=== PATIENT | female | born 1955 | race Caucasian/White ===

== ENCOUNTER 2022-12-03 09:27 | Emergency (ER) | payer MEDICARE, BC, SELFPAY ==
--- NOTE | 2022-12-03 09:30 | DI.RAD_ITS ---
Exam(s) XR WRIST LT COMP NAVICULAR EXAM: XR WRIST LT COMP NAVICULAR CLINICAL HISTORY: fall on stairs. TECHNIQUE: 2D digital imaging was performed. COMPARISON: No exams were available for comparison FINDINGS: Four views. There is a very subtle cortical irregularity the dorsal lateral aspect of the distal radius, possible subtle nondisplaced cortical fracture at this level. No other osseous findings. Correlation with s ite of tenderness recommended No osseous lesions. No radiopaque foreign body. IMPRESSION: Possible very subtle fracture on the dorsal lateral aspect of the distal radius just proximal to the radial styloid. Nondisplaced. DATA REPOSITORY: RADIATION DOSE DELIVERED:
[2022-12-03 09:33] VITALS: BP 138/48; PULSE 70; RESP 18; TEMP 36.2; O2SAT 93
--- NOTE | 2022-12-03 09:43 | W.ED.GENAD ---
Discharge Plan Disposition Patient Disposition: Home Condition: Good Discharge Details Clinical Impression: Closed fracture of radial styloid, Acute wrist pain, Abrasion of knee, Finger sprain Primary Care Provider: Oleg Trinidad ED Provider: Navya Jorgensen Discharge Instructions Instructions: Wrist Fracture in Adults (ED) Additional Instructions: As we discussed, there is the possibility of a small nondisplaced fracture in the wrist. I am more concerned with the scaphoid bone and potential injury to this. Please continue with the brace provided for the next 2 weeks until reevaluated by primary care and repeat imaging can be completed. Please encourage rest, ice, elevation. Tylenol and ibuprofen as needed for discomfort. Please monitor your abrasion for signs of infection including redness, warmth, drainage, increased pain, fever/chills. If you develop these or other new/worsening symptom please seek care urgently once again. Otherwise, please follow-up with primary care in 2 weeks for repeat imaging. Referrals: Oleg Trinidad [Primary Care Provider] - Discharge Data Discharge Date/Time-TO BE ENTERED AT DEPARTURE: 12/03/22 11:34 Medical Decision Making Patient is a pleasant 67 year old female presenting with c/c of left wrist and left middle finger pain after falling up stairs. States she has no other new area of pain but has chronic pain back and chronic SOB. Unchanged. No head injury, denies LOC. Suffered abrsion on left knee but states this is more from rug burn, no pain with ambulation. Cleaned the wound. Unknown tetanus. On exam, patient appears nontoxic. She is hemodynamically stable, resting comfortably. She does have a significant blood pressure discrepancy between the right and the left arm with the right being lower. She reports that this is typical. She states when she sees her primary care the initial blood pressure reading in the right arm is always low in the left arm is higher. They are concerned with her hypotension and have been trying to manage her medications around this. I am more concerned with the blood pressure discrepancy. However, patient states that this been going on for years and does not feel that this is an emergent issue today. The pulse on the right arm is slightly thready. Then down on the left arm. However, patient has no symptoms in the right arm and denies any pain. She does have a long history of smoking, has had cardiac stents placed. I did advise that she follow-up with her primary care regarding this blood pressure discrepancy and have placed a call to the [facility] and awaiting callback. Regard to the trauma, patient has no C-spine tenderness, no midline pain. Full range of motion. She has no pain with AP or lateral chest compression. Sensation is intact throughout. She has a circular abrasion on the left knee but no deep involvement, no effusion, ligamentously intact good range of motion. Pain and swelling is more in the distal radius of the left wrist. Patient is also point tender over the anatomical snuffbox. Pain with axial loading of the thumb. She does have some pain and swelling as well over the PIP of the left middle finger. Will obtain x-rays. She declines any further analgesics. FINDINGS: 3 views No evidence of acute fracture or dislocation.? No radiopaque foreign body.? Bone density age-appropriate.? No osseous lesions nor erosions IMPRESSION: Thickened osseous findings in finger. FINDINGS: Four views There is a very subtle cortical irregularity the dorsal lateral aspect of the distal radius, possible subtle nondisplaced cortical fracture at this level.? No other osseous findings.? Correlation with site of tenderness recommended No osseous lesions.? No radiopaque foreign body. IMPRESSION: Possible very subtle fracture on the dorsal lateral aspect of the distal radius just proximal to the radial styloid.? Nondisplaced. Discussed with patient. Thumb spica applied. Encouraged RICE. Advised repeat imaging. Advised f/u with PCP regarding BP. Strict return precautions discussed. Discussed supportive care. All of her questionsa nd concerns were addressed, she is in agreement with thsi plan. HPI General Date/Time Provider Initiated Documentation: 12/03/22 09:43. Limitations to Documentation: no limitations. Information obtained by: patient and RN notes reviewed. History of Present Illness 67 year old F presents to the emergency department with the chief complaint of left wrist, middle finger pain and abrasion to left knee, described as moderate, Quality is described as aching, and is localized to the left, upper extremity and lower extremity. Patient reports no radiation. Patient started experiencing this hour(s) and it has been constant. No relieving factors improve symptom(s), Movement worsens symptoms . Patient notes no other symptoms.. Patient did receive the following treatments prior to arrival, none General Stated Complaint: Orthopedic RAMON: 4 Review of Systems Constitutional Constitutional: Reports as per HPI, Denies fever(s), Denies headache(s) and Denies weakness ENT Ears, Nose, Mouth, and Throat: Denies headache(s) Cardiovascular Cardiovascular: Reports as per HPI and Denies chest pain Respiratory Respiratory: Reports as per HPI and Denies cough Musculoskeletal Musculoskeletal: Reports as per HPI and Denies tingling Integumentary/Breasts Skin/Breast: Reports as per HPI, Denies rash and Denies wounds Neurologic Neurologic: Reports as per HPI, Denies headache(s), Denies tingling, Denies paresthesias and Denies weakness [facility] All Active Problems (Updated 12/03/22 @ 11:31 by SHEREE Duvall) Closed fracture of radial styloid (Acute) Acute wrist pain (Acute) Abrasion of knee (Acute) Finger sprain (Acute) Social History Smoking risk assessment performed?: No Exam Const General: cooperative, healthy appearing, comfortable, no acute distress, well developed and well groomed Nutritional Appearance: average body habitus and well nourished Orientation: alert and awake [facility] Head: normal to inspection, no palpable skull fracture and atraumatic Neck Neck: normal visual inspection and full ROM Chest Chest: normal inspection of the chest and no tenderness Resp Effort & Inspection: normal respiratory effort, able to speak in complete sentences and no respiratory distress Auscultation: clear to auscultation bilaterally Cardio Rate: regular rate Rhythm: regular rhythm Heart Sounds: S1 normal and S2 normal Skin Trauma: abrasion (left knee) Neuro General: patient alert and patient awake Cognition: normal cognition Speech: speech normal Gait: normal gait Motor: muscle tone normal throughout Sensory Exam: no sensory deficits noted Extrem Elbow/forearm/wrist images: 1. Area of tenderness. No deformity. 2+ distal pulses. Sensation intact. Pain with axial thumb loading Hand/finger images: 1. Area of pain and swelling. No discoloration, palpable defomrity. Good ROM, intact capillary refill. Psych Appearance: grossly normal and well kempt Mental Status: mental status grossly normal Speech and Movement: speech and movement normal Course Vital Signs Vital signs: Vital Signs Temperature 36.2 C L 12/03/22 09:33 Pulse 70 12/03/22 09:33 Respiratory Rate 18 12/03/22 09:33 Blood Pressure 138/48 L 12/03/22 09:33 Pulse Oximetry 93 12/03/22 09:33 Temperature 36.2 C L 12/03/22 09:33 Temperature Source Temporal Artery Scan 12/03/22 09:33 Pulse 70 12/03/22 09:33 Respiratory Rate 18 12/03/22 09:33 Blood Pressure 138/48 L 12/03/22 09:33 Blood Pressure Position Sitting 12/03/22 09:33 Pulse Oximetry 93 12/03/22 09:33 Oxygen Delivery Method Room Air 12/03/22 09:33 Oxygen Flow Rate 0 12/03/22 09:33
--- NOTE | 2022-12-03 10:44 | DI.RAD_ITS ---
Exam(s) XR FINGER LT MIDDLE EXAM: XR FINGER LT MIDDLE CLINICAL HISTORY: fall on stairs. TECHNIQUE: 2D digital imaging was performed. COMPARISON: No exams were available for comparison FINDINGS: 3 views No evidence of acute fracture or dislocation. No radiopaque foreign body. Bone density age-appropri ate. No osseous lesions nor erosions IMPRESSION: Thickened osseous findings in finger. DATA REPOSITORY: RADIATION DOSE DELIVERED:
[2022-12-03 11:31] VITALS: BP 141/100; PULSE 72; RESP 20; O2SAT 91
== END 2022-12-03 11:34 | disposition home or self-care (01) ==
PROVIDERS: Emergency Provider Physician Assistant; PCP Family Medicine
DX: S52.512A Displaced fracture of left radial styloid process, initial encounter for closed fracture (principal); S80.212A Abrasion, left knee, initial encounter; S63.613A Unspecified sprain of left middle finger, initial encounter; W19.XXXA Unspecified fall, initial encounter
CPT/HCPCS: 90471; 99284; 73110; 73140

== ENCOUNTER → 2022-12-21 08:29 | Outpatient (CLI) | payer MEDICARE, SELFPAY ==
--- NOTE | 2022-12-21 14:26 | DI.RAD_ITS ---
Exam(s) XR WRIST LT COMPLETE EXAM: XR WRIST LT COMPLETE CLINICAL HISTORY: PAIN LEFT WRIST M25.532. TECHNIQUE: 2D digital imaging was performed of the left wrist. Three images were obtained. PA, obl ique and lateral views were obtained. COMPARISON: CR XR FINGER LT MIDDLE from 12/03/2022 CR XR WRIST LT COMP NAVICULAR from 12/03/2022 FINDINGS: BONES: There is a nondisplaced transverse fracture through the distal metaphysis of the left radius. No bony destructive lesion is seen. JOINTS: The carpal bones are normally aligned. SOFT TISSUE: Normal. IMPRESSION: Nondisplaced transverse fracture through the distal metaphysis of the left radius. Unexpected findings DATA REPOSITORY: RADIATION DOSE DELIVERED:
== END ==
PROVIDERS: PCP Family Medicine; Visit Provider Family Medicine
DX: S52.325A Nondisplaced transverse fracture of shaft of left radius, initial encounter for closed fracture (principal); X58.XXXA Exposure to other specified factors, initial encounter
CPT/HCPCS: 73110

== ENCOUNTER → 2023-10-16 01:18 | Outpatient (CLI) | payer MEDICARE, SELFPAY ==
--- NOTE | 2023-10-16 | DI.MAMMO_ITS ---
Exam(s) MAMMO SCREENING EXAM: MAMMO SCREENING CLINICAL HISTORY: SCREENING, Z12.39 TECHNIQUE: Bilateral full field digital CC and MLO mammographic images were obtained with 3D tomosyn thesis and utilizing computer aided detection (CAD). COMPARISON: Available for comparison. FINDINGS: Masses/Architectural Distortion: None seen. Microcalcifications: No suspicious pleomorphic-type are seen. Stable scattered calcifications are see n in both breasts which appear benign. Skin Thickening/Nipple Retraction: None. IMPRESSION: 1. No significant interval change with no specific features of malignancy noted. 2. Unless there is more urgent need, screening mammography is recommended, as per [employer] [place] [employer] guidelines. BI-RADS Category 2 - Benign Findings Breast Density - Category B - Scattered areas of fibroglandular density Breast density category C or D implies that the patient has dense breast tissue. Dense breast tissue is very common and is not abnormal but dense breast tissue can make it harder to find cancer on a ma mmogram. Also, dense breast tissue may increase their breast cancer risk. This information about the result of the mammogram report was provided to the patient to raise their awareness. Use this report when you speak with the patient about their risks for breast cancer, which includes their family hist ory. At that time, you may recommend for more screening tests (Ultrasound or MRI) as they might be us eful based on their risk. A negative radiographic report should not delay biopsy if a dominant or clinically suspicious mass is present. Up to ten percent of cancers are not identified on mammography. A negative report may reinforce clinical impression. Adenosis and dense breasts may obscure an underlying neoplasm. False positive reports average 6 to 10%. Patient will receive a letter notifying them of these results.
--- OUTSIDE RECORDS SUMMARY | 2023-10-16 01:22 | XMS_ITS | Encounter Summary ---
Author Organization [facility] [place] [address] Care Team Providers Care Security Services Manager Name Role Phone Oleg Trinidad MD Primary Care Provider [phone] Encounter Details Date Type Department Care Team (Latest Contact Info) Description 06/18/2023 8:00 AM EDT Laboratory Appointment Lab [address] [place] [address] HFrEF (heart failure with reduced ejection fraction) Social History Tobacco Use Types Packs/Day Years Used Date Smoking Tobacco: Some Days Cigarettes 0.3 50 Smokeless Tobacco: Never Comments:0.25-0.5 PPD Alcohol Use Standard Drinks/Week Comments No 0 (1 standard drink = 0.6 oz pur e alcohol) none in last 3 months Sex and Gender Information Value Date Recorded Sex Assigned at Not on file Gender Identity Not on file Sexual Orientation Not on file documented as of this encounter Plan of Treatment Upcoming Encounters Date Type Department Care Team (Late st Contact Info) Description 10/17/2023 10:30 AM EDT Appointment Non-[place] [address] Lea Jay MD [facility] CARDIOLOGY [place], [place] [id number] 10/17/2023 11:40 AM EDT Office Visit Cardiology at [address] [phone] Lea Jay MD [facility] [place] [address] 11/15/2023 10:00 AM EDT Hospital Encounter Non-Invasive Cardiology Lab [facility] [place] [phone] Arrived 11/21/2023 1:40 PM EDT Office Visit Cardiology at [address] [place] [phone] Lea Hodges MD [facility] [address] [place] [address] documented as of this encounter Goals Goal Patient Goal Type Associated Problems Recent Progress Patient-Stated? Author [facility] Medication Compliance and Understanding Patient Facing Action Plan Yahir Ball, [facility] Note: To live and see improvement in her heart function and ability to have good quality of life documented as of this encounter Procedures Procedure Name Priority Date/Time Associated Diagnosis Comments HC PROBNP STAT 06/18/2023 8:05 AM EDT HFrEF (heart failure with reduced ejection fraction) HC MAGNESIUM, SERUM Routine 06/18/2023 8 :05 AM EDT HFrEF (heart failure with reduced ejection fraction) HEPATIC FUNCTION PANEL Routine 06/18/2023 8:05 AM EDT HFrEF (heart failure with reduced ejection fraction) BASIC METABOLIC PANEL (NON-FASTING) Routine 06/18/2023 8:05 AM EDT HFrEF (heart failure with reduced ejection fraction) documented in this encounter Results * pro-Brain Natriuretic Peptide (06/18/2023 8:05 AM EDT) ProBNP 109 <=124 pg/mL [facility] Blood 06/18/2023 8:05 AM EDT 06/18/2023 8:13 AM EDT Narrative Resulting Agency Comment Spec In Lab Lea Jay MD CHEMISTRY ORDERABL ES Performing Organization Address [facility] Co de Phone Number [facility] [place] [address] * (ABNORMAL) Magnesium (06/18/2023 8:05 AM EDT) Magnesium 0.68(L) 0.69 - 1.07 mmol/L [facility] Blood 06/18/2023 8:05 AM EDT 06/18/2023 8:13 AM EDT Narrative Resulting Agency Comment Spec In Lab Lea Jay MD CHEMISTRY ORDERABL ES Performing Organization Address [facility] de Phone Number [facility] [place] [address] * Hepatic Function Panel (06/18/2023 8:05 AM EDT) Total Protein 7.0 6.1 - 8.0 g/dL [facility] Albumin 4.6 3.2 - 5.2 g/dL [facility] AST 12 0 - 30 unit/L [facility] ALT 10 0 - 30 unit/L [facility] Alk Phos 74 35 - 105 unit/L [facility] Total Bilirubin 0.4 0.2 - 1.3 mg/dL [facility] Bili, Direct 0.1 0.0 - 0.3 mg/dL [facility] Blood 06/18/2023 8:05 AM EDT 06/18/2023 8:13 AM EDT Narrative Resulting Agency Comment Spec In Lab Lea Jay MD CHEMISTRY ORDERABL ES Performing Organization Address [facility] Co de Phone Number [facility] [place] [address] * (ABNORMAL) Basic Metabolic Panel (non-fasting) (06/18/2023 8:05 AM EDT) Glucose Lvl 106 65 - 199 mg/dL [facility] Comment:Diabetes: >=200 mg/d L plus symptoms BUN 21(H) 8 - 18 mg/dL [facility] Creatinine 1.04 0.70 - 1.20 mg/dL [facility] Sodium 139 135 - 145 mmol/L [facility] Potassium 4.1 3.5 - 5.0 mmol/L [facility] Comment: Please note: ??Patients with WBC >100,000 may have falsely elevated Potassium levels. ??For accurate Potassium quantification in these patients send serum separator tube (gold top) for subsequent determinations. ??Contact the Clinical Chemistry Laboratory if there are any questions. Chloride 99 98 - 107 mmol/L [facility] CO2 29 22 - 31 mmol/L [facility] Anion Gap 11 5 - 15 mmol/L [facility] Calcium 9.7 8.5 - 10.5 mg/dL [facility] Estimated GFR 59(L) >=60 mL/min/1. 73 m?? [facility] Comment: This patient's estimated GFR was calculated using the 2020 CKD-EPI equation. The estimated GFR can vary from the measured GFR by up to 30% in the absence of rapidly changing kidney function. Assessment of the estimated GFR is not appropriate when creatinine concentrations are rapidly changing. For clinical situations in which a more precise estimate of GFR is necessary, consider alternative methods of GFR estimation such as a 24-hour urine creatinine clearance. Assignment of CKD stage 1-5 for patients with an eGFR near the transition point between stages may be based on clinical assessment of muscle mass and symptoms in addition to eGFR. Blood 06/18/2023 8:05 AM EDT 06/18/2023 8:13 AM EDT Narrative Resulting Agency Comment Spec In Lab Lea Jay [place] [address] documented in this encounter Visit Diagnoses Diagnosis HFrEF (heart failure with reduced ejection fraction) documented in this encounter Care Teams Security Services Manager Relationship Specialty Start Date End Date Oleg Trinidad MD [address] [place] [address] PCP - General Family Medicine 07/31/21 documented as of this encounter
--- OUTSIDE RECORDS SUMMARY | 2023-10-16 01:22 | XMS_ITS | Encounter Summary ---
Author [facility] [place] [address] Care Team Providers Care English And Reading Instructor Name Role Phone Oleg Trinidad MD Primary Care Provider [phone] Encounter Details Date Type Department Care Team (Latest Contact Info) Description 08/20/2023 10:27 AM EDT Hospital Encounter Non-[place]vasive [place] [address] [place] [address] HFrEF (heart failure with reduced ejection fraction) Discharge Disposition: Home Social History Tobacco Use Types Packs/Day Years [...] on file documented as of this encounter Medications at Time of Discharge Medication Sig Dispensed Refills Start Date End Date nicotine polacrilex (Commit) [address] 1 lozenge inside cheek as needed for Smoking cessation (use for cravings up to every 2 hours as needed). 200 tablet 6 06/18/2023 furosemide (Lasix) 40 mg tablet Take 1 tablet by mouth daily. 60 tablet 11 08/28/2022 sacubitriL-valsartan (Entresto) 24-26 mg Tablet tabletIndications:Chron ic systolic (congestive) heart failure Take 1 tablet by mouth 2 times daily. 180 tablet 3 02/09/2022 metFORMIN (Glucophage) 1,000 mg Tablet Take 1 tablet by mouth 2 times daily (with meals). 60 tablet 12 12/15/2021 traMADoL (Ultram) 50 mg Tablet Take 50 mg by mouth every 12 hours as needed for Pain (taking only 1 tab every morning). empagliflozin (Jardiance) 10 mg Tablet Take 1 tablet by mouth daily. 30 tablet 11 03/27/2021 naproxen sodium (ALEVE) 220 mg Capsule Take by mouth. colchicine (Colcrys) 0.6 mg Tablet Take 0.6 mg by mouth daily as needed. acetaminophen (Tylenol) 325 mg Tablet 1 tablet orally as needed EPINEPHrine 0.3 mg/0.3 mL Auto-Injector Inject 0.3 mg into the muscle. atorvastatin (Lipitor) 80 mg Tablet Take 1 tablet by mouth every evening. 90 tablet 3 02/26/2021 famotidine (Pepcid) 20 mg Tablet Take 1 tablet by mouth 2 times daily. 30 tablet 12 02/26/2021 levothyroxine (Synthroid) 50 mcg Tablet Take 1 tablet by mouth daily. 90 tablet 3 02/27/2021 magnesium oxide (Mag-Ox) 400 mg (241.3 mg magnesium) Tablet Take 1 tablet by mouth 2 times daily. 30 tablet 12 02/26/2021 metoprolol succinate XL (Toprol-XL) 100 mg Tablet Sustained Release 24 hr Take 1 tablet by mouth daily. 30 tablet 12 02/27/2021 allopurinoL (Zyloprim) 100 mg Tablet Take 100 mg by mouth as needed (for Gout attacks). ergocalciferoL, vitamin D2, (vitamin D2) 50,000 unit Capsule Take 50,000 Units by mouth once a week. nitroGLYcerin (NITROSTAT) 0.[address] 1 tablet under the tongue daily as needed for Chest pain. 90 tablet 3 05/07/2012 aspirin 81 mg EC tablet Take 81 mg by mouth daily. multivitamin (THERAGRAN) tablet Take 1 tablet by mouth daily. documented as of this encounter Plan of Treatment Upcoming Encounters Date Type Department Care Team (Late st Contact Info) Description 10/17/2023 10:30 AM EDT Appointment Non-[place] [phone] [place] [address] 10/17/2023 11:40 AM EDT Office Visit Cardiology at [address] [phone] [place] [address] 11/15/2023 10:00 AM EDT Hospital Encounter Non-[place]vasive [place] [phone] Arrived 11/21/2023 1:40 PM EDT Office Visit Cardiology at [address] [phone] Lea Hodges MD [facility] [place] [address] documented as of this encounter Goals Goal Patient Goal Type Associated Problems Recent Progress Patient-Stated? Author [facility] Home Medication Compliance and Understanding Patient Facing Action Plan Yahir Ball, [facility] Note: To live and see improvement in her heart function and ability to have good quality of life documented as of this encounter Procedures Procedure Name Priority Date/Time Associated Diagnosis Comments NUCLEAR PHARMACOLOGIC STRESS CARDIOLOGY Routine 08/20/2023 12:07 PM EDT HFrEF (heart failure with reduced ejection fraction) documented in this encounter Results * Nuclear Pharmacologic Stress Cardiology (08/20/2023 12:07 PM EDT) Anatomical Region Laterality Modality Other Lea Jay MD [facility] documented in this encounter Visit Diagnoses Diagnosis HFrEF (heart failure with reduced ejection fraction) documented in this encounter Care Teams English And Reading Instructor Relationship Specialty Start Date End Date Oleg Trinidad MD [address] [place] [address] PCP - General Family Medicine 07/31/21 documented as of this encounter
--- OUTSIDE RECORDS SUMMARY | 2023-10-16 01:22 | XMS_ITS | Encounter Summary ---
Author Organization [facility]iano [facility] [place] [address] Care Team Providers Care Animal Trainer Name Role Phone Oleg Trinidad MD Primary Care Provider [phone] Encounter Details Date Type Department Care Team (Latest Contact Info) Description 08/17/2023 10:00 AM EDT - 08/17/2023 11:59 PM EDT Hospital Encounter [place] [address] Discharge Disposition: Home Social History Tobacco Use [...] Upcoming Encounters Date Type Department Care Team (Dang muir Contact Info) Description 10/17/2023 10:30 AM EDT Appointment Non-[place] [address] [place] [address] 10/17/2023 11:40 AM EDT Office Visit Cardiology at [address] [phone] [place] [address] 11/15/2023 10:00 AM EDT Hospital Encounter Non-[place] [phone] Arrived 11/21/2023 1:40 PM EDT Office Visit Cardiology at [address] [phone] Lea Hodges MD [facility] [place] [address] documented as of this encounter Goals Goal Patient Goal Type Associated Problems Recent Progress Patient-Stated? Author [facility] Home Medication Compliance and Understanding Patient Facing Action Plan Yahir Ball, [facility] Note: To live and see improvement in her heart function and ability to have good quality of life documented as of this encounter Visit Diagnoses Not on filedocumented in this encounter Care Teams Animal Trainer Relationship Specialty Start Date End Date Olge Trinidad MD [address] [place] [address] PCP - General Family Medicine 07/31/21 documented as of this encounter
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
--- OUTSIDE RECORDS SUMMARY | 2023-10-16 01:22 | XMS_ITS | Encounter Summary ---
Author Organization [facility] [place] [address] Care Team Providers Care Manager Mission Name Role Phone Oleg rTinidad MD Primary Care Provider [phone] Reason for Referral * Diagnostic Test (Routine) - Closed Specialty Diagnoses / Procedures Referred By Shyam agarwal Referred To Contact Cardiology Diagnoses Cardiomyopathy, unspecified type ICD (implantable cardioverter-defibrillator) in place Procedures Ziopatch 48 Hrs-15 Days Ziopatch 48 Hrs-15 Days Julissa Lomas APRN [facility] [place] [address] [facility] [place] [address] Referral ID Status Reason Start Date Expiration Date V isits Requested Visits Authorized [id number] Closed Specialty Service Requested 04/24/2023 04/23/2024 1 1 Reason for Visit * Diagnostic Test (Routine) - Closed Specialty Diagnoses / Procedures Referred By Shyam agarwal Referred To Contact Cardiology Diagnoses Cardiomyopathy, unspecified type ICD (implantable cardioverter-defibrillator) in place Procedures Ziopatch 48 Hrs-15 Days Ziopatch 48 Hrs-15 Days Julissa Lomas APRN [facility] [place] [address] [facility] [place] [address] Referral ID Status Reason Start Date Expiration Date V isits Requested Visits Authorized [id number] Closed Specialty Service Requested 04/24/2023 04/23/2024 1 1 Encounter Details Date Type Department Care Team (Latest Contact Info) Description 06/03/2023 6:52 AM EDT - 06/03/2023 11:59 PM EDT Hospital Encounter Non-Invasive [place] [phone] Julissa Lomas APRN [facility] [place] [address] Cardiomyopathy, unspecified type; ICD (implantable cardioverter-defibr illator) in place Discharge Disposition: Home Social History Tobacco Use [...] Sig Dispensed Refills Start Date End Date furosemide (Lasix) 40 mg tablet Take 1 tablet by mouth daily. 60 tablet 11 08/28/2022 sacubitriL-valsartan (Entresto) 24-26 mg Tablet tabletIndications:Chroni c systolic (congestive) heart failure Take 1 tablet [...] 10:30 AM EDT Appointment Non-Invasive [place] [address] Lea Jay MD [facility] [place] [address] 10/17/2023 11:40 AM EDT Office Visit Cardiology at [address] [phone] Lea Jay MD [facility] [place] [address] 11/15/2023 10:00 AM EDT Hospital Encounter Non-Invasive [place] [address] Arrived 11/21/2023 1:40 PM EDT Office Visit Cardiology at [address] [phone] Lea Hodges MD [facility] [place] [address] documented as of this encounter Goals Goal Patient Goal Type Associated Problems Recent Progress Patient-Stated? Author [facility] Medication Compliance and Understanding Patient Facing Action Plan Yahir Ball, [facility] Note: To live and see improvement in her heart function and ability to have good quality of life documented as of this encounter Procedures Procedure Name Priority Date/Time Associated Diagnosis Comments ZIOPATCH 48 HRS-15 DAYS Routine 06/03/2023 6:52 AM EDT Cardiomyopathy, unspecified type ICD (implantable cardioverter-defibri llator) in place documented in this encounter Results * Ziopatch 48 Hrs-15 Days (06/03/2023 6:52 AM EDT) Total Enrollment Period 14.0 IRHYTHM Anatomical Region Laterality Modality Other 06/03/2023 Narrative 07/03/2023 5:34 PM EDT [facility] ? Zio Patch? Ambulatory Cardiac Event Monitor Report Duration of recording : 8 days 21 hours Indication: Cardiomyopathy Summary Data Predominant rhythm: The predominant rhythm is sinus rhythm with bundle branch block. ??The average rate is 79 bpm (range 56 to 131 bpm). ?? Sinus rates >100bpm occurred 2% of the time. Sinus rates <50bpm occurred 0% of the time. Atrial fibrillation: None Pauses: None Atrial ectopic beats: Rare atrial premature beats (APC? s) Ventricular ectopic beats: Rare ventricular premature beats (VPC's) (less than 1%) No high grade ectopy Abnormal tachycardia: -There were 5 episodes of NSVT. ??The longest lasted 6 beats with an average rate of 115 bpm. ??The run with the fastest interval lasted 3 beats with a maximum rate of 184 bpm. -There were 5 episodes of SVT. ??The longest lasted 13.6 seconds with an average rate of 143 bpm. ??The fastest interval lasted 5 beats with a maximum rate of 197 bpm. Triggered and Patient Diary Events There were 0 triggered and 0 patient diary events Conclusion(s): ?? No sustained arrhythmias. The predominant rhythm is normal sinus rhythm with an average rate of 79 bpm. There were rare isolated PVCs. There were brief, self-limited, asymptomatic episodes of SVT and NSVT as described above. Julissa Lomas APRN [facility] documented in this encounter Visit Diagnoses Diagnosis Cardiomyopathy, unspecified type ICD (implantable cardioverter-defibrillator) in place documented in this encounter Care Teams Manager Mission Relationship Specialty Start Date End Date Oleg Trinidad MD [address] [place] [address] PCP - General Family Medicine 07/31/21 documented as of this encounter
--- OUTSIDE RECORDS SUMMARY | 2023-10-16 01:22 | XMS_ITS | Encounter Summary ---
Author Organization [facility] [place] [address] Care Team Providers Care Treatment Specialist Name Role Phone Oleg Trinidad MD Primary Care Provider [phone] Reason for Visit * Diagnostic Test (Routine) - Closed Specialty Diagnoses / Procedures Referred By Shyam t Referred To Contact Radiology Diagnoses HFrEF (heart failure with reduced ejection fraction) Procedures NM Pharmacologic Stress and Rest Myocardial [place]fusion [place] [address] [place] [address] Referral ID Status Reason Start Date Expiration Date V isits Requested Visits Authorized [id number] Closed Specialty Service Requested 07/01/2023 12/30/2024 1 1 Encounter Details Date Type Department Care Team (Latest Contact Info) Description 08/20/2023 10:27 AM EDT Hospital Encounter [place] [phone] [place] [address] Discharge Disposition: Home Social History Tobacco Use [...] 10:30 AM EDT Appointment Non-[place] [phone] [place] [address] 10/17/2023 11:40 AM EDT Office Visit Cardiology at [address] [phone] [place] [address] 11/15/2023 10:00 AM EDT Hospital Encounter Non-[place] [phone] Arrived 11/21/2023 1:40 PM EDT Office Visit Cardiology at [address] [phone] Lea Hodges MD [facility] [place] [address] documented as of this encounter Goals Goal Patient Goal Type Associated Problems Recent Progress Patient-Stated? Author [facility] Medication Compliance and Understanding Patient Facing Action Plan Yahir Ball, [facility] Note: To live and see improvement in her heart function and ability to have good quality of life documented as of this encounter Procedures Procedure Name Priority Date/Time Associated Diagnosis Comments NM PHARMACOLOGIC STRESS AND REST MYOCARDIAL PERFUSION Routine 08/20/2023 12:06 PM EDT HFrEF (heart failure with reduced ejection fraction) documented in this encounter Visit Diagnoses Not on filedocumented in this encounter Administered Medications Inactive Administered Medications - up to 3 most recent administrations Medication Order MAR Action Action Date Dose Rate Site regadenoson (Lexiscan) injection 0.4 mg 0.4 mg, Intravenous, ONCE, 1 dose, On Sat08/20/23 at 1230, Radiology Contrast, Routine Given 08/20/2023 12:00 PM EDT 0.4 mg technetium (Tc-99m) sestamibi injection 0-30 mCi 0-30 mCi, Intravenous, 2 TIMES DAILY PRN, 2 doses, Starting on Sat08/20/23 at 1046, Until Sat08/20/23 at 1200, Per Protocol, Radiology Contrast, Routine Given 08/20/2023 12:00 PM EDT 24.2 mCi Right Arm Given 08/20/2023 10:40 AM EDT 8.4 mCi documented in this encounter Care Teams Treatment Specialist Relationship Specialty Start Date End Date Oleg Trinidad MD [address] [place] [address] PCP - General Family Medicine 07/31/21 documented as of this encounter
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
--- OUTSIDE RECORDS SUMMARY | 2023-10-16 01:22 | XMS_ITS | Encounter Summary ---
Author Organization [facility] [place] [address] Care Team Providers Care Grievance And Appeals Coordinator Name Role Phone Oleg Trinidad MD Primary Care Provider [phone] Reason for Referral * Diagnostic Test (Routine) - Closed Specialty Diagnoses / Procedures Referred By Contac t Referred To Contact Radiology Diagnoses HFrEF (heart failure with reduced ejection fraction) Procedures NM Pharmacologic Stress and Rest Myocardial Perfusion [place] [address] [place] [address] Referral ID Status Reason Start Date Expiration Date V isits Requested Visits Authorized [id number] Closed Specialty Service Requested 07/01/2023 12/30/2024 1 1 Reason for Visit * Diagnostic Test (Routine) - Closed Specialty Diagnoses / Procedures Referred By Contac t Referred To Contact Radiology Diagnoses HFrEF (heart failure with reduced ejection fraction) Procedures NM Pharmacologic Stress and Rest Myocardial Perfusion [place] [address] [facility] [place] [address] Referral ID Status Reason Start Date Expiration Date V isits Requested Visits Authorized [id number] Closed Specialty Service Requested 07/01/2023 12/30/2024 1 1 Encounter Details Date Type Department Care Team (Latest Contact Info) Description 08/20/2023 10:27 AM EDT Hospital Encounter [place] [address] Lea Jay MD [facility] [place] [address] HFrEF (heart failure with reduced ejection fraction) [...] 10:30 AM EDT Appointment [place] [address] Lea Jay MD [facility] [address] 10/17/2023 11:40 AM EDT Office Visit Cardiology at [address] [phone] Lea Jay MD [facility] [place] [address] 11/15/2023 10:00 AM EDT Hospital Encounter [place] [address] Arrived 11/21/2023 1:40 PM EDT Office Visit Cardiology at [address] [phone] Lea Hodges MD [facility] [place] [address] documented as of this encounter Goals Goal Patient Goal Type Associated Problems Recent Progress Patient-Stated? Author [facility] Medication Compliance and Understanding Patient Facing Action Plan Yahir Ball, [facility] Note: To live and see improvement in her heart function and ability to have good quality of life documented as of this encounter Procedures Procedure Name Priority Date/Time Associated Diagnosis Comments NM PHARMACOLOGIC STRESS AND REST MYOCARDIAL PERFUSION Routine 08/20/2023 12:06 PM EDT HFrEF (heart failure with reduced ejection fraction) documented in this encounter Results * NM Pharmacologic Stress and Rest Myocardial Perfusion (08/20/2023 12:06 PM EDT) WORKSTATION ID [id number] [facility] Anatomical Region Laterality Modality Nuclear Medicine Impressions [...] who have questions please contact the health care transport nurse that requested your imaging first. ? Narrative [...] patients who have questions please contactthe health care transport nurse that requested your imaging first. Lea Jay MD IMG NM ORDERABLES documented in this encounter Visit Diagnoses Diagnosis HFrEF (heart failure with reduced ejection fraction) documented in this encounter Administered Medications Inactive Administered Medications - up to 3 most recent administrations Medication Order MAR Action Action Date Dose Rate Site technetium (Tc-99m) sestamibi injection 0-30 mCi 0-30 mCi, Intravenous, 2 TIMES DAILY PRN, 2 doses, Starting on Sat08/20/23 at 1046, Until Sat08/20/23 at 1200, Per Protocol, Radiology Contrast, Routine Given 08/20/2023 12:00 PM EDT 24.2 mCi Right Arm Given 08/20/2023 10:40 AM EDT 8.4 mCi documented in this encounter Care Teams Grievance And Appeals Coordinator Relationship Specialty Start Date End Date Oleg Trinidad MD [address] [place] [address] PCP - General Family Medicine 07/31/21 documented as of this encounter
--- OUTSIDE RECORDS SUMMARY | 2023-10-16 01:22 | XMS_ITS | Encounter Summary ---
Author Organization [facility] [place] [address] Care Team Providers Care Per Diem Name Role Phone Oleg Trinidad MD Primary Care Provider [phone] Encounter Details Date Type Department Care Team (Latest Contact Info) Description 06/18/2023 Travel Social History Tobacco Use Types Packs/Day Years [...] 10:30 AM EDT Appointment Non[place] [phone] Lea Jay MD [facility] [place] [address] 10/17/2023 11:40 AM EDT Office Visit Cardiology at [address] [phone] Lea Jay MD [facility] [place] [address] 11/15/2023 10:00 AM EDT Hospital Encounter Non-[place] [phone] Arrived 11/21/2023 1:40 PM EDT Office Visit Cardiology at [address] [phone] Lea Hodges MD [facility] [place] [address] documented as of this encounter Goals Goal Patient Goal Type Associated Problems Recent Progress Patient-Stated? Author [facility] Medication Compliance and Understanding Patient Facing Action Plan No Yahir Mcallister, [facility] Note: To live and see improvement in her heart function and ability to have good quality of life documented as of this encounter Visit Diagnoses Not on filedocumented in this encounter Care Teams Per Diem Relationship Specialty Start Date End Date Oleg Trinidad MD [address] [place] [address] PCP - General Family Medicine 07/31/21 documented as of this encounter
--- OUTSIDE RECORDS SUMMARY | 2023-10-16 01:22 | XMS_ITS | Encounter Summary ---
Author Organization [facility] [place] [address] Care Team Providers Care Clinical Faculty Name Role Phone Oleg Trinidad MD Primary Care Provider [phone] Reason for Visit * Diagnostic Test (Routine) - Closed Specialty Diagnoses / Procedures Referred By Shyam t Referred To Contact Radiology Diagnoses HFrEF (heart failure with reduced ejection fraction) Procedures NM Pharmacologic Stress and Rest Myocardial [place] [address] [place] [address] Referral ID Status Reason Start Date Expiration Date V isits Requested Visits Authorized [id number] Closed Specialty Service Requested 07/01/2023 12/30/2024 1 1 Encounter Details Date Type Department Care Team (Latest Contact Info) Description 08/20/2023 10:27 AM EDT Hospital Encounter [place] [address] [place] [address] Discharge Disposition: Home Social History [...] 10:30 AM EDT Appointment Non-[place] [phone] [place] [address] 10/17/2023 11:40 AM EDT Office Visit Cardiology at [address] [phone] [place] [address] 11/15/2023 10:00 AM EDT Hospital Encounter Non-[place] [phone] Arrived 11/21/2023 1:40 PM EDT Office Visit Cardiology at [address] [address] Lea Hodges MD [facility] [place] [address] documented as of this encounter Goals Goal Patient Goal Type Associated Problems Recent Progress Patient-Stated? Author [facility] Medication Compliance and Understanding Patient Facing Action Plan Yahir Ball, [facility] Note: To live and see [...] Perfusion (08/20/2023 12:06 PM EDT) WORKSTATION ID [id number] RAD Anatomical Region Laterality Modality Nuclear Medicine Impressions [...] who have questions please contact the health specialist wound care that requested your imaging first. ? Narrative [...] patients who have questions please contactthe health specialist wound care that requested your imaging first. Lea Jay MD IMG NM ORDERABLES documented in this encounter Visit Diagnoses Not on filedocumented in this encounter Care Teams Clinical Faculty Relationship Specialty Start Date End Date Oleg Trinidad MD [address] [place] [address] PCP - General Family Medicine 07/31/21 documented as of this encounter
--- OUTSIDE RECORDS SUMMARY | 2023-10-16 01:22 | XMS_ITS | Encounter Summary ---
Author Organization [facility] [place] [address] Care Team Providers Care Svp Digital Sales Name Role Phone Oleg Trinidad MD Primary Care Provider [phone] Reason for Referral * Diagnostic Test (Routine) - Authorized Specialty Diagnoses / Procedures Referred By Contac t Referred To Contact Cardiology Diagnoses HFrEF (heart failure with reduced ejection fraction) Procedures Echocardiogram [place]an[place]hor[place] [address] [facility] [place] [address] Referral ID Status Reason Start Date Expiration Date Visits Requested Visits Authorized [id number] Authorized Specialty Service Requested 06/18/2023 06/17/2024 1 1 * Diagnostic Test (Routine) - New Request Specialty Diagnoses / Procedures Referred By Contac t Referred To Contact Radiology Diagnoses HFrEF (heart failure with reduced ejection fraction) Procedures NM Exercise Stress and Rest Myocardial [place] [address] [facility] [place] [address] Referral ID Status Reason Start Date Expiration Date Visits Requested Visits Authorized [id number] New Request Specialty Service Requested 06/18/2023 12/17/2024 1 1 * Diagnostic Test (Routine) - New Request Specialty Diagnoses / Procedures Referred By Contac t Referred To Contact Cardiology Diagnoses HFrEF (heart failure with reduced ejection fraction) Procedures Nuclear Exercise Stress [place] [address] [facility] [place] [address] Referral ID Status Reason Start Date Expiration Date Visits Requested Visits Authorized [id number] New Request Specialty Service Requested 06/18/2023 06/17/2024 1 1 * Diagnostic Test (Routine) - New Request Specialty Diagnoses / Procedures Referred By Contac t Referred To Contact Radiology Diagnoses HFrEF (heart failure with reduced ejection fraction) Procedures NM Exercise Stress [place] [address] [facility] [place] [address] Referral ID Status Reason Start Date Expiration Date Visits Requested Visits Authorized [id number] New Request Specialty Service Requested 06/18/2023 12/18/2024 1 1 Encounter Details Date Type Department Care Team (Late st Contact Info) Description 06/18/2023 9:00 AM EDT Office Visit Cardiology at [address] [address] [place] [address] HFrEF (heart failure with reduced ejection fraction) [...] on file documented as of this encounter Last Filed Vital Signs Vital Sign Reading Time Taken Comments Blood Pressure 121/67 06/18/2023 8:51 AM EDT Pulse 86 06/18/2023 8:51 AM EDT Temperature - - Respiratory Rate - - Oxygen Saturation 96% 06/18/2023 8:51 AM EDT Inhaled Oxygen Concentration - - Weight 67.7 kg (149 lb 4.8 oz) 06/18/2023 8:51 A M EDT Height 162.6 cm (5' 4) 06/18/2023 8:51 AM EDT Body Mass Index 25.63 06/18/2023 8:51 AM EDT documented in this encounter Patient Instructions * Patient Instructions* Lea Jay MD - 06/18/2023 9:00 AM EDT Great to see you We will get a stress test and an echocardiogram. We will follow up after this to discuss next steps. If you need to reach me, you can call my nurse line at [phone] Lea Jay MD Advanced Cardiac Disease and Pulmonary Hypertension documented in this encounter Progress Notes * Cole Chairez MD - 06/18/2023 9:00 AM EDT [facility] Note Name: Stacy Esparza Date: 06/18/2023 History of Present Illness Stacy Esparza is a 67 y.o. 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 #HFrEF - Index LVEF 35% -> 52% -> 25-30% -> 15-20% #ASCVD - S/p RCA PCI HUGO 2012 with residual mLAD stenosis; ISR RCA by angiography 01/2021 #HTN #HLD #Pre-diabetes #Hypothyroid #Gout #Chronic respiratory failure on home O2; emphysema Internal Events Since last visit with me 08/28/22 (visit prior to this was 01/2022): - Reports she overall feels good - Currently with ziopatch, prompted by ICD report - Reports no palpitations associated with transient tachycardia - New chest pains in last week - Intermittent dull pain in left midclavicular chest, lasts for approximately - Last for about 15 minutes, occurs approximately once per day - No clear remitting or aggravating factors - Has occurred at rest every time, laying down on cough most times - No association with food - All episodes happened in the afternoon - No associated SOB, GONZALEZ, lightheadedness, palpitations - Last occurred 5 days ago, no recurrence since - No SOB or GONZALEZ - Able to ambulate from parking lot to [address] [place] [address] without difficulty, but slightly SOB at end - better than baseline - 1 pillow at night, no orthopnea - Currently taking lasix 40mg, discontinued since last visit but then restarted by PCP for recurrent GONZALEZ - Ongoing tobacco use, smoking, Stacy notes she has cut back substantially - has used gum, lozenge, patch in past with little relief - Stacy inquired about addition of fish oil and benefits Review of Systems All other 12 point review of systems negative except as noted above. Past Medical History Patient Active Problem List Diagnosis ICD (implantable cardioverter-defibrillator) in place Cardiomyopathy CAD (coronary artery disease) Other primary cardiomyopathies Alcohol abuse, unspecified Hyperpotassemia Cardiogenic shock Unspecified hypothyroidism Full Medication List No outpatient medications have been marked as taking for the 06/18/23 encounter (Appointment) with Lea Jay MD. Allergies Allergies Allergen Reactions Hornet Venom Anaphylaxis Lisinopril Other (See Comments) cough Other reaction(s): Cough Venom-Honey Bee Social & Family History TOB: Social History Tobacco Use Smoking Status Some Days Packs/day: 0.25 Years: 50.00 Additional pack years: 0.00 Total pack years: 12.50 Types: Cigarettes Smokeless Tobacco Never Tobacco Comments 0.25-0.5 PPD ETOH: Social History Substance and Sexual Activity Alcohol Use No Comment: none in last 3 months 06/18/2023 Illicits: Social History Substance and Sexual Activity Drug Use No FHx: No family history on file. Physical Exam Vitals: 06/18/23 0851 BP: 121/67 Pulse: 86 SpO2: 96% Weight: 67.7 kg (149 lb 4.8 oz) Height: 162.6 cm (5' 4) General: Alert, oriented, conversant, NAD HEENT: Normocephalic, atraumatic Cardiac: RRR, no murmurs, rubs, or gallops Pulm: lungs CTAB Ext: No LE edema Relevant Labs Last 3 Lytes Recent Labs 06/18/23 0805 NA 139 K 4.1 CL 99 CO2 29 BUN 21* CREATININE 1.04 Last Ca, Mg, Phos Recent Labs 06/18/23 0805 CALCIUM 9.7 MAGNESIUM 0.68* Last 3 ProBNP, Trop, CK Recent Labs 06/18/23 0805 PROBNP 109 Relevant CardiacStudies TTE 08/13: Left ventricle is severely dilated. Wall thickness is normal. Left ventricular systolic function is severely reduced. The left ventricular ejection fraction is 24% by Guzman's biplane. The left ventricular ejection fraction is 24% by 3D volumetric assessment. Global longitudinal strain is measured at -8.2 %. ([employer]). Severe global hypokinesis. TTE 03/14: 1. The left ventricle is severely dilated. Global left ventricular systolic function is severely and diffusely reduced with EF 15-20%. No mural thrombus is seen. 2. The right ventricle is normal in size but RV systolic function is moderately reduced. The free wall of the right ventricle appears akinetic. 3. There is moderate (2+/4+) mitral regurgitation related to restricted closure of both mitral valve leaflets. 4. The descending aorta is not well seen but may be dilated. There is a small to moderate pericardial effusion. 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 She is NYHA class II with current stable diuretic requirement. She is predominantly limited by low back pain. New chest pain last week concerning for possible ischemic etiology. Will plan on Cardiac Stress test. She notably experienced flash pulmonary edema during LHC in 2020 which was haunting experience for her, would proceed to recurrent LHC judiciously. #HFrEF: d/t ?viral c/b ischemia, RCA SALES AND MARKETING ANALYST on cath. EF 26%, NYHA 2-3. S/P ICD. Appears euvolemic and well compensated. Pro BNP has now normalized - Beta marita: Mertop succ 100mg QD - RASi: Entresto 24/26mg BID (hasn't been able to assess BP at home) - MRA: [place] 12.5mg PO QD NOT TAKING Discontinued 08/28/22 due to hyperkalemia - SGLT-2 Empa 10mg QD - Diuretic: taking lasix 40 for GONZALEZ/weight gain, started last visit, discontinued and restarted by PCP in interim --will update echocardiogram #CAD: SALES AND MARKETING ANALYST of RCA on cath from 02/12, 50% mLAD lesion, no angina - ASA 81mg QD - Atrova 80mg QD - OBTAIN NM Stress Test #HL: LDL 30 in 08/13 on 80 atorva - Statin: Atorvab 40mg PO QD #DM: HbA1c: 5.6 --on jardiance and metformin #Smoking Cessation - START nicotine lozenge 2mg q2h PRN this visit 06/18/23, gum deferred due to dental concerns #Hypomagnesemia - Mag 0.68 today, recommend starting magnesium glycinate OTC supplementation - she was taking magnesium oxide until recent discontinuation due to diarrhea Return in about 3 months (around 09/18/2023). Lea Jay MD Advanced Cardiac Disease and Pulmonary Hypertension documented in this encounter Plan of Treatment Upcoming Encounters Date Type Department Care Team (Late st Contact Info) Description 10/17/2023 10:30 AM EDT Appointment Non[place] [address] Lea Jay MD [facility] [place] [address] 10/17/2023 11:40 AM EDT Office Visit Cardiology at [address] [phone] Lea Jay MD [facility] [place] [address] 11/15/2023 10:00 AM EDT Hospital Encounter Non-[place] [phone] Arrived 11/21/2023 1:40 PM EDT Office Visit Cardiology at [address] [phone] Lea Hodges MD [facility] [place] [address] Scheduled Orders Name Type Priority Associated Diagnoses Order Schedule NM Exercise Stress CT Component Imaging Routine HFrEF (heart failure with reduced ejection fraction) Expected: 06/19/2023 (Approximate), Expires: 06/17/2024 Nuclear Exercise Stress Cardiology Cardiac Services Routine HFrEF (heart failure with reduced ejection fraction) Expected: 06/19/2023 (Approximate), Expires: 06/17/2024 NM Exercise Stress and Rest Myocardial Perfusion Imaging Routine HFrEF (heart failure with reduced ejection fraction) Expected: 06/19/2023 (Approximate), Expires: 06/17/2024 Echocardiogram Transthoracic Echocardiography Routine HFrEF (heart failure with reduced ejection fraction) Expected: 12/19/2023, Expires: 06/19/2024 documented as of this encounter Goals Goal Patient Goal Type Associated Problems Recent Progress Patient-Stated? Author DH Home Medication Compliance and Understanding Patient Facing Action Plan Yahir Ball, [facility] Note: To live and see improvement in her heart function and ability to have good quality of life documented as of this encounter Results * pro-Brain Natriuretic Peptide (06/18/2023 8:05 AM EDT) ProBNP 109 <=124 pg/mL [facility] Blood 06/18/2023 8:05 AM EDT 06/18/2023 8:13 AM EDT Narrative Resulting Agency Comment Spec In Lab Lea Jay MD CHEMISTRY ORDERABL ES Performing Organization Address [facility] Co de Phone Number [facility] [place] [address] * (ABNORMAL) Magnesium (06/18/2023 8:05 AM EDT) Magnesium 0.68(L) 0.69 - 1.07 mmol/L [facility] Blood 06/18/2023 8:05 AM EDT 06/18/2023 8:13 AM EDT Narrative Resulting Agency Comment Spec In Lab Lea Jay MD CHEMISTRY ORDERABL ES Performing Organization Address [facility] Phone Number [facility] [place] [address] * Hepatic Function Panel (06/18/2023 8:05 AM EDT) Total Protein 7.0 6.1 - 8.0 g/dL [facility] Albumin 4.6 3.2 - 5.2 g/dL [facility] AST 12 0 - 30 unit/L [facility] ALT 10 0 - 30 unit/L [facility] Alk Phos 74 35 - 105 unit/L [facility] Total Bilirubin 0.4 0.2 - 1.3 mg/dL [facility] Bili, Direct 0.1 0.0 - 0.3 mg/dL [facility] Blood 06/18/2023 8:05 AM EDT 06/18/2023 8:13 AM EDT Narrative Resulting Agency Comment Spec In Lab Lea Jay MD CHEMISTRY ORDERABL ES Performing Organization Address [facility] Co de Phone Number [facility] [place] [address] * (ABNORMAL) Basic Metabolic Panel (non-fasting) (06/18/2023 8:05 AM EDT) Glucose Lvl 106 65 - 199 mg/dL [facility] Comment:Diabetes: >=200 mg/d L plus symptoms BUN 21(H) 8 - 18 mg/dL [facility] Creatinine 1.04 0.70 - 1.20 mg/dL [facility] Sodium 139 135 - 145 mmol/L [facility] Potassium 4.1 3.5 - 5.0 mmol/L [facility] Comment: Please note: ??Patients with WBC >100,000 may have falsely elevated Potassium levels. ??For accurate Potassium quantification in these patients send serum separator tube (gold top) for subsequent determinations. ??Contact the Clinical Chemistry Laboratory if there are any questions. Chloride 99 98 - 107 mmol/L [facility] CO2 29 22 - 31 mmol/L [facility] Anion Gap 11 5 - 15 mmol/L [facility] Calcium 9.7 8.5 - 10.5 mg/dL [facility] Estimated GFR 59(L) >=60 mL/min/1. 73 m?? [facility] Comment: This patient's estimated GFR [...] Lab Lea Jay MD [place] [address] documented in this encounter Visit Diagnoses Diagnosis HFrEF (heart failure with reduced ejection fraction) documented in this encounter Care Teams Svp Digital Sales Relationship Specialty Start Date End Date Oleg Trinidad MD [address] [place] [address] PCP - General Family Medicine 07/31/21 documented as of this encounter
--- OUTSIDE RECORDS SUMMARY | 2023-10-16 01:22 | XMS_ITS | Encounter Summary ---
Author Organization [facility] [place] [address] Care Team Providers Care Commodities Requirements Analyst Name Role Phone Oleg Trinidad MD Primary Care Provider [phone] Encounter Details Date Type Department Care Team (Latest Contact Info) Description 05/19/2023 10:00 AM EST - 05/19/2023 11:59 PM [facility] Hospital Encounter Non-[place] [address] Discharge Disposition: Home Social History Tobacco Use [...] 10:30 AM EDT Appointment Non-[place] [address] Lea Jay MD [facility] [place] [address] 10/17/2023 11:40 AM EDT Office Visit Cardiology at [address] [phone] [place] [address] 11/15/2023 10:00 AM EDT Hospital Encounter Non-[place] [phone] Arrived 11/21/2023 1:40 PM EDT Office Visit Cardiology at [address] [phone] Lea Hodges MD [facility] [place] [address] documented as of this encounter Goals Goal Patient Goal Type Associated Problems Recent Progress Patient-Stated? Author Home Medication Compliance and Understanding Patient Facing Action Plan Yahir Ball, [facility] Note: To live and see improvement in her heart function and ability to have good quality of life documented as of this encounter Procedures Procedure Name Priority Date/Time Associated Diagnosis Comments PRO ICD INTERROGATION REMOTE UP TO 90 DAYS Routine 04/01/2023 11:19 PM EST documented in this encounter Results * Cardiac Device Check - Remote (04/01/2023 11:19 PM EST) Anatomical Region Laterality Modality Other 04/01/2023 11:1 9 PM EST Steven Krishna MD IMPLANTABLE CARDIAC DEVICE documented in this encounter Visit Diagnoses Not on filedocumented in this encounter Care Teams Commodities Requirements Analyst Relationship Specialty Start Date End Date Oleg Trinidad MD [address] [place] [address] PCP - General Family Medicine 07/31/21 documented as of this encounter
--- OUTSIDE RECORDS SUMMARY | 2023-10-16 01:22 | XMS_ITS | Encounter Summary ---
Author Organization [facility] [address] Care Team Providers Care Attenuator Name Role Phone Oleg Trinidad MD Primary Care Provider [phone] Reason for Referral * Diagnostic Test (Routine) - Closed Specialty Diagnoses / Procedures Referred By Contac t Referred To Contact Radiology Diagnoses HFrEF (heart failure with reduced ejection fraction) Procedures NM Pharmacologic Stress CT [place] [address] [place] [address] Referral ID Status Reason Start Date Expiration Date V isits Requested Visits Authorized [id number] Closed Specialty Service Requested 07/01/2023 12/30/2024 1 1 Reason for Visit * Diagnostic Test (Routine) - Closed Specialty Diagnoses / Procedures Referred By Contac t Referred To Contact Radiology Diagnoses HFrEF (heart failure with reduced ejection fraction) Procedures NM Pharmacologic Stress CT [place] [address] [place] [address] Referral ID Status Reason Start Date Expiration Date V isits Requested Visits Authorized [id number] Closed Specialty Service Requested 07/01/2023 12/30/2024 1 1 Encounter Details Date Type Department Care Team (Latest Contact Info) Description 08/20/2023 10:28 AM EDT - 08/20/2023 11:59 PM EDT Hospital Encounter [place] [address] Lea Jay MD [facility] [place] [address] HFrEF (heart failure with reduced ejection fraction) [...] 10:30 AM EDT Appointment Non-[place] [address] Lea Jay MD [facility] [place] [address] 10/17/2023 11:40 AM EDT Office Visit Cardiology at [address] [phone] Lea Jay MD [facility] [place] [address] 11/15/2023 10:00 AM EDT Hospital Encounter Non-[place] [address] Arrived 11/21/2023 1:40 PM EDT Office Visit Cardiology at [address] [phone] Lea Hodges MD [facility] [place] [place] [address] documented as of this encounter Goals Goal Patient Goal Type Associated Problems Recent Progress Patient-Stated? Author [facility] Medication Compliance and Understanding Patient Facing Action Plan Yahir Ball, [facility] Note: To live and see improvement in her heart function and ability to have good quality of life documented as of this encounter Procedures Procedure Name Priority Date/Time Associated Diagnosis Comments NM PHARMACOLOGIC STRESS CT COMPONENT Routine 08/20/2023 1:32 PM EDT HFrEF (heart failure with reduced ejection fraction) documented in this encounter Results * (ABNORMAL) NM Pharmacologic Stress CT Component (08/20/2023 1:32 PM EDT) WORKSTATION ID [id number] RAD Anatomical Region Laterality Modality Nuclear Medicine [...] have questions please contact the health care support representative that requested your imaging first. ? Resulting Agency Comment Unexpected Finding Lea Jay MD IMG NM ORDERABLES documented in this encounter Visit Diagnoses Diagnosis HFrEF (heart failure with reduced ejection fraction) documented in this encounter Care Teams Attenuator Relationship Specialty Start Date End Date Oleg Trinidad MD [address] [place] [address] PCP - General Family Medicine 07/31/21 documented as of this encounter
--- OUTSIDE RECORDS SUMMARY | 2023-10-16 01:22 | XMS_ITS | Encounter Summary ---
Author Organization [facility] [place] [address] Care Team Providers Care Traveling Electrician Name Role Phone Oleg Trinidad MD Primary Care Provider [phone] Encounter Details Date Type Department Care Team (Latest Contact Info) Description 08/20/2023 Travel Social History Tobacco Use Types Packs/Day [...] 10:30 AM EDT Appointment Non-[place]vasive [place] [phone] Lea Jay MD [facility] [place] [address] 10/17/2023 11:40 AM EDT Office Visit Cardiology at [address] [phone] Lea Jay MD [facility] [place] [address] 11/15/2023 10:00 AM EDT Hospital Encounter Non-Invasive [place] [phone] Arrived 11/21/2023 1:40 PM EDT Office Visit Cardiology at [address] [phone] Lea Hodges MD [facility] [place] [address] documented as of this encounter Goals Goal Patient Goal Type Associated Problems Recent Progress Patient-Stated? Author DH Home Medication Compliance and Understanding Patient Facing Action Plan No Yahir Mcallister, [facility] Note: To live and see improvement in her heart function and ability to have good quality of life documented as of this encounter Visit Diagnoses Not on filedocumented in this encounter Care Teams Traveling Electrician Relationship Specialty Start Date End Date Oleg Trinidad MD [address] [place] [address] PCP - General Family Medicine 07/31/21 documented as of this encounter
--- OUTSIDE RECORDS SUMMARY | 2023-10-16 01:22 | XMS_ITS | Encounter Summary ---
Author Organization [facility] [place] [address] Care Team Providers Care Rubber Roller Grinder Operator Name Role Phone Oleg Trinidad MD Primary Care Provider [phone] Encounter Details Date Type Department Care Team (Latest Contact Info) Description 04/24/2023 Travel Social History Tobacco Use Types Packs/Day [...] 10:30 AM EDT Appointment Non-[place]vasive [place] [phone] Lea Jay MD [facility] [place] [address] 10/17/2023 11:40 AM EDT Office Visit Cardiology at [address] [phone] Lea Jay MD [facility] [place] [address] 11/15/2023 10:00 AM EDT Hospital Encounter Non-[place]vasive [place] [phone] Arrived 11/21/2023 1:40 PM EDT Office Visit Cardiology at [address] [phone] Lea Hodges MD [facility] [place] [address] documented as of this encounter Goals Goal Patient Goal Type Associated Problems Recent Progress Patient-Stated? Author DH Home Medication Compliance and Understanding Patient Facing Action Plan No Yahir Mcallister, [facility] Note: To live and see improvement in her heart function and ability to have good quality of life documented as of this encounter Visit Diagnoses Not on filedocumented in this encounter Care Teams Rubber Roller Grinder Operator Relationship Specialty Start Date End Date Oleg Trinidad MD [address] [place] [address] PCP - General Family Medicine 07/31/21 documented as of this encounter
--- OUTSIDE RECORDS SUMMARY | 2023-10-16 01:22 | XMS_ITS | Encounter Summary ---
[place] [address] Care Team Providers Care Top Lift Scourer Name Role Phone Oleg Trinidad MD Primary Care Provider [phone] Encounter Details Date Type Department Care Team (Late st Contact Info) Description 08/28/2023 Telephone Cardiology at [address] [phone] rBien Frye, RN Social History Tobacco Use Types [...] Telephone Encounter - Brien Frye, RN - 08/28/2023 10:47 AM EDT I reached out to Ms. Esparza via telephone today at the request of Dr. Jay. The purpose of the call was to relay Dr. Jay's advice concerning a recently performed stress test. Stacy return verbalizes understanding that her recent stress test suggest that she may benefit fromPCI. However, the final decision to proceed should be made following a conversation about risks andbenefits between her and . Scheduling a visit with Dr. Hodges has already been initiatedby Dr. Jay. No further concerns identified. documented in this encounter Plan of Treatment Upcoming Encounters Date Type Department Care Team (Late st Contact Info) Description 10/17/2023 10:30 AM EDT Appointment Non-[place] [phone] [place] [address] 10/17/2023 11:40 AM EDT Office Visit Cardiology at [address] [phone] [place] [address] 11/15/2023 10:00 AM EDT Hospital Encounter Non-[place]vasive [place] [phone] Arrived 11/21/2023 1:40 PM EDT Office Visit Cardiology at [address] [phone] Lea Hodges MD [facility] [place] [address] documented as of this encounter Goals Goal Patient Goal Type Associated Problems Recent Progress Patient-Stated? Author DH Home Medication Compliance and Understanding Patient Facing Action Plan Yahir Ball, [facility] Note: To live and see improvement in her heart function and ability to have good quality of life documented as of this encounter Visit Diagnoses Not on filedocumented in this encounter Care Teams Top Lift Scourer Relationship Specialty Start Date End Date Oleg Trinidad MD [address] [place] [address] PCP - General Family Medicine 07/31/21 documented as of this encounter
--- OUTSIDE RECORDS SUMMARY | 2023-10-16 01:22 | XMS_ITS | Encounter Summary ---
Author Organization [facility] [place] [address] Care Team Providers Care Paper Twister Tender Name Role Phone Oleg Trinidad MD Primary Care Provider [phone] Reason for Referral * Diagnostic Test (Routine) - Closed Specialty Diagnoses / Procedures Referred By Contac t Referred To Contact Radiology Diagnoses HFrEF (heart failure with reduced ejection fraction) Procedures NM Pharmacologic Stress and Rest Myocardial [place] [address] [place] [address] Referral ID Status Reason Start Date Expiration Date V isits Requested Visits Authorized [id number] Closed Specialty Service Requested 07/01/2023 12/30/2024 1 1 * Diagnostic Test (Routine) - Closed Specialty Diagnoses / Procedures Referred By Contac t Referred To Contact Radiology Diagnoses HFrEF (heart failure with reduced ejection fraction) Procedures NM Pharmacologic Stress [place] [address] [facility] [place] [address] Referral ID Status Reason Start Date Expiration Date V isits Requested Visits Authorized [id number] Closed Specialty Service Requested 07/01/2023 12/30/2024 1 1 Encounter Details Date Type Department Care Team (Late st Contact Info) Description 07/01/2023 Orders Only Cardiology at [address] [phone] [place] [address] HFrEF (heart failure with reduced ejection fraction) [...] 10:30 AM EDT Appointment Non-Invasive [place] [address] [place] [address] 10/17/2023 11:40 AM EDT Office Visit Cardiology at [address] [phone] [place] [address] 11/15/2023 10:00 AM EDT Hospital Encounter Non-Invasive [place] [phone] Arrived 11/21/2023 1:40 PM EDT Office Visit Cardiology at [address] [phone] Lea Hodges MD [facility] [place] [address] documented as of this encounter Goals Goal Patient Goal Type Associated Problems Recent Progress Patient-Stated? Author Home Medication Compliance and Understanding Patient Facing Action Plan No Yahir Mcallister, [facility] Note: To live and see improvement in her heart function and ability to have good quality of life documented as of this encounter Results * (ABNORMAL) NM Pharmacologic Stress CT Component (08/20/2023 1:32 PM EDT) [employer] Signature WORKSTATION ID [id number] RAD Anatomical Region Laterality Modality Nuclear Medicine [...] who have questions please contact the health manager long term care that requested your imaging first. ? Electronically signed by: Alvarado Bethea MD, [facility] ([phone]), at 08/20/2023 5:11 PM Resulting Agency Comment Unexpected Finding Lea Jay MD IMG NM ORDERABLES * Nuclear Pharmacologic Stress Cardiology (08/20/2023 12:07 PM EDT) Anatomical Region Laterality Modality Other Lea Jay MD CARDIAC SERVICES O RDERABLES * NM Pharmacologic Stress and Rest Myocardial Perfusion (08/20/2023 12:06 PM EDT) WORKSTATION ID [id number] [facility] Anatomical Region Laterality Modality Nuclear Medicine Impressions [...] who have questions please contact the health manager long term care that requested your imaging first. ? [...] patients who have questions please contactthe health manager long term care that requested your imaging first. Lea Jay MD IM NM ORDERABLES documented in this encounter Visit Diagnoses Diagnosis HFrEF (heart failure with reduced ejection fraction) HFrEF (heart failure with reduced ejection fraction) HFrEF (heart failure with reduced ejection fraction) documented in this encounter Care Teams Paper Twister Tender Relationship Specialty Start Date End Date Oleg Trinidad MD [address] [place] [address] PCP - General Family Medicine 07/31/21 documented as of this encounter
--- OUTSIDE RECORDS SUMMARY | 2023-10-16 01:23 | XMS_ITS | Encounter Summary ---
Author [facility] [place] [address] Care Team Providers Care Wet Process Miller Name Role Phone Oleg Trinidad MD Primary Care Provider [phone] Encounter Details Date Type Department Care Team (Late st Contact Info) Description 02/21/2022 10:00 AM EST Office Visit Cardiology at [address] [phone] Lea Jay MD [facility] [place] [address] Chronic systolic (congestive) heart failure; Hyperglycemia Social History Tobacco Use Types Packs/Day Years [...] Sign Reading Time Taken Comments Blood Pressure 124/61 02/21/2022 9:51 AM EST Pulse 69 02/21/2022 9:51 AM EST Temperature - - Respiratory Rate - - Oxygen Saturation 97% 02/21/2022 9:51 AM EST Inhaled Oxygen Concentration - - Weight 69.2 kg (152 lb 8 oz) 02/21/2022 9:51 AM EST Height 162.6 cm (5' 4) 02/21/2022 9:51 AM EST Body Mass Index 26.18 02/21/2022 9:51 AM EST documented in this encounter Patient Instructions * Patient Instructions* Lae Jay MD - 02/21/2022 10:00 AM EST Great to meet you today. We will not change any medications at this time. We will get an echo in a few months. You can get this at [facility]. We will get the results. We will see you as a telehealth in a few months andthen see you back in person in 6 months. Please check your blood pressures and heart rates in the meantime. I am very comfortable with you using tramadol and imodium as needed for pain and diarrhea. documented in this encounter Progress Notes * Lea Jay MD - 02/21/2022 10:00 AM EST [facility] Note Name: Stacy Esparza Date: 02/21/2022 History of Present Illness Stacy Esparza is a 66 y.o. female with a past medical history [...] on home O2; emphysema Internal Events Since the last visit with Alisa Reddy 07/2021: ??? Had ICD placed; needs monitor ??? Doing very well from cardiac perspective ??? No longer on diuretic ??? Tolerating meds ??? No orhtopnea, PND, palpitations, lightheadedness/dizziness ??? Complains of intermittent diarrhea ? Related to water. Using immodium ??? Struggles with back pain; had imaging 30 years ago with bulging disk. No red flag symptoms. Using tramadol sparinglign Review of Systems All other 12 point review of systems negative except as noted above. Past Medical History Patient Active Problem List Diagnosis ??? ICD (implantable cardioverter-defibrillator) in place ??? Cardiomyopathy ??? CAD (coronary artery disease) ??? Other primary cardiomyopathies ??? Alcohol abuse, unspecified ??? Hyperpotassemia ??? Cardiogenic shock ??? Unspecified hypothyroidism Full Medication List Outpatient Medications Marked as Taking for the 02/21/22 encounter (Office Visit) with Lea Jay MD Medication Sig Dispense Refill ??? sacubitriL-valsartan (Entresto) 24-26 mg Tablet tablet Take 1 tablet by mouth 2 times daily. 180 tablet 3 ??? metFORMIN (Glucophage) 1,000 mg Tablet Take 1 tablet by mouth 2 times daily (with meals). 60 tablet 12 ??? traMADoL (Ultram) 50 mg Tablet Take 50 mg by mouth every 12 hours as needed for Pain (taking only 1 tab every morning). ??? empagliflozin (Jardiance) 10 mg Tablet Take 1 tablet by mouth daily. 30 tablet 11 ??? naproxen sodium (ALEVE) 220 mg Capsule Take by mouth. ??? colchicine (Colcrys) 0.6 mg Tablet Take 0.6 mg by mouth daily as needed. ??? acetaminophen (Tylenol) 325 mg Tablet 1 tablet orally as needed ??? EPINEPHrine 0.3 mg/0.3 mL Auto-Injector Inject 0.3 mg into the muscle. ??? atorvastatin (Lipitor) 80 mg Tablet Take 1 tablet by mouth every evening. 90 tablet 3 ??? famotidine (Pepcid) 20 mg Tablet Take 1 tablet by mouth 2 times daily. 30 tablet 12 ??? levothyroxine (Synthroid) 50 mcg Tablet Take 1 tablet by mouth daily. 90 tablet 3 ??? magnesium oxide (Mag-Ox) 400 mg (241.3 mg magnesium) Tablet Take 1 tablet by mouth 2 times daily. 30 tablet 12 ??? metoprolol succinate XL (Toprol-XL) 100 mg Tablet Sustained Release 24 hr Take 1 tablet by mouth daily. 30 tablet 12 ??? spironolactone (Aldactone) 25 mg Tablet Take 0.5 tablets by mouth daily. 90 tablet 3 ??? allopurinoL (Zyloprim) 100 mg Tablet Take 100 mg by mouth as needed (for Gout attacks). ??? ergocalciferoL, vitamin D2, (vitamin D2) 50,000 unit Capsule Take 50,000 Units by mouth once a week. ??? nitroGLYcerin (NITROSTAT) 0.[address] 1 tablet under the tongue daily as needed for Chest pain. 90 tablet 3 ??? aspirin 81 mg EC tablet Take 81 mg by mouth daily. ??? multivitamin (THERAGRAN) tablet Take 1 tablet by mouth daily. Allergies Allergies Allergen Reactions ??? Lisinopril Other (See Comments) cough Other reaction(s): Cough ??? Venom-Honey Bee Social & Family History TOB: Social History Tobacco Use Smoking Status Some Days ??? Packs/day: 0.25 ??? Years: 50.00 ??? Pack years: 12.50 ??? Types: Cigarettes Smokeless Tobacco Never Tobacco Comments 0.25-0.5 PPD ETOH: Social History Substance and Sexual Activity Alcohol Use No Comment: none in last 3 months 02/21/2022 Illicits: Social History Substance and Sexual Activity Drug Use No FHx: No family history on file. Physical Exam Vitals: 02/21/22 0951 BP: 124/61 Pulse: 69 SpO2: 97% Weight: 69.2 kg (152 lb 8 oz) Height: 162.6 cm (5' 4) General: NAD Neck: JVP not elevated Cardiac: Regular without significant murmurs rubs or gallops Lungs: CTAB Abdomen: Soft NT/ND Extremities: WWP w/ no significant lower extremity edema Relevant Labs Last wbc, hgb, hct plt No results for input(s): WBC, HGB, HCT in the last 72 hours. Invalid input(s): PLT Last 3 Lytes Recent Labs 02/21/22 1113 12/12/21 0720 07/31/21 0811 NA 135 137 137 K 5.4* 4.9 5.0 CL 101 101 99 CO2 24 25 26 BUN 20* 14 16 CREATININE 1.08 0.90 1.04 Last 3 ProBNP, Trop, CK Recent Labs 02/21/22 1113 PROBNP 431* Relevant CardiacStudies TTE 08/13: Left ventricle is severely dilated. Wall thickness is normal. Left ventricular systolic function is severely reduced. The left ventricular ejection fraction is 24% by Guzman's biplane. The left ventricular ejection fraction is 24% by 3D volumetric assessment. Global longitudinal strain is measured at -8.2 %. (GE). Severe global hypokinesis. TTE 03/14: 1. The [...] LAD 50% mid lesion, mild LCX disease, LENS AND FRAMES PRESCRIPTION CLERK of the RCA, LVEDP 45 Assessment/Plan: In summary, Stacy Esparza is doing well from a symptom standpoint. She is NYHA class II with no diuretic requirement. She is predominantly limited by low back pain. #HFrEF: d/t ?viral c/b ischemia, RCA LENS AND FRAMES PRESCRIPTION CLERK on cath. EF 26%, NYHA 2-3. S/P ICD - Beta marita: Mertop succ 100mg QD - RASi: Entresto 24/26mg BID (will not uptitrate today as BP at home has typically been lower than it is In clinic; but consider uptitrating at next visit. She will check Bps at home in the interim) - MRA: Samir 12.5mg PO QD based on K 5.4, will DC this med. - SGLT-2 Empa 10mg QD - Diuretic: does not require (previoulsy on furosemide; torsemide) - received remote monitor today - repeat echo ordered to be done prior to next visit #CAD: LENS AND FRAMES PRESCRIPTION CLERK of RCA on cath from 02/12, 50% mLAD lesion, no angina - ASA 81mg QD - Atrova 80mg QD #HL: LDL 30 in 08/13 on 80 atorva - Statin: Atorvab 40mg PO QD #DM: HbA1c: 5.6 --on jardiance and metformin documented in this encounter Plan of Treatment Upcoming Encounters Date Type Department Care Team (Late st Contact Info) Description 10/17/2023 10:30 AM EDT Appointment Non-[place] [phone] [place] [address] 10/17/2023 11:40 AM EDT Office Visit Cardiology at [address] [phone] [place] [address] 11/15/2023 10:00 AM EDT Hospital Encounter Non-[place] [phone] Arrived 11/21/2023 1:40 PM EDT Office Visit Cardiology at [address] [phone] Lea Hodges MD [facility] [place] [address] documented as of this encounter Goals Goal Patient Goal Type Associated Problems Recent Progress Patient-Stated? Author DH [place] Medication Compliance and Understanding Patient Facing Action Plan Yahir Ball, [facility] Note: To live and see improvement in her heart function and ability to have good quality of life documented as of this encounter Results * Hemoglobin A1c (02/21/2022 11:13 AM EST) Hemoglobin A1C 5.6 4.3 - 5.6 % [facility] Comment: Reference Range: 4.3 - 5.6% 5.7 - 6.4% - Increased Risk of Developing Diabetes Mellitus >= 6.5% - Consistent with diagnosis of Diabetes Mellitus In the absence of hyperglycemia (i.e. plasma glucose > 200 mg/dL) or classic symptoms of hyperglycemia a repeat measurement of HbA1c should be performed on a separate sample to confirm the diagnosis. Diagnosis and Classification of Diabetes Mellitus, Diabetes Care 2013; 36: Suppl. 1, S67-85 Est Avg Gluc 113 mg/dL [facility] Comment: eAG equivalents for HbA1c percentages: HbA1c(%) ?eAG(mg/dL) 6.0 ?126 6.5 ?140 7.0 ?154 7.5 ?169 8.0 ?183 8.5 ?197 9.0 ?212 9.5 ?226 10.0 ? 240 Limitations: The eAG calculation has not been validated on women, individuals below 18 years old and above 70 years old, and individuals with hemoglobinopathies. Additional resources are available on the ADA website. Isaiah RHODES, Skye J, Mauro R, et al. ??Translating the A1C assay into estimated average glucose values. ??Diabetes Care 2008:31(8):3366-4027. Blood 02/21/2022 11:1 3 AM EST 02/21/2022 11:20 AM EST Narrative Resulting Agency Comment Spec In Lab Lea Jay MD CHEMISTRY ORDERABL ES [facility] [place] [address] * (ABNORMAL) pro-Brain Natriuretic Peptide (02/21/2022 11:13 AM EST) ProBNP 431(H) <=124 pg/mL [facility] Blood 02/21/2022 11:1 3 AM EST 02/21/2022 11:20 AM EST Narrative Resulting Agency Comment Spec In Lab Lea Jay MD CHEMISTRY ORDERABL ES Performing Organization Address [facility] Co de Phone Number [facility] [place] [address] * Magnesium (02/21/2022 11:13 AM EST) Magnesium 0.92 0.69 - 1.07 mmol/L [facility] Blood 02/21/2022 11:1 3 AM EST 02/21/2022 11:20 AM EST Narrative Resulting Agency Comment Spec In Lab Lea Jay MD CHEMISTRY ORDERABL ES Performing Organization Address [facility] de Phone Number [facility] [place] [place] [address] * (ABNORMAL) Basic Metabolic Panel (non-fasting) (02/21/2022 11:13 AM EST) Glucose Lvl 90 65 - 199 mg/dL [facility] Comment:Diabetes: >=200 mg/d L plus symptoms BUN 20(H) 8 - 18 mg/dL [facility] Creatinine 1.08 0.70 - 1.20 mg/dL [facility] Sodium 135 135 - 145 mmol/L [facility] Potassium 5.4(H) 3.5 - 5.0 mmol/L [facility] Comment: Please note: ??Patients with WBC >100,000 may have falsely elevated Potassium levels. ??For accurate Potassium quantification in these patients send serum separator tube (gold top) for subsequent determinations. ??Contact the Clinical Chemistry Laboratory if there are any questions. Chloride 101 98 - 107 mmol/L [facility] CO2 24 22 - 31 mmol/L [facility] Anion Gap 10 5 - 15 mmol/L [facility] Calcium 9.3 8.5 - 10.5 mg/dL [facility] Estimated GFR 56(L) >=60 mL/min/1. 73 m?? [facility] Comment: This patient's estimated GFR [...] and symptoms in addition to eGFR. Blood 02/21/2022 11:1 3 AM EST 02/21/2022 11:20 AM EST Narrative Resulting Agency Comment Spec In Lab Lea Jay MD CHEMISTRY ORDERABL ES [facility] [place] [address] documented in this encounter Visit Diagnoses Diagnosis Chronic systolic (congestive) heart failure Hyperglycemia Other abnormal glucose documented in this encounter Care Teams Wet Process Miller Relationship Specialty Start Date End Date Oleg Trinidad MD [address] [place] [address] PCP - General Family Medicine 07/31/21 documented as of this encounter
--- OUTSIDE RECORDS SUMMARY | 2023-10-16 01:23 | XMS_ITS | Encounter Summary ---
[place] [address] Care Team Providers Care Crop Nutrition Scientist Name Role Phone Oleg Trinidad MD Primary Care Provider [phone] Encounter Details Date Type Department Care Team (Late st Contact Info) Description 03/30/2022 Notes [place] [phone] Jeromy Ellsworth Social History Tobacco Use Types Packs/Day Years [...] on file documented as of this encounter Progress Notes * Jeromy Ellsworth - 03/30/2022 11:47 AM EST I faxed the application for assistance with Entresto to [employer]. I will follow through once the flower pot press operator program makes a decision. This is for the 2022 enrollment year. documented in this encounter Plan of Treatment Upcoming Encounters Date Type Department Care Team (Late st Contact Info) Description 10/17/2023 10:30 AM EDT Appointment Non-[place] [phone] [place] [address] 10/17/2023 11:40 AM EDT Office Visit Cardiology at [address] [phone] [place] [address] 11/15/2023 10:00 AM EDT Hospital Encounter Non-[place]vasive [place] [phone] Arrived 11/21/2023 1:40 PM EDT Office Visit Cardiology at [address] [phone] Lea Hodges MD [facility] [place] [address] documented as of this encounter Goals Goal Patient Goal Type Associated Problems Recent Progress Patient-Stated? Author [facility] Medication Compliance and Understanding Patient Facing Action Plan No Yahir Mcallister, [facility] Note: To live and see improvement in her heart function and ability to have good quality of life documented as of this encounter Visit Diagnoses Not on filedocumented in this encounter Care Teams Crop Nutrition Scientist Relationship Specialty Start Date End Date Oleg Trinidad MD [address] [place] [address] PCP - General Family Medicine 07/31/21 documented as of this encounter
--- OUTSIDE RECORDS SUMMARY | 2023-10-16 01:23 | XMS_ITS | Encounter Summary ---
Author Organization [facility] [place] [address] Care Team Providers Care Fisher Diver Net Name Role Phone Oleg Trinidad MD Primary Care Provider [phone] Encounter Details Date Type Department Care Team (Latest Contact Info) Description 08/22/2022 10:00 AM EDT - 08/22/2022 11:59 PM EDT Hospital Encounter Non[place] [address] Discharge Disposition: Home Social History Tobacco Use [...] Sig Dispensed Refills Start Date End Date sacubitriL-valsartan (Entresto) 24-26 mg Tablet tabletIndications:Chroni c [...] 10:30 AM EDT Appointment Non-[place] [address] Lea Jay MD [facility] CARDIOLOGY [place], [place] [address] 10/17/2023 11:40 AM EDT Office Visit Cardiology at [address] [phone] Lea Jay MD [facility] [address] 11/15/2023 10:00 AM EDT Hospital Encounter Non-[place] [address] Arrived 11/21/2023 1:40 PM EDT Office Visit Cardiology at [address] [phone] Lea Hodges MD [facility] [place] [address] documented as of this encounter Goals Goal Patient Goal Type Associated Problems Recent Progress Patient-Stated? Author DH Home Medication Compliance and Understanding Patient Facing Action Plan No Yahir Mcallister, [facility] Note: To live and see improvement in her heart function and ability to have good quality of life documented as of this encounter Procedures Procedure Name Priority Date/Time Associated Diagnosis Comments PRO ICD INTERROGATION REMOTE UP TO 90 DAYS Routine 06/26/2022 2:44 AM EDT documented in this encounter Results * Cardiac Device Check - Remote (06/26/2022 2:44 AM EDT) Anatomical Region Laterality Modality Other 06/26/2022 2:44 AM EDT Ashlee Moon MD IMPLANTABLE CARDIAC DEVICE documented in this encounter Visit Diagnoses Not on filedocumented in this encounter Care Teams Fisher Diver Net Relationship Specialty Start Date End Date Oleg Trinidad MD [address] [place] [address] PCP - General Family Medicine 07/31/21 documented as of this encounter
--- OUTSIDE RECORDS SUMMARY | 2023-10-16 01:23 | XMS_ITS | Encounter Summary ---
[place] [address] Care Team Providers Care Quality Assurance Monitor Name Role Phone Oleg Trinidad MD Primary Care Provider [phone] Reason for Referral * Consultation (Routine) - Authorized Specialty Diagnoses / Procedures Referred By Shyam agarwal Referred To Contact Vascular Surgery Diagnoses Chronic total occlusion of artery of the extremities ROUTINE, MD/ЕКАТЕРИНА, NO NEW STUDIES RT SUBCLAVIAN ARTERY IS OCCLUDED BASED ON DOPPLER US Oleg Trinidad MD [address] [place] [address] [facility] Vascular Surg [address] [place] [address] Referral ID Status Reason Start Date Expiration Date Visits Requested Visits Authorized [id number] Authorized Consult, Test & Treat PCP Updated and/or Approved 3 02/21/2024 6 6 Encounter Details Date Type Department Care Team (Latest Contact Info) Description 02/26/2023 Transcribe Orders eD Incoming Referrals [phone] Oleg Trinidad MD [address], [place] [id number] Chronic total occlusion of artery of the extremities Social History Tobacco Use Types Packs/Day Years [...] 10:30 AM EDT Appointment Non[place] [phone] [place] [address] 10/17/2023 11:40 AM EDT Office Visit Cardiology at [address] [phone] [place] [address] 11/15/2023 10:00 AM EDT Hospital Encounter Non[place] [phone] Arrived 11/21/2023 1:40 PM EDT Office Visit Cardiology at [address] [phone] Lea Hodges MD [facility] [place] [address] Scheduled Referrals Name Type Priority Associated Diagnoses Orde r Schedule Referral to Vascular Surgery Outpatient Referral Routine Chronic total occlusion of artery of the extremities Ordered: 02/26/2023 documented as of this encounter Goals Goal Patient Goal Type Associated Problems Recent Progress Patient-Stated? Author DH Home Medication Compliance and Understanding Patient Facing Action Plan Yahir Ball, [facility] Note: To live and see improvement in her heart function and ability to have good quality of life documented as of this encounter Visit Diagnoses Diagnosis Chronic total occlusion of artery of the extremities documented in this encounter Care Teams Quality Assurance Monitor Relationship Specialty Start Date End Date Oleg Trinidad MD [address] [place] [address] PCP - General Family Medicine 07/31/21 documented as of this encounter
--- OUTSIDE RECORDS SUMMARY | 2023-10-16 01:23 | XMS_ITS | Encounter Summary ---
Author Organization [facility] [place] [address] Care Team Providers Care Antique Furniture Restorer Name Role Phone Oleg Trinidad MD Primary Care Provider [phone] Encounter Details Date Type Department Care Team (Latest Contact Info) Description 03/22/2023 Travel Social History Tobacco Use Types Packs/Day [...] 10:30 AM EDT Appointment Non-Invasive [place] [phone] [place] [address] 10/17/2023 11:40 AM EDT Office Visit Cardiology at [address] [phone] Lea Jay MD [facility] [place] [address] 11/15/2023 10:00 AM EDT Hospital Encounter Non-Invasive [place] [phone] Arrived 11/21/2023 1:40 PM EDT Office Visit Cardiology at [address] [phone] Lea Hodges MD [facility] [place] [place] [address] documented as of this encounter Goals Goal Patient Goal Type Associated Problems Recent Progress Patient-Stated? Author DH Home Medication Compliance and Understanding Patient Facing Action Plan No Yahir Mcallister, [facility] Note: To live and see improvement in her heart function and ability to have good quality of life documented as of this encounter Visit Diagnoses Not on filedocumented in this encounter Care Teams Antique Furniture Restorer Relationship Specialty Start Date End Date Oleg Trinidad MD [address] [place] [address] PCP - General Family Medicine 07/31/21 documented as of this encounter
--- OUTSIDE RECORDS SUMMARY | 2023-10-16 01:23 | XMS_ITS | Encounter Summary ---
Author Organization [facility] [place] [address] Care Team Providers Care Collet Gluer Name Role Phone Oleg Trinidad MD Primary Care Provider [phone] Encounter Details Date Type Department Care Team (Late st Contact Info) Description 07/03/2022 Orders Only Cardiology at [address] [phone] [place] [address] HFrEF (heart failure with reduced ejection fraction) [...] 10:30 AM EDT Appointment Non-[place]vasive [place] [phone] [place] [address] 10/17/2023 11:40 AM EDT Office Visit Cardiology at [address] [phone] [place] [address] 11/15/2023 10:00 AM EDT Hospital Encounter Non-[place]vasive [place] [phone] Arrived 11/21/2023 1:40 PM EDT Office Visit Cardiology at [address] [phone] Lea Hodges MD [facility] [place] [address] documented as of this encounter Goals Goal Patient Goal Type Associated Problems Recent Progress Patient-Stated? Author DH Home Medication Compliance and Understanding Patient Facing Action Plan Yahir Ball, [facility] Note: To live and see improvement in her heart function and ability to have good quality of life documented as of this encounter Visit Diagnoses Diagnosis HFrEF (heart failure with reduced ejection fraction) documented in this encounter Care Teams Collet Gluer Relationship Specialty Start Date End Date Oleg Trinidad MD [address] [place] [address] PCP - General Family Medicine 07/31/21 documented as of this encounter"
--- OUTSIDE RECORDS SUMMARY | 2023-10-16 01:23 | XMS_ITS | Encounter Summary ---
Author Organization [facility] [place] [address] Care Team Providers Care Gliding Pilot Instructor Name Role Phone Oleg Trinidad MD Primary Care Provider [phone] Encounter Details Date Type Department Care Team (Latest Contact Info) Description 04/30/2022 Travel Social History Tobacco Use Types Packs/Day [...] 10:30 AM EDT Appointment Non-[place] [phone] Lea Jay MD [facility] [place] [address] 10/17/2023 11:40 AM EDT Office Visit Cardiology at [address] [phone] Lea Jay MD [facility] [place] [address] 11/15/2023 10:00 AM EDT Hospital Encounter Non-[place]vasive [place] [phone] Arrived 11/21/2023 1:40 PM EDT Office Visit Cardiology at [address] [phone] Lea Hodges MD [facility] [place] [address] documented as of this encounter Goals Goal [...] on filedocumented in this encounter Care Teams Gliding Pilot Instructor Relationship Specialty Start Date End Date Oleg Trinidad MD [address] [place] [address] PCP - General Family Medicine 07/31/21 documented as of this encounter
--- OUTSIDE RECORDS SUMMARY | 2023-10-16 01:23 | XMS_ITS | Encounter Summary ---
Author Organization [facility] [place] [address] Care Team Providers Care Cottage Master Name Role Phone Oleg Trinidad MD Primary Care Provider [phone] Reason for Referral * Diagnostic Test (Routine) - Closed Specialty Diagnoses / Procedures Referred By Shyam t Referred To Contact Cardiology Diagnoses Cardiomyopathy, unspecified type ICD (implantable cardioverter-defibrillator) in place Procedures Ziopatch 48 Hrs-15 Days Ziopatch 48 Hrs-15 Days Julissa Lomas APRN [facility] [address] [facility] [place] [address] Referral ID Status Reason Start Date Expiration Date V isits Requested Visits Authorized [id number] Closed Specialty Service Requested 04/24/2023 04/23/2024 1 1 Encounter Details Date Type Department Care Team (Late st Contact Info) Description 04/24/2023 9:00 AM EST Office Visit Cardiology at [address] [phone] Julissa Lomas APRN [facility] [place] [address] Cardiomyopathy, unspecified type; ICD (implantable cardioverter-defibril lator) in place Social History Tobacco Use Types Packs/Day Years [...] Sign Reading Time Taken Comments Blood Pressure 127/70 04/24/2023 9:15 AM EST Pulse 54 04/24/2023 9:15 AM EST Temperature - - Respiratory Rate - - Oxygen Saturation 91% 04/24/2023 9:15 AM EST Inhaled Oxygen Concentration - - Weight 71.3 kg (157 lb 1.6 oz) 04/24/2023 9:15 A M EST Height 162.6 cm (5' 4) 04/24/2023 9:15 AM EST Body Mass Index 26.97 04/24/2023 9:15 AM EST documented in this encounter Patient Instructions * Patient Instructions* Julissa Lomas APRN - 04/24/2023 9:00 AM EST We met today to look at your ICD and discuss SVT (supraventricular tachycardia) episodes noted on your ICD. It is very difficult to evaluate the episodes using the ICD and I recommend a heart rhythm monitor, a Ziopatch. Hopefully, this can be applied today. We will follow up in ~ 4-6 weeks after to discuss these results. I will also send a message to HF team to remind them of follow up. Cut down on caffeine, decrease smoking. Follow up with your PCP regarding sleep medicine evaluation for sleep apnea/snoring. * Attachments The following attachments cannot be sent through Care Everywhere. * Supraventricular Tachycardia (Zambian) * Sleep Apnea: What Is It?: Video (Zambian) documented in this encounter Progress Notes * Julissa Lomas APRN - 04/24/2023 9:00 AM EST Images from the original note were not included. Cardiac Electrophysiology Clinic Visit Subjective: Patient ID: Stacy Esparza is a 67 y.o. female. CC: Follow up of SVT and device check HF/pulmonary HTN clinic: Lea Jay MD (last visit 08/28/22 with a plan to return in 3 months) PCP: Oleg Trinidad MD HPI: 67 y.o. female with past medical history of cardiomyopathy of mixed etiology s/p Medtronic single lead ICD 12/12/2021 for primary prevention who presents in EP clinic. She is here with daughter, Chelsea. The ICD has never fired. On remote download 04/01/23 (period 01/01/23-04/01/23) Supraventricular Arrhythmias: 12 EGMs suggest non-sustained and sustained SVT, longest available at least 2 minutes and 48 seconds in duration, with no clear onset /termination of event. Average rates 150s bpm LEAD INJECTION MOLD TECHNICIAN <0.1% Ventricular Events: 5~EGMs suggest nsSVT with PVCs, longest available 4 seconds in duration.~EGM suggests nsVT, 2.5 seconds in duration. She is feeling well. Denies lightheadedness, dizziness, shortness of breath at rest. Gets short of breath with walking in from car. No chest discomfort with walking. Denies palpitations or fluttering. Has had a sharp and brief episodes of chest pain in which she points to her chest at approximately the fourth intercostal space left sternal border in the past week this has occurred 4-5 times. Pain is localized, does not travel to neck, arms, jaw, or back. She was carrying heavy groceries last week. Patient Active Problem List Diagnosis ICD (implantable cardioverter-defibrillator) in place Cardiomyopathy CAD (coronary artery disease) Other primary cardiomyopathies Alcohol abuse, unspecified Hyperpotassemia Cardiogenic shock Unspecified hypothyroidism ROS: Constitutional: - fatigue, - fever, - chills, - insomnia Respiratory: - shortness of breath, - cough, - apnea, - wheezing Cardiovascular: + chest pain, - palpitations, - unusual rates Gastrointestinal: - nausea, - vomiting, - abdominal pain, - diarrhea Neurological: - lightheadedness, - dizziness, - syncope, - weakness Endocrine: - hot spells, -cold spells. Psychiatric: - anxious Social History: Tobacco: yes, currently 1/4 pack per day Cut down a lot over the years Alcohol: none Caffeine: yes- 3 cups coffee per day. Water intake: ~ 8-10 glasses per day Sleep: great last night, has been told she snores, but has never been evaluated for sleep apnea. Exercise: not much walks to and from car and hallways, gets out of breath quickly Medications: Current Outpatient Medications Medication Sig Note Dispense Refill furosemide (Lasix) 40 mg tablet Take 1 tablet by mouth daily. 04/24/2023: Doesn't take daily due to frequent urination 60 tablet 11 sacubitriL-valsartan (Entresto) 24-26 mg Tablet tablet Take 1 tablet by mouth 2 times daily. 180 tablet 3 metFORMIN (Glucophage) 1,000 mg Tablet Take 1 tablet by mouth 2 times daily (with meals). 60 traMADoL (Ultram) 50 mg Tablet Take 50 mg by mouth every 12 hours as needed for Pain (taking only 1tab every morning). empagliflozin (Jardiance) 10 mg Tablet Take 1 tablet by mouth daily. 30 tablet 11 naproxen sodium (ALEVE) 220 mg Capsule Take by mouth. 03/27/2021: As needed. colchicine (Colcrys) 0.6 mg Tablet Take 0.6 mg by mouth daily as needed. acetaminophen (Tylenol) 325 mg Tablet 1 tablet orally as needed EPINEPHrine 0.3 mg/0.3 mL Auto-Injector Inject 0.3 mg into the muscle. atorvastatin (Lipitor) 80 mg Tablet Take 1 tablet by mouth every evening. 90 tablet 3 famotidine (Pepcid) 20 mg Tablet Take 1 tablet by mouth 2 times daily. 30 tablet 12 levothyroxine (Synthroid) 50 mcg Tablet Take 1 tablet by mouth daily. 90 tablet 3 magnesium oxide (Mag-Ox) 400 mg (241.3 mg magnesium) Tablet Take 1 tablet by mouth 2 times daily. 30 tablet 12 metoprolol succinate XL (Toprol-XL) 100 mg Tablet Sustained Release 24 hr Take 1 tablet by mouth daily. 30 tablet 12 allopurinoL (Zyloprim) 100 mg Tablet Take 100 mg by mouth as needed (for Gout attacks). ergocalciferoL, vitamin D2, (vitamin D2) 50,000 unit Capsule Take 50,000 Units by mouth once a week. 02/21/2021: Takes every saturday nitroGLYcerin (NITROSTAT) 0.[address] 1 tablet under the tongue daily as needed for Chest pain. 90 tablet 3 aspirin 81 mg EC tablet Take 81 mg by mouth daily. multivitamin (THERAGRAN) tablet Take 1 tablet by mouth daily. Objective: Vitals: Vitals: 04/24/23 0915 BP: 127/70 Pulse: 54 SpO2: 91% Weight: 71.3 kg (157 lb 1.6 oz) Height: 162.6 cm (5' 4) Physical Exam: General- No acute distress, sitting comfortably in exam room chair HEENT- Head atraumatic, normocephalic Skin- Pocket incision is well healed. No evidence of erosion or need of revision. Noted lead overlying the device, under the skin. Neck- No JVD noted Cardiovascular- S1/S2 regular rate and rhythm. No murmur, rub or gallop Lungs- Clear to auscultation bilaterally Extremities- Pulses equal bilaterally. No edema noted Neuro- A&Ox3 ECG in office today shows sinus rhythm with 1 PAC, 72 bpm, [place] 156 ms, QRS 100 ms, QT 420 ms, QTc 459 ms. Echocardiogram: 07/31/2021 Interpretation Summary Compared to the prior study 02/22/21 the left ventricle remains severely diliated with severely reduced global function and elevated filling pressures. LVEF 24% The right ventricle function has improved to low-normal. There is less mitral regurgitation. LA mild dilation See report for detailed findings. Device Interrogation: Data Generator: Center'd Hayden XT VR [id number], serial [id number], implanted 12/12/21 - left-sided implant 12/12/2021 RV Lead: anywayanydaytronic [id number], implanted 12/12/2021 Alerts none Diagnostics Pacing Mode: VVI 40 bpm Presenting EGMs: VS Underlying Rhythm: sinus rhythm occ PAC Ventricular Sensin% Ventricular Pacing: <0.1% Thoracic Impedance: stable trends, Optivol fluid index below threshold HR Histogram: Battery and Leads Voltage: 3.02 V Status: ~13 years Magnet Rate: ---bpm Charge Time: 3.5 sec Impedances (ohms) Sensing (mV) Thresholds HV RA RV LV RA RV LV RA RV LV 78 --- 627 --- --- >20 --- --- 0.75 V @ 0.4 ms --- Comments: - Pocket incision is well healed without signs or symptoms of infection - Device is functioning appropriately - Programming changes Iterative changes made for testing purposes only - Follow up: remotely every 3 months, in clinic every 6 months. Assessment and Plan: 67 y.o. with medical history significant for cardiomyopathy of mixed etiology s/p Medtronic single lead ICD 12/12/2021 for primary prevention who presents in EP clinic. SVT and NSVT noted on ICD device. In a single lead ICD, it is difficult to evaluate arrhythmias from atrium, despite reported atrial arrhythmias on device. Recommend Zio patch to evaluate atrial arrhythmias. ICD function is normal, with normal lead parameters. Discussed ways atrial arrhythmias can be impacted, like cigarette smoking, caffeine, stress, undiagnosed sleep apnea. Discussed recommendation to be evaluated for sleep apnea with sleep medicine. She prefers to follow-up with her PCP to have this done closer to home. Plan: 1. Ziopatch 2. Follow up in 4-6 weeks 3. Recommend follow up for sleep apnea, patient prefers with PCP to be done closer to home. Julissa Lomas APRN 04/24/23 Patient Instructions We met today to look at your ICD and discuss SVT (supraventricular tachycardia) episodes noted on your ICD. It is very difficult to evaluate the episodes using the ICD and I recommend a heart rhythm monitor, a Ziopatch. Hopefully, this can be applied today. We will follow up in ~ 4-6 weeks after to discuss these results. I will also send a message to HF team to remind them of follow up. Cut down on caffeine, decrease smoking. Follow up with your PCP regarding sleep medicine evaluation for sleep apnea/snoring. documented in this encounter Plan of Treatment Upcoming Encounters Date Type Department Care Team (Late st Contact Info) Description 10/17/2023 10:30 AM EDT Appointment Non-Invasive [place] [address] Lea Jay MD [facility] [place] [address] 10/17/2023 11:40 AM EDT Office Visit Cardiology at [address] [phone] Lea Jay MD [facility] [place] [address] 11/15/2023 10:00 AM EDT Hospital Encounter Non-Invasive [place] [address] Arrived 11/21/2023 1:40 PM EDT Office Visit Cardiology at [address] [phone] Lea Hodges MD [facility] [address] documented as of this encounter Goals Goal Patient Goal Type Associated Problems Recent Progress Patient-Stated? Author DH Home Medication Compliance and Understanding Patient Facing Action Plan Yahir Ball, [facility] Note: To live and see improvement in her heart function and ability to have good quality of life documented as of this encounter Procedures Procedure Name Priority Date/Time Associated Diagnosis Comments EKG 12-LEAD Routine 04/24/2023 9:12 AM EST Cardiomyopathy, unspecified type ICD (implantable cardioverter-defibril lator) in place documented in this encounter Results * Ziopatch 48 Hrs-15 Days (06/03/2023 6:52 AM EDT) Pathologist [facility] Total Enrollment Period 14.0 IRHYTHM Anatomical Region Laterality Modality Other 06/03/2023 Narrative 07/03/2023 5:[address] [facility] ? Zio Patch? Ambulatory Cardiac Event [...] Julissa Lomas APRN CARDIAC SERVICES ORD ERABLES * EKG 12 Lead (04/24/2023 9:12 AM EST) Ventricular rate 72 BPM MUSE SYSTEM Atrial Rate 72 BPM MUSE SYSTEM P-R Interval 156 ms MUSE SYSTEM QRS Duration 100 ms MUSE SYSTEM Q-T Interval 420 ms MUSE SYSTEM QTC Calculated (Bezet) 459 ms MUSE SYSTEM Calculated P Mccoll 75 degrees MUSE SYSTEM Calculated R Mccoll 53 degrees MUSE SYSTEM Calculated T Mccoll 56 degrees MUSE SYSTEM INTERPRETATION Normal sinus rhythm Anterior infarct (cited on or before 13-DEC-2021) Abnormal ECG When compared with ECG of 13-DEC-2021 06:14, QRS axis Shifted right Criteria for Inferior infarct are no longer Present Questionable change in initial forces of Lateral leads T wave inversion no longer evident in Lateral leads Confirmed by MD MARTINEZ ARMIN ([id number]) on 04/24/2023 7:13:50 PM MUSE SYSTEM 04/24/2023 9:12 AM EST 04/24/2023 7:13 PM EST Julissa Lomas APRN ECG ORDERABLES MUSE SYSTEM documented in this encounter Visit Diagnoses Diagnosis Cardiomyopathy, unspecified type ICD (implantable cardioverter-defibrillator) in place Cardiomyopathy, unspecified type ICD (implantable cardioverter-defibrillator) in place documented in this encounter Care Teams Cottage Master Relationship Specialty Start Date End Date Oleg Trinidad MD [address] [place] [address] PCP - General Family Medicine 07/31/21 documented as of this encounter
--- OUTSIDE RECORDS SUMMARY | 2023-10-16 01:23 | XMS_ITS | Encounter Summary ---
Author Organization [facility] Address [facility] [place] [address] Care Team Providers Care Ring Maker Name Role Phone Oleg Trinidad MD Primary Care Provider [phone] Encounter Details Date Type Department Care Team (Late Contact Info) Description 04/19/2022 Notes Only Care Management [facility] [place] [phone] Isabel Santiago Social History Tobacco Use Types Packs/Day Years [...] as of this encounter Progress Notes * Isabel Santiago - 04/19/2022 9:58 AM EST Application Final Determination Application Sent to Program: 03/30/2022 Program Name: [employer] Medication: Jardiance Program Phone #: Program Fax #: Enrollment End Date: 03/24/2023 Quantity Shipped: 90 Day Supply Shipping Timeframe: 7-10 Business days Ships To: Patient documented in this encounter Plan of Treatment Upcoming Encounters Date Type Department Care Team (Late st Contact Info) Description 10/17/2023 10:30 AM EDT Appointment Non-[place] [phone] [place] [address] 10/17/2023 11:40 AM EDT Office Visit Cardiology at [address] [phone] [place] [address] 11/15/2023 10:00 AM EDT Hospital Encounter Non-[place] [phone] Arrived 11/21/2023 1:40 PM EDT Office Visit Cardiology at [address] [phone] Lea Hodges MD [facility] [place] [address] documented as of this encounter Goals Goal Patient Goal Type Associated Problems Recent Progress Patient-Stated? Author DH Home Medication Compliance and Understanding Patient Facing Action Plan No Yahir Mcallister, [facility] Note: To live and see improvement in her heart function and ability to have good quality of life documented as of this encounter Visit Diagnoses Not on filedocumented in this encounter Care Teams Ring Maker Relationship Specialty Start Date End Date Oleg Trinidad MD [address] [place] [address] PCP - General Family Medicine 07/31/21 documented as of this encounter
--- OUTSIDE RECORDS SUMMARY | 2023-10-16 01:23 | XMS_ITS | Encounter Summary ---
Author Organization [facility] [place] [address] Care Team Providers Care Clinical Rehab Liaison Name Role Phone Oleg Trinidad MD Primary Care Provider [phone] Encounter Details Date Type Department Care Team (Latest Contact Info) Description 08/28/2022 10:00 AM EDT TH Visit (TeleHealth) Cardiology at [address] [address] Lea Jay MD [facility] [place] [address] HFrEF (heart failure with reduced ejection fraction) [...] as of this encounter Progress Notes * Lea Jay MD - 08/28/2022 10:00 AM EDT [facility] Note Name: Stacy Esparza Date: 08/28/2022 History of Present Illness Stacy Esparza is [...] Internal Events Since the last visit with me 01/2022 She has been feeling a little more breathless She previously taken Furosemide 40 mg for these symptoms, but does not have any more She has gained 4-5 lbs No swelling in legs Some abdominal swelling No lightheadedness/dizziness/syncope No ICD firing No chest pain No palpitations Tolerating meds No orthopnea, PND Complains of intermittent diarrhea ? Related to water. Using immodium Struggles with back pain; had imaging 30 years ago with bulging disk. No red flag symptoms. Using tramadol sparingling Review of Systems All other 12 point review of systems negative except as noted above. Past Medical History Patient Active Problem List Diagnosis ICD (implantable cardioverter-defibrillator) in place Cardiomyopathy CAD (coronary artery disease) Other primary cardiomyopathies Alcohol abuse, unspecified Hyperpotassemia Cardiogenic shock Unspecified hypothyroidism Full Medication List No outpatient medications have been marked as taking for the 08/28/22 encounter (TH Visit (TeleHealth)) with Lea Jay MD. Allergies Allergies Allergen Reactions Lisinopril Other (See Comments) cough Other reaction(s): Cough Venom-Honey Bee Social & Family History TOB: Social History Tobacco Use Smoking Status Some Days Packs/day: 0.25 Years: 50.00 Pack years: 12.50 Types: Cigarettes Smokeless Tobacco Never Tobacco Comments 0.25-0.5 PPD ETOH: Social History Substance and Sexual Activity Alcohol Use No Comment: none in last 3 months 08/28/2022 Illicits: Social History Substance and Sexual Activity Drug Use No FHx: No family history on file. Physical Exam There were no vitals filed for this visit. Deferred due to telehealth Relevant Labs Last wbc, hgb, hct plt No results for input(s): WBC, HGB, HCT in the last 72 hours. Invalid input(s): PLT Last 3 Lytes Recent Labs 03/12/22 0839 02/21/22 1113 12/12/21 0720 NA 139 135 137 K 4.7 5.4* 4.9 CL 103 101 101 CO2 26 24 25 BUN 18 20* 14 CREATININE 0.86 1.08 0.90 Last 3 ProBNP, Trop, CK No results for input(s): CK, TROPONINT, PROBNP in the last 168 hours. Relevant CardiacStudies TTE 08/13: Left ventricle is severely dilated. Wall thickness is normal. Left ventricular systolic function is severely reduced. The left ventricular ejection fraction is 24% by Guzman's biplane. The left ventricular ejection fraction is 24% by 3D volumetric assessment. Global longitudinal strain is measured at -8.2 %. (eParachute). Severe global hypokinesis. TTE 03/14: 1. The [...] LAD 50% mid lesion, mild LCX disease, ENDLESS STEAMER TENDER of the RCA, LVEDP 45 Assessment/Plan: In summary, Stacy Esparza is doing well from a symptom standpoint. She is NYHA class II with no diuretic requirement. She is predominantly limited by low back pain. #HFrEF: d/t ?viral c/b ischemia, RCA ENDLESS STEAMER TENDER on cath. EF 26%, NYHA 2-3. S/P ICD - Beta marita: Mertop succ 100mg QD - RASi: Entresto 24/26mg BID (hasn't been able to assess BP at home) - MRA: Samir 12.5mg PO QD based on K 5.4, will DC this med and K remains 5. - SGLT-2 Empa 10mg QD - Diuretic: resume lasix 40 for GONZALEZ, weight gain #CAD: ENDLESS STEAMER TENDER of RCA on cath from 02/12, 50% mLAD lesion, no angina - ASA 81mg QD - Atrova 80mg QD #HL: LDL 30 in 08/13 on 80 atorva - Statin: Atorvab 40mg PO QD #DM: HbA1c: 5.6 --on jardiance and metformin Return in about 3 months (around 11/28/2022). Lea Jay MD Advanced Cardiac Disease and Pulmonary Hypertension documented in this encounter Plan of Treatment Upcoming Encounters Date Type Department Care Team (Late st Contact Info) Description 10/17/2023 10:30 AM EDT Appointment [place] [phone] [place] [address] 10/17/2023 11:40 AM EDT Office Visit Cardiology at [address] [phone] [place] [address] 11/15/2023 10:00 AM EDT Hospital Encounter Non-[place] [phone] Arrived 11/21/2023 1:40 PM EDT Office Visit Cardiology at [address] [phone] Lea Hodges MD [facility] [place] [address] documented as of this encounter Goals Goal Patient Goal Type Associated Problems Recent Progress Patient-Stated? Author DH Home Medication Compliance and Understanding Patient Facing Action Plan Yahir Ball, [facility] Note: To live and see improvement in her heart function and ability to have good quality of life documented as of this encounter Visit Diagnoses Diagnosis HFrEF (heart failure with reduced ejection fraction) documented in this encounter Care Teams Clinical Rehab Liaison Relationship Specialty Start Date End Date Oleg Trinidad MD [address] [place] [address] PCP - General Family Medicine 07/31/21 documented as of this encounter
--- OUTSIDE RECORDS SUMMARY | 2023-10-16 01:23 | XMS_ITS | Encounter Summary ---
Author Organization [facility] [place] [address] Care Team Providers Care Senior Sql Server Developer Name Role Phone Oleg Trinidad MD Primary Care Provider [phone] Encounter Details Date Type Department Care Team (Latest Contact Info) Description 06/03/2022 11:00 AM EDT - 06/03/2022 11:59 PM EDT Hospital Encounter Non-[place] [address] Discharge Disposition: Home Social History Tobacco Use [...] 10:30 AM EDT Appointment Non-[place] [address] Lea Jay MD [facility] CARDIOLOGY [place], [place] [phone] 10/17/2023 11:40 AM EDT Office Visit Cardiology at [address] [address] Lea Jay MD [facility] [place] [address] 11/15/2023 10:00 AM EDT Hospital Encounter Non-[place] [phone] Arrived 11/21/2023 1:40 PM EDT Office Visit Cardiology at [address] [phone] Lea Hodges MD [facility] [place] [address] documented as of this encounter Goals Goal Patient Goal Type Associated Problems Recent Progress Patient-Stated? Author Home Medication Compliance and Understanding Patient Facing Action Plan No Yahir Mcallister, [facility] Note: To live and see improvement in her heart function and ability to have good quality of life documented as of this encounter Visit Diagnoses Not on filedocumented in this encounter Care Teams Senior Sql Server Developer Relationship Specialty Start Date End Date Oleg Trinidad MD [address] [place] [address] PCP - General Family Medicine 07/31/21 documented as of this encounter
--- OUTSIDE RECORDS SUMMARY | 2023-10-16 01:23 | XMS_ITS | Encounter Summary ---
Author Organization [facility] [place] [address] Care Team Providers Care Black Pickler Name Role Phone Oleg Trinidad MD Primary Care Provider [phone] Encounter Details Date Type Department Care Team (Late st Contact Info) Description 04/30/2022 9:00 AM EST Office Visit Cardiology at [address] [phone] Fatou Bolanos, RN ICD (implantable cardioverter-defibril lator) in place Social [...] Sign Reading Time Taken Comments Blood Pressure 117/65 04/30/2022 9:19 AM EST Pulse 90 04/30/2022 9:19 AM EST Temperature - - Respiratory Rate - - Oxygen Saturation 94% 04/30/2022 9:19 AM EST Inhaled Oxygen Concentration - - Weight 70.8 kg (156 lb) 04/30/2022 9:19 AM EST Height 162.6 cm (5' 4) 04/30/2022 9:19 AM EST Body Mass Index 26.78 04/30/2022 9:19 AM EST documented in this encounter Progress Notes * Fatou Bolanos RN - 04/30/2022 9:00 AM EST Images from the original note were not included. Clinical Electrophysiology Device Service Note Stacy Esparza is a 66 y.o. female with a history of mixed ischemic/non-ischemic cardiomyopathy, whounderwent implant of a single-lead left-sided ICD on 12/12/21 for primary prevention. She presents today to address T wave oversensing on her remote transmission by Dr. Krishna. She reports feeling well and denies any problems. Exchange Operator: Lea Jay MD PCP: Oleg Trinidad MD Final Parameters at implant: LEAD AND GENERATOR DATA: ?? Nuclear Medicine Specialist Model # Serial # Generator Medtronic [id number] Ventricular Lead Medtronic [id number] ?? PACE/SENSE DATA: ?? Sensed wave (mV) Threshold (V) Impedance (Ohms) HVB Imp (Ohms) Ventricle 12.9 0.75V @ 0.4 ms 684 82 ?? FINAL PROGRAMMING: Pacing: Mode Lower rate (ppm) Upper rate (ppm) ?? VVI 40 - ?? Detection Rates Therapy AF Monitor VF On >200 bpm iATP(3), 40 Jx6 FVT Off All Rx Off VT Off All Rx Off Presenting rhythm: VS in the 90s Underlying rhythm: SR in the 90s Ventricular Lead: R wave: >20.0mV Impedance: 665 ohms Threshold: 0.75V @ 0.40 ms Defibrillation impedance: 83 ohms Heart rate histograms: well distributed Pacing percentages: EXECUTIVE ASSISTANT <0.1% Episodes: VT-NS: 7 total and 5 seem to be T wave oversensing which was addressed today. The other 2 are nonsustained VT episodes about 1 second in duration. SVT: 3 with average rates in the 150s. Denies symptoms. Battery voltage: 3.08V (HANDYPERSON = 2.80V) Estimated remaining longevity is 14 years Wound assessment: well healed left chest incision prominent with no signs of erosion. Reprogramming: Plan: Remote in 3 mos. RTC in 6 mos. Provider: Fatou Bolanos RN with [employer] Supply Chain Logistics Manager Alia Cifuentes Attending: Dr. Krishna documented in this encounter Plan of Treatment Upcoming Encounters Date Type Department Care Team (Late st Contact Info) Description 10/17/2023 10:30 AM EDT Appointment Non[place] [address] [place] [address] 10/17/2023 11:40 AM EDT Office Visit Cardiology at [address] [phone] [place] [address] 11/15/2023 10:00 AM EDT Hospital Encounter Non[place] [phone] Arrived 11/21/2023 1:40 PM EDT Office Visit Cardiology at [address] [phone] Lea Hodges MD [facility] [place] [address] documented as of this encounter Goals Goal Patient Goal Type Associated Problems Recent Progress Patient-Stated? Author DH [place] Medication Compliance and Understanding Patient Facing Action Plan Yahir Ball, [facility] Note: To live and see improvement in her heart function and ability to have good quality of life documented as of this encounter Visit Diagnoses Diagnosis ICD (implantable cardioverter-defibrillator) in place documented in this encounter Care Teams Black Pickler Relationship Specialty Start Date End Date Oleg Trinidad MD [address] [place] [address] PCP - General Family Medicine 07/31/21 documented as of this encounter
--- OUTSIDE RECORDS SUMMARY | 2023-10-16 01:23 | XMS_ITS | Encounter Summary ---
Author Organization [facility] [place] [address] Care Team Providers Care Network Consultant Name Role Phone Oleg Trinidad MD Primary Care Provider [phone] Encounter Details Date Type Department Care Team (Late st Contact Info) Description 12/26/2022 2:00 PM EDT Office Visit Cardiology at [address] [phone] Fatou Bolanos, RN ICD (implantable cardioverter-defibril lator) [...] Sign Reading Time Taken Comments Blood Pressure 123/93 12/26/2022 1:56 PM EDT Pulse 91 12/26/2022 1:56 PM EDT Temperature - - Respiratory Rate 16 12/26/2022 1:56 PM EDT Oxygen Saturation 93% 12/26/2022 1:56 PM EDT Inhaled Oxygen Concentration - - Weight 68.5 kg (151 lb) 12/26/2022 1:56 PM EDT Height 162.6 cm (5' 4) 12/26/2022 1:56 PM EDT Body Mass Index 25.92 12/26/2022 1:56 PM EDT documented in this encounter Progress Notes * Fatou Bolanos RN - 12/26/2022 2:00 PM EDT Images from the original note were not included. Clinical Electrophysiology Device Service Note Stacy Esparza is a 67 y.o. female with a history of mixed ischemic/non-ischemic cardiomyopathy, whounderwent implant of a single-lead left-sided ICD on 12/12/21 for primary prevention. She presents today for a device check. She denies any issues. Windows Architect: Lea Jay MD PCP: Oleg Trinidad MD Final Parameters at implant: LEAD AND GENERATOR DATA: Puller Through Model # Serial # Generator Medtronic [id number] Ventricular Lead Medtronic [id number] PACE/SENSE DATA: Sensed wave (mV) Threshold (V) Impedance (Ohms) HVB Imp (Ohms) Ventricle 12.9 0.75V @ 0.4 ms 684 82 FINAL PROGRAMMING: Pacing: Mode Lower rate (ppm) Upper rate (ppm) VVI 40 - Detection Rates Therapy AF Monitor VF On >200 bpm iATP(3), 40 Jx6 FVT Off All Rx Off VT Off All Rx Off Presenting rhythm: VS in the 80s Underlying rhythm: SR in the 80s Ventricular Lead: R wave: >20.0mV Impedance: 741 ohms Threshold: 0.75V @ 0.40 ms Defibrillation impedance: 94 ohms Since April 30, 2022 Heart rate histograms: Pacing percentages: CHARGE GANG WEIGHER <0.1% Episodes: VT-NS: 7 episodes with the longest lasting 5 seconds Denies symptoms. SVT: 2 with average rates in the 150 with the longest lasting 46 seconds Denies symptoms. Battery voltage: 3.03V (CUSTOMER SERVICE SUPERVISOR = 2.80V) Estimated remaining longevity is 13.4 years Charge time 3.5 seconds on September 13, 2022 Wound assessment: well healed left chest incision prominent with no signs of erosion. Reprogramming: Iterative changes made for testing purposes only; no programmed parameter modifications Plan: Remote in 3 mos. RTC in 6 mos. Provider: Fatou Bolanos RN Attending: Dr. Moon documented in this encounter Plan of Treatment Upcoming Encounters Date Type Department Care Team (Late st Contact Info) Description 10/17/2023 10:30 AM EDT Appointment Non-[place] [address] [place] [address] 10/17/2023 11:40 AM EDT Office Visit Cardiology at [address] [phone] [place] [address] 11/15/2023 10:00 AM EDT Hospital Encounter Non-[place]vasive [place] [phone] Arrived 11/21/2023 1:40 PM EDT Office Visit Cardiology at [address] [phone] Lea Hodges MD [facility] [place] [address] documented as of this encounter Goals Goal Patient Goal Type Associated Problems Recent Progress Patient-Stated? Author DH [place] Medication Compliance and Understanding Patient Facing Action Plan Yahir Ball, [facility] Note: To live and see improvement in her heart function and ability to have good quality of life documented as of this encounter Visit Diagnoses Diagnosis ICD (implantable cardioverter-defibrillator) in place documented in this encounter Care Teams Network Consultant Relationship Specialty Start Date End Date Oleg Trinidad MD [address] [place] [address] PCP - General Family Medicine 07/31/21 documented as of this encounter
--- OUTSIDE RECORDS SUMMARY | 2023-10-16 01:23 | XMS_ITS | Encounter Summary ---
Author [facility] [place] [address] Care Team Providers Care Education Paraprofessional Name Role Phone Oleg Trinidad MD Primary Care Provider [phone] Encounter Details Date Type Department Care Team (Late st Contact Info) Description 02/22/2022 Telephone Cardiology at [address] [phone] Kenia Rose, RN Social History Tobacco Use Types Packs/Day [...] encounter Miscellaneous Notes * Telephone Encounter - Kenia Rose RN - 02/22/2022 4:53 PM EST Images from the original note were not included. TC to patient to relay message from Dr. Jay. Patient verbalized understanding and repeated instructions back clearly and correctly. Patient has appt at [facility] on 03/12, but states she will not have time to stop at the lab and would like orders sent to her PCP's office. Lea Jay MD Paquin, Dawn M, RN Can you call patient and have her stop shai given hyperkalemia? We should get repeat labs in 2 weeks. Thanks! Kenia Rose hand collator [facility] [phone] documented in this encounter Plan of Treatment Upcoming Encounters Date Type Department Care Team (Late st Contact Info) Description 10/17/2023 10:30 AM EDT Appointment Non-Invasive [place] [address] Lea Jay MD [place], [place] [phone] 10/17/2023 11:40 AM EDT Office Visit Cardiology at [address] [phone] [place] [address] 11/15/2023 10:00 AM EDT Hospital Encounter Non-Invasive [place] [address] Arrived 11/21/2023 1:40 PM EDT Office Visit Cardiology at [address] [phone] Lea Hodges MD [facility] CARDIOLOGY [place], [place] [phone] documented as of this encounter Goals Goal Patient Goal Type Associated Problems Recent Progress Patient-Stated? Author DH Home Medication Compliance and Understanding Patient Facing Action Plan No Yahir Mcallister, [facility] Note: To live and see improvement in her heart function and ability to have good quality of life documented as of this encounter Visit Diagnoses Not on filedocumented in this encounter Care Teams Education Paraprofessional Relationship Specialty Start Date End Date Oleg Trinidad MD [address] [place] [address] PCP - General Family Medicine 07/31/21 documented as of this encounter
--- OUTSIDE RECORDS SUMMARY | 2023-10-16 01:23 | XMS_ITS | Encounter Summary ---
Author Organization [facility] Address [facility] [place] [address] Care Team Providers Care Animal Care Supervisor Name Role Phone Oleg Trinidad MD Primary Care Provider [phone] Encounter Details Date Type Department Care Team (Late st Contact Info) Description 02/19/2023 Notes Only Care Management [facility] [place] [phone] Jeromy Ellsworth Social History Tobacco Use Types [...] encounter Progress Notes * Jeromy Ellsworth - 02/19/2023 12:55 PM EST I sent the re-enrollment application for assistance with ENTRESTO to SHEREE ROSE for their signature and prescription. I will follow through with the remainder of the application once everything is returned to me. This is for the 2023 enrollment year. documented in this encounter Plan of Treatment Upcoming Encounters Date Type Department Care Team (Late st Contact Info) Description 10/17/2023 10:30 AM EDT Appointment Non[place] [address] [place] [address] 10/17/2023 11:40 AM EDT Office Visit Cardiology at [address] [phone] [place] [address] 11/15/2023 10:00 AM EDT Hospital Encounter Non-[place] [address] Arrived 11/21/2023 1:40 PM EDT Office Visit Cardiology at [address] [phone] Lea Hodges MD [facility] [place] [address] documented as of this encounter Goals Goal [...] filedocumented in this encounter Care Teams Animal Care Supervisor Relationship Specialty Start Date End Date Oleg Trinidad MD [address] [place] [address] PCP - General Family Medicine 07/31/21 documented as of this encounter
--- OUTSIDE RECORDS SUMMARY | 2023-10-16 01:23 | XMS_ITS | Encounter Summary ---
Author Organization [facility] [address] Care Team Providers Care Cash Processing Specialist Name Role Phone Olge Trinidad MD Primary Care Provider [phone] Encounter Details Date Type Department Care Team (Latest Contact Info) Description 02/18/2023 10:00 AM EST - 02/18/2023 11:59 PM [facility] Hospital Encounter Non-[place] [address] Discharge Disposition: Home Social History Tobacco Use [...] 10:30 AM EDT Appointment Non-[place] [address] Lea Jay MD [facility] [address] 10/17/2023 11:40 AM EDT Office Visit Cardiology at [address] [phone] [place] [address] 11/15/2023 10:00 AM EDT Hospital Encounter Non-[place]vasive [place] [phone] Arrived 11/21/2023 1:40 PM EDT Office Visit Cardiology at [address] [phone] Lea Hodges MD [facility] [place] [address] documented as of this encounter Goals Goal Patient Goal Type Associated Problems Recent Progress Patient-Stated? Author DH Home Medication Compliance and Understanding Patient Facing Action Plan Yahir Ball, [facility] Note: To live and see improvement in her heart function and ability to have good quality of life documented as of this encounter Procedures Procedure Name Priority Date/Time Associated Diagnosis Comments PRO ICD INTERROGATION REMOTE UP TO 90 DAYS Routine 01/01/2023 7:48 AM EDT documented in this encounter Results * Cardiac Device Check - Remote (01/01/2023 7:48 AM EDT) Anatomical Region Laterality Modality Other 01/01/2023 7:48 AM EDT Dano Omalley MD IMPLANTABLE CARDIAC DEVICE documented in this encounter Visit Diagnoses Not on filedocumented in this encounter Care Teams Cash Processing Specialist Relationship Specialty Start Date End Date Oleg Trinidad MD [address] [place] [address] PCP - General Family Medicine 07/31/21 documented as of this encounter
--- OUTSIDE RECORDS SUMMARY | 2023-10-16 01:23 | XMS_ITS | Encounter Summary ---
Author Organization [facility] [place] [address] Care Team Providers Care Proof Tester Name Role Phone Oleg Trinidad MD Primary Care Provider [phone] Encounter Details Date Type Department Care Team (Late st Contact Info) Description 02/22/2022 Orders Only Cardiology at [address] [phone] [place] [address] Chronic systolic (congestive) heart failure Social History Tobacco Use Types Packs/Day Years [...] 10:30 AM EDT Appointment Non-Invasive [place] [phone] [place] [address] 10/17/2023 11:40 AM EDT Office Visit Cardiology at [address] [phone] [place] [address] 11/15/2023 10:00 AM EDT Hospital Encounter Non-Invasive [place] [phone] Arrived 11/21/2023 1:40 PM EDT Office Visit Cardiology at [address] [phone] Lea Hodges MD [facility] [place] [address] documented as of this encounter Goals Goal Patient Goal Type Associated Problems Recent Progress Patient-Stated? Author Home Medication Compliance and Understanding Patient Facing Action Plan Yahir Ball, [facility] Note: To live and see improvement in her heart function and ability to have good quality of life documented as of this encounter Procedures Procedure Name Priority Date/Time Associated Diagnosis Comments CARDIAC DEVICE CHECK - REMOTE Routine 03/13/2022 4:07 PM EST CARDIAC DEVICE CHECK - REMOTE Routine 02/23/2022 6:51 PM EST documented in this encounter Results * Cardiac Device Check - Remote (03/13/2022 4:07 PM EST) Anatomical Region Laterality Modality Other 03/13/2022 4:07 PM EST Javy BENTLEY IMPLANTABLE CARDIAC DEVICE * Cardiac Device Check - Remote (02/23/2022 6:51 PM EST) Anatomical Region Laterality Modality Other 02/23/2022 6:51 PM EST Archana BENTLEY IMPLANTABLE CARDIAC DEVICE documented in this encounter Visit Diagnoses Diagnosis Chronic systolic (congestive) heart failure documented in this encounter Care Teams Proof Tester Relationship Specialty Start Date End Date Oleg Trinidad MD [address] [place] [address] PCP - General Family Medicine 07/31/21 documented as of this encounter
--- OUTSIDE RECORDS SUMMARY | 2023-10-16 01:23 | XMS_ITS | Encounter Summary ---
Author Organization [facility] [place] [address] Care Team Providers Care Stone Gluer Name Role Phone Oleg Trinidad MD Primary Care Provider [phone] Encounter Details Date Type Department Care Team (Latest Contact Info) Description 02/21/2022 9:00 AM EST Laboratory Appointment Lab [address] [place] [address] Hyperglycemia; Chronic systolic (congestive) heart failure Social History [...] 10:30 AM EDT Appointment Non-[place] [address] [facility] [place] [address] 10/17/2023 11:40 AM EDT Office Visit Cardiology at [address] [phone] [facility] [place] [address] 11/15/2023 10:00 AM EDT Hospital Encounter Non-Invasive Cardiology [place] [address] Arrived 11/21/2023 1:40 PM EDT Office Visit Cardiology at [address] [phone] Lea Hodges MD [facility] [place] [address] documented as of this encounter Goals Goal Patient Goal Type Associated Problems Recent Progress Patient-Stated? Author [facility] Medication Compliance and Understanding Patient Facing Action Plan Yahir Ball, [facility] Note: To live and see improvement in her heart function and ability to have good quality of life documented as of this encounter Procedures Procedure Name Priority Date/Time Associated Diagnosis Comments HC PROBNP Routine 02/21/2022 11:13 AM EST Chronic systolic (congestive) heart failure HC MAGNESIUM, SERUM Routine 02/21/2022 1 1:13 AM EST Chronic systolic (congestive) heart failure HC VENIPUNCTURE Routine 02/21/2022 11:13 AM EST Hyperglycemia BASIC METABOLIC PANEL (NON-FASTING) Routine 02/21/2022 11:13 AM EST Chronic systolic (congestive) heart failure documented in this encounter Results * (ABNORMAL) Basic Metabolic Panel (non-fasting) (02/21/2022 11:13 AM EST) Glucose Lvl 90 65 - 199 mg/dL [facility] Comment:Diabetes: >=200 mg/d L plus symptoms BUN 20(H) 8 - 18 mg/dL [facility] Creatinine 1.08 0.70 - 1.20 mg/dL [facility] Sodium 135 135 - 145 mmol/L [facility] Potassium 5.4(H) 3.5 - 5.0 mmol/L [facility] Comment: Please note: ??Patients with WBC >100,000 may have falsely elevated Potassium levels. ??For accurate Potassium quantification in these patients send serum separator tube (gold top) for subsequent determinations. ??Contact the Clinical Chemistry Laboratory if there are any questions. Chloride 101 98 - 107 mmol/L [facility] CO2 24 22 - 31 mmol/L [facility] Anion Gap 10 5 - 15 mmol/L [facility] Calcium 9.3 8.5 - 10.5 mg/dL [facility] Estimated GFR 56(L) >=60 mL/min/1. 73 m?? [facility] [...] Lab Lea Jay MD CHEMISTRY ORDERABL ES [facility] [place] [address] * Magnesium (02/21/2022 11:13 AM EST) Magnesium 0.92 0.69 - 1.07 mmol/L [facility] Blood 02/21/2022 11:1 3 AM EST 02/21/2022 11:20 AM EST Narrative Resulting Agency Comment Spec In Lab Lea Jay MD CHEMISTRY ORDERABL ES Performing Organization Address [facility] Co de Phone Number [facility] [place] [address] * (ABNORMAL) pro-Brain Natriuretic Peptide (02/21/2022 11:13 AM EST) Pathologist [facility] ProBNP 431(H) <=124 pg/mL [facility] Blood 02/21/2022 11:1 3 AM EST 02/21/2022 11:20 AM EST Narrative Resulting Agency Comment Spec In Lab Lea Jay MD CHEMISTRY ORDERABL ES Performing Organization Address [facility] Co de Phone Number [facility] [place] [address] * Hemoglobin A1c (02/21/2022 11:13 AM EST) [facility] Hemoglobin A1C 5.6 4.3 - 5.6 % [facility] Comment: Reference Range: 4.3 - [...] Mellitus, Diabetes Care 2013; 36: Suppl. 1, S67-74 Est Avg Gluc 113 mg/dL [facility] Comment: eAG equivalents for HbA1c percentages: [...] into estimated average glucose values. ??Diabetes Care 2008:31(8):7717-6376. Blood 02/21/2022 11:1 3 AM EST 02/21/2022 11:20 AM EST Narrative Resulting Agency Comment Spec In Lab Lea Jay MD CHEMISTRY ORDERABL ES Performing Organization Address City/State/[facility] Co de Phone Number [facility] [place] [address] documented in this encounter Visit Diagnoses Diagnosis Hyperglycemia Other abnormal glucose Chronic systolic (congestive) heart failure documented in this encounter Care Teams Stone Gluer Relationship Specialty Start Date End Date Oleg Trinidad MD [address] [place] [address] PCP - General Family Medicine 07/31/21 documented as of this encounter
--- OUTSIDE RECORDS SUMMARY | 2023-10-16 01:23 | XMS_ITS | Encounter Summary ---
Author Organization [facility] [place] [address] Care Team Providers Care Beater Machine Operator Name Role Phone Oelg Trinidad MD Primary Care Provider [phone] Encounter Details Date Type Department Care Team (Late st Contact Info) Description 02/26/2023 Transcribe Orders eDH Incoming Referrals [phone] Oleg Trinidad MD [address] [place] [address] Social History Tobacco Use Types Packs/Day Years [...] 10:30 AM EDT Appointment [place] [phone] Lea Jay MD [facility] [place] [address] 10/17/2023 11:40 AM EDT Office Visit Cardiology at [address] [phone] Lea Jay MD [facility] [place] [address] 11/15/2023 10:00 AM EDT Hospital Encounter Non[place] [address] Arrived 11/21/2023 1:40 PM EDT Office Visit Cardiology at [address] [phone] [facility] [place] [address] documented as of this encounter Goals Goal Patient Goal Type Associated Problems Recent Progress Patient-Stated? Author [facility] Medication Compliance and Understanding Patient Facing Action Plan No Yahir Mcallister, [facility] Note: To live and see improvement in her heart function and ability to have good quality of life documented as of this encounter Visit Diagnoses Not on filedocumented in this encounter Care Teams Beater Machine Operator Relationship Specialty Start Date End Date Oleg Trinidad MD [address] [place] [address] PCP - General Family Medicine 07/31/21 documented as of this encounter
--- OUTSIDE RECORDS SUMMARY | 2023-10-16 01:23 | XMS_ITS | Encounter Summary ---
Author Organization [facility] [place] [address] Care Team Providers Care Brim Edge Trimmer Name Role Phone Oleg Trinidad MD Primary Care Provider [phone] Encounter Details Date Type Department Care Team (Late st Contact Info) Description 01/16/2023 Notes [place] [phone] Jeromy Ellsworth Social History Tobacco Use Types [...] encounter Progress Notes * Jeromy Ellsworth - 01/16/2023 1:52 PM EDT I sent a letter and the re-enrollment application for assistance with [employer] to thepatient for them to complete, sign and return to the Medication Assistance Program. This is for [id number] enrollment year. documented in this encounter Plan of Treatment Upcoming Encounters Date Type Department Care Team (Late st Contact Info) Description 10/17/2023 10:30 AM EDT Appointment [facility]vasive [facility] [place] [address] [place] [address] 10/17/2023 11:40 AM EDT Office Visit Cardiology at [address] [phone] [place] [address] 11/15/2023 10:00 AM EDT Hospital Encounter Non-Invasive [place] [phone] Arrived 11/21/2023 1:40 PM EDT Office Visit Cardiology at [address] [phone] Lea Hodges MD [facility] [address] documented as of this encounter Goals Goal Patient Goal Type Associated Problems Recent Progress Patient-Stated? Author DH Home Medication Compliance and Understanding Patient Facing Action Plan Yahir Ball, [facility] Note: To live and see improvement in her heart function and ability to have good quality of life documented as of this encounter Visit Diagnoses Not on filedocumented in this encounter Care Teams Brim Edge Trimmer Relationship Specialty Start Date End Date Oleg Trinidad MD [address] [place] [address] PCP - General Family Medicine 07/31/21 documented as of this encounter
--- OUTSIDE RECORDS SUMMARY | 2023-10-16 01:23 | XMS_ITS | Encounter Summary ---
Author Organization [facility] [place] [address] Care Team Providers Care Executive Creative Director Name Role Phone Oleg Trinidad MD Primary Care Provider [phone] Encounter Details Date Type Department Care Team (Late st Contact Info) Description 04/23/2023 Orders [place] [phone] Irena Hough APRN [facility] [place] [address] Social History Tobacco Use Types Packs/Day Years [...] 10:30 AM EDT Appointment Non-Invasive [place] [phone] Lea Jay MD [facility] [place] [address] 10/17/2023 11:40 AM EDT Office Visit Cardiology at [address] [phone] Lea Jay MD [facility] [place] [address] 11/15/2023 10:00 AM EDT Hospital Encounter Non-Invasive [place] [address] Arrived 11/21/2023 1:40 PM EDT Office Visit Cardiology at [address] [address] Lea Hodges MD [facility] [place] [address] documented as of this encounter Goals Goal Patient Goal Type Associated Problems Recent Progress Patient-Stated? Author DH Home Medication Compliance and Understanding Patient Facing Action Plan No Yahir Mcallister, [facility] Note: To live and see improvement in her heart function and ability to have good quality of life documented as of this encounter Visit Diagnoses Not on filedocumented in this encounter Care Teams Executive Creative Director Relationship Specialty Start Date End Date Oleg Trinidad MD [address] [place] [address] PCP - General Family Medicine 07/31/21 documented as of this encounter
--- OUTSIDE RECORDS SUMMARY | 2023-10-16 01:23 | XMS_ITS | Encounter Summary ---
Author Organization [facility] [place] [address] Care Team Providers Care Micro Lab Analyst Name Role Phone Oleg Trinidad MD Primary Care Provider Encounter Details Date Type Department Care Team (Latest Contact Info) Description 11/20/2022 10:00 AM EDT - 11/20/2022 11:59 PM EDT Hospital Encounter Non-Invasive [place] [address] Discharge Disposition: Home Social History Tobacco Use [...] 10:30 AM EDT Appointment Non-Invasive [place] [address] Lea Jay MD [facility] [place] [address] 10/17/2023 11:40 AM EDT Office Visit Cardiology at [address] [phone] Lea Jay MD [facility] [place] [address] 11/15/2023 10:00 AM EDT Hospital Encounter Non-Invasive [place] [phone] Arrived 11/21/2023 1:40 PM EDT Office Visit Cardiology at [address] [phone] Lea Hodges MD [facility] [place] [address] documented as of this encounter Goals Goal Patient Goal Type Associated Problems Recent Progress Patient-Stated? Author DH Home Medication Compliance and Understanding Patient Facing Action Plan Yahir Ball, [facility] Note: To live and see improvement in her heart function and ability to have good quality of life documented as of this encounter Visit Diagnoses Not on filedocumented in this encounter Care Teams Micro Lab Analyst Relationship Specialty Start Date End Date Oleg Trinidad MD [address] [place] [address] PCP - General Family Medicine 07/31/21 documented as of this encounter
--- OUTSIDE RECORDS SUMMARY | 2023-10-16 01:23 | XMS_ITS | Encounter Summary ---
Author Organization [facility] [place] [address] Care Team Providers Care Aerospace Quality Engineer Name Role Phone Oleg Trinidad MD Primary Care Provider [phone] Encounter Details Date Type Department Care Team (Late st Contact Info) Description 03/19/2023 Telephone Lab [address] [place] [phone] Stormy Cordero Social History Tobacco Use Types Packs/Day Years [...] encounter Miscellaneous Notes * Telephone Encounter - Stormy Cordero - 03/19/2023 10:29 AM EST Left voicemail for patient that her appointment for 03/20/23 has been canceled. documented in this encounter Plan of Treatment Upcoming Encounters Date Type Department Care Team (Late st Contact Info) Description 10/17/2023 10:30 AM EDT Appointment Non[place] [address] [place] [address] 10/17/2023 11:40 AM EDT Office Visit Cardiology at [address] [phone] [place] [address] 11/15/2023 10:00 AM EDT Hospital Encounter Non-[place] [phone] Arrived 11/21/2023 1:40 PM EDT Office Visit Cardiology at [address] [phone] Lea Hodges MD [facility] [place] [address] documented as of this encounter Goals Goal Patient Goal Type Associated Problems Recent Progress Patient-Stated? Author DH Home Medication Compliance and Understanding Patient Facing Action Plan Yahir Ball, [facility] Note: To live and see improvement in her heart function and ability to have good quality of life documented as of this encounter Visit Diagnoses Not on filedocumented in this encounter Care Teams Aerospace Quality Engineer Relationship Specialty Start Date End Date Oleg Trinidad MD [address] [place] [address] PCP - General Family Medicine 07/31/21 documented as of this encounter
--- OUTSIDE RECORDS SUMMARY | 2023-10-16 01:23 | XMS_ITS | Encounter Summary ---
Author Organization [facility] [place] [address] Care Team Providers Care Case Managers Name Role Phone Oleg Trinidad MD Primary Care Provider [phone] Encounter Details Date Type Department Care Team (Latest Contact Info) Description 12/26/2022 Travel Social History Tobacco Use Types Packs/Day [...] 10:30 AM EDT Appointment Non-[place] [phone] Lea Jay MD [facility] [place] [address] 10/17/2023 11:40 AM EDT Office Visit Cardiology at [address] [phone] Lea Jay MD [facility] [place] [address] 11/15/2023 10:00 AM EDT Hospital Encounter Non-[place]vasive [place] [phone] Arrived 11/21/2023 1:40 PM EDT Office Visit Cardiology at [address] [phone] Lea Hodges MD [facility] [place] [address] documented as of this encounter Goals Goal Patient Goal Type Associated Problems Recent Progress Patient-Stated? Author DH Home Medication Compliance and Understanding Patient Facing Action Plan No Yahir Mcallister, [facility] Note: To live and see improvement in her heart function and ability to have good quality of life documented as of this encounter Visit Diagnoses Not on filedocumented in this encounter Care Teams Case Managers Relationship Specialty Start Date End Date Oleg Trinidad MD [address] [place] [address] PCP - General Family Medicine 07/31/21 documented as of this encounter
--- OUTSIDE RECORDS SUMMARY | 2023-10-16 01:23 | XMS_ITS | Encounter Summary ---
Author [facility] [place] [address] Care Team Providers Care Inclusion Manager Name Role Phone Oleg Trinidad MD Primary Care Provider [phone] Reason for Visit * Reason Onset Date Comments Follow-up 03/15/2022 Hyperkalemia Encounter Details Date Type Department Care Team (Late st Contact Info) Description 03/15/2022 Telephone Cardiology at [address] [phone] Chela Berry, RN Follow-up (Hyperkalemia) Social History Tobacco Use Types Packs/Day Years [...] encounter Miscellaneous Notes * Telephone Encounter - Chela Berry, RN - 03/15/2022 5:01 PM EST Pt calling to report that she has gotten the repeat labs done as requested by Dr Jay, after stopping the Spironolactone 12.5 mg daily. K+ is back to normal. Should she restart the Spironolactone? Message reviewed with SHEREE Carrero who reviewed the question with Dr Jay. Pt is to stay off the Spironolactone. They may want to restart at another time but not at this time. Med list updated, med removed. Call placed to the pharmacy [facility] to have them remove the medication from their records. documented in this encounter Plan of Treatment Upcoming Encounters Date Type Department Care Team (Late st Contact Info) Description 10/17/2023 10:30 AM EDT Appointment Non-[place]vasive [place] [phone] [place] [address] 10/17/2023 11:40 AM EDT Office Visit Cardiology at [address] [phone] [place] [address] 11/15/2023 10:00 AM EDT Hospital Encounter Non-Invasive [place] [phone] Arrived 11/21/2023 1:40 PM EDT Office Visit Cardiology at [address] [phone] Lea Hodges MD [facility] [place] [address] documented as of this encounter Goals Goal Patient Goal Type Associated Problems Recent Progress Patient-Stated? Author Home Medication Compliance and Understanding Patient Facing Action Plan Yahir Ball, [facility] Note: To live and see improvement in her heart function and ability to have good quality of life documented as of this encounter Procedures Procedure Name Priority Date/Time Associated Diagnosis Comments BASIC METABOLIC PANEL (NON-FASTING) Routine 03/12/2022 8:39 AM EST documented in this encounter Results * (ABNORMAL) Basic Metabolic Panel (non-fasting) (03/12/2022 8:39 AM EST) Glucose Lvl 113 EXTERNAL LAB BUN 18 EXTERNAL LAB Creatinine 0.86 EXTERNAL LAB Estimated GFR 74 EXTERNAL LAB Sodium 139 EXTERNAL LAB Potassium 4.7 EXTERNAL LAB Chloride 103 EXTERNAL LAB CO2 26 EXTERNAL LAB Calcium 9.1 EXTERNAL LAB Anion Gap 10 EXTERNAL LAB Blood 03/12/2022 8:39 AM EST Historical Provider CHEMISTRY ORDERAB LES EXTERNAL LAB documented in this encounter Visit Diagnoses Not on filedocumented in this encounter Care Teams Inclusion Manager Relationship Specialty Start Date End Date Oleg Trinidad MD [address] [place] [address] PCP - General Family Medicine 07/31/21 documented as of this encounter
--- OUTSIDE RECORDS SUMMARY | 2023-10-16 01:23 | XMS_ITS | Encounter Summary ---
Author Organization [facility] [place] [address] Care Team Providers Care Nut Dehydrator Operator Name Role Phone Oleg Trinidad MD Primary Care Provider [phone] Encounter Details Date Type Department Care Team (Late st Contact Info) Description 04/23/2023 Telephone [place] [address] Irena Hough, MATERIALS CLERK [facility] [place] [address] Social History Tobacco Use Types Packs/Day Years [...] encounter Miscellaneous Notes * Telephone Encounter - Irena Hough APRN - 04/23/2023 11:11 AM EST Ms. Esparza contacted the vascular secretaries today concerned about our last appointment and the possibility of throwing a blood clot. We discussed the results of her testing performed at [facility] in the setting of decreased R radial pulse and blood pressure differences between BUE. She denies R arm/hand numbness, tingling, pain, change in color and temperature. She denies symptoms of DVT: pain, redness, swelling. We clarified the symptoms of arterial insufficiency vs. DVT, of which she is both asymptomatic per her verbal report via the phone today. I encouraged her to contact the clinic if she has any questions or if her R arm becomes symptomatic. She should use the L arm for blood pressure readings going forward. Ms. Esparza did not have any unanswered questions at the conclusion of our call. documented in this encounter Plan of Treatment Upcoming Encounters Date Type Department Care Team (Late st Contact Info) Description 10/17/2023 10:30 AM EDT Appointment [place] [phone] [place] [address] 10/17/2023 11:40 AM EDT Office Visit Cardiology at [address] [phone] [place] [address] 11/15/2023 10:00 AM EDT Hospital Encounter [place] [address] Arrived 11/21/2023 1:40 PM EDT Office Visit Cardiology at [address] [phone] Lea Hodges MD [facility] [place] [address] documented as of this encounter Goals Goal Patient Goal Type Associated Problems Recent Progress Patient-Stated? Author [facility] Medication Compliance and Understanding Patient Facing Action Plan Yahir Ball, [facility] Note: To live and see improvement in her heart function and ability to have good quality of life documented as of this encounter Visit Diagnoses Not on filedocumented in this encounter Care Teams Nut Dehydrator Operator Relationship Specialty Start Date End Date Oleg Trinidad MD [address] [place] [address] PCP - General Family Medicine 07/31/21 documented as of this encounter
--- OUTSIDE RECORDS SUMMARY | 2023-10-16 01:23 | XMS_ITS | Encounter Summary ---
Author Organization [facility] [place] [address] Care Team Providers Care Cardiovascular Surgical Tech Name Role Phone Oleg Trinidad MD Primary Care Provider [phone] Encounter Details Date Type Department Care Team (Late st Contact Info) Description 02/28/2023 Orders Only [place] [phone] Latoya Johnson APRN [facility] [place] [address] Social History Tobacco Use Types Packs/Day Years [...] 10:30 AM EDT Appointment Non-[place] [phone] Lea Jay MD [facility] [place] [address] 10/17/2023 11:40 AM EDT Office Visit Cardiology at [address] [address] Lea Jay MD [facility] [place] [address] 11/15/2023 10:00 AM EDT Hospital Encounter Non-[place] [phone] Arrived 11/21/2023 1:40 PM EDT Office Visit Cardiology at [address] [phone] Lea Hodges MD [facility] [place] [address] documented as of this encounter Goals Goal Patient Goal Type Associated Problems Recent Progress Patient-Stated? Author [facility] Home Medication Compliance and Understanding Patient Facing Action Plan No Yahir Mcallister, [facility] Note: To live and see improvement in her heart function and ability to have good quality of life documented as of this encounter Visit Diagnoses Not on filedocumented in this encounter Care Teams Cardiovascular Surgical Tech Relationship Specialty Start Date End Date Oleg Trinidad MD [address] [place] [address] PCP - General Family Medicine 07/31/21 documented as of this encounter
--- OUTSIDE RECORDS SUMMARY | 2023-10-16 01:23 | XMS_ITS | Encounter Summary ---
[place] [address] Care Team Providers Care Book Shelver Name Role Phone Oleg Trinidad MD Primary Care Provider [phone] Encounter Details Date Type Department Care Team (Late st Contact Info) Description 03/30/2022 Notes [place] [phone] Jeromy Ellsworth Social History Tobacco Use Types [...] Progress Notes * Jeromy Ellsworth - 03/30/2022 12:35 PM EST I faxed the application for assistance with Jardiance to [employer]. I will follow through once the plant scientist program makes a decision. This is for the 2022 enrollment year. documented in this encounter Plan of Treatment Upcoming Encounters Date Type Department Care Team (Late st Contact Info) Description 10/17/2023 10:30 AM EDT Appointment Non-[place] [address] [place] [address] 10/17/2023 11:40 AM EDT Office Visit Cardiology at [address] [address] [place] [address] 11/15/2023 10:00 AM EDT Hospital Encounter Non-[place] [phone] Arrived 11/21/2023 1:40 PM EDT Office Visit Cardiology at [address] [phone] Lea Hodges MD [facility] [place] [address] documented as of this encounter Goals Goal Patient Goal Type Associated Problems Recent Progress Patient-Stated? Author [facility] Home Medication Compliance and Understanding Patient Facing Action Plan Yahir Ball, [facility] Note: To live and see improvement in her heart function and ability to have good quality of life documented as of this encounter Visit Diagnoses Not on filedocumented in this encounter Care Teams Book Shelver Relationship Specialty Start Date End Date Oleg Trinidad MD [address] [place] [address] PCP - General Family Medicine 07/31/21 documented as of this encounter
--- OUTSIDE RECORDS SUMMARY | 2023-10-16 01:23 | XMS_ITS | Encounter Summary ---
Author [facility] [place] [address] Care Team Providers Care Casino Cashier Name Role Phone Oleg Trinidad MD Primary Care Provider [phone] Encounter Details Date Type Department Care Team (Late st Contact Info) Description 06/29/2022 Telephone Cardiology at [address] [phone] Kenia Rose, RN Social History Tobacco Use [...] Telephone Encounter - Kenia Rose RN - 06/29/2022 2:54 PM EDT VM from patient stating she had labs with her PCP on 06/12 and her potassium level was 5.6. RTC to patient who reports she has remained off the spironolactone. Patient is due for echo and TH appt. Will alert schedulers. Kenia Rose RN Cardiology [facility] at [facility] [address] documented in this encounter Plan of Treatment Upcoming Encounters Date Type Department Care Team (Late st Contact Info) Description 10/17/2023 10:30 AM EDT Appointment Non-Invasive [place] [phone] [place] [address] 10/17/2023 11:40 AM EDT Office Visit Cardiology at [address] [address] [place] [address] 11/15/2023 10:00 AM EDT Hospital Encounter Non-Invasive [place] [phone] Arrived 11/21/2023 1:40 PM EDT Office Visit Cardiology at [address] [phone] Lea Hodges MD [facility] [place] [address] documented as of this encounter Goals Goal Patient Goal Type Associated Problems Recent Progress Patient-Stated? Author [facility] Home Medication Compliance and Understanding Patient Facing Action Plan Yahir Ball, [facility] Note: To live and see improvement in her heart function and ability to have good quality of life documented as of this encounter Visit Diagnoses Not on filedocumented in this encounter Care Teams Casino Cashier Relationship Specialty Start Date End Date Oleg Trinidad MD [address] [place] [address] PCP - General Family Medicine 07/31/21 documented as of this encounter
--- OUTSIDE RECORDS SUMMARY | 2023-10-16 01:23 | XMS_ITS | Encounter Summary ---
Author Organization [facility] [place] [address] Care Team Providers Care Auto Electrician Name Role Phone Oleg Trinidad MD Primary Care Provider [phone] Encounter Details Date Type Department Care Team (Latest Contact Info) Description 02/21/2022 Travel Social History Tobacco Use Types Packs/Day [...] 10:30 AM EDT Appointment Non-[place] [phone] Lea Jay MD [facility] [place] [address] 10/17/2023 11:40 AM EDT Office Visit Cardiology at [address] [phone] Lea Jay MD [facility] [place] [address] 11/15/2023 10:00 AM EDT Hospital Encounter Non-[place]vasive [place] [phone] Arrived 11/21/2023 1:40 PM EDT Office Visit Cardiology at [address] [phone] Lea Hodges MD [facility] [place] [address] documented as of this encounter Goals Goal [...] on filedocumented in this encounter Care Teams Auto Electrician Relationship Specialty Start Date End Date Oleg Trinidad MD [address] [place] [address] PCP - General Family Medicine 07/31/21 documented as of this encounter
--- OUTSIDE RECORDS SUMMARY | 2023-10-16 01:23 | XMS_ITS | Encounter Summary ---
Author Organization [facility] Address [place] [address] Care Team Providers Care Machinist Outside Name Role Phone Oleg Trinidad MD Primary Care Provider [phone] Encounter Details Date Type Department Care Team (Late st Contact Info) Description 02/20/2023 Notes Only Care Management [facility] [place] [phone] Jeromy Ellsworth Social History Tobacco Use Types [...] encounter Progress Notes * Jeromy Ellsworth - 02/20/2023 2:12 PM EST I faxed the application for assistance with ____ENTRESTO___to [employer] . I will follow through once the direct sales representative program makes a decision. This is for the 2023 enrollment year. documented in this encounter Plan of Treatment Upcoming Encounters Date Type Department Care Team (Late st Contact Info) Description 10/17/2023 10:30 AM EDT Appointment Non-[place]vasive [place] [address] [place] [address] 10/17/2023 11:40 AM EDT Office Visit Cardiology at [address] [address] [place] [address] 11/15/2023 10:00 AM EDT Hospital Encounter Non-Invasive [place] [address] Arrived 11/21/2023 1:40 PM EDT Office Visit Cardiology at [address] [address] Lea Hodges MD [facility] [address] documented as of this encounter Goals Goal Patient Goal Type Associated Problems Recent Progress Patient-Stated? Author [facility] Home Medication Compliance and Understanding Patient Facing Action Plan Yahir Ball, [facility] Note: To live and see improvement in her heart function and ability to have good quality of life documented as of this encounter Visit Diagnoses Not on filedocumented in this encounter Care Teams Machinist Outside Relationship Specialty Start Date End Date Oleg Trinidad MD [address] [place] [address] PCP - General Family Medicine 07/31/21 documented as of this encounter
--- OUTSIDE RECORDS SUMMARY | 2023-10-16 01:23 | XMS_ITS | Encounter Summary ---
Author Organization [facility] Address [facility] [place] [address] Care Team Providers Care Pony Worker Name Role Phone Oleg Trinidad MD Primary Care Provider [phone] Encounter Details Date Type Department Care Team (Late st Contact Info) Description 01/31/2023 Notes Only Care Management [facility] [place] [phone] Jeromy Ellsworth Social History Tobacco Use Types [...] encounter Progress Notes * Jeromy Ellsworth - 01/31/2023 11:15 AM EST I faxed the application for assistance with ____jardiance___to [employer] . I will follow through once the insurance examiner program makes a decision. This is for the 2023 enrollment year. documented in this encounter Plan of Treatment Upcoming Encounters Date Type Department Care Team (Late st Contact Info) Description 10/17/2023 10:30 AM EDT Appointment Non[place] [address] [place] [address] 10/17/2023 11:40 AM EDT Office Visit Cardiology at [address] [address] [place] [address] 11/15/2023 10:00 AM EDT Hospital Encounter Non[place] [address] Arrived 11/21/2023 1:40 PM EDT Office Visit Cardiology at [address] [address] Lea Hodges MD [facility] [place] [address] documented as of this encounter Goals Goal Patient Goal Type Associated Problems Recent Progress Patient-Stated? Author [facility] Home Medication Compliance and Understanding Patient Facing Action Plan Yahir Ball, [facility] Note: To live and see improvement in her heart function and ability to have good quality of life documented as of this encounter Visit Diagnoses Not on filedocumented in this encounter Care Teams Pony Worker Relationship Specialty Start Date End Date Oleg Trinidad MD [address] [place] [address] PCP - General Family Medicine 07/31/21 documented as of this encounter
--- OUTSIDE RECORDS SUMMARY | 2023-10-16 01:23 | XMS_ITS | Encounter Summary ---
Author Organization [facility] [place] [address] Care Team Providers Care Greenhouse Worker Name Role Phone Oleg Trinidad MD Primary Care Provider [phone] Encounter Details Date Type Department Care Team (Latest Contact Info) Description 05/24/2022 10:00 AM EST - 05/24/2022 11:59 PM [facility] Hospital Encounter [place] [address] Discharge Disposition: Home Social History Tobacco Use [...] 10:30 AM EDT Appointment Non-[place] [address] Lea Jay MD [facility] [place] [address] 10/17/2023 11:40 AM EDT Office Visit Cardiology at [address] [address] Lea Jay MD [facility] [place] [address] 11/15/2023 10:00 AM EDT Hospital Encounter Non-Invasive Cardiology Lab [facility] [place] [address] Arrived 11/21/2023 1:40 PM EDT Office Visit Cardiology at [address] [phone] Lea Hodges MD [facility] [place] [address] documented as of this encounter Goals Goal [...] INTERROGATION REMOTE UP TO 90 DAYS Routine 03/27/2022 6:48 AM EST documented in this encounter Results * Cardiac Device Check - Remote (03/27/2022 6:48 AM EST) Anatomical Region Laterality Modality Other 03/27/2022 6:48 AM EST Steven Krishna MD IMPLANTABLE CARDIAC DEVICE documented in this encounter Visit Diagnoses Not on filedocumented in this encounter Care Teams Greenhouse Worker Relationship Specialty Start Date End Date Oleg Trinidad MD [address] [place] [address] PCP - General Family Medicine 07/31/21 documented as of this encounter
--- OUTSIDE RECORDS SUMMARY | 2023-10-16 01:23 | XMS_ITS | Encounter Summary ---
Author Organization [facility] [place] [address] Care Team Providers Care Commercial Interior Designer Name Role Phone Oleg Trinidad MD Primary Care Provider [phone] Encounter Details Date Type Department Care Team (Late st Contact Info) Description 02/21/2022 Notes [place] [phone] Isabel Santiago Social History Tobacco Use Types [...] encounter Progress Notes * Isabel Santiago - 02/21/2022 10:02 AM EST I placed a follow up phone call to the patient to make sure they received the application for assistance that [employer] mailed to them. The patient did not answer, a message was left requesting a call backwith our office's return phone number. documented in this encounter Plan of Treatment Upcoming Encounters Date Type Department Care Team (Late st Contact Info) Description 10/17/2023 10:30 AM EDT Appointment Non-Invasive Cardiology [place] [address] [place] [address] 10/17/2023 11:40 AM EDT Office Visit Cardiology at [address] [place] [address] [address] [place] [address] 11/15/2023 10:00 AM EDT Hospital Encounter Non-Invasive [place] [phone] Arrived 11/21/2023 1:40 PM EDT Office Visit Cardiology at [address] [place] [address] [address] Lea Hodges MD [facility] [place] [address] documented as of this encounter Goals Goal Patient Goal Type Associated Problems Recent Progress Patient-Stated? Author DH Home Medication Compliance and Understanding Patient Facing Action Plan Yahir Ball, [facility] Note: To live and see improvement in her heart function and ability to have good quality of life documented as of this encounter Visit Diagnoses Not on filedocumented in this encounter Care Teams Commercial Interior Designer Relationship Specialty Start Date End Date Oleg Trinidad MD [address] [place] [address] PCP - General Family Medicine 07/31/21 documented as of this encounter
--- OUTSIDE RECORDS SUMMARY | 2023-10-16 01:23 | XMS_ITS | Encounter Summary ---
Author Organization [facility] Address [facility] [place] [address] Care Team Providers Care Sensory Scientist Name Role Phone Oleg Trinidad MD Primary Care Provider Encounter Details Date Type Department Care Team (Late st Contact Info) Description 04/19/2022 [place] [phone] Isabel Santiago Social History Tobacco Use Types [...] Progress Notes * Isabel Santiago - 04/19/2022 10:04 AM EST Application Final Determination Application Sent to Program: 03/30/2022 Program Name: [employer] Medication: [employer] Program Phone #: Program Fax #: Enrollment End Date: 03/24/2023 Quantity Shipped: 90 day Supply Shipping Timeframe: 7-10 Business days Ships To: Patient documented in this encounter Plan of Treatment Upcoming Encounters Date Type Department Care Team (Late st Contact Info) Description 10/17/2023 10:30 AM EDT Appointment Non-Invasive [place] [phone] [place] [address] 10/17/2023 11:40 AM EDT Office Visit Cardiology at [address] [phone] [place] [address] 11/15/2023 10:00 AM EDT Hospital Encounter Non-Invasive [place] [address] Arrived 11/21/2023 1:40 PM EDT Office Visit Cardiology at [address] [phone] Lea Hodges MD [facility] [place] [address] documented as of this encounter Goals Goal Patient Goal Type Associated Problems Recent Progress Patient-Stated? Author DH Home Medication Compliance and Understanding Patient Facing Action Plan Yahir Ball, [facility] Note: To live and see improvement in her heart function and ability to have good quality of life documented as of this encounter Visit Diagnoses Not on filedocumented in this encounter Care Teams Sensory Scientist Relationship Specialty Start Date End Date Oleg Trinidad MD [address] [place] [address] PCP - General Family Medicine 07/31/21 documented as of this encounter
--- OUTSIDE RECORDS SUMMARY | 2023-10-16 01:23 | XMS_ITS | Encounter Summary ---
Author Organization [facility] [place] [address] Care Team Providers Care Narcotics Detective Name Role Phone Oleg Trinidad MD Primary Care Provider [phone] Reason for Visit * Consultation (Routine) - Authorized Specialty Diagnoses / Procedures Referred By Shyam agarwal Referred To Contact Vascular Surgery Diagnoses Chronic total occlusion of artery of the extremities ROUTINE, MD/ЕКАТЕРИНА, NO NEW STUDIES RT SUBCLAVIAN ARTERY IS OCCLUDED BASED ON DOPPLER US Oleg Trinidad MD [address] [place] [address] [facility] Vascular Surg [address] [place] [address] Referral ID Status Reason Start Date Expiration Date Visits Requested Visits Authorized [id number] Authorized Consult, Test & Treat PCP Updated and/or Approved 3 02/21/2024 6 6 Encounter Details Date Type Department Care Team (Late st Contact Info) Description 03/22/2023 8:00 AM EST Office Visit [place] [address] Irena Hough APRN [facility] [place] [address] Right subclavian artery occlusion Social History Tobacco Use Types Packs/Day Years [...] Sign Reading Time Taken Comments Blood Pressure 113/89 03/22/2023 8:12 AM EST Pulse - - Temperature - - Respiratory Rate - - Oxygen Saturation - - Inhaled Oxygen Concentration - - Weight 67.1 kg (148 lb) 03/22/2023 8:10 AM EST Height 162.6 cm (5' 4) 03/22/2023 8:10 AM EST Body Mass Index 25.4 03/22/2023 8:10 AM EST documented in this encounter Progress Notes * Irena Hough, CERTIFIED COURT/MEDICAL INTERPRETER - 03/22/2023 8:00 AM EST Vascular New Patient This is a new patient to the practice who is being evaluated for R subclavian occlusion and was referred by Oleg Trinidad MD. HPI: 67 y.o. female with PMH: HFrEF, ASCVD s/p PCI, HTN, HLD, pre-diabetes, chronic resp failure onhome O2, gout. Ms. Esparza presents to the clinic today with her two daughters and her granddaughter for evaluation of subclavian artery stenosis noted on OSH ultrasound after nurses noticed BUE BP discrepancies. She has no symptoms: no RUE pain, numbness, tingling, dizziness, change in color or temperature. She has always had a low BP on the RUE and says no one ever investigated it; sometimes it has run in the70s systolic. PMHx: No past medical history on file. PSxHx: No past surgical history on file. Family Hx: No family history on file. Social Hx: Social History Tobacco Use Smoking status: Some Days Packs/day: 0.25 Years: 50.00 Additional pack years: 0.00 Total pack years: 12.50 Types: Cigarettes Smokeless tobacco: Never Tobacco comments: 0.25-0.5 PPD Substance Use Topics Alcohol use: No Comment: none in last 3 months Medications: Medications 12/26/22 1356 Medication Sig Taking? furosemide (Lasix) 40 mg tablet Take 1 tablet by mouth daily. sacubitriL-valsartan (Entresto) 24-26 mg Tablet tablet Take 1 tablet by mouth 2 times daily. metFORMIN (Glucophage) 1,000 mg Tablet Take 1 tablet by mouth 2 times daily (with meals). traMADoL (Ultram) 50 mg Tablet Take 50 mg by mouth every 12 hours as needed for Pain (taking only 1tab every morning). empagliflozin (Jardiance) 10 mg Tablet Take 1 tablet by mouth daily. naproxen sodium (ALEVE) 220 mg Capsule Take by mouth. colchicine (Colcrys) 0.6 mg Tablet Take 0.6 mg by mouth daily as needed. acetaminophen (Tylenol) 325 mg Tablet 1 tablet orally as needed EPINEPHrine 0.3 mg/0.3 mL Auto-Injector Inject 0.3 mg into the muscle. atorvastatin (Lipitor) 80 mg Tablet Take 1 tablet by mouth every evening. famotidine (Pepcid) 20 mg Tablet Take 1 tablet by mouth 2 times daily. levothyroxine (Synthroid) 50 mcg Tablet Take 1 tablet by mouth daily. magnesium oxide (Mag-Ox) 400 mg (241.3 mg magnesium) Tablet Take 1 tablet by mouth 2 times daily. metoprolol succinate XL (Toprol-XL) 100 mg Tablet Sustained Release 24 hr Take 1 tablet by mouth daily. allopurinoL (Zyloprim) 100 mg Tablet Take 100 mg by mouth as needed (for Gout attacks). ergocalciferoL, vitamin D2, (vitamin D2) 50,000 unit Capsule Take 50,000 Units by mouth once a week. nitroGLYcerin (NITROSTAT) 0.[address] 1 tablet under the tongue daily as needed for Chest pain. aspirin 81 mg EC tablet Take 81 mg by mouth daily. multivitamin (THERAGRAN) tablet Take 1 tablet by mouth daily. Allergies: Allergies Allergen Reactions Hornet Venom Anaphylaxis Lisinopril Other (See Comments) cough Other reaction(s): Cough Venom-Honey Bee Review of Systems: All other ROS negative except as noted in HPI. Physical Exam: Vitals: There were no vitals filed for this visit. General: NAD, appears well Neuro: Alert and oriented, motor sensory grossly intact Lungs: CTA Heart: RRR Abd: Soft, NT, ND, no palpable pulsatile masses Extremity - [place], warm, no ulceration, brisk capillary refill, no edema Vascular: Weak R radial pulse 1/2 Labs/Studies: From [facility] in chart: US Upper arterial duplex right with physiologic test Impressions: The right distal subclavian and right axillary arteries were occluded with reconstitution of alisa within the proximal brachial artery. Segmental pressures and waveforms demonstrate evidence of moderate arterial insufficiency within the right upper extremity and no evidence of arterial insufficiency within the left lower extremity. Assessment/Plan: 67 y.o. female with PMH: HFrEF, ASCVD s/p PCI, HTN, HLD, pre- diabetes, chronic resp failure on home O2, gout. # R Subclavian artery occlusion Ms. Esparza is a pleasant woman who brought her family members to our appointment today, all whom are very supportive. She was shown to have a R Subclavian artery occlusion noted at [facility]. Sheis asymptomatic with warm, pink RUE. At this time, there is no indication for intervention. Ms. Esparza and her family asked questions about next steps and I outlined warning signs to watch out for: pain, numbness, tingling, change in color or temperature, or dizziness. We discussed that her LUE isher accurate blood pressure and to instruct healthcare professional to use the LUE for all future appointments. Patient amenable to the following plan: Use left arm for all future blood pressure measurements. Contact healthcare professional or go to the nearest ED if you notice the following signs: pain, numbness, tingling, change in color or temperature, or dizziness. We appreciate the referral and are happy to see this patient again in the future as needs arise. Ms. Esparza does not currently need follow up with our clinic. She may contact us if she has any questions or concerns. Irena Hough APRN Department of Vascular Surgery documented in this encounter Plan of Treatment Upcoming Encounters Date Type Department Care Team (Late st Contact Info) Description 10/17/2023 10:30 AM EDT Appointment Non-Invasive [place] [address] Lea Jay MD [facility] [place] [address] 10/17/2023 11:40 AM EDT Office Visit Cardiology at [address] [phone] Lea Jay MD [facility] [place] [address] 11/15/2023 10:00 AM EDT Hospital Encounter Non-Invasive [place] [phone] Arrived 11/21/2023 1:40 PM EDT Office Visit Cardiology at [address] [phone] Lea Hodges MD [facility] [place] [address] Scheduled Referrals Name Type Priority Associated Diagnoses Orde r Schedule Referral to Vascular Surgery Outpatient Referral Routine Chronic total occlusion of artery of the extremities Ordered: 02/26/2023 documented as of this encounter Goals Goal Patient Goal Type Associated Problems Recent Progress Patient-Stated? Author DH Home Medication Compliance and Understanding Patient Facing Action Plan No Yahir Mcallister, [facility] Note: To live and see improvement in her heart function and ability to have good quality of life documented as of this encounter Visit Diagnoses Diagnosis Right subclavian artery occlusion Embolism and thrombosis of unspecified artery documented in this encounter Care Teams Narcotics Detective Relationship Specialty Start Date End Date Oleg Trinidad MD [address] [place] [address] PCP - General Family Medicine 07/31/21 documented as of this encounter
--- OUTSIDE RECORDS SUMMARY | 2023-10-16 01:23 | XMS_ITS | Encounter Summary ---
[place] [address] Care Team Providers Care Flying Squad Worker Name Role Phone Oleg Trinidad MD Primary Care Provider [phone] Reason for Visit * Reason Onset Date Comments Questions 08/15/2022 Handicap placard ? Encounter Details Date Type Department Care Team (Late Contact Info) Description 08/15/2022 Telephone Cardiology at [address] [address] Chela Berry RN Questions (Handicap placard?) Social History Tobacco Use Types Packs/Day Years [...] Miscellaneous Notes * Telephone Encounter - Chela Berry RN - 08/15/2022 4:53 PM EDT Pt calling to see how she can get a handicap placard for her car. Advised to contact her PCP. He should be able to assist with filling out the application. documented in this encounter Plan of Treatment Upcoming Encounters Date Type Department Care Team (Late Contact Info) Description 10/17/2023 10:30 AM EDT Appointment [place] [phone] [place] [address] 10/17/2023 11:40 AM EDT Office Visit Cardiology at [address] [phone] [place] [address] 11/15/2023 10:00 AM EDT Hospital Encounter Non[place] [phone] Arrived 11/21/2023 1:40 PM EDT Office Visit Cardiology at [address] [phone] Lea Hodges MD [facility] [place] [address] documented as of this encounter Goals Goal Patient Goal Type Associated Problems Recent Progress Patient-Stated? Author DH Home Medication Compliance and Understanding Patient Facing Action Plan No Yahir Mcallister, [facility] Note: To live and see improvement in her heart function and ability to have good quality of life documented as of this encounter Visit Diagnoses Not on filedocumented in this encounter Care Teams Flying Squad Worker Relationship Specialty Start Date End Date Oleg Trinidad MD [address] [place] [address] PCP - General Family Medicine 07/31/21 documented as of this encounter
--- OUTSIDE RECORDS SUMMARY | 2023-10-16 01:23 | XMS_ITS | Encounter Summary ---
[place] [address] Care Team Providers Care Talend Etl Developer Name Role Phone Oleg Trinidad MD Primary Care Provider [phone] Reason for Visit * Reason Onset Date Comments Questions 12/20/2022 How can help her to get the home oxygen order renewed? Encounter Details Date Type Department Care Team (Late st Contact Info) Description 12/20/2022 Telephone Cardiology at [address] [phone] Chela Berry, RN Questions (How can help her to get the home oxygen order renewed?) Social History Tobacco Use Types Packs/Day Years [...] Telephone Encounter - Chela Berry, RN - 12/20/2022 3:30 PM EDT Pt calling to report that she got a call from her home oxygen supplier ([employer] phone [phone]) requesting they get a certification renewal order for the home oxygen. According to our records the oxygen was originally ordered in 2020 upon discharge from an inpatientstay. There does not seem to be any records of renewals in pt's EMR. Per Dr Jay's [facility] note in August 2022, pt using for emphysema. Pt encouraged to contact her PC to assist with the renewal as she has had a F2F visit with in the last 30 days. Call placed to Na at [facility] with the above information. Given the name of the pt's PCP phone and fax numbers so they can send the CMN form to his office. Pt aware and will f/u w/her PCP. documented in this encounter Plan of Treatment Upcoming Encounters Date Type Department Care Team (Late st Contact Info) Description 10/17/2023 10:30 AM EDT Appointment Non-Invasive [place] [phone] [place] [address] 10/17/2023 11:40 AM EDT Office Visit Cardiology at [address] [phone] [place] [address] 11/15/2023 10:00 AM EDT Hospital Encounter Non-Invasive [place] [phone] Arrived 11/21/2023 1:40 PM EDT Office Visit Cardiology at [address] [phone] Lea Hodges MD [facility] [place] [address] documented as of this encounter Goals Goal Patient Goal Type Associated Problems Recent Progress Patient-Stated? Author DH [place] Medication Compliance and Understanding Patient Facing Action Plan Yahir Ball, [facility] Note: To live and see improvement in her heart function and ability to have good quality of life documented as of this encounter Visit Diagnoses Not on filedocumented in this encounter Care Teams Talend Etl Developer Relationship Specialty Start Date End Date Oleg Trinidad MD [address] [place] [address] PCP - General Family Medicine 07/31/21 documented as of this encounter
--- OUTSIDE RECORDS SUMMARY | 2023-10-16 01:23 | XMS_ITS | Encounter Summary ---
Author [place] [address] Care Team Providers Care Packaging Sales Representative Name Role Phone Oleg Trinidad MD Primary Care Provider [phone] Encounter Details Date Type Department Care Team (Late st Contact Info) Description 03/01/2023 [place] [address] Jeromy Ellsworth Social History Tobacco Use Types [...] encounter Progress Notes * Jeromy Ellsworth - 03/01/2023 1:33 PM ESTSummary: MAP - ENTRESTO APPROVED FOR 2023 Received fax from [employer] that patient is approved to receive ENTRESTO for free through their patient assistance program through 03/24/2024 documented in this encounter Plan of Treatment Upcoming Encounters Date Type Department Care Team (Late st Contact Info) Description 10/17/2023 10:30 AM EDT Appointment Non-Invasive [place] [address] Lea Jay MD [facility] [place] [address] 10/17/2023 11:40 AM EDT Office Visit Cardiology at [address] [phone] [place] [address] 11/15/2023 10:00 AM EDT Hospital Encounter Non-Invasive [place] [phone] Arrived 11/21/2023 1:40 PM EDT Office Visit Cardiology at [address] [phone] Lea Hodges MD [facility] [place] [address] documented as of this encounter Goals Goal [...] on filedocumented in this encounter Care Teams Packaging Sales Representative Relationship Specialty Start Date End Date Oleg Trinidad MD [address] [place] [address] PCP - General Family Medicine 07/31/21 documented as of this encounter
--- OUTSIDE RECORDS SUMMARY | 2023-10-16 01:24 | XMS_ITS | Encounter Summary ---
Author Organization [facility] [place] [address] Care Team Providers Care Dumpster Operator Name Role Phone Oleg Trinidad MD Primary Care Provider [phone] Encounter Details Date Type Department Care Team (Late st Contact Info) Description 11/21/2021 Orders Only Cardiology at [address] [phone] Julissa Lomas APRN [facility] [place] [address] Chronic systolic (congestive) heart failure; HFrEF (heart failure with reduced ejection fraction) Social History Tobacco Use Types Packs/Day Years Used Date Smoking Tobacco: Some Days Cigarettes 0.3 50 Started: 02/21/1971; Last attempted to quit: 02/21/2021 Smokeless Tobacco: Never Alcohol Use Standard Drinks/Week Comments No 0 [...] 10:30 AM EDT Appointment Non-[place]vasive [place] [phone] [place] [address] 10/17/2023 11:40 AM EDT Office Visit Cardiology at [address] [phone] [place] [address] 11/15/2023 10:00 AM EDT Hospital Encounter Non-[place]vasive [place] [phone] Arrived 11/21/2023 1:40 PM EDT Office Visit Cardiology at [address] [phone] Lea Hodges MD [facility] [place] [address] documented as of this encounter Goals Goal Patient Goal Type Associated Problems Recent Progress Patient-Stated? Author [facility] Medication Compliance and Understanding Patient Facing Action Plan No Yahir Mcallister, [facility] Note: To live and see improvement in her heart function and ability to have good quality of life documented as of this encounter Visit Diagnoses Diagnosis Chronic systolic (congestive) heart failure HFrEF (heart failure with reduced ejection fraction) documented in this encounter Care Teams Dumpster Operator Relationship Specialty Start Date End Date Oleg Trinidad MD [address] [place] [address] PCP - General Family Medicine 07/31/21 documented as of this encounter
--- OUTSIDE RECORDS SUMMARY | 2023-10-16 01:24 | XMS_ITS | Encounter Summary ---
[place] [address] Care Team Providers Care Inspector Fabric Name Role Phone Oleg Trinidad MD Primary Care Provider [phone] Encounter Details Date Type Department Care Team (Late st Contact Info) Description 08/01/2021 Notes [place] [address] Jeromy Ellsworth Social History Tobacco [...] encounter Progress Notes * Jeromy Ellsworth - 08/01/2021 10:43 AM EDT I faxed the application for assistance with Jardiance to [email or web address]. I will follow through once the appliance service supervisor program makes a decision. documented in this encounter Plan of Treatment Upcoming Encounters Date Type Department Care Team (Late st Contact Info) Description 10/17/2023 10:30 AM EDT Appointment Non-[place] [address] Lea Jay MD [facility] [place] [address] 10/17/2023 11:40 AM EDT Office Visit Cardiology at [address] [phone] [place] [address] 11/15/2023 10:00 AM EDT Hospital Encounter Non-[place]vasive [place] [phone] Arrived 11/21/2023 1:40 PM EDT Office Visit Cardiology at [address] [phone] Lea Hodges MD [facility] [place] [address] documented as of this encounter Goals Goal Patient Goal Type Associated Problems Recent Progress Patient-Stated? Author DH Home Medication Compliance and Understanding Patient Facing Action Plan Yahir Ball, [facility] Note: To live and see improvement in her heart function and ability to have good quality of life documented as of this encounter Visit Diagnoses Not on filedocumented in this encounter Care Teams Inspector Fabric Relationship Specialty Start Date End Date Oleg Trinidad MD [address] [place] [address] PCP - General Family Medicine 07/31/21 documented as of this encounter
--- OUTSIDE RECORDS SUMMARY | 2023-10-16 01:24 | XMS_ITS | Encounter Summary ---
Author Organization [facility] [place] [address] Care Team Providers Care Direct Support Worker Name Role Phone Oleg Trinidad MD Primary Care Provider [phone] Reason for Referral * Diagnostic Test (Routine) - Closed Specialty Diagnoses / Procedures Referred By Contac t Referred To Contact Cardiology Diagnoses Chronic systolic (congestive) heart failure Cardiomyopathy, unspecified type Procedures Echocardiogram Transthoracic Mylene Ch PA [facility] [place] [address] [facility] [place] [address] Referral ID Status Reason Start Date Expiration Date V isits Requested Visits Authorized [id number] Closed Specialty Service Requested 05/26/2021 05/26/2022 1 1 Reason for Visit * Diagnostic Test (Routine) - Closed Specialty Diagnoses / Procedures Referred By Contac t Referred To Contact Cardiology Diagnoses Chronic systolic (congestive) heart failure Cardiomyopathy, unspecified type Procedures Echocardiogram Transthoracic Mylene Ch PA [facility] [place] [address] [facility] [place] [address] Referral ID Status Reason Start Date Expiration Date V isits Requested Visits Authorized [id number] Closed Specialty Service Requested 05/26/2021 05/26/2022 1 1 Encounter Details Date Type Department Care Team (Latest Contact Info) Description 07/31/2021 6:56 AM EDT - 07/31/2021 11:59 PM EDT Hospital Encounter Non-Invasive Cardiology [facility] [address] Giana Wiggins MD [facility] [place] [address] Chronic systolic (congestive) heart failure; Cardiomyopathy, unspecified type Discharge Disposition: Home Social History Tobacco Use [...] Sig Dispensed Refills Start Date End Date empagliflozin (Jardiance) 10 mg Tablet Take 1 [...] mouth 2 times daily. 180 tablet 3 05/17/2021 02/09/2022 spironolactone (Aldactone) 25 mg Tablet Take 0.5 tablets by mouth daily. 90 tablet 3 02/27/2021 03/15/2022 metFORMIN (GLUCOPHAGE) 1,000 mg Tablet Take 1,000 mg by mouth 2 times daily (with meals). 12/13/2021 documented as of this encounter Plan of Treatment Upcoming Encounters Date Type Department Care Team (Late st Contact Info) Description 10/17/2023 10:30 AM EDT Appointment Non[place] [address] [place] [address] 10/17/2023 11:40 AM EDT Office Visit Cardiology at [address] [address] [place] [address] 11/15/2023 10:00 AM EDT Hospital Encounter Non[place] [address] Arrived 11/21/2023 1:40 PM EDT Office Visit Cardiology at [address] [place] [address] Lea Hodges MD [facility] [place] [address] documented as of this encounter Goals Goal Patient Goal Type Associated Problems Recent Progress Patient-Stated? Author [facility] Medication Compliance and Understanding Patient Facing Action Plan No Yahir Mcallister, [facility] Note: To live and see improvement in her heart function and ability to have good quality of life documented as of this encounter Procedures Procedure Name Priority Date/Time Associated Diagnosis Comments ECHO LMTD W/O CONTRAST W LMTD SPEC DOPP COLOR DOPP Routine 07/31/2021 8:05 AM EDT Chronic systolic (congestive) heart failure Cardiomyopathy, unspecified type documented in this encounter Results * ECHO LMTD W/O CONTRAST W LMTD SPEC DOPP COLOR DOPP (07/31/2021 8:05 AM EDT) Anatomical Region Laterality Modality Other 07/31/2021 7:11 AM EDT Narrative 07/31/2021 8:36 AM EDT ?[facility] ?[address] ? [place] [address] ?Voice: ?Fax: ? Echocardiogram Report Name: TAMMY STOKES ?Study Date: 07/31/2021 07:11 AMBP: 120/69 mmHg ? Patient Location: 4A : 1955 ? Height: 64 in ? Account: [id number] Age: 65 yrs ? Weight: 148 lb Gender: Female ?BSA: 1.7 m2 Ordering Physician: GIANA WIGGINS Referring Physician: MYLENE CH Performed By: GITA Shankar Reason For Study: Chronic systolic heart failure, Cardiomyopathy Exam Location: [facility]. Interpretation Summary Compared to the prior study 02/22/21 the left ventricle remains severely diliated with severely reduced global function and elevated filling pressures. The right ventricle function has improved to low-normal. There is less mitral regurgitation. See report for detailed findings. Procedure Limited - 74504. Doppler - 74921. Color Doppler - 43158. 3D - 42153. Left ventricular strain - 0399T. Satisfactory quality. There is normal sinus rhythm. Left Ventricle Left ventricle is severely dilated. Wall thickness is normal. Left ventricular systolic function is severely reduced. The left ventricular ejection fraction is 24% by Guzman's biplane. The left ventricular ejection fraction is 24% by 3D volumetric assessment. Global longitudinal strain is measured at -8.2 %. (GE). Severe global hypokinesis. Right Ventricle The right ventricle is of normal size. Right ventricular systolic function is normal. Left Atrium The left atrium is mildly dilated. Right Atrium The right atrium is normal. Aortic Valve The aortic valve is probably trileaflet. There is no aortic stenosis. There is trace aortic regurgitation. Mitral Valve Mild thickening of the mitral leaflets. There is no mitral stenosis. There is moderate mitral regurgitation. Blunted systolic flow in the pulmonary veins suggests significant mitral regurgitation. Tricuspid Valve The tricuspid valve is structurally normal. There is no tricuspid stenosis. There is trace tricuspid regurgitation. Great Arteries The aortic root is of normal size. No abnormalities are identified. The ascending aorta is mildly dilated. The maximum diameter of the proximal ascending aorta is 3.6 cm. Venous Inferior vena cava is normal in size. Inferior vena cava collapse greater than 50% with respiration. Pericardium/Pleural A pericardial fat pad is present. There is a small pericardial effusion. Hemodynamics Pulmonary artery hypertension could not be assessed due to inadequate tricuspid regurgitation jet. Left ventricular filling pressure is increased. There is Grade II LV diastolic dysfunction (abnormal relaxation with elevated left ventricular filling pressure). Ejection Fraction ?2D Measurements ? Volumes 4D EF: 24.1 % ? IVSd: 0.85 cm ?LA Volume Index: LV Biplane EF: 23.7 % ? LVIDd: 7.8 cm ?38.2 ml/m2 ?LVIDs: 7.7 cm ?LVPWd: 1.0 cm ?EDV Biplane: 216.1 ml ?LV mass(C)d: 359.2 grams ? EDV Biplane Index: 125.4 ? ESV Biplane: 164.9 ml ?LV mass(C)dI: 208.5 grams/m2 ?? ESV Biplane Index: 95.7 ?Ao root diam: 3.2 cm ? 3D ESV: 148.2 ml ?Ao root diam index: 1.8 ?3D EDV: 195.2 ml ?asc Aorta Diam: 3.6 cm ? 3D EDV Index: 113.3 ?LVOT diam: 2.1 cm ?3D ESV Index: 86.0 ?TAPSE_phl: 1.9 cm ?SV(LVOT): 66.9 ml ? LV Stroke Volume: 66.9 ml ? SI(LVOT): 38.9 ml/m2 Doppler ?3D/Strain/TomTec MV E max brock: ? LV GLS (S3P): -8.2 % 101.6 cm/sec MV A max brock: 121.8 cm/sec MV E/A: 0.83 MV dec time: 0.13 sec Lat Peak E' Brock: 4.0 cm/sec E/ e' (lat): 25.1 Med Peak E' Brock: 3.7 cm/sec E/e' (med): 27.5 E/e' Average: 26.3 MR Regurgitant Volume: 19.4 ml I ?WMSI = 2.00 ? % Normal = 0 ?There is diffuse ?hypokinesis. ?Segments ??Size X - Cannot ?? 1 - Normal ?? 2 - ? 3 - Akinetic 4 - ?1-2 ? small Interpret ? Hypokinetic ?Dyskinetic ?? 3-5 ? moderate 5 - ? 6-14 ?large Aneurysmal ?15-16 ?? diffuse Procedure Note Jevon Rossi MD - 07/31/2021 [facility] [place] [address] Voice: Fax: Echocardiogram Report Name: TAMMY STOKES Study Date: 207:11 AMBP: 120/69 mmHg Patient Location: : 1955 Height: 64 in Account: [id number] Age: 65 yrs Weight: 148 lb Gender: Female BSA: 1.7 m2 Ordering Physician: GIANA WIGGINS Referring Physician: MYLENE CH Performed By: GITA Shankar Reason For Study: Chronic systolic heart failure, Cardiomyopathy Exam Location: [facility]. Interpretation Summary Compared to the prior study 02/22/21 the left ventricle remains severelydiliated with severely reduced global function and elevated filling pressures. Theright ventricle function has improved to low-normal. There is less mitralregurgitation. See report for detailed findings. Procedure Limited - 75067. Doppler - 76323. Color Doppler - 32672. 3D - 24716.Left ventricular strain - 0399T. Satisfactory quality. There is normal sinusrhythm. Left Ventricle Left ventricle is severely dilated. Wall thickness is normal. Leftventricular systolic function is severely reduced. The left ventricular ejectionfraction is 24% by Guzman's biplane. The left ventricular ejection fraction is 24% by3D volumetric assessment. Global longitudinal strain is measured at -8.2 %.(GE). Severe global hypokinesis. Right Ventricle The right ventricle is of normal size. Right ventricular systolic functionis normal. Left Atrium The left atrium is mildly dilated. Right Atrium The right atrium is normal. Aortic Valve The aortic valve is probably trileaflet. There is no aortic stenosis.There is trace aortic regurgitation. Mitral Valve Mild thickening of the mitral leaflets. There is no mitral stenosis. Thereis moderate mitral regurgitation. Blunted systolic flow in the pulmonaryveins suggests significant mitral regurgitation. Tricuspid Valve The tricuspid valve is structurally normal. There is no tricuspidstenosis. There is trace tricuspid regurgitation. Great Arteries The aortic root is of normal size. No abnormalities are identified. Theascending aorta is mildly dilated. The maximum diameter of the proximal ascendingaorta is 3.6 cm. Venous Inferior vena cava is normal in size. Inferior vena cava collapse greaterthan 50% with respiration. Pericardium/Pleural A pericardial fat pad is present. There is a small pericardial effusion. Hemodynamics Pulmonary artery hypertension could not be assessed due to inadequatetricuspid regurgitation jet. Left ventricular filling pressure is increased. Thereis Grade II LV diastolic dysfunction (abnormal relaxation with elevated leftventricular filling pressure). Ejection Fraction 2D Measurements Volumes 4D EF: 24.1 % IVSd: 0.85 cm LA VolumeIndex: LV Biplane EF: 23.7 % LVIDd: 7.8 cm 38.2 ml/m2 LVIDs: 7.7 cm LVPWd: 1.0 cm EDV Biplane:216.1 ml LV mass(C)d: 359.2 grams EDV BiplaneIndex: 125.4 ESV Biplane:164.9 ml LV mass(C)dI: 208.5 grams/m2 ESV BiplaneIndex: 95.7 Ao root diam: 3.2 cm 3D ESV: 148.2ml Ao root diam index: 1.8 3D EDV: 195.2ml asc Aorta Diam: 3.6 cm 3D EDV Index:113.3 LVOT diam: 2.1 cm 3D ESV Index:86.0 TAPSE_phl: 1.9 cm SV(LVOT): 66.9ml LV Stroke Volume:66.9 ml SI(LVOT): 38.9ml/m2 Doppler 3D/Strain/TomTec MV E max brock: LV GLS (S3P): -8.2 % 101.6 cm/sec MV A max brock: 121.8 cm/sec MV E/A: 0.83 MV dec time: 0.13 sec Lat Peak E' Brock: 4.0 cm/sec E/ e' (lat): 25.1 Med Peak E' Brock: 3.7 cm/sec E/e' (med): 27.5 E/e' Average: 26.3 MR Regurgitant Volume: 19.4 ml I WMSI = 2.00 % Normal = 0 There isdiffuse hypokinesis. SegmentsSize X - Cannot 1 - Normal 2 - 3 - Akinetic 4 - 1-2small Interpret Hypokinetic Dyskinetic 3-5moderate 5 - 6-14large Aneurysmal 15-16diffuse Giana Borrero MD ECHO ORDERAB LES documented in this encounter Visit Diagnoses Diagnosis Chronic systolic (congestive) heart failure Cardiomyopathy, unspecified type documented in this encounter Care Teams Direct Support Worker Relationship Specialty Start Date End Date Oleg Trinidad MD [address] [place] [address] PCP - General Family Medicine 07/31/21 documented as of this encounter
--- OUTSIDE RECORDS SUMMARY | 2023-10-16 01:24 | XMS_ITS | Encounter Summary ---
Author Organization [facility] Address [facility] [place] [address] Care Team Providers Care Ball Winder Name Role Phone Oleg Trinidad MD Primary Care Provider [phone] Encounter Details Date Type Department Care Team (Late st Contact Info) Description 01/22/2022 Notes Only Care Management [facility] [place] [phone] Jeromy Ellsworth Social History Tobacco Use Types [...] encounter Progress Notes * Jeromy Ellsworth - 01/22/2022 3:35 PM EDT I sent a letter and the re-enrollment application for assistance with [employer] to the patient for them to complete, sign and return to the Medication Assistance Program. The [facility] office will follow upwith the patient in 5 business days to see if the patient has received the application and if they have any questions. This is for the 2022 enrollment year. documented in this encounter Plan of Treatment Upcoming Encounters Date Type Department Care Team (Late st Contact Info) Description 10/17/2023 10:30 AM EDT Appointment Non-Invasive [place] [phone] [place] [address] 10/17/2023 11:40 AM EDT Office Visit Cardiology at [address] [address] [place] [address] 11/15/2023 10:00 AM EDT Hospital Encounter Non-Invasive [place] [phone] Arrived 11/21/2023 1:40 PM EDT Office Visit Cardiology at [address] [address] Lea Hodges MD [facility] [place] [address] documented as of this encounter Goals Goal [...] on filedocumented in this encounter Care Teams Ball Winder Relationship Specialty Start Date End Date Oleg Trinidad MD [address] [place] [address] PCP - General Family Medicine 07/31/21 documented as of this encounter
--- OUTSIDE RECORDS SUMMARY | 2023-10-16 01:24 | XMS_ITS | Encounter Summary ---
Author Organization [facility] [place] [address] Care Team Providers Care Housing Director Name Role Phone Oleg Trinidad MD Primary Care Provider [phone] Reason for Referral * Consultation (Routine) - Closed Specialty Diagnoses / Procedures Referred By Contact Referred To Contact Electrophysiology / Cardiology Diagnoses HFrEF (heart failure with reduced ejection fraction) ICD Alisa De Leon MD [facility] [place] [address] [facility] Cardiology [address] [place] [phone] Referral ID Status Reason Start Date Expiration Date V isits Requested Visits Authorized [id number] Closed Consult, Test & Treat 07/31/2021 07/31/2022 1 1 Encounter Details Date Type Department Care Team (Late st Contact Info) Description 07/31/2021 9:00 AM EDT Office Visit Cardiology at [address] [phone] Alisa De Leon MD [facility] [place] [address] HFrEF (heart failure with reduced ejection fraction); Hyperglycemia Social History Tobacco Use Types Packs/Day [...] Sign Reading Time Taken Comments Blood Pressure 115/69 07/31/2021 8:49 AM EDT Pulse 86 07/31/2021 8:49 AM EDT Temperature - - Respiratory Rate - - Oxygen Saturation 97% 07/31/2021 8:49 AM EDT Inhaled Oxygen Concentration - - Weight 65.9 kg (145 lb 3.2 oz) 07/31/2021 8:49 A M EDT Height 162.6 cm (5' 4) 07/31/2021 8:49 AM EDT Body Mass Index 24.92 07/31/2021 8:49 AM EDT documented in this encounter Progress Notes * Alisa De Leon MD - 07/31/2021 9:00 AM EDT [facility] Note Name: Stacy Esparza Date: 07/31/2021 History of Present Illness Stacy Esparza is a 65 y.o. female with a past medical history [...] Internal Events Since the last visit with SHEREE Carrero on 05/16: ??? Stopped torsemide, started furosemide ??? Entresto increased to 1 tab BID ??? Moved this weekend, likes her new place ? ? Has cut down smoking 75% on smoking - <1 pack/day ??? No orthopnea, PND or LE edema ??? Weight stable ~ 140's ??? No dizziness, LH, palps, presyncope or syncope ??? Low back pain limits mobility ??? Going to ask PCP about tramadol vs. gabapentin Review of Systems All other 12 point review of systems negative except as noted above. Past Medical History Patient Active Problem List Diagnosis ??? CAD (coronary artery disease) ??? Other primary cardiomyopathies ??? Alcohol abuse, unspecified ??? Hyperpotassemia ??? Cardiogenic shock ??? Unspecified hypothyroidism Full Medication List Outpatient Medications Marked as Taking for the 07/31/21 encounter (Office Visit) with Alisa De Leon MD Medication Sig Dispense Refill ??? sacubitriL-valsartan (Entresto) 24-26 mg Tablet tablet Take 1 tablet by mouth 2 times daily. (Patient taking differently: Take 0.5 tablets by mouth 2 times daily.) 180 tablet 3 ??? empagliflozin (Jardiance) 10 mg Tablet Take 1 tablet by mouth daily. 30 tablet 11 ??? naproxen sodium (ALEVE) 220 mg Capsule Take by mouth. ??? colchicine (Colcrys) 0.6 mg Tablet Take 0.6 mg by mouth Daily. ??? acetaminophen (Tylenol) 325 mg Tablet 1 [...] Units by mouth once a week. ??? metFORMIN (GLUCOPHAGE) 1,000 mg Tablet Take 1,000 mg by mouth 2 times daily (with meals). ??? nitroGLYcerin (NITROSTAT) 0.4 mg SL tablet [...] TOB: Social History Tobacco Use Smoking Status Current Some Day Smoker ??? Packs/day: 0.25 ??? Years: 50.00 ??? Pack years: 12.50 ??? Types: Cigarettes ??? Last attempt to quit: 02/21/2021 ??? Years since quittin.4 Smokeless Tobacco Never Used ETOH: Social History Substance and Sexual Activity Alcohol Use No Comment: none in last 3 months 07/31/2021 Illicits: Social History Substance and Sexual Activity Drug Use No FHx: No family history on file. Physical Exam Vitals: 07/31/21 0849 BP: 115/69 Pulse: 86 SpO2: 97% Weight: 65.9 kg (145 lb 3.2 oz) Height: 162.6 cm (5' 4) General: NAD Neck: JVP not elevated Cardiac: Regular without significant murmurs rubs or gallops Lungs: CTAB Abdomen: Soft NT/ND Extremities: WWP w/ no significant lower extremity edema Relevant Labs Potassium 5.0, creatinine 1.04 proBNP 1550 from 1762 LDL 30, total cholesterol 88 Relevant CardiacStudies TTE 08/13: Left ventricle is [...] LAD 50% mid lesion, mild LCX disease, [employer] of the RCA, LVEDP 45 Assessment/Plan: In summary, Stacy Esparza is doing well from a symptom standpoint. She is NYHA class II-III. She ispredominantly limited by low back pain. She is interested in trying tramadol or gabapentin. I told her I there would be reasonable from a heart perspective but that she should talk to her primary care physician. I would prefer either instead of a nonsteroidal anti-inflammatory. She continues to not require diuretic. We will continue her on metoprolol, Entresto, spironolactoneand empagliflozin. I will try to we increase her Entresto from half a tablet to a full tablet daily. When we did this before, she had asymptomatic blood pressures in the 80s and it was reduced to half a tablet. Given that her ejection fraction has improved a bit from 15 to 20% to now 24%, it is reasonable to reattempt. Given the fact that her ejection fraction remains less than 35% despite maximal guideline directed medical therapy and her left ventricular end-diastolic dimension continues to enlarge despite optimal therapy, now 7.8 cm, we will refer her to electrophysiology for consideration of an ICD. I will see her back in clinic when she comes back to see EP. #HFrEF: d/t ?viral, RCA [employer] on cath- no cMR, EF 26%, NYHA 2-3, Volume euvolemic - Beta marita: Mertop succ 100mg QD - RASi: Entresto 0.5 tabs of 24/26mg BID - MRA: Samir 12.5mg PO QD - SGLT-2 Empa 10mg QD - Diuretic: does not require - ICD refer to EP #CAD: [employer] of RCA on cath from 02/12, 50% mLAD lesion, no angina - ASA 81mg QD - Atrova 80mg QD #HTN: BP 115/69 - As above #HL: LDL 30 in 08/13 - Statin: Atorva 80mg QD - can decrease to 40mg PO QD #DM: HbA1c - check at next visit RTC in 3 months with EP Alisa Reddy MD MPH [facility] Attending 07/31/2021, 9:40 AM documented in this encounter Plan of Treatment Upcoming Encounters Date Type Department Care Team (Late st Contact Info) Description 10/17/2023 10:30 AM EDT Appointment Non-[place] [address] [place] [address] 10/17/2023 11:40 AM EDT Office Visit Cardiology at [address] [phone] [place] [address] 11/15/2023 10:00 AM EDT Hospital Encounter Non-[place]vasive [place] [phone] Arrived 11/21/2023 1:40 PM EDT Office Visit Cardiology at [address] [phone] Lea Hodges MD [facility] [place] [address] Scheduled Referrals Name Type Priority Associated Diagnoses Order Schedule Referral to Cardiac Electrophysiology Outpatient Referral Routine HFrEF (heart failure with reduced ejection fraction) Ordered: 07/31/2021 documented as of this encounter Goals Goal Patient Goal Type Associated Problems Recent Progress Patient-Stated? Author [facility] Home Medication Compliance and Understanding Patient Facing Action Plan No Yahir Mcallister, [facility] Note: To live and see improvement in her heart function and ability to have good quality of life documented as of this encounter Results * Hemoglobin A1c (07/31/2021 8:11 AM EDT) Hemoglobin A1C 5.6 4.3 - 5.6 % [facility] Comment: Reference Range: 4.3 - 5.6% [...] Mellitus, Diabetes Care 2013; 36: Suppl. 1, S67-86 Est Avg Gluc 113 mg/dL [facility] Comment: eAG equivalents [...] into estimated average glucose values. ??Diabetes Care 2008:31(8):7880-6429. Blood 07/31/2021 8:11 AM EDT 07/31/2021 8:40 AM EDT Narrative Resulting Agency Comment Spec In Lab Alisa Borrero MD CHEMISTRY OR DERABLES [facility] [place] [address] * Lipid Panel (Reflex Direct LDL) (07/31/2021 8:11 AM EDT) Chol, Total 88 mg/dL [facility] Comment: Lower Risk: <200 mg/dL Average Risk: 200-239 mg/dL Higher Risk: >ud=049 mg/dL Triglycerides 105 mg/dL [facility] Comment: Average Risk/Lower Risk: <150 mg/dL Borderline High Risk: 150-199 mg/dL High Risk: 200-499 mg/dL Very High Risk: >bb=164 mg/dL HDL 37 mg/dL [facility] Comment: Males: ?? Higher Risk: <40 mg/dL Females: ?? Higher Risk: <50 mg/dL LDL Cholesterol 30 mg/dL [facility] Comment: Lowest Risk: <100 mg/dL Lower Risk: 100-129 mg/dL Borderline High Risk: 130-159 mg/dL High Risk: 160-189 mg/dL Very High Risk: >kh=331 mg/dL Chol/HDL Ratio 2.4 ratio [facility] Lipid Interpretation See Note [facility] Comment: Lipid management should be guided by a patient? s ASCVD risk, goals and preferences. ACC/AHA Guidelines recommend high intensity statin if clinical ASCVD or LDL greater than or equal to 190 mg/dL. http://Dercetourl.com/ZIW-BHI-Svhujpkha Adults aged 40-75 with LDL 70-189 mg/dL should have their 10 year ASCVD risk estimated with the ACC/AHA ASCVD risk pals specialist http://tools.acc.org/VBDUQ-Kwpx-Ruiedslgw/ Statin should be discussed if risk greater than or equal to 7.5% in non-diabetics. With diabetes, moderate intensity statin is recommended if risk less than 7.5%, high intensity if risk greater than or equal to 7.5%. Annual lipid monitoring on statins is not necessary. Evaluate secondary causes of Triglycerides greater than 500 mg/dL or LDL greater than 190 mg/dL: See table 6 of ACC/AHA Guideline. Lifestyle modification is a critical component of ASCVD risk reduction. Blood 07/31/2021 8:11 AM EDT 07/31/2021 8:40 AM EDT Narrative Resulting Agency Comment Spec In Lab Alisa Borrero MD CHEMISTRY OR DERABLES Performing Organization Address [facility]/ZIP Co de Phone Number [facility] [place] [address] * (ABNORMAL) pro-Brain Natriuretic Peptide (07/31/2021 8:11 AM EDT) ProBNP 1,550(H) <=124 pg/mL [facility] Blood 07/31/2021 8:11 AM EDT 07/31/2021 8:40 AM EDT Narrative Resulting Agency Comment Spec In Lab Alisa Borrero MD CHEMISTRY OR DERABLES Performing Organization Address [facility]/ZIP Co de Phone Number [facility] [place] [address] * (ABNORMAL) Basic Metabolic Panel (non-fasting) (07/31/2021 8:11 AM EDT) Glucose Lvl 100 65 - 199 mg/dL [facility] Comment:Diabetes: >=200 mg/d L plus symptoms BUN 16 8 - 18 mg/dL [facility] Creatinine 1.04 0.70 - 1.20 mg/dL [facility] Sodium 137 135 - 145 mmol/L [facility] Potassium 5.0 3.5 - 5.0 mmol/L [facility] Comment: Please note: ??Patients with WBC >100,000 may have falsely elevated Potassium levels. ??For accurate Potassium quantification in these patients send serum separator tube (gold top) for subsequent determinations. ??Contact the Clinical Chemistry Laboratory if there are any questions. Chloride 99 98 - 107 mmol/L [facility] CO2 26 22 - 31 mmol/L [facility] Anion Gap 12 5 - 15 mmol/L [facility] Calcium 9.5 8.5 - 10.5 mg/dL [facility] Estimated GFR 56(L) >=60 mL/min/1. 73 m?? [facility] Comment: This patient? s estimated glomerular filtration rate (eGFR) is between 56 mL/min/1.73 m2 (patients with less muscle mass) and 65 mL/min/1.73 m2 (patients with more muscle mass) as determined by the CKD-EPI equation. Assessment of eGFR is not appropriate when creatinine concentrations are rapidly changing. For clinical decisions where creatinine clearance will affect therapy, a 24-hour urine creatinine clearance may be advised. Assignment of CKD stage 1 - 5 for patients with an eGFR near the transition point between stages may be based on clinical assessment of muscle mass and symptoms in addition to eGFR. Blood 07/31/2021 8:11 AM EDT 07/31/2021 8:40 AM EDT Narrative Resulting Agency Comment Spec In Lab Alisa Borrero MD CHEMISTRY OR DERABLES [facility] [place] [address] documented in this encounter Visit Diagnoses Diagnosis HFrEF (heart failure with reduced ejection fraction) Hyperglycemia Other abnormal glucose documented in this encounter Care Teams Housing Director Relationship Specialty Start Date End Date Oleg Trinidad MD [address] [place] [address] PCP - General Family Medicine 07/31/21 documented as of this encounter
--- OUTSIDE RECORDS SUMMARY | 2023-10-16 01:24 | XMS_ITS | Encounter Summary ---
Author Organization [facility] [place] [address] Care Team Providers Care Biomedical Engineering Professor Name Role Phone Angela Cotto MD Primary Care Provider Encounter Details Date Type Department Care Team (Late st Contact Info) Description 06/14/2021 [place] [phone] Mimi Crawford Social History Tobacco Use Types Packs/Day Years [...] 10:30 AM EDT Appointment Non-Invasive [place] [phone] Lea Jay MD [facility] [place] [address] 10/17/2023 11:40 AM EDT Office Visit Cardiology at [address] [phone] Lea Jay MD [facility] [place] [address] 11/15/2023 10:00 AM EDT Hospital Encounter Non-Invasive [place] [address] Arrived 11/21/2023 1:40 PM EDT Office Visit Cardiology at [address] [phone] Lea Hodges MD [facility] [place] [address] documented as of this encounter Goals Goal Patient Goal Type Associated Problems Recent Progress Patient-Stated? Author [facility] Medication Compliance and Understanding Patient Facing Action Plan No Yahir Mcallister, [facility] Note: To live and see improvement in her heart function and ability to have good quality of life documented as of this encounter Visit Diagnoses Not on filedocumented in this encounter Care Teams Biomedical Engineering Professor Relationship Specialty Start Date End Date Angela Cotto MD [address] [place] [address] PCP - General Family Medicine 02/20/21 07/30/21 documented as of this encounter
--- OUTSIDE RECORDS SUMMARY | 2023-10-16 01:24 | XMS_ITS | Encounter Summary ---
Author Organization [facility] [place] [address] Care Team Providers Care Electric Drill Operator Name Role Phone Oleg Trinidad MD Primary Care Provider [phone] Encounter Details Date Type Department Care Team (Late st Contact Info) Description 08/07/2021 Telephone Cardiology at [address] [phone] Mylene Carrero PA [facility] [place] [address] Social History Tobacco Use Types Packs/Day Years [...] encounter Miscellaneous Notes * Telephone Encounter - Mylene Carrero PA - 08/07/2021 10:49 AM EDT Briefly, received call from PCP regarding diuretic dosing. Patient continues to take Lasix daily although notes had indicated we recommended her to stop in the setting of low blood pressure and Entresto use. As per PCP, she is euvolemic and vitals are stable. Dr Trinidad will contact the patient to recommend Lasix be used PRN. Daily weights, s/s of volume expansion discussed. Stopping Lasix may allow us to increase Entresto dosing. Mylene Carrero, Roe documented in this encounter Plan of Treatment Upcoming Encounters Date Type Department Care Team (Late st Contact Info) Description 10/17/2023 10:30 AM EDT Appointment Non-[place] [phone] [place] [address] 10/17/2023 11:40 AM EDT Office Visit Cardiology at [address] [phone] [place] [address] 11/15/2023 10:00 AM EDT Hospital Encounter Non-[place]vasive [place] [phone] Arrived 11/21/2023 1:40 PM EDT Office Visit Cardiology at [address] [phone] Lea Hodges MD [facility] [place] [address] documented as of this encounter Goals Goal Patient Goal Type Associated Problems Recent Progress Patient-Stated? Author [facility] Home Medication Compliance and Understanding Patient Facing Action Plan No Yahir Mcallister, [facility] Note: To live and see improvement in her heart function and ability to have good quality of life documented as of this encounter Visit Diagnoses Not on filedocumented in this encounter Care Teams Electric Drill Operator Relationship Specialty Start Date End Date Oleg Trinidad MD [address] [place] [id number] PCP - General Family Medicine 07/31/21 documented as of this encounter
--- OUTSIDE RECORDS SUMMARY | 2023-10-16 01:24 | XMS_ITS | Encounter Summary ---
[place] [address] Care Team Providers Care Special Tester Name Role Phone Oleg Trinidad MD Primary Care Provider [phone] Reason for Visit * Reason Onset Date Comments Pre Procedure Call 12/01/2021 Encounter Details Date Type Department Care Team (Late st Contact Info) Description 12/01/2021 Telephone Cardiology at [address] [phone] Denisse Scott RN Pre Procedure Call Social History Tobacco Use Types Packs/Day Years [...] encounter Miscellaneous Notes * Telephone Encounter - Denisse Scott RN - 12/01/2021 8:41 AM EDTSummary: Pre Procedure Call: ICD implant RAMÓN MACHINE ATTENDANT COORDINATION CHECKLIST Patient Name: Stacy Esparza Patient Performing Precision Farming Coordinator: Ashlee Moon Referring Provider: Alisa Borrero Date of Procedure: 12/12/21 Arrival Time/ Case Time: 8:00 am / 9:00 am Check In Location: Typists Supervisor Desk 4W Date Patient was Called: 12/01/21 Procedure: ICD implant Type: SC Laterality: LEFT Orders: Yes Lab Orders: Yes - orders pended for Dr. Moon's signature Anesthesia: GA Discharge Plan/Disposition: OVERNIGHT/SSU Med Instructions: DIURETIC - hold spironolactone the AM of procedure ARB - hold Entresto the AM of procedure Other - hold Jardiance the AM of procedure DM: Yes Instructions for DM medications: Hold metformin the AM of procedure Anticoag Type: N/A Imaging: N/A HIBICLENS?: Yes COVID TEST?: No - asymptomatic / no recent exposure Contrast Allergy: No Coming from an assisted living facility?: No Any recent S/S of infection (fevers, on oral ABX)?: No Other Instructions: Clear liquids (water, apple juice, morales isabell) OK up until 2 hrs prior to procedure, nothing to eatafter midnight on day of procedure.Same Day will call 12/11/21. If applicable will bring CPAP from home. Will be staying overnight , understands that they will need transit bus driver on day of discharge Notified pt that Cruz catheter may be placed on day of procedure depending on type & duration of case. Notes: Pt requests sling upon discharge because when she sleeps at night she has been known to lift her arm above her head when she sleeps documented in this encounter Plan of Treatment Upcoming Encounters Date Type Department Care Team (Late st Contact Info) Description 10/17/2023 10:30 AM EDT Appointment Non-[place] [phone] Lea Jay MD [facility] [place] [address] 10/17/2023 11:40 AM EDT Office Visit Cardiology at [address] [phone] Lea Jay MD [facility] [place] [address] 11/15/2023 10:00 AM EDT Hospital Encounter Non-[place] [phone] Arrived 11/21/2023 1:40 PM EDT Office Visit Cardiology at [address] [phone] Lea Hodges MD [facility] [place] [address] documented as of this encounter Goals Goal Patient Goal Type Associated Problems Recent Progress Patient-Stated? Author [facility] Medication Compliance and Understanding Patient Facing Action Plan Yahir Ball, [facility] Note: To live and see improvement in her heart function and ability to have good quality of life documented as of this encounter Results * Basic Metabolic Panel (non-fasting) (12/12/2021 7:20 AM EDT) [facility] Glucose Lvl 99 65 - 199 mg/dL [facility] Comment:Diabetes: >=200 mg/d L plus symptoms BUN 14 8 - 18 mg/dL [facility] Creatinine 0.90 0.70 - 1.20 mg/dL [facility] Sodium 137 135 - 145 mmol/L [facility] Potassium 4.9 3.5 - 5.0 mmol/L [facility] Comment: Please note: ??Patients with WBC >100,000 may have falsely elevated Potassium levels. ??For accurate Potassium quantification in these patients send serum separator tube (gold top) for subsequent determinations. ??Contact the Clinical Chemistry Laboratory if there are any questions. Chloride 101 98 - 107 mmol/L [facility] CO2 25 22 - 31 mmol/L [facility] Anion Gap 11 5 - 15 mmol/L [facility] Calcium 9.4 8.5 - 10.5 mg/dL [facility] Estimated GFR 70 >=60 mL/min/1. 73 m?? [facility] Comment: This patient's estimated GFR was [...] and symptoms in addition to eGFR. Blood 12/12/2021 7:20 AM EDT 12/12/2021 7:37 AM EDT Narrative Resulting Agency Comment Spec In Lab Ashlee Moon MD CHEMISTRY ORDERABLES [facility] [place] [address] documented in this encounter Visit Diagnoses Diagnosis Coronary artery disease, unspecified vessel or lesion type, unspecified whether angina present, unspecified whether coquille or transplanted heart documented in this encounter Care Teams Special Tester Relationship Specialty Start Date End Date Oleg Trinidad MD [address] [place] [address] PCP - General Family Medicine 07/31/21 documented as of this encounter
--- OUTSIDE RECORDS SUMMARY | 2023-10-16 01:24 | XMS_ITS | Encounter Summary ---
Author Organization [facility] [place] [address] Care Team Providers Care Nuclear Medicine Technician Name Role Phone Oleg Trinidad MD Primary Care Provider Reason for Visit * Reason Comments Medication Refill Encounter Details Date Type Department Care Team (Late st Contact Info) Description 02/02/2022 Refill Internal Medicine at [address] [address] Shalom Light MD [facility] GENERAL [place] [address] Social History Tobacco Use Types Packs/Day Years [...] AM EDT Appointment Non-Invasive [place] [phone] Lea Jay MD [facility] [place] [address] 10/17/2023 11:40 AM EDT Office Visit Cardiology at [address] [phone] [place] [address] 11/15/2023 10:00 AM EDT Hospital Encounter Non-Invasive [place] [phone] Arrived 11/21/2023 1:40 PM EDT Office Visit Cardiology at [address] [phone] Lea Hodges MD [facility] [place] [address] documented as of this encounter Goals Goal [...] on filedocumented in this encounter Care Teams Nuclear Medicine Technician Relationship Specialty Start Date End Date Oleg Trinidad MD [address] [place] [address] PCP - General Family Medicine 07/31/21 documented as of this encounter
--- OUTSIDE RECORDS SUMMARY | 2023-10-16 01:24 | XMS_ITS | Encounter Summary ---
Author Organization On License Of [facility] Address [facility] [place] [address] Care Team Providers Care Vascular Sonographer Name Role Phone Oleg Trinidad MD Primary Care Provider [phone] Encounter Details Date Type Department Care Team (Late st Contact Info) Description 08/10/2021 Notes Only Care [place] [phone] Isabel Santiago Social History Tobacco Use Types [...] encounter Progress Notes * Isabel Santiago - 08/10/2021 3:08 PM EDT Application Final Determination Application Sent to Program: 08/10/2021 Program Name: [facility] Medication: Jardiance Program Phone #: Program Fax #: Pharmacy Phone #: Pharmacy Fax#: Enrollment End Date: 03/24/2022 Quantity Shipped: 90 Day Supply Shipping Timeframe: 7-10 Business Days Ships To: Patient Comments/Other: documented in this encounter Plan of Treatment Upcoming Encounters Date Type Department Care Team (Late st Contact Info) Description 10/17/2023 10:30 AM EDT Appointment Non[place] [phone] [place] [address] 10/17/2023 11:40 AM EDT Office Visit Cardiology at [address] [phone] [place] [address] 11/15/2023 10:00 AM EDT Hospital Encounter Non[place] [phone] Arrived 11/21/2023 1:40 PM EDT Office Visit Cardiology at [address] [phone] Lea Hodges MD [facility] [place] [address] documented as of this encounter Goals Goal Patient Goal Type Associated Problems Recent Progress Patient-Stated? Author DH Home Medication Compliance and Understanding Patient Facing Action Plan Yahir Ball, [facility] Note: To live and see improvement in her heart function and ability to have good quality of life documented as of this encounter Visit Diagnoses Not on filedocumented in this encounter Care Teams Vascular Sonographer Relationship Specialty Start Date End Date Oleg Trinidad MD [address] [place] [address] PCP - General Family Medicine 07/31/21 documented as of this encounter
--- OUTSIDE RECORDS SUMMARY | 2023-10-16 01:24 | XMS_ITS | Encounter Summary ---
Author Organization [facility] [place] [address] Care Team Providers Care Cell Pourer Name Role Phone Oleg Trinidad MD Primary Care Provider [phone] Encounter Details Date Type Department Care Team (Late st Contact Info) Description 11/30/2021 Notes Only Cardiology [address] [place] [address] Julissa Lomas, LUGGAGE REPAIRER [facility] [place] [address] Social History Tobacco Use Types Packs/Day Years [...] as of this encounter Progress Notes * Julissa Lomas, LUGGAGE REPAIRER - 11/30/2021 3:45 PM EDT Telephone call to patient regarding questions about upcoming ICD implant. Clarified she did not have allergy to contrast. During cardiac catheterization 01/25/21 that found in-stent restenosis of the RCA lesion, she had pulmonary edema due to HFrEF with LVEDP 45, with respiratory failure requiring Bipap, and IV diuresis. 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 Julissa Lomas APRN 11/30/21 documented in this encounter Plan of Treatment Upcoming Encounters Date Type Department Care Team (Late st Contact Info) Description 10/17/2023 10:30 AM EDT Appointment Non-[place] [phone] [place] [address] 10/17/2023 11:40 AM EDT Office Visit Cardiology at [address] [phone] [place] [address] 11/15/2023 10:00 AM EDT Hospital Encounter Non-[place]vasive [place] [phone] Arrived 11/21/2023 1:40 PM EDT Office Visit Cardiology at [address] [phone] Lea Hodges MD [facility] [place] [address] documented as of this encounter Goals Goal [...] on filedocumented in this encounter Care Teams Cell Pourer Relationship Specialty Start Date End Date Oleg Trinidad MD [address] [place] [id number] PCP - General Family Medicine 07/31/21 documented as of this encounter
--- OUTSIDE RECORDS SUMMARY | 2023-10-16 01:24 | XMS_ITS | Encounter Summary ---
Author Organization [facility] [place] [address] Care Team Providers Care Engineering Assistant Name Role Phone Oleg Trinidad MD Primary Care Provider [phone] Reason for Visit * Reason Comments Medication Refill Encounter Details Date Type Department Care Team (Late st Contact Info) Description 02/05/2022 Refill Internal Medicine at [address] [address] Shalom Light MD [facility] [place] [address] Social History Tobacco Use Types Packs/Day Years [...] 10:30 AM EDT Appointment [place] [address] Lea Jay MD [facility] [place] [address] 10/17/2023 11:40 AM EDT Office Visit Cardiology at [address] [phone] [place] [address] 11/15/2023 10:00 AM EDT Hospital Encounter Non[place] [phone] Arrived 11/21/2023 1:40 PM EDT Office Visit Cardiology at [address] [phone] Lea Hodges MD [facility] [place] [address] documented as of this encounter Goals Goal Patient Goal Type Associated Problems Recent Progress Patient-Stated? Author DH Home Medication Compliance and Understanding Patient Facing Action Plan No Yahir Mcallister, [facility] Note: To live and see improvement in her heart function and ability to have good quality of life documented as of this encounter Visit Diagnoses Not on filedocumented in this encounter Care Teams Engineering Assistant Relationship Specialty Start Date End Date Oleg Trinidad MD [address] [place] [address] PCP - General Family Medicine 07/31/21 documented as of this encounter
--- OUTSIDE RECORDS SUMMARY | 2023-10-16 01:24 | XMS_ITS | Encounter Summary ---
[place] [address] Care Team Providers Care Gas Transfer Operator Name Role Phone Angela Cotto MD Primary Care Provider [phone] Reason for Visit * Reason Onset Date Comments Follow-up 06/22/2021 Hypotension Encounter Details Date Type Department Care Team (Late st Contact Info) Description 06/22/2021 Telephone Cardiology at [address] [phone] Chela Berry, RN Follow-up (Hypotension/) Social History Tobacco Use Types Packs/Day Years [...] Telephone Encounter - Chela Berry, RN - 06/22/2021 3:06 PM EDT Pt calling to give an update on how she is doing with the Entresto back to 24-26 mg 1/2 tab bid. She continues to have difficulty getting a BP reading, she has even tired 2 new BP cuffs that read error. She was able to get a BP reading at her PCP office yesterday 100/53. She is feeling good. Weight 141.6 lbs today, loosing weight. No swelling, breathing good. Above reviewed with SHEREE Carrero who would like the pt to stop her Lasix. Pt to call if her weight goes up 2 lbs in a day, 5 lbs in a week or if she notices any swelling in her lower extremities and/or abdomen. Lasix removed form med list. Pt agreeable with stopping the Lasix. Pt to bring her BP monitor in to her next visit, to make sure that the monitor is working properly. documented in this encounter Plan of Treatment Upcoming Encounters Date Type Department Care Team (Late st Contact Info) Description 10/17/2023 10:30 AM EDT Appointment Non-[place] [phone] [place] [address] 10/17/2023 11:40 AM EDT Office Visit Cardiology at [address] [phone] [place] [address] 11/15/2023 10:00 AM EDT Hospital Encounter Non-[place]vasive [place] [phone] Arrived 11/21/2023 1:40 PM EDT Office Visit Cardiology at [address] [phone] Lea Hodges MD [facility] [place] [address] documented as of this encounter Goals Goal Patient Goal Type Associated Problems Recent Progress Patient-Stated? Author DH Home Medication Compliance and Understanding Patient Facing Action Plan Yahir Ball, RPH Note: To live and see improvement in her heart function and ability to have good quality of life documented as of this encounter Visit Diagnoses Not on filedocumented in this encounter Care Teams Gas Transfer Operator Relationship Specialty Start Date End Date Angela Cotto MD [address] [place] [address] PCP - General Family Medicine 02/20/21 07/30/21 documented as of this encounter
--- OUTSIDE RECORDS SUMMARY | 2023-10-16 01:24 | XMS_ITS | Encounter Summary ---
Author Organization [facility] [place] [address] Care Team Providers Care Freight Representative Name Role Phone Oleg Trinidad MD Primary Care Provider [phone] Reason for Visit * Consultation (Routine) - Closed Specialty Diagnoses / Procedures Referred By Contact Referred To Contact Electrophysiology / Cardiology Diagnoses HFrEF (heart failure with reduced ejection fraction) ICD Alisa De Leon MD [facility] [place] [address] [facility] Cardiology [address] [place] [phone] Referral ID Status Reason Start Date Expiration Date V isits Requested Visits Authorized [id number] Closed Consult, Test & Treat 07/31/2021 07/31/2022 1 1 Encounter Details Date Type Department Care Team (Late st Contact Info) Description 11/24/2021 3:30 PM EDT Office Visit Cardiology at [address] [phone] Julissa Lomas APRN [facility] [place] [address] Cardiomyopathy, unspecified type; HFrEF (heart failure with reduced ejection fraction) [...] Sign Reading Time Taken Comments Blood Pressure 116/63 11/24/2021 3:41 PM EDT Pulse 71 11/24/2021 3:41 PM EDT Temperature - - Respiratory Rate - - Oxygen Saturation 91% 11/24/2021 3:4 1 PM EDT RINA notified Inhaled Oxygen Concentration - - Weight 67.3 kg (148 lb 6.4 oz) 11/24/2021 3:41 PM EDT Height 160 cm (5' 3) 11/24/2021 3:41 PM EDT patient reported Body Mass Index 26.29 11/24/2021 3:41 PM EDT documented in this encounter Patient Instructions * Patient Instructions* Julissa Lomas APRN - 11/24/2021 3:30 PM EDT Procedure Information 1. You will be scheduled for an ICD procedure on (to to be determined) . You will need to arrive at ____(they will contact you)___. Please check in at the Same Day Program at [facility] 2. If you are on warfarin/Coumadin, please have your INR checked on (not applicable). 3. Please do not eat or drink anything after midnight the night prior to your procedure. 4. You may take your morning medications with just a sip of water. Please make the following changes to your medications: -Do not take metformin the morning of your procedure 5. Please use HIBICLENS soap the night before and the morning of the surgery. 6. If you need to change the date or time of your surgery or you become ill, please call scheduling [phone]. Device Clinic Information 1. You will be given post-procedure restrictions and instructions at the time of your discharge. 2. At the time of implant, you will be given a home monitor that is capable of sending clinical information to the device clinic (which can take the place of an office visit). If you are unable to set this up at home prior to your wound check, we will review this at the time of your appointment 3. You will be scheduled for a wound check appointment ~10 days after your procedure. At that appointment the device nurse will look at your incision, ensure that your home monitor is set up correctly, and review the device follow up schedule. documented in this encounter Progress Notes * Julissa Lomas APRN - 11/24/2021 3:30 PM EDT Images from the original note were not included. [facility] Electrophysiology Clinic Visit Referring Provider: Alisa Borrero MD [facility] [place] [address] Primary Care Provider: Oleg Trinidad MD [address] [place] [id number] HPI: Stacy Esparza is a 66 y.o. 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 She takes GDMT including metoprolol, Entresto, spironolactone, empagliflozin >3 months. She describes shortness of breath with walking, but not at rest. Denies lightheadedness, dizziness,syncope. She has never had any slow heart rates or any fast heart rates. She has felt a few palpitations over the years but never thought to mention it. There has never been any documented arrhythmias. She does not have atrial fibrillation. She is right-handed. Denies any trauma, radiation to her left chest. She is not claustrophobic. She described a very bad experience when she had a cardiac catheterization in that she had pulmonary edema and was wide-awake and felt like she was drowning during the procedure. She would rather notbe awake for any future procedures and that kind of environment. She is here with her daughter Misty. 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 Problem List: Patient Active Problem List Diagnosis Code ??? 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 Alcohol abuse, unspecified F10.10 ??? Hyperpotassemia E87.5 ??? Cardiogenic shock R57.0 ??? Unspecified hypothyroidism E03.9 ??? CAD (coronary artery disease) I25.10 No past surgical history on file. Allergies (allergy): Allergies Allergen Reactions ??? Lisinopril Other (See Comments) cough Other reaction(s): Cough ??? Venom-Honey Bee Medications(cmed): Current Outpatient Medications Medication Sig Dispense Refill ??? traMADoL (Ultram) 50 mg Tablet Take 50 mg by mouth every 12 hours as needed for Pain (taking only 1 tab every morning). ??? sacubitriL-valsartan (Entresto) 24-26 mg Tablet tablet Take 1 tablet by mouth 2 times daily. 180 tablet 3 ??? empagliflozin (Jardiance) 10 [...] tablet Take 1 tablet by mouth daily. No current facility-administered medications for this visit. Social History Socioeconomic History ??? Marital status: Spouse name: Not on file ??? Number of children: Not on file ??? Years of education: Not on file ??? Highest education level: Not on file Occupational History ??? Not on file Tobacco Use ??? Smoking status: Current Some Day Smoker Packs/day: 0.25 Years: 50.00 Pack years: 12.50 Types: Cigarettes Last attempt to quit: 02/21/2021 Years since quittin.7 ??? Smokeless tobacco: Never Used Substance and Sexual Activity ??? Alcohol use: No Comment: none in last 3 months ??? Drug use: No ??? Sexual activity: Never Other Topics Concern ??? Not on file Social History Narrative ??? Not on file Social Determinants of Health Financial Resource Strain: Not on file Food Insecurity: Not on file Transportation Needs: Not on file Physical Activity: Not on file Housing Stability: Not on file No family history on file. Review of Systems Constitutional: + fatigue, - fever, - chills Respiratory: + shortness of breath, + cough, - apnea, - wheezing Cardiovascular: - chest pain, - palpitations, - unusual rates Gastrointestinal: - nausea, - vomiting, - abdominal pain, - diarrhea Neurological: - lightheadedness, - dizziness, - syncope, - weakness Psychiatric: - anxious Objective: Vitals: Vitals: 11/24/21 1541 BP: 116/63 BP Location (NBP): Left arm Patient Position: Sitting BP Cuff Sizes: Adult (25-34 cm) Pulse: 71 SpO2: 91% Weight: 67.3 kg (148 lb 6.4 oz) Height: 160 cm (5' 3) Physical Exam: General- No acute distress, sitting comfortably in exam room chair HEENT- Head atraumatic, normocephalic Skin- warm, dry, intact Neck- No JVD noted Cardiovascular- S1/S2 regular rate and rhythm. No murmur, rub or gallop Lungs- Clear to auscultation bilaterally Extremities- Pulses equal bilaterally. No edema noted Neuro- A&Ox3 ECG: normal sinus rhythm 62 bpm, [place] 168 ms, QRS 106 ms, QT 464 ms, QTc 470 ms. Echocardiogram: 07/31/21 Interpretation Summary Compared to the prior study 02/22/21 the left ventricle remains severely dilated with severely reduced global function and elevated filling pressures. The right ventricle function has improved to low-normal. There is less mitral regurgitation. Left Ventricle Left ventricle is severely dilated. Wall thickness is normal. Left ventricular systolic function is severely reduced. The left ventricular ejection fraction is 24% by Guzman's biplane. The left ventricular ejection fraction is 24% by 3D volumetric assessment. Global longitudinal strain is measured at -8.2 %. (GE). Severe global hypokinesis. Echocardiogram: 02/22/21: LVEF 15-20% Sedation evaluation: Mallampati class: III: only the base of the uvula can be seen ASA: 3: Patient with severe systemic disease Assessment/Plan: Stacy Esparza is a 66 y.o. 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 Given the patient's history of reduced left ventricular ejection fraction of 24%, she is at an increased risk of sudden cardiac and will likely benefit from an ICD for primary prevention of sudden cardiac . QRS duration is 106 ms, CELERY TIER is not indicated. An atrial lead is not indicated dueto no documented history of atrial arrhythmias, nor any pause dependent ventricular arrhythmias. We discussed the potential benefits and risks of the therapy both at the time of the procedure and thereafter. Specifically, I informed her that the potential risks include but are not limited to infection, bleeding, pneumothorax, cardiac perforation with or without tamponade, stroke, myocardial infarction and as well as the subsequent possibilities of infection of a chronic device, inappropriate shocks and failure to rescue life threatening arrhythmias. We discussed the ability of the device to provide antitachycardia pacing that can sometimes divert a shock. We discussed care with an ICD including lifestyle considerations with avoiding sources of electromagnetic interference, need for arm restrictions for 6 weeks, wound care, avoiding submersion in waterfor 2 weeks, no driving for 1 week, 10 to 14-day follow-up in device clinic, and usually every 6 months, and remote monitoring. I provided educational booklets on cardiomyopathy, ICD and the Coloradodecision-making tool for ICDs. She knows to call us should she have any questions or problems at any time. Plan: 1. Schedule for left-sided single-chamber ICD 2. Antibiotic therapy: Cefazolin 3. Sedation: Anesthesia 4. Anticoagulation plan: Not applicable, continue baby aspirin. 5. Temporary pacing: Not needed 6. Medication instructions: Hold metformin morning of procedure. 7. Patient instructions as below Julissa Lomas, [facility] 11/24/2021 Patient Instructions Procedure Information 1. You will be scheduled for an ICD procedure on (to to be determined) . You will need to arrive at ____(they will contact you)___. Please check in at the Same Day Program at [facility] 2. If you are on warfarin/Coumadin, please have your INR checked on (not applicable). 3. Please do not eat or drink anything after midnight the night prior to your procedure. 4. You may take your morning medications with just a sip of water. Please make the following changes to your medications: -Do not take metformin the morning of your procedure 5. Please use HIBICLENS soap the night before and the morning of the surgery. 6. If you need to change the date or time of your surgery or you become ill, please call [facility] [phone]. Device Clinic Information 1. You will be given post-procedure restrictions and instructions at the time of your discharge. 2. At the time of implant, you will be given a home monitor that is capable of sending clinical information to the device clinic (which can take the place of an office visit). If you are unable to set this up at home prior to your wound check, we will review this at the time of your appointment 3. You will be scheduled for a wound check appointment ~10 days after your procedure. At that appointment the device nurse will look at your incision, ensure that your home monitor is set up correctly, and review the device follow up schedule. documented in this encounter Plan of Treatment Upcoming Encounters Date Type Department Care Team (Late st Contact Info) Description 10/17/2023 10:30 AM EDT Appointment Non-Invasive [place] [phone] [place] [address] 10/17/2023 11:40 AM EDT Office Visit Cardiology at [address] [phone] [place] [address] 11/15/2023 10:00 AM EDT Hospital Encounter Non-Invasive [place] [phone] Arrived 11/21/2023 1:40 PM EDT Office Visit Cardiology at [address] [phone] Lea Hodges MD [facility] [place] [address] documented as of this encounter Goals Goal Patient Goal Type Associated Problems Recent Progress Patient-Stated? Author [facility] Medication Compliance and Understanding Patient Facing Action Plan Yahir Ball, [facility] Note: To live and see improvement in her heart function and ability to have good quality of life documented as of this encounter Procedures Procedure Name Priority Date/Time Associated Diagnosis Comments EKG 12-LEAD Routine 11/24/2021 3:50 PM EDT HFrEF (heart failure with reduced ejection fraction) documented in this encounter Results * EKG 12 Lead (11/24/2021 3:50 PM EDT) Ventricular rate 62 BPM MUSE SYSTEM Atrial Rate 62 BPM MUSE SYSTEM P-R Interval 168 ms MUSE SYSTEM QRS Duration 106 ms MUSE SYSTEM Q-T Interval 464 ms MUSE SYSTEM QTC Calculated (Bezet) 470 ms MUSE SYSTEM Calculated P Holcomb 72 degrees MUSE SYSTEM Calculated R Holcomb 8 degrees MUSE SYSTEM Calculated T Holcomb 159 degrees MUSE SYSTEM INTERPRETATION Normal sinus rhythm Poor R wave progression ST & T wave abnormality, consider lateral ischemia Abnormal ECG When compared with ECG of 21-FEB-2021 10:22, No significant change was found Confirmed by MD Zapata Daniel ([id number]) on 11/25/2021 1:04:57 PM MUSE SYSTEM 11/24/2021 3:50 PM EDT 11/25/2021 1:04 PM EDT Julissa Nunez Cesilia GAGE ECG ORDERABLES MUSE SYSTEM documented in this encounter Visit Diagnoses Diagnosis Cardiomyopathy, unspecified type HFrEF (heart failure with reduced ejection fraction) documented in this encounter Care Teams Freight Representative Relationship Specialty Start Date End Date Oleg Trinidad MD [address] [place] [address] PCP - General Family Medicine 07/31/21 documented as of this encounter
--- OUTSIDE RECORDS SUMMARY | 2023-10-16 01:24 | XMS_ITS | Encounter Summary ---
Author Organization [facility] Address [facility] [address] Care Team Providers Care Correctional Sergeant Name Role Phone Oleg Trinidad MD Primary Care Provider [phone] Encounter Details Date Type Department Care Team (Late st Contact Info) Description 12/27/2021 10:00 AM EDT Office Visit Cardiology at [address] [place] [address] Javy Burciaga PA [facility] [place] [address] ICD (implantable cardioverter-defibril lator) in place Social [...] Sign Reading Time Taken Comments Blood Pressure 87/57 12/27/2021 9:52 AM EDT Pulse 66 12/27/2021 9:52 AM EDT Temperature - - Respiratory Rate - - Oxygen Saturation 97% 12/27/2021 9:52 AM EDT Inhaled Oxygen Concentration - - Weight 67.8 kg (149 lb 8 oz) 12/27/2021 9:52 AM EDT Height 160 cm (5' 3) 12/27/2021 9:52 AM EDT Rep orted Body Mass Index 26.48 12/27/2021 9:52 AM EDT documented in this encounter Patient Instructions * Patient Instructions* Javy Burciaga PA - 12/27/2021 10:00 AM EDT 91 day Pledger check documented in this encounter Progress Notes * Javy Burciaga PA - 12/27/2021 10:00 AM EDT Cardiac Electrophysiology Clinic Note Patient: Stacy Esparza : 1955 Brief HPI: Stacy Esparza is a 66 year old female with a history of mixed ischemic/non-ischemic cardiomyopathy, who underwent implant of a single-lead left-sided ICD on 12/12/21 for primary prevention. She presents today for her 10 day device / wound check. Stacy reports feeling generally well and denies problems with the device or device pocket. ROS: Constitutional: - fatigue, - fever, - chills Respiratory: - shortness of breath, - cough, - apnea, - wheezing Cardiovascular: - chest pain, - palpitations, - unusual rates Gastrointestinal: - nausea, - vomiting, - abdominal pain, - diarrhea Neurological: - lightheadedness, - dizziness, - syncope, - weakness Psychiatric: - anxious Vitals: Last Set of Vitals and range of vitals over past 24 hours: Last value Range last 24 hrs Heart Rate Heart Rate: 66 Heart Rate: [66] Blood Pressure BP: (!) 87/57 BP: (87)/(57) SpO2 SpO2: 97 % SpO2: [97 %] Device Interrogation: Data Generator: SocialThreader [id number] / [id number] - Left-sided implant RV Lead: Medtronic [id number] / [id number] Detection Rates Therapy AF Monitor VF On >200 bpm iATP(3), 40 Jx6 FVT Off All Rx Off VT Off All Rx Off Alerts None Diagnostics Pacing Mode: VVI @ 40 bpm Presenting EGMs: VS Underlying Rhythm: Sinus ~60 bpm Atrial Episodes: 0 Ventricular Episodes: 0 Ventricular Pacing: <0.1% HR Histogram: Appropriate distribution Battery and Leads Voltage: 3.16 V Status: 14.4 years Magnet Rate: N/A Charge Time: NR Impedances (ohms) Sensing (mV) Thresholds HV RA RV LV RA RV LV RA RV LV 76 - 551 - - 9.8 - - 0.5V @ 0.4ms - Physical Exam: General- No acute distress, sitting comfortably in exam room chair HEENT- Head atraumatic, normocephalic Skin- Warm and dry. Pocket is healing well; no edema, ecchymosis or tenderness appreciated. Cardiovascular- S1/S2 regular rate and rhythm. No murmur, rub or gallop Lungs- Clear to auscultation bilaterally Extremities- Pulses equal bilaterally. No edema noted Neuro- A&Ox3 Comments: - Pocket incision is well healed without signs or symptoms of infection - Device is functioning appropriately - Programming changes ?? Iterative changes for testing only - Follow up: In-clinic 91-day device check in 3 months Javy Burciaga PA-C, PhD 12/27/2021 Pager: [phone] documented in this encounter Plan of Treatment Upcoming Encounters Date Type Department Care Team (Late st Contact Info) Description 10/17/2023 10:30 AM EDT Appointment Non-Invasive [place] [address] [place] [address] 10/17/2023 11:40 AM EDT Office Visit Cardiology at [address] [address] [place] [address] 11/15/2023 10:00 AM EDT Hospital Encounter Non-Invasive [place] [phone] Arrived 11/21/2023 1:40 PM EDT Office Visit Cardiology at [address] [address] Lea Hodges MD [facility] [place] [address] documented as of this encounter Goals Goal Patient Goal Type Associated Problems Recent Progress Patient-Stated? Author [facility] Medication Compliance and Understanding Patient Facing Action Plan No Yahir Mcallister, [facility] Note: To live and see improvement in her heart function and ability to have good quality of life documented as of this encounter Visit Diagnoses Diagnosis ICD (implantable cardioverter-defibrillator) in place documented in this encounter Care Teams Correctional Sergeant Relationship Specialty Start Date End Date Oleg Trinidad MD [address] [place] [address] PCP - General Family Medicine 07/31/21 documented as of this encounter
--- OUTSIDE RECORDS SUMMARY | 2023-10-16 01:24 | XMS_ITS | Encounter Summary ---
Author Organization [facility] [place] [address] Care Team Providers Care Branch Associate Name Role Phone Oleg Trinidad MD Primary Care Provider [phone] Reason for Visit * Auth/Cert Specialty Diagnoses / Procedures Referred By Contac t Referred To Contact Diagnoses Cardiomyopathy Cardiomyopathy, unspecified type [I42.9] HFrEF (heart failure with reduced ejection fraction) [I50.20] Procedures PRO INSERT/REPOSTION ELECTRD LEADS ELECTROPHYSIOLOGY PROCEDURE INSERT\REPOSITION LEAD FOR SINGLE\DUAL PACER & INSERT GEN. (WRVU 15.17) Ashlee Moon MD [facility] [place] [address] [facility] Referral ID Status Reason Start Date Expiration Date Visits Re quested Visits Authorized [id number] 1 1 Encounter Details Date Type Department Care Team (Late st Contact Info) Description 12/12/2021 7:44 AM EDT Anesthesia Event [place] [address] Sharifa Ruby MD [facility] [place] [address] Anesthesia Record Procedure Summary Procedure Name Responsible Anesthesiologist Anesthesia Start Time Anesthesia Stop Time ELECTROPHYSIOLOGY PROCEDURE (Left) Sharifa Ruby MD 12/12/21 0744 12/12/21 0957 Events Date Time Event Comment 12/12/2021 0713 0744 AN Verify 0744 Start 0744 An Start Data 0808 Anesthesia Ready 0936 an stop data 0955 Recovery or ICU Handoff Mansi ent care was transferred to the destination unit staff after review of the patient's medical history, current anesthetic/surgical status and plan, according to the Provider Handoff Checklist. 956 Stop Meds Name Total Midazolam 3 mg fentaNYL 25 mcg Dexmedetomidine 8 mcg ceFAZolin (Ancef) 2 g in dextrose 5% 100 mL infusion 2 g lactated ringers infusion 300 mL * Agents Name O2 Air N2O O2 Auxiliary Flowmeter 1 * Blood No blood administrations on file. Lines, Drains, and Airways Type Details Placement Removal (RETIRED) Peripheral IV Line - Single Lumen 12/12/21; 0731; basilic vein (medial side of arm), left; [id number]-[id number] catheter system; Anatomical Landmarks; 20 gauge; Lea SCHERER; 12/13/21; 1008 12/12/21 0731 by Gabriel Kennedy RN 12/13/21 1008 by Rekha Drew RN Incision 12/12/21; 0820; Left ; chest; horizontal; 08/20/23; 1333 12/12/21 0820 by Vinicio Nunez RN 08/20/23 1333 by Schuyler Montero documented in this encounter Social History Tobacco Use Types Packs/Day Years [...] on file documented as of this encounter OR Notes * Anesthesia Postprocedure Evaluation - Sharifa Ruby MD - 12/12/2021 10:16 AM EDT Department of Anesthesiology Post-procedure Note Patient: Stacy Esparza Procedure Summary Date: 12/12/21 Room / Location: [facility] CATH [facility] Anesthesia Start: 743 Anesthesia Stop: 956 Procedures: ELECTROPHYSIOLOGY PROCEDURE (Left ) INSERT\REPOSITION LEAD FOR SINGLE\DUAL PACER & INSERT GEN. (WRVU 15.17) (N/A Chest) Diagnosis: Cardiomyopathy, unspecified type HFrEF (heart failure with reduced ejection fraction) (Cardiomyopathy, unspecified type [I42.9] HFrEF (heart failure with reduced ejection fraction) [I50.20]) Providers: sAhlee Moon MD Responsible Provider: Sharifa Ruby MD Anesthesia Type: MAC ASA Status: 3 All Anesthesia Providers: Anesthesiologist: Sharifa Ruby MD LEGUILLON DEBEADER: Duglas Ashford CRNA Vitals Value Taken Time BP 78/52 12/12/21 1015 Temp Pulse 60 12/12/21 1016 Resp 15 12/12/21 1016 SpO2 94 % 12/12/21 1016 Pain Level Vitals shown include unvalidated device data. Patient Location: PACU/[facility] Level of Consciousness: Awake and Alert Pain Management: Satisfactory Analgesia PONV: None Cardiovascular Status: At Baseline and Hemodynamically Stable Respiratory Status: At Baseline and Room Air Postoperative Fluid Status: Intravascular EUvolemia Possible Anesthetic Complications: NONE apparent at time of evaluation Final Primary Anesthesia Type: MAC (The anesthetic type performed was the same as planned.) Comments: Mild hypotension, MAP's ~63, but awake, alert, comfortable, encouraged PO fluid intake. Caution with IV fluids given low EF Sharifa Ruby MD * Anesthesia Preprocedure Evaluation - Sharifa Ruby MD - 12/11/2021 5:07 PM EDT Images from the original note were not included. Pre-Anesthesia Evaluation for: Stacy Esparza a 66 y.o. female. Procedure(s): ELECTROPHYSIOLOGY PROCEDURE INSERT\REPOSITION LEAD FOR SINGLE\DUAL PACER & INSERT GEN. (WRVU 15.17) Patient Active Problem List Diagnosis Date Noted ??? CAD (coronary artery disease) 02/21/2021 ??? Other primary cardiomyopathies 05/01/2012 ??? Alcohol abuse, unspecified 05/01/2012 ??? Hyperpotassemia 05/01/2012 ??? Cardiogenic shock 05/01/2012 ??? Unspecified hypothyroidism 05/01/2012 No past medical history on file. No past surgical history on file. Social History Tobacco Use ??? Smoking status: Current Some Day Smoker Packs/day: 0.25 Years: 50.00 Pack years: 12.50 Types: Cigarettes Last attempt to quit: 02/21/2021 Years since quittin.8 ??? Smokeless tobacco: Never Used Substance Use Topics ??? Alcohol use: No Comment: none in last 3 months Social History Substance and Sexual Activity Drug Use No Allergies Allergen Reactions ??? Lisinopril Other (See Comments) cough Other reaction(s): Cough ??? Venom-Honey Bee Medications: MAR and/or home medications have been reviewed. Physical Exam: Preprocedure Vitals Current as of 12/11/21 1707 No BP, pulse, respiration, SpO2, or temperature recorded. Height: 160 cm (5' 3) (11/24/21) Weight: 67.3 kg (148 lb 6.4 oz) (11/24/21) BMI: 26.29 IBW: 52.4 kg (115 lb 7.7 oz) Airway Assessment: Mallampati: II TM distance: >3 FB Neck ROM: full Cardiovascular Assessment: Rhythm: regular Rate: normal Pulmonary Assessment: breath sounds clear to auscultation Dental Assessment: Misc Assessment: Last Filed Perioperative Cognitive Screening None Anesthesia Plan: ASA 3 MAC, with a(n) intravenous induction Attending Assessment: Patient personally seen and examined. 66yo F 67kg BMI 26 with HFrEF presenting for single-lead ICD placement for primary prevent. PMH: HFrEF, < 1/2ppd active smoker, prior alcohol abuse (none for several years) No other pulmonary problems. No recent URI. Functional status: light housework (cannot vacuum due to back pain), able to climb 2 FOS slowly Able to lie flat TTE 07/2021: LV severely diliated with LVEF 24%, diffuse hypokineses, elevated filling pressures with Gr 2 diastolic dysfunction. The right ventricle function has improved to low-normal. RV normal size and function. PASP could not be estimated due to inadeq TR LA mildly dilated. Moderate MR, trace TR Well-controlled GERD (asymptomatic in preop). No problems with anesthesia in the past. Patient underwent RCA in 2020 when LVEDP was noted to be elevated at 45, went into pulmonary edema,requiring rescue BiPAP. Meds: reviewed NPO status adequate Plan: - standard ASA monitors, PIV, +/- arterial line - MAC, with GA as backup (discussed with patient light sedation, and likelihood of hearing and recall during the procedure) - judicious fluid administration - of note, patient is on Jardiance, and did her usual dose on 12/11/21. Will check VBG, glucose, andbe on alert for potential hypovolemia and euglycemic DKA - VBG in preop shows 7.28/56 Bicarb 26 BE -0.8, Lact 1.2, Glu 99. Reassuring respiratory acidosis (no e/o metabolic acidosis), clear lungs on auscultation The patient was informed of the risks, benefits and alternatives of anesthesia. These risks included, but were not limited to, post-operative nausea and/or vomiting, pain, sore throat, dental/lip injury, and other rare but serious complications such as cardiac instability/arrest, neurologic event, awareness, severe allergic reactions, position-related nerve injuries, and need blood transfusions. All questions sought and answered. Consent was signed and placed in chart. Sharifa Ruby MD 12/11/2021 Region - Other Informed Consent: Anesthetic plan and risks discussed with patient and daughter/son. Plan discussed with LEGUILLON DEBEADER. Anesthesia Screening documented in this encounter Plan of Treatment Upcoming Encounters Date Type Department Care Team (Late st Contact Info) Description 10/17/2023 10:30 AM EDT Appointment Non[place] [address] [place] [address] 10/17/2023 11:40 AM EDT Office Visit Cardiology at [address] [phone] [place] [address] 11/15/2023 10:00 AM EDT Hospital Encounter Non-Invasive Cardiology Lab [facility] [place] [address] Arrived 11/21/2023 1:40 PM EDT Office Visit Cardiology at [address] [address] Lea Hodges MD [facility] [place] [address] documented as of this encounter Goals Goal Patient Goal Type Associated Problems Recent Progress Patient-Stated? Author [facility] Medication Compliance and Understanding Patient Facing Action Plan Yahir Ball, [facility] Note: To live and see improvement in her heart function and ability to have good quality of life documented as of this encounter Visit Diagnoses Not on filedocumented in this encounter Administered Medications Inactive Administered Medications - up to 3 most recent administrations Medication Order MAR Action Action Date Dose Rate Site ceFAZolin (Ancef) 2 g in dextrose 5% 100 mL infusion 2 g, Intravenous, ONCE, 1 dose, On Sat12/12/21 at 0730, Administer over 30 Minutes, For use in the electrophysiology lab (EP lab) only with direct provider supervision and verbal order., EP (Intra-Procedure), Indication for (Active or Suspected): Prophylaxis Given 12/12/2021 8:01 AM EDT 2 g dexmedeTOMIDine (Precedex) (4 mcg/mL) bolus injection (Anesthsia) Intravenous, PRN, Starting on Sat12/12/21 at 0755, Until Sat12/12/21 at 0957, Anesthesia Intra-op, Routine Given 12/12/2021 8:06 AM EDT 4 mcg Given 12/12/2021 7:55 AM EDT 4 mcg fentaNYL (pf) (50 mcg/mL) multi-dose injection Intravenous, PRN, Starting on Sat12/12/21 at 0807, Until Sat12/12/21 at 0957, Anesthesia Intra-op, Routine Given 12/12/2021 8:07 AM EDT 12.5 mcg Given 12/12/2021 7:57 AM EDT 12.5 mcg lactated ringers infusion 1,000 mL, at 100 mL/hr, Intravenous, CONTINUOUS, Starting on Sat12/12/21 at 0700, Until Sat12/12/21 at 1633, Day of Surgery (Day of Procedure) New Bag 12/12/2021 7:44 AM EDT midazolam (pf) (Versed) (1 mg/mL) multi-dose injection Intravenous, PRN, Starting on Sat12/12/21 at 0754, Until Sat12/12/21 at 0957, Anesthesia Intra-op, Routine Given 12/12/2021 8:14 AM EDT 1 mg Given 12/12/2021 7:54 AM EDT 2 mg documented in this encounter Care Teams Branch Associate Relationship Specialty Start Date End Date Oleg Trinidad MD [address] [place] [address] PCP - General Family Medicine 07/31/21 documented as of this encounter
--- OUTSIDE RECORDS SUMMARY | 2023-10-16 01:24 | XMS_ITS | Encounter Summary ---
Author Organization [facility] Address [facility] [place] [address] Care Team Providers Care Accessioner Name Role Phone Oleg Trinidad MD Primary Care Provider [phone] Reason for Visit * Reason Onset Date Comments Medication Refill 02/09/2022 Entreseto Encounter Details Date Type Department Care Team (Late st Contact Info) Description 02/09/2022 Refill Cardiology at [address] [address] Mylene Carrero PA [facility] [place] [address] Medication Refill (Entreseto) Social History Tobacco Use Types Packs/Day Years [...] Telephone Encounter - Chela Berry RN - 02/09/2022 9:23 AM EST Message received from [facility] office requesting written prescription for Entresto. [facility] is requesting this along with the Application for assistance for this medication. Prescription entered, pended and signed to get the faxed version for SHEREE Carrero (Supervising provider: Lea Jay MD ) to sign and will be sent to [facility] office for processing. documented in this encounter Plan of Treatment Upcoming Encounters Date Type Department Care Team (Late st Contact Info) Description 10/17/2023 10:30 AM EDT Appointment Non-Invasive [place] [phone] [place] [address] 10/17/2023 11:40 AM EDT Office Visit Cardiology at [address] [phone] [place] [address] 11/15/2023 10:00 AM EDT Hospital Encounter Non-Invasive [place] [phone] Arrived 11/21/2023 1:40 PM EDT Office Visit Cardiology at [address] [phone] Lea Hodges MD [facility] [place] [address] documented as of this encounter Goals Goal [...] failure documented in this encounter Care Teams Accessioner Relationship Specialty Start Date End Date Oleg Trinidad MD [address] [place] [address] PCP - General Family Medicine 07/31/21 documented as of this encounter
--- OUTSIDE RECORDS SUMMARY | 2023-10-16 01:24 | XMS_ITS | Encounter Summary ---
[place] [address] Care Team Providers Care Catering Assistant Name Role Phone Oleg Trinidad MD Primary Care Provider [phone] Reason for Visit * Reason Onset Date Comments Post Procedure Call 12/20/2021 Encounter Details Date Type Department Care Team (Late st Contact Info) Description 12/20/2021 Notes Only Cardiology at [address] [address] Denisse Scott, RN Post Procedure Call Social History Tobacco Use Types [...] as of this encounter Progress Notes * Denisse Scott RN - 12/20/2021 7:56 AM EDTSummary: Post Procedure Call: ICD implant EP RN Post-Procedure Note: Date of Follow Up Call: 12/20/2021 Spoke With: Patient Procedure Type (choose all that apply): ICD Performing MD: Red Date of Procedure: 12/12/2021 Date of Discharge: 12/13/2021 Follow Up EP Visit Scheduled?: Yes Date of EP Visit: 12/27/2021 Intra or Post Procedure Event: Did any Intra or Post Procedure Events Occur?: No Medications at Hospital Discharge: Aspirin: Yes P2Y12 Inhibitor: No Other Antiplatelet: No Warfarin: No DOAC: No Other Anticoagulant: No Beta Myrna (any): Yes Digoxin: No Diltiazem/Verapamil: No Amiodarone: No Dofetilide: No Dronedarone: No Flecainide: No Propafenone: No Sotalol: No PPI: No Other Antiarrhythmic: No Assessment: Access Site Assessment (Choose all that apply): None of the above Device Pocket Assessment (Choose all that apply): None of the above UTI symptoms (Choose all that apply): None of the above Signs and Symptoms of Infection (Choose all that apply): None of the above Headaches: No Complaints of: (choose all that apply): None of the above Free Text Note: Follow Up Instruction: Wound Care: -Wound will heal in approx 7-10 days.It may be tender, it may appear slightly red and bumpy and there may -be dry, crusty scabbing. These are all normal. -Inspect the wound for signs of infection which can be drainage, swelling, warmth or increased painor redness. - Do not scratch or rub the wound or apply any creams, lotions or ointments on the wound until it is completely healed. - You may cover the wound with gauze if it rubs on clothing and causes you discomfort. - Avoid direct water pressure on the wound - continue this for 7 - 10 days. Do not submerge wound for 14 days - Do not scrub or wash would if Dermabond is used - You may remove your dressing on: December 19 Arm Restrictions: - Do not raise your elbow on the operated side above the shoulder for 6 weeks - Do not lift greater than 7 pounds (equal to a gallon of milk) on the operated side for 6 weeks. - Do not fully extend this arm in any direction away from the torso for 6 weeks - You may use your arm on the operated side, but do not make extreme movement (such as stretching or reaching for a heavy object) for 6 weeks - No driving for maximum of 1 week documented in this encounter Plan of Treatment Upcoming Encounters Date Type Department Care Team (Late st Contact Info) Description 10/17/2023 10:30 AM EDT Appointment Non-[place] [phone] [place] [address] 10/17/2023 11:40 AM EDT Office Visit Cardiology at [address] [phone] [place] [address] 11/15/2023 10:00 AM EDT Hospital Encounter Non-[place] [phone] Arrived 11/21/2023 1:40 PM EDT Office Visit Cardiology at [address] [phone] Lea Hodges MD [facility] [place] [address] documented as of this encounter Goals Goal Patient Goal Type Associated Problems Recent Progress Patient-Stated? Author [facility] Medication Compliance and Understanding Patient Facing Action Plan No Yahir Mcallister, [facility] Note: To live and see improvement in her heart function and ability to have good quality of life documented as of this encounter Visit Diagnoses Not on filedocumented in this encounter Care Teams Catering Assistant Relationship Specialty Start Date End Date Oleg Trinidad MD [address] [place] [address] PCP - General Family Medicine 07/31/21 documented as of this encounter
--- OUTSIDE RECORDS SUMMARY | 2023-10-16 01:24 | XMS_ITS | Encounter Summary ---
Author Organization [facility] [place] [address] Care Team Providers Care Accelerator Technician Name Role Phone Oleg Trinidad MD Primary Care Provider [phone] Reason for Visit * Auth/Cert Specialty Diagnoses / Procedures Referred By Contac t Referred To Contact Diagnoses Cardiomyopathy Cardiomyopathy, unspecified type [I42.9] HFrEF (heart failure with reduced ejection fraction) [I50.20] Procedures PRO INSERT/REPOSTION ELECTRD LEADS ELECTROPHYSIOLOGY PROCEDURE INSERT\REPOSITION LEAD FOR SINGLE\DUAL PACER & INSERT GEN. (WRVU 15.17) Ashlee Moon MD [facility] [place] [address] [facility] Referral ID Status Reason Start Date Expiration Date Visits Re quested Visits Authorized [id number] 1 1 Encounter Details Date Type Department Care Team (Latest Contact Info) Description 12/12/2021 6:27 AM EDT - 12/13/2021 11:00 AM EDT Hospital Encounter [place] [address] Ashlee Moon MD [facility] [place] [address] Cardiomyopathy, unspecified type; HFrEF (heart failure with reduced ejection fraction); Coronary artery disease, unspecified vessel or lesion type, unspecified whether angina present, unspecified whether lytton or transplanted heart Discharge Disposition: Home Social History Tobacco Use [...] Sign Reading Time Taken Comments Blood Pressure 123/58 12/13/2021 7:20 AM EDT Pulse 68 12/13/2021 9:47 AM EDT Temperature 37 ??C (98.6 ??F) 12/13/2021 7:20 AM EDT Respiratory Rate 13 12/13/2021 9:47 AM EDT Oxygen Saturation 96% 12/13/2021 9:47 AM EDT Inhaled Oxygen Concentration - - Weight 67 kg (147 lb 11.2 oz) 12/12/2021 6:38 AM EDT Height 160 cm (5' 3) 12/12/2021 6:38 AM EDT Body Mass Index 26.16 12/12/2021 6:38 AM EDT documented in this encounter Discharge Summaries * Mike Jackson PA - 12/13/2021 8:00 AM EDT Cardiac Electrophysiology Discharge Summary Patient Name: Stacy Esparza Patient Age: 66 y.o. Language: Belgian Race: White Ethnicity: Not nor Admit date: 12/12/2021 Discharge date and time: 12/13/2021 @10:30 AM Attending Physician: Ashlee Moon MD Discharge Physician: Heidy Coronado MD Follow-up Recommendations for Providers: 1. Standard post implant discharge instructions (see below): 2. Medications as listed above. ?? HOLD METFORMIN (GLUCOPHAGE) 48 HOURS. MAY RESUME ON Saturday IN AM ?? You may use ice packs over the incision. Make sure to use a cloth seconds sorter (such as a towel) in between the ice pack and the bare skin and that it stays DRY. 3. Follow up in pacemaker clinic in 10 days for a wound check and device check. Inpatient Provider Contact Information: Cardiac Electrophysiology - Discharge Diagnoses (Hospital Problems) and Secondary Diagnoses (Chronic Problems): Active Hospital Problems Diagnosis ??? Cardiomyopathy Resolved Hospital Problems No resolved problems to display. Active Non-Hospital Problems Diagnosis ??? CAD (coronary artery disease) ??? Other primary cardiomyopathies ??? Alcohol abuse, unspecified ??? Hyperpotassemia ??? Cardiogenic shock ??? Unspecified hypothyroidism Operations/Major Procedures: 1. Single-chamber ICD implant 12/12/2021: LEAD AND GENERATOR DATA: ?? Sewing Machine Repairer Helper Model # Serial # Generator Medtronic [id number] Ventricular Lead Medtronic [id number] PACE/SENSE DATA: ?? Sensed wave (mV) Threshold (V) Impedance (Ohms) HVB Imp (Ohms) Ventricle 12.9 0.75V @ 0.4 ms 684 82 ? FINAL PROGRAMMING: Pacing: Mode Lower rate (ppm) Upper rate (ppm) ?? VVI 40 - ?? TACHYCARDIA PROGRAMMING: Setting Interval Initial Detect Redetect VF 300 30/40 12/16 FVT / VT - - - Monitor 400 - - ?? History of Presentation: 66 y.o. female with a history of mixed ischemic/non-ischemic cardiomyopathy, who presented for elective single-lead left-sided ICD implant for primary prevention. Hospital Course: Patient underwent acutely successful left-sided single chamber ICD implantation on 12/12/2021 without acute complications. She had a POD#1 device check that showed normal functioning ICD. She had a POD#1 chest x-ray that showed normal functioning device with likely mild atelectasis and no significant acute cardiopulmonary abnormalities. She remained hemodynamically stable without complaints at time of discharge. Vital Signs at Discharge: BP: 123/58, Heart Rate: 68, Temp: 37 ??C (98.6 ??F), Resp: 13, BMI (Calculated): 26.16 Height: 160 cm (5' 3) (12/12/21 0638) Weight: 67 kg (147 lb 11.2 oz) (12/12/21 0638) Functional and Cognitive Status: Stable Admission Diagnoses: Cardiomyopathy [I42.9] Discharge Diagnoses: Cardiomyopathy [I42.9] ICD in place [Z95.810] Admission Condition: good Indication for Admission: Medical necessity/monitoring post-procedure ICD implant Consults: none Important Studies and Lab Data: Lab Results Component Value Date WBC 10.5 (H) 12/12/2021 HGB 15.6 (H) 12/12/2021 HCT 46.8 (H) 12/12/2021 PLATELET 283 12/12/2021 No results for input(s): INR in the last 168 hours. Lab Results Component Value Date NA 137 12/12/2021 K 4.9 12/12/2021 CL 101 12/12/2021 BUN 14 12/12/2021 CREATININE 0.90 12/12/2021 MAGNESIUM 0.98 02/26/2021 Discharge Exam: Please see physical exam in day of discharge progress note. No changes. Discharge Conditions/Prognosis: good Discharge to: home Updated Allergies/ADRs: Allergies Allergen Reactions ??? Lisinopril Other (See Comments) cough Other reaction(s): Cough ??? Venom-Honey Bee Immunizations Given this Hospitalization: There is no immunization history on file for this patient. Discharge Medications: Your Medications Continued medications with new dosing Dose Details metFORMIN 1,000 mg Tab Commonly known as: Glucophage Take 1 tablet by mouth 2 times daily (with meals). Start taking on: December 15, 2021 What changed: These instructions start on December 15, 2021. If you are unsure what to do until then, ask your doctor or other care provider. 1,000 mg Quantity: 60 tablet Refills: 12 Continued medications, unchanged Dose Details acetaminophen 325 mg Tab Commonly known as: Tylenol 1 tablet orally as needed Refills: 0 allopurinoL 100 mg Tab Commonly known as: Zyloprim Take 100 mg by mouth as needed (for Gout attacks). 100 mg Refills: 0 aspirin EC 81 mg Tbec Take 81 mg by mouth daily. 81 mg Refills: 0 atorvastatin 80 mg Tab Commonly known as: Lipitor Take 1 tablet by mouth every evening. 80 mg Quantity: 90 tablet Refills: 3 colchicine 0.6 mg Tab Commonly known as: Colcrys Take 0.6 mg by mouth daily as needed. 0.6 mg Refills: 0 Entresto 24-26 mg Tab tablet Take 1 tablet by mouth 2 times daily. Generic drug: sacubitriL-valsartan 1 tablet Quantity: 180 tablet Refills: 3 EPINEPHrine 0.3 mg/0.3 mL Atin Inject 0.3 mg into the muscle. 0.3 mg Refills: 0 ergocalciferoL (vitamin D2) 50,000 unit Cap Commonly known as: vitamin D2 Take 50,000 Units by mouth once a week. 50,000 Units Refills: 0 famotidine 20 mg Tab Commonly known as: Pepcid Take 1 tablet by mouth 2 times daily. 20 mg Quantity: 30 tablet Refills: 12 Jardiance 10 mg Tab Take 1 tablet by mouth daily. Generic drug: empagliflozin 1 tablet Quantity: 30 tablet Refills: 11 levothyroxine 50 mcg Tab Commonly known as: Synthroid Take 1 tablet by mouth daily. 50 mcg Quantity: 90 tablet Refills: 3 magnesium oxide 400 mg (241.3 mg magnesium) Tab Commonly known as: Mag-Ox Take 1 tablet by mouth 2 times daily. 400 mg Quantity: 30 tablet Refills: 12 metoprolol succinate XL 100 mg Tablet sr Commonly known as: Toprol-XL Take 1 tablet by mouth daily. 100 mg Quantity: 30 tablet Refills: 12 multivitamin Tab Commonly known as: THERAGRAN Take 1 tablet by mouth daily. 1 tablet Refills: 0 naproxen sodium 220 mg Cap Commonly known as: ALEVE Take by mouth. Refills: 0 nitroGLYcerin 0.4 mg Subl Commonly known as: Nitrostat Place 1 tablet under the tongue daily as needed for Chest pain. 0.4 mg Quantity: 90 tablet Refills: 3 spironolactone 25 mg Tab Commonly known as: Aldactone Take 0.5 tablets by mouth daily. 12.5 mg Quantity: 90 tablet Refills: 3 traMADoL 50 mg Tab Commonly known as: Ultram Take 50 mg by mouth every 12 hours as needed for Pain (taking only 1 tab every morning). 50 mg Refills: 0 Smoking Status at Discharge: Social History Tobacco Use Smoking Status Current Some Day Smoker ??? Packs/day: 0.25 ??? Years: 50.00 ??? Pack years: 12.50 ??? Types: Cigarettes ??? Last attempt to quit: 02/21/2021 ??? Years since quittin.8 Smokeless Tobacco Never Used Instructions Given to Patient at Discharge: Patient Instructions FINAL ICD/PACEMAKER RECOMMENDATIONS: 1. Standard post implant discharge instructions (see below): 2. Medications as listed above. ?? HOLD METFORMIN (GLUCOPHAGE) 48 HOURS. MAY RESUME ON Saturday IN AM ?? You may use ice packs over the incision. Make sure to use a cloth seconds sorter (such as a towel) in between the ice pack and the bare skin and that it stays DRY. 3. Follow up in pacemaker clinic in 10 days for a wound check and device check. DEVICE CLINIC 1. You will be scheduled for a ~10 day wound check in the Device Clinic for: ?? Incision check ?? Device interrogation ?? Review of remote follow up and set up of home monitor 2. Your device will be checked every 3 months (either in clinic or by remote). 3. Prior to discharge, you will be given a home monitor so that your device can send clinical data to the device clinic nurses. If you are unable to set this up at home prior to your wound check, we will review this at the time of your appointment NOTE: The device data we review from your home monitor is comparable to an in- office appointment. Therefore, your insurance company will be billed for review of your data. Depending on your coverage,you may be responsible for a portion of his charge. We recommend that you contact your insurance carrier for more details about your particular coverage. WOUND CARE FOR YOUR INCISION: Your wound will usually heal in 7-10 days. Your wound may be tender, it may appear slightly red andbumpy and there may be dry, crusty scabbing. These are all normal. How to Care for your Incision: - Either you or someone with you needs to look at the wound every day. - Report any signs of infection immediately: ?? Drainage ?? Swelling ?? Warmth ?? Increased pain ?? Fevers/chills - Call if you are concerned about infection or the edges of the wound separate - A needle should not be put into the wound area because this can damage the device. ?? You may need to remind your healthcare provider of this concern - There are sutures inside the incision that will dissolve on their own - Do not scratch or rub the wound - Do not apply creams, lotions, or ointments to the incision until is completely healed. - You may cover the wound with gauze if it rubs on clothing and causes discomfort - Protect your wound from injury until the skin has had sufficient time to heal - Do not shower for 48 hours after implant - While in the shower, turn your back to the water nozzle so you avoid direct water pressure on thewound. Continue this for 7-10 days. - Do not submerge the incision (bathtubs, hot tubs, or swimming) for at least two weeks Your incision has been closed with: SteriStrips - These are thin adhesive strips placed over your incision to help it heal. - Leave them in place until they fall off (approximately 10-14 days) - Do not scratch, rub, or pick at them. This may pull at your incision before it is completely healed, which can increase the risk of infection. Your incision has also been covered with a Mepilex dressing -This is a silver-impregnated bandage which stays on for 7 days -Remove bandage 12/19/21 CALL IMMEDIATELY: If you develop chest pain, shortness of breath, bleeding, discharge from the incision, opening of the incision and/or fever/temperature >100 degrees F. The office scheduling phone number is [phone]. ARM MOVEMENT RESTRICTIONS POST-IMPLANT - Do not raise your elbow on the operated side above the shoulder for 4 weeks - Do not lift greater than 7 pounds (equal to a gallon of milk) on the operated side for 4 weeks. - Do not fully extend this arm in any direction away from the torso for 4 weeks - You may use your arm on the operated side, but do not make extreme movement (such as stretching or reaching for a heavy object) for 4 weeks - No driving for one week If you have any questions or concerns about this product, please call the Cardiac ElectrophysiologyTriage Nurse at [phone], option #3. General Instructions None Future Appointments and Orders Future Appointments and Orders Future Appointments Provider Department Dept Phone 01/15/2022 8:00 AM DANYELL, THREE L Lab [address] [place] [address] Arrive at: Sort Line Worker Area 01/15/2022 9:00 AM Alisa De Leon MD Cardiology at [facility] Arrive at: Sort Line Worker Area [phone] Discharge References/Attachments ICD Shocks: General Info (Belgian) ICD: Implantable Cardioverter-Defibrillator: Post-op (Belgian) documented in this encounter Discharge Instructions * Patient Instructions* Mike Jackson PA - 12/12/2021 10:32 AM EDT FINAL ICD/PACEMAKER RECOMMENDATIONS: 1. Standard post implant discharge instructions (see below): 2. Medications as listed above. HOLD METFORMIN (GLUCOPHAGE) 48 HOURS. MAY RESUME ON Saturday IN AM You may use ice packs over the incision. Make sure to use a cloth seconds sorter (such as a towel) in between the ice pack and the bare skin and that it stays DRY. 3. Follow up in pacemaker clinic in 10 days for a wound check and device check. DEVICE CLINIC 1. You will be scheduled for a ~10 day wound check in the Device Clinic for: ?? Incision check ?? Device interrogation ?? Review of remote follow up and set up of home monitor 2. Your device will be checked every 3 months (either in clinic or by remote). 3. Prior to discharge, you will be given a home monitor so that your device can send clinical data to the device clinic nurses. If you are unable to set this up at home prior to your wound check, we will review this at the time of your appointment NOTE: The device data we review from your home monitor is comparable to an in- office appointment. Therefore, your insurance company will be billed for review of your data. Depending on your coverage,you may be responsible for a portion of his charge. We recommend that you contact your insurance carrier for more details about your particular coverage. WOUND CARE FOR YOUR INCISION: Your wound will usually heal in 7-10 days. Your wound may be tender, it may appear slightly red andbumpy and there may be dry, crusty scabbing. These are all normal. How to Care for your Incision: - Either you or someone with you needs to look at the wound every day. - Report any signs of infection immediately: Drainage Swelling Warmth Increased pain Fevers/chills - Call if you are concerned about infection or the edges of the wound separate - A needle should not be put into the wound area because this can damage the device. You may need to remind your healthcare provider of this concern - There are sutures inside the incision that will dissolve on their own - Do not scratch or rub the wound - Do not apply creams, lotions, or ointments to the incision until is completely healed. - You may cover the wound with gauze if it rubs on clothing and causes discomfort - Protect your wound from injury until the skin has had sufficient time to heal - Do not shower for 48 hours after implant - While in the shower, turn your back to the water nozzle so you avoid direct water pressure on thewound. Continue this for 7-10 days. - Do not submerge the incision (bathtubs, hot tubs, or swimming) for at least two weeks Your incision has been closed with: SteriStrips - These are thin adhesive strips placed over your incision to help it heal. - Leave them in place until they fall off (approximately 10-14 days) - Do not scratch, rub, or pick at them. This may pull at your incision before it is completely healed, which can increase the risk of infection. Your incision has also been covered with a Mepilex dressing -This is a silver-impregnated bandage which stays on for 7 days -Remove bandage 12/19/21 CALL IMMEDIATELY: If you develop chest pain, shortness of breath, bleeding, discharge from the incision, opening of the incision and/or fever/temperature >100 degrees F. The office scheduling phone number is [phone]. ARM MOVEMENT RESTRICTIONS POST-IMPLANT - Do not raise your elbow on the operated side above the shoulder for 4 weeks - Do not lift greater than 7 pounds (equal to a gallon of milk) on the operated side for 4 weeks. - Do not fully extend this arm in any direction away from the torso for 4 weeks - You may use your arm on the operated side, but do not make extreme movement (such as stretching or reaching for a heavy object) for 4 weeks - No driving for one week If you have any questions or concerns about this product, please call the Cardiac ElectrophysiologyTriage Nurse at [phone], option #3. * Attachments The following attachments cannot be sent through Care Everywhere. * ICD Shocks: General Info (Belgian) * ICD: Implantable Cardioverter-Defibrillator: Post-op (Belgian) documented in this encounter Medications at Time of Discharge Medication Sig Dispensed Refills Start Date End Date metFORMIN (Glucophage) 1,000 mg Tablet Take 1 [...] mouth daily. 90 tablet 3 02/27/2021 03/15/2022 documented as of this encounter Progress Notes * Heidy Coronado MD - 12/13/2021 10:46 AM EDT Cardiac Electrophysiology Post-Implant Device Programming/Day of Discharge Note Stacy Esparza [id number] 12/13/2021 History: Stacy Esparza is a 66 y.o. female with a history of mixed ischemic/non- ischemic cardiomyopathy, who is POD#1 of single-lead left-sided ICD implant for primary prevention. Physical Exam: Vitals: 12/13/21 0720 12/13/21 0900 12/13/21 0944 12/13/21 0947 BP: 123/58 BP Location (NBP): Left arm Patient Position: Lying Pulse: 72 62 77 68 Resp: 12 15 19 13 Temp: 37 ??C (98.6 ??F) TempSrc: Oral SpO2: 92% 95% 92% 96% Weight: Height: General- No acute distress, laying comfortably in bed. Skin- Pocket incision is CDI. Silver Mepilex dressing in place Cardiovascular- S1/S2 regular rate and rhythm. No murmur. Lungs- Clear to auscultation bilaterally Neuro- A&Ox3 Device Interrogation: LEAD AND GENERATOR DATA: ?? Sewing Machine Repairer Helper Model # Serial # Generator Medtronic [id number] Ventricular Lead Medtronic [id number] Diagnostics Pacing Mode: VVI 40 Presenting EGMs: V-sensed Underlying Rhythm: Sinus bradycardia 40-50 Atrial Episodes: None Ventricular Episodes: 1 NSVT on 12/12 PM lasting several seconds Atrial Pacing: ---- Ventricular Pacing: <0.1% Thoracic Impedance: Initializing HR Histogram: Appropriate Battery and Leads Voltage: Initializing Status: Initializing Magnet Rate: ---- Charge Time: N/A Impedances (ohms) Sensing (mV) Thresholds HV RA RV LV RA RV LV RA RV LV RV=71 --- 532 ---- --- 11.0 ---- ----- 0.50V @ 0.40ms ----- POD#1 CXR: FINDINGS: Expected appearance of the defibrillator. Streaky opacity in the left midlung is likely atelectatic. Lungs are otherwise clear. Gertrudis and cardiac mediastinal silhouette are normal. No pleural collection or pneumothorax. ?? IMPRESSION Expected findings. Impression: 66 y.o. female who is s/p single-lead ICD implant for mixed cardiomyopathy LVEF <35% for primaryprevention against sudden cardiac . - Appropriate device function post-implant - CXR negative for post-implant complications - No programming changes made Plan: 1. Reviewed standard post-implant discharge instructions (see patient instructions) including arm restrictions, wound care, bathing, and driving 2. Hold Metformin 48 hours in setting of contrast administration 3. Follow up in device clinic for wound/device check in ~10 days SHEREE Solano 12/13/2021 Addendum I personally interviewed and examined the patient, reviewed the data Normal device function Acceptable lead location on CXR Stable for discharge (once issues re: O2 sat resolved) HEIDY CORONADO MD * Nereyda Cash RN - 12/12/2021 9:51 PM EDT 2145: Pt had 10 beats of VTach (non-sustaining) on tele and RN assessed pt, asymptomatic. Paged ,awaiting response. 2215: at bedside, ordering labs for AM and to notify if VTach occurs again * Debi Frye RN - 12/12/2021 12:23 PM EDT Break coverage. * Elida Baker RN - 12/12/2021 10:34 AM EDT 0949 Patient admitted to PACU. Hand off received from Duglas Ashford CRNA. Systolic Hypotension in 80's, MAP >60, treatment not indicated as long as mean >60 per Duglas Ashford.care assumed. Assessments as documented. Monitors on, alarms audible and individualized to patient. 1020 Ashlee Moon MD aware of hypotension. Patient tolerating po fluids. 1030 Dr Moon at bedside. OK to transfer to floor while hypotensive as long as patient assymptomatic 1045 PACU D/C criteria met 1250 care resumed * Mare Blank MD - 12/12/2021 10:23 AM EDT Brief PACU note: Called to bedside that patient was hypotensive (systolic BP 75mmHg). S/p lead insertion for pacemaker. The patient was asymptomatic with normal mentation. Ms Esparza reports that she is hypotensive at baseline since being started on entresto. She reportsher systolic blood pressures have been in the 70s at home (also without symptoms) and once at her doctor's office (at which time the doctor in clinic was quite alarmed and told her to sit/lay down, again symptomatic). Fortunately, she feels well and has no complaints. Plan: continue to monitor. Instructed patient to notify RN or any PACU member if she feels lightheaded, weak or confused. Mare Blank MD PACU/vice president talent management, p. [phone] documented in this encounter H&P Notes * Trevon Calix MD - 12/12/2021 7:05 AM EDT Images from the original note were not included. Clinical Cardiac Electrophysiology Interval History and Physical Exam For Planned Procedure HISTORY OF PRESENT ILLNESS: Stacy Esparza is a 66 y.o. female with a history of mixed ischemic / non- ischemic cardiomyopathy presents for primary prevention ICD. Relevant TTE results: Interpretation Summary Compared to the prior study 02/22/21 the left ventricle remains severely diliated with severely reduced global function and elevated filling pressures. The right ventricle function has improved to low-normal. There is less mitral regurgitation. (LVEF 24%) Primary Blindmaker: Dr. Moon ROS: Denies recent fevers, chills. No syncope No orthopnea No bleeding No neurological changes PHYSICAL EXAM: Vital Signs: BP 138/73 Pulse 63 Temp 36.1 ??C (97 ??F) (Temporal) Resp 20 Ht 160 cm (5' 3) Wt 67 kg (147 lb 11.2 oz) SpO2 96% BMI 26.16 kg/m?? PROBLEM LIST: Patient Active Problem List Diagnosis Code ??? 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 Alcohol abuse, unspecified F10.10 ??? Hyperpotassemia E87.5 ??? Cardiogenic shock R57.0 ??? Unspecified hypothyroidism E03.9 ??? CAD (coronary artery disease) I25.10 ALLERGIES: Allergies Allergen Reactions ??? Lisinopril Other (See Comments) cough Other reaction(s): Cough ??? Venom-Honey Bee MEDICATIONS: Current Facility-Administered Medications Medication Dose Route Frequency Provider Last Rate Last Admin ??? sodium chloride 0.9 % (flush) (BD PosiFlush Normal Saline 0.9) flush 5-20 mL 5-20 mL Intravenous Q1 Min PRN Sharifa Ruby MD ??? lidocaine (Xylocaine) 1% (10 mg/mL) injection 3 mg 0.3 mL Subcutaneous Once PRN Sharifa Ruby MD ??? lactated ringers infusion 1,000 mL Intravenous Continuous Sharifa Ruby MD ??? acetaminophen (Tylenol) tablet 1,000 mg 1,000 mg Oral Once Sharifa Ruby MD ??? ceFAZolin (Ancef) 2 g in dextrose 5% 100 mL infusion 2 g Intravenous Once Ashlee Moon MD PAST SURGICAL HISTORY: No past surgical history on file. LAB VALUES: Laboratory Data: Lab Results Component Value Date WBC 8.9 03/09/2021 HGB 14.1 03/09/2021 HCT 42.4 03/09/2021 MCV 91.4 03/09/2021 Lab Results Component Value Date NA 137 07/31/2021 K 5.0 07/31/2021 CL 99 07/31/2021 CO2 26 07/31/2021 BUN 16 07/31/2021 CREATININE 1.04 07/31/2021 GLUCOSE 100 07/31/2021 GLUCFASTING 103 (H) 02/25/2021 CALCIUM 9.5 07/31/2021 ESTGFR 56 (L) 07/31/2021 Lab Results Component Value Date TSH 3.99 02/21/2021 Lab Results Component Value Date INR 1.2 02/21/2021 ASSESSMENT AND PLAN: Stacy Esparza is a 66 y.o. female with a history of mixed ischemic / non- ischemic CM presents for primary prevention ICD. Mallampati:II (soft palate, uvula, fauces visible) ASA:2 Antibiotics: Ancef -Patient consented for single chamber ICD -Will need to start with venogram on the left (history of access port) Rationales for, intended benefits and potential risk of planned procedures reviewed. The patient indicated understanding and agreement with the plan. Informed consent signed. Trevon Calix MD Cardiac Electrophysiology Fellow [facility] Pager [phone] 12/12/2021 documented in this encounter Plan of Treatment Upcoming Encounters Date Type Department Care Team (Late st Contact Info) Description 10/17/2023 10:30 AM EDT Appointment [place] [address] [place] [address] 10/17/2023 11:40 AM EDT Office Visit Cardiology at [address] [phone] [place] [address] 11/15/2023 10:00 AM EDT Hospital Encounter [place] [address] Arrived 11/21/2023 1:40 PM EDT Office Visit Cardiology at [address] [place] [address] [facility] [place] [address] Pending Results Name Type Priority Associated Diagnoses Date/Time Electrophysiology Procedure Electrophysiology Routine Cardiomyopathy, unspecified type HFrEF (heart failure with reduced ejection fraction) 12/12/2021 9:46 AM EDT Scheduled Orders Name Type Priority Associated Diagnoses Orde r Schedule INSERT\REPOSITION LEAD FOR SINGLE\DUAL PACER & INSERT GEN. Procedures Routine Cardiomyopathy, unspecified type HFrEF (heart failure with reduced ejection fraction) One Time for 1 Occurrences starting 11/30/2021 until 11/30/2021 documented as of this encounter Goals Goal Patient Goal Type Associated Problems Recent Progress Patient-Stated? Author [facility] Medication Compliance and Understanding Patient Facing Action Plan No Yahir Mcallister, [facility] Note: To live and see improvement in her heart function and ability to have good quality of life documented as of this encounter Procedures Procedure Name Priority Date/Time Associated Diagnosis Comments POCT GLUCOSE Routine 12/13/2021 7:25 AM EDT EKG 12-LEAD Routine 12/13/2021 6:14 AM EDT Cardiomyopathy , unspecified type XR CHEST PA AND LATERAL Routine 12/13/2021 5:44 AM EDT POCT GLUCOSE Routine 12/12/2021 5:53 PM EDT ELECTROPHYSIOLOGY PROCEDURE Routine 12/12/2021 9:46 AM EDT Cardiomyopathy , unspecified type HFrEF (heart failure with reduced ejection fraction) Procedure Note - Trevon Calix MD / Ashlee Moon MD - 12/12/2021 9:46 AM EDTThis note is in progress. 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 DIAGRAMMER AND SEAMER: Ashlee Moon M.D., M.H.S. ASSISSTANT: Trevon Calix M.D. PROCEDURE: Informed consent was obtained. The patient was brought to the CardiacElectrophysiology laboratory in a post-absorptive, fasting state afterreceiving 3 scrubs to the implant area. A peripheral IV was in place.Continuous electrocardiographic, blood pressure, oxygen saturation andexpired carbon dioxide monitoring was initiated. Self-adhesivecardioversion patches were positioned on the chest. A venogram wasperformed prior to prepping of implant site using 10 cc contrast whichindicated widely patent left axillary system. The implant site was then prepped and draped in the usual sterile fashion.The implant area was infiltrated with a 50/50 mixture of lidocaine (1%)and bupivicaine (0.5%). An incision was made medial to the leftdeltopectoral groove and sharp and blunt dissection was used down to thelevel of the pre-pectoralis fascia. Hemostasis was maintained withelectrocautery. A device pocket was fashioned. Axillary venous access as obtained once using ultrasound guidance.Following sheath placement in the subclavian vein, an ICD lead wasadvanced under fluoroscopic guidance and positioned in the right ventriclewhere a stable position with adequate sensing and pacing characteristicswere obtained. The lead was anchored to the pre-pectoralis fascia using 0silk, non-absorbable suture. The pocket was flushed with antibioticsolution. The generator was connected to the lead, tested and found to befunctioning satisfactorily. The generator was implanted in the pocket, andthe pocket closed in layers using 2-0, 3-0 and 4-0 absorbable sutures. Theskin was closed using a sub-cuticular technique. Steri-strips and abio-occlusive dressing were applied to the skin. LEAD AND GENERATOR DATA: Sewing Machine Repairer Helper Model # Serial # Generator Medtronic [id number] Ventricular Lead Medtronic [id number] PACE/SENSE DATA: Sensed wave (mV) Threshold (V) Impedance (Ohms) HVB Imp (Ohms) Ventricle 12.9 0.75V @ 0.4 ms 684 82 FINAL PROGRAMMING: Pacing: Mode Lower rate (ppm) Upper rate (ppm) VVI 40 - TACHYCARDIA PROGRAMMING: Setting Interval Initial Detect Redetect VF 300 30/40 12/16 FVT / VT - - - Monitor 400 - - RADIOLOGY SUMMARY: Total Fluoro time (minutes) 2.6 Dose Area Product (cGycm2) 3 Gy-Cm2 CONCLUSIONS: 1. Successful left sided ICD placement. 2. Patent left sided venous anatomy. I, Ashlee Moon MD, was present throughout the procedure. Ashlee Moon MD 12/12/2021 3:09 PM HEMOGRAM Routine 12/12/2021 7:20 AM EDT Coronary artery disease, unspecified vessel or lesion type, unspecified whether angina present, unspecified whether lytton or transplanted heart DIFFERENTIAL, AUTOMATED Routine 12/12/2021 7:20 AM EDT Coronary artery disease, unspecified vessel or lesion type, unspecified whether angina present, unspecified whether lytton or transplanted heart BETA HYDROXYBUTYRATE Routine 12/12/2021 7:20 AM EDT HC CBC,PLT & AUTO DIFF Routine 12/12/2021 7:20 AM EDT Coronary artery disease, unspecified vessel or lesion type, unspecified whether angina present, unspecified whether lytton or transplanted heart BASIC METABOLIC PANEL (NON-FASTING) Routine 12/12/2021 7:20 AM EDT Coronary artery disease, unspecified vessel or lesion type, unspecified whether angina present, unspecified whether lytton or transplanted heart POCT GLUCOSE Routine 12/12/2021 6:43 AM EDT documented in this encounter Results * POCT Glucose (12/13/2021 7:25 AM EDT) POC Glucose 102 65 - 199 mg/dL [facility] Comment: Supplemental ranges: <140 mg/dL before meals <180 mg/dL all other times of the day Blood 12/13/2021 7:25 AM EDT 12/13/2021 7:25 AM EDT Ashlee Moon MD POINT OF CARE TEST O RDERABLES Performing Organization Address [facility] Co de Phone Number [facility] [place] [address] * EKG 12 Lead (12/13/2021 6:14 AM EDT) Ventricular rate 68 BPM MUSE SYSTEM Atrial Rate 68 BPM MUSE SYSTEM P-R Interval 154 ms MUSE SYSTEM QRS Duration 108 ms MUSE SYSTEM Q-T Interval 450 ms MUSE SYSTEM QTC Calculated (Bezet) 478 ms MUSE SYSTEM Calculated P Allen 71 degrees MUSE SYSTEM Calculated R Allen -67 degrees MUSE SYSTEM Calculated T Allen 130 degrees MUSE SYSTEM INTERPRETATION Normal sinus rhythm Left axis deviation Inferior infarct (cited on or before 13-DEC-2021) Anterolateral infarct (cited on or before 13-DEC-2021) Abnormal ECG When compared with ECG of 24-NOV-2021 15:50, QRS axis Shifted left I personally reviewed the tracing and edited the fellows interpretation Confirmed by fellow MD Siva, Max ([id number]) on 12/13/2021 6:19:39 PM Confirmed by MD Heber, Brady Harrell ([id number]) on 12/14/2021 1:37:19 PM MUSE SYSTEM 12/13/2021 6:14 AM EDT 12/14/2021 1:37 PM EDT Ashlee Moon MD ECG ORDERABLES Performing Organization Address [facility] Co de Phone Number MUSE SYSTEM * XR Chest PA & Lateral (Generic) (12/13/2021 5:44 AM EDT) Anatomical Region Laterality Modality Chest N/A Digital Radiogra phy Impressions 12/13/2021 6:07 AM EDT Expected findings. Thank you for letting us participate in the care of this patient. ??If you are a health care provider and have any questions regarding this report, please contact the number below. ??For patients who have questions please contact the health residential care officer that requested your imaging first. ? Narrative 12/13/2021 6:07 AM EDT EXAMINATION: XR CHEST PA AND LATERAL (GENERIC) CLINICAL HISTORY: Post CIED implantation, assess for lead placement and rule out pneumothorax TECHNIQUE: PA and lateral views of the chest COMPARISON: Chest radiograph 02/25/2021 FINDINGS: Expected appearance of the defibrillator. Streaky opacity in the left midlung is likely atelectatic. Lungs are otherwise clear. Gertrudis and cardiac mediastinal silhouette are normal. No pleural collection or pneumothorax. Procedure Note Chelsey Collins MD - 12/13/2021 EXAMINATION: XR CHEST PA AND LATERAL (GENERIC) CLINICAL HISTORY: Post CIED implantation, assess for lead placement andrule out pneumothorax TECHNIQUE: PA and lateral views of the chest COMPARISON: Chest radiograph 02/25/2021 FINDINGS: Expected appearance of the defibrillator. Streaky opacity in the leftmidlung is likely atelectatic. Lungs are otherwise clear. Gertrudis and cardiacmediastinal silhouette are normal. No pleural collection or pneumothorax. IMPRESSION Expected findings. Thank you for letting us participate in the care of this patient. If youare a health care provider and have any questions regarding this report,please contact the number below. For patients who have questions please contactthe health residential care officer that requested your imaging first. Ashlee Moon MD IMG DX ORDERABLES * POCT Glucose (12/12/2021 5:53 PM EDT) POC Glucose 106 65 - 199 mg/dL [facility] Comment: Supplemental ranges: <140 mg/dL before meals <180 mg/dL all other times of the day Blood 12/12/2021 5:53 PM EDT 12/12/2021 5:53 PM EDT Ashlee Moon MD POINT OF CARE TEST O RDERABLES Performing Organization Address City/[facility]/ZIP Co de Phone Number [facility] [place] [address] * Beta Hydroxybutyrate (12/12/2021 7:20 AM EDT) BOHB <0.10 0.00 - 0.30 mmol/L [facility] Comment: Reference range: ??0.00-0.30 mmol/L, based on an overnight fast. ??Children may be higher. Blood Venous Draw / Unknown 12/12/2021 7:20 AM EDT 12/12/2021 7:37 AM EDT Narrative Resulting Agency Comment Spec In Lab Sharifa Ruby MD CHEMISTRY ORDERABLES Performing Organization Address City/[facility]/ZIP Co de Phone Number [facility] [place] [address] * (ABNORMAL) Differential, Automated (12/12/2021 7:20 AM EDT) Neutrophils % 59.9 % [facility] Neutr Abs (ANC) 6.28(H) 1.70 - 6.10 x10(3)/mc L [facility] Lymphocytes % 30.1 % [facility] Lymphocytes Abs 3.2 0.9 - 3.2 x10(3)/mc L [facility] Monocytes % 7.5 % [facility] Monocyte Abs 0.8 0.3 - 0.9 x10(3)/mc L [facility] Eosinophils % 1.5 % [facility] Eosinophils Abs 0.2 0.0 - 0.4 x10(3)/mc L [facility] Basophils % 0.7 % [facility] Basophils Abs 0.1 0.0 - 0.1 x10(3)/mc L [facility] Immature Gran % 0.30 % [facility] Comment: Immature granulocytes(IG's)percentage and absolute count will include metamyelocytes, myelocytes, and promyelocytes. Blood smears from CBCs yielding IG's will be scanned manually for concordance. If this scan disagrees with the automated IG or if promyelocytes are noted, a manual differential will be performed. Nelida Gran Abs 0.03 0.00 - 0.04 x10(3)/mc L [facility] Blood 12/12/2021 7:20 AM EDT 12/12/2021 7:37 AM EDT Narrative Resulting Agency Comment Spec In Lab Ashlee Moon MD HEMATOLOGY ORDERABLE S [facility] [place] [address] * (ABNORMAL) Hemogram (12/12/2021 7:20 AM EDT) WBC 10.5(H) 4.0 - 9.5 x10(3)/[facility] RBC 5.11 4.00 - 5.21 x10(6)/[facility] Hemoglobin 15.6(H) 11.7 - 15.5 g/dL [facility] Hematocrit 46.8(H) 35.7 - 45.8 % [facility] MCV 91.6 82.6 - 94.[address] [facility] MCH 30.5 27.1 - 32.[address] [facility] MCHC 33.3 31.7 - 35.0 g/dL [facility] Platelets 283 145 - 357 x10(3)/[facility] RDWSD 47.6(H) 37.0 - 46.[address] [facility] RDWCV 14.0 11.5 - 14.1 % [facility] MPV 8.6 7.6 - 12.[address] [facility] nRBC % Auto 0.0 % [facility] nRBC Abs Auto 0.000 0.000 - 0.000 x10(3)/mcL [facility] Blood 12/12/2021 7:20 AM EDT 12/12/2021 7:37 AM EDT Narrative Resulting Agency Comment Spec In Lab Ashlee Moon MD HEMATOLOGY ORDERABLE S [facility] [place] [address] * Basic Metabolic Panel (non-fasting) (12/12/2021 7:20 AM EDT) Glucose Lvl 99 65 - 199 mg/dL [facility] Comment:Diabetes: >=200 mg/d L plus symptoms BUN 14 8 - 18 mg/dL [facility] Creatinine 0.90 0.70 - 1.20 mg/dL [facility] Sodium 137 135 - 145 mmol/L [facility] Potassium 4.9 3.5 - 5.0 mmol/L [facility] Comment: Please note: ??Patients with WBC >100,000 may have falsely elevated Potassium levels. ??For accurate Potassium quantification in these patients send serum separator tube (gold top) for subsequent determinations. ??Contact the Clinical Chemistry Laboratory if there are any questions. Chloride 101 98 - 107 mmol/L [facility] CO2 25 22 - 31 mmol/L [facility] Anion Gap 11 5 - 15 mmol/L [facility] Calcium 9.4 8.5 - 10.5 mg/dL [facility] Estimated GFR 70 >=60 mL/min/1. 73 m?? [facility] In Lab Ashlee Moon MD CHEMISTRY ORDERABLES Performing Organization Address [facility]/ZIP Co de Phone Number [facility] [place] [address] * POCT Glucose (12/12/2021 6:43 AM EDT) POC Glucose 115 65 - 199 mg/dL [facility] Comment: Supplemental ranges: <140 mg/dL before meals <180 mg/dL all other times of the day Blood 12/12/2021 6:43 AM EDT 12/12/2021 6:43 AM EDT Ashlee Moon MD POINT OF CARE TEST O RDERABLES Performing Organization Address [facility]/ZIP Co de Phone Number [facility] [place] [address] documented in this encounter Visit Diagnoses Diagnosis Cardiomyopathy, unspecified type HFrEF (heart failure with reduced ejection fraction) Coronary artery disease, unspecified vessel or lesion type, unspecified whether angina present, unspecified whether lytton or transplanted heart Cardiomyopathy, unspecified type HFrEF (heart failure with reduced ejection fraction) documented in this encounter Admitting Diagnoses Diagnosis Cardiomyopathy Other primary cardiomyopathies documented in this encounter Administered Medications Inactive Administered Medications - up to 3 most recent administrations Medication Order MAR Action Action Date Dose Rate Site acetaminophen (Tylenol) tablet 1,000 mg 1,000 mg, Oral, ONCE, 1 dose, On Sat12/12/21 at 0700, Administer with SIP of H2O only. Maximum dose of acetaminophen is 4,000 mg from all sources in 24 hours., Day of Surgery (Day of Procedure), Routine Given 12/12/2021 7:27 AM EDT 1,000 mg acetaminophen (Tylenol) tablet 650 mg 650 mg, Oral, EVERY 4 HOURS PRN, Starting on Sat12/12/21 at 1030, Until Sat12/13/21 at 1300, Pain, Fever, Mild-moderate pain (1-6), Maximum dose of acetaminophen is 4000 mg from all sources in 24 hours. When ordered for pain, acetaminophen should be given even when other ordered pain medications are indicated., Recovery (Recovery-Hospital Unit), Routine Given 12/12/2021 4:24 PM EDT 650 mg aspirin EC tablet 81 mg 81 mg, Oral, DAILY, First dose on Sat12/12/21 at 1715, Until Discontinued, Routine Given 12/12/2021 6:02 PM EDT 81 mg atorvastatin (Lipitor) tablet 80 mg 80 mg, Oral, EVERY EVENING, First dose on Sat12/12/21 at 1715, Until Discontinued, Routine Given 12/12/2021 6:01 PM EDT 80 mg dextrose 10% infusion 250 mL, at 1,000 mL/hr, Intravenous, EVERY 30 MIN PRN, Starting on Sat12/12/21 at 1950, Until Sat12/13/21 at 1300, For BG 50-70 mg/dL: Oral treatment preferred: If able to drink, give 120 mL Juice or Regular (not diet) soda OR If NPO, give 15 gram glucose 40% oral gel massaged into buccal mucosa OR if unconscious or uncooperative, give 25 gram (250 mL) Dextrose 10% IV over 15 minutes per protocol OR, if no IV access, 1 mg Glucagon IM. For BG less than 50 mg/dL: Oral treatment preferred: If able to drink, give 240 mL Juice or Regular (not diet) soda OR If NPO, give 30 gram glucose 40% oral gel massaged in buccal mucosa OR if unconscious or uncooperative, give 25 gram (250 mL) Dextrose 10% IV over 15 minutes per protocol OR, if no IV access, 1 mg Glucagon IM. Recheck BG in 30 minutes. May repeat juice/soda, gel, dextrose or glucagon once per episode. For persistent hypoglycemia, consider longer-acting treatment for the duration of the active insulin. empagliflozin (Jardiance) tablet 10 mg 10 mg, Oral, DAILY, First dose on Sat12/12/21 at 1715, Until Discontinued, This medication should not be given with reduced PO intake/fluid loss, severe illness, or in patients with ketonemia or ketouria. , Routine, This medication should be held for 3 days prior to surgery. Is there a planned procedure within 3 days? No, Indication for empagliflozin: heart failure (HFpEF or HFrEF), Is this a new initiation for patients with heart failure (HFpEF or HFrEF) with or without diabetes? No Given 12/13/2021 8:20 AM EDT 10 mg famotidine (Pepcid) tablet 20 mg 20 mg, Oral, 2 TIMES DAILY, First dose on Sat12/12/21 at 2100, Until Discontinued, Routine Given 12/13/2021 8:19 AM EDT 20 mg Given 12/12/2021 8:39 PM EDT 20 mg glucagon (Glucagen) (1 mg/mL) injection solution 1 mg 1 mg, Intramuscular, EVERY 30 MIN PRN, Starting on Sat12/12/21 at 1950, Until Sat12/13/21 at 1300, Low blood sugar, For BG 50-70 mg/dL: Oral treatment preferred: If able to drink, give 120 mL Juice or Regular (not diet) soda OR If NPO, give 15 gram glucose 40% oral gel massaged into buccal mucosa OR if unconscious or uncooperative, give 25 gram (250 mL) Dextrose 10% IV over 15 minutes per protocol OR, if no IV access, 1 mg Glucagon IM. For BG less than 50 mg/dL: Oral treatment preferred: If able to drink, give 240 mL Juice or Regular (not diet) soda OR If NPO, give 30 gram glucose 40% oral gel massaged in buccal mucosa OR if unconscious or uncooperative, give 25 gram (250 mL) Dextrose 10% IV over 15 minutes per protocol OR, if no IV access, 1 mg Glucagon IM. Recheck BG in 30 minutes. May repeat juice/soda, gel, dextrose or glucagon once per episode. For persistent hypoglycemia, consider longer-acting treatment for the duration of the active insulin., Routine glucose (Glutose) 40% oral geL 15-30 g of glucose, Buccal, EVERY 30 MIN PRN, Starting on Sat12/12/21 at 1950, Until Sat12/13/21 at 1300, Low blood sugar, For BG 50-70 mg/dL: Oral treatment preferred: If able to drink, give 120 mL Juice or Regular (not diet) soda OR If NPO, give 15 gram glucose 40% oral gel massaged into buccal mucosa OR if unconscious or uncooperative, give 25 gram (250 mL) Dextrose 10% IV over 15 minutes per protocol OR, if no IV access, 1 mg Glucagon IM. For BG less than 50 mg/dL: Oral treatment preferred: If able to drink, give 240 mL Juice or Regular (not diet) soda OR If NPO, give 30 gram glucose 40% oral gel massaged in buccal mucosa OR if unconscious or uncooperative, give 25 gram (250 mL) Dextrose 10% IV over 15 minutes per protocol OR, if no IV access, 1 mg Glucagon IM. Recheck BG in 30 minutes. May repeat juice/soda, gel, dextrose or glucagon once per episode. For persistent hypoglycemia, consider longer-acting treatment for the duration of the active insulin. 1 tube of Glutose-15 contains 15 grams of glucose (net weight of tube = 37.5 grams.), Routine levothyroxine (Synthroid) tablet 50 mcg 50 mcg, Oral, DAILY, First dose on Sat12/12/21 at 1715, Until Discontinued, Routine Given 12/13/2021 8:19 AM EDT 50 mcg magnesium oxide (Mag-Ox) tablet 400 mg 400 mg, Oral, 2 TIMES DAILY, First dose on Sat12/12/21 at 2100, Until Discontinued, Routine Given 12/13/2021 8:19 AM EDT 400 mg Given 12/12/2021 8:40 PM EDT 400 mg metFORMIN (Glucophage) tablet 1,000 mg 1,000 mg, Oral, 2 TIMES DAILY WITH MEALS, First dose on Sat12/12/21 at 1715, Until Discontinued, Routine Given 12/13/2021 8:18 AM EDT 1,000 mg metoprolol succinate XL (Toprol-XL) tablet 100 mg 100 mg, Oral, DAILY, First dose on Sat12/12/21 at 1715, Until Discontinued, DO NOT CRUSH OR OPEN, Routine Given 12/13/2021 8:41 AM EDT 100 mg multivitamin with minerals (Thera M) tablet 1 tablet 1 tablet, Oral, DAILY, First dose on Sat12/12/21 at 1845, Until Discontinued, Routine Given 12/13/2021 8:19 AM EDT 1 tablet Given 12/12/2021 7:00 PM EDT 1 tablet sacubitriL-valsartan (Entresto) 24-26 mg per tablet 1 tablet 1 tablet, Oral, 2 TIMES DAILY, First dose on Sat12/12/21 at 2100, Until Discontinued, Routine, Is this a continuation of home medication? Yes Given 12/13/2021 8:41 AM EDT 1 tablet Given 12/12/2021 8:40 PM EDT 1 tablet spironolactone (Aldactone) tablet 12.5 mg 12.5 mg, Oral, DAILY, First dose on Sat12/12/21 at 1715, Until Discontinued, DO NOT SPLIT, CRUSH OR OPEN, Routine Given 12/13/2021 8:41 AM EDT 12.5 mg documented in this encounter Active and Recently Administered Medications Times are shown in EDT. Scheduled Medication Order 12/11/2021 12/12/2021 12/13/2021 acetaminophen (Tylenol) tablet 1,000 mg (COMPLETED) 1,000 mg, Oral, ONCE, 1 dose, On Sat12/12/21 at 0700, Administer with SIP of H2O only. Maximum dose of acetaminophen is 4,000 mg from all sources in 24 hours., Day of Surgery (Day of Procedure), Routine 07 (Given - Provider: Gabriel Kennedy RN) aspirin EC tablet 81 mg 81 mg, Oral, DAILY, First dose on Sat12/12/21 at 1715, Until Discontinued, Routine 180 (Given - Provider: Nancy Cruz LPN) 0819 (Not Given - Provider: Rekha Drew RN - Reason: Patient/family refused - Comment: patient states takes at night, took 12/12 at 1800) atorvastatin (Lipitor) tablet 80 mg 80 mg, Oral, EVERY EVENING, First dose on Sat12/12/21 at 1715, Until Discontinued, Routine 180 (Given - Provider: Nancy Cruz LPN) ceFAZolin (Ancef) 2 g in dextrose 5% 100 mL infusion (COMPLETED) 2 g, Intravenous, ONCE, 1 dose, On Sat12/12/21 at 0730, Administer over 30 Minutes, For use in the electrophysiology lab (EP lab) only with direct provider supervision and verbal order., EP (Intra-Procedure), Indication for (Active or Suspected): Prophylaxis 0801 (Given - Provider: Duglas Ashford CRNA) empagliflozin (Jardiance) tablet 10 mg 10 mg, Oral, DAILY, First dose on Sat12/12/21 at 1715, Until Discontinued, This medication should not be given with reduced PO intake/fluid loss, severe illness, or in patients with ketonemia or ketouria. , Routine, This medication should be held for 3 days prior to surgery. Is there a planned procedure within 3 days? No, Indication for empagliflozin: heart failure (HFpEF or HFrEF), Is this a new initiation for patients with heart failure (HFpEF or HFrEF) with or without diabetes? No 1714 (Hold - Provider: Rekha Drew RN - Reason: See comment - Comment: per pharmacy) 0820 (Given - Provider: Rekha Drew RN) ergocalciferoL (vitamin D2) (vitamin D2) capsule 50,000 Units 50,000 Units, Oral, WEEKLY, First dose on Sat12/15/21 at 0900, Until Discontinued, Routine famotidine (Pepcid) tablet 20 mg 20 mg, Oral, 2 TIMES DAILY, First dose on Sat12/12/21 at 2100, Until Discontinued, Routine 2038 (Given - Provider: Nereyda Cash RN) 0819 (Given - Provider: Rekha Drew RN) levothyroxine (Synthroid) tablet 50 mcg 50 mcg, Oral, DAILY, First dose on Sat12/12/21 at 1715, Until Discontinued, Routine 1714 (Not Given - Provider: Rekha Drew RN - Reason: Patient/family refused - Comment: patient took at home) 0819 (Given - Provider: Rekha Drew RN) magnesium oxide (Mag-Ox) tablet 400 mg 400 mg, Oral, 2 TIMES DAILY, First dose on Sat12/12/21 at 2100, Until Discontinued, Routine 2039 (Given - Provider: Nereyda Cash RN) 0819 (Given - Provider: Rekha A Rajendra, RN) metFORMIN (Glucophage) tablet 1,000 mg 1,000 mg, Oral, 2 TIMES DAILY WITH MEALS, First dose on Sat12/12/21 at 1715, Until Discontinued, Routine 171 (Hold - Provider: Rekha Drew RN - Reason: See comment - Comment: per pharmacy) 0818 (Given - Provider: Rekha Drew, NIESHA) metoprolol succinate XL (Toprol-XL) tablet 100 mg 100 mg, Oral, DAILY, First dose on Sat12/12/21 at 1715, Until Discontinued, DO NOT CRUSH OR OPEN, Routine 171 (Not Given - Provider: Rekha Drew RN - Reason: See comment - Comment: patient took in am) 0841 (Given - Provider: Rekha Drew RN) multivitamin with minerals (Thera M) tablet 1 tablet 1 tablet, Oral, DAILY, First dose on Sat12/12/21 at 1845, Until Discontinued, Routine 1900 (Given - Provider: Rekha Drew RN) 0819 (Given - Provider: Rekha Drew, NIESHA) sacubitriL-valsartan (Entresto) 24-26 mg per tablet 1 tablet 1 tablet, Oral, 2 TIMES DAILY, First dose on Sat12/12/21 at 2100, Until Discontinued, Routine, Is this a continuation of home medication? Yes 2039 (Given - Provider: Nereyda Cash RN) 0841 (Given - Provider: Rekha Drew, NIESHA) spironolactone (Aldactone) tablet 12.5 mg 12.5 mg, Oral, DAILY, First dose on Sat12/12/21 at 1715, Until Discontinued, DO NOT SPLIT, CRUSH OR OPEN, Routine 1714 (Hold - Provider: Rekha Drew RN - Reason: See comment - Comment: per pharmacy, and hypotensive) 0841 (Given - Provider: Rekha Drew RN) Continuous Medication Order 12/11/2021 12/12/2021 12/13/2021 lactated ringers infusion (CANCELED) 1,000 mL, at 100 mL/hr, Intravenous, CONTINUOUS, Starting on Sat12/12/21 at 0700, Until Sat12/12/21 at 1633, Day of Surgery (Day of Procedure) 0744 (New Bag - Provider: Adin Ashford CRNA)0907 (Anesthesia Volume Adjustment - Provider: Duglas Ashford CRNA) PRN Medication Order 12/11/2021 12/12/2021 12/13/2021 acetaminophen (Tylenol) tablet 325 mg 325 mg, Oral, DAILY PRN, Starting on Sat12/12/21 at 1031, Until Sat12/13/21 at 1300, Pain, Maximum dose of acetaminophen is 4000 mg from all sources in 24 hours. When ordered for pain, acetaminophen should be given even when other ordered pain medications are indicated. , Routine acetaminophen (Tylenol) tablet 650 mg 650 mg, Oral, EVERY 4 HOURS PRN, Starting on Sat12/12/21 at 1030, Until Sat12/13/21 at 1300, Pain, Fever, Mild-moderate pain (1-6), Maximum dose of acetaminophen is 4000 mg from all sources in 24 hours. When ordered for pain, acetaminophen should be given even when other ordered pain medications are indicated., Recovery (Recovery-Hospital Unit), Routine 1624 (Given - Provider: Elida Baker RN) allopurinoL (Zyloprim) tablet 100 mg 100 mg, Oral, DAILY PRN, Starting on Sat12/12/21 at 1659, Until Sat12/13/21 at 1300, for Gout attacks, Routine colchicine (Colcrys) tablet 0.6 mg 0.6 mg, Oral, DAILY PRN, Starting on Sat12/12/21 at 1659, Until Sat12/13/21 at 1300, Pain, Maximum dose: 2.4 mg/ 24 hours. DO NOT SPLIT, CRUSH OR OPEN, Routine dextrose 10% infusion(Linked Group 1) 250 mL, at 1,000 mL/hr, Intravenous, EVERY 30 MIN PRN, Starting on Sat12/12/21 at 1950, Until Sat12/13/21 at 1300, For BG 50-70 mg/dL: Oral treatment preferred: If able to drink, give 120 mL Juice or Regular (not diet) soda OR If NPO, give 15 gram glucose 40% oral gel massaged into buccal mucosa OR if unconscious or uncooperative, give 25 gram (250 mL) Dextrose 10% IV over 15 minutes per protocol OR, if no IV access, 1 mg Glucagon IM. For BG less than 50 mg/dL: Oral treatment preferred: If able to drink, give 240 mL Juice or Regular (not diet) soda OR If NPO, give 30 gram glucose 40% oral gel massaged in buccal mucosa OR if unconscious or uncooperative, give 25 gram (250 mL) Dextrose 10% IV over 15 minutes per protocol OR, if no IV access, 1 mg Glucagon IM. Recheck BG in 30 minutes. May repeat juice/soda, gel, dextrose or glucagon once per episode. For persistent hypoglycemia, consider longer-acting treatment for the duration of the active insulin. glucagon (Glucagen) (1 mg/mL) injection solution 1 mg(Linked Group 1) 1 mg, Intramuscular, EVERY 30 MIN PRN, Starting on Sat12/12/21 at 1950, Until Sat12/13/21 at 1300, Low blood sugar, For BG 50-70 mg/dL: Oral treatment preferred: If able to drink, give 120 mL Juice or Regular (not diet) soda OR If NPO, give 15 gram glucose 40% oral gel massaged into buccal mucosa OR if unconscious or uncooperative, give 25 gram (250 mL) Dextrose 10% IV over 15 minutes per protocol OR, if no IV access, 1 mg Glucagon IM. For BG less than 50 mg/dL: Oral treatment preferred: If able to drink, give 240 mL Juice or Regular (not diet) soda OR If NPO, give 30 gram glucose 40% oral gel massaged in buccal mucosa OR if unconscious or uncooperative, give 25 gram (250 mL) Dextrose 10% IV over 15 minutes per protocol OR, if no IV access, 1 mg Glucagon IM. Recheck BG in 30 minutes. May repeat juice/soda, gel, dextrose or glucagon once per episode. For persistent hypoglycemia, consider longer-acting treatment for the duration of the active insulin., Routine glucose (Glutose) 40% oral geL(Linked Group 1) 15-30 g of glucose, Buccal, EVERY 30 MIN PRN, Starting on Sat12/12/21 at 1950, Until Sat12/13/21 at 1300, Low blood sugar, For BG 50-70 mg/dL: Oral treatment preferred: If able to drink, give 120 mL Juice or Regular (not diet) soda OR If NPO, give 15 gram glucose 40% oral gel massaged into buccal mucosa OR if unconscious or uncooperative, give 25 gram (250 mL) Dextrose 10% IV over 15 minutes per protocol OR, if no IV access, 1 mg Glucagon IM. For BG less than 50 mg/dL: Oral treatment preferred: If able to drink, give 240 mL Juice or Regular (not diet) soda OR If NPO, give 30 gram glucose 40% oral gel massaged in buccal mucosa OR if unconscious or uncooperative, give 25 gram (250 mL) Dextrose 10% IV over 15 minutes per protocol OR, if no IV access, 1 mg Glucagon IM. Recheck BG in 30 minutes. May repeat juice/soda, gel, dextrose or glucagon once per episode. For persistent hypoglycemia, consider longer-acting treatment for the duration of the active insulin. 1 tube of Glutose-15 contains 15 grams of glucose (net weight of tube = 37.5 grams.), Routine nitroGLYcerin (Nitrostat) disintegrating tablet 0.4 mg 0.4 mg, Sublingual, DAILY PRN, Starting on Sat12/12/21 at 1659, Until Sat12/13/21 at 1300, Chest pain, SL nitroglycerin may be repeated every 5 minutes as needed up to 3 doses, Routine Linked Groups Order Group 1: glucose (Glutose) 40% oral geLJump to med 15-30 g of glucose, Buccal, EVERY 30 MIN PRN, Starting on Sat12/12/21 at 1950, Until Sat12/13/21 at 1300, Low blood sugar, For BG 50-70 mg/dL: Oral treatment preferred: If able to drink, give 120 mL Juice or Regular (not diet) soda OR If NPO, give 15 gram glucose 40% oral gel massaged into buccal mucosa OR if unconscious or uncooperative, give 25 gram (250 mL) Dextrose 10% IV over 15 minutes per protocol OR, if no IV access, 1 mg Glucagon IM. For BG less than 50 mg/dL: Oral treatment preferred: If able to drink, give 240 mL Juice or Regular (not diet) soda OR If NPO, give 30 gram glucose 40% oral gel massaged in buccal mucosa OR if unconscious or uncooperative, give 25 gram (250 mL) Dextrose 10% IV over 15 minutes per protocol OR, if no IV access, 1 mg Glucagon IM. Recheck BG in 30 minutes. May repeat juice/soda, gel, dextrose or glucagon once per episode. For persistent hypoglycemia, consider longer-acting treatment for the duration of the active insulin. 1 tube of Glutose-15 contains 15 grams of glucose (net weight of tube = 37.5 grams.), Routine Or dextrose 10% infusionJump to med 250 mL, at 1,000 mL/hr, Intravenous, EVERY 30 MIN PRN, Starting on Sat12/12/21 at 1950, Until Sat12/13/21 at 1300, For BG 50-70 mg/dL: Oral treatment preferred: If able to drink, give 120 mL Juice or Regular (not diet) soda OR If NPO, give 15 gram glucose 40% oral gel massaged into buccal mucosa OR if unconscious or uncooperative, give 25 gram (250 mL) Dextrose 10% IV over 15 minutes per protocol OR, if no IV access, 1 mg Glucagon IM. For BG less than 50 mg/dL: Oral treatment preferred: If able to drink, give 240 mL Juice or Regular (not diet) soda OR If NPO, give 30 gram glucose 40% oral gel massaged in buccal mucosa OR if unconscious or uncooperative, give 25 gram (250 mL) Dextrose 10% IV over 15 minutes per protocol OR, if no IV access, 1 mg Glucagon IM. Recheck BG in 30 minutes. May repeat juice/soda, gel, dextrose or glucagon once per episode. For persistent hypoglycemia, consider longer-acting treatment for the duration of the active insulin. Or glucagon (Glucagen) (1 mg/mL) injection solution 1 mgJump to med 1 mg, Intramuscular, EVERY 30 MIN PRN, Starting on Sat12/12/21 at 1950, Until Sat12/13/21 at 1300, Low blood sugar, For BG 50-70 mg/dL: Oral treatment preferred: If able to drink, give 120 mL Juice or Regular (not diet) soda OR If NPO, give 15 gram glucose 40% oral gel massaged into buccal mucosa OR if unconscious or uncooperative, give 25 gram (250 mL) Dextrose 10% IV over 15 minutes per protocol OR, if no IV access, 1 mg Glucagon IM. For BG less than 50 mg/dL: Oral treatment preferred: If able to drink, give 240 mL Juice or Regular (not diet) soda OR If NPO, give 30 gram glucose 40% oral gel massaged in buccal mucosa OR if unconscious or uncooperative, give 25 gram (250 mL) Dextrose 10% IV over 15 minutes per protocol OR, if no IV access, 1 mg Glucagon IM. Recheck BG in 30 minutes. May repeat juice/soda, gel, dextrose or glucagon once per episode. 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
--- OUTSIDE RECORDS SUMMARY | 2023-10-16 01:24 | XMS_ITS | Encounter Summary ---
Author Organization [facility] [place] [address] Care Team Providers Care Precision Crop Manager Name Role Phone Oleg Trinidad MD Primary Care Provider [phone] Reason for Visit * Auth/Cert Specialty Diagnoses / Procedures Referred By Contac t Referred To Contact Diagnoses Cardiomyopathy Cardiomyopathy, unspecified type [I42.9] HFrEF (heart failure with reduced ejection fraction) [I50.20] Procedures PRO INSERT/REPOSTION ELECTRD LEADS ELECTROPHYSIOLOGY PROCEDURE INSERT\REPOSITION LEAD FOR SINGLE\DUAL PACER & INSERT GEN. (WRVU 15.17) Ashlee Moon MD [facility] [place] [address] [facility] Referral ID Status Reason Start Date Expiration Date Visits Re quested Visits Authorized [id number] 1 1 Encounter Details Date Type Department Care Team (Late st Contact Info) Description 12/12/2021 7:30 AM EDT - 12/12/2021 10:00 AM EDT Surgery [place] [address] Ashlee Moon MD [facility] [place] [address] ELECTROPHYSIOLOGY PROCEDURE Social History Tobacco Use Types Packs/Day Years [...] Sign Reading Time Taken Comments Blood Pressure 80/56 12/12/2021 10:00 AM EDT Pulse 57 12/12/2021 10:00 AM EDT Temperature 36.7 ??C (98.1 ??F) 12/12/2021 9:50 AM ED T Respiratory Rate 13 12/12/2021 10:00 AM EDT Oxygen Saturation 95% 12/12/2021 10:00 AM EDT Inhaled Oxygen Concentration - - Weight 67 kg (147 lb 11.2 oz) 12/12/2021 6:38 AM EDT Height 160 cm (5' 3) 12/12/2021 6:38 AM EDT Body Mass Index 26.16 12/12/2021 6:38 AM EDT documented in this encounter Discharge Summaries * Mike Jackson PA - 12/13/2021 8:00 AM EDT Cardiac Electrophysiology Discharge Summary Patient Name: Stacy Esparza Patient Age: 66 y.o. Language: Burmese Race: White Ethnicity: Not nor Admit date: [...] the incision. Make sure to use a wire weaver cloth (such as a towel) in between the [...] implant 12/12/2021: LEAD AND GENERATOR DATA: ?? Director Of Channel Marketing Model # Serial # Generator Medtronic [id number] Ventricular Lead Medtronic [id number] PACE/SENSE DATA: ?? Sensed wave (mV) Threshold [...] (Calculated): 26.16 Height: 160 cm (5' 3) (12/12/21637) Weight: 67 kg (147 lb 11.2 oz) (12/12/21637) Functional and Cognitive Status: Stable Admission Diagnoses: [...] the incision. Make sure to use a wire weaver cloth (such as a towel) in between the [...] F. The office scheduling phone number is [phone]. ARM MOVEMENT RESTRICTIONS POST-IMPLANT - Do not [...] please call the Cardiac ElectrophysiologyTriage Nurse at [phone], option #3. General Instructions None Future Appointments and Orders Future Appointments and Orders Future Appointments Provider Department Dept Phone 01/15/2022 8:00 AM LAB, THREE L Lab 3L [facility] Arrive at: Breeding Technician Area 3L [phone] 01/15/2022 9:00 AM Alisa De Leon MD Cardiology at [facility] Arrive at: Breeding Technician Area 4A [phone] Discharge References/Attachments ICD Shocks: General Info (Burmese) ICD: Implantable Cardioverter-Defibrillator: Post-op (Burmese) documented in this encounter Discharge Instructions * Patient Instructions* Mike Jackson PA - 12/12/2021 10:32 AM EDT FINAL ICD/PACEMAKER RECOMMENDATIONS: 1. Standard post implant discharge instructions (see below): 2. Medications as listed above. HOLD METFORMIN (GLUCOPHAGE) 48 HOURS. MAY RESUME ON Saturday IN AM You may use ice packs over the incision. Make sure to use a wire weaver cloth (such as a towel) in between the [...] F. The office scheduling phone number is [phone]. ARM MOVEMENT RESTRICTIONS POST-IMPLANT - Do not [...] please call the Cardiac ElectrophysiologyTriage Nurse at [phone], option #3. * Attachments The following attachments cannot be sent through Care Everywhere. * ICD Shocks: General Info (Burmese) * ICD: Implantable Cardioverter-Defibrillator: Post-op (Burmese) documented in this encounter Medications at Time [...] Device Programming/Day of Discharge Note Stacy Esparza [id number] 12/13/2021 History: Stacy Esparza is a 66 y.o. female with a history of mixed ischemic/non- ischemic cardiomyopathy, who is POD#1 of single-lead left-sided ICD implant for primary prevention. Physical Exam: Vitals: 12/13/21 0720 12/13/21 0900 12/13/21 0944 12/13/21 0947 BP: 123/58 BP Location (NBP): Left arm Patient Position: Lying Pulse: 72 62 77 68 Resp: 03 08 19 13 Temp: 37 ??C (98.6 ??F) TempSrc: Oral SpO2: 92% 95% 92% 96% Weight: Height: General- No acute distress, laying comfortably in bed. Skin- Pocket incision is CDI. Silver Mepilex dressing in place Cardiovascular- S1/S2 regular rate and rhythm. No murmur. Lungs- Clear to auscultation bilaterally Neuro- A&Ox3 Device Interrogation: LEAD AND GENERATOR DATA: ?? Director Of Channel Marketing Model # Serial # Generator Medtronic [id number] Ventricular Lead Medtronic [id number] Diagnostics Pacing Mode: VVI 40 Presenting EGMs: [...] on tele and RN assessed pt, asymptomatic. Graham PARKER,awaiting response. 2215: at bedside, ordering labs for [...] audible and individualized to patient. 1020 Ashlee Zeitler MD aware of hypotension. Patient tolerating po [...] lightheaded, weak or confused. Mare Blank MD PACU/physical therapy resident, p. [phone] documented in this encounter H&P Notes * [...] is less mitral regurgitation. (LVEF 24%) Primary Utility Supervisor Boat And Plant: Dr. Moon ROS: Denies recent fevers, chills. [...] signed. Trevon Calix MD Cardiac Electrophysiology Fellow [facility] Pager [phone] 12/12/2021 documented in this encounter Plan of Treatment Upcoming Encounters Date Type Department Care Team (Late st Contact Info) Description 10/17/2023 10:30 AM EDT Appointment Non-Invasive [place] [address] [place] [address] 10/17/2023 11:40 AM EDT Office Visit Cardiology at [address] [phone] [place] [address] 11/15/2023 10:00 AM EDT Hospital Encounter Non-Invasive [place] [address] Arrived 11/21/2023 1:40 PM EDT Office Visit Cardiology at [address] [phone] Lea Hodges MD [facility] [place] [address] Pending Results Name Type Priority Associated Diagnoses [...] Type Associated Problems Recent Progress Patient-Stated? Author [employer] Medication Compliance and Understanding Patient Facing Action Plan No Yahir Mcallister, [facility] Note: To live and see improvement in [...] 9:46 AM EDTThis note is in progress. [facility] ELECTROPHYSIOLOGY PROCEDURE NOTE PROCEDURE: Single chamber ICD, left sided PATIENT HISTORY: 66 year old with a history of mixed ischemic andnon-ischemic cardiomyopathy with EF 24% on guideline directed medicaltherapy presents for single chamber ICD placement for primaryprevention. MOWER SHARPENER: Ashlee Moon M.D., M.H.S. ASSISSTANT: Trevon Calix [...] to the skin. LEAD AND GENERATOR DATA: Director Of Channel Marketing Model # Serial # Generator Medtronic [id number] Ventricular Lead Medtronic [id number] PACE/SENSE DATA: Sensed wave (mV) Threshold (V) [...] type, unspecified whether angina present, unspecified whether [place] or transplanted heart DIFFERENTIAL, AUTOMATED Routine 12/12/2021 7:20 AM EDT Coronary artery disease, unspecified vessel or lesion type, unspecified whether angina present, unspecified whether [place] or transplanted heart BETA HYDROXYBUTYRATE Routine 12/12/2021 7:20 AM EDT HC CBC,PLT & AUTO DIFF Routine 12/12/2021 7:20 AM EDT Coronary artery disease, unspecified vessel or lesion type, unspecified whether angina present, unspecified whether [place] or transplanted heart BASIC METABOLIC PANEL (NON-FASTING) Routine 12/12/2021 7:20 AM EDT Coronary artery disease, unspecified vessel or lesion type, unspecified whether angina present, unspecified whether [place] or transplanted heart POCT GLUCOSE Routine 12/12/2021 6:43 AM EDT documented in this encounter Results * POCT Glucose (12/13/2021 7:25 AM EDT) POC Glucose 102 65 - 199 mg/dL [facility] Comment: Supplemental ranges: <140 mg/dL before meals <180 mg/dL all other times of the day Blood 12/13/2021 7:25 AM EDT 12/13/2021 7:25 AM EDT Ashlee Moon MD POINT OF CARE TEST O RDERABLES [facility] [place] [address] * EKG 12 Lead (12/13/2021 6:14 AM EDT) Ventricular rate 68 BPM MUSE SYSTEM Atrial Rate 68 BPM MUSE SYSTEM P-R Interval 154 ms MUSE SYSTEM QRS Duration 108 ms MUSE SYSTEM Q-T Interval 450 ms MUSE SYSTEM QTC Calculated (Bezet) 478 ms MUSE SYSTEM Calculated P [place] 71 degrees MUSE SYSTEM Calculated R [place] -67 degrees MUSE SYSTEM Calculated T [place] 130 degrees MUSE SYSTEM INTERPRETATION Normal sinus rhythm Left axis deviation Inferior infarct (cited on or before 13-DEC-2021) Anterolateral infarct (cited on or before 13-DEC-2021) Abnormal ECG When compared with ECG of 24-NOV-2021 15:50, QRS axis Shifted left I personally reviewed the tracing and edited the fellows interpretation Confirmed by fellow MD Siva, [place] ([id number]) on 12/13/2021 6:19:39 PM Confirmed by MD Heber, Brady Harrell ([id number]) on 12/14/2021 1:37:19 PM MUSE SYSTEM 12/13/2021 6:14 AM EDT 12/14/2021 1:37 PM EDT Ashlee Moon MD ECG ORDERABLES MUSE SYSTEM * XR Chest PA & [...] who have questions please contact the health long term care social worker that requested your imaging first. ? Narrative [...] patients who have questions please contactthe health long term care social worker that requested your imaging first. Ashlee Moon MD IMG DX ORDERABLES * POCT Glucose (12/12/2021 5:53 PM EDT) POC Glucose 106 65 - 199 mg/dL [facility] Comment: Supplemental ranges: <140 mg/dL before meals <180 mg/dL all other times of the day Blood 12/12/2021 5:53 PM EDT 12/12/2021 5:53 PM EDT Ashlee Moon MD POINT OF CARE TEST O RDERABLES Performing Organization Address City/[facility]/ZIP Co de Phone Number [facility] [place] [address] * Beta Hydroxybutyrate (12/12/2021 7:20 AM EDT) BOHB <0.10 0.00 - 0.30 mmol/L [facility] Comment: Reference range: ??0.00-0.30 mmol/L, based on an overnight fast. ??Children may be higher. Blood Venous Draw / Unknown 12/12/2021 7:20 AM EDT 12/12/2021 7:37 AM EDT Narrative Resulting Agency Comment Spec In Lab Sharifa Ruby MD CHEMISTRY ORDERABLES Performing Organization Address [facility]/ZIP Co de Phone Number [facility] [place] [address] * (ABNORMAL) Differential, Automated (12/12/2021 7:20 AM EDT) Neutrophils % 59.9 % [facility] Neutr Abs (ANC) 6.28(H) 1.70 - 6.10 x10(3)/mc L [facility] Lymphocytes % 30.1 % [facility] Lymphocytes Abs 3.2 0.9 - 3.2 x10(3)/mc L [facility] Monocytes % 7.5 % [facility] Monocyte Abs 0.8 0.3 - 0.9 x10(3)/mc L [facility] Eosinophils % 1.5 % [facility] Eosinophils Abs 0.2 0.0 - 0.4 x10(3)/mc L [facility] Basophils % 0.7 % [facility] Basophils Abs 0.1 0.0 - 0.1 x10(3)/mc L [facility] Immature Gran % 0.30 % [facility] Comment: Immature granulocytes(IG's)percentage and absolute count will include metamyelocytes, myelocytes, and promyelocytes. Blood smears from CBCs yielding IG's will be scanned manually for concordance. If this scan disagrees with the automated IG or if promyelocytes are noted, a manual differential will be performed. [place] Gran Abs 0.03 0.00 - 0.04 x10(3)/mc L [facility] Blood 12/12/2021 7:20 AM EDT 12/12/2021 7:37 AM EDT Narrative Resulting Agency Comment Spec In Lab Ashlee Moon MD HEMATOLOGY ORDERABLE S [facility] [place] [address] * (ABNORMAL) Hemogram (12/12/2021 7:20 AM EDT) WBC 10.5(H) 4.0 - 9.5 x10(3)/[facility] RBC 5.11 4.00 - 5.21 x10(6)/[facility] Hemoglobin 15.6(H) 11.7 - 15.5 g/dL [facility] Hematocrit 46.8(H) 35.7 - 45.8 % [facility] MCV 91.6 82.6 - 94.4 fL [facility] MCH 30.5 27.1 - 32.0 pg [facility] MCHC 33.3 31.7 - 35.0 g/dL [facility] Platelets 283 145 - 357 x10(3)/[facility] RDWSD 47.6(H) 37.0 - 46.0 fL [facility] RDWCV 14.0 11.5 - 14.1 % [facility] MPV 8.6 7.6 - 12.9 fL [facility] nRBC % Auto 0.0 % AB HIT [facility] nRBC Abs Auto 0.000 0.000 - 0.000 x10(3)/mcL [facility] Blood 12/12/2021 7:20 AM EDT 12/12/2021 7:37 AM EDT Narrative Resulting Agency Comment Spec In Lab Ashlee Moon MD HEMATOLOGY ORDERABLE S [facility] [place] [address] * Basic Metabolic Panel (non-fasting) (12/12/2021 7:20 AM EDT) Glucose Lvl 99 65 - 199 mg/dL [facility] Comment:Diabetes: >=200 mg/d L plus symptoms BUN 14 8 - 18 mg/dL [facility] Creatinine 0.90 0.70 - 1.20 mg/dL [facility] Sodium 137 135 - 145 mmol/L [facility] Potassium 4.9 3.5 - 5.0 mmol/L [facility] Comment: Please note: ??Patients with WBC >100,000 may have falsely elevated Potassium levels. ??For accurate Potassium quantification in these patients send serum separator tube (gold top) for subsequent determinations. ??Contact the Clinical Chemistry Laboratory if there are any questions. Chloride 101 98 - 107 mmol/L [facility] CO2 25 22 - 31 mmol/L [facility] Anion Gap 11 5 - 15 mmol/L [facility] Calcium 9.4 8.5 - 10.5 mg/dL [facility] Estimated GFR 70 >=60 mL/min/1. 73 m?? [facility] Comment: This patient's estimated GFR [...] Moon MD CHEMISTRY ORDERABLES Performing Organization Address [facility] Co de Phone Number [facility] [place] [address] * POCT Glucose (12/12/2021 6:43 AM EDT) POC Glucose 115 65 - 199 mg/dL [facility] Comment: Supplemental ranges: <140 mg/dL before meals <180 mg/dL all other times of the day Blood 12/12/2021 6:43 AM EDT 12/12/2021 6:43 AM EDT Ashlee Moon MD POINT OF CARE TEST O RDERABLES Performing Organization Address [facility] Co de Phone Number [facility] [place] [address] documented in this encounter Visit Diagnoses Diagnosis Cardiomyopathy, unspecified type HFrEF (heart failure with reduced ejection fraction) Coronary artery disease, unspecified vessel or lesion type, unspecified whether angina present, unspecified whether [place] or transplanted heart Cardiomyopathy, unspecified type HFrEF [...] Day of Surgery (Day of Procedure), Routine 0727 (Given - Provider: Gabriel Kennedy RN) aspirin [...] (Intra-Procedure), Indication for (Active or Suspected): Prophylaxis 08 (Given - Provider: Duglas Ashford CRNA) empagliflozin [...] or HFrEF) with or without diabetes? No 171 (Hold - Provider: Rekha Drew RN - Reason: See comment - Comment: per pharmacy) 08 (Given - Provider: Rekha Drew RN) ergocalciferoL (vitamin D2) (vitamin D2) capsule 50,000 Units 50,000 Units, Oral, WEEKLY, First dose on Sat12/15/21 at 0900, Until Discontinued, Routine famotidine (Pepcid) tablet 20 mg 20 mg, Oral, 2 TIMES DAILY, First dose on Sat12/12/21 at 2100, Until Discontinued, Routine 2038 (Given - Provider: Nereyda Cash RN) 08 (Given - Provider: Rekha Drew, NIESHA) levothyroxine (Synthroid) tablet 50 mcg 50 mcg, Oral, DAILY, First dose on Sat12/12/21 at 1715, Until Discontinued, Routine 1714 (Not Given - Provider: Rekha Drew RN - Reason: Patient/family refused - Comment: patient took at home) 08 (Given - Provider: Rekha Drew, NIESHA) magnesium oxide (Mag-Ox) tablet 400 mg 400 mg, Oral, 2 TIMES DAILY, First dose on Sat12/12/21 at 2100, Until Discontinued, Routine 2039 (Given - Provider: Nereyda Cash, NEISHA) 0819 (Given - Provider: Rekha Drew, NIESHA) metFORMIN (Glucophage) tablet 1,000 mg 1,000 mg, Oral, 2 TIMES DAILY WITH MEALS, First dose on Sat12/12/21 at 1715, Until Discontinued, Routine 1714 (Hold - Provider: Rekha Drew RN - Reason: See comment - Comment: per pharmacy) 0818 (Given - Provider: Rekha Drew, NIESHA) metoprolol succinate XL (Toprol-XL) tablet 100 mg 100 mg, Oral, DAILY, First dose on Sat12/12/21 at 1715, Until Discontinued, DO NOT CRUSH OR OPEN, Routine 1715 (Not Given - Provider: Rekha Drew RN - Reason: See comment - Comment: patient took in am) 0841 (Given - Provider: Rekha Drew, NIESHA) multivitamin with minerals (Thera M) tablet 1 [...] Cash RN) 0841 (Given - Provider: Rekha Drew RN) spironolactone (Aldactone) tablet 12.5 mg 12.5 mg, Oral, DAILY, First dose on Sat12/12/21 at 1715, Until Discontinued, DO NOT SPLIT, CRUSH OR OPEN, Routine 171 (Hold - Provider: Rekha Drew RN - Reason: See comment - Comment: per pharmacy, and hypotensive) 0841 (Given - Provider: Rekha Drew, NIESHA) Continuous Medication Order 12/11/2021 12/12/2021 12/13/2021 lactated [...] Routine documented in this encounter Care Teams Precision Crop Manager Relationship Specialty Start Date End Date Oleg Trinidad MD [address] [place] [address] PCP - General Family Medicine 07/31/21 documented as of this encounter
--- OUTSIDE RECORDS SUMMARY | 2023-10-16 01:24 | XMS_ITS | Encounter Summary ---
Author Organization [facility] [place] [address] Care Team Providers Care Processing Archivist Name Role Phone Angela Cotto MD Primary Care Provider [phone] Reason for Referral * Diagnostic Test (Routine) - Closed Specialty Diagnoses / Procedures Referred By Conthedy t Referred To Contact Cardiology Diagnoses Chronic systolic (congestive) heart failure Cardiomyopathy, unspecified type Procedures Echocardiogram Transthoracic Mylene Ch PA [facility] [place] [address] [facility] [place] [address] Referral ID Status Reason Start Date Expiration Date V isits Requested Visits Authorized [id number] Closed Specialty Service Requested 05/26/2021 05/26/2022 1 1 Encounter Details Date Type Department Care Team (Late st Contact Info) Description 05/26/2021 Orders Only Cardiology at [address] [phone] Mylene Ch PA [facility] [place] [address] Chronic systolic (congestive) heart failure; Cardiomyopathy, unspecified type Social History Tobacco Use Types Packs/Day Years [...] 10:30 AM EDT Appointment Non-Invasive [place] [phone] [place] [address] 10/17/2023 11:40 AM EDT Office Visit Cardiology at [address] [phone] [place] [address] 11/15/2023 10:00 AM EDT Hospital Encounter Non-Invasive [place] [address] Arrived 11/21/2023 1:40 PM EDT Office Visit Cardiology at [address] [phone] Lea Hodges MD [facility] [place] [address] documented as of this encounter Goals Goal Patient Goal Type Associated Problems Recent Progress Patient-Stated? Author [facility] Medication Compliance and Understanding Patient Facing Action Plan Yahir Ball, [facility] Note: To live and see improvement in her heart function and ability to have good quality of life documented as of this encounter Results * ECHO LMTD W/O CONTRAST W LMTD SPEC DOPP COLOR DOPP (07/31/2021 8:05 AM EDT) Anatomical Region Laterality Modality Other 07/31/2021 7:11 AM EDT Narrative 07/31/2021 8:36 AM EDT [facility] ?[address] ? [place] [address] ?Voice: ?Fax: ? Echocardiogram Report Name: TAMMY STOKES ?Study Date: 07/31/2021 07:11 AMBP: 120/69 mmHg ? Patient Location: 4A : 1955 ? Height: 64 in ? Account: [id number] Age: 65 yrs ? Weight: 148 lb Gender: Female ?BSA: 1.7 m2 Ordering Physician: GIANA WIGGINS Referring Physician: MYLENE CH Performed By: GITA Shankar Reason For Study: Chronic systolic heart failure, Cardiomyopathy Exam Location: [facility]. Interpretation Summary Compared to the prior study 02/22/21 the left ventricle remains severely diliated with severely reduced global function and elevated filling pressures. The right ventricle function has improved to low-normal. There is less mitral regurgitation. See report for detailed findings. Procedure Limited - 11584. Doppler - 53053. Color Doppler - 94396. 3D - 72307. Left ventricular strain - 0399T. Satisfactory quality. [...] Procedure Note Jevon Rossi MD - 07/31/2021 [place] [address] Voice: Fax: Echocardiogram Report Name: TAMMY STOKES Study Date: 207:11 AMBP: 120/69 mmHg Patient Location: : 1955 Height: 64 in Account: [id number] Age: 65 yrs Weight: 148 lb Gender: Female BSA: 1.7 m2 Ordering Physician: GIANA WIGGINS Referring Physician: MYLENE CH Performed By: GITA Shankar Reason For Study: Chronic systolic heart failure, Cardiomyopathy Exam Location: [facility]. Interpretation Summary Compared to the prior study 02/22/21 the left ventricle remains severelydiliated with severely reduced global function and elevated filling pressures. Theright ventricle function has improved to low-normal. There is less mitralregurgitation. See report for detailed findings. Procedure Limited - 22788. Doppler - 62861. Color Doppler - 39887. 3D - 45074.Left ventricular strain - 0399T. Satisfactory quality. There [...] systolic (congestive) heart failure Cardiomyopathy, unspecified type Chronic systolic (congestive) heart failure Cardiomyopathy, unspecified type documented in this encounter Care Teams Processing Archivist Relationship Specialty Start Date End Date Angela Cotto MD [address] [place] [address] PCP - General Family Medicine 02/20/21 07/30/21 documented as of this encounter
--- OUTSIDE RECORDS SUMMARY | 2023-10-16 01:24 | XMS_ITS | Encounter Summary ---
Author Organization [facility] Address [facility] [place] [address] Care Team Providers Care Scoop Operator Name Role Phone Oleg Trinidad MD Primary Care Provider [phone] Encounter Details Date Type Department Care Team (Late st Contact Info) Description 01/25/2022 Notes Only Care Management [facility] [place] [phone] Jeromy Ellsworth Social History Tobacco Use Types [...] encounter Progress Notes * Jeromy Ellsworth - 01/25/2022 9:01 AM EDT I sent the re-enrollment application for assistance with ENTRESTO to SHEREE ROSE for their signature and prescription. I will follow through with the remainder of the application once everything is returned to me. This is for the 2022 enrollment year. documented in this encounter Plan of Treatment Upcoming Encounters Date Type Department Care Team (Late st Contact Info) Description 10/17/2023 10:30 AM EDT Appointment Non-Invasive [place] [address] [place] [address] 10/17/2023 11:40 AM EDT Office Visit Cardiology at [address] [address] [place] [address] 11/15/2023 10:00 AM EDT Hospital Encounter Non-Invasive [place] [address] Arrived 11/21/2023 1:40 PM EDT Office Visit Cardiology at [address] [address] Lea Hodges MD [facility] [place] [address] documented as of this encounter Goals Goal Patient Goal Type Associated Problems Recent Progress Patient-Stated? Author DH Home Medication Compliance and Understanding Patient Facing Action Plan Yahir Ball, [facility] Note: To live and see improvement in her heart function and ability to have good quality of life documented as of this encounter Visit Diagnoses Not on filedocumented in this encounter Care Teams Scoop Operator Relationship Specialty Start Date End Date Oleg Trinidad MD [address] [place] [address] PCP - General Family Medicine 07/31/21 documented as of this encounter
--- OUTSIDE RECORDS SUMMARY | 2023-10-16 01:24 | XMS_ITS | Encounter Summary ---
Author Organization [facility] [place] [address] Care Team Providers Care Paver Operator Name Role Phone Angela Cotto MD Primary Care Provider [phone] Reason for Visit * Reason Onset Date Comments Other 05/31/2021 Pt. Called to as k about what to send in for income for application for MAP. Let Pt. Know what needed to be sent in. Encounter Details Date Type Department Care Team (Late st Contact Info) Description 05/31/2021 [place] [address] Isabel Santiago Other (Pt. Called to ask about what to send in for income for application for MAP. Let Pt. Know what needed to be sent in. ) Social History Tobacco Use Types Packs/Day Years [...] 10:30 AM EDT Appointment Non-[place] [address] [place] [address] 10/17/2023 11:40 AM EDT Office Visit Cardiology at [address] [phone] [place] [address] 11/15/2023 10:00 AM EDT Hospital Encounter Non-[place] [address] Arrived 11/21/2023 1:40 PM EDT Office Visit Cardiology at [address] [phone] Lea Hodges MD [facility] [place] [address] documented as of this encounter Goals Goal [...] on filedocumented in this encounter Care Teams Paver Operator Relationship Specialty Start Date End Date Angela Cotto MD [address] [place] [address] PCP - General Family Medicine 02/20/21 07/30/21 documented as of this encounter
--- OUTSIDE RECORDS SUMMARY | 2023-10-16 01:24 | XMS_ITS | Encounter Summary ---
Author Organization [facility] [place] [address] Care Team Providers Care Refrigerating Machine Operator Name Role Phone Oleg Trinidad MD Primary Care Provider [phone] Encounter Details Date Type Department Care Team (Latest Contact Info) Description 07/31/2021 8:00 AM EDT Laboratory Appointment Lab [address] [place] [phone] HFrEF (heart failure with reduced ejection fraction); [...] AM EDT Appointment Non-Invasive [place] [phone] Lea Jay MD [facility] [place] [address] 10/17/2023 11:40 AM EDT Office Visit Cardiology at [address] [phone] Lea Jay MD [facility] [address] 11/15/2023 10:00 AM EDT Hospital Encounter [facility]-Invasive [facility] Lab [facility] [place] [address] Arrived 11/21/2023 1:40 PM EDT Office Visit Cardiology at [address] [phone] Lea Hodges MD [facility] [place] [address] documented as of this encounter Goals Goal Patient Goal Type Associated Problems Recent Progress Patient-Stated? Author Home Medication Compliance and Understanding Patient Facing Action Plan Yahir Ball, [facility] Note: To live and see improvement in her heart function and ability to have good quality of life documented as of this encounter Procedures Procedure Name Priority Date/Time Associated Diagnosis Comments HC PROBNP STAT 07/31/2021 8:11 AM EDT HFrEF (heart failure with reduced ejection fraction) HC VENIPUNCTURE STAT 07/31/2021 8:11 AM EDT HFrEF (heart failure with reduced ejection fraction) Hyperglycemia LIPID PANEL (REFLEX DIRECT LDL) STAT 07/31/2021 8:11 AM EDT HFrEF (heart failure with reduced ejection fraction) BASIC METABOLIC PANEL (NON-FASTING) STAT 07/31/2021 8:11 AM EDT HFrEF (heart failure with reduced ejection fraction) documented in this encounter Results * (ABNORMAL) Basic Metabolic Panel (non-fasting) (07/31/2021 8:11 AM EDT) Glucose Lvl 100 65 - 199 mg/dL [facility] Comment:Diabetes: >=200 mg/d L plus symptoms BUN 16 8 - 18 mg/dL [facility] Creatinine 1.04 0.70 - 1.20 mg/dL [facility] Sodium 137 135 - 145 mmol/L [facility] Potassium 5.0 3.5 - 5.0 mmol/L [facility] Comment: Please note: ??Patients with WBC >100,000 may have falsely elevated Potassium levels. ??For accurate Potassium quantification in these patients send serum separator tube (gold top) for subsequent determinations. ??Contact the Clinical Chemistry Laboratory if there are any questions. Chloride 99 98 - 107 mmol/L [facility] CO2 26 22 - 31 mmol/L [facility] Anion Gap 12 5 - 15 mmol/L [facility] Calcium 9.5 8.5 - 10.5 mg/dL [facility] Estimated GFR 56(L) >=60 mL/min/1. 73 m?? [facility] Comment: This patient? s estimated glomerular [...] Lab Alisa Borrero MD CHEMISTRY OR DERABLES [facility] [place] [address] * (ABNORMAL) pro-Brain Natriuretic Peptide (07/31/2021 8:11 AM EDT) ProBNP 1,550(H) <=124 pg/mL [facility] Blood 07/31/2021 8:11 AM EDT 07/31/2021 8:40 AM EDT Narrative Resulting Agency Comment Spec In Lab Alisa Borrero MD CHEMISTRY OR DERABLES [facility] [place] [address] * Lipid Panel (Reflex Direct LDL) (07/31/2021 8:11 AM EDT) Chol, Total 88 mg/dL [facility] Comment: Lower Risk: <200 mg/dL Average Risk: 200-239 mg/dL Higher Risk: >wk=402 mg/dL Triglycerides 105 mg/dL [facility] Comment: Average Risk/Lower Risk: <150 mg/dL Borderline High Risk: 150-199 mg/dL High Risk: 200-499 mg/dL Very High Risk: >fz=196 mg/dL HDL 37 mg/dL [facility] Comment: Males: ?? Higher Risk: <40 mg/dL Females: ?? Higher Risk: <50 mg/dL LDL Cholesterol 30 mg/dL [facility] Comment: Lowest Risk: <100 mg/dL Lower Risk: 100-129 mg/dL Borderline High Risk: 130-159 mg/dL High Risk: 160-189 mg/dL Very High Risk: >qm=318 mg/dL Chol/HDL Ratio 2.4 ratio [facility] Lipid Interpretation See Note [facility] Comment: Lipid management should be guided by a patient? s ASCVD risk, goals and preferences. ACC/AHA Guidelines recommend high intensity statin if clinical ASCVD or LDL greater than or equal to 190 mg/dL. http://Frilpurl.com/KDN-FPX-Lhahurfxb Adults aged 40-75 with LDL 70-189 mg/dL should have their 10 year ASCVD risk estimated with the ACC/AHA ASCVD risk measurement supervisor http://tools.acc.org/EVBEB-Oscz-Spesqwggm/ Statin should be discussed if risk greater [...] Lab Alisa Borrero MD CHEMISTRY OR DERABLES [facility] [place] [address] * Hemoglobin A1c (07/31/2021 8:11 AM EDT) Hemoglobin A1C 5.6 4.3 - 5.6 % [facility] Comment: Reference Range: 4.3 - [...] Mellitus, Diabetes Care 2013; 36: Suppl. 1, S67-48 Est Avg Gluc 113 mg/dL [facility] Comment: eAG equivalents for HbA1c [...] into estimated average glucose values. ??Diabetes Care 2008:31(8):1658-8317. Blood 07/31/2021 8:11 AM EDT 07/31/2021 8:40 AM EDT Narrative Resulting Agency Comment Spec In Lab Alisa Borrero MD CHEMISTRY OR DERABLES Performing Organization Address City/State/RUST Co de Phone Number [facility] [place] [address] documented in this encounter Visit Diagnoses Diagnosis HFrEF (heart failure with reduced ejection fraction) Hyperglycemia Other abnormal glucose documented in this encounter Care Teams Refrigerating Machine Operator Relationship Specialty Start Date End Date Oleg Trinidad MD [address] [place] [address] PCP - General Family Medicine 07/31/21 documented as of this encounter
--- OUTSIDE RECORDS SUMMARY | 2023-10-16 01:24 | XMS_ITS | Encounter Summary ---
Author Organization [facility] [place] [address] Care Team Providers Care Wine Bottle Inspector Name Role Phone Angela Cotto MD Primary Care Provider [phone] Encounter Details Date Type Department Care Team (Late st Contact Info) Description 07/27/2021 Notes [place] [address] Kimberly Bernard Social History Tobacco Use Types Packs/Day Years [...] as of this encounter Progress Notes * Kimberly Bernard - 07/27/2021 11:51 AM EDT I sent the application for assistance with Jardiance to for their signature and prescription. I will follow through with the remainder of the application once everything is returned to me. documented in this encounter Plan of Treatment Upcoming Encounters Date Type Department Care Team (Late st Contact Info) Description 10/17/2023 10:30 AM EDT Appointment Non-Invasive Cardiology [place] [address] [place] [address] 10/17/2023 11:40 AM EDT Office Visit Cardiology at [address] [phone] [place] [address] 11/15/2023 10:00 AM EDT Hospital Encounter Non-Invasive [place] [phone] Arrived 11/21/2023 1:40 PM EDT Office Visit Cardiology at [address] [phone] Lea Hodges MD [facility] [place] [address] documented as of this encounter Goals Goal Patient Goal Type Associated Problems Recent Progress Patient-Stated? Author DH Home Medication Compliance and Understanding Patient Facing Action Plan Yahir Ball, [facility] Note: To live and see improvement in her heart function and ability to have good quality of life documented as of this encounter Visit Diagnoses Not on filedocumented in this encounter Care Teams Wine Bottle Inspector Relationship Specialty Start Date End Date Angela Cotto MD [address] [place] [address] PCP - General Family Medicine 02/20/21 07/30/21 documented as of this encounter
--- OUTSIDE RECORDS SUMMARY | 2023-10-16 01:24 | XMS_ITS | Encounter Summary ---
[place] [address] Care Team Providers Care Maintenance Chief Name Role Phone Oleg Trinidad MD Primary Care Provider [phone] Encounter Details Date Type Department Care Team (Late st Contact Info) Description 12/13/2021 Notes Only [place] [address] Isabel Santiago Social History Tobacco Use Types [...] encounter Progress Notes * Isabel Santiago - 12/13/2021 8:25 AM EDT A letter was mailed to the patient to remind them that annual renewal time if approaching and MAP will send them the appropriate renewal application in the coming weeks. documented in this encounter Plan of Treatment Upcoming Encounters Date Type Department Care Team (Late st Contact Info) Description 10/17/2023 10:30 AM EDT Appointment Non-[place] [address] [place] [address] 10/17/2023 11:40 AM EDT Office Visit Cardiology at [address] [phone] [place] [address] 11/15/2023 10:00 AM EDT Hospital Encounter Non-[place]vasive [place] [phone] Arrived 11/21/2023 1:40 PM EDT Office Visit Cardiology at [address] [address] Lea Hodges MD [facility] [place] [address] documented as of this encounter Goals Goal Patient Goal Type Associated Problems Recent Progress Patient-Stated? Author DH Home Medication Compliance and Understanding Patient Facing Action Plan Yahir Ball, [facility] Note: To live and see improvement in her heart function and ability to have good quality of life documented as of this encounter Visit Diagnoses Not on filedocumented in this encounter Care Teams Maintenance Chief Relationship Specialty Start Date End Date Oleg Trinidad MD [address] [place] [address] PCP - General Family Medicine 07/31/21 documented as of this encounter
--- OUTSIDE RECORDS SUMMARY | 2023-10-16 01:24 | XMS_ITS | Encounter Summary ---
[place] [address] Care Team Providers Care Coordinator Skill Training Program Name Role Phone Angela Cotto MD Primary Care Provider [phone] Reason for Visit * Reason Onset Date Comments Follow-up 05/31/2021 Low BP Encounter Details Date Type Department Care Team (Late st Contact Info) Description 05/31/2021 Telephone Cardiology at [address] [phone] Chela Berry, RN Follow-up (Low BP) Social History Tobacco Use Types Packs/Day Years [...] Telephone Encounter - Chela Berry, RN - 05/31/2021 7:33 PM EST Call received from pt stating that her PCP wanted us to know that her pulse is so faint that they adifficult time getting her BP and when they did it was l ow: 94/60, 84/60 and when she stood up it was in the 70's systolic. She had been feeling well but does say that she was having difficulty getting her monitor to picking machine operator her BP readings, Above message reviewed with ACCOUNTANT MANAGER Alok who wants the pt to go back to taking the Entresto 24-26 mg 1/2 tab bid. Pt notified. Will continue to monitor her BP/HR over the next 2 weeks, send the readings via her myD-H and call the chief underwriter to review how she is doing, hoping to be able to go back to the whole tabletbid, at that time. She is to call sooner with any questions/concerns. Pt verbalized good understanding of the current POC. * Telephone Encounter - Chela Berry RN - 05/31/2021 7:33 PM EST ----- Message from SHEREE Arthur sent at 05/17/2021 8:59 AM EST ----- Jose York - I increased Entresto to a full tablet bid (24-26 mg dosing). I also switched from torsemide to furosemide 2/2 ongoing issues with gout. Can you check in on her in ~2 weeks? Thanks! documented in this encounter Plan of Treatment Upcoming Encounters Date Type Department Care Team (Late st Contact Info) Description 10/17/2023 10:30 AM EDT Appointment Non-[place]vasive [place] [address] [place] [address] 10/17/2023 11:40 AM EDT Office Visit Cardiology at [address] [phone] [place] [address] 11/15/2023 10:00 AM EDT Hospital Encounter Non-Invasive [place] [address] Arrived 11/21/2023 1:40 PM EDT Office Visit Cardiology at [address] [address] Lea Hodges MD [facility] [place] [address] documented as of this encounter Goals Goal Patient Goal Type Associated Problems Recent Progress Patient-Stated? Author [facility] Medication Compliance and Understanding Patient Facing Action Plan No Yahir Mcallister, [facility] Note: To live and see improvement in her heart function and ability to have good quality of life documented as of this encounter Visit Diagnoses Not on filedocumented in this encounter Care Teams Coordinator Skill Training Program Relationship Specialty Start Date End Date Angela Cotto MD [address] [place] [address] PCP - General Family Medicine 02/20/21 07/30/21 documented as of this encounter
--- OUTSIDE RECORDS SUMMARY | 2023-10-16 01:25 | XMS_ITS | Encounter Summary ---
Author Organization [facility] [place] [address] Care Team Providers Care Senior Medical Transcriptionist Name Role Phone Angela Cotto MD Primary Care Provider [phone] Reason for Visit * Reason Comments Prior Authorization Entresto 24-26mg tab lets Encounter Details Date Type Department Care Team (Late st Contact Info) Description 03/27/2021 Specialty [place] [address] Ifrah Flowers CPHT Social History Tobacco Use Types Packs/Day Years Used Date Smoking Tobacco: Former Cigarettes 0.3 50 1 04/23/1970 - 02/21/2021 Smokeless Tobacco: Never Alcohol Use Standard Drinks/Week Comments No 0 (1 standard drink = 0.6 oz pur e alcohol) none in last 3 months Sex and Gender Information Value Date Recorded Sex Assigned at Not on file Gender Identity Not on file Sexual Orientation Not on file documented as of this encounter Progress Notes * Ifrah Flowers - 03/27/2021 12:41 PM EST [facility] Assistance Referral [facility] has looked into assistance for the following patient, but we have not been able to find any copay cards or foundations with available funding for them. A referral has been sent to the [facility] MAP team. The patient is aware that the [facility] team will be reaching out, and we have provided the number to reach [facility] in case they have any further questions. Patient: Stacy Esparza : 1955 Medication: ENTRESTO 24 MG-26 MG TABLET Dosing: Entresto 24-26mg tablets: Take one-half tablet by mouth twice a day Insurance: [employer] ([employer]) Medicare Part D?: Yes PA has been approved, current copay is: $318.23 Ifrah Flowers 03/27/21 12:47 PM [facility], No Prior Authorization Required Patient: Stacy Esparza Patient : 1955 Patient Address: [address] [place] [address] (home) Medication Name: ENTRESTO 24 MG-26 MG TABLET Medication ID: [id number] Patient Location: [facility] 4A Patient Location Comment: Medication Strength Frequency Requested: Entresto 24-26mg tablets: Take one-half tablet by mouth twice a day Qty/Day Supply: New Start: New to Therapy Diagnosis & ICD-10 Code: Chronic systolic heart failure, I50.22 Subscriber Insurance: [employer] ([employer]) Subscriber Insurance Comment: Fax: Physician: DHEERAJ [facility] Physician Comment : PA Status: NO PA REQUIRED Insurance mandated Pharmacy: [facility] Fillable at [facility]: Yes Insurance requirements/notes: None Copay: $318.23 Copay assistance: Other (Enter Comment) Copay assistance comment: Patient wants to pay co-pay at this time to immediately get started on this medication. Patient would like to have paperwork mailed to her as well so she can apply for the Entresto free drug program, which if eligible, would reduce the cost to $0. Pharmacy staff will be reaching out to the patient to inform them of [facility]. If applicable, a pharmacist will speak with the patient to offer our specialty pharmacy services and to arrange delivery of their medication. Ifrah Flowers 03/27/21 12:47 PM * Marcelino Erwin - 03/27/2021 12:41 PM EST [facility] Assistance Update The [facility] has attempted to reach back out to Stacy Isaias to see if they need anyfurther guidance with acquiring histology specialist assistance for their specialty medication, ENTRESTO 24MG-26 MG TABLET. We spoke to patient. Stacy states she hasn't receive the [employer] Patient [employer] paperwork as of yet, so I reached out to the [facility] MAP team to ensure this was mailed. Will follow-up with patient again on this in 7 days. Additional Notes: Yes Marcelino Erwin 04/03/21 10:45 AM * Marcelino Erwin - 03/27/2021 12:41 PM EST [facility] Assistance Update [facility] has attempted to reach back out to Stacy Esparza to see if they need anyfurther guidance with acquiring histology specialist assistance for their specialty medication, ENTRESTO 24MG-26 MG TABLET. We spoke to patient. Additional Notes: Yes I called and spoke with the patient today, who states she has received the [employer] paperwork on her end and once completed she will send it back to [facility] using the returnenvelope provided. We have kept the patient enrolled in our specialty pharmacy services for now andwill touch base with her when the refill is due. Marcelino Erwin 04/10/21 12:47 PM documented in this encounter Plan of Treatment Upcoming Encounters Date Type Department Care Team (Late st Contact Info) Description 10/17/2023 10:30 AM EDT Appointment Non-[place] [phone] [place] [address] 10/17/2023 11:40 AM EDT Office Visit Cardiology at [address] [phone] [place] [address] 11/15/2023 10:00 AM EDT Hospital Encounter Non-Invasive [place] [phone] Arrived 11/21/2023 1:40 PM EDT Office Visit Cardiology at [address] [phone] Lea Hodges MD [facility] [place] [address] documented as of this encounter Goals Goal Patient Goal Type Associated Problems Recent Progress Patient-Stated? Author DH Home Medication Compliance and Understanding Patient Facing Action Plan No Yahir Mcallister, [facility] Note: To live and see improvement in her heart function and ability to have good quality of life documented as of this encounter Visit Diagnoses Not on filedocumented in this encounter Care Teams Senior Medical Transcriptionist Relationship Specialty Start Date End Date Angela Cotto MD [address] [place] [address] PCP - General Family Medicine 02/20/21 07/30/21 documented as of this encounter
--- OUTSIDE RECORDS SUMMARY | 2023-10-16 01:25 | XMS_ITS | Encounter Summary ---
Author Organization [facility] [place] [address] Care Team Providers Care Graphic Design Assistant Name Role Phone Angela Cotto MD Primary Care Provider [phone] Encounter Details Date Type Department Care Team (Latest Contact Info) Description 05/16/2021 10:00 AM EST Laboratory Appointment Lab [address] [place] [phone] Chronic systolic (congestive) heart failure Social History [...] 10:30 AM EDT Appointment Non-[place] [phone] Lea Jay MD [facility] [place] [address] 10/17/2023 11:40 AM EDT Office Visit Cardiology at [address] [phone] Lea Jay MD [facility] [place] [address] 11/15/2023 10:00 AM EDT Hospital Encounter Non-[place]vasive [place] [address] Arrived 11/21/2023 1:40 PM EDT Office Visit Cardiology at [address] [phone] Lea Hodges MD [facility] [place] [address] documented as of this encounter Goals Goal Patient Goal Type Associated Problems Recent Progress Patient-Stated? Author [facility] Medication Compliance and Understanding Patient Facing Action Plan Yahir Ball, [facility] Note: To live and see improvement in her heart function and ability to have good quality of life documented as of this encounter Procedures Procedure Name Priority Date/Time Associated Diagnosis Comments HC PROBNP Routine 05/16/2021 10:16 AM EST Chronic systolic (congestive) heart failure BASIC METABOLIC PANEL (NON-FASTING) Routine 05/16/2021 10:16 AM EST Chronic systolic (congestive) heart failure documented in this encounter Results * (ABNORMAL) Basic Metabolic Panel (non-fasting) (05/16/2021 10:16 AM EST) Glucose Lvl Not Perf 65 - 199 [facility] Comment: Sample improperly processed prior to receipt. Diabetes: >=200 mg/dL plus symptoms BUN 20(H) 8 - 18 mg/dL [facility] Creatinine 1.15 0.70 - 1.20 mg/dL [facility] Sodium 139 135 - 145 mmol/L [facility] Potassium 4.5 3.5 - 5.0 mmol/L [facility] Comment: Please note: ??Patients with WBC >100,000 may have falsely elevated Potassium levels. ??For accurate Potassium quantification in these patients send serum separator tube (gold top) for subsequent determinations. ??Contact the Clinical Chemistry Laboratory if there are any questions. Chloride 99 98 - 107 mmol/L [facility] CO2 28 22 - 31 mmol/L [facility] Anion Gap 12 5 - 15 mmol/L [facility] Calcium 9.9 8.5 - 10.5 mg/dL [facility] Estimated GFR 50(L) >=60 mL/min/1. 73 m?? [facility] Comment: This patient? s estimated glomerular filtration rate (eGFR) is between 50 mL/min/1.73 m2 (patients with less muscle mass) and 57 mL/min/1.73 m2 (patients with more muscle mass) [...] and symptoms in addition to eGFR. Blood 05/16/2021 10:1 6 AM EST 05/16/2021 11:31 AM EST Narrative Resulting Agency Comment Spec In Lab Alisa Borrero MD CHEMISTRY OR DERABLES Performing Organization Address City/[facility] Co de Phone Number [facility] [place] [place] [address] * (ABNORMAL) pro-Brain Natriuretic Peptide (05/16/2021 10:16 AM EST) ProBNP 1,762(H) <=124 pg/mL [facility] Blood 05/16/2021 10:1 6 AM EST 05/16/2021 11:31 AM EST Narrative Resulting Agency Comment Spec In Lab Alisa Borrero MD [place] [address] documented in this encounter Visit Diagnoses Diagnosis Chronic systolic (congestive) heart failure documented in this encounter Care Teams Graphic Design Assistant Relationship Specialty Start Date End Date Angela Cotto MD [address] [place] [address] PCP - General Family Medicine 02/20/21 07/30/21 documented as of this encounter
--- OUTSIDE RECORDS SUMMARY | 2023-10-16 01:25 | XMS_ITS | Encounter Summary ---
Author Organization [facility] [place] [address] Care Team Providers Care Real Estate Agent/Broker Name Role Phone Angela Cotto MD Primary Care Provider Encounter Details Date Type Department Care Team (Late st Contact Info) Description 03/10/2021 Orders [place] [phone] Rhonda Polo MD [facility] [place] [address] Chronic obstructive pulmonary disease, unspecified COPD type (Primary Dx) Social History Tobacco Use Types Packs/Day Years [...] 10:30 AM EDT Appointment Non-Invasive [place] [phone] Lea Jay MD [facility] [place] [address] 10/17/2023 11:40 AM EDT Office Visit Cardiology at [address] [phone] [place] [address] 11/15/2023 10:00 AM EDT Hospital Encounter Non-Invasive [place] [address] Arrived 11/21/2023 1:40 PM EDT Office Visit Cardiology at [address] [phone] Lea Hodges MD [facility] [place] [address] documented as of this encounter Visit Diagnoses Diagnosis Chronic obstructive pulmonary disease, unspecified COPD type- Primary documented in this encounter Care Teams Real Estate Agent/Broker Relationship Specialty Start Date End Date Angela Cotto MD [address] [address] PCP - General Family Medicine 02/20/21 07/30/21 documented as of this encounter
--- OUTSIDE RECORDS SUMMARY | 2023-10-16 01:25 | XMS_ITS | Encounter Summary ---
Author Organization [facility] [place] [address] Care Team Providers Care All Source Analyst Name Role Phone Angela Cotto MD Primary Care Provider [phone] Reason for Visit * Reason Comments Medication Management Patient Education Encounter Details Date Type Department Care Team (Late st Contact Info) Description 03/27/2021 Specialty [place] [address] Yahir Mcallister, [facility] Social History Tobacco Use Types Packs/Day Years [...] as of this encounter Progress Notes * Yahir Mcallister RPH - 03/27/2021 12:53 PM EST Specialty Pharmacy Consultation; Yahir Mcallister RPH Comprehensive Medication Management (CMM) Stacy Esparza Diagnosis: cardiomyopathy / HFrEF Therapy Start Date: ~ 03/30/2021 Contact in person or via telephone: telephone Ms. Stacy Esparza is a 65 y.o. (1955) female who was contacted in regard to specialty medication. Spoke with patient regarding ENTRESTO . A review of the medication therapy was performed. The medication was filled as scheduled, and all medication related questions and concerns were addressed. The specialty pharmacy staff will follow up with the patient 5-7 days prior to next refill. Is the patient willing to proceed with the Clinical Assessment? Yes Summary and Recommendations: Provided initial consultation and assessment with Stacy regarding her new Entresto order. The copayis high but she has decided to pay for her first fill so that she can start right away, and the pharmacy will refer her to the Medication Assistance Program in the meantime. We reviewed that she willbe breaking the tablets in half so that she will take one-half of one 24-26mg tablet twice a day. Pharmacy recommends that she take the dose approximately every 12 hours. We cross referenced the warnings and precautions with her past and present medical history. There are warnings for angioedema and Stacy knows what that looks like, even though it very rarely occurs. She has not had anything likethat from use of a medication (including past use of lisinopril). There are warnings for hyperkalemia and reduced renal function. Stacy's potassium level is within the normal range and she will have it checked again in the near future after starting the Entresto. Her GFR is ~ 50ml/min so we discussed how her provider will also be keeping an eye on that, and the importance of follow-up labs in general. Stacy is not having any dizziness at this time, and her BP has been better since her medications were adjusted, but she will report any symptoms of hypotension. Her low starting dose will help to prevent a quick drop in BP. Stacy's goal is to live and be able to do the things she enjoys. She was taken by surprise with how quickly she decompensated recently, leading to severe SOB and hospitalization. We reviewed her allergy list and reconciled her medication list. While there are interactions between many of her medications, this is expected because so many duplicate hypotensive or renal / potassium effects. That said, we did discuss the specific duplicate losartan therapy and she will discuss this with her provider right away. She also mentioned that she occasionally takes naproxen for lower back pain. I pointed out the NSAIDs are generally not cardiac-friendly and could further red uce her kidney function and affect her BP. She will discuss this with her provider too. Some alternatives we talked about included lidocaine patches or simple acetaminophen. Stacy rates her quality of life at 9.5 out of 10 (excellent) and denies pain other than the occasional lower back pain. During our review of her medications I asked about Jardiance and she didn't seem to know about it. As it turns out, this is newly prescribed but the benefits investigation has not been completed. I have reached out to the main pharmacy and asked them to work on that and contact Stacy once they know if itis covered. Clinic follow-up needed: yes - Stacy will have labs done approximately 04/05/2021. Allergies and Drug intolerance: Allergies Allergen Reactions ??? Lisinopril Other (See Comments) cough Problem List: Patient Active Problem List Diagnosis Code ??? 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 Alcohol abuse, unspecified F10.10 ??? Hyperpotassemia E87.5 ??? Cardiogenic shock R57.0 ??? Unspecified hypothyroidism E03.9 ??? CAD (coronary artery disease) I25.10 Special Dietary or Hydration Requirements: heart healthy diet, low salt, low fat Medication Reconciliation Discrepancies (compared to [facility] med list) - added prsudha Velez, noted that Jardiance and NTG are not being used at present. Medication List: Current Outpatient Medications Medication Sig Note Dispense Refill ??? sacubitriL-valsartan (Entresto) 24-26 mg Tablet tablet Take 0.5 tablets by mouth 2 times daily.30 tablet 11 ??? naproxen sodium (ALEVE) 220 mg Capsule Take by mouth. 03/27/2021: As needed. ??? colchicine (Colcrys) 0.6 mg Tablet Take [...] by mouth daily. 90 tablet 3 ??? losartan (Cozaar) 25 mg Tablet Take 1 tablet by mouth [...] by mouth daily. 90 tablet 3 ??? torsemide (Demadex) 20 mg Tablet Take 2 tablets by mouth every morning. 90 tablet 3 ??? nicotine polacrilex (Nicorette) 2 mg Gum Take 1 each by mouth every 2 hours as needed for Smoking cessation. 50 each 3 ??? allopurinoL (Zyloprim) 100 mg Tablet Take 100 mg by mouth as needed (for Gout attacks). ??? ergocalciferoL, vitamin D2, (vitamin D2) 50,000 unit Capsule Take 50,000 Units by mouth once a week. 02/21/2021: Takes every saturday ??? metFORMIN (GLUCOPHAGE) 1,000 mg Tablet Take 1,000 mg by mouth 2 times daily (with meals). ??? aspirin 81 mg EC tablet Take 81 mg by mouth daily. ??? multivitamin (THERAGRAN) tablet Take 1 tablet by mouth daily. ??? empagliflozin (Jardiance) 10 mg Tablet Take 1 tablet by mouth daily. (Patient not taking: Reported on 03/27/2021) 30 tablet 11 ??? nitroGLYcerin (NITROSTAT) 0.[address] 1 tablet under the tongue daily as needed for Chest pain. (Patient not taking: Reported on 03/27/2021) 90 tablet 3 No current facility-administered medications for this visit. Most Recent Vitals: Ht Readings from Last 1 Encounters: 03/09/21 162.6 cm (5' 4) Wt Readings from Last 3 Encounters: 03/09/21 69.7 kg (153 lb 9.6 oz) 02/26/21 68.3 kg (150 lb 9.2 oz) 06/19/12 67.1 kg (148 lb) Temp Readings from Last 3 Encounters: 02/26/21 36.5 ??C (97.7 ??F) (Oral) BP Readings from Last 3 Encounters: 03/09/21 94/67 02/26/21 108/62 06/19/12 118/58 Pulse Readings from Last 3 Encounters: 03/09/21 76 02/26/21 87 06/19/12 84 There is no height or weight on file to calculate BMI. Pertinent Lab values: Lab Results Component Value Date NA 141 03/09/2021 K 4.8 03/09/2021 CL 100 03/09/2021 CO2 30 03/09/2021 BUN 25 (H) 03/09/2021 CREATININE 1.14 03/09/2021 GLUCOSE 125 03/09/2021 GLUCFASTING 103 (H) 02/25/2021 CALCIUM 9.4 03/09/2021 Lab Results Component Value Date ALT 13 03/09/2021 AST 13 03/09/2021 ALKPHOS 65 03/09/2021 BILITOT 0.3 03/09/2021 BILIDIR 0.2 02/22/2021 ALBUMIN 4.6 03/09/2021 PROT 7.0 03/09/2021 Lab Results Component Value Date WBC 8.9 03/09/2021 HGB 14.1 03/09/2021 HCT 42.4 03/09/2021 MCV 91.4 03/09/2021 PLATELET 304 03/09/2021 No results found for: HA1C There is no immunization history on file for this patient. Assessment and Recommendations: Patient Counseling Patient accepted offer to group therapy counselor: select all, adherence/missed doses, cost of medications/cost implications, doses and administration, possible drug/OTC drug and food interactions, possible adverse side effects and management, pharmacy contact information, lab monitoring/follow up, possible drug/Rx drug interactions, safe handling, storage, and disposal, therapeutic rationale Other Topic: continued use of Losartan vs d/c, and use of naproxen Medication Management Summary Topics discussed: reviewed medication changes since last visit, medication safety precautions education provided, drug interaction education provided to patient, safe handling, storage, and disposal discussed, possible adverse effects and management discussed, lab monitoring and follow-up discussed, cost of medications and cost implications discussed, adherence and missed doses discussed, health goals discussed, monitoring medication discussed, over the counter products discussed, recommendations to doctor discussed, start medication discussed, timing of medications discussed, referral needs discussed Number of adverse drug events identified: 0 Time spent: 16-30 min Treatment Outcomes 03/27/2021 1428 Disease progression: Stable Patient Overall Status: Stable Reviewed in detail with patient: Dose appropriateness based on recommended standard dosing Current medication list including OTC medications Medication and disease problems Allergies Comorbid conditions/ Problem List Past adverse events if any Special needs of the patient including physical and cognitive limitations Goals of therapy and management strategies Warnings, precautions, and contraindications Side effects Drug-drug and drug-food interactions Administration instructions including dose, frequency and method Handling, storage, and disposal Verifying expiration dates on products before use Rotating medication inventory to use oldest product first Relevant lab data Treatments impact on disease Dose appropriateness based on recommended standard dosing schedule, including any variations from FDA approved dosing Patient verbalizes understanding and is able to read-back instructions on self-administration/injection, proper storage, drug stability, importance of adherence and management strategies, side effect avoidance and mitigation strategies, and interruptions in therapy: Yes Patient is aware a licensed pharmacist is available 24 hours a day, 7 days a week to discuss medication-related questions or concerns: Yes Patient verbalizes understanding of the common side effect profile of their medication. The patient is able to call 911 or seek urgent care if signs/symptoms of allergy or harmful adverse reactions occur: Yes Additional care/services needed: No Additional equipment/supplies required: No Patient satisfied with care/services provided: Yes Specialty Assessment: Physical and Cognitive Assessment: Functional limitations identified: Yes If yes, explain: recent HF decompensation with extreme SOB Cognitive limitations identified: No Concern regarding orientation/memory: No Concern with reasoning/judgement: No Is patient a fall risk: No Social Assessment: Does patient have a primary nurse healthcare manager: No Does patient have an emergency contact on file: Yes Does patient need referral to social worker health services: No Does patient need referral to advocacy group: No Home Health Assessment: Is the patient in a safe home environment?: Yes Is the patient able to store their medication as directed?: Yes Does the patient have a support network at home?: Yes Reviewed potential home safety hazards with patient: Yes Economic Assessment: Patient is agreeable to medication copay: Yes Actual Copay: $: 318.23 Days Supply: 30 Welcome Packet and Rights and Responsibilities: Patient provided welcome packet/rights and responsibilities: Yes Specialty Med Adherence Adherence Tools Used: directed education Therapy Assessment: Current Medication Dosing/Route/Frequency: ENTRESTO 24-26mg: Take one-half tablet by mouth twice a day Appropriate Therapy: Yes Patient's Problems/Needs: recent decompensated cardiomyopathy with reduced EF (15-20%) and serious SOB Expected Outcome: improved breathing and exercise tolerance Patient's goals: Patient's specific desired goal: To live and see improvement in her heart function and ability to have a good quality of life Measured by: improvement in breathing and exercise, EF, labs Time-frame to meet goal: assessed every 1 to 3 months as indicated To live and see improvement in her heart function and ability to have good quality of life Patient Status and Counseling: Current Activity Level: modest Recent Swelling in Extremities: no Weight Changes: no Actively Monitoring Blood Pressure at Home: No Recent BP/HR Measurements: post-hospitalization variable 105/66 to 129/82 Recent Symptoms of Hypotension: no Recent Respiratory Symptoms (SOB, Wheezing, Cough): yes - serious SOB prior to hospitalization Monitoring requirements for prescribed medication: exercise tolerance, SOB, renal function / labs, BP, monitor for hypotension Care Plan Reviewed and Approved by both Pharmacist and Patient: Yes Interventions (if applicable): Yes - discussed whether Losartan should be continued (pt will conferwith provider) Pharmacist follow-up needed: Yes Patient understands no changes to current drug regimen were made at the appointment and that [facility] isproviding recommendations (summary located at top of note) for provider review and follow up. Yahir Mcallister RPH 03/27/21 2:29 PM documented in this encounter Plan of Treatment Upcoming Encounters Date Type Department Care Team (Late st Contact Info) Description 10/17/2023 10:30 AM EDT Appointment Non-[place] [address] Lea Jay MD [facility] [place] [address] 10/17/2023 11:40 AM EDT Office Visit Cardiology at [address] [address] Lea Jay MD [facility] [place] [address] 11/15/2023 10:00 AM EDT Hospital Encounter Non-[place] [phone] Arrived 11/21/2023 1:40 PM EDT Office Visit Cardiology at [address] [address] Lea Hodges MD [facility] [address] documented as of this encounter Goals Goal Patient Goal Type Associated Problems Recent Progress Patient-Stated? Author [facility] Home Medication Compliance and Understanding Patient Facing Action Plan Yahir Ball, [facility] Note: To live and see improvement in her heart function and ability to have good quality of life documented as of this encounter Visit Diagnoses Not on filedocumented in this encounter Care Teams All Source Analyst Relationship Specialty Start Date End Date Angela Cotto MD [address] [place] [id number] PCP - General Family Medicine 02/20/21 07/30/21 documented as of this encounter
--- OUTSIDE RECORDS SUMMARY | 2023-10-16 01:25 | XMS_ITS | Encounter Summary ---
Author Organization [facility] [place] [address] Care Team Providers Care Residence Director Name Role Phone Angela Cotto MD Primary Care Provider [phone] Reason for Visit * Reason Onset Date Comments Follow-up 05/18/2021 [facility] Entresto [facility] J ardiance Encounter Details Date Type Department Care Team (Late st Contact Info) Description 05/18/2021 Telephone Cardiology at [address] [phone] Chela Berry, RN Follow-up ([facility] Entresto [facility] Jardiance) Social History Tobacco Use Types Packs/Day Years [...] Telephone Encounter - Chela Berry RN - 05/18/2021 1:43 PM EST Call placed to Pharmacist Sukhdeep Jasso at [facility] to confirm that the current dose of Entresto is 24-26 mg 1 tab po bid. This is an increase from the 1/2 tab bid. Pt contacted to let her know that the prescriptions has been clarified. She should be getting the medication in the mail in the next couple days. [facility] staff will f/u on this. Pt thankful for the assistance. documented in this encounter Plan of Treatment Upcoming Encounters Date Type Department Care Team (Late st Contact Info) Description 10/17/2023 10:30 AM EDT Appointment Non-Invasive [place] [phone] [place] [address] 10/17/2023 11:40 AM EDT Office Visit Cardiology at [address] [phone] [place] [address] 11/15/2023 10:00 AM EDT Hospital Encounter Non-Invasive [place] [phone] Arrived 11/21/2023 1:40 PM EDT Office Visit Cardiology at [address] [phone] Lea Hodges MD [facility] [place] [address] documented as of this encounter Goals Goal Patient Goal Type Associated Problems Recent Progress Patient-Stated? Author DH Home Medication Compliance and Understanding Patient Facing Action Plan Yahir Ball, [facility] Note: To live and see improvement in her heart function and ability to have good quality of life documented as of this encounter Visit Diagnoses Not on filedocumented in this encounter Care Teams Residence Director Relationship Specialty Start Date End Date Angela Cotto MD [address] [place] [id number] PCP - General Family Medicine 02/20/21 07/30/21 documented as of this encounter
--- OUTSIDE RECORDS SUMMARY | 2023-10-16 01:25 | XMS_ITS | Encounter Summary ---
Author Organization [facility] [place] [address] Care Team Providers Care Scrap Stripper Hand Name Role Phone Angela Cotto MD Primary Care Provider [phone] Reason for Visit * Reason Onset Date Comments Follow-up 04/25/2021 Entresto start Encounter Details Date Type Department Care Team (Late st Contact Info) Description 04/25/2021 Telephone Cardiology at [address] [phone] Chela Berry, RN Follow-up (Entresto start) Social History Tobacco Use Types Packs/Day Years [...] Telephone Encounter - Chela Berry, RN - 04/27/2021 2:50 PM EST Pt contacted with the following response from SHEREE Carrero: Very reasonable recommendation. ??It looks like her current torsemide dose is 40 mg daily. ??We could reduce to 20 mg daily and follow up in a few weeks to see how she is doing on reduced dosing. ??I suspect we will be seeing new blood work on her and can discuss adjusting the Entresto. ??She may not need diuretics in the future. Pt will decrease the Torsemide to 20 mg daily. Updated prescription pended to SHEREE Carrero. Pt due for F/U with SHEREE Carrero mid April, call forwarded to Quynh to schedule f/u. Pt is aware that she will need to get labs that day 1 hour before her appt. * Telephone Encounter - Chela Berry RN - 04/25/2021 7:27 PM EST Pt contacted, in response to her myD-H message and to see how she is doing on the Entresto 24-26 mg1/2 tab BID. New Entresto Start Entresto 24-26 mg 1/2 tab po bid. Starting dose on 03/30/21. Teaching done on 03/29/21 Pt to monitor weights, BP/HR daily. Call clinic with c/o light headedness, dizziness, low BP, chest discomf and/or with any questions/concerns. Signs of angioedema: Lip/Eye/Face swelling. Signs of high Potassium: persistent abnormal heartbeat, confusion, SOB, dizziness, weakness. Call if his/her weight goes up 2 lbs in a day, 5 lbs in a week or if he/she notices any swelling inhis/her lower extremities and/or abdomen. Stop Arb (name & dose) Losartan 25 mg qd the day before starting Entresto (03/29/21) BMP done 1-2 weeks after start on 04/05/21 Getting labs done at : [facility] Pt contacted to see how she is doing on the Entresto. States feels good. Denies any dizziness/LH orother signs of low BP. She is working on getting a BP monitor, having purchased 2 digital monitors and 1 manual monitor, still having difficulty with getting a home BP. Her BP at a recent PCP visit was 110/60. Denies any swelling. Weight is down 10 lbs in the past month, due to diet changes to 145 lbs. She is currently taking shai 12.5 mg qd and Torsemide 40 mg daily. She is experiencing increased episodes of Gout flairs. BMP done on 1/12/22 BUN, Creat, K+ & NA WNL . * Telephone Encounter - Chela Berry RN - 04/25/2021 7:27 PM EST ----- Message from Chela Berry RN sent at 04/03/2021 11:28 AM EST ----- Regarding: FW: Entresto ----- Message ----- From: Stacy Esparza Sent: 04/02/2021 7:11 AM EST To: [facility] Subject: Lula York, Had my last dose of losartan on Mar.29, and started Entresto Mar.30- Also, Jardiance. No side effects to report! Have a BP cuff ordered and it is due to arrive Wed. the 12. Also, am doses aretaken 8am and pm doses at 8 pm. Stacy Weber documented in this encounter Plan of Treatment Upcoming Encounters Date Type Department Care Team (Late st Contact Info) Description 10/17/2023 10:30 AM EDT Appointment Non-[place]vasive [place] [address] [place] [address] 10/17/2023 11:40 AM EDT Office Visit Cardiology at [address] [phone] [place] [address] 11/15/2023 10:00 AM EDT Hospital Encounter Non-Invasive [place] [address] Arrived 11/21/2023 1:40 PM EDT Office Visit Cardiology at [address] [address] Lea Hodges MD [facility] [place] [address] documented as of this encounter Goals Goal Patient Goal Type Associated Problems Recent Progress Patient-Stated? Author [facility] Medication Compliance and Understanding Patient Facing Action Plan No Yahir Mcallister, [facility] Note: To live and see improvement in her heart function and ability to have good quality of life documented as of this encounter Procedures Procedure Name Priority Date/Time Associated Diagnosis Comments BASIC METABOLIC PANEL (NON-FASTING) Routine 04/05/2021 9:50 AM EST documented in this encounter Results * (ABNORMAL) Basic Metabolic Panel (non-fasting) (04/05/2021 9:50 AM EST) Glucose Lvl 113 EXTERNAL LAB BUN 20 EXTERNAL LAB Creatinine 1.10 EXTERNAL LAB Estimated GFR 49.7 EXTERNAL LAB Sodium 138 EXTERNAL LAB Potassium 4.7 EXTERNAL LAB Chloride 102 EXTERNAL LAB CO2 30 EXTERNAL LAB Calcium 9.9 EXTERNAL LAB Anion Gap 7 EXTERNAL LAB Blood 04/05/2021 9:50 AM EST Historical Provider CHEMISTRY ORDERAB LES EXTERNAL LAB documented in this encounter Visit Diagnoses Not on filedocumented in this encounter Care Teams Scrap Stripper Hand Relationship Specialty Start Date End Date Angela Cotto MD [address] [place] [address] PCP - General Family Medicine 02/20/21 07/30/21 documented as of this encounter
--- OUTSIDE RECORDS SUMMARY | 2023-10-16 01:25 | XMS_ITS | Encounter Summary ---
Author Organization [facility] [place] [address] Care Team Providers Care Quebracho Tanner Name Role Phone Angela Cotto MD Primary Care Provider [phone] Encounter Details Date Type Department Care Team (Late st Contact Info) Description 05/12/2021 Specialty [place] [address] Carol Kennedy, [facility] Social History Tobacco Use Types Packs/Day Years [...] as of this encounter Progress Notes * Carol Kennedy - 05/12/2021 4:08 PM EST [facility], Copay Assistance Medication Name: Entresto 24-26mg Medication ID: Copay Assistance/Copay Card: Name of Assistance Program: [employer] MAP Program Amount Provided by Program: $0.00 New Copayment: $47.00 Additional Information regarding this Assistance: [id number] In a follow-up call to CharuAmbrose Esparza, she informed me that she was NOT approved for [employer] MAP program for Entresto due to the application lacking her phone number. The [employer] rep said that Ms. Esparza would have to submit an entire new application, which will have to be completed by the Provider's office again and faxed to [employer]. [facility] has been notified of this new setback. Carol Kennedy 05/12/21 4:17 PM documented in this encounter Plan of Treatment Upcoming Encounters Date Type Department Care Team (Late st Contact Info) Description 10/17/2023 10:30 AM EDT Appointment Non-[place] [address] [place] [address] 10/17/2023 11:40 AM EDT Office Visit Cardiology at [address] [phone] [place] [address] 11/15/2023 10:00 AM EDT Hospital Encounter Non-[place]vasive [place] [phone] Arrived 11/21/2023 1:40 PM EDT Office Visit Cardiology at [address] [phone] Lea Hodges MD [facility] [place] [address] documented as of this encounter Goals Goal Patient Goal Type Associated Problems Recent Progress Patient-Stated? Author DH Herrin Medication Compliance and Understanding Patient Facing Action Plan Yahir Ball, [facility] Note: To live and see improvement in her heart function and ability to have good quality of life documented as of this encounter Visit Diagnoses Not on filedocumented in this encounter Care Teams Quebracho Tanner Relationship Specialty Start Date End Date Angela Cotto MD [address] [place] [address] PCP - General Family Medicine 02/20/21 07/30/21 documented as of this encounter
--- OUTSIDE RECORDS SUMMARY | 2023-10-16 01:25 | XMS_ITS | Encounter Summary ---
Author Organization [facility] [place] [address] Care Team Providers Care Cigar Packer And Picker Name Role Phone Angela Cotto MD Primary Care Provider [phone] Encounter Details Date Type Department Care Team (Late st Contact Info) Description 04/20/2021 Notes [place] [phone] Jeromy Ellsworth Social History Tobacco Use Types [...] encounter Progress Notes * Jeromy Ellsworth - 04/20/2021 11:18 AM EST I faxed the application for assistance with Entresto to [employer] I will follow through once the instrument and control technician program makes a decision. documented in this encounter Plan of Treatment Upcoming Encounters Date Type Department Care Team (Late st Contact Info) Description 10/17/2023 10:30 AM EDT Appointment [place] [phone] [place] [address] 10/17/2023 11:40 AM EDT Office Visit Cardiology at [address] [phone] [place] [address] 11/15/2023 10:00 AM EDT Hospital Encounter [place] [phone] Arrived 11/21/2023 1:40 PM EDT Office Visit Cardiology at [address] [phone] Lea Hodges MD [facility] [place] [address] documented as of this encounter Goals Goal [...] on filedocumented in this encounter Care Teams Cigar Packer And Picker Relationship Specialty Start Date End Date Angela Cotto MD [address] [place] [address] PCP - General Family Medicine 02/20/21 07/30/21 documented as of this encounter
--- OUTSIDE RECORDS SUMMARY | 2023-10-16 01:25 | XMS_ITS | Encounter Summary ---
Author Organization [facility] [place] [address] Care Team Providers Care Sales Development Manager Name Role Phone Angela Cotto MD Primary Care Provider Encounter Details Date Type Department Care Team (Late st Contact Info) Description 03/10/2021 Telephone [place] [phone] Belkis Curiel Social History Tobacco Use Types Packs/Day Years [...] encounter Miscellaneous Notes * Telephone Encounter - Belkis Curiel - 03/10/2021 10:12 AM EST Scheduled pft and installation and service technician appt from referral. Pt aware of date, time, and location documented in this encounter Plan of Treatment Upcoming Encounters Date Type Department Care Team (Late st Contact Info) Description 10/17/2023 10:30 AM EDT Appointment Non[place] [address] Lea Jay MD [facility] [place] [address] 10/17/2023 11:40 AM EDT Office Visit Cardiology at [address] [phone] [place] [address] 11/15/2023 10:00 AM EDT Hospital Encounter Non-[place]vasive [place] [phone] Arrived 11/21/2023 1:40 PM EDT Office Visit Cardiology at [address] [phone] Lea Hodges MD [facility] [place] [address] documented as of this encounter Visit Diagnoses Not on filedocumented in this encounter Care Teams Sales Development Manager Relationship Specialty Start Date End Date Angela Cotto MD [address] [place] [address] PCP - General Family Medicine 02/20/21 07/30/21 documented as of this encounter
--- OUTSIDE RECORDS SUMMARY | 2023-10-16 01:25 | XMS_ITS | Encounter Summary ---
Author Organization [facility] [place] [address] Care Team Providers Care Professor Of Exercise Science Name Role Phone Angela Cotto MD Primary Care Provider [phone] Reason for Visit * Reason Comments Medication Management Encounter Details Date Type Department Care Team (Late st Contact Info) Description 05/17/2021 Specialty Pharmacy Pharmacy at [facility] [place] [address] Deepti Guzman RPH Social History Tobacco Use Types Packs/Day Years [...] as of this encounter Progress Notes * Deepti Guzman RPH - 05/17/2021 11:55 AM EST Clinical Management Plan: Transfer of Care/Discharge Specialty Services Specialty Pharmacy Consultation; Deepti Guzman RPH Comprehensive Medication Management (CMM) Stacy Isaias [address] [facility] [address] Telephone Information: Work Phone Not on file. Is the patient transferring services to a different Specialty Pharmacy or discontinuing the medication? Transferring Services Medication: Entresto Reason for discontinuation or transfer: receiving through head knitting machine fixer's assistance program Approximate date of discontinuation or transfer: 05/17/21 Patient's response to therapy: positive Summary of services provided by D- Specialty: benefits investigation, prior authorization processing, copay assistance, new start consult and first fill Summary of on-going needs: HFrEF management Referral for additional services (if applicable): no Is patient aware of referral? no Instructions provided to patient about discharge/transfer: no Provider aware of discontinuation or transfer: yes Patient understands no changes to current drug regimen were made at the appointment and that [facility] is[facility] recommendations (summary located at top of note) for provider review and follow up. Deepti Guzman RPH 05/17/21 11:56 AM documented in this encounter Plan of Treatment Upcoming Encounters Date Type Department Care Team (Late st Contact Info) Description 10/17/2023 10:30 AM EDT Appointment Non-Invasive [place] [phone] [place] [address] 10/17/2023 11:40 AM EDT Office Visit Cardiology at [address] [phone] [place] [address] 11/15/2023 10:00 AM EDT Hospital Encounter Non-Invasive [place] [phone] Arrived 11/21/2023 1:40 PM EDT Office Visit Cardiology at [address] [phone] Lea Hodges MD [facility] [place] [address] documented as of this encounter Goals Goal Patient Goal Type Associated Problems Recent Progress Patient-Stated? Author DH Home Medication Compliance and Understanding Patient Facing Action Plan No Yahir Mcallister, [facility] Note: To live and see improvement in her heart function and ability to have good quality of life documented as of this encounter Visit Diagnoses Not on filedocumented in this encounter Care Teams Professor Of Exercise Science Relationship Specialty Start Date End Date Angela Cotto MD [address] [place] [address] PCP - General Family Medicine 02/20/21 07/30/21 documented as of this encounter
--- OUTSIDE RECORDS SUMMARY | 2023-10-16 01:25 | XMS_ITS | Encounter Summary ---
Author Organization [facility] [place] [address] Care Team Providers Care Net Architect Name Role Phone Angela Cotto MD Primary Care Provider [phone] Encounter Details Date Type Department Care Team (Late st Contact Info) Description 03/28/2021 Orders Only Cardiology at [address] [phone] Mylene Carrero PA [facility] [place] [address] Chronic systolic (congestive) heart failure Social History [...] AM EDT Appointment Non-[place] [phone] Lea Jay MD [facility] [place] [address] 10/17/2023 11:40 AM EDT Office Visit Cardiology at [address] [phone] [place] [address] 11/15/2023 10:00 AM EDT Hospital Encounter Non-[place] [phone] Arrived 11/21/2023 1:40 PM EDT Office Visit Cardiology at [address] [phone] Lea Hodges MD [facility] [place] [address] documented as of this encounter Goals Goal [...] failure documented in this encounter Care Teams Net Architect Relationship Specialty Start Date End Date Angela Cotto MD [address] [address] PCP - General Family Medicine 02/20/21 07/30/21 documented as of this encounter
--- OUTSIDE RECORDS SUMMARY | 2023-10-16 01:25 | XMS_ITS | Encounter Summary ---
Author Organization [facility] Address [facility] [place] [address] Care Team Providers Care Client Service And Consulting Manager Name Role Phone Angela Cotto MD Primary Care Provider [phone] Encounter Details Date Type Department Care Team (Late st Contact Info) Description 05/17/2021 Notes Only Care Management [facility] [place] [address] Jeromy Ellsworth Social History Tobacco Use Types [...] encounter Progress Notes * Jeromy Ellsworth - 05/17/2021 8:49 AM EST Application Final Determination Patient Name: STACY STOKES : 1955 Insurance: MEDICARE AB Medicare Part D: Y Application Sent to Program: 04/20/2021 Program Name: [facility] Medication: ENTRESTO Program Phone #: Program Fax #: Pharmacy Phone #: Pharmacy Fax#: Enrollment End Date: 03/24/2022 Quantity Shipped: 90 Shipping Timeframe: Ships To: PATIENT Shipping Instructions: Comments/Other: IF DOSAGE CHANGE NEEDED, PLEASE FAX UPDATED RX TO [facility] documented in this encounter Plan of Treatment Upcoming Encounters Date Type Department Care Team (Late st Contact Info) Description 10/17/2023 10:30 AM EDT Appointment Non-[place] [phone] [place] [address] 10/17/2023 11:40 AM EDT Office Visit Cardiology at [address] [phone] [place] [address] 11/15/2023 10:00 AM EDT Hospital Encounter Non-[place] [phone] Arrived 11/21/2023 1:40 PM EDT Office Visit Cardiology at [address] [phone] Lea Hodges MD [facility] [place] [address] documented as of this encounter Goals Goal Patient Goal Type Associated Problems Recent Progress Patient-Stated? Author DH Home Medication Compliance and Understanding Patient Facing Action Plan No Yahir Mcallister, [facility] Note: To live and see improvement in her heart function and ability to have good quality of life documented as of this encounter Visit Diagnoses Not on filedocumented in this encounter Care Teams Client Service And Consulting Manager Relationship Specialty Start Date End Date Angela Cotto MD [address] [place] [address] PCP - General Family Medicine 02/20/21 07/30/21 documented as of this encounter
--- OUTSIDE RECORDS SUMMARY | 2023-10-16 01:25 | XMS_ITS | Encounter Summary ---
Author Organization [facility] [place] [address] Care Team Providers Care Equity Trader Name Role Phone Angela Cotto MD Primary Care Provider [phone] Reason for Referral * Consultation (Routine) - Closed Specialty Diagnoses / Procedures Referred By Contac t Referred To Contact Pulmonology Diagnoses Pulmonary emphysema, unspecified emphysema type Mylene Carrero PA [facility] [place] [address] [facility] [address] [place] [address] Referral ID Status Reason Start Date Expiration Date V isits Requested Visits Authorized [id number] Closed Consult, Test & Treat 03/10/2021 03/10/2022 1 1 * Consultation (Routine) - Closed Specialty Diagnoses / Procedures Referred By Contac t Referred To Contact Cardiology Diagnoses Cardiomyopathy, unspecified type Mylene Carrero PA [facility] [place] [address] [place] [address] Referral ID Status Reason Start Date Expiration Date V isits Requested Visits Authorized [id number] Closed Consult, Test & Treat 03/10/2021 03/10/2022 36 36 Encounter Details Date Type Department Care Team (Late st Contact Info) Description 03/09/2021 2:40 PM EST Office Visit Cardiology at [address] [phone] Mylene Carrero PA [facility] [place] [address] Cardiomyopathy, unspecified type; Gout, unspecified cause, unspecified chronicity, unspecified site; Chronic systolic (congestive) heart failure ; Pulmonary emphysema, unspecified emphysema type Social History Tobacco Use Types Packs/Day [...] Sign Reading Time Taken Comments Blood Pressure 94/67 03/09/2021 2:38 PM EST Pulse 76 03/09/2021 2:38 PM EST Temperature - - Respiratory Rate - - Oxygen Saturation 97% 03/09/2021 2:38 PM EST 2L Inhaled Oxygen Concentration - - Weight 69.7 kg (153 lb 9.6 oz) 03/09/2021 2:38 P M EST Height 162.6 cm (5' 4) 03/09/2021 2:38 PM EST Body Mass Index 26.37 03/09/2021 2:38 PM EST documented in this encounter Progress Notes * Mylene Carrero PA - 03/09/2021 2:40 PM EST Images from the original note were not included. [facility] Section of Advanced Heart Failure Cardiology [facility] [place] [address] OUTPATIENT VISIT DATE: 03/09/21 OUTPATIENT VISIT TYPE: Establish New Patient PRIMARY CARE PHYSICIAN: Angela Cotto MD REFERRING PHYSICIAN: No primary care provider on file. ID: Stacy Esparza is a 65 y.o. 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 She had been suffering with acute shortness of breath on exertion which prompted evaluation. Coronary angiography revealed ISR (HIGH PRESSURE FIRER) of the mRCA with collaterals from the L. Case complicated by acute hypoxic respiratory failure requiring rescue BiPAP, IV diuresis and admission to the cardiac critical care unit for further management. She was under the care of Dr Reddy and Dr Bejaranoring her stay. Of note, cardiomyopathy felt to be out of proportion to the degree of CAD, thus attempted cMR while admitted but she was coughing and the study could not be completed. 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 She tells me that she feels fabulous. Marked improvement in shortness of breath. No chest pain, palpitations or dizziness. Weight stable at home, ~150 lbs on average. Continues to have upper airwaycongestion and coughed frequently during our visit but states that this is not happening to this degree at home. Recent gout flare. Historically took allopurinol and colchicine. Uric acid today 9.7. Will discuss management with PCP. OUTPATIENT MEDICATIONS: Current Outpatient Medications Medication Sig Note Dispense Refill ??? colchicine (Colcrys) 0.6 mg Tablet Take [...] tablet Take 1 tablet by mouth daily. ALLERGIES: Allergies Allergen Reactions ??? Lisinopril Other (See Comments) cough PAST MEDICAL HISTORY: Patient Active Problem List Diagnosis ??? CAD (coronary artery disease) ??? Other primary cardiomyopathies ??? Alcohol abuse, unspecified ??? Hyperpotassemia ??? Cardiogenic shock ??? Unspecified hypothyroidism PAST SURGICAL HISTORY: No past surgical history on file. 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 takotsubo's) LBBB or chronic RV pacing Amyloid (waxy skin, easy bruising, thick tongue, renal dsyf, neuropathy) Sarcoid hx or family history or suggestion Sleep disordered breathing Autoimmune disorder / collagen vascular disease REVIEW OF SYSTEMS: See HPI above for pertinent positives and negatives. All other ROS negative by system (including general, HEENT, pulmonary, gastrointestinal, genitourinary, musculoskeletal, endocrine, hematologic, extremity, skin, neurology, and psychiatric) with exceptions below. PHYSICAL EXAMINATION: VITALS: BP 94/67 Pulse 76 Ht 162.6 cm (5' 4) Wt 69.7 kg (153 lb 9.6 oz) SpO2 97% Comment: 2L BMI 26.37 kg/m?? GENERAL: Pleasant and in no acute distress HEENT: PERRL, anicteric sclerae, no injection. NECK: Supple with full ROM. No LAD. Trachea midline. JVP visualized and is not elevated. CARDIAC: No abnormal precordial movements. RRR with normal S1 and S2. No murmurs, rub, or gallops noted. PULMONARY: Symmetrical expansion. Clear lungs bilaterally. Large airway congestion, clears with cough ABDOMEN: Positive bowel sounds. Soft, NT, ND. No rebound or guarding. EXTREMITY: Warm and well perfused. No edema. No erythema. SKIN: No concerning lesions noted on areas of skin visualized during exam. NEUROLOGICAL: Alert and oriented to person, place, date. PSYCH: Mood appropriate. LABS: Recent Labs 03/09/21 1350 NA 141 K 4.8 CL 100 CO2 30 BUN 25* CREATININE 1.14 Recent Labs 03/09/21 1350 AST 13 ALT 13 ALKPHOS 65 BILITOT 0.3 Recent Labs 03/09/21 1350 CALCIUM 9.4 Recent Labs 03/09/21 1350 WBC 8.9 HGB 14.1 HCT 42.4 PLATELET 304 No results for input(s): INR in the last 168 hours. No results for input(s): CK, TROPONINT in the last 168 hours. Recent Labs 02/21/21 1655 TSH 3.99 No results for input(s): HA1C in the last 7068 hours. ProBNP Date Value Ref Range Status 03/09/2021 4,634 (H) <=124 pg/mL Final (No ProBNP to compare to) CARDIOLOGY RELEVANT STUDIES: CXR CXR 02/25/21: IMPRESSION Bibasilar opacities, suspect subsegmental atelectases. Stable cardiomegaly. EKG 02/21/21: SR, LAD, inferior infarct pattern, PRWP Holter monitor Echo and BORIS TTE 02/22/21: LVEF 15-20%, RV nl, 2+ MR, small to moderate effusion Stress test Coronary Angiography 02/21/21: HIGH PRESSURE FIRER mRCA (ISR), 50% mLAD, mild diffuse disease LCx; LVEDP 40 02/15/21 ([facility]): LVEF 25-30%, diffuse hk, severe MR 05/05/12: LVEF 35% Right Heart Catheterization Endomyocardial Biopsy Cardiac MRI CPET PFT's Sleep Study I thoroughly reviewed the patient's current clinical status, the pertinent laboratory and recent cardiovascular or imaging studies, and the active management plan. IMPRESSION: Stacy Esparza is a 65 y.o. female with history as above, seen in the heart failure clinic today with the following impression and plan: 1. CMP, HFrEF - Appears well compensated and euvolemic. ProBNP elevated but was not drawn during recent hospital stay to compare LVEF, RV function, Valve disease LVEF 15-20%; RV nl; LVIDd 7.35 Etiology, Ischemic Evaluation Possibly mixed etiology although CMP felt to be out of proportion to degree of CAD NYHA functional class ACC/AHA Stage Dry Weight NYHA class IIIa; ACC/AHA Stage C Dry Weight ~150 lbs Beta Myrna and/or Ivabradine Metoprolol succinate 100 mg daily JAKE or ARB or Entresto Losartan 25 mg daily Aldosterone antagonist Spironolactone 12.5 mg daily Diuretic Torsemide 40 mg daily ICD or SULKY DRIVER-D if indicated Reassess candidacy for ICD 3 months after all GDMT initiated Other considerations CAD - On aspirin and statin therapy (CoQ10 to offset statin side effects) HR and BP well controlled. Low BP may be a limiting factor when titrating meds Suspect oxygen requirement may be multifactorial - recommend pulmonary medicine consult PLAN: Referrals sent to cardiac rehab and pulmonary medicine Ideally, would like to attempt repeat cardiac MRI 3 months after GDMT initiated Check the cost of Entresto and SGLT2i - part D coverage to start after the first of the year COUNSELING: The signs and symptoms to be aware of for more urgent evaluation were discussed and all questions addressed. The patient was counseled to continue cardiovascular care management and self management principles and to notify providers of any change in clinical status. Additionally, we discussed the fo llowing non-pharmacological measures during this visit: ??? Smoking and alcohol abstinence/cessation, if applicable ??? Dietary and medication compliance ??? Monitoring daily weights and blood pressures ??? Exercise regimen ??? When to call our office FOLLOW UP: 2 months in clinic with labs, will attempt to add Entresto and SGLT2i in the interim. After all titrated to tolerated dose, would like to try for repeat cardiac MRI. D/w SHEREE Shelley documented in this encounter Plan of Treatment Upcoming Encounters Date Type Department Care Team (Late st Contact Info) Description 10/17/2023 10:30 AM EDT Appointment Non-[place] [phone] [place] [address] 10/17/2023 11:40 AM EDT Office Visit Cardiology at [address] [phone] [place] [address] 11/15/2023 10:00 AM EDT Hospital Encounter Non-[place]vasive [place] [phone] Arrived 11/21/2023 1:40 PM EDT Office Visit Cardiology at [address] [phone] Lea Hodges MD [facility] [place] [address] Scheduled Referrals Name Type Priority Associated Diagnoses Orde r Schedule Referral to Cardiac Rehab Outpatient Referral Routine Cardiomyopathy, unspecified type Ordered: 03/10/2021 Referral to Pulmonology Outpatient Referral Routine Pulmonary emphysema, unspecified emphysema type Ordered: 03/10/2021 documented as of this encounter Results * (ABNORMAL) Comprehensive metabolic panel (non-fasting) (03/09/2021 1:50 PM EST) Glucose Lvl 125 65 - 199 mg/dL [facility] Comment:Diabetes: >=200 mg/d L plus symptoms BUN 25(H) 8 - 18 mg/dL [facility] Creatinine 1.14 0.70 - 1.20 mg/dL [facility] Sodium 141 135 - 145 mmol/L [facility] Potassium 4.8 3.5 - 5.0 mmol/L [facility] Comment: Please note: ??Patients with WBC >100,000 may have falsely elevated Potassium levels. ??For accurate Potassium quantification in these patients send serum separator tube (gold top) for subsequent determinations. ??Contact the Clinical Chemistry Laboratory if there are any questions. Chloride 100 98 - 107 mmol/L [facility] CO2 30 22 - 31 mmol/L [facility] Anion Gap 11 5 - 15 mmol/L [facility] Calcium 9.4 8.5 - 10.5 mg/dL [facility] Total Protein 7.0 6.1 - 8.0 g/dL [facility] Albumin 4.6 3.2 - 5.2 g/dL [facility] AST 13 0 - 30 unit/L [facility] ALT 13 0 - 30 unit/L [facility] Alk Phos 65 35 - 105 unit/L [facility] Total Bilirubin 0.3 0.2 - 1.3 mg/dL [facility] Estimated GFR 50(L) >=60 mL/min/1. 73 m?? [facility] Comment: This patient? s estimated glomerular filtration rate (eGFR) is between 50 mL/min/1.73 m2 (patients with less muscle mass) and 58 mL/min/1.73 m2 (patients with more muscle mass) [...] and symptoms in addition to eGFR. Blood 03/09/2021 1:50 PM EST 03/09/2021 1:55 PM EST Narrative Resulting Agency Comment Spec In Lab Alisa Borrero MD CHEMISTRY OR DERABLES [facility] [place] [address] * (ABNORMAL) pro-Brain Natriuretic Peptide (03/09/2021 1:50 PM EST) ProBNP 4,634(H) <=124 pg/mL [facility] Blood 03/09/2021 1:50 PM EST 03/09/2021 1:55 PM EST Narrative Resulting Agency Comment Spec In Lab Alisa Borrero MD CHEMISTRY OR DERABLES Performing Organization Address City/[facility]/ZIP Co de Phone Number [facility] [place] [address] * (ABNORMAL) Uric acid (03/09/2021 1:50 PM EST) Uric Acid 9.7(H) 2.5 - 6.5 mg/dL [facility] Blood 03/09/2021 1:50 PM EST 03/09/2021 1:55 PM EST Narrative Resulting Agency Comment Spec In Lab Alisa Borrero MD CHEMISTRY OR DERABLES Performing Organization Address City/[facility] Co de Phone Number [facility] [place] [address] documented in this encounter Visit Diagnoses Diagnosis Cardiomyopathy, unspecified type Gout, unspecified cause, unspecified chronicity, unspecified site Chronic systolic (congestive) heart failure Pulmonary emphysema, unspecified emphysema type documented in this encounter Care Teams Equity Trader Relationship Specialty Start Date End Date Angela Cotto MD [address] [place] [address] PCP - General Family Medicine 02/20/21 07/30/21 documented as of this encounter
--- OUTSIDE RECORDS SUMMARY | 2023-10-16 01:25 | XMS_ITS | Encounter Summary ---
Author Organization [facility] [place] [address] Care Team Providers Care Product Handler Name Role Phone Angela Cotto MD Primary Care Provider [phone] Reason for Referral * Diagnostic Test (Routine) - Closed Specialty Diagnoses / Procedures Referred By Contac t Referred To Contact Diagnoses Swelling of limb, right Procedures Duplex for DVT, Leg, [place], DRUG ABUSE RESISTANCE EDUCATION OFFICER [facility] [place] [address] [facility] Vascular Lab [address] [place] [phone] Referral ID Status Reason Start Date Expiration Date V isits Requested Visits Authorized [id number] Closed Specialty Service Requested 03/09/2021 03/09/2022 1 1 Reason for Visit * Diagnostic Test (Routine) - Closed Specialty Diagnoses / Procedures Referred By Contac t Referred To Contact Vascular Surgery Diagnoses Other specified soft tissue disorders R LOWER LEG SWELLING/REDNESS Oleg Trinidad MD [address] [place] [address] [facility] V[facility] Surg [address] [place] [phone] Referral ID Status Reason Start Date Expiration Date V isits Requested Visits Authorized [id number] Closed Test Only 03/07/2021 03/07/2022 1 1 Encounter Details Date Type Department Care Team (Late st Contact Info) Description 03/09/2021 12:30 PM EST Tech Visit Vascular Lab at [place] [phone] Cornell Parikh [place] Swelling of limb, right Social History Tobacco Use Types Packs/Day Years [...] 10:30 AM EDT Appointment Non-[place] [phone] [place] [address] 10/17/2023 11:40 AM EDT Office Visit Cardiology at [address] [phone] [place] [address] 11/15/2023 10:00 AM EDT Hospital Encounter Non-[place]vasive [place] [phone] Arrived 11/21/2023 1:40 PM EDT Office Visit Cardiology at [address] [phone] Lea Hodges MD [facility] [place] [address] documented as of this encounter Procedures Procedure Name Priority Date/Time Associated Diagnosis Comments PRG DUPLEX SCAN EXTREMITY VEIN INCL RESPONSE COMPRESS; UNILAT/LMTD Routine 03/09/2021 12:26 PM EST Swelling of limb, right documented in this encounter Results * Duplex for DVT, Leg, Unilat (03/09/2021 12:26 PM EST) VB Text Report Department: Vascular Surgery Lab Patient: [id number] (STACY STOKES) CPT: [id number] Referring Physician: ELIDA POWERS ?? Indications: R ankle swelling and redness. ? DVT Findings: RIGHT: Patent common femoral vein and popliteal vein with spontaneous, respirophasic Doppler waveforms that respond normally to augmentation maneuvers. The common femoral vein, saphenofemoral junction, femoral vein through the thigh and popliteal vein are fully compressible. Patent posterior tibial and peroneal veins with no evidence of thrombus. Interpretation: RIGHT: ??No evidence of lower extremity deep venous thrombosis. Comparison: ??No previous study in our vascular lab database for comparison. Electronically Signed by: ADELA ERICKSON on 2021-03-09 01:27:44 PM [facility] VB Text Report End of Report [facility] 03/09/2021 12:2 6 PM EST Elida Powers DRUG ABUSE RESISTANCE EDUCATION OFFICER VASCULAR ORDERABLE S [facility] documented in this encounter Visit Diagnoses Diagnosis Swelling of limb, right Swelling of limb documented in this encounter Care Teams Product Handler Relationship Specialty Start Date End Date Angela Cotto MD [address] [place] [address] PCP - General Family Medicine 02/20/21 07/30/21 documented as of this encounter
--- OUTSIDE RECORDS SUMMARY | 2023-10-16 01:25 | XMS_ITS | Encounter Summary ---
Author Organization Formerly [facility] [place] [address] Care Team Providers Care Rehab Nurse Name Role Phone Angela Cotto MD Primary Care Provider [phone] Encounter Details Date Type Department Care Team (Latest Contact Info) Description 03/09/2021 1:40 PM EST Laboratory Appointment Lab [address] [place] [phone] Cardiomyopathy, unspecified type; Gout, unspecified cause, unspecified chronicity, unspecified site; Chronic systolic (congestive) heart failure Social History [...] 10:30 AM EDT Appointment Non-[place]vasive [place] [phone] Lea Jay MD [facility] [place] [address] 10/17/2023 11:40 AM EDT Office Visit Cardiology at [address] [phone] Lea Jay MD [facility] [place] [address] 11/15/2023 10:00 AM EDT Hospital Encounter Non-Invasive [place] [address] Arrived 11/21/2023 1:40 PM EDT Office Visit Cardiology at [address] [phone] Lea Hodges MD [facility] [place] [address] documented as of this encounter Procedures Procedure Name Priority Date/Time Associated Diagnosis Comments HEMOGRAM Routine 03/09/2021 1:50 PM EST Cardiomyopathy, unspecified type DIFFERENTIAL, AUTOMATED Routine 03/09/2021 1:50 PM EST Cardiomyopathy, unspecified type HC CBC,PLT & AUTO DIFF Routine 1:50 PM EST Cardiomyopathy, unspecified type HC URIC ACID, SERUM Routine 03/09/2021 1 :50 PM EST Gout, unspecified cause, unspecified chronicity, unspecified site HC PROBNP Routine 03/09/2021 1:50 PM EST Cardiomyopathy, unspecified type Chronic systolic (congestive) heart failure COMPREHENSIVE METABOLIC PANEL (NON-FASTING) STAT 03/09/2021 1:50 PM EST Cardiomyopathy, unspecified type documented in this encounter Results * Differential, Automated (03/09/2021 1:50 PM EST) Neutrophils % 52.5 % [facility] Neutr Abs (ANC) 4.68 1.70 - 6.10 x10(3)/mcL [facility] Lymphocytes % 35.1 % [facility] Lymphocytes Abs 3.1 0.9 - 3.2 x10(3)/[facility] Monocytes % 8.9 % [facility] Monocyte Abs 0.8 0.3 - 0.9 x10(3)/[facility] Eosinophils % 2.4 % [facility] Eosinophils Abs 0.2 0.0 - 0.4 x10(3)/[facility] Basophils % 0.9 % [facility] Basophils Abs 0.1 0.0 - 0.1 x10(3)/[facility]OR[facility] Immature Gran % 0.20 % [facility] Comment: Immature granulocytes(IG's)percentage and absolute count will include metamyelocytes, myelocytes, and promyelocytes. Blood smears from CBCs yielding IG's will be scanned manually for concordance. If this scan disagrees with the automated IG or if promyelocytes are noted, a manual differential will be performed. Nelida Gran Abs 0.02 0.00 - 0.04 x10(3)/[facility] Blood 03/09/2021 1:50 PM EST 03/09/2021 1:55 PM EST Narrative Resulting Agency Comment Spec In Lab Mylene [facility] ORDERABLE S Performing Organization Address City/State/[facility] Co de Phone Number [facility] [place] [address] * Hemogram (03/09/2021 1:50 PM EST) WBC 8.9 4.0 - 9.5 x10(3)/[facility] RBC 4.64 4.00 - 5.21 x10(6)/[facility] Hemoglobin 14.1 11.7 - 15.5 g/dL [facility] Hematocrit 42.4 35.7 - 45.8 % [facility] MCV 91.4 82.6 - 94.4 [facility] MCH 30.4 27.1 - 32.0 pg [facility] MCHC 33.3 31.7 - 35.0 g/dL [facility] Platelets 304 145 - 357 x10(3)/[facility] RDWSD 45.7 37.0 - 46.0 [facility] RDWCV 13.6 11.5 - 14.1 % [facility] MPV 9.2 7.6 - 12.9 [facility] nRBC % Auto 0.0 % [facility] nRBC Abs Auto 0.000 0.000 - 0.000 x10(3)/[facility] Blood 03/09/2021 1:50 PM EST 03/09/2021 1:55 PM EST Narrative Resulting Agency Comment Spec In Lab Mylene BENTLEY HEMATOLOGY ORDERABLE S [facility] [place] [address] * (ABNORMAL) pro-Brain Natriuretic Peptide (03/09/2021 1:50 PM EST) ProBNP 4,634(H) <=124 pg/mL [facility] Blood 03/09/2021 1:50 PM EST 03/09/2021 1:55 PM EST Narrative Resulting Agency Comment Spec In Lab Alisa Borrero MD CHEMISTRY OR DERABLES [facility] [place] [address] * (ABNORMAL) Uric acid (03/09/2021 1:50 PM EST) Uric Acid 9.7(H) 2.5 - 6.5 mg/dL [facility] Blood 03/09/2021 1:50 PM EST 03/09/2021 1:55 PM EST Narrative Resulting Agency Comment Spec In Lab Alisa Borrero MD CHEMISTRY OR DERABLES [facility] [place] [address] * (ABNORMAL) Comprehensive metabolic panel (non-fasting) (03/09/2021 1:50 PM EST) Glucose Lvl 125 65 - 199 mg/dL [facility] Comment:Diabetes: >=200 mg/d L plus symptoms BUN 25(H) 8 - 18 mg/dL [facility] Creatinine 1.14 0.70 - 1.20 mg/dL [facility] Sodium 141 135 - 145 mmol/L [facility] Potassium 4.8 3.5 - 5.0 mmol/L [facility] Comment: Please note: ??Patients with WBC >100,000 may have falsely elevated Potassium levels. ??For accurate Potassium quantification in these patients send serum separator tube (gold top) for subsequent determinations. ??Contact the Clinical Chemistry Laboratory if there are any questions. Chloride 100 98 - 107 mmol/L [facility] CO2 30 22 - 31 mmol/L [facility] Anion Gap 11 5 - 15 mmol/L [facility] Calcium 9.4 8.5 - 10.5 mg/dL [facility] Total Protein 7.0 6.1 - 8.0 g/dL [facility] Albumin 4.6 3.2 - 5.2 g/dL [facility] AST 13 0 - 30 unit/L [facility] ALT 13 0 - 30 unit/L [facility] Alk Phos 65 35 - 105 unit/L [facility] Total Bilirubin 0.3 0.2 - 1.3 mg/dL [facility] Estimated GFR 50(L) >=60 mL/min/1. 73 m?? [facility] Comment: This patient? s estimated [...] Lab Alisa Borrero MD CHEMISTRY OR DERABLES [facility] [place] [address] documented in this encounter Visit Diagnoses Diagnosis Cardiomyopathy, unspecified type Gout, unspecified cause, unspecified chronicity, unspecified site Chronic systolic (congestive) heart failure documented in this encounter Care Teams Rehab Nurse Relationship Specialty Start Date End Date Angela Cotto MD [address] [place] [address] PCP - General Family Medicine 02/20/21 07/30/21 documented as of this encounter
--- OUTSIDE RECORDS SUMMARY | 2023-10-16 01:25 | XMS_ITS | Encounter Summary ---
Author Organization [facility] [place] [address] Care Team Providers Care Risk Advisor Name Role Phone Angela Cotto MD Primary Care Provider [phone] Encounter Details Date Type Department Care Team (Late st Contact Info) Description 05/17/2021 Refill Cardiology at [address] [phone] Mylene Carrero PA [facility] [place] [address] Social History Tobacco Use Types Packs/Day Years [...] 10:30 AM EDT Appointment Non-Invasive [place] [phone] [facility] [place] [address] 10/17/2023 11:40 AM EDT Office Visit Cardiology at [address] [phone] [place] [address] 11/15/2023 10:00 AM EDT Hospital Encounter Non-Invasive [place] [phone] Arrived 11/21/2023 1:40 PM EDT Office Visit Cardiology at [address] [phone] Lea Hodges MD [facility] [place] [address] documented as of this encounter Goals Goal [...] on filedocumented in this encounter Care Teams Risk Advisor Relationship Specialty Start Date End Date Angela Cotto MD [address] [place] [address] PCP - General Family Medicine 02/20/21 07/30/21 documented as of this encounter
--- OUTSIDE RECORDS SUMMARY | 2023-10-16 01:25 | XMS_ITS | Encounter Summary ---
Author Organization [facility] [place] [address] Care Team Providers Care Locomotive Mechanic Apprentice Name Role Phone Angela Cotto MD Primary Care Provider [phone] Encounter Details Date Type Department Care Team (Late st Contact Info) Description 03/27/2021 Orders Only Cardiology at [address] [phone] Mylene Carrero PA [facility] [place] [address] Social History Tobacco Use Types Packs/Day Years [...] 10:30 AM EDT Appointment Non[place] [phone] Lea Jay MD [facility] [place] [address] 10/17/2023 11:40 AM EDT Office Visit Cardiology at [address] [phone] [place] [address] 11/15/2023 10:00 AM EDT Hospital Encounter Non-[place] [phone] Arrived 11/21/2023 1:40 PM EDT Office Visit Cardiology at [address] [phone] Lea Hodges MD [facility] [place] [address] documented as of this encounter Goals Goal Patient Goal Type Associated Problems Recent Progress Patient-Stated? Author [facility] Medication Compliance and Understanding Patient Facing Action Plan No Yahir Mcallister, [facility] Note: To live and see improvement in her heart function and ability to have good quality of life documented as of this encounter Visit Diagnoses Not on filedocumented in this encounter Care Teams Locomotive Mechanic Apprentice Relationship Specialty Start Date End Date Angela Cotto MD [address] [place] [address] PCP - General Family Medicine 02/20/21 07/30/21 documented as of this encounter
--- OUTSIDE RECORDS SUMMARY | 2023-10-16 01:25 | XMS_ITS | Encounter Summary ---
Author Organization Formerly [facility] Address [facility] [place] [address] Care Team Providers Care Concrete Products Machine Operator Name Role Phone Angela Cotto MD Primary Care Provider Encounter Details Date Type Department Care Team (Late st Contact Info) Description 05/18/2021 Notes Only Care Management [facility] [place] [address] Jeromy Ellsworth Social History Tobacco Use Types [...] encounter Progress Notes * Jeromy Ellsworth - 05/18/2021 4:10 PM EST I sent the application for assistance with Jardiance to [facility] for their signature and prescription. I will follow through with the remainder of the application once everything is returned to me. * Jeromy Ellsworth - 05/18/2021 4:10 PM EST DISGREGARD LAST NOTE I sent a letter and the application for assistance with Jardiance to the patient for them to complete, sign and return to the Medication Assistance Program. The MAP office will follow up with the patient in 5 business days to see if the patient has received the application and if they have any questions. documented in this encounter Plan of Treatment Upcoming Encounters Date Type Department Care Team (Late st Contact Info) Description 10/17/2023 10:30 AM EDT Appointment Non-[place] [phone] [place] [address] 10/17/2023 11:40 AM EDT Office Visit Cardiology at [address] [phone] [place] [address] 11/15/2023 10:00 AM EDT Hospital Encounter Non-[place] [phone] Arrived 11/21/2023 1:40 PM EDT Office Visit Cardiology at [address] [phone] Lea Hodges MD [facility] [place] [address] documented as of this encounter Goals Goal [...] on filedocumented in this encounter Care Teams Concrete Products Machine Operator Relationship Specialty Start Date End Date Angela Cotto MD [address] [place] [address] PCP - General Family Medicine 02/20/21 07/30/21 documented as of this encounter
--- OUTSIDE RECORDS SUMMARY | 2023-10-16 01:25 | XMS_ITS | Encounter Summary ---
Author Organization [facility] Address [facility] [place] [address] Care Team Providers Care Motor Setter Name Role Phone Angela Cotto MD Primary Care Provider [phone] Encounter Details Date Type Department Care Team (Late st Contact Info) Description 05/16/2021 11:00 AM EST Office Visit Cardiology at [address] [phone] Mylene Carrero PA [facility] [place] [address] Chronic systolic (congestive) heart failure Social History [...] Sign Reading Time Taken Comments Blood Pressure 113/56 05/16/2021 10:51 AM EST Pulse 77 05/16/2021 10:51 AM EST Temperature - - Respiratory Rate - - Oxygen Saturation 97% 05/16/2021 10:51 AM EST Inhaled Oxygen Concentration - - Weight 67 kg (147 lb 11.2 oz) 05/16/2021 10:51 A M EST Height 162.6 cm (5' 4) 05/16/2021 10:51 AM EST Body Mass Index 25.35 05/16/2021 10:51 AM EST documented in this encounter Patient Instructions * Patient Instructions* Mylene Carrero PA - 05/16/2021 11:37 AM EST Increase Entresto to 1 full tablet twice daily Stop torsemide and start Lasix (furosemide) 40 mg daily; daily weights documented in this encounter Progress Notes * Mylene Carrero PA - 05/16/2021 11:00 AM EST Images from the original note were not included. [facility] Section of Advanced Heart Failure Cardiology [facility] [place] [address] OUTPATIENT VISIT DATE: 05/17/21 OUTPATIENT VISIT TYPE: Follow up OV PRIMARY CARE PHYSICIAN: Angela Cotto MD REFERRING [...] admitted on 02/21/21 from the cardiac laboratory supervisor, referred for elective coronary angiography by Dr Hall in the setting of reduced LVEF to ~25% from recovered to 52%. She had been suffering with acute shortness of breath on exertion which prompted evaluation. Coronary angiography revealed ISR (CHROME CLEANER) of the mRCA with collaterals from the [...] stable at home, ~150 lbs on average. Upper airway congestion and cough improving from prior visit. Gout continues to be a problem for her. States that this has been ongoing since she left the hospital this fall. Historically took allopurinol and colchicine. Believes that this was not an issue on furosemide. Uric acid 9.7 at last visit. Follow up with PCP upcoming. OUTPATIENT MEDICATIONS: Current Outpatient Medications Medication Sig Note Dispense Refill ??? empagliflozin (Jardiance) 10 mg Tablet Take 1 tablet by mouth daily. 30 tablet 11 ??? colchicine (Colcrys) 0.6 mg Tablet Take [...] Take 2 tablets by mouth every morning. (Patient taking differently: Take 20 mg by mouth every morning.) 90 tablet 3 ??? allopurinoL (Zyloprim) 100 [...] Take 1 tablet by mouth daily. ??? sacubitriL-valsartan (Entresto) 24-26 mg Tablet tablet Take 1 tablet by mouth 2 times daily. 60tablet 11 ??? furosemide (Lasix) 40 mg Tablet Take 1 tablet by mouth daily. 30 tablet 5 ??? naproxen sodium (ALEVE) 220 mg Capsule Take by mouth. 03/27/2021: As needed. ??? nicotine polacrilex (Nicorette) 2 mg Gum Take 1 each by mouth every 2 hours as needed for Smoking cessation. (Patient not taking: Reported on 05/16/2021) 50 each 3 ??? nitroGLYcerin (NITROSTAT) 0.[address] 1 tablet under the tongue daily as needed for Chest pain. (Patient not taking: No sig reported) 90 tablet 3 ALLERGIES: Allergies Allergen Reactions ??? Lisinopril Other (See Comments) cough Other reaction(s): Cough ??? Venom-Honey Bee PAST MEDICAL HISTORY: Patient Active Problem List Diagnosis ??? CAD (coronary artery disease) ??? Other primary cardiomyopathies ??? Alcohol abuse, unspecified ??? Hyperpotassemia ??? Cardiogenic shock ??? Unspecified hypothyroidism PAST SURGICAL HISTORY: No past surgical history on file. 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 PHYSICAL EXAMINATION: VITALS: BP 113/56 (BP Location (NBP): Left arm, Patient Position: Sitting, BP Cuff Sizes: Adult (25-34 cm)) Pulse 77 Ht 162.6 cm (5' 4) Wt 67 kg (147 lb 11.2 oz) SpO2 97% BMI 25.35 kg/m?? GENERAL: Pleasant and in no acute distress HEENT: PERRL, anicteric sclerae, no injection. NECK: Supple with full ROM. No LAD. Trachea midline. JVP visualized and is not elevated. CARDIAC: No abnormal precordial movements. RRR with normal S1 and S2. No murmurs, rub, or gallops noted. PULMONARY: Symmetrical expansion. Clear lungs bilaterally. ABDOMEN: Positive bowel sounds. Soft, NT, ND. No rebound or guarding. EXTREMITY: Warm and well perfused. No edema. No erythema. SKIN: No concerning lesions noted on areas of skin visualized during exam. NEUROLOGICAL: Alert and oriented to person, place, date. PSYCH: Mood appropriate. LABS: Recent Labs 05/16/21 1016 NA 139 K 4.5 CL 99 CO2 28 BUN 20* CREATININE 1.15 No results for input(s): AST, ALT, ALKPHOS, BILITOT, BILIDIR in the last 168 hours. Recent Labs 05/16/21 1016 CALCIUM 9.9 No results for input(s): WBC, HGB, HCT, PLATELET in the last 168 hours. No results for input(s): INR in the last 168 hours. No results for input(s): CK, TROPONINT in the last 168 hours. Recent Labs 02/21/21 1655 TSH 3.99 No results for input(s): HA1C in the last 7068 hours. ProBNP Date Value Ref Range Status 05/16/2021 1,762 (H) <=124 pg/mL Final 03/09/2021 4,634 (H) <=124 pg/mL Final (No ProBNP to compare to) CARDIOLOGY RELEVANT STUDIES: CXR CXR 02/25/21: IMPRESSION Bibasilar opacities, suspect subsegmental atelectases. Stable cardiomegaly. EKG 02/21/21: SR, LAD, inferior infarct pattern, PRWP Holter monitor Echo and BORIS TTE 02/22/21: LVEF 15-20%, RV nl, 2+ MR, small to moderate effusion 02/15/21 ([facility]): LVEF 25-30%, diffuse hk, severe MR 05/05/12: LVEF 35% Stress test Coronary Angiography 02/21/21: CHROME [employer]ANER mRCA (ISR), 50% mLAD, mild diffuse disease LCx; LVEDP 40 Right Heart Catheterization Endomyocardial Biopsy Cardiac MRI [...] - Appears well compensated and euvolemic. ProBNP with marked downtrend from prior visit. LVEF, RV function, Valve disease LVEF 15-20%; RV nl; LVIDd 7.35 Etiology, Ischemic Evaluation Possibly mixed etiology although CMP felt to be out of proportion to degree of CAD NYHA functional class ACC/AHA Stage Dry Weight NYHA class IIIa; ACC/AHA Stage C Dry Weight ~150 lbs Beta Myrna and/or Ivabradine Metoprolol succinate 100 mg daily JAKE or ARB or Entresto Entresto 24-26 mg - increase to 1 full tablet twice daily Aldosterone antagonist Spironolactone 12.5 mg daily Diuretic Stop torsemide and start Lasix 40 mg daily (2/2 ongoing gout issues) ICD or HEALTHCARE RISK CONTROL CONSULTANT-D if indicated Reassess candidacy for ICD in ~2 months (after all GDMT initiated) Other considerations Jardiance 10 mg daily Attempt cMR again CAD - On aspirin and statin therapy (CoQ10 to offset statin side effects) HR and BP well controlled PLAN: Ideally, would like to attempt repeat cardiac MRI Stop torsemide and start furosemide given ongoing issue with gout Patient will d/w PCP starting allopurinol COUNSELING: The signs and symptoms to be [...] When to call our office FOLLOW UP: As above, in clinic with Dr Reddy with MRI and labs SHEREE Arthur Patient Instructions 1. Increase Entresto to 1 full tablet twice daily 2. Stop torsemide and start Lasix (furosemide) 40 mg daily; daily weights documented in this encounter Plan of Treatment Upcoming Encounters Date Type Department Care Team (Late st Contact Info) Description 10/17/2023 10:30 AM EDT Appointment Non[place] [address] Lea Jay MD [facility] [place] [address] 10/17/2023 11:40 AM EDT Office Visit Cardiology at [address] [phone] [place] [address] 11/15/2023 10:00 AM EDT Hospital Encounter Non-[place] [address] Arrived 11/21/2023 1:40 PM EDT Office Visit Cardiology at [address] [phone] Lea Hodges MD [facility] [place] [address] documented as of this encounter Goals Goal Patient Goal Type Associated Problems Recent Progress Patient-Stated? Author [facility] Medication Compliance and Understanding Patient Facing Action Plan No Yahir Mcallister, [facility] Note: To live and see improvement in her heart function and ability to have good quality of life documented as of this encounter Results * (ABNORMAL) pro-Brain Natriuretic Peptide (05/16/2021 10:16 AM EST) Pathologist [facility] ProBNP 1,762(H) <=124 pg/mL [facility] Blood 05/16/2021 10:1 6 AM EST 05/16/2021 11:31 AM EST Narrative Resulting Agency Comment Spec In Lab Alisa Borrero MD CHEMISTRY OR DERABLES [facility] [place] [address] * (ABNORMAL) Basic Metabolic Panel (non-fasting) (05/16/2021 10:16 AM EST) [facility] Glucose Lvl Not Perf 65 - 199 [facility] Comment: Sample improperly processed prior to receipt. Diabetes: >=200 mg/dL plus symptoms BUN 20(H) 8 - 18 mg/dL [facility] Creatinine 1.15 0.70 - 1.20 mg/dL [facility] Sodium 139 135 - 145 mmol/L [facility] Potassium 4.5 3.5 - 5.0 mmol/L [facility] Comment: Please note: ??Patients with WBC >100,000 may have falsely elevated Potassium levels. ??For accurate Potassium quantification in these patients send serum separator tube (gold top) for subsequent determinations. ??Contact the Clinical Chemistry Laboratory if there are any questions. Chloride 99 98 - 107 mmol/L [facility] CO2 28 22 - 31 mmol/L [facility] Anion Gap 12 5 - 15 mmol/L [facility] Calcium 9.9 8.5 - 10.5 mg/dL [facility] Estimated GFR 50(L) >=60 mL/min/1. 73 m?? [facility] Comment: This patient? s [...] Narrative Resulting Agency Comment Spec In Lab Alsia Borrero MD CHEMISTRY OR DERABLES [facility] [place] [address] documented in this encounter Visit Diagnoses Diagnosis Chronic systolic (congestive) heart failure documented in this encounter Care Teams Motor Setter Relationship Specialty Start Date End Date Crose, Angela A, MD [address] [place] [address] PCP - General Family Medicine 02/20/21 07/30/21 documented as of this encounter
--- OUTSIDE RECORDS SUMMARY | 2023-10-16 01:25 | XMS_ITS | Encounter Summary ---
Author Organization [facility] [place] [address] Care Team Providers Care Assortment Planner Name Role Phone Angela Cotto MD Primary Care Provider Encounter Details Date Type Department Care Team (Late st Contact Info) Description 03/28/2021 [place] [phone] Kimberly Osei RN Social History Tobacco Use Types Packs/Day [...] encounter Miscellaneous Notes * Telephone Encounter - Kimberly Osei RN - 03/28/2021 9:25 AM EST Cardiac rehab referral received on this patient from HF team. DX: HFrEF LM w/patient to call us regarding location preference of doing outpatient CR. documented in this encounter Plan of Treatment Upcoming Encounters Date Type Department Care Team (Late st Contact Info) Description 10/17/2023 10:30 AM EDT Appointment Non-[place] [address] [place] [address] 10/17/2023 11:40 AM EDT Office Visit Cardiology at [address] [address] [place] [address] 11/15/2023 10:00 AM EDT Hospital Encounter Non-[place] [address] Arrived 11/21/2023 1:40 PM EDT Office Visit Cardiology at [address] [address] Lea Hodges MD [facility] [place] [address] documented as of this encounter Goals Goal Patient Goal Type Associated Problems Recent Progress Patient-Stated? Author Home Medication Compliance and Understanding Patient Facing Action Plan Yahir Ball, [facility] Note: To live and see improvement in her heart function and ability to have good quality of life documented as of this encounter Visit Diagnoses Not on filedocumented in this encounter Care Teams Assortment Planner Relationship Specialty Start Date End Date Angela Cotto MD [address] [place] [address] PCP - General Family Medicine 02/20/21 07/30/21 documented as of this encounter
--- OUTSIDE RECORDS SUMMARY | 2023-10-16 01:25 | XMS_ITS | Encounter Summary ---
Author Organization [facility] Address [facility] [place] [address] Care Team Providers Care Rail Car Mechanic Name Role Phone Angela Cotto MD Primary Care Provider [phone] Encounter Details Date Type Department Care Team (Late st Contact Info) Description 04/03/2021 Notes Only Care Management [facility] [place] [address] Jeromy Ellsworth Social History Tobacco Use Types [...] encounter Progress Notes * Jeromy Ellsworth - 04/03/2021 2:20 PM EST I sent a letter and the application for assistance with Entresto to the patient for them to complete, [...] 10:30 AM EDT Appointment [place] [address] [place] [address] 10/17/2023 11:40 AM EDT Office Visit Cardiology at [address] [address] [place] [address] 11/15/2023 10:00 AM EDT Hospital Encounter [place] [address] Arrived 11/21/2023 1:40 PM EDT Office Visit Cardiology at [address] [address] Lea Hodges MD [facility] [place] [address] documented as of this encounter Goals Goal Patient Goal Type Associated Problems Recent Progress Patient-Stated? Author [facility] Medication Compliance and Understanding Patient Facing Action Plan Yahir Ball, [facility] Note: To live and see improvement in her heart function and ability to have good quality of life documented as of this encounter Visit Diagnoses Not on filedocumented in this encounter Care Teams Rail Car Mechanic Relationship Specialty Start Date End Date Angela Cotto MD [address] [place] [address] PCP - General Family Medicine 02/20/21 07/30/21 documented as of this encounter
--- OUTSIDE RECORDS SUMMARY | 2023-10-16 01:25 | XMS_ITS | Encounter Summary ---
Author Organization [facility] [place] [address] Care Team Providers Care Commissary Officer Name Role Phone Angela Cotto MD Primary Care Provider [phone] Reason for Visit * Reason Onset Date Comments Follow-up 03/28/2021 Entresto 24-26 m g 1/2 tab bid, start Encounter Details Date Type Department Care Team (Late st Contact Info) Description 03/28/2021 Telephone Cardiology at [address] [phone] Chela Berry, RN Follow-up (Entresto 24-26 mg 1/2 tab bid, start) Social History Tobacco Use Types Packs/Day [...] Telephone Encounter - Chela Berry RN - 03/28/2021 3:02 PM EST New Entresto Start Entresto 24-26 mg 1/2 tab po bid. Starting dose on 04/06/21 (med mailed to pt today, should arrive tomorrow from the Specialty pharmacy). Teaching done on 03/28/21 Pt to monitor weights, BP/HR daily. Call [...] swelling inhis/her lower extremities and/or abdomen. Stop Costa (name & dose) NA on NA (48 hours prior to Entresto start). Stop Arb (name & dose) Losartan 25 mg daily the day before starting Entresto (04/05/21) BMP done 1-2 weeks after start on 04/05/21 Getting labs done at : PCP office [facility]. Resulted at [facility]. Patient/nursing to call in 1-2 weeks to see how he/she is tolerating the medication and to get the BMP results. Consult with the provider to see if the pt should stay on the same dose or adjust up ordown. Will he/she need another BMP if so when? documented in this encounter Plan of Treatment Upcoming Encounters Date Type Department Care Team (Late st Contact Info) Description 10/17/2023 10:30 AM EDT Appointment [place] [address] [place] [address] 10/17/2023 11:40 AM EDT Office Visit Cardiology at [address] [address] [place] [address] 11/15/2023 10:00 AM EDT Hospital Encounter Non-[place] [address] Arrived 11/21/2023 1:40 PM EDT Office Visit Cardiology at [address] [address] Lea Hodges MD [facility] [place] [address] documented as of this encounter Goals Goal Patient Goal Type Associated Problems Recent Progress Patient-Stated? Author [facility] Medication Compliance and Understanding Patient Facing Action Plan No Yahir Mcallister, [facility] Note: To live and see improvement in her heart function and ability to have good quality of life documented as of this encounter Visit Diagnoses Not on filedocumented in this encounter Care Teams Commissary Officer Relationship Specialty Start Date End Date Angela Cotto MD [address] [place] [address] PCP - General Family Medicine 02/20/21 07/30/21 documented as of this encounter
--- OUTSIDE RECORDS SUMMARY | 2023-10-16 01:25 | XMS_ITS | Encounter Summary ---
Author Organization [facility] [place] [address] Care Team Providers Care Contract Attorney Name Role Phone Angela Cotto MD Primary Care Provider [phone] Reason for Visit * Reason Comments Medication Management Medication Refill Encounter Details Date Type Department Care Team (Late st Contact Info) Description 04/20/2021 Specialty [place] [address] Deepti Guzman RPH Social History Tobacco Use [...] Progress Notes * Deepti Guzman RPH - 04/20/2021 1:32 PM EST Specialty Pharmacy Consultation; Deepti Guzman RPH Comprehensive Medication Management (CMM): Specialty Consult, Opt Out Stacy Esparza Diagnosis: HFrEF Therapy Start Date: 03/30/21 Contact in person or via telephone: telephone Ms. Stacy Esparza is a 65 y.o. (1955) female who was contacted in regard to specialty medication. Spoke with patient regarding Entresto. A review of the medication therapy was performed. The medication was refilled as scheduled, and all medication related questions and concerns were addressed.The specialty pharmacy staff will follow up with the patient 5-7 days prior to next refill. Is the patient willing to proceed with the Clinical Assessment? No Summary and Recommendations: Stacy had no questions about the Entresto today. Reports no changes in other medications, allergies, or medical conditions. Denies any side effects. Completed lab work 1 week after starting Entresto with no significant change in renal function or potassium. Discussed MAP application, hopeful she will be approved before next refill. Economic Assessment: Patient is agreeable to medication copay: Yes Copay Amount: $47 Day Supply: 30 Date Needed: 04/28 Therapy Assessment: Appropriate Therapy: Yes Current Medication Dosing/Route/Frequency: Entresto 24/26 mg tablet -Take 1/2 tablet by mouth twicea day Additional equipment/supplies required: no Care Plan Reviewed and Approved by Pharmacist : Yes Problem List: Patient Active Problem List Diagnosis Code ??? 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 Alcohol abuse, unspecified F10.10 ??? Hyperpotassemia E87.5 ??? Cardiogenic shock R57.0 ??? Unspecified hypothyroidism E03.9 ??? CAD (coronary artery disease) I25.10 Medications Reviewed: Yes Medications reconciled: No Allergies Reviewed:Yes Allergies reconciled: No Pharmacist follow-up needed: No Informed patient of specialty pharmacy services: Yes Welcome Packet and Rights and Responsibilities: Patient provided welcome packet/rights and responsibilities: Yes Date Confirmed: 03/26/21 Confirmation: Signature in [employer] -Patient is aware a licensed pharmacist is available 24 hours a day, 7 days a week to discuss medication-related questions or concerns: Yes -Patient verbalizes understanding of the common side effect profile of their medication. The patient is able to call 911 or seek urgent care if signs/symptoms of allergy or harmful adverse reactions occur: Yes Patient understands no changes to current drug regimen were made at the appointment and that the pharmacist is providing recommendations (summary located at top of note) for provider review and follow up. Deepti Guzman RPH 04/20/21 1:33 PM documented in this encounter Plan of Treatment Upcoming Encounters Date Type Department Care Team (Late st Contact Info) Description 10/17/2023 10:30 AM EDT Appointment [place] [phone] [place] [address] 10/17/2023 11:40 AM EDT Office Visit Cardiology at [address] [phone] [place] [address] 11/15/2023 10:00 AM EDT Hospital Encounter [place] [address] Arrived 11/21/2023 1:40 PM EDT Office Visit Cardiology at [address] [phone] Lea Hodges MD [facility] [place] [address] documented as of this encounter Goals Goal [...] on filedocumented in this encounter Care Teams Contract Attorney Relationship Specialty Start Date End Date Angela Cotto MD [address] [place] [address] PCP - General Family Medicine 02/20/21 07/30/21 documented as of this encounter
--- OUTSIDE RECORDS SUMMARY | 2023-10-16 01:25 | XMS_ITS | Encounter Summary ---
Author Organization [facility] Address [facility] [place] [address] Care Team Providers Care Sorter Laundry Articles Name Role Phone Angela Cotto MD Primary Care Provider [phone] Encounter Details Date Type Department Care Team (Late st Contact Info) Description 04/18/2021 [place] [address] Jeromy Ellsworth Social History Tobacco Use Types [...] encounter Progress Notes * Jeromy Ellsworth - 04/18/2021 3:58 PM EST I sent the application for assistance with Entresto to Alisa Borrero MD for their signature and prescription. I will follow through with the remainder of the application once everything is returned to me. documented in this encounter Plan of Treatment Upcoming Encounters Date Type Department Care Team (Late st Contact Info) Description 10/17/2023 10:30 AM EDT Appointment Non-Invasive Cardiology [place] [address] [place] [address] 10/17/2023 11:40 AM EDT Office Visit Cardiology at [address] [address] [place] [address] 11/15/2023 10:00 AM EDT Hospital Encounter Non-[place] [phone] Arrived 11/21/2023 1:40 PM EDT Office Visit Cardiology at [address] [phone] Lea Hodges MD [facility] [place] [address] documented as of this encounter Goals Goal Patient Goal Type Associated Problems Recent Progress Patient-Stated? Author [facility] Home Medication Compliance and Understanding Patient Facing Action Plan Yahir Ball, [facility] Note: To live and see improvement in her heart function and ability to have good quality of life documented as of this encounter Visit Diagnoses Not on filedocumented in this encounter Care Teams Sorter Laundry Articles Relationship Specialty Start Date End Date Angela Cotto MD [address] [place] [address] PCP - General Family Medicine 02/20/21 07/30/21 documented as of this encounter
--- OUTSIDE RECORDS SUMMARY | 2023-10-16 01:26 | XMS_ITS | Encounter Summary ---
Author Organization [facility] [place] [address] Care Team Providers Care Laborer Mine Name Role Phone Unavailable Primary Care Provider Unavailabl e Encounter Details Date Type Department Care Team (Late st Contact Info) Description 02/17/2021 Orders [place] [phone] Isaiah Guevara PA [facility] [place] [address] Screening for cardiovascular condition; Cardiomyopathy, unspecified type; HFrEF (heart failure with reduced ejection fraction) Social History Tobacco Use Types Packs/Day Years Used Date Smoking Tobacco: Every Day Cigarettes Smokeless Tobacco: Never Alcohol Use Standard Drinks/Week [...] 10:30 AM EDT Appointment Non[place] [phone] Lea Jay MD [facility] [place] [address] 10/17/2023 11:40 AM EDT Office Visit Cardiology at [address] [address] [place] [address] 11/15/2023 10:00 AM EDT Hospital Encounter Non-[place] [phone] Arrived 11/21/2023 1:40 PM EDT Office Visit Cardiology at [address] [address] Lea Hodges MD [facility] [place] [address] documented as of this encounter Visit Diagnoses Diagnosis Screening for cardiovascular condition Screening for other and unspecified cardiovascular conditions Cardiomyopathy, unspecified type HFrEF (heart failure with reduced ejection fraction) documented in this encounter
--- OUTSIDE RECORDS SUMMARY | 2023-10-16 01:26 | XMS_ITS | Encounter Summary ---
Author Organization [facility] [place] [address] Care Team Providers Care Exchange Underwriting Consultant Name Role Phone Angela Cotto MD Primary Care Provider [phone] Reason for Visit * Auth/Cert Specialty Diagnoses / Procedures Referred By Shyam t Referred To Contact Diagnoses CAD (coronary artery disease) Screening for cardiovascular condition [Z13.6]Cardiomyopathy, unspecified type [I42.9] Procedures PRG CATH PLMT LEFT HEART CATH & ARTS W/INJ & ANGIO IMG S&I CARDIAC CATHETERIZATION CORONARY ANGIOGRAPHY; W LHC,POSSIBLE PCI Referral ID Status Reason Start Date Expiration Date Visits Re quested Visits Authorized [id number] 1 1 Encounter Details Date Type Department Care Team (Late st Contact Info) Description 02/21/2021 7:30 AM EST Laboratory Appointment Lab [address] [place] [phone] Social History Tobacco Use Types Packs/Day Years Used Date Smoking Tobacco: Every Day Cigarettes 0.3 50 Smokeless Tobacco: Never Alcohol Use Standard Drinks/Week [...] 10:30 AM EDT Appointment Non-Invasive [place] [phone] [place] [address] 10/17/2023 11:40 AM EDT Office Visit Cardiology at [address] [address] [place] [address] 11/15/2023 10:00 AM EDT Hospital Encounter Non-Invasive [place] [phone] Arrived 11/21/2023 1:40 PM EDT Office Visit Cardiology at [address] [phone] Lea Hodges MD [facility] [address] documented as of this encounter Procedures Procedure Name Priority Date/Time Associated Diagnosis Comments HC VENIPUNCTURE STAT 02/21/2021 7:53 AM EST HEMOGRAM STAT 02/21/2021 7:53 AM EST DIFFERENTIAL, AUTOMATED STAT 02/21/2021 7:53 AM EST HC CBC,PLT & AUTO DIFF STAT 02/21/2021 7:53 AM EST documented in this encounter Results * (ABNORMAL) Differential, Automated (02/21/2021 7:53 AM EST) Neutrophils % 62.2 % [facility] Neutr Abs (ANC) 6.64(H) 1.70 - 6.10 x10(3)/mc L [facility] Lymphocytes % 28.8 % [facility] Lymphocytes Abs 3.1 0.9 - 3.2 x10(3)/mc L [facility] Monocytes % 7.2 % [facility] Monocyte Abs 0.8 0.3 - 0.9 x10(3)/[facility] Eosinophils % 0.9 % [facility] Eosinophils Abs 0.1 0.0 - 0.4 x10(3)/[facility] Basophils % 0.6 % [facility] Basophils Abs 0.1 0.0 - 0.1 x10(3)/[facility] Immature Gran % 0.30 % [facility] Comment: Immature granulocytes(IG's)percentage and absolute count will include metamyelocytes, myelocytes, and promyelocytes. Blood smears from CBCs yielding IG's will be scanned manually for concordance. If this scan disagrees with the automated IG or if promyelocytes are noted, a manual differential will be performed. Nelida Gran Abs 0.03 0.00 - 0.04 x10(3)/[facility] Blood 02/21/2021 7:53 AM EST 02/21/2021 7:56 AM EST Narrative Resulting Agency Comment Spec In Lab Isaiah BENTLEY HEMATOLOGY ORDERABLE S [facility] [place] [address] * (ABNORMAL) Hemogram (02/21/2021 7:53 AM EST) WBC 10.7(H) 4.0 - 9.5 x10(3)/[facility] RBC 4.78 4.00 - 5.21 x10(6)/[facility] Hemoglobin 14.7 11.7 - 15.5 g/dL [facility] Hematocrit 43.9 35.7 - 45.8 % [facility] MCV 91.8 82.6 - 94.4 fL [facility] MCH 30.8 27.1 - 32.0 pg [facility] MCHC 33.5 31.7 - 35.0 g/dL [facility] Platelets 278 145 - 357 x10(3)/[facility] RDWSD 48.1(H) 37.0 - 46.0 [facility] RDWCV 14.6(H) 11.5 - 14.1 % [facility] MPV 9.1 7.6 - 12.9 fL [facility] nRBC % Auto 0.0 % [facility] nRBC Abs Auto 0.000 0.000 - 0.000 x10(3)/[facility] Blood 02/21/2021 7:53 AM EST 02/21/2021 7:56 AM EST Narrative Resulting Agency Comment Spec In Lab Isaiah BENTLEY HEMATOLOGY ORDERABLE S Performing Organization Address City/State/[facility] Co de Phone Number [facility] [place] [address] * (ABNORMAL) BMP w/fasting Glucose (02/21/2021 7:53 AM EST) Glucose Fasting 119(H) 65 - 99 mg/dL [facility] Comment: ?Fasting* Glucose Interpretive Criteria Normal ?65-99 mg/dL Impaired Fasting glucose ?100-125 mg/dL Consistent with Diabetes Mellitus ? >or= 126 mg/dL *Fasting is defined as no caloric intake for at least 8 hours In the absence of unequivocal hyperglycemia a plasma glucose value of >or= 126 mg/dL should be repeated on a subsequent day. Diagnosis and Classification of Diabetes Mellitus, Position Statement from the [place] [employer]. ??Diabetes Care, Volume 33, Supplement 1, Mar 2009 BUN 23(H) 8 - 18 mg/dL [facility] Creatinine 1.08 0.70 - 1.20 mg/dL [facility] Sodium 143 135 - 145 mmol/L [facility] Potassium 4.6 3.5 - 5.0 mmol/L [facility] Comment: Please note: ??Patients with WBC >100,000 may have falsely elevated Potassium levels. ??For accurate Potassium quantification in these patients send serum separator tube (gold top) for subsequent determinations. ??Contact the Clinical Chemistry Laboratory if there are any questions. Chloride 103 98 - 107 mmol/L [facility] CO2 28 22 - 31 mmol/L [facility] Anion Gap 12 5 - 15 mmol/L [facility] Calcium 9.8 8.5 - 10.5 mg/dL [facility] Estimated GFR 53(L) >=60 mL/min/1. 73 m?? [facility] Comment: This patient? s estimated glomerular filtration rate (eGFR) is between 53 mL/min/1.73 m2 (patients with less muscle mass) and 62 mL/min/1.73 m2 (patients with more muscle mass) [...] and symptoms in addition to eGFR. Blood 02/21/2021 7:53 AM EST 02/21/2021 7:56 AM EST Narrative Resulting Agency Comment Spec In Lab Lea Macdonald MD CHEMISTRY ORDERABLE S [facility] [place] [address] documented in this encounter Visit Diagnoses Not on filedocumented in this encounter Care Teams Exchange Underwriting Consultant Relationship Specialty Start Date End Date Angela Cotto MD [address] [place] [address] PCP - General Family Medicine 02/20/21 07/30/21 documented as of this encounter
--- OUTSIDE RECORDS SUMMARY | 2023-10-16 01:26 | XMS_ITS | Encounter Summary ---
Author Organization [facility] [place] [address] Care Team Providers Care Highway Landscape Architect Name Role Phone Unavailable Primary Care Provider Unavailabl e Encounter Details Date Type Department Care Team (Late st Contact Info) Description 05/07/2012 Orders Only Cardiology at [address] [phone] Raoul Martin MD [facility] [place] [address] Social History Tobacco Use Types Packs/Day Years Used Date Smoking Tobacco: Former Cigarettes 0 05/06/2002 - 05/06/2012 Smokeless Tobacco: Never Alcohol Use Standard Drinks/Week [...] AM EDT Appointment Non-[place] [address] Lea Jay MD [facility] CARDIOLOGY [place], [place] [phone] 10/17/2023 11:40 AM EDT Office Visit Cardiology at [address] [address] Lea Jay MD [facility] [address] 11/15/2023 10:00 AM EDT Hospital Encounter Non-[place] [phone] Arrived 11/21/2023 1:40 PM EDT Office Visit Cardiology at [address] [address] Lea Hodges MD [facility] [place] [address] documented as of this encounter Visit Diagnoses Not on filedocumented in this encounter
--- OUTSIDE RECORDS SUMMARY | 2023-10-16 01:26 | XMS_ITS | Encounter Summary ---
Author Organization [facility] [place] [address] Care Team Providers Care Adjunct Political Science Instructor Name Role Phone Angela Cotto MD Primary Care Provider [phone] Reason for Visit * Auth/Cert Specialty Diagnoses / Procedures Referred By Shyam t Referred To Contact Diagnoses CAD (coronary artery disease) Screening for cardiovascular condition [Z13.6]Cardiomyopathy, unspecified type [I42.9] Procedures PRG CATH PLMT LEFT HEART CATH & ARTS W/INJ & ANGIO IMG S&I CARDIAC CATHETERIZATION CORONARY ANGIOGRAPHY; W LHC,POSSIBLE PCI Referral ID Status Reason Start Date Expiration Date Visits Re quested Visits Authorized [id number] 1 1 Encounter Details Date Type Department Care Team (Latest Contact Info) Description 02/21/2021 8:10 AM EST - 02/26/2021 11:31 AM EST Hospital Encounter [place] [address] Lea Hodges MD [facility] [place] [id number] Alisa De Leon MD [facility] [place] [address] Kaleb Norwood MD [facility] [place] [address] Screening for cardiovascular condition; Cardiomyopathy, unspecified type; [...] Sign Reading Time Taken Comments Blood Pressure 108/62 02/26/2021 8:48 AM EST Pulse 87 02/26/2021 8:48 AM EST Temperature 36.5 ??C (97.7 ??F) 02/26/2021 8:48 AM ES T Respiratory Rate 18 02/26/2021 8:48 AM EST Oxygen Saturation 95% 02/26/2021 8:48 AM EST Inhaled Oxygen Concentration - - Weight 68.3 kg (150 lb 9.2 oz) 02/26/2021 5:15 A M EST Height 162.6 cm (5' 4) 02/21/2021 9:54 AM EST Body Mass Index 25.85 02/21/2021 9:54 AM EST documented in this encounter Discharge Summaries * Kaleb Norwood MD - 02/26/2021 11:31 AM EST Patient Name: Stacy Esparza Patient Age: 65 y.o. Language: German Race: White Ethnicity: Not nor Admit date: 02/21/2021 Discharge date and time: 02/26/2021 Attending Physician: Kaleb Norwood MD Discharge Physician: Kaleb Norwood MD Follow-up Recommendations for Providers: 1) Heart failure with reduced EF -Stacy was found to have new dilated cardiomyopathy with EF 15 to 20%. She was aggressively diuresed and guideline directed medical therapy was initiated, including beta-myrna, ARB, and MRA. She is scheduled to follow-up in heart failure clinic in 2 weeks for further evaluation of her dilated cardiomyopathy and titration of her GDMT, including Entresto and SGLT2i (insurance pending). 2) Coronary artery disease -left heart cath showed RESPIRATORY CARE INSTRUCTOR of RCA distal to prior HUGO, with good collateral flow to RCA territory. Nonobstructive left-sided coronary disease. Please continue daily aspirin and atorvastatin. 3) Hypothyroidism - given reported palpitations preceding her acute exacerbation of heart failure, endocrinology was curbsided, who recommended discontinuing liothyronine (Cytomel). This can worsen heart failure due to spikes in active thyroid hormone. Levothyroxine was continued at her previous home dose of 50 mcg/day. Please repeat TSH in 4 to 6 weeks and titrate levothyroxine as indicated. PCP Contact Information: Angela Cotto MD [address] / [facility] [address] Pending Studies and Lab Data: none No current labs Discharge Diagnoses (Hospital Problems) and Secondary Diagnoses (Chronic Problems): Active Hospital Problems Diagnosis ??? CAD (coronary artery disease) Resolved Hospital Problems No resolved problems to display. Active Non-Hospital Problems Diagnosis ??? Other primary cardiomyopathies ??? Alcohol abuse, unspecified ??? Hyperpotassemia ??? Cardiogenic shock ??? Unspecified hypothyroidism History of Presentation (per 02/21/2021 Admission H&P): Stacy Esparza is 65F with history of CAD (stents to the RCA in 2012) and ischemic cardiomyopathy s/p improvement in EF to 52% who presents with worsening shortness of breath since last week without chest pain. Has had persistent POZO and palpitations. Recent TTE showing LVEF 25 to 30% with a severely dilated LV with diffuse hypokinesis and apical akinesis. ?? [facility] today as outpatient procedure showed in-stent RESPIRATORY CARE INSTRUCTOR of RCA and nonocclusive left coronary disease, without indication for intervention. During the procedure she received approximately 600cc fluid and developed acute hypoxic respiratory failure requiring rescue bipap. She was given 40mg IV lasix plus 80mg IV lasix, with continued respiratory distress on bipap, and was admitted to the CVCC for further diuresis and management. ?? She reports 10 days of progressive POZO with minimal exertion, which is an acute worsening from her baseline. She presented to her outpatient child protection specialist ([facility]), TTE showed reduced EF of 20-25% (from 53% in 2013) with diffuse hypokinesis and akinesis of the apex, as well assevere functional MR. She was started on losartan 25mg daily and her metoprolol dose was doubled to 50 BID. ?? She reports associated palpitations. She denies chest pain, denies lower extremity edema. ?? History otherwise notable for ongoing smoking ?? She denies any recent infectious symptoms including cough, URI symptoms. Also denies fever/chills/ns. Also denies GI or urinary symptoms. ?? Current meds as follows (per outpt cards note): -Tylenol 325 as needed -1-2 aleve per day for back -ASA 81 -Atorvastatin 80 -Vitamin D 50,000 units weekly -Co-Q10 100 mg -not usually -Furosemide 80 mg every morning -Levothyroxine unknown dose (150mcg per care everywhere) -Metoprolol succinate 50 mg twice daily -metformin 1000 bid -allopurinol only when has symptoms (last 9 months ago) ?? Today did not take any meds besides metoprolol succinate 50mg, held all other meds as instructed. Hospital Course: Stacy Esparza was admitted to the Cardiology service on 02/21/2021. The following issues were addressed and she was discharged on 02/26/2021. #HFrEF 15-20% #Severe dilated cardiomyopathy (nonischemic) Patient presented for planned cardiac catheterization in the setting of 2 weeks progressive POZO with echo finding of new severely dilated cardiomyopathy progression of her HFrEF. During procedure shedeveloped flash pulmonary edema in the setting of acute hypertension to the 160s requiring rescue BiPAP, which resolved with nitro drip and aggressive diuresis. The following morning she was transitioned out of the ICU and diuresis was continued, with gradual improvement of her respiratory status. She remained hemodynamically stable and was eventually weaned off supplemental oxygen, though with desats with ambulation she was discharged on supplemental oxygen. Given severe global hypokinesis and severe LV dilation in the setting of nonocclusive left sided coronary disease, nonischemic cardiomyopathy work-up was initiated. No arrhythmia identified on telemetry. TSH and free T4 within normal limits, lyme and HIV serology negative. Cardiac MRI and further genetic workup to be completed as outpatient. #Mild-moderate pericardial effusion Seen on TTE, was mild per read from [facility] 1 week ago. Unclear etiology, though most likely her chronic severe HFrEF. No indication for drainage. - no tamponade physiology ?? #ASCVD #CAD s/p RCA stent in 2012 - cath with non-occlusive CAD - [facility] showed RESPIRATORY CARE INSTRUCTOR of RCA - aspirin 81 daily - atorvastatin 80 mg daily ? #DM2 Her home Metformin was held and she only required 2 units of correctional insulin while inpatient. Metformin was resumed on discharge. ?? #Hypothyroid -continue home L-thyroxine (50mcg per daughter after checking with PCP office) -liothyronine was stopped per endocrinology curbside, as this can cause unsafe fluctuations in active thyroid hormone and can worsen heart failure. -TSH and T4 within normal limits, T3 unreliable in setting of acute illness -Follow up outpatient for check in 4-6 weeks and titrate as outpatient ?? #Gout -ntd Procedures: Operations: Procedure(s): CARDIAC CATHETERIZATION CORONARY ANGIOGRAPHY; W C,POSSIBLE PCI Important Studies and Lab Data: Recent Labs 02/26/21 0421 02/25/21 0613 02/24/21 0339 WBC 8.4 8.0 8.8 HGB 13.7 14.1 13.6 HCT 41.2 43.3 42.0 PLATELET 254 261 250 Recent Labs 02/26/21 0421 02/25/21 0613 02/25/21 0010 02/21/21 2205 02/21/21 1605 NA 140 139 138 < > 140 K 4.3 4.1 4.2 < > 3.8 CL 99 98 99 < > 102 CO2 30 29 30 < > 22 BUN 26* 21* 23* < > 21* CREATININE 1.05 0.89 0.94 < > 0.99 MAGNESIUM 0.98 1.11* 0.84 < > 0.68* PHOS -- -- -- -- 5.1* < > = values in this interval not displayed. Recent Labs 02/22/21 1050 BILITOT 0.6 BILIDIR 0.2 AST 26 ALT 52* ALKPHOS 74 Recent Labs 02/21/21 1605 INR 1.2 PTT 51* No results for input(s): HA1C in the last 168 hours. Recent Labs 02/21/21 1655 TSH 3.99 No results for input(s): HDL, LDLCHOL, CHOLHDL, TRIG, CHLPL in the last 168 hours. Microbiology Results (Last 30 days) Procedure Component Value Units Date/Time COVID-19 PCR [[id number]] Collected: 02/22/2139 Lab Status: Final result Specimen: Nasopharyngeal Swab Updated: 02/22/21429 SARS-CoV-2 RNA PCR Not Detected Comment: This result should be interpreted in combination with the clinical observations, patient history and epidemiological information. For testing of asymptomatic individuals, assay performance characteristics and clinical utility have not been evaluated. Testing for SARS-CoV-2 (Severe acute respiratory syndrome coronavirus 2, formerly known as 2019 novel coronavirus or 2019-nCoV) to aid in the diagnosis of COVID-19 is performed using the Simplexa COVID-19 Direct Assay by [employer] as authorized by the FDA issued Emergency Use Authorization (EUA). This assay is intended for In-vitro Diagnostic (IVD) use with nasopharyngeal swabs collected from individuals meeting the CDC criteria for testing. The assay is performed based on the instructions for use and additional guidance provided by the FDA. Testing is performed in the Microbiology Laboratory within the Department of Pathology and Laboratory Medicine at [facility], certified under the Clinical Laboratory Improvement Amendments of 1988 (CLIA), 42 U.S.C. section 263a, to perform high complexity tests. Assay performance has been verified according to clinical laboratory regulatory requirements. Test results are provided above. A result of Not Detected indicates that the viral RNA target is not present but does not preclude SARS-CoV-2 infection. False negative results may occur if a specimen is improperly collected, transported or handled; if amplification inhibitors are present; or if inadequate numbers of viral particles are present in the specimen. A result of Detected suggests a current or recent infection and the patient is presumed to be infected. Positive and negative predictive values for this test are highly dependent on disease prevalence. A result of Invalid indicates the inability to conclusively determine the presence or absence of SARS-CoV-2 RNA in the sample which can be due to a variety of factors. Recollection is recommended in the case of an invalid result. CDC COVID-19 criteria for testing on human specimens and clinical management guidance information are available at the CDC Coronavirus Disease 2019 (COVID-19) webpage under Information for Healthcare Professionals (https://www.cdc.gov/coronavirus/2019-ncov/hcp/index.html). Additional information about this and other EUA tests can be found in provider and patient fact sheets at the following FDA website: https://www.fda.gov/medical-devices/zxhytfpbahd-dxqgyir-2017-oqnel-86-yglqshche- oby-frjosbnmewpkcx-dmaqtju-devices/szbgb-xwlimagitcu-ifwd SARS-CoV-2 Source YARD CLERK Swab Imaging: Results for orders placed or performed during the hospital encounter of 02/21/21 XR Chest One View (Exam End: 02/21/2021 5:00 PM) Impression Severely enlarged cardiac silhouette; suspect combination of dilated cardiomyopathy and pericardial effusion. Thank you for letting us participate in the care of this patient. If you are a health care provider and have any questions regarding this report, please contact the number below. For patients who have questions please contact the health pet care technician that requested your imaging first. Chest One View (Exam End: 02/25/2021 8:20 AM) Impression Bibasilar opacities, suspect subsegmental atelectases. Stable cardiomegaly. Thank you for letting us participate in the care of this patient. If you are a health care provider and have any questions regarding this report, please contact the number below. For patients who have questions please contact the health pet care technician that requested your imaging first. Discharge Conditions/Prognosis: Upon discharge the patientis hemodynamically stable, afebrile, fully ambulatory with requiring supplemental oxygen, holding down food/drink, and pain free. Vital Signs: Last value Range last 24 hrs Temperature Temp: 36.5 ??C (97.7 ??F) Temp: [36.4 ??C (97.6 ??F)-36.9 ??C (98.4 ??F)] Heart Rate Heart Rate: 87 Heart Rate: [81-93] Blood Pressure BP: 108/62 BP: (96-120)/(40-62) Respiratory Rate Resp: 18 Resp: [16-19] SpO2 SpO2: 95 % SpO2: [83 %-96 %] Discharge to: home without services Discharge Medications: Your Medications New Medications Dose Details atorvastatin 80 mg Tab Commonly known as: Lipitor Take 1 tablet by mouth every evening. 80 mg Quantity: 90 tablet Refills: 3 famotidine 20 mg Tab Commonly known as: Pepcid Take 1 tablet by mouth 2 times daily. 20 mg Quantity: 30 tablet Refills: 12 magnesium oxide 400 mg (241.3 mg magnesium) Tab Commonly known as: Mag-Ox Take 1 tablet by mouth 2 times daily. 400 mg Quantity: 30 tablet Refills: 12 metoprolol succinate XL 100 mg Tablet sr Commonly known as: Toprol-XL Take 1 tablet by mouth daily. Start taking on: February 27, 2021 100 mg Quantity: 30 tablet Refills: 12 nicotine polacrilex 2 mg Gum Commonly known as: Nicorette Take 1 each by mouth every 2 hours as needed for Smoking cessation. 2 mg Quantity: 50 each Refills: 3 spironolactone 25 mg Tab Commonly known as: Aldactone Take 0.5 tablets by mouth daily. Start taking on: February 27, 2021 12.5 mg Quantity: 90 tablet Refills: 3 torsemide 20 mg Tab Commonly known as: Demadex Take 2 tablets by mouth every morning. 40 mg Quantity: 90 tablet Refills: 3 Continued medications with new dosing Dose Details levothyroxine 50 mcg Tab Commonly known as: Synthroid Take 1 tablet by mouth daily. Start taking on: February 27, 2021 What changed: how much to take 50 mcg Quantity: 90 tablet Refills: 3 losartan 25 mg Tab Commonly known as: Cozaar Take 1 tablet by mouth daily. Start taking on: February 27, 2021 What changed: additional instructions 25 mg Quantity: 90 tablet Refills: 3 Continued medications, unchanged Dose Details allopurinoL 100 mg Tab Commonly known as: Zyloprim Take 100 mg by mouth as needed (for Gout attacks). 100 mg Refills: 0 aspirin EC 81 mg Tbec Take 81 mg by mouth daily. 81 mg Refills: 0 ergocalciferoL (vitamin D2) 50,000 unit Cap Commonly known as: vitamin D2 Take 50,000 Units by mouth once a week. 50,000 Units Refills: 0 metFORMIN 1,000 mg Tab Commonly known as: GLUCOPHAGE Take 1,000 mg by mouth 2 times daily (with meals). 1,000 mg Refills: 0 multivitamin Tab Commonly known as: THERAGRAN Take 1 tablet by mouth daily. 1 tablet Refills: 0 nitroGLYcerin 0.4 mg Subl Commonly known as: Nitrostat Place 1 tablet under the tongue daily as needed for Chest pain. 0.4 mg Quantity: 90 tablet Refills: 3 STOPPED Medications furosemide 40 mg Tab Commonly known as: Lasix furosemide 80 mg Tab Commonly known as: Lasix liothyronine 5 mcg Tab Commonly known as: Cytomel metoprolol tartrate 50 mg Tab Commonly known as: Lopressor simvastatin 20 mg Tab Commonly known as: Zocor UNABLE TO FIND Updated Allergies/ADRs: Allergies Allergen Reactions ??? Lisinopril Other (See Comments) cough Instructions Given to Patient at Discharge: Patient Instructions Patient Instructions on Discharge to Home Why were you hospitalized? You were hospitalized for congestive heart failure. Before coming in you had been experiencing severe shortness of breath with activity and your child protection specialist had found that your heart failure had been worsening and your heart was severely enlarged, which has likely been getting worse over a long time. You initially came in for a cardiac catheterization to look at your heart arteries. This showed a blockage of one of your coronary arteries but the other arteries looked pretty normal. Therefore, we could tell that your worsening heart failure was not due to any new blockages in your arteries. We started some medicines that will help your heart recover over time. We also gave your some intravenous diuretics, which helped get fluid off your lungs and help your breathing. It is very important to be seen in the special heart failure clinic to make sure your heart function is improving and that you are taking the right medicines. They will also talk about getting an MRI of your heart to see if there is something else going on that can be treated. We stopped one of your thyroid medicines (liothyronine) because it is not recommended in people with heart failure. We discussed this with the endocrinrology team. Your other thyroid medicine, levothyroxine, was continued at the previous dose. Your thyroid level should be checked in 4-6 weeks and and the levothyroxine should be adjusted as needed. What medications should you take? NEW Medications: Torsemide- This is a medication to help remove excess fluid and should be taken daily. This replaces your previously prescribed furosemide. Spironolactone- This is a medication that will help lower your blood pressure and help your heart recover over time. It can also help with removing excess fluid from your body. Please take this everyday. Magnesium oxide- This is a magnesium supplement that was started because you had low magnesium levels while you were in the hospital, which can be caused by the diuretics you were given. Please take this twice per day. It is completely safe to take this even if your magnesium levels are normal, butif you are having side effects such as diarrhea, you could discuss stopping this with your primary care provider. ADJUSTED Medications: Metoprolol - this is a long-acting medication to reduce your heart rate and help your heart recoverover time. Please take this every day at new dose of 100mg daily. STOPPED Medications: Liothyronine- This is a thyroid medication. Do not take this medication any more. When should you call your doctor? - Chest pain, worsening shortness of breath, fatigue with usual exertion, or new rest/night time symptoms. - Weigh yourself daily and record; if you note an increase of more than 2-3 pounds in 2 days, or 5 pounds over a week, contact your health care provider. - If you become short of breath, cannot lie down to sleep, or have swelling in your legs/ankles or abdomen, contact your health care provider. - Call if you have reduced urination during the day or increased urination at night. - Call for signs of increased wound drainage, redness, swelling, or increased pain at the site of your cardiac cath. - Call if you develop a temp >100.5 Who do you call if you have questions or problems? If you have non-emergent questions between now and the time of your follow up appointments: During 8am-5pm Saturday through Saturday call [phone] to speak with a nurse in the cardiology clinic All other times call [phone] and ask to speak to the member of the legislative council construction job titles. What activities can you do, and what restrictions do you have? Activity level: - You may return to work in 1 week. Use common sense. Don't exhaust yourself. - No hunting, skiing, jogging, snow shoveling, snowmobiling, lawn mowing, swimming, golf or tennis until after your return appointment with your family doctor. - Do not ride motorcycles, tractors or horses until cleared by your doctor. Diet: - Heart healthy: low salt, low fat, low concentrated sweets. Remember to avoid added salt, canned foods, processed foods (ie hot dogs, sausage, cold meats), and foods naturally high in salt, such as potato chips or pizza. Driving: - Per your routine after [address] if you feel dizzy, light headed, or are taking narcotic medications (ie/ Oxycodone, Morphine, Dilaudid, etc). Shower/Bath: - You may shower 24 hours after cardiac catheterization. - You may not sit in water for 5 days (tub bath, hot tub or pool). Wound Care: - Cath site dressing may be removed in 24 hours. Site may be washed with soap/water. A dressing does not need to be reapplied unless irritation occurs with underclothes. If irritation occurs, apply clean band-aid daily. Exercise: - Exercise 5-7 days per week as tolerated with gradual increase to 30 minutes per day. Smoking cessation: - If you are currently a smoker, you are strongly urged to stop smoking! Smoking increases the severity and incidence of heart disease, and is a risk factor for cancer and emphysema. Your health careprovider can provide specific measures to assist you, including nicotine supplements, anti-anxiety meds, and support groups in your community. Who were my doctors while I was in the hospital? Kaleb Norwood MD - Attending Flyer Maker Shant Mustafa MD - Educational Administrator Shalom Mooney MD, Harry Aguilar DO - Resident Physicians When do I see my doctors next? Future Appointments Date Time Provider Department Center 03/09/2021 1:40 PM LAB, THREE L Lab 3L [facility] 03/09/2021 2:40 PM Mylene Carrero PA [facility] CARD 4A [facility] You will need to follow up with your PCP (Angela Cotto MD at [phone]) within 1 week of discharge - scheduled for 03/06 at 2pm. You will need to follow up with your Flyer Maker (Mylene Wagner with Dr. Alisa Reddy at [facility]) within 1 month of discharge - scheduled for 03/09/21 as above. For questions regarding issues relating to your hospitalization on the Cardiology Service, please contact your inpatient physician through the [facility] Powerhouse Operator [phone] and ask for pager #[phone]. Issues after hours and on weekends will be handled by the Cardiology staff on-call. General Instructions None Future Appointments and Orders Future Appointments and Orders Future Appointments Provider Department Dept Phone 03/09/2021 1:40 PM LAB, THREE L Lab [facility] Arrive at: Pharmacy Account Director Area 3L [phone] 03/09/2021 2:40 PM Mylene Carrero PA Cardiology at [facility] Arrive at: Pharmacy Account Director Area 4A [phone] Future Orders Complete By Expires HOME OXYGEN [EQ184 Custom] As directed Process Instructions: Check with vendor to see if additional forms need to be completed. You must submit a copy of the following documents with this Order: 1 - Official results of Pulse Oximetry at Rest and with Exercise that are less than 180 days old 2 - Official results of Nocturnal testing (if performed) 3 - Signed and dated [id number] evaluation documenting the need for Oxygen Scheduling Instructions: Comments: Stacy Esparza Order: Equipment Type: POC (Portable Oxygen Concentrator)/ Setting 1 L NC Diagnosis: hypoxia due to idiopathic dilated cardiomyopathy Duration of use: lifetime (i.e. Lifetime) Frequency of use:continuous (i.e. Continuous) PECOS enrolled: Yes/No Questions: Vendor Name/Contact information: [employer] Rate (LPM): 1 Route: Nasal Hours per day of useage: 24 # months service is needed (99= lifetime): 99 Portable needed: Yes SPO2 performed on Room Air?: SPO2 performed with Supplemental Oxygen?: Nocturnal testing performed?: Oxygen Conserving Device (OCD) needed?: HOME OXYGEN [EQ184 Custom] As directed Process Instructions: Check with vendor to see if additional forms need to be completed. You must submit a copy of the following documents with this Order: 1 - Official results of Pulse Oximetry at Rest and with Exercise that are less than 180 days old 2 - Official results of Nocturnal testing (if performed) 3 - Signed and dated ccrf-[id number] evaluation documenting the need for Oxygen Scheduling Instructions: Questions: Vendor Name/Contact information: [facility] Rate (LPM): 1 Route: Nasal Hours per day of useage: 24 # months service is needed (99= lifetime): 99 Portable needed: Yes SPO2 performed on Room Air?: Yes Resting Date (Room Air): 02/25/2021 Resting SPO2% (Room Air): 88 Exercise Date (Room Air): 02/25/2021 Exercise SPO2% (Room Air): 83 SPO2 performed with Supplemental Oxygen?: Yes Resting Date (Supplemental Oxygen): 02/25/2021 Resting SPO2% (Supplemental Oxygen): 97 Resting Rate - LPM (Supplemental Oxygen): 1 Exercise Date (Supplemental Oxygen): 02/25/2021 Exercise SPO2% (Supplemental Oxygen): 92 Exercise Rate - LPM (Supplemental Oxygen): 1 Nocturnal testing performed?: No Oxygen Conserving Device (OCD) needed?: No Inpatient Provider Contact Information: For questions regarding this document or issues relating to this hospitalization on the Medical Service, please contact your inpatient physician through the [facility] Power[employer] . Issues afterhours and on weekends will be handled by staff on-call. Discharge References/Attachments: Discharge References/Attachments None documented in this encounter Discharge Instructions * Patient Instructions* Shalom Light MD - 02/26/2021 9:33 AM EST Patient Instructions on Discharge to Home Why were you hospitalized? You were hospitalized for congestive heart failure. Before coming in you had been experiencing severe shortness of breath with activity and your child protection specialist had found that your heart failure had been worsening and your heart was severely enlarged, which has likely been getting worse over a long time. You initially came in for a cardiac catheterization to look at your heart arteries. This showed a blockage of one of your coronary arteries but the other arteries looked pretty normal. Therefore, we could tell that your worsening heart failure was not due to any new blockages in your arteries. We started some medicines that will help your heart recover over time. We also gave your some intravenous diuretics, which helped get fluid off your lungs and help your breathing. It is very important to be seen in the special heart failure clinic to make sure your heart function is improving and that you are taking the right medicines. They will also talk about getting an MRI of your heart to see if there is something else going on that can be treated. We stopped one of your thyroid medicines (liothyronine) because it is not recommended in people with heart failure. We discussed this with the endocrinrology team. Your other thyroid medicine, levothyroxine, was continued at the previous dose. Your thyroid level should be checked in 4-6 weeks and and the levothyroxine should be adjusted as needed. What medications should you take? NEW Medications: Torsemide- This is a medication to help remove excess fluid and should be taken daily. This replaces your previously prescribed furosemide. Spironolactone- This is a medication that will help lower your blood pressure and help your heart recover over time. It can also help with removing excess fluid from your body. Please take this everyday. Magnesium oxide- This is a magnesium supplement that was started because you had low magnesium levels while you were in the hospital, which can be caused by the diuretics you were given. Please take this twice per day. It is completely safe to take this even if your magnesium levels are normal, butif you are having side effects such as diarrhea, you could discuss stopping this with your primary care provider. ADJUSTED Medications: Metoprolol - this is a long-acting medication to reduce your heart rate and help your heart recoverover time. Please take this every day at new dose of 100mg daily. STOPPED Medications: Liothyronine- This is a thyroid medication. Do not take this medication any more. When should you call your doctor? - Chest pain, worsening shortness of breath, fatigue with usual exertion, or new rest/night time symptoms. - Weigh yourself daily and record; if you note an increase of more than 2-3 pounds in 2 days, or 5 pounds over a week, contact your health care provider. - If you become short of breath, cannot lie down to sleep, or have swelling in your legs/ankles or abdomen, contact your health care provider. - Call if you have reduced urination during the day or increased urination at night. - Call for signs of increased wound drainage, redness, swelling, or increased pain at the site of your cardiac cath. - Call if you develop a temp >100.5 Who do you call if you have questions or problems? If you have non-emergent questions between now and the time of your follow up appointments: During 8am-5pm Saturday through Saturday call [phone] to speak with a nurse in the cardiology clinic All other times call [phone] and ask to speak to the member of the legislative council construction job titles. What activities can you do, and what restrictions do you have? Activity level: - You may return to work in 1 week. Use common sense. Don't exhaust yourself. - No hunting, skiing, jogging, snow shoveling, snowmobiling, lawn mowing, swimming, golf or tennis until after your return appointment with your family doctor. - Do not ride motorcycles, tractors or horses until cleared by your doctor. Diet: - Heart healthy: low salt, low fat, low concentrated sweets. Remember to avoid added salt, canned foods, processed foods (ie hot dogs, sausage, cold meats), and foods naturally high in salt, such as potato chips or pizza. Driving: - Per your routine after [address] if you feel dizzy, light headed, or are taking narcotic medications (ie/ Oxycodone, Morphine, Dilaudid, etc). Shower/Bath: - You may shower 24 hours after cardiac catheterization. - You may not sit in water for 5 days (tub bath, hot tub or pool). Wound Care: - Cath site dressing may be removed in 24 hours. Site may be washed with soap/water. A dressing does not need to be reapplied unless irritation occurs with underclothes. If irritation occurs, apply clean band-aid daily. Exercise: - Exercise 5-7 days per week as tolerated with gradual increase to 30 minutes per day. Smoking cessation: - If you are currently a smoker, you are strongly urged to stop smoking! Smoking increases the severity and incidence of heart disease, and is a risk factor for cancer and emphysema. Your health careprovider can provide specific measures to assist you, including nicotine supplements, anti-anxiety meds, and support groups in your community. Who were my doctors while I was in the hospital? Kaleb Norwood MD - Attending Flyer Maker Shant Mustafa MD - Educational Administrator Shalom Mooney MD, Harry Aguilar DO - Resident Physicians When do I see my doctors next? Future Appointments Date Time Provider Department Center 03/09/2021 1:40 PM LAB, THREE L Lab 3L AB [facility] 03/09/2021 2:40 PM Mylene Carrero PA [facility] CARD 4A [facility] You will need to follow up with your PCP (Angela Cotto MD at [phone]) within 1 week of discharge - scheduled for 03/06 at 2pm. You will need to follow up with your Flyer Maker (Mylene Wagner with Dr. Alisa Reddy at [facility]) within 1 month of discharge - scheduled for 03/09/21 as above. For questions regarding issues relating to your hospitalization on the Cardiology Service, please contact your inpatient physician through the [facility] Powerhouse Operator [phone] and ask for pager #[phone]. Issues after hours and on weekends will be handled by the Cardiology staff on-call. documented in this encounter Medications at Time of Discharge Medication Sig Dispensed Refills Start Date End Date atorvastatin (Lipitor) 80 mg Tablet Take 1 [...] tablet Take 1 tablet by mouth daily. spironolactone (Aldactone) 25 mg Tablet Take 0.5 tablets by mouth daily. 90 tablet 3 02/27/2021 03/15/2022 torsemide (Demadex) 20 mg Tablet Take 2 tablets by mouth every morning. 90 tablet 3 02/26/2021 05/31/2021 nicotine polacrilex (Nicorette) 2 mg Gum Take 1 each by mouth every 2 hours as needed for Smoking cessation. 50 each 3 02/26/2021 05/31/2021 metFORMIN (GLUCOPHAGE) 1,000 mg Tablet Take 1,000 mg by mouth 2 times daily (with meals). 12/13/2021 documented as of this encounter Progress Notes * Denisse Michaels RN - 02/26/2021 10:19 AM EST Patient to discharge home, awaiting ride from daughter. AVS discussed with patient. RN answered allquestions and patient verbalized understanding. All belongings sent home with patient. IV and tele removed. * Kaleb Norwood MD - 02/26/2021 7:03 AM EST Inpatient Cardiology Progress Note Hospital Day 5 days Active Hospital Problems Diagnosis ??? CAD (coronary artery disease) Resolved Hospital Problems No resolved problems to display. ID: Ms. 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 24 Hour Events/Subjective: - NAEON, resting comfortably in bed this AM -Cough remains improved -Is eager to get home -Slept well -Denies shortness of breath, denies chest pain, denies -Walked around on 1 to 2 L nasal cannula and felt good Inpatient Medications: Scheduled Meds: ??? torsemide 40 mg Oral BID ??? metoprolol succinate XL 100 mg Oral Daily ??? losartan 25 mg Oral Daily ??? levothyroxine 50 mcg Oral Daily ??? spironolactone 12.5 mg Oral Daily ??? atorvastatin 80 mg Oral QPM ??? aspirin EC 81 mg Oral Daily ??? sodium chloride 0.9 % (flush) 5 mL Intravenous BID ??? enoxaparin 40 mg Subcutaneous Nightly ??? famotidine 20 mg Oral BID ??? magnesium oxide 400 mg Oral BID ??? insulin lispro 1-5 Units Subcutaneous TID AC Continuous Infusions: PRN Meds: gadoterate meglumine, benzonatate, ipratropium-albuteroL, sodium chloride 0.9 % (flush), lidocaine,glucose 40% oral geL OR dextrose 10% OR glucagon Vitals: Last value Range last 24 hrs Temperature Temp: 36.6 ??C (97.9 ??F) Temp: [36.4 ??C (97.6 ??F)-36.9 ??C (98.4 ??F)] Heart Rate Heart Rate: 93 Heart Rate: [81-94] Blood Pressure BP: 120/40 BP: (96-120)/(40-68) Respiratory Rate Resp: 19 Resp: [16-19] SpO2 SpO2: 94 % SpO2: [83 %-98 %] Ins/Outs: Intake/Output Summary (Last 24 hours) at 02/26/2021 0703 Last data filed at 02/26/2021 0400 Gross per 24 hour Intake 575 ml Output 2950 ml Net -2375 ml Patient Vitals for the past 168 hrs: Weight 02/26/21 0515 68.3 kg (150 lb 9.2 oz) 02/25/21 0549 68.6 kg (151 lb 3.8 oz) 02/24/21 0636 69 kg (152 lb 1.9 oz) 02/23/21 0451 69.8 kg (153 lb 14.1 oz) 02/22/21 0600 69.5 kg (153 lb 4.8 oz) 02/21/21 0954 66.7 kg (147 lb) Admit wt: 66.68 kg Physical Exam: Gen: NAD, A&Ox3, resting comfortably in chair on room air Neuro: CN II-VII grossly intact; no focal deficits grossly noted. Alert and oriented to self, situation, and conversation. HEENT: PERRLA, EOMI, sclera anicteric. CVS: RRR with normal S1/S2, distant heart sounds, no murmur appreciated, Pulm: bibasilar crackles (improved) Abd: soft, NTND, normal bowel sounds, no abnormal masses or pulsations Ext: no edema/clubbing/cyanosis, peripheral pulses full and equal. Skin: Intact with no rashes, petechiae, or ecchymoses Laboratory: CBC: Recent Labs 02/26/2142002/25/21 0613 02/24/21 0339 WBC 8.4 8.0 8.8 HGB 13.7 14.1 13.6 PLATELET 254 261 250 Chemistry: Recent Labs 02/26/2142002/25/21 0613 02/25/21 0010 02/24/21 0339 NA 140 139 138 140 K 4.3 4.1 4.2 3.9 CL 99 98 99 99 CO2 30 29 30 29 BUN 26* 21* 23* 19* CREATININE 1.05 0.89 0.94 1.00 GLUCOSE 108 118 -- 118 Recent Labs 02/26/21 04202/25/21 0613 02/25/21 0010 02/21/21 2205 02/21/21 1605 CALCIUM 9.0 9.1 8.8 < > 9.6 MAGNESIUM 0.98 1.11* 0.84 < > 0.68* PHOS -- -- -- -- 5.1* < > = values in this interval not displayed. LFT's: Recent Labs 02/22/21 1050 BILITOT 0.6 BILIDIR 0.2 ALBUMIN 4.2 ALKPHOS 74 ALT 52* AST 26 Coags: Recent Labs 02/21/21 1605 PT 13.1* INR 1.2 PTT 51* Endocrine: Recent Labs 02/21/21 1655 TSH 3.99 Diagnostic Studies: Results for orders placed or performed during the hospital encounter of 02/21/21 XR Chest One View (Exam End: 02/21/2021 5:00 PM) Impression Severely enlarged cardiac silhouette; suspect combination of dilated cardiomyopathy and pericardial effusion. Thank you for letting us participate in the care of this patient. If you are a health care provider and have any questions regarding this report, please contact the number below. For patients who have questions please contact the health pet care technician that requested your imaging first. Chest One View (Exam End: 02/25/2021 8:20 AM) Impression Bibasilar opacities, suspect subsegmental atelectases. Stable cardiomegaly. Thank you for letting us participate in the care of this patient. If you are a health care provider and have any questions regarding this report, please contact the number below. For patients who have questions please contact the health pet care technician that requested your imaging first. Cardiac Cath 02/21/2021 - 100% RCA occlusion of the distal-vessel that is ISR. Collaterals supplied from the LAD system. - LVEDP 45 and required rescue bipap during the procedure. TTE 02/22/2021 SUMMARY: ?? 1. The left ventricle is severely dilated. [...] is a small to moderate pericardial effusion. CXR 02/25/21: FINDINGS: Stable cardiomegaly. Ill-defined linear and wedge-shaped bibasilar opacities, concerning for subsegmental atelectases. No areas of airspace consolidation or evidence of pulmonary edema. ?? IMPRESSION Bibasilar opacities, suspect subsegmental atelectases. Stable cardiomegaly. Assessment & Plan: Ms. 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 ?? LHC showed RESPIRATORY CARE INSTRUCTOR of RCA with good collateral flow, nonocclusive left-sided coronary disease. Ischemiaout of proportion with level of cardiomyopathy. No was intervention performed. Thus, likely her dilated cardiomyopathy is non- ischemic.cMRI attempted but coughing precluded the study. It is ok to setthis up as an oupatient. Patient to follow-up with Dr. Reddy. Optimizing GDMT while here. Family working on obtaining Medicare D; thus holding off on entresto and SGLT-2 given cost; on alternatives. Transitioning to PO torsemide today in anticipation of discharge. Patient will need home O2 on discharge; case management aware. Will monitor 1 more day with transition on PO diuretics and hope to discharge home tomorrow. 02/26: Continues to do well, breathing somewhat improved, pulmonary exam improved today following twice daily torsemide yesterday with 2.5 L net output. We will transition to once daily torsemide dosing for discharge and plan for her to go home today with close follow-up. ?? PLAN: #Flash pulmonary edema #HFrEF, acute exacerbation #Dilated cardiomyopathy (idiopathic?) - vitamin D, iron studies, TSH, lyme, HIV wnl - cMRI as outpatient -Continue metoprolol succinate 100 mg daily -Continue PO torsemide 40 mg daily - continue spironolactone 12.5mg daily - continue losartan 25mg daily - CXR 02/25: bibasilar atelectasis, stable cardiomegaly -family working on obtaining medicare D e so she can get entresto and sglt2i -plan to follow up with Dr. Reddy ЕКАТЕРИНА in 2 weeks - appt scheduled -scheduled to follow up in PCP office on 03/06 at 2pm #Mild-moderate pericardial effusion Seen on TTE, was mild per read from [facility] 1 week ago. Unclear etiology, though most likely her chronic severe HFrEF. No indication for drainage. - no tamponade physiology #ASCVD #CAD s/p RCA stent in 2013 - cath with non-occlusive CAD - C showed RESPIRATORY CARE INSTRUCTOR of RCA - aspirin 81 daily - atorvastatin 80 mg daily Chronic problems: ?? #DM2 -hold home metformin -AC and HS checks -SSI ?? #Hypothyroid -continue home L-thyroxine (50mcg per daughter after checking with pharmacy) -stop home liothyronine per endocrinology curbside -TSH and T4 within normal limits, T3 unreliable in setting of acute illness -Follow up outpatient for check in 4-6 weeks and titrate as outpatient #Gout -ntd ? Other: - DVT prophylaxis: lovenox - GI prophylaxis: n/a - Diet: cardiac diet - Code Status: full code - Dispo: Home today Shalom Mooney MD PGY-1 Cardiology 02/26/21 CARDIOLOGY ATTENDING NOTE Patient: Stacy Esparza Date of Service: 02/26/2021 Date of Admission: 02/21/2021 Length of Stay Hospital Day 5 days Please see the above note by??Dr. Mooney for details. I have interviewed and examined the patientindependently and I concur with the assessment and plan. The case was discussed on cardiology rounds and we reviewed the plan of care with the team and patient. In addition, I certify that I am a D-Hcredentialed attending provider with admitting privileges and that the patient meets or has met medical necessity to require an inpatient IPI level of care meeting a minimum of two midnights or [facility] (status C) due to:??decompensated congestive heart failure requiring IV medication and fluid monitoring. ?? Mrs. 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 TTE with EF 15- 20%. She's on GDMT with BB, ARB, MRA, oral diuretic. Qualifiesfor home oxygen. Discharge today, has f/u with CHF team. Will need cardiac MRI as outpatient for evaluation of non-ischemic cardiomyopathy. ?? Rest per Dr. Mooney.?? Kaleb Norwood MD, MPH, RPVI, FACC, FSVM Pager [phone] Cardiovascular Clay MinerRefinery Operator Visbreakingtool and machine maintainer [place] [address] * Denisse Michaels RN - 02/25/2021 5:51 PM EST OUTCOME EVALUATION NOTE: OUTCOME SUMMARY: Patient AO4. VSS on 1L NC. SR on tele. No complaints of CP or SOB. Ambulated around unit. Call ball within reach. Will continue to monitor. PLAN MOVING FORWARD: Continue discharge planning as appropriate INDIVIDUALIZED FALL PREVENTION INTERVENTIONS: Patient-specific fall risk factors per assessment: [current deficits]: generalized weakness, unfamiliar environment, tubes/wires. Assistance [level of assistance required for transfers and ambulation]: independent Supervision [direct monitoring required during toileting and ADLs]: Hourly rounding, room near RN station, call monae in reach. Surveillance [continuous indirect monitoring]: Tele and O2 monitoring Patient-specific fall prevention interventions for sensory deficits provided, if applicable: Lighting adjusted for tasks for safety, non skid socks, bed lowered and in locked position. CPG GOAL OUTCOME EVALUATION: ongoing * Kaleb Norwood MD - 02/25/2021 10:21 AM EST Inpatient Cardiology Progress Note Hospital Day 4 days Active Hospital Problems Diagnosis ??? CAD (coronary artery disease) Resolved Hospital Problems No resolved problems to display. ID: Ms. 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 24 Hour Events/Subjective: - NAEON, resting comfortably in bed this AM - cough improved - 5 second run of NSVT this AM, asymptomatic - O2 sat dipped into the 80s with ambulation on RA yesterday - U/O 2.2 L / NN 1.96 L in 24 hours (s/p 3x 80 mg IV lasix), 151 Ib Inpatient Medications: Scheduled Meds: ??? torsemide 40 mg Oral BID ??? metoprolol tartrate 25 mg Oral Q6H JOSE ??? losartan 25 mg Oral Daily ??? levothyroxine 50 mcg Oral Daily ??? spironolactone 12.5 mg Oral Daily ??? atorvastatin 80 mg Oral QPM ??? aspirin EC 81 mg Oral Daily ??? sodium chloride 0.9 % (flush) 5 mL Intravenous BID ??? enoxaparin 40 mg Subcutaneous Nightly ??? famotidine 20 mg Oral BID ??? magnesium oxide 400 mg Oral BID ??? insulin lispro 1-5 Units Subcutaneous TID AC Continuous Infusions: PRN Meds: gadoterate meglumine, benzonatate, ipratropium-albuteroL, sodium chloride 0.9 % (flush), lidocaine,glucose 40% oral geL OR dextrose 10% OR glucagon Vitals: Last value Range last 24 hrs Temperature Temp: 36.6 ??C (97.9 ??F) Temp: [36.6 ??C (97.9 ??F)-37 ??C (98.6 ??F)] Heart Rate Heart Rate: 84 Heart Rate: [78-102] Blood Pressure BP: 105/66 BP: (90-117)/(52-74) Respiratory Rate Resp: 16 Resp: [-] SpO2 SpO2: 95 % SpO2: [83 %-95 %] Ins/Outs: Intake/Output Summary (Last 24 hours) at 02/25/2021 1021 Last data filed at 02/25/2021 0800 Gross per 24 hour Intake -- Output 2700 ml Net -2700 ml Patient Vitals for the past 168 hrs: Weight 02/25/21 0549 68.6 kg (151 lb 3.8 oz) 02/24/21 0636 69 kg (152 lb 1.9 oz) 02/23/21 0451 69.8 kg (153 lb 14.1 oz) 02/22/21 0600 69.5 kg (153 lb 4.8 oz) 02/21/21 0954 66.7 kg (147 lb) Admit wt: 66.68 kg Physical Exam: Gen: NAD, A&Ox3, resting comfortably in chair on 1-2 L NC Neuro: CN II-VII grossly intact; no focal deficits grossly noted. Alert and oriented to self, situation, and conversation. HEENT: PERRLA, EOMI, sclera anicteric. Neck: Supple, no appreciable LAD, no thyromegaly CVS: RRR with normal S1/S2, distant heart sounds, no murmur appreciated, Pulm: mild bibasilar crackles (improved) Abd: soft, NTND, normal bowel sounds, no abnormal masses or pulsations Ext: no edema/clubbing/cyanosis, peripheral pulses full and equal. Skin: Intact with no rashes, petechiae, or ecchymoses Laboratory: CBC: Recent Labs 02/25/21 0602/24/2133802/23/21 0445 WBC 8.0 8.8 8.7 HGB 14.1 13.6 13.6 PLATELET 261 250 254 Chemistry: Recent Labs 02/25/21 0613 02/25/21 0010 02/24/21 0339 02/23/21 0445 NA 139 138 140 142 K 4.1 4.2 3.9 4.2 CL 98 99 99 104 CO2 29 30 29 28 BUN 21* 23* 19* 19* CREATININE 0.89 0.94 1.00 0.81 GLUCOSE 118 -- 118 109 Recent Labs 02/25/21 0613 02/25/21 0010 02/24/21 0339 02/21/21 2205 02/21/21 1605 CALCIUM 9.1 8.8 8.9 < > 9.6 MAGNESIUM 1.11* 0.84 0.85 < > 0.68* PHOS -- -- -- -- 5.1* < > = values in this interval not displayed. LFT's: Recent Labs 02/22/21 1050 BILITOT 0.6 BILIDIR 0.2 ALBUMIN 4.2 ALKPHOS 74 ALT 52* AST 26 Coags: Recent Labs 02/21/21 1605 PT 13.1* INR 1.2 PTT 51* Endocrine: Recent Labs 02/21/21 1655 TSH 3.99 Diagnostic Studies: Results for orders placed or performed during the hospital encounter of 02/21/21 XR Chest One View (Exam End: 02/21/2021 5:00 PM) Impression Severely enlarged cardiac silhouette; suspect combination of dilated cardiomyopathy and pericardial effusion. Thank you for letting us participate in the care of this patient. If you are a health care provider and have any questions regarding this report, please contact the number below. For patients who have questions please contact the health pet care technician that requested your imaging first. Chest One View (Exam End: 02/25/2021 8:20 AM) Impression Bibasilar opacities, suspect subsegmental atelectases. Stable cardiomegaly. Thank you for letting us participate in the care of this patient. If you are a health care provider and have any questions regarding this report, please contact the number below. For patients who have questions please contact the health pet care technician that requested your imaging first. Cardiac Cath 02/21/2021 - 100% RCA occlusion of the distal-vessel that is ISR. Collaterals supplied from the LAD system. - LVEDP 45 and required rescue bipap during the procedure. TTE 02/22/2021 SUMMARY: ?? 1. The left ventricle is severely dilated. [...] is a small to moderate pericardial effusion. Assessment & Plan: Ms. 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 ?? LHC showed RESPIRATORY CARE INSTRUCTOR of RCA with good collateral flow, nonocclusive left-sided coronary disease. Ischemiaout of proportion with level of cardiomyopathy. No was intervention performed. Thus, likely her dilated cardiomyopathy is non- ischemic.cMRI attempted but coughing precluded the study. It is ok to setthis up as an oupatient. Patient to follow-up with Dr. Reddy. Optimizing GDMT while here. Family working on obtaining Medicare D; thus holding off on entresto and SGLT-2 given cost; on alternatives. Transitioning to PO torsemide today in anticipation of discharge. Patient will need home O2 on discharge; case management aware. Will monitor 1 more day with transition on PO diuretics and hope to discharge home tomorrow. ?? PLAN: #Flash pulmonary edema #HFrEF, acute exacerbation #Dilated cardiomyopathy (idiopathic?) - vitamin D, iron studies, TSH, lyme, HIV wnl - cMRI as outpatient - transition to metoprolol succinate 100 mg daily - transition to PO torsemide 40 mg BID - continue spironolactone 12.5mg daily - continue losartan 25mg daily - CXR 02/25: bibasilar atelectasis, stable cardiomegaly -family working on obtaining medicare D e so she can get entresto and sglt2i -plan to follow up with Dr. Reddy ЕКАТЕРИНА in 2 weeks - appt scheduled -scheduled to follow up in PCP office on 03/06 at 2pm #Mild-moderate pericardial effusion Seen on TTE, was mild per read from [facility] 1 week ago. Unclear etiology, though most likely her chronic severe HFrEF. No indication for drainage. - no tamponade physiology #ASCVD #CAD s/p RCA stent in 2012 - cath with non-occlusive CAD - [facility] showed RESPIRATORY CARE INSTRUCTOR of RCA - aspirin 81 daily - atorvastatin 80 mg daily Chronic problems: ?? #DM2 -hold home metformin -AC and HS checks -SSI ?? #Hypothyroid -continue home L-thyroxine (50mcg per daughter after checking with pharmacy) -stop home liothyronine per endocrinology curbside -TSH and T4 within normal limits, T3 unreliable in setting of acute illness -Follow up outpatient for check in 4-6 weeks and titrate as outpatient #Gout -ntd ? Other: - DVT prophylaxis: lovenox - GI prophylaxis: n/a - Diet: cardiac diet - Code Status: full code - Dispo:pending clinical status Harry Aguilar DO PGY-3 Cardiology 02/25/21 CARDIOLOGY ATTENDING NOTE Patient: Stacy Esparza Date of Service: 02/25/2021 Date of Admission: 02/21/2021 Length of Stay Hospital Day 4 days Please see the above note by Dr. Aguilar for details. I have interviewed and examined the patient independently and I concur with the assessment and plan. The case was discussed on cardiology rounds and we reviewed the plan of care with the team and patient. In addition, I certify that I am a D-H credentialed attending provider with admitting privileges and that the patient meets or has met medicalnecessity to require an inpatient IPI level of care meeting a minimum of two midnights or is [facility] only procedure list (status C) due to: decompensated congestive heart failure requiring IV medication and fluid monitoring. ?? Mrs. 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 TTE with EF 15- 20%. Continue to optimize GMDT with BB, ARB, MRA. Switch to oral diuretic today. Qualifies for home oxygen. Likely discharge tomorrow. Will need cardiac MRI as outpatient for evaluation of non-ischemic cardiomyopathy. ?? Rest per Dr. Aguilar. Kaleb Norwood MD, MPH, RPVI, FACC, FS Pager [phone] Cardiovascular Clay MinerRefinery Operator [employer] [place] [address] * Harry Aguilar DO - 02/25/2021 8:41 AM EST Certification of Medical Necessity Form for Home Oxygen Stacy Esparza is requiring HOME OXYGEN due to the diagnosis of hypoxia due to: Idiopathic Dilated Cardiomyopathy ?? Oxygen is required continuously (x), OR when mobile ( ) and/or at night( ). ? RA SpO2 at rest: 88% RA SpO2 ambulatin% ?? 1L SpO2 at rest: 97% 1L SpO2 ambulatin% ?? Oxygen saturations documented Resting on Room Air: 88% Resting on 1 liters of O2: 97% ?? (Please document below the Activity Saturations if Resting saturations are >88% ) Activity on Room Air: 83%% Activity on O2 at 1L liters: 92% ?? O2 Sats collected by: Vonda Arango Date Sats Collected: 02/25/2021 ?? Mobility: Patient is OR is mobile. (Requiring portable oxygen) ?? Rate: 1 L/min Route: PA Vendor Ordered: [facility] ?? I anticipate that Stacy Esparza will be discharged within 1 day. * Vonda Arango RN - 02/25/2021 7:15 AM EST RA SpO2 at rest: 88% RA SpO2 ambulatin% ?? 1L SpO2 at rest: 97% 1L SpO2 ambulatin% * Arlette Enriquez RD - 02/24/2021 1:21 PM EST Nutrition Services Note - Low Nutrition Acuity Stacy Esparza is a 65 y.o. female with PMHx significant for hypothyroidism, coronary disease s/p RCA stent in 2012, who presents for planned outpatient cardiac catheterization in the setting of recent acute onset of severe POZO 10 days ago with newly reduced EF 20-25% (from 53% on last check), who developed flash pulmonary edema in the poultry farm laborer requiring rescue bipap, since stabilized with nitro drip and IV diuresis. Reason for intervention: consult cx: Would like more information about a low sodium diet, food alternatives to high sodium foods. Nutrition Plan: Continue [facility] diet order Encourage good po intake Monitor weight Monitor BM - may need to adjust regimen Pt seen for low sodium education, Two Gram Sodium Diet booklet at bedside. Provided her with [facility] booklet as well. Pt reported she has had low Na and low fat diet education in the past from other dietitians, familiar with the diet. 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 Pt reported she either doesn't add salt to foods or adds very little. Pt reported the higher sodium foods she consumes are chips, deli meats, and rothman, reported she already got rid of the chips/snack foods she has. Expressed good understanding of [id number]. Active Orders Diet Daily Healthy Menu Choices/Cardiac diet ([facility]-Diet) Frequency: Effective Now Number of Occurrences: Until Specified Admit Weight: 66.68 kg Estimated body mass index is 26.11 kg/m?? as calculated from the following: Height as of this encounter: 162.6 cm (5' 4). Weight as of this encounter: 69 kg (152 lb 1.9 oz). Usual body weight: ~157 lbs per pt Wt Readings from Last 5 Encounters: 02/24/21 69 kg (152 lb 1.9 oz) 06/19/12 67.1 kg (148 lb) Weight loss: not clinically significant Appetite: Good (50%-75%) Food allergies:no known food allergies Chewing/Swallowing difficulty: none Nausea/Vomiting: no nausea and no vomiting Last Bowel Movement: 02/20/21 Patient education / questions: provided diet order education and patient with good understanding Nutrition services to follow weekly through hospital course unless consulted in the interim. Arlette Enriquez RD Pager: [phone] * Sendy Myles RN - 02/24/2021 11:33 AM EST RA SpO2 at rest: 90% RA SpO2 ambulatin% 1L SpO2 at rest: 95% 1L SpO2 ambulatin% * Beverly Baum RN - 02/24/2021 10:59 AM EST RNCM reviewed a list of DME vendors with Chelsea (daughter) and patient which serve the preferred geographic area. Education was provided about the right to choose where referrals are placed. Chelsea and patient requests referral to: [facility] (Resp Supplies) Central Intake: [place]: [place]: Expected date of discharge: 02/25/21. Referral routed to the Machine Or Machinery Mechanic for matching with agency/vendor and to provide any required information. * Harry Aguilar DO - 02/24/2021 10:53 AM EST Certification of Medical Necessity Form for Home Oxygen Stacy Esparza is requiring HOME OXYGEN due to the diagnosis of hypoxia due to: Idiopathic Dilated Cardiomyopathy Oxygen is required continuously (x), OR when mobile ( ) and/or at night( ). RA SpO2 at rest: 90% RA SpO2 ambulatin% ?? 1L SpO2 at rest: 95% 1L SpO2 ambulatin% Oxygen saturations documented Resting on Room Air: 90% Resting on 1 liters of O2: 95% (Please document below the Activity Saturations if Resting saturations are >88% ) Activity on Room Air: 91%% Activity on O2 at 1L liters: 95 % O2 Sats collected by: Sendy Myles Date Sats Collected: 02/24/2021 Mobility: Patient is OR is mobile. (Requiring portable oxygen) Rate: 1-2 L/min Route: PA Vendor Ordered: [facility] I anticipate that Stacy Esparza will be discharged within 2 days. * Kaleb Norwood MD - 02/24/2021 6:34 AM EST Inpatient Cardiology Progress Note Hospital Day 3 days Active Hospital Problems Diagnosis ??? CAD (coronary artery disease) Resolved Hospital Problems No resolved problems to display. ID: Ms. 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 24 Hour Events/Subjective: -No acute events overnight, vital signs stable, afebrile, remains on 1 to 2 L nasal cannula -Started on spironolactone and metoprolol yesterday, which she tolerated well -Seen by PT who recommends home with assistance -Received 80 mg IV Lasix yesterday and was not redosed overnight. -She denies shortness of breath, chest pain, dizziness -Denies any complaints ROS: Denies fevers/chills, chest pain, shortness of breath, diarrhea/vomiting/abdominal pain/constipation, muscle aches or weakness. Inpatient Medications: Scheduled Meds: ??? metoprolol tartrate 12.5 mg Oral Q6H JOSE ??? spironolactone 12.5 mg Oral Daily ??? levothyroxine 100 mcg Oral Daily ??? atorvastatin 80 mg Oral QPM ??? aspirin EC 81 mg Oral Daily ??? sodium chloride 0.9 % (flush) 5 mL Intravenous BID ??? enoxaparin 40 mg Subcutaneous Nightly ??? famotidine 20 mg Oral BID ??? magnesium oxide 400 mg Oral BID ??? insulin lispro 1-5 Units Subcutaneous TID AC Continuous Infusions: PRN Meds: gadoterate meglumine, benzonatate, ipratropium-albuteroL, sodium chloride 0.9 % (flush), lidocaine,glucose 40% oral geL OR dextrose 10% OR glucagon Vitals: Last value Range last 24 hrs Temperature Temp: 36.7 ??C (98.1 ??F) Temp: [36.4 ??C (97.5 ??F)-36.9 ??C (98.4 ??F)] Heart Rate Heart Rate: 87 Heart Rate: [87-111] Blood Pressure BP: 109/71 BP: (108-123)/(63-76) Respiratory Rate Resp: 17 Resp: [14-29] SpO2 SpO2: 94 % SpO2: [93 %-98 %] Ins/Outs: Intake/Output Summary (Last 24 hours) at 02/24/2021 0634 Last data filed at 02/24/2021 0400 Gross per 24 hour Intake 1255 ml Output 2100 ml Net -845 ml Patient Vitals for the past 168 hrs: Weight 02/23/21 0451 69.8 kg (153 lb 14.1 oz) 02/22/21 0600 69.5 kg (153 lb 4.8 oz) 02/21/21 0954 66.7 kg (147 lb) Admit wt: 66.68 kg Physical Exam: Gen: NAD, A&Ox3, resting comfortably in chair Neuro: CN II-VII grossly intact; no focal deficits grossly noted. Alert and oriented to self, situation, and conversation. HEENT: PERRLA, EOMI, sclera anicteric. Neck: Supple, no appreciable LAD, no thyromegaly CVS: RRR with normal S1/S2, distant heart sounds, no murmur appreciated, JVP mildly elevated to 2cmabove clavicle Pulm: occasional wet cough, bibasilar crackles, improved air movement, though still reduced breath sounds Abd: soft, NTND, normal bowel sounds, no abnormal masses or pulsations Ext: no edema/clubbing/cyanosis, peripheral pulses full and equal. Skin: Intact with no rashes, petechiae, or ecchymoses Laboratory: CBC: Recent Labs 02/24/21 0339 02/23/21 0445 02/22/21 0515 WBC 8.8 8.7 9.5 HGB 13.6 13.6 13.3 PLATELET 250 254 256 Chemistry: Recent Labs 02/24/21 03302/23/21 0445 02/22/21 0515 NA 140 142 140 K 3.9 4.2 4.2 CL 99 104 104 CO2 29 28 26 BUN 19* 19* 22* CREATININE 1.00 0.81 0.90 GLUCOSE 118 109 104 Recent Labs 02/24/21 0339 02/23/21 0445 02/22/21 0515 02/21/21 2205 02/21/21 1605 CALCIUM 8.9 9.1 8.7 < > 9.6 MAGNESIUM 0.85 0.94 0.88 < > 0.68* PHOS -- -- -- -- 5.1* < > = values in this interval not displayed. LFT's: Recent Labs 02/22/21 1050 BILITOT 0.6 BILIDIR 0.2 ALBUMIN 4.2 ALKPHOS 74 ALT 52* AST 26 Coags: Recent Labs 02/21/21 1605 PT 13.1* INR 1.2 PTT 51* Cardiac enzymes: No results for input(s): TROPONINT, CK in the last 7068 hours. Endocrine: Recent Labs 02/21/21 1655 TSH 3.99 Heme: No results for input(s): LDH, HAPTOGLOBIN, URICACID in the last 168 hours. Microbiology: None Diagnostic Studies: Results for orders placed or performed during the hospital encounter of 02/21/21 XR Chest One View (Exam End: 02/21/2021 5:00 PM) Impression Severely enlarged cardiac silhouette; suspect combination of dilated cardiomyopathy and pericardial effusion. Thank you for letting us participate in the care of this patient. If you are a health care provider and have any questions regarding this report, please contact the number below. For patients who have questions please contact the health pet care technician that requested your imaging first. : ?? SUMMARY: ?? 1. The left ventricle is severely dilated. [...] is a small to moderate pericardial effusion. Assessment & Plan: Ms. 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 ?? LHC showed RESPIRATORY CARE INSTRUCTOR of RCA with good collateral flow, nonocclusive left-sided coronary disease. No intervention performed. ?? The etiology of her newly reduced EF is unclear. RCA RESPIRATORY CARE INSTRUCTOR aligns with her inferior akinesis, though her diffuse LV hypokinesis does not appear to be ischemic in nature, so we will proceed with workup and optimization of her GDMT. Ddx includes tachymyopathy (recent palpitations), ETOH (denies recent use), infectious (denies recent infectious symptoms), other. 02/24: Remains clinically improved, still wet on exam so we will continue diuresis today while titrating GDMT. Plan for net negative -2-3L and transition to PO torsemide 40mg tomorrow. MRI still pending. ?? PLAN: ?? #Flash pulmonary edema #HFrEF, acute exacerbation #Dilated cardiomyopathy of unclear etiology -vitamin D, iron studies, TSH, lyme, HIV wnl -further workup as outpatient -tele -increase metoprolol 25mg q6h (02/24-, from 50 bid at home) -continue spironolactone 12.5mg daily -start losartan 25mg daily -cardiac MRI -work with case management associate to get insurance coverage so she can get entresto and sglt2i -plan to follow up with Dr. Reddy ЕКАТЕРИНА in 2 weeks - appt scheduled Scheduled to follow up in PCP office on 03/06 at 2pm #Mild-moderate pericardial effusion Seen on TTE, was mild per read from [facility] 1 week ago. Unclear etiology, though most likely her chronic severe HFrEF. No indication for drainage now, as she is stable.? #CAD s/p RCA stent in 2012 -s/p [facility], no indication for intervention -continue home ASA 81 -continue home lipitor 80 ?? Chronic problems: ?? #DM2 -hold home metformin -AC and HS checks ?? #Hypothyroid -continue home L-thyroxine (50mcg per daughter after checking with pharmacy) -stop home liothyronine per endocrinology curbside -TSH and T4 within normal limits, T3 unreliable in setting of acute illness -Follow up outpatient for check in 4-6 weeks and titrate as outpatient #Gout -ntd ? Other: - DVT prophylaxis: lovenox - GI prophylaxis: n/a - Diet: cardiac diet - Code Status: full code - Dispo:pending clinical status Shalom Mooney MD PGY1 Cardiology 02/24/21 CARDIOLOGY ATTENDING NOTE Patient: Stacy Esparza Date of Service: 02/24/2021 Date of Admission: 02/21/2021 Length of Stay Hospital Day 3 days Please see the above note by Dr. Mooney for details. I have interviewed and examined the patient independently and I concur with the assessment and plan. The case was discussed on cardiology roundsand we reviewed the plan of care with the team and patient. In addition, I certify that I am a D-H credentialed attending provider with admitting privileges and that the patient meets or has met medical necessity to require an inpatient IPI level of care meeting a minimum of two midnights or [facility] procedure list (status C) due to: decompensated congestive heart failure requiring IV medication and fluid monitoring. Mrs. 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 TTE with EF 15- 20%. Continue to optimize GMDT - increase BB, start ARB (doesn't have insurance for Entresto currently), continue MRA. Continue diuresis. Cardiac MRI for evaluation of non-ischemic cardiomyopathy. Rest per Dr. Mooney. Kaleb Norwood MD, MPH, RPVI, FACC, [facility] Pager [phone] Cardiovascular Clay MinerRefinery Operator [employer] [place] [address] * Cornell Cruz RN - 02/24/2021 1:15 AM EST OUTCOME EVALUATION NOTE: OUTCOME SUMMARY: A&Ox4. Uneventful night. VSS. Weaned O2 to 1 LPM NC. Started metoprolol. Up ad ksenia. PLAN MOVING FORWARD: Telemetry monitoring, diuresing. INDIVIDUALIZED FALL PREVENTION INTERVENTIONS: Patient-specific fall risk factors per assessment: [current deficits]: Unfamiliar environment, telemetry wires. Assistance [level of assistance required for transfers and ambulation]: Independent Supervision [direct monitoring required during toileting and ADLs]: Independent Surveillance [continuous indirect monitoring]: Telemetry, SpO2, purposeful rounding Patient-specific fall prevention interventions for sensory deficits provided, if applicable: [X] Yes Bed in low position, call monae in reach, non-skid socks applied, Purposeful rounding. CPG GOAL OUTCOME EVALUATION: Ongoing * Lina Márquez RN - 02/23/2021 6:46 PM EST Physical therapy ambulated patient in the esquivel, pt tolerated well. K protocol dc'd, continue to IV diuresis patient, pt is currently on 2 L, try weaning patient off O2 as tolerated * Jhon Bethea MSW - 02/23/2021 10:37 AM EST Assisted patient in completing her [place] Advance Directive.. Please see copies of these documents in eDH * Alisa De Leon MD - 02/23/2021 10:16 AM EST Cardiology Critical Care Service (ICU) Attending Daily Progress Note Patient: Stacy Esparza : 1955 Date of Admission: 02/21/2021 Reason for Admission: Hypoxic respiratory failure LOS: 2 Please see today's progress note from primary team for full details but in brief: Interval Events: HR 90-100's BP 110-120's Tele with AT, ST and triplets overnight 93% NC 2L WGt 153 CBC stabl e K 4.2, Cre 0.81 ALT 52, AST 26 CRP 3.8 Normal TFT's Home Medications: No current facility-administered medications on file prior to encounter. Current Outpatient Medications on File Prior to Encounter Medication Sig Dispense Refill ??? UNABLE TO FIND daily. N-Acetylcysteine ??? ergocalciferoL, vitamin D2, (vitamin D2) 50,000 unit Capsule Take 50,000 Units by mouth once a week. ??? metFORMIN (GLUCOPHAGE) 1,000 mg Tablet Take 1,000 mg by mouth 2 times daily (with meals). ??? simvastatin (ZOCOR) 20 mg tablet Take 20 mg by mouth nightly. ??? levothyroxine (SYNTHROID) 50 mcg tablet Take 150 mcg by mouth daily. ??? liothyronine (CYTOMEL) 5 mcg tablet Take 10 mcg by mouth daily. ??? furosemide (LASIX) 80 mg tablet Take 80 mg by mouth every morning. ??? metoprolol tartrate (LOPRESSOR) 50 mg tablet Take 100 mg by mouth daily. ??? aspirin 81 mg EC tablet Take 81 mg by mouth daily. ??? multivitamin (THERAGRAN) tablet Take 1 tablet by mouth daily. ??? losartan (Cozaar) 25 mg Tablet Take 25 mg by mouth daily. Has not started yet, recently presribed ??? allopurinoL (Zyloprim) 100 mg Tablet Take 100 mg by mouth as needed (for Gout attacks). ??? nitroGLYcerin (NITROSTAT) 0.[address] 1 tablet under the tongue daily as needed for Chest pain. 90 tablet 3 ??? furosemide (LASIX) 40 mg tablet Take 40 mg by mouth every evening. Current Medications: Scheduled Meds: ??? metoprolol tartrate 12.5 mg Oral Q6H JOSE ??? atorvastatin 80 mg Oral QPM ??? aspirin EC 81 mg Oral Daily ??? levothyroxine 150 mcg Oral Daily ??? sodium chloride 0.9 % (flush) 5 mL Intravenous BID ??? enoxaparin 40 mg Subcutaneous Nightly ??? famotidine 20 mg Oral BID ??? magnesium oxide 400 mg Oral BID ??? insulin lispro 1-5 Units Subcutaneous TID AC Continuous Infusions: PRN Meds:.sodium chloride 0.9 % (flush), lidocaine, potassium chloride ER OR potassium chlorideER, glucose 40% oral geL OR dextrose 10% OR glucagon Vitals: Last value Range last 24 hrs Temperature Temp: 36.9 ??C (98.4 ??F) Temp: [36.4 ??C (97.5 ??F)-36.9 ??C (98.4 ??F)] Heart Rate Heart Rate: (!) 102 Heart Rate: [93-103] Blood Pressure BP: 121/70 BP: (100-121)/(52-81) Respiratory Rate Resp: 22 Resp: [15-24] SpO2 SpO2: 93 % SpO2: [93 %-96 %] Art BP BP (Arterial Line): -- Weight: Patient Vitals for the past 168 hrs: Weight 02/23/21 0451 69.8 kg (153 lb 14.1 oz) 02/22/21 0600 69.5 kg (153 lb 4.8 oz) 02/21/21 0954 66.7 kg (147 lb) Weight change: 3.121 kg (6 lb 14.1 oz) In/Out: Intake/Output Summary (Last 24 hours) at 02/23/2021 1016 Last data filed at 02/23/2021 0952 Gross per 24 hour Intake 650 ml Output 1600 ml Net -950 ml Physical Exam: General: NAD Neck: JVP unable to appreciate Cardiac: PMI nondisplaced, RRR w/o mrg Chest: CTAB Abdomen: Soft NT ND, +BS Extremities: WWP w/ no sig edema Neuro: AxOx3 Skin: No rashes observed Investigations: Recent Results (from the past 24 hour(s)) Hepatic Function Panel Result Value Ref Range Total Protein 6.7 6.1 - 8.0 g/dL Albumin 4.2 3.2 - 5.2 g/dL AST 26 0 - 30 unit/L ALT 52 (H) 0 - 30 unit/L Alk Phos 74 35 - 105 unit/L Total Bilirubin 0.6 0.2 - 1.3 mg/dL Bili, Direct 0.2 0.0 - 0.3 mg/dL CRP, acute inflammation Result Value Ref Range CRP 3.8 <=4.9 mg/L T3 Total Result Value Ref Range T3, Total 50 (L) 75 - 170 ng/dL T4, free Result Value Ref Range Free T4 1.15 0.93 - 1.70 ng/dL POCT Glucose Result Value Ref Range POC Glucose 146 65 - 199 mg/dL POCT Glucose Result Value Ref Range POC Glucose 172 65 - 199 mg/dL Basic Metabolic Panel (non-fasting) Result Value Ref Range Glucose Lvl 109 65 - 199 mg/dL BUN 19 (H) 8 - 18 mg/dL Creatinine 0.81 0.70 - 1.20 mg/dL Sodium 142 135 - 145 mmol/L Potassium 4.2 3.5 - 5.0 mmol/L Chloride 104 98 - 107 mmol/L CO2 28 22 - 31 mmol/L Anion Gap 10 5 - 15 mmol/L Calcium 9.1 8.5 - 10.5 mg/dL Estimated GFR 76 >=60 mL/min/1.73 m?? Magnesium Result Value Ref Range Magnesium 0.94 0.69 - 1.07 mmol/L Lyme IgG & IgM Antibody Result Value Ref Range Lyme Screening Antibody Neg Neg HIV Screen, 4th Generation ([facility]/CGP/APD/NLH) Result Value Ref Range HIV-1/2 Ab and Ag Negative Negative HIV Comment Low Risk of HIV Infection Hemogram Result Value Ref Range WBC 8.7 4.0 - 9.5 x10(3)/mcL RBC 4.45 4.00 - 5.21 x10(6)/mcL Hemoglobin 13.6 11.7 - 15.5 g/dL Hematocrit 41.2 35.7 - 45.8 % MCV 92.6 82.6 - 94.4 fL MCH 30.6 27.1 - 32.0 pg MCHC 33.0 31.7 - 35.0 g/dL Platelets 254 145 - 357 x10(3)/mcL RDWSD 48.0 (H) 37.0 - 46.0 fL RDWCV 14.4 (H) 11.5 - 14.1 % MPV 8.9 7.6 - 12.9 fL nRBC % Auto 0.0 % nRBC Abs Auto 0.000 0.000 - 0.000 x10(3)/mcL Differential, Automated Result Value Ref Range Neutrophils % 62.6 % Neutr Abs (ANC) 5.46 1.70 - 6.10 x10(3)/mcL Lymphocytes % 25.4 % Lymphocytes Abs 2.2 0.9 - 3.2 x10(3)/mcL Monocytes % 8.4 % Monocyte Abs 0.7 0.3 - 0.9 x10(3)/mcL Eosinophils % 2.6 % Eosinophils Abs 0.2 0.0 - 0.4 x10(3)/mcL Basophils % 0.8 % Basophils Abs 0.1 0.0 - 0.1 x10(3)/mcL Immature Gran % 0.20 % Nelida Gran Abs 0.02 0.00 - 0.04 x10(3)/mcL POCT Glucose Result Value Ref Range POC Glucose 113 65 - 199 mg/dL Relevant Cardiac Tests: TTE: 1. The left ventricle is severely dilated. [...] is a small to moderate pericardial effusion. ?? Cath with RESPIRATORY CARE INSTRUCTOR of RCA LVEDP 40 Assessment: 65 y.o. year old female w/ h/o CAD s/p PCI to RCA in 2012 c/b iCMP 25-30% who p/w worsening SOB andpersistent POZO last week. 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 After procedure she developed flash pulmonary edema and respiratory failure requiring BiPAP.Taken to [facility] for IV diuresis + IV TNG. Now improved with plan for dx w/u for DCM and optimization of meds. Plan: 1. Endo c/s re: T3/T4 2. cMR today @ 11:30 3. Metoprolol 12.5mg q6h 4. 03/26 tab Entresto BID 5. Samir 12.5mg QD 6. Will singh check dapa/empa 10mg QD 7. Lasix 40mg IV to get out diuretics 8. ZIO at dispo Alisa Reddy MD MPH [facility] Attending 02/23/2021, 10:16 AM * Natalie Murillo, PT - 02/23/2021 9:42 AM EST Physical Therapy Evaluation Patient profile: Stacy Esparza is a 65 y.o. female with past medical history significant for hypothyroidism, CAD s/p PCI to RCA in 2012 c/b iCMP 25-30% who presented for planned outpatient cardiac catheterization in the setting of recent acute onset of severe POZO 10 days ago with newly reduced EF 20-25% (from 53% on last check), ISR of the RCA lesion was noted. 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 Pt was admitted on 02/21/[address] Alisa Borrero MD. Patient with the following active problems: History reviewed. No pertinent past medical history. History reviewed. No pertinent surgical history. Active Non-Hospital Problems Diagnosis ??? Other primary cardiomyopathies ??? Alcohol abuse, unspecified ??? Hyperpotassemia ??? Cardiogenic shock ??? Unspecified hypothyroidism Social History: Home set-up: pt lives alone in an apartment with 15 JODI Bathroom Set-up: small shower stall, not big enough for shower seat Stairs: 15 JODI then all one level Baseline Mobility: independent with all ADLs/IADLs, no AD; about a week before admission pt startedto require significant increased time to complete tasks or was unable to do some tasks d/t SOB Equipment at home: none Fall history: none reported Precautions/Special Considerations: AAT, 2L NC, monitor vitals closely Lines: PIV, tele, 2L NC Activity Orders: AAT Diet: Healthy Menu Choices/Cardiac diet Mobility and Positioning Recommendations: ?? Pt. to utilize no AD and supervision (just to monitor vitals - pt is independent) for ambulationand transfers with nursing. ?? Please encourage up to chair for meal times as able. ?? Pt encouraged to ambulate frequently with staff, getting into the bathroom for toileting and walking out in the esquivel >/= 3 times daily as able. Subjective: ???My balance and strength is fine it is just the breathing.?? Objective: Pt seen for evaluation today. Pain: no actual or suspected pain Vital Signs: pt maintained SpO2 >95% during ambulation on 2L NC, after ambulation was going to trial ambulation on 1L NC but pt dropped to 89% shortly after decreasing supplemental oxygen while sitting and performing 1 sit <> stand so deferred weaning at this time At Rest With Activity SpO2 (2L NC) 97% 95% BP (MAP) 129/82mmHg 145/77mmHg HR 113bpm 120sbpm Mental Status: alert, oriented to person, place, and time Vision: WFL Skin: all visible skin intact, see non profit director for details Musculoskeletal: ROM: WFL Strength: WFL, B LEs at least 3+/5 Sensation: intact Bed Mobility: Supine to Sit: not assessed, pt received seated in beside recliner chair Sit to Supine: not assessed, pt left seated in bedside recliner chair Transfers: Sit to Stand: independent Stand to Sit: independent, good eccentric control Bed to bathroom: independent Gait: Distance: 150ft Device used: none Level of assist: Independent - supervision required only to monitor vitals and to manage lines Gait mechanics: pt demonstrated good gait speed, reciprocal gait pattern, no LOB Stairs: not assessed on initial evaluation Balance: Sitting Static: good Sitting Dynamic: good Standing Static: good Standing Dynamic / Gait: Good, no LOB noted during gait without AD Education: patient has been educated on Safety , Gait , Activity pacing/Energy conservation, Role of therapy and Discharge planning and verbalizes understanding. Patient status, treatment, and mobility recommendations discussed with nursing. Pt left seated in bedside recliner, all needs met, call monae in reach, on 2L NC. Assessment: Stacy Esparza was seen today for physical therapy evaluation. Pt is a 65 year old female with past medical history significant for hypothyroidism, CAD s/p PCI to RCA in 2012 c/b iCMP 25-30% who presented for planned outpatient cardiac catheterization in the setting of recent acute onsetof severe POZO 10 days ago with newly reduced EF 20-25% (from 53% on last check), ISR of the RCA lesion was noted. Cath procedure complicated by post-op flash pulmonary edema and respiratory failure requiring rescue BiPAP, since stabilized with nitro drip and IV diuresis. Pt presents at baseline functioning with good strength and balance, but is now requiring 2L NC supplemental oxygen d/t impairedgas exchange and endurance. Due to gas exchange impairment pt now has low activity tolerance/endurance and is unable to negotiate flight of stairs independently. The pt would benefit from 1-3 more skilled therapy sessions while in the hospital to maximize functional abilities, wean supplemental oxygen as appropriate, assess stair negotiation, and to assist with safe discharge home. Recommend pt discharge home after demonstrating ability to negotiate a flight of stairs with stable vitals and when medically ready with daily check-in (can be via phone call), no DME needs, and no follow up PT needs. Discharge Recommendations: Based on the current findings, Anticipated Discharge Disposition (PT): home with daily check in,other (see comments) (daily check in via phone call as needed) when medically ready for hospital discharge. Consult Recommendations: No other consults recommended at this time. Equipment needs: Anticipated Equipment Needs at Discharge (PT): None Goals: To be achieved by 03/03/21: 1. Pt. to demonstrate knowledge of safety limitations and precautions and will appropriately request assistance for functional activities and to mobilize. 2. Pt. to ambulate 150 feet independently with no AD, weaning supplemental oxygen as appropriate. 3. Pt. to ambulate up/down 15 step/stairs using one rail independently, with stable vitals and weaning supplemental oxygen as appropriate. Plan: Therapy Frequency (PT): 1-3 more times for therapy including balance training, gait training,patient/family education, postural re-education, stair training, strengthening and transfer training. Patient/family understand and agree with plan as stated above. 2017 PT Evaluation Code Rationale: ?? Diagnosis & Pertinent Co-Morbidities, personal factors, and present illness affecting Plan of Care: (see above); Additional personal factors or co- morbidities that impact plan: ?? Total # of Factors: 0 1-2 3+ x ?? Examination of body system impairments, functional limitations and behaviors, and/or participation restrictions. Addressing 1-2 elements Addressing 3 + elements x Addressing 4 + elements ?? Clinical presentation: See assessment above. Stable/Uncomplicated Evolving/Fluctuating Symptoms Unstable/Unpredictable x ?? Clinical decision making of low complexity based on pt's functional performance as outlined in this evaluation. Time IN / OUT: 3008-0912 Total Minutes, Physical Therapy: 22 Billing Code: Evaluation Natalie Murillo, PT Pager: [phone] Physical Therapy Inpatient Rehabilitation Department * Cornell Cruz RN - 02/23/2021 6:36 AM EST OUTCOME EVALUATION NOTE: OUTCOME SUMMARY: A&Ox4. No complaints of pain overnight. Maintained on 1 LPM overnight, SpO2 mid- 90%. 8 second run of SVT overnight, non-sustained, returned to baseline rhythm, team aware. PLAN MOVING FORWARD: Cardiac MRI today. INDIVIDUALIZED FALL PREVENTION INTERVENTIONS: Patient-specific fall risk factors per assessment: [current deficits]: Unfamiliar environment, telemetry wires, O2 tubing. Assistance [level of assistance required for transfers and ambulation]: Standby. Supervision [direct monitoring required during toileting and ADLs]: Standby. Surveillance [continuous indirect monitoring]: Telemetry, SpO2 Patient-specific fall prevention interventions for sensory deficits provided, if applicable: [X] Yes Bed in low position, call monae in reach, non-skid socks applied, Purposeful rounding. CPG GOAL OUTCOME EVALUATION: Ongoing. * Shalom Light MD - 02/23/2021 6:35 AM EST Inpatient Cardiology Progress Note Hospital Day 2 days Active Hospital Problems Diagnosis ??? CAD (coronary artery disease) Resolved Hospital Problems No resolved problems to display. ID: Ms. 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 24 Hour Events/Subjective: -No acute events overnight, vital stable, afebrile - from telemetry: 80-1 20s bpm, sinus tach, triplets occasionally, A. tach at 06 100 change in morphology, wide QRS -She reports hot flash yesterday morning, woke up with a headache which is rare for her -Otherwise denies any symptom, is feeling well ROS: Denies fevers/chills, chest pain, shortness of breath, diarrhea/vomiting/abdominal pain/constipation, muscle aches or weakness. Inpatient Medications: Scheduled Meds: ??? atorvastatin 80 mg Oral QPM ??? aspirin EC 81 mg Oral Daily ??? levothyroxine 150 mcg Oral Daily ??? liothyronine 10 mcg Oral Daily ??? sodium chloride 0.9 % (flush) 5 mL Intravenous BID ??? enoxaparin 40 mg Subcutaneous Nightly ??? famotidine 20 mg Oral BID ??? magnesium oxide 400 mg Oral BID ??? insulin lispro 1-5 Units Subcutaneous TID AC Continuous Infusions: PRN Meds: sodium chloride 0.9 % (flush), lidocaine, potassium chloride ER OR potassium chloride ER, glucose 40% oral geL OR dextrose 10% OR glucagon Vitals: Last value Range last 24 hrs Temperature Temp: 36.4 ??C (97.5 ??F) Temp: [36 ??C (96.8 ??F)-36.4 ??C (97.5 ??F)] Heart Rate Heart Rate: 98 Heart Rate: [86-103] Blood Pressure BP: 103/57 BP: (89-114)/(52-81) Respiratory Rate Resp: 24 Resp: [15-24] SpO2 SpO2: 95 % SpO2: [93 %-96 %] Ins/Outs: Intake/Output Summary (Last 24 hours) at 02/23/2021 0635 Last data filed at 02/23/2021 0400 Gross per 24 hour Intake 330 ml Output 1100 ml Net -770 ml Patient Vitals for the past 168 hrs: Weight 02/23/21 0451 69.8 kg (153 lb 14.1 oz) 02/22/21 0600 69.5 kg (153 lb 4.8 oz) 02/21/21 0954 66.7 kg (147 lb) Admit wt: 66.68 kg Physical Exam: Gen: NAD, A&Ox3, resting comfortably in chair Neuro: CN II-VII grossly intact; no focal deficits grossly noted. Alert and oriented to self, situation, and conversation. HEENT: PERRLA, EOMI, sclera anicteric. Neck: Supple, no appreciable LAD, no thyromegaly CVS: RRR with normal S1/S2, systolic murmur best heard at apex Pulm: occasional wet cough, bibasilar crackles, diffusely reduced breath sounds, particularly at bases. Abd: soft, NTND, normal bowel sounds, no abnormal masses or pulsations Ext: no edema/clubbing/cyanosis, peripheral pulses full and equal. Skin: Intact with no rashes, petechiae, or ecchymoses Laboratory: CBC: Recent Labs 02/23/21 0445 02/22/21 0515 02/21/21 1605 WBC 8.7 9.5 10.2* HGB 13.6 13.3 14.5 PLATELET 254 256 294 Chemistry: Recent Labs 02/23/21 0445 02/22/21 0515 02/21/21220402/21/21 1605 NA 142 140 142 140 K 4.2 4.2 3.9 3.8 CL 104 104 101 102 CO2 28 26 29 22 BUN 19* 22* 21* 21* CREATININE 0.81 0.90 1.07 0.99 GLUCOSE 109 104 -- 128 Recent Labs 02/23/21 0445 02/22/2115 02/21/21220402/21/21 1605 CALCIUM 9.1 8.7 9.4 9.6 MAGNESIUM 0.94 0.88 0.95 0.68* PHOS -- -- -- 5.1* LFT's: Recent Labs 02/22/21 1050 BILITOT 0.6 BILIDIR 0.2 ALBUMIN 4.2 ALKPHOS 74 ALT 52* AST 26 Coags: Recent Labs 02/21/21 1605 PT 13.1* INR 1.2 PTT 51* Cardiac enzymes: No results for input(s): TROPONINT, CK in the last 7068 hours. Endocrine: Recent Labs 02/21/21 1655 TSH 3.99 Heme: No results for input(s): LDH, HAPTOGLOBIN, URICACID in the last 168 hours. Microbiology: None Diagnostic Studies: Results for orders placed or performed during the hospital encounter of 02/21/21 XR Chest One View (Exam End: 02/21/2021 5:00 PM) Impression Severely enlarged cardiac silhouette; suspect combination of dilated cardiomyopathy and pericardial effusion. Thank you for letting us participate in the care of this patient. If you are a health care provider and have any questions regarding this report, please contact the number below. For patients who have questions please contact the health pet care technician that requested your imaging first. : ?? SUMMARY: ?? 1. The left ventricle is severely dilated. [...] is a small to moderate pericardial effusion. Assessment & Plan: Ms. 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 ?? LHC showed RESPIRATORY CARE INSTRUCTOR of RCA with good collateral flow, nonocclusive left-sided coronary disease. No intervention performed. ?? The etiology of her newly reduced EF is unclear. RCA RESPIRATORY CARE INSTRUCTOR aligns with her inferior akinesis, though her diffuse LV hypokinesis does not appear to be ischemic in nature, so we will proceed with workup and optimization of her GDMT. Ddx includes tachymyopathy (recent palpitations), ETOH (denies recent use), infectious (denies recent infectious symptoms), other. 02/23: Remains clinically improved, still wet on exam so we will diuresis judiciously today while adding beta-myrna and MRA. Plan for MRI today as we titrate GDMT. We will also discuss with endocrine regarding T3 supplementation, as this may be contributing to her arrhythmia. Plan for ziopatch on discharge. ?? PLAN: ?? #Flash pulmonary edema #HFrEF, acute exacerbation #Dilated cardiomyopathy of unclear etiology -vitamin D, iron studies, TSH, lyme, HIV wnl -further workup as outpatient -tele -resume metoprolol 12.5mg q6h (from 50 bid at home) -start spironolactone 12.5mg daily (stop K supplement) -plan to start valsartan 20mg bid tomorrow in anticipation of entresto as outpatient -cardiac MRI -work with case management associate to get insurance coverage so she can get entresto and sglt2i -plan to follow up with Dr. Reddy ЕКАТЕРИНА in 2 weeks #Mild-moderate pericardial effusion Seen on TTE, was mild per read from [facility] 1 week ago. Unclear etiology, though most likely her chronic severe HFrEF. No indication for drainage now, as she is stable.? #CAD s/p RCA stent in 2013 -s/p C, no indication for intervention -continue home ASA 81 -continue home lipitor 80 ?? Chronic problems: ?? #DM2 -hold home metformin -AC and HS checks ?? #Hypothyroid -continue home L-thyroxine (50mcg per daughter after checking with pharmacy) -stop home liothyronine per endocrinology curbside -TSH and T4 within normal limits, T3 unreliable in setting of acute illness -Follow up outpatient for check in 4-6 weeks and titrate as outpatient #Gout -ntd ? Other: - DVT prophylaxis: lovenox - GI prophylaxis: n/a - Diet: cardiac diet - Code Status: full code - Dispo:pending clinical status Shalom Mooney MD PGY1 Cardiology 02/23/21 Associated attestation - Alisa De Leon MD - 02/23/2021 5:52 PM EST Cardiology Attending Attestation I was the assigned attending child protection specialist for this clinical encounter. For the purposes of billing,I was directly involved in the clinical decision making and the plan of care is reasonable. Please see my separate attending note from today for additional details. Alisa Reddy MD MPH [facility] Attending 02/23/2021, 5:52 PM * Fredy Bolanos OT - 02/22/2021 3:50 PM EST Occupational Therapy Evaluation Patient profile: Stacy Esparza is a 65 y.o. female admitted on 02/21/2021 With h/o CAD s/p PCI to RCA in 2012 c/b iCMP 25-30% who p/w worsening SOB and persistent POZO last week. 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 After procedure she developed flash pulmonary edema and respiratory failure requiring BiPAP. Taken to [facility] for IV diuresis + IV TNG. History reviewed. No pertinent past medical history. History reviewed. No pertinent surgical history. Social History: Patient lives alone. 2 daughters live over 2 hours away. Pt reports she has friends although she istypically the person to help others. Home Setup: [address] apartment; one level; small shower stall-unable to place a seat; standard toilet DME: none Baseline ADL/Mobility: Independent with ADL's, IADL's, mobility without a device and driving 2 weeks prior to admission. The last couple of weeks, pt's POZO became increasingly worse, to the point shewas unable to shower and had to sit to rest when ambulating from room to room. She was using oxygenpurchased from [employer] due to significant POZO. Precautions/Special Considerations: risk to fall; monitor oxygen saturation with activity Subjective: I am surprised how good it felt to walk. Objective: Seen today for OT evaluation and energy conservation and PLB instruction with the pt's daughter present throughout. Cognitive Status/Behavior: ?? Behavior / Mood: alert and cooperative ?? Alert and oriented to: person, place, time and situation ?? Follows commands: 100% of the time ?? Attention: WFL ?? Safety awareness: cues for pacing, not to perez and to take standing rest break ?? Pt sharing her traumatic experience yesterday during the procedure, the inability to breath. Tearful when discussing this. Vision & Perception: ?? WNL/WFL Communication: WFL Range of motion, strength, coordination: Hand dominance: right Bilateral UEs are within functional limitations LE limitations: WFL Sensation: intact to touch Activities of Daily Living: instructed in energy conservation techniques for ADL's and PLB with tasks Self-feeding: independent Grooming: set-up and supervision standing at the sink Dressing: set-up and supervision after instructed in energy conservation; cues for pacing Bathing: anticipate pt can perform; recommend sitting as needed for energy conservation Toileting: Transfer: supervision Hygiene: independent Functional Mobility: Supine to sit: NT; pt sitting in chair Sit to stand: supervision Ambulation: supervision pushing rolling oxygen cart; cues for pacing, rest break with POZO and PLB Stand to sit: supervision Sit to supine: NT; pt returned to chair Balance: Sitting balance: good Standing balance:good Vitals: 1-2 liters oxygen At Rest With Activity SpO2 88-90% RA 91-94% 1 L oxygen 86-88% RA 91-94% 1-2L oxygen Heart Rate 90's 105 Blood Pressure 105/64 NT Pain: reported hurting all over; did not rate on the pain scale Skin: PIV L UE Education: family and patient have been educated on Role of occupational therapy/rehabilitation, Assistive device/technique, ADL, Breathing exercises, Safety, Functional Mobility, Activity pacing/Energy conservation, Home Management, Recommendations and Discharge planning and verbalize understanding. Reviewed energy conservation techniques for IADL's. Patient status, treatment, and mobility recommendations discussed with nursing. Assessment: Pt has been seen for occupational therapy evaluation. Stacy Esparza presents with the following performance skill deficits and client factors: increased pain, decreased activity tolerance and decreased cardiopulmonary tolerance to activity. These performance deficits have led to activity limitations and participation restrictions in the following areas of occupation: dressing, bathing, grooming, toileting, transfers/mobility, home management, driving and community mobility. Pt able to perform sink side ADL tasks and ambulate pushing the oxygen cart on 1-2 liters of oxygen to maintain her oxygen saturation at least 90%. On RA, her oxygen saturations decreased to 86-88% with activity. Pt experiencing mild POZO with activity. Pt instructed in PLB and energy conservation techniques. She will benefit from one more session to review the techniques and how to utilize them with functional activities. Anticipate pt may need assistance with IADL's initially when discharged. The pt's daughter reports that the pt has friends who would probably be able to assist. Anticipate pt will discharge homewith supports when medically ready.. Equipment needs at discharge: none Anticipated Discharge Disposition (OT): home Other Recommendations: ?? Encourage up in the chair for meals ?? Encourage ambulating to the bathroom for toileting and sinkside ADL's; encourage PLB and pacing when performing ADL tasks ?? Encourage ambulation outside of the room with supervision , utilizing PLB and rest breaks as needed Other Recommendations: No other consults recommended at this time Goals: To be achieved by 02/26/21. 1. Pt will be able to state 2-3 energy conservation techniques for ADL's and mobility and utilize the techniques independently. 2. Pt will perform PLB and take rest breaks as needed without cues when performing ADL tasks and mobilizing. Plan: OT: Therapy Frequency (OT): 1-2 more times Planned OT interventions: ADL, Breathing exercises, Activity pacing/Energy conservation, Recommendations and Discharge planning. Total Minutes, Occupational Therapy: 50 (Jane, SCHM x 2 (3:50-4:30)) 2017 OT Evaluation Code Rationale: ?? Diagnosis & Pertinent Co-Morbidities affecting Plan of Care: see PMHx ?? Occupational Profile & Client History: Brief Expanded Extensive x ?? Assessment of Occupational Performance: 1-3 performance deficits 3-5 performance deficits 5 + performance deficits x ?? Clinical Decision Making: Low Moderate High x Clinical decision making of high complexity using standardized patient assessment instrument and measurable assessment of functional outcome. Pager: [phone] FREDY BOLANOS OT 02/22/2021 Occupational Therapy Rehabilitation Department * Alisa De Leon MD - 02/22/2021 9:47 AM EST Cardiology Critical Care Service (ICU) Attending Daily Progress Note Patient: Stacy Esparza : 1955 Date of Admission: 02/21/2021 Reason for Admission: Hypoxic respiratory failure LOS: 1 Please see today's progress note from primary team for full details but in brief: Interval Events: Afebrile HR 70-80's BP 80-100/60's 94% on 1L NC TBB -1.9L CBC stable K 4.2, Cre 0.90 Home Medications: No current facility-administered medications on file prior to encounter. Current Outpatient Medications on File Prior to Encounter Medication Sig Dispense Refill UNABLE TO FIND daily. N-Acetylcysteine ergocalciferoL, vitamin D2, (vitamin D2) 50,000 unit Capsule Take 50,000 Units by mouth once a week. metFORMIN (GLUCOPHAGE) 1,000 mg Tablet Take 1,000 mg by mouth 2 times daily (with meals). simvastatin (ZOCOR) 20 mg tablet Take 20 mg by mouth nightly. levothyroxine (SYNTHROID) 50 mcg tablet Take 150 mcg by mouth daily. liothyronine (CYTOMEL) 5 mcg tablet Take 10 mcg by mouth daily. furosemide (LASIX) 80 mg tablet Take 80 mg by mouth every morning. metoprolol tartrate (LOPRESSOR) 50 mg tablet Take 100 mg by mouth daily. aspirin 81 mg EC tablet Take 81 mg by mouth daily. multivitamin (THERAGRAN) tablet Take 1 tablet by mouth daily. losartan (Cozaar) 25 mg Tablet Take 25 mg by mouth daily. Has not started yet, recently presribed allopurinoL (Zyloprim) 100 mg Tablet Take 100 mg by mouth as needed (for Gout attacks). nitroGLYcerin (NITROSTAT) 0.[address] 1 tablet under the tongue daily as needed for Chest pain. 90 tablet 3 furosemide (LASIX) 40 mg tablet Take 40 mg by mouth every evening. Current Medications: Scheduled Meds: magnesium sulfate 2 g Intravenous Once allopurinoL 100 mg Oral Daily aspirin EC 81 mg Oral Daily levothyroxine 150 mcg Oral Daily liothyronine 10 mcg Oral Daily simvastatin 20 mg Oral Nightly sodium chloride 0.9 % (flush) 5 mL Intravenous BID enoxaparin 40 mg Subcutaneous Nightly famotidine 20 mg Oral BID magnesium oxide 400 mg Oral BID insulin lispro 1-5 Units Subcutaneous TID AC furosemide 80 mg Intravenous Once Continuous Infusions: PRN Meds:.sodium chloride 0.9 % (flush), lidocaine, potassium chloride ER OR potassium chlorideER, glucose 40% oral geL OR dextrose 10% OR glucagon Vitals: Last value Range last 24 hrs Temperature Temp: 36 ??C (96.8 ??F) Temp: [36 ??C (96.8 ??F)-36.9 ??C (98.4 ??F)] Heart Rate Heart Rate: 86 Heart Rate: [82-117] Blood Pressure BP: (!) 89/60 BP: (89-176)/(60-107) Respiratory Rate Resp: 21 Resp: [13-27] SpO2 SpO2: 94 % SpO2: [90 %-100 %] Art BP BP (Arterial Line): -- Weight: Patient Vitals for the past 168 hrs: Weight 02/22/21 0600 69.5 kg (153 lb 4.8 oz) 02/21/21 0954 66.7 kg (147 lb) Weight change: In/Out: Intake/Output Summary (Last 24 hours) at 02/22/2021 0947 Last data filed at 02/22/2021 0600 Gross per 24 hour Intake 742 ml Output 2725 ml Net -1983 ml Physical Exam: General: NAD Neck: JVP unable to appreciate Cardiac: PMI nondisplaced, RRR w/o mrg Chest: CTAB Abdomen: Soft NT ND, +BS Extremities: WWP w/ no sig edema Neuro: AxOx3 Skin: No rashes observed Investigations: Recent Results (from the past 24 hour(s)) Prothrombin Time Result Value Ref Range PT 13.1 (H) 9.4 - 12.5 sec INR 1.2 APTT Result Value Ref Range PTT 51 (H) 25 - 37 sec Basic Metabolic Panel (non-fasting) Result Value Ref Range Glucose Lvl 128 65 - 199 mg/dL BUN 21 (H) 8 - 18 mg/dL Creatinine 0.99 0.70 - 1.20 mg/dL Sodium 140 135 - 145 mmol/L Potassium 3.8 3.5 - 5.0 mmol/L Chloride 102 98 - 107 mmol/L CO2 22 22 - 31 mmol/L Anion Gap 16 (H) 5 - 15 mmol/L Calcium 9.6 8.5 - 10.5 mg/dL Estimated GFR 59 (L) >=60 mL/min/1.73 m?? Magnesium Result Value Ref Range Magnesium 0.68 (L) 0.69 - 1.07 mmol/L Phosphorus Result Value Ref Range Phosphorus 5.1 (H) 2.5 - 4.5 mg/dL ABO/Rh Typing Result Value Ref Range ABORh Type A Pos Antibody screen Result Value Ref Range Ab Screen Interp Negative Expires at 2359 on: 02/24/2021 Hemogram Result Value Ref Range WBC 10.2 (H) 4.0 - 9.5 x10(3)/mcL RBC 4.74 4.00 - 5.21 x10(6)/mcL Hemoglobin 14.5 11.7 - 15.5 g/dL Hematocrit 43.1 35.7 - 45.8 % MCV 90.9 82.6 - 94.4 fL MCH 30.6 27.1 - 32.0 pg MCHC 33.6 31.7 - 35.0 g/dL Platelets 294 145 - 357 x10(3)/mcL RDWSD 47.9 (H) 37.0 - 46.0 fL RDWCV 14.5 (H) 11.5 - 14.1 % MPV 9.0 7.6 - 12.9 fL nRBC % Auto 0.0 % nRBC Abs Auto 0.000 0.000 - 0.000 x10(3)/mcL Differential, Automated Result Value Ref Range Neutrophils % 60.4 % Neutr Abs (ANC) 6.17 (H) 1.70 - 6.10 x10(3)/mcL Lymphocytes % 31.3 % Lymphocytes Abs 3.2 0.9 - 3.2 x10(3)/mcL Monocytes % 6.3 % Monocyte Abs 0.6 0.3 - 0.9 x10(3)/mcL Eosinophils % 1.1 % Eosinophils Abs 0.1 0.0 - 0.4 x10(3)/mcL Basophils % 0.6 % Basophils Abs 0.1 0.0 - 0.1 x10(3)/mcL Immature Gran % 0.30 % Nelida Gran Abs 0.03 0.00 - 0.04 x10(3)/mcL ABORH Recheck Status Result Value Ref Range ABORH Recheck Order Order Placed ABORH Type Recheck Complete Type and Screen Validity Result Value Ref Range T&S only valid at [facility] POCT Glucose Result Value Ref Range POC Glucose 124 65 - 199 mg/dL Lactate, whole blood, send to lab ([facility]) Result Value Ref Range Lactate WB 1.5 0.5 - 2.2 mmol/L TSH Rabun Result Value Ref Range TSH 3.99 0.27 - 4.20 mcIU/mL Ferritin Result Value Ref Range Ferritin 145 30 - 400 ng/mL Iron and TIBC Result Value Ref Range Iron 60 30 - 150 mcg/dL TIBC 343 250 - 450 mcg/dL Iron Saturation 17 (L) 20 - 50 % Vitamin D, 25-Hydroxy Result Value Ref Range 25-OH Vit D Total 57 21 - 100 ng/mL 25-OH Vit D Interp Sufficient Vitamin B12 Result Value Ref Range Vitamin B-12 302 232 - 1,245 pg/mL Folate, serum Result Value Ref Range Folate Lvl >20.0 4.8 - 24.2 ng/mL BMP w/fasting Glucose Result Value Ref Range Glucose Fasting 125 (H) 65 - 99 mg/dL BUN 21 (H) 8 - 18 mg/dL Creatinine 1.07 0.70 - 1.20 mg/dL Sodium 142 135 - 145 mmol/L Potassium 3.9 3.5 - 5.0 mmol/L Chloride 101 98 - 107 mmol/L CO2 29 22 - 31 mmol/L Anion Gap 12 5 - 15 mmol/L Calcium 9.4 8.5 - 10.5 mg/dL Estimated GFR 54 (L) >=60 mL/min/1.73 m?? Magnesium Result Value Ref Range Magnesium 0.95 0.69 - 1.07 mmol/L POCT Glucose Result Value Ref Range POC Glucose 128 65 - 199 mg/dL COVID-19 PCR Specimen: Nasopharyngeal Swab Symptoms->Surveillance Result Value Ref Range SARS-CoV-2 RNA PCR Not Detected Not Detected SARS-CoV-2 Source YARD CLERK Swab Basic Metabolic Panel (non-fasting) Result Value Ref Range Glucose Lvl 104 65 - 199 mg/dL BUN 22 (H) 8 - 18 mg/dL Creatinine 0.90 0.70 - 1.20 mg/dL Sodium 140 135 - 145 mmol/L Potassium 4.2 3.5 - 5.0 mmol/L Chloride 104 98 - 107 mmol/L CO2 26 22 - 31 mmol/L Anion Gap 10 5 - 15 mmol/L Calcium 8.7 8.5 - 10.5 mg/dL Estimated GFR 67 >=60 mL/min/1.73 m?? Magnesium Result Value Ref Range Magnesium 0.88 0.69 - 1.07 mmol/L Hemogram Result Value Ref Range WBC 9.5 4.0 - 9.5 x10(3)/mcL RBC 4.42 4.00 - 5.21 x10(6)/mcL Hemoglobin 13.3 11.7 - 15.5 g/dL Hematocrit 40.4 35.7 - 45.8 % MCV 91.4 82.6 - 94.4 fL MCH 30.1 27.1 - 32.0 pg MCHC 32.9 31.7 - 35.0 g/dL Platelets 256 145 - 357 x10(3)/mcL RDWSD 48.1 (H) 37.0 - 46.0 fL RDWCV 14.4 (H) 11.5 - 14.1 % MPV 9.2 7.6 - 12.9 fL nRBC % Auto 0.0 % nRBC Abs Auto 0.000 0.000 - 0.000 x10(3)/mcL Differential, Automated Result Value Ref Range Neutrophils % 59.5 % Neutr Abs (ANC) 5.65 1.70 - 6.10 x10(3)/mcL Lymphocytes % 29.8 % Lymphocytes Abs 2.8 0.9 - 3.2 x10(3)/mcL Monocytes % 8.7 % Monocyte Abs 0.8 0.3 - 0.9 x10(3)/mcL Eosinophils % 1.3 % Eosinophils Abs 0.1 0.0 - 0.4 x10(3)/mcL Basophils % 0.5 % Basophils Abs 0.0 0.0 - 0.1 x10(3)/mcL Immature Gran % 0.20 % Nelida Gran Abs 0.02 0.00 - 0.04 x10(3)/mcL POCT Glucose Result Value Ref Range POC Glucose 133 65 - 199 mg/dL Relevant Cardiac Tests: TTE pending Cath with RESPIRATORY CARE INSTRUCTOR of RCA LVEDP 40 Assessment: 65 y.o. year old female w/ h/o CAD s/p PCI to RCA in 2012 c/b iCMP 25-30% who p/w worsening SOB andpersistent POZO last week. 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 After procedure she developed flash pulmonary edema and respiratory failure requiring BiPAP.Taken to [facility] for IV diuresis + IV TNG. Plan: 1. TBB -500 to -1L w/ lasix 40mg IV 2. Holding BB 3. F/u TTE ? Effusion Attestation of Critical Illness Is there a high potential of sudden, clinically significant, or life threatening deterioration? Yes Is there a need for direct personal assessment and management to treat/prevent multiple vital organfailure/deterioration? Yes Cardiology Team providing Critical Care Services ARDS PA Catheter Hyponatremia X Hypoxemic Resp Failure Cardiogenic Shock Hypernatremia Pneumonia req Ventilator Acute Myocardial Infarction Hyperkalemia Hypercarbic Resp Failure Subarachnoid Hemorrhage Acute Drug Ingestion / OD Respiratory Acidosis Traumatic Brain Injury Acute Renal Failure Acute Resp Failure Coma Acute Liver Failure Metabolic Acidosis Stupor Thrombocytopenia Hypotension, Fluids Delirium Neutropenia Hypotension, Pressors Acute Encephalopathy Hypertensive Emergency Sepsis Ascites Req Treatment Malnutrition Septic Shock with SIRS Coagulopathy Req Treatment Anaphylaxis Active Hemorrhage I personally performed 45 minutes of aggregate critical care time exclusive of procedures and teaching. This includes time spent during direct patient evaluation and reassessment, interpreting diagnostic tests, directing life and/or organ supporting interventions and documentation on the unit. Alisa Reddy MD MPH Advanced Heart Disease & Cardiac Transplant Attending 02/22/2021, 9:47 AM * Shalom Light MD - 02/22/2021 9:19 AM EST Inpatient Cardiology Progress Note Hospital Day 1 day Active Hospital Problems Diagnosis ??? CAD (coronary artery disease) Resolved Hospital Problems No resolved problems to display. ID: Ms. 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 24 Hour Events/Subjective: -Stabilized with rescue BiPAP yesterday after flash pulmonary edema in the [place] in the setting of hypertension and receiving 600cc fluid. Baseline dilated cardiomyopathy with functional MR. -Net -2 L at midnight, not dosed again IV Lasix, also soft pressures -Vital signs stable, afebrile, satting well on room air after weaned from BiPAP -Subjectively she reports intermittent palpitations with started 2 to 3 weeks ago as well as hot flashes above the neck. -She reports her thyroid has was increased on January 13, unclear whether this was levothyroxine orliothyronine ROS: Denies fevers/chills, chest pain, shortness of breath, diarrhea/vomiting/abdominal pain/constipation, muscle aches or weakness. Inpatient Medications: Scheduled Meds: ??? magnesium sulfate 2 g Intravenous Once ??? allopurinoL 100 mg Oral Daily ??? aspirin EC 81 mg Oral Daily ??? levothyroxine 150 mcg Oral Daily ??? liothyronine 10 mcg Oral Daily ??? simvastatin 20 mg Oral Nightly ??? sodium chloride 0.9 % (flush) 5 mL Intravenous BID ??? enoxaparin 40 mg Subcutaneous Nightly ??? famotidine 20 mg Oral BID ??? magnesium oxide 400 mg Oral BID ??? insulin lispro 1-5 Units Subcutaneous TID AC ??? furosemide 80 mg Intravenous Once Continuous Infusions: PRN Meds: sodium chloride 0.9 % (flush), lidocaine, potassium chloride ER OR potassium chloride ER, glucose 40% oral geL OR dextrose 10% OR glucagon Vitals: Last value Range last 24 hrs Temperature Temp: 36 ??C (96.8 ??F) Temp: [36 ??C (96.8 ??F)-36.9 ??C (98.4 ??F)] Heart Rate Heart Rate: 86 Heart Rate: [82-117] Blood Pressure BP: (!) 89/60 BP: (89-176)/(60-107) Respiratory Rate Resp: 21 Resp: [13-27] SpO2 SpO2: 94 % SpO2: [90 %-100 %] Ins/Outs: Intake/Output Summary (Last 24 hours) at 02/22/2021 0919 Last data filed at 02/22/2021 0600 Gross per 24 hour Intake 742 ml Output 2725 ml Net -1983 ml Patient Vitals for the past 168 hrs: Weight 02/22/21 0600 69.5 kg (153 lb 4.8 oz) 02/21/21 0954 66.7 kg (147 lb) Admit wt: 66.68 kg Physical Exam: Gen: NAD, A&Ox3, resting comfortably in chair Neuro: CN II-VII grossly intact; no focal deficits grossly noted. Alert and oriented to self, situation, and conversation. HEENT: PERRLA, EOMI, sclera anicteric. Neck: Supple, no appreciable LAD, no thyromegaly CVS: RRR with normal S1/S2, systolic murmur best heard at apex Pulm: occasional wet cough, bibasilar crackles, diffusely reduced breath sounds, particularly at the R-base. Abd: soft, NTND, normal bowel sounds, no abnormal masses or pulsations Ext: no edema/clubbing/cyanosis, peripheral pulses full and equal. Skin: Intact with no rashes, petechiae, or ecchymoses Laboratory: CBC: Recent Labs 02/22/21 0515 02/21/21 1605 02/21/21 0753 WBC 9.5 10.2* 10.7* HGB 13.3 14.5 14.7 PLATELET 256 294 278 Chemistry: Recent Labs 02/22/21 0515 02/21/21 22002/21/21 1605 NA 140 142 140 K 4.2 3.9 3.8 CL 104 101 102 CO2 26 29 22 BUN 22* 21* 21* CREATININE 0.90 1.07 0.99 GLUCOSE 104 -- 128 Recent Labs 02/22/21 0515 02/21/21220402/21/21 1605 CALCIUM 8.7 9.4 9.6 MAGNESIUM 0.88 0.95 0.68* PHOS -- -- 5.1* LFT's: No results for input(s): BILITOT, BILIDIR, ALBUMIN, ALKPHOS, ALT, AST in the last 7068 hours. Coags: Recent Labs 02/21/21 1605 PT 13.1* INR 1.2 PTT 51* Cardiac enzymes: No results for input(s): TROPONINT, CK in the last 7068 hours. Endocrine: Recent Labs 02/21/21 1655 TSH 3.99 Heme: No results for input(s): LDH, HAPTOGLOBIN, URICACID in the last 168 hours. Microbiology: None Diagnostic Studies: Results for orders placed or performed during the hospital encounter of 02/21/21 XR Chest One View (Exam End: 02/21/2021 5:00 PM) Impression Severely enlarged cardiac silhouette; suspect combination of dilated cardiomyopathy and pericardial effusion. Thank you for letting us participate in the care of this patient. If you are a health care provider and have any questions regarding this report, please contact the number below. For patients who have questions please contact the health pet care technician that requested your imaging first. Assessment & Plan: Ms. 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 ?? LHC showed RESPIRATORY CARE INSTRUCTOR of RCA with good collateral flow, nonocclusive left-sided coronary disease. No intervention performed. ?? The etiology of her newly reduced EF is unclear. RCA RESPIRATORY CARE INSTRUCTOR aligns with her inferior akinesis, though her diffuse LV hypokinesis does not appear to be ischemic in nature, so we will proceed with workup and optimization of her GDMT. Ddx includes tachymyopathy (recent palpitations), ETOH (denies recent use), infectious (denies recent infectious symptoms), other. 02/22: Clinically much improved after starting on nitro drip and diuresis of net negative 2 L ([id number] mg IV Lasix). Now with severely dilated cardiomyopathy on chest x-ray and preliminary TTE results with ? pericardial effusion, we will await formal echo read prior to further diuresis given her soft pressures. She remains wet on exam this morning though she is satting well on room air. ?? PLAN: Admit to Cardiology, S2 Team Pager # [phone] ?? #Flash pulmonary edema #HFrEF, acute exacerbation #Dilated cardiomyopathy of unclear etiology -Follow-up TTE results -vitamin D, iron studies, TSH -tele -hold home metoprolol for now in setting of low blood pressures -hold home losartan for now in setting of low pressures -Consider work-up for additional etiologies, including infectious -cardiac MRI ? #CAD s/p RCA stent in 2012 -s/p LHC, no indication for intervention -continue home ASA 81 -continue home lipitor 80 ?? Chronic problems: ?? #DM2 -hold home metformin -AC and HS checks ?? #Hypothyroid -continue home L-thyroxine (dose unknown) -TSH within normal limits, check free T4 and T3 #Gout -ntd ? Other: - DVT prophylaxis: lovenox - GI prophylaxis: n/a - Diet: cardiac diet - Code Status: full code - Dispo:pending clinical status Shalom Mooney MD PGY1 Cardiology 02/22/21 Associated attestation - Alisa De Leon MD - 02/23/2021 1:26 PM EST Cardiology Attending Attestation I was the assigned attending child protection specialist for this clinical encounter. For the purposes of billing,I was directly involved in the clinical decision making and the plan of care is reasonable. Please see my separate attending note from today for additional details. Alisa Reddy MD MPH Advanced Heart Disease & Cardiac Transplant Attending 02/23/2021, 1:26 PM * Cornell Valencia RT - 02/21/2021 7:45 PM EST Called to cath patient having significant ^WOB while laying flat, placed on Bipap settings ^ several times as high as 16/10 60%, able to wean back to nasal cannula in the unit after being diuresed. RT Rekha * Marixa Hernandez MD - 02/21/2021 4:02 PM EST Cardiovascular Critical Care Attending Note Stacy Esparza 1955 Age: 65 y.o. PCP: Angela Cotto MD Date of Service: 02/21/2021 Date of Admission: 02/21/2021 Length of Stay Hospital Day 0 days Patient ID: Stacy Esparza is a 65 y.o. female with a history of mixed dilated ischemic and non-ischemic cardiomyopathy with recent decrement in LVEF (degree of CM out of proportion to ASCVD), severe functional MR on recent TTE, ASCVD w/ prior RCA disease and intervention, obesity, active smoking, pre-diabetes and hypothyroidism who presented for outpatient diagnostic catheterization and went intorespiratory distress likely secondary to flash pulmonary edema in the setting of elevated LVEDP (45), known severe MR and hypertension. The patient was seen and examined on critical care rounds. Stacy Esparza is a 65 y.o. female with the following active issues: ?? Acute respiratory distress / hypoxic respiratory failure / flash pulmonary edema ?? Mixed ischemic cardiomyopathy and dilated non-ischemic cardiomyopathy / acute on chronic systolic heart failure ?? Severe functional mitral regurgitation ?? ASCVD with chronically totally occluded RCA MEDICATIONS: Scheduled Meds: ??? allopurinoL 100 mg Oral Daily ??? aspirin EC 81 mg Oral Daily ??? levothyroxine 150 mcg Oral Daily ??? liothyronine 10 mcg Oral Daily ??? simvastatin 20 mg Oral Nightly ??? sodium chloride 0.9 % (flush) 5 mL Intravenous BID ??? enoxaparin 40 mg Subcutaneous Nightly ??? famotidine 20 mg Oral BID Continuous Infusions: EXAM: Last value Range last 24 hrs Temperature Temp: 36.9 ??C (98.4 ??F) Temp: [36.9 ??C (98.4 ??F)] Heart Rate Heart Rate: 100 Heart Rate: [90-117] Blood Pressure BP: 126/76 BP: (124-176)/(76-107) Respiratory Rate Resp: 20 Resp: [14-22] SpO2 SpO2: 98 % SpO2: [90 %-100 %] Art BP BP (Arterial Line): -- Weights: Patient Vitals for the past 168 hrs: Weight 02/21/21 0954 66.7 kg (147 lb) Gen- Older lady, appearing more comfortable on BiPAP HEENT- BiPAP mask in place CV- Tachycardic, regular Pulm- Tachypneic/increased WOB, scant crackles, no wheeze Abd- Obese, benign Ext- WWP, mild pedal edema Neuro- Alert, answering questions appropriately Psych- No acute issues Skin- Warm, non-diaphoretic, no rashes on limited exam Lines- PIVs, Cruz ASSESSMENT, MANAGEMENT, and DECISION MAKINyoF in the poultry farm laborer for diagnostic outpatient cath in work-up of new reduction in LVEF who went into acute respiratory distress likely secondary to flash pulmonary edema in the setting of hypervolemia (LVEDP 45) and severe MR worsened by hypertension. Currently improving with aggressive titrationof BiPAP parameters, IV furosemide and NTG gtt with blood pressure lowering. Neuro- APAP prn pain Cardiovascular- Continue NTG for strict BP control and offloading of ventricle. Administer IV lasixfor aggressive net negative target 2-3L overnight. Will add afterload reduction and GDMT pending initial response. Formal TTE okay for tomorrow. RCA RESPIRATORY CARE INSTRUCTOR noted; favor medical management for now. Will discuss revasc once patient more clinically stable as I do not suspect ischemia is meaningfully contributing to her flash event. Continue simvastatin (consider transition to high potency/high dose therapy) and ASA 81 Pulmonary- Continue BiPAP for now. Wean as tolerated once net negative and BP controlled. FEK- S/p furosemide 40mg IV then 80mg IV, redose as needed for goal net negative 2-3L by morning. Replete lytes as needed. Would check K overnight given aggressive diuresis. GI- Famotidine. NPO for now. ID- No acute issues. Heme- Enoxaparin for DVT ppx Endo- Continue home liothyronine/levothyroxine. Check TSH and HA1c Psych- No acute issues IS THE PATIENT CRITICALLY ILL? Is there a high potential of sudden, clinically significant, or life threatening deterioration? Yes Is there a need for direct personal assessment and management to treat/prevent multiple vital organfailure/deterioration? Yes If this patient is not critically ill, the reason for continued hospitalization is NA. PATIENT IS CRITICALLY ILL WITH THESE DIAGNOSES BEING MANAGED BY Cardiology team providing critical care services ARDS PA Catheter Hyponatremia X Hypoxemic Resp Failure Cardiogenic Shock Hypernatremia Pneumonia req Ventilator Acute Myocardial Infarction Hyperkalemia Hypercarbic Resp Failure Subarachnoid Hemorrhage Acute Drug Ingestion / OD Respiratory Acidosis Traumatic Brain Injury Acute Renal Failure X Acute Resp Failure Coma Acute Liver Failure Metabolic Acidosis Stupor Thrombocytopenia Hypotension, Fluids Delirium Neutropenia Hypotension, Pressors Acute Encephalopathy Hypertensive Emergency Sepsis Ascites Req Treatment Malnutrition Septic Shock with SIRS Coagulopathy Req Treatment Anaphylaxis Active Hemorrhage I personally performed 45 minutes of aggregate critical care time exclusive of procedures and teaching. This includes time spent during direct patient evaluation and reassessment, interpreting diagnostic tests, directing life and/or organ supporting interventions and documentation on the unit. Marixa Hernandez MD 02/21/2021 documented in this encounter H&P Notes * Alisa De Leon MD - 02/21/2021 4:07 PM EST Cardiology Attending Addendum I was the assigned attending child protection specialist for this clinical encounter. For the purposes of billing,I was directly involved in the clinical decision making and the plan of care is reasonable. Please see the separate full admission note from the team for full details, in brief: Stacy Esparza is a 65 y.o. year old female w/ h/o CAD s/p PCI to RCA in 2012 c/b iCMP 25-30% who p/w worsening SOB and persistent POZO last week. 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 After procedure she developed flash pulmonary edema and respiratory failure requiring BiPAP. Taken to [facility] for IV diuresis. HR 100's, BP 120-130's/70-80's 99% on BiPAP CBC stable, HCT 44, Cre 1.08, K 4.6 Home meds: lasix 80/40mg, metop 100mg QD, asa, losartan 25mg QD Recommendations: 1. IV diuresis (has gotten 120mg IV lasix) 2. Hold BB until optivolemic, then restart metop tartrate 25mg q6h 3. Will optimize HF meds and likely obtain cMR and nonischemic work up Thank you for allowing us to participate in the care of this patient. For any additional questions,my pager is #[phone]. Alisa Reddy MD [facility] Advanced Heart Disease & Cardiac Transplant Attending 02/21/2021, 4:07 PM * Shalom Light MD - 02/21/2021 3:33 PM EST Images from the original note were not included. Cardiovascular Medicine Admission History and Physical Patient Name: Stacy Esparza Service: Cardiology S2 Team Responsible Attending: Alisa Reddy MD MPH PCP: Angela Cotto MD PCP phone #: [phone] ID/Chief Complaint: Flash pulmonary edema, acute HFrEF exacerbation History of Present Illness: Stacy Esparza is 65F with history of CAD (stents to the RCA in 2012) and ischemic cardiomyopathy s/p improvement in EF to 52% who presents with worsening shortness of breath since last week without chest pain. Has had persistent POZO and palpitations. Recent TTE showing LVEF 25 to 30% with a severely dilated LV with diffuse hypokinesis and apical akinesis. [facility] today as outpatient procedure showed in-stent RESPIRATORY CARE INSTRUCTOR of RCA and nonocclusive left coronary disease, without indication for intervention. During the procedure she received approximately 600cc fluid and developed acute hypoxic respiratory failure requiring rescue bipap. She was given 40mg IV lasix plus 80mg IV lasix, with continued respiratory distress on bipap, and was admitted to the [facility] for further diuresis and management. She reports 10 days of progressive POZO with minimal exertion, which is an acute worsening from her baseline. She presented to her outpatient child protection specialist ([facility]), TTE showed reduced EF of 20-25% (from 53% in 2013) with diffuse hypokinesis and akinesis of the apex, as well assevere functional MR. She was started on losartan 25mg daily and her metoprolol dose was doubled to 50 BID. She reports associated palpitations. She denies chest pain, denies lower extremity edema. History otherwise notable for ongoing smoking She denies any recent infectious symptoms including cough, URI symptoms. Also denies fever/chills/ns. Also denies GI or urinary symptoms. Current meds as follows (per outpt cards note): -Tylenol 325 as needed -1-2 aleve per day for back -ASA 81 -Atorvastatin 80 -Vitamin D 50,000 units weekly -Co-Q10 100 mg -not usually -Furosemide 80 mg every morning -Levothyroxine unknown dose (150mcg per care everywhere) -Metoprolol succinate 50 mg twice daily -metformin 1000 bid -allopurinol only when has symptoms (last 9 months ago) Today did not take any meds besides metoprolol succinate 50mg, held all other meds as instructed. Review of Systems: Per HPI, otherwise negative Problem List/Past Medical History Patient Active Problem List Diagnosis ??? CAD (coronary artery disease) ??? Other primary cardiomyopathies ??? Alcohol abuse, unspecified ??? Hyperpotassemia ??? Cardiogenic shock ??? Unspecified hypothyroidism Meds: No current facility-administered medications on file prior to encounter. Current Outpatient Medications on File Prior to Encounter Medication Sig Dispense Refill ??? UNABLE TO FIND daily. N-Acetylcysteine ??? ergocalciferoL, vitamin D2, (vitamin D2) 50,000 unit Capsule Take 50,000 Units by mouth once a week. ??? metFORMIN (GLUCOPHAGE) 1,000 mg Tablet Take 1,000 mg by mouth 2 times daily (with meals). ??? simvastatin (ZOCOR) 20 mg tablet Take 20 mg by mouth nightly. ??? levothyroxine (SYNTHROID) 50 mcg tablet Take 150 mcg by mouth daily. ??? liothyronine (CYTOMEL) 5 mcg tablet Take 10 mcg by mouth daily. ??? furosemide (LASIX) 80 mg tablet Take 80 mg by mouth every morning. ??? metoprolol tartrate (LOPRESSOR) 50 mg tablet Take 100 mg by mouth daily. ??? aspirin 81 mg EC tablet Take 81 mg by mouth daily. ??? multivitamin (THERAGRAN) tablet Take 1 tablet by mouth daily. ??? losartan (Cozaar) 25 mg Tablet Take 25 mg by mouth daily. Has not started yet, recently presribed ??? allopurinoL (Zyloprim) 100 mg Tablet Take 100 mg by mouth as needed (for Gout attacks). ??? nitroGLYcerin (NITROSTAT) 0.[address] 1 tablet under the tongue daily as needed for Chest pain. 90 tablet 3 ??? furosemide (LASIX) 40 mg tablet Take 40 mg by mouth every evening. Allergies: Allergies Allergen Reactions ??? 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 Appears stated age. HEENT: EOMI, PERRL, anicteric sclera. Oropharynx clear w/o lesions. Moist mucous membranes Neck: Supple with normal ROM. No obvious LAD. Cardiac: Normal S1 and S2, Regular rate and rhythm; No murmrs/gallops/rubs. Respiratory: Nonlabored. Bibasilar crackles, decreased breath sounds R-base. Abd: + BS; soft, mild ttp epigastric, mild hepatomegaly, non-distended, no obvious masses. Ext: WWP trace le edema bilaterally to below the knee, no cyanosis or clubbing. DPP 2+ bilaterally. Neuro: II-XII grossly intact. Alert and orientated to self, situation, and conversation, no-focal deficits, sensation intact to crude touch Skin: No rashs, no lesions, no petechiae Laboratory: CBC: Recent Labs 02/21/21 1605 02/21/21 0753 WBC 10.2* 10.7* HGB 14.5 14.7 PLATELET 294 278 Chemistry: Recent Labs 02/21/21 1605 02/21/21 0753 NA 140 143 K 3.8 4.6 CL 102 103 CO2 22 28 BUN 21* 23* CREATININE 0.99 1.08 GLUCOSE 128 -- Recent Labs 02/21/21 1605 02/21/21 0753 CALCIUM 9.6 9.8 MAGNESIUM 0.68* -- PHOS 5.1* -- LFT's: No results for input(s): BILITOT, BILIDIR, ALBUMIN, ALKPHOS, ALT, AST in the last 7068 hours. Coags: Recent Labs 02/21/21 1605 PT 13.1* INR 1.2 PTT 51* Cardiac enzymes: No results for input(s): TROPONINT, CK in the last 7068 hours. Endocrine: No results for input(s): TSH, CORTISOL in the last 7068 hours. Invalid input(s): [id number] Heme: No results for input(s): LDH, HAPTOGLOBIN, URICACID in the last 168 hours. Microbiology: None Diagnostic Studies: EKG- CXR- pending Cardiac Catheterization- report pending - RESPIRATORY CARE INSTRUCTOR of RCA distal to prior stent, nonocclusive disease ofLCX and LAD. TTE- Outside clinic 02/15: ASSESSMENT: Ms. 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 LHC showed RESPIRATORY CARE INSTRUCTOR of RCA with good collateral flow, nonocclusive left-sided coronary disease. No intervention performed. At time of exam patient is stable in CVCC with improved respiratory status after diuresis, though remains on bipap, which we will continue for 30 minutes before transitioning to NC. The etiology of her newly reduced EF is unclear. RCA RESPIRATORY CARE INSTRUCTOR aligns with her inferior akinesis, though her diffuse LV hypokinesis does not appear to be ischemic in nature, so we will proceed with workup and optimization of her GDMT. Ddx includes tachymyopathy (recent palpitations), ETOH (denies recent use), infectious (denies recent infectious symptoms), other. PLAN: Admit to Cardiology, S2 Team Pager # [phone] #Flash pulmonary edema #HFrEF -TTE -CXR -vitamin D, iron studies, TSH -tele -hold home metoprolol for now -hold home losartan for now -wean nitro drip as able #CAD s/p RCA stent in 2012 -s/p LHC -continue home ASA 81 -continue home lipitor 80 Chronic problems: #DM2 -hold home metformin -AC and HS checks #Hypothyroid -continue home L-thyroxine (dose unknown) #Gout -ntd Other: - DVT prophylaxis: lovenox - GI prophylaxis: n/a - Diet: cardiac diet - Code Status: full code - Dispo:pending clinical status Shalom Mooney MD Internal Medicine PGY1 Cardiology S2, Pager [phone] 02/21/2021 Associated attestation - Alisa De Leon MD - 02/22/2021 1:20 PM EST Cardiology Attending Addendum I was the assigned attending child protection specialist for this clinical encounter. For the purposes of billing,I was directly involved in the clinical decision making and the plan of care is reasonable. Please see the note by Dr. Farooq Garcia below for full details, in brief: Stacy Esparza is a 65 y.o. year old female w/ h/o CAD s/p PCI to RCA in 2012 c/b iCMP 25-30% who p/w worsening SOB and persistent POZO last week. 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 After procedure she developed flash pulmonary edema and respiratory failure requiring BiPAP. Taken to CVCC for IV diuresis. HR 100's, BP 120-130's/70-80's 99% on BiPAP CBC stable, HCT 44, Cre 1.08, K 4.6 Home meds: lasix 80/40mg, metop 100mg QD, asa, losartan 25mg QD Recommendations: IV diuresis (has gotten 120mg IV lasix) Hold BB until optivolemic, then restart metop tartrate 25mg q6h Will optimize HF meds and likely obtain cMR and nonischemic work up Thank you for allowing us to participate in the care of this patient. For any additional questions,my pager is #[phone]. Alisa Reddy MD MPH Advanced [facility] Disease [facility] Cardiac Transplant Attending 02/22/2021, 1:19 PM * Raj Trivedi MD - 02/21/2021 12:21 PM EST Images from the original note were not included. Stacy Esparza is a 65 y.o. female referred for cardiac catheterization by Dr. Hall for evaluation of coronary arteries. 65F with history of CAD (stents to the RCA in 2012) and ischemic cardiomyopathy s/p improvement in EF to 52% who presents with worsening shortness of breath since last week without chest pain. Has had persistent POZO and palpitations. Recent TTE showing LVEF 25 to 30% with a severely dilated LV withdiffuse hypokinesis and apical akinesis. Outpatient Medications Marked as Taking for the 02/21/21 encounter (Hospital Encounter) Medication Sig Dispense Refill ??? UNABLE TO FIND daily. N-Acetylcysteine ??? ergocalciferoL, vitamin D2, (vitamin D2) 50,000 unit Capsule Take 50,000 Units by mouth once a week. ??? metFORMIN (GLUCOPHAGE) 1,000 mg Tablet Take 1,000 mg by mouth 2 times daily (with meals). ??? simvastatin (ZOCOR) 20 mg tablet Take 20 mg by mouth nightly. ??? levothyroxine (SYNTHROID) 50 mcg tablet Take 150 mcg by mouth daily. ??? liothyronine (CYTOMEL) 5 mcg tablet Take 10 mcg by mouth daily. ??? furosemide (LASIX) 80 mg tablet Take 80 mg by mouth every morning. ??? metoprolol tartrate (LOPRESSOR) 50 mg tablet Take 100 mg by mouth daily. ??? aspirin 81 mg EC tablet Take 81 mg by mouth daily. ??? multivitamin (THERAGRAN) tablet Take 1 tablet by mouth daily. BP 124/82 Pulse 92 Temp 36.9 ??C (98.4 ??F) (Temporal) Resp 18 Ht 162.6 cm (5' 4) Wt 66.7 kg (147 lb) SpO2 95% BMI 25.23 kg/m?? Gen: Alert, comfortable appearing, in NAD HEENT: EOMI, MMM Neck: Supple, no JVD CV: RRR, no M/R/G appreciated, normal S1/S2 Resp: CTAB, no W/R/R Abd: Soft, NT/ND, +BS Ext: No edema, clubbing, or cyanosis. Warm. Pulses: 1+ radial bilaterally Labs reviewed and notable for: Lab Results Component Value Date WBC 10.7 (H) 02/21/2021 HGB 14.7 02/21/2021 HCT 43.9 02/21/2021 MCV 91.8 02/21/2021 PLATELET 278 02/21/2021 Lab Results Component Value Date CREATININE 1.08 02/21/2021 BUN 23 (H) 02/21/2021 NA 143 02/21/2021 K 4.6 02/21/2021 CL 103 02/21/2021 CO2 28 02/21/2021 A/P 65 y.o. female here for cardiac catheterization for worsening cardiomyopathy. Will proceed with [facility]. - proceed as planned - consent signed - no apparent contraindication to DAPT, patient denies upcoming or planned procedures/operations, and denies ongoing or recent bleeding events - FULL code -12-Lead ECG reviewed ASA: 3: Patient with severe systemic disease Mallampati: III: only the base of the uvula can be seen Raj Trivedi MD General Cardiology 02/21/21 12:21 PM [id number] documented in this encounter Miscellaneous Notes * Care Management Discharge - Marcia Mayes RN - 02/26/2021 10:28 AM EST CARE MANAGEMENT FINAL DISCHARGE NOTE Chart reviewed, care reviewed with primary team and at interdisciplinary rounds. Patient is medically ready for discharge to home. Oxygen delivered to room and home set up completed. Needs for Transition of Care: Plan for discharge is: Home w/o Services Company: [employer] Transportation: Private car Functional status prior to admission: Independent Home Environment: Others in the home: alone. Current Living Arrangements: home/apartment/condo. Accessibility Concerns:15 steps to enter, no elevator access, she reports she pauses on steps. Current Functional Ability: Independent DME used at home: none DME Needed at Discharge: Oxygen Patient is insured through: Primary Insurance: MEDICARE Payor: MEDICARE / Plan: MEDICARE PART A & B / Product Type: *No Product type* / Secondary Insurance: N/A Prescription Coverage: Yes Preferred Pharmacy: [facility] - [place], [place] - [address] [facility] [id number] [facility] [place], [place] [address] [facility] [address] [facility] [place], [place] - [address] [facility] [address] Marcia Mayes, RN, BSN Case Management * Plan of Care - Vonda Arango RN - 02/26/2021 5:32 AM EST OUTCOME EVALUATION NOTE: OUTCOME SUMMARY: A&O x4. Tele: SR with occ PVCs. HR: 70s-100. 6 sec burst of SVT while sleeping, asymptomatic. Vss, 1L o2 via NC. Desats to low 80s on RA. Denied pain. Appeared to sleep well. Call light in reach. PLAN MOVING FORWARD: Diuresing Continue to actively monitor Discharge planning as approp INDIVIDUALIZED FALL PREVENTION INTERVENTIONS: Patient-specific fall risk factors per assessment: [current deficits]: tele cords, continuous pulseox cords, O2 tubing, unfamiliar environment Assistance [level of assistance required for transfers and ambulation]: independent Supervision [direct monitoring required during toileting and ADLs]: eyes on Surveillance [continuous indirect monitoring]: Tele monitoring, continuous pulse ox, Purposeful hourly rounding Patient-specific fall prevention interventions for sensory deficits provided, if applicable: Lighting adjusted for specific tasks/activities, room near RN station, purposeful hourly rounding, nonskidsocks when OOB, bed in lowest/locked position, Call monae in reach CPG GOAL OUTCOME EVALUATION: ongoing * Plan of Care - Vonda Arango RN - 02/25/2021 6:27 AM EST OUTCOME EVALUATION NOTE: OUTCOME SUMMARY: A&O x4. SR/ST on tele with occ PVCs, rare couplets/3 beat runs. HR: 70s-100s. Burst of SVT thisAM. VS: SBPs 90-102, midnight lopressor held per parameters. 1L o2 via NC, desatting to low 80s on RA with ambulation. Occ harsh congested cough. Repleted mag and received x1 80mg lasix iv this AM. Denied pain. Appeared to sleep well. Call light in reach. PLAN MOVING FORWARD: Diuresing Continue to actively monitor Discharge planning as approp INDIVIDUALIZED FALL PREVENTION INTERVENTIONS: Patient-specific fall risk factors per assessment: [current deficits]: tele cords, continuous pulseox cords, O2 tubing, unfamiliar environment Assistance [level of assistance required for transfers and ambulation]: independent Supervision [direct monitoring required during toileting and ADLs]: eyes on Surveillance [continuous indirect monitoring]: Tele monitoring, continuous pulse ox, Purposeful hourly rounding Patient-specific fall prevention interventions for sensory deficits provided, if applicable: Lighting adjusted for specific tasks/activities, room near RN station, purposeful hourly rounding, nonskidsocks when OOB, bed in lowest/locked position, Call monae in reach CPG GOAL OUTCOME EVALUATION: ongoing * Care Management - Beverly Baum RN - 02/24/2021 11:17 AM EST OFFICE OF CARE MANAGEMENT PROGRESS NOTE LOS: Hospital Day 3 days Chart reviewed, care reviewed with primary team and at interdisciplinary rounds. Patient continues to meet inpatient level of care related to: CAD Functional status prior to admission: Independent Home Environment: Others in the home: alone. Current Living Arrangements: home/apartment/condo. Accessibility Concerns: 15 steps to enter, no elevator access, she reports she pauses on steps. Current Functional Ability: Independent DME used at home: none DME Needed at Discharge: Patient is insured through: Primary Insurance: MEDICARE Payor: MEDICARE / Plan: MEDICARE PART A & B / Product Type: *No Product type* / Secondary Insurance: N/A Prescription Coverage: No Preferred Pharmacy: [facility] - [place], [place] - [address] [facility] [address] [facility] [address] [facility] - [place], [place] - [address] [facility] [id number] Last Physical Therapy Recommendation: home with daily check in,other (see comments) (daily check invia phone call as needed) with None Last Occupational Therapy Recommendation: home with None Plan for discharge is: Home w/o Services Company: [employer] UPDATE: Patient does not qualify for home oxygen, see O2 Certification note dated 02/24/21. Agency Referrals & Follow-up Care: [employer] [facility] (Resp Supplies) Central Intake: [place]: [place]: Transportation: Daughter Barriers to discharge: Plan going forward: Nursing to obtain O2 saturation levels Care Management will continue to follow and assist with discharge planning and coordination of careas indicated. * Plan of Care - Alisa Cabrera RN - 02/22/2021 4:42 PM EST OUTCOME EVALUATION NOTE: OUTCOME SUMMARY: Pt A&O, transferred to [facility] from [facility], no complaints of pain, 1-2LNC, daughter at bedside PLAN MOVING FORWARD: Diuresing Cardiac MRI INDIVIDUALIZED FALL PREVENTION INTERVENTIONS: Patient-specific fall risk factors per assessment: [current deficits]: unfamiliar environment, generalized weakness Assistance [level of assistance required for transfers and ambulation]: st by Supervision [direct monitoring required during toileting and ADLs]: arms reach Surveillance [continuous indirect monitoring]: tele, pulse ox Patient-specific fall prevention interventions for sensory deficits provided, if applicable: call monae in reach, nonskid socks when OOB, purposeful rounding performed CPG GOAL OUTCOME EVALUATION: * Initial Assessments - Beverly Baum RN - 02/22/2021 3:12 PM EST Office of Care Management Initial Assessment Beverly Baum RN reviewed record and discussed patient with Care Team. Source of Information: Team, bedside nurse, medical record, and Patient,[facility] ([facility] RNCM Introduced self/reviewed role; services accepted. Reason for Hospitalization: Cath Last COVID test: Lab Results Component Value Date [id number] Not Detected 02/22/2021 Past medical History: History reviewed. No pertinent past medical history. Hospitalizations Within the Past 30 Days: no previous admission in last 30 days Current Decision-Making Capacity: Self Advance Care Planning: Attempt Cardiopulmonary Resuscitation - Inpatient <no information> -Advanced Directive: No, need to discuss (Patient would like to complete AD while in hospital. RNCMto make MANAGER FRONT OFFICE aware.) If AD's have not been completed Adult Child would be surrogate decision maker per [place] surrogate decision making law. (Only good for 180 days) Any patient receiving care at [facility] must abide by [place] law. The hierarchy for surrogate decision making is: (a) Patient???s spouse, or civil union partner or common law spouse unless there is a divorce proceeding, separation agreement, or restraining order limiting that person???s relationship with the patient. (b) Any adult son or daughter of the patient. (c) Either parent of the patient. (d) Any adult brother or sister of the patient. (e) Any adult grandchild of the patient. (f) Any grandparent of the patient. (g) Any adult aunt, uncle, niece, or nephew of the patient. (h) A close friend of the patient. (i) The agent with financial power of compliance attorney or a conservator appointed in accordance with RSA 464-A. (j) The guardian of the patient???s estate. Current Coping/Education/Information Needs: Coping well with hospital stay and feels updated on issues and plan. Current Functional Ability: unable to assess Functional Status Prior to Admission: Independent Home Environment: Others in the home: alone. Current Living Arrangements: home/apartment/condo. Accessibility Concerns:15 steps to enter, no elevator access, she reports she pauses on steps. Current DME: none Home Address confirmed as: [address] [address] Social & Family Supports: All names listed below confirmed with patient as current and correct Extended Emergency Contact Information Primary Emergency Contact: Araseli Esparza Mobile Relation: Child Secondary Emergency Contact: Chelsea Esparza Mobile Relation: Child Current Care Provided by: self Provides Primary Care For: other (see comments) (provides transportation for a friend) Caregiver if needed: Quality of Family relationships: supportive,helpful Community Resources being provided currently: Behavioral Health History: None Substance Use/Abuse listed: Social History Tobacco Use Smoking Status Current Every Day Smoker ??? Packs/day: 0.25 ??? Years: 50.00 ??? Pack years: 12.50 ??? Types: Cigarettes Smokeless Tobacco Never Used In the past year have you used an illegal drug or used a prescription medication for non-medical reaons?: No 0 No problems reported 1-2 Low level 3-5 Moderate level 6-8 Substantial level 9- 10 Severe level In the past year have you had 4 or more drinks a day containing alcohol?: No 0 to 7 points: Low risk 8 to 15 points: Medium risk 16 to 19 points: High risk 20 to 40 points: Addiction likely Other Pertinent/Service Specific Information: RNCM provided the following resources to daughter andpatient: [facility], [employer], and [place] [facility]. Daughter reports they have spoken with Damir in Financial Assistance and are applying. Patient reports she had looked into Medicaid butdid not qualify due to finances. RNCM also made them aware they can check with PCP office for resources. Patient has no prescription coverage, she and daughter will look into Medicare open enrollment. Patient reports she has been COVID vaccinated and has received booster. Health/Prescription Coverage: Primary Insurance: MEDICARE Payor: MEDICARE / Plan: MEDICARE PART A & B / Product Type: *No Product type* / Secondary Insurance: N/A Prescription Coverage: None Preferred Pharmacy: [facility] [address] Hours: Not open 24 hours [facility] - [place], [place] - [address] [facility] [address] Hours: Not open 24 hours Status: Patient is a : unable to assess Primary Care Provider: Angela Cotto MD [phone] Patient/Caregiver Goals of Treatment: be able to breathe independently and walk out of here Potential Needs for Transition of Care: Agency Referrals: None currently Transportation: no concerns Transportation Anticipated: car, drives self,family or friend will provide Concerns to be Addressed: no discharge needs identified Assessment: Patient is admitted to Cardiology service for Coronary Artery Disease (CAD) Plan: Anticipate discharge to home when medically ready. RNCM made Team aware patient has 15 steps to enter apartment and should be evaluated by PT/OT. A member of the Care Management team will continue to monitor progress, follow for continuity of care and assist with transition of care planning. * Brief Op Note - Lea Hodges MD - 02/21/2021 3:43 PM EST Brief Operative Note Patient Name: Stacy Esparza : [id number] MR#: [id number] Case Date: 02/21/2021 Surgeon: Surgeon(s) and Role: * Lea Hodges MD - Primary * Raj Trivedi MD - Fellow Preoperative diagnosis: Screening for cardiovascular condition [Z13.6]Cardiomyopathy, unspecified type [I42.9] Postoperative diagnosis: Cardiomyopathy Procedure(s) (LRB): CARDIAC CATHETERIZATION (Left) CORONARY ANGIOGRAPHY; W LHC,POSSIBLE PCI (N/A) Anesthesia: Moderate sedation Access: attempted RRA access but occluded axillary switched to RFA with no trouble. Perclose closure. Findings: LM - normal LAD - mid 50% stenosis unchanged from prior cath in 2012 LCx - mild diffuse disease RCA - patent prox stents, severe ISR distal portion of mid stent with 100% total occlusion of distal RCA LVEDP 45 mmHg Complications: Flash pulmonary edema requiring Bipap, IV diuresis and nitro gtt Summary: Severely elevated LVEDP of 45 mmHg. Distal RCA is now RESPIRATORY CARE INSTRUCTOR. Left system unchanged from prior cath. She needs admission and IV diuresis with Bipap. Can re-address need to intervene on RCA RESPIRATORY CARE INSTRUCTOR once she is optimized from HF stand-point. Lea Hodges MD Interventional Cardiology 02/21/2021 documented in this encounter Plan of Treatment Upcoming Encounters Date Type Department Care Team (Late st Contact Info) Description 10/17/2023 10:30 AM EDT Appointment Non[place] [phone] [place] [address] 10/17/2023 11:40 AM EDT Office Visit Cardiology at [address] [phone] [place] [address] 11/15/2023 10:00 AM EDT Hospital Encounter [place] [phone] Arrived 11/21/2023 1:40 PM EDT Office Visit Cardiology at [address] [address] Lea Hodges MD [facility] [place] [address] documented as of this encounter Procedures Procedure Name Priority Date/Time Associated Diagnosis Comments POCT GLUCOSE Routine 02/26/2021 7:42 AM EST HEMOGRAM Routine 02/26/2021 4:21 AM EST DIFFERENTIAL, AUTOMATED Routine 02/26/2021 4:21 AM EST HC VENIPUNCTURE Routine 02/26/2021 4:21 AM EST HC MAGNESIUM, SERUM Routine 02/26/2021 4 :21 AM EST BASIC METABOLIC PANEL (NON-FASTING) Routine 02/26/2021 4:21 AM EST POCT GLUCOSE Routine 02/25/2021 5:06 PM EST POCT GLUCOSE Routine 02/25/2021 12:02 PM EST POCT GLUCOSE Routine 02/25/2021 8:42 AM EST XR CHEST ONE VIEW STAT 02/25/2021 8:2 0 AM EST HEMOGRAM Routine 02/25/2021 6:13 AM EST DIFFERENTIAL, AUTOMATED Routine 02/25/2021 6:13 AM EST HC VENIPUNCTURE Routine 02/25/2021 6:13 AM EST HC MAGNESIUM, SERUM Routine 02/25/2021 6 :13 AM EST BASIC METABOLIC PANEL (NON-FASTING) Routine 02/25/2021 6:13 AM EST HC VENIPUNCTURE Routine 02/25/2021 12:10 AM EST HC MAGNESIUM, SERUM Routine 02/25/2021 1 2:10 AM EST POCT GLUCOSE Routine 02/24/2021 8:10 PM EST POCT GLUCOSE Routine 02/24/2021 4:45 PM EST POCT GLUCOSE Routine 02/24/2021 11:46 AM EST POCT GLUCOSE Routine 02/24/2021 7:46 AM EST HEMOGRAM Routine 02/24/2021 3:39 AM EST DIFFERENTIAL, AUTOMATED Routine 02/24/2021 3:39 AM EST HC CBC,PLT & AUTO DIFF Routine 3:39 AM EST HC MAGNESIUM, SERUM Routine 02/24/2021 3 :39 AM EST BASIC METABOLIC PANEL (NON-FASTING) Routine 02/24/2021 3:39 AM EST POCT GLUCOSE Routine 02/23/2021 3:54 PM EST POCT GLUCOSE Routine 02/23/2021 11:28 AM EST POCT GLUCOSE Routine 02/23/2021 7:39 AM EST HC LYME DISEASE, RUFINO Routine 4:45 AM EST HEMOGRAM Routine 02/23/2021 4:45 AM EST DIFFERENTIAL, AUTOMATED Routine 02/23/2021 4:45 AM EST HC HIV SCREEN, 4TH GENERATION Routine 02/23/2021 4:45 AM EST HC CBC,PLT & AUTO DIFF Routine 4:45 AM EST HC MAGNESIUM, SERUM Routine 02/23/2021 4 :45 AM EST BASIC METABOLIC PANEL (NON-FASTING) Routine 02/23/2021 4:45 AM EST POCT GLUCOSE Routine 02/22/2021 4:52 PM EST POCT GLUCOSE Routine 02/22/2021 10:52 AM EST HC C-REACTIVE PROTEIN Routine 02/22/2021 10:50 AM EST HC PCH ANATITRE (ANDPATTERN) Routine 02/22/2021 10:50 AM EST HC TOTAL T3 Routine 02/22/2021 10:50 AM EST HC FREE THYROXINE (T4) Routine 10:50 AM EST HEPATIC FUNCTION PANEL Routine 10:50 AM EST ECHO COMPLETE W CONTRAST Routine 02/22/2021 10:36 AM EST HFrEF (heart failure with reduced ejection fraction) POCT GLUCOSE Routine 02/22/2021 8:00 AM EST HEMOGRAM Routine 02/22/2021 5:15 AM EST DIFFERENTIAL, AUTOMATED Routine 02/22/2021 5:15 AM EST HC CBC,PLT & AUTO DIFF Routine 5:15 AM EST HC MAGNESIUM, SERUM Routine 02/22/2021 5 :15 AM EST BASIC METABOLIC PANEL (NON-FASTING) Routine 02/22/2021 5:15 AM EST RAPID COVID-19 PCR ([facility]) Routine 02/22/2021 12:40 AM EST POCT GLUCOSE Routine 02/21/2021 10:05 PM EST BMP W/FASTING GLUCOSE Routine 02/21/2021 10:05 PM EST HC MAGNESIUM, SERUM Routine 02/21/2021 1 0:05 PM EST XR CHEST ONE VIEW STAT 02/21/2021 5:0 0 PM EST HC THYROID STIMULATING HORMONE, SERUM Routine 02/21/2021 4:55 PM EST HC IRON BINDING CAPACITY Routine 02/21/2021 4:55 PM EST HC VITAMIN D TOTAL-25 HYDROXY Routine 02/21/2021 4:55 PM EST HC FOLATE, SERUM Routine 02/21/2021 4:55 PM EST HC FERRITIN, SERUM Routine 02/21/2021 4: 55 PM EST HC VITAMIN B12 SERUM Routine 02/21/2021 4:55 PM EST HC L-LACTATE STAT 02/21/2021 4:26 PM EST POCT GLUCOSE Routine 02/21/2021 4:16 PM EST TYPE AND SCREEN VALIDITY STAT 02/21/2021 4:05 PM EST ABORH RECHECK STATUS STAT 02/21/2021 4:05 PM EST HEMOGRAM STAT 02/21/2021 4:05 PM EST DIFFERENTIAL, AUTOMATED STAT 02/21/2021 4:05 PM EST ABO/RH TYPING STAT 02/21/2021 4:05 PM EST HC PARTIAL THROMBOPLASTIN TIME STAT 02/21/2021 4:05 PM EST HC PROTHROMBIN TIME STAT 02/21/2021 4 :05 PM EST HC CBC,PLT & AUTO DIFF STAT 4:05 PM EST ANTIBODY SCREEN STAT 02/21/2021 4:05 PM EST HC ABO-MICROTITER STAT 02/21/2021 4:0 5 PM EST HC PHOSPHORUS, SERUM STAT 02/21/2021 4:05 PM EST HC MAGNESIUM, SERUM STAT 02/21/2021 4 :05 PM EST BASIC METABOLIC PANEL (NON-FASTING) STAT 02/21/2021 4:05 PM EST CARDIAC CATHETERIZATION Routine 02/21/2021 3:40 PM EST Screening for cardiovascular condition Cardiomyopathy, unspecified type HFrEF (heart failure with reduced ejection fraction) EKG 12-LEAD Routine 02/21/2021 10:22 AM EST Screening for cardiovascular condition Cardiomyopathy, unspecified type HFrEF (heart failure with reduced ejection fraction) documented in this encounter Results * POCT Glucose (02/26/2021 7:42 AM EST) [facility] POC Glucose 113 65 - 199 mg/dL [facility] Comment: Supplemental ranges: <140 mg/dL before meals <180 mg/dL all other times of the day Blood 02/26/2021 7:42 AM EST 02/26/2021 7:42 AM EST Kaleb Norwood MD POINT OF CARE TEST O RDERABLES [facility] [place] [address] * Differential, Automated (02/26/2021 4:21 AM EST) [facility] Neutrophils % 51.4 % [facility] Neutr Abs (ANC) 4.29 1.70 - 6.10 x10(3)/[facility] Lymphocytes % 33.9 % [facility] Lymphocytes Abs 2.8 0.9 - 3.2 x10(3)/[facility] Monocytes % 10.0 % [facility] Monocyte Abs 0.8 0.3 - 0.9 x10(3)/[facility] Eosinophils % 3.9 % [facility] Eosinophils Abs 0.3 0.0 - 0.4 x10(3)/[facility] Basophils % 0.7 % [facility] Basophils Abs 0.1 0.0 - 0.1 x10(3)/[facility] Immature Gran % 0.10 % [facility] Comment: Immature granulocytes(IG's)percentage and absolute count will include metamyelocytes, myelocytes, and promyelocytes. Blood smears from CBCs yielding IG's will be scanned manually for concordance. If this scan disagrees with the automated IG or if promyelocytes are noted, a manual differential will be performed. [place] Gran Abs 0.01 0.00 - 0.04 x10(3)/[facility] Blood 02/26/2021 4:21 AM EST 02/26/2021 4:38 AM EST Narrative Resulting Agency Comment Spec In Lab Yaakova Lauren DO HEMATOLOGY ORDERABLE S Performing Organization Address City/State/[facility] Co de Phone Number [facility] [place] [address] * (ABNORMAL) Hemogram (02/26/2021 4:21 AM EST) WBC 8.4 4.0 - 9.5 x10(3)/[facility] RBC 4.49 4.00 - 5.21 x10(6)/[facility] Hemoglobin 13.7 11.7 - 15.5 g/dL [facility] Hematocrit 41.2 35.7 - 45.8 % [facility] MCV 91.8 82.6 - 94.4 fL [facility] MCH 30.5 27.1 - 32.0 pg [facility] MCHC 33.3 31.7 - 35.0 g/dL [facility] Platelets 254 145 - 357 x10(3)/[facility] RDWSD 47.7(H) 37.0 - 46.0 fL [facility] RDWCV 14.3(H) 11.5 - 14.1 % [facility] MPV 9.2 7.6 - 12.9 fL [facility] nRBC % Auto 0.0 % [facility] nRBC Abs Auto 0.000 0.000 - 0.000 x10(3)/mcL [facility] Blood 02/26/2021 4:21 AM EST 02/26/2021 4:38 AM EST Narrative Resulting Agency Comment Spec In Lab Harry Harmanmalachi GARCIA HEMATOLOGY ORDERABLE S Performing Organization Address City/[facility]/ZIP Co de Phone Number [facility] [place] [address] * Magnesium (02/26/2021 4:21 AM EST) Magnesium 0.98 0.69 - 1.07 mmol/L [facility] Blood 02/26/2021 4:21 AM EST 02/26/2021 4:38 AM EST Narrative Resulting Agency Comment Spec In Lab Alisa Borrero MD CHEMISTRY OR DERABLES Performing Organization Address [facility] Co de Phone Number [facility] [place] [address] * (ABNORMAL) Basic Metabolic Panel (non-fasting) (02/26/2021 4:21 AM EST) Glucose Lvl 108 65 - 199 mg/dL [facility] Comment:Diabetes: >=200 mg/d L plus symptoms BUN 26(H) 8 - 18 mg/dL [facility] Creatinine 1.05 0.70 - 1.20 mg/dL [facility] Sodium 140 135 - 145 mmol/L [facility] Potassium 4.3 3.5 - 5.0 mmol/L [facility] Comment: Please note: ??Patients with WBC >100,000 may have falsely elevated Potassium levels. ??For accurate Potassium quantification in these patients send serum separator tube (gold top) for subsequent determinations. ??Contact the Clinical Chemistry Laboratory if there are any questions. Chloride 99 98 - 107 mmol/L [facility] CO2 30 22 - 31 mmol/L [facility] Anion Gap 11 5 - 15 mmol/L [facility] Calcium 9.0 8.5 - 10.5 mg/dL [facility] Estimated GFR 55(L) >=60 mL/min/1. 73 m?? [facility] Comment: This patient? s estimated glomerular filtration rate (eGFR) is between 55 mL/min/1.73 m2 (patients with less muscle mass) and 64 mL/min/1.73 m2 (patients with more muscle mass) [...] and symptoms in addition to eGFR. Blood 02/26/2021 4:21 AM EST 02/26/2021 4:38 AM EST Narrative Resulting Agency Comment Spec In Lab Alisa Borrero MD CHEMISTRY OR DERABLES [facility] [place] [address] * POCT Glucose (02/25/2021 5:06 PM EST) [facility] POC Glucose 107 65 - 199 mg/dL [facility] Comment: Supplemental ranges: <140 mg/dL before meals <180 mg/dL all other times of the day Blood 02/25/2021 5:06 PM EST 02/25/2021 5:06 PM EST Kaleb Norwood MD POINT OF CARE TEST O RDERABLES [facility] [place] [address] * POCT Glucose (02/25/2021 12:02 PM EST) POC Glucose 107 65 - 199 mg/dL [facility] Comment: Supplemental ranges: <140 mg/dL before meals <180 mg/dL all other times of the day Blood 02/25/2021 12:0 2 PM EST 02/25/2021 12:02 PM EST Kaleb Norwood MD POINT OF CARE TEST O JAROD Performing Organization Address [facility] de Phone Number [facility] [place] [address] * (ABNORMAL) POCT Glucose (02/25/2021 8:42 AM EST) POC Glucose 239(H) 65 - 199 mg/dL [facility] Comment: Supplemental ranges: <140 mg/dL before meals <180 mg/dL all other times of the day Blood 02/25/2021 8:42 AM EST 02/25/2021 8:42 AM EST Kaleb Norwodo MD POINT OF CARE TEST O JAROD Performing Organization Address [facility] de Phone Number [facility] [place] [address] * XR Chest One View (02/25/2021 8:20 AM EST) Anatomical Region Laterality Modality Chest N/A Digital Radiogra phy Impressions 02/25/2021 9:02 AM EST Bibasilar opacities, suspect subsegmental atelectases. Stable cardiomegaly. Thank you for letting us participate in the care of this patient. ??If you are a health care provider and have any questions regarding this report, please contact the number below. ??For patients who have questions please contact the health pet care technician that requested your imaging first. ? Narrative 02/25/2021 9:02 AM EST EXAMINATION: XR CHEST ONE VIEW CLINICAL HISTORY: cough TECHNIQUE: 1 view of the chest COMPARISON: February 21, 2021 FINDINGS: Stable cardiomegaly. Ill-defined linear and wedge-shaped bibasilar opacities, concerning for subsegmental atelectases. No areas of airspace consolidation or evidence of pulmonary edema. Procedure Note Jesse Tomas MD - 02/25/2021 EXAMINATION: XR CHEST ONE VIEW CLINICAL HISTORY: cough TECHNIQUE: 1 view of the chest COMPARISON: February 21, 2021 FINDINGS: Stable cardiomegaly. Ill-defined linear and wedge-shaped bibasilaropacities, concerning for subsegmental atelectases. No areas of airspaceconsolidation or evidence of pulmonary edema. IMPRESSION Bibasilar opacities, suspect subsegmental atelectases. Stablecardiomegaly. Thank you for letting us participate in the care of this patient. If youare a health care provider and have any questions regarding this report,please contact the number below. For patients who have questions please contactthe health pet care technician that requested your imaging first. Kaleb Norwood MD IMG DX ORDERABLES * Differential, Automated (02/25/2021 6:13 AM EST) Neutrophils % 56.2 % [facility] Neutr Abs (ANC) 4.52 1.70 - 6.10 x10(3)/mcL [facility] Lymphocytes % 28.7 % [facility] Lymphocytes Abs 2.3 0.9 - 3.2 x10(3)/[facility] LAB[facility] Monocytes % 10.4 % [facility] Monocyte Abs 0.8 0.3 - 0.9 x10(3)/[facility] Eosinophils % 3.5 % [facility] Eosinophils Abs 0.3 0.0 - 0.4 x10(3)/[facility] Basophils % 1.0 % [facility] Basophils Abs 0.1 0.0 - 0.1 x10(3)/[facility] Immature Gran % 0.20 % [facility] Comment: Immature granulocytes(IG's)percentage and absolute count will include metamyelocytes, myelocytes, and promyelocytes. Blood smears from CBCs yielding IG's will be scanned manually for concordance. If this scan disagrees with the automated IG or if promyelocytes are noted, a manual differential will be performed. [place] Gran Abs 0.02 0.00 - 0.04 x10(3)/[facility] Blood 02/25/2021 6:13 AM EST 02/25/2021 6:27 AM EST Narrative Resulting Agency Comment Spec In Lab Harry Aguilar DO HEMATOLOGY ORDERABLE S [facility] [place] [address] * (ABNORMAL) Hemogram (02/25/2021 6:13 AM EST) WBC 8.0 4.0 - 9.5 x10(3)/[facility] RBC 4.70 4.00 - 5.21 x10(6)/[facility] Hemoglobin 14.1 11.7 - 15.5 g/dL [facility] Hematocrit 43.3 35.7 - 45.8 % [facility] MCV 92.1 82.6 - 94.4 fL [facility] MCH 30.0 27.1 - 32.0 pg [facility] MCHC 32.6 31.7 - 35.0 g/dL [facility] Platelets 261 145 - 357 x10(3)/[facility] RDWSD 47.8(H) 37.0 - 46.0 [facility] LABORATORY RDWCV 14.2(H) 11.5 - 14.1 % [facility] MPV 9.2 7.6 - 12.9 fL [facility] nRBC % Auto 0.0 % [facility] nRBC Abs Auto 0.000 0.000 - 0.000 x10(3)/[facility] Blood 02/25/2021 6:13 AM EST 02/25/2021 6:27 AM EST Narrative Resulting Agency Comment Spec In Lab Harry Aguilar DO HEMATOLOGY ORDERABLE S Performing Organization Address City/[facility]/ZIP Co de Phone Number [facility] [place] [address] * (ABNORMAL) Magnesium (02/25/2021 6:13 AM EST) Magnesium 1.11(H) 0.69 - 1.07 mmol/L [facility] Blood 02/25/2021 6:13 AM EST 02/25/2021 6:27 AM EST Narrative Resulting Agency Comment Spec In Lab Alisa Borrero MD CHEMISTRY OR DERABLES [facility] [place] [address] * (ABNORMAL) Basic Metabolic Panel (non-fasting) (02/25/2021 6:13 AM EST) Glucose Lvl 118 65 - 199 mg/dL [facility] Comment:Diabetes: >=200 mg/d L plus symptoms BUN 21(H) 8 - 18 mg/dL [facility] Creatinine 0.89 0.70 - 1.20 mg/dL [facility] Sodium 139 135 - 145 mmol/L [facility] Potassium 4.1 3.5 - 5.0 mmol/L [facility] Comment: Please note: ??Patients with WBC >100,000 may have falsely elevated Potassium levels. ??For accurate Potassium quantification in these patients send serum separator tube (gold top) for subsequent determinations. ??Contact the Clinical Chemistry Laboratory if there are any questions. Chloride 98 98 - 107 mmol/L [facility] CO2 29 22 - 31 mmol/L [facility] Anion Gap 12 5 - 15 mmol/L [facility] Calcium 9.1 8.5 - 10.5 mg/dL [facility] Estimated GFR 68 >=60 mL/min/1. 73 m?? [facility] Comment: This patient? s estimated glomerular filtration rate (eGFR) is between 68 mL/min/1.73 m2 (patients with less muscle mass) and 78 mL/min/1.73 m2 (patients with more muscle mass) [...] and symptoms in addition to eGFR. Blood 02/25/2021 6:13 AM EST 02/25/2021 6:27 AM EST Narrative Resulting Agency Comment Spec In Lab Alisa Borrero MD CHEMISTRY OR DERABLES [facility] [place] [address] * Magnesium (02/25/2021 12:10 AM EST) Magnesium 0.84 0.69 - 1.07 mmol/L [facility] Blood 02/25/2021 12:1 0 AM EST 02/25/2021 12:14 AM EST Narrative Resulting Agency Comment Spec In Lab Kaleb Norwood MD CHEMISTRY ORDERABLES [facility] [place] [address] * (ABNORMAL) BMP w/fasting Glucose (02/25/2021 12:10 AM EST) Glucose Fasting 103(H) 65 - 99 mg/dL [facility] Comment: ?Fasting* Glucose Interpretive Criteria Normal [...] of Diabetes Mellitus, Position Statement from the [employer]. ??Diabetes Care, Volume 33, Supplement 1, Mar 2009 BUN 23(H) 8 - 18 mg/dL [facility] Creatinine 0.94 0.70 - 1.20 mg/dL [facility] Sodium 138 135 - 145 mmol/L [facility] Potassium 4.2 3.5 - 5.0 mmol/L [facility] Comment: Please note: ??Patients with WBC >100,000 may have falsely elevated Potassium levels. ??For accurate Potassium quantification in these patients send serum separator tube (gold top) for subsequent determinations. ??Contact the Clinical Chemistry Laboratory if there are any questions. Chloride 99 98 - 107 mmol/L [facility] CO2 30 22 - 31 mmol/L [facility] Anion Gap 9 5 - 15 mmol/L [facility] Calcium 8.8 8.5 - 10.5 mg/dL [facility] Estimated GFR 63 >=60 mL/min/1. 73 m?? [facility] Comment: This patient? s estimated glomerular filtration rate (eGFR) is between 63 mL/min/1.73 m2 (patients with less muscle mass) and 73 mL/min/1.73 m2 (patients with more muscle mass) [...] and symptoms in addition to eGFR. Blood 02/25/2021 12:1 0 AM EST 02/25/2021 12:14 AM EST Narrative Resulting Agency Comment Spec In Lab Kaleb Norwood MD CHEMISTRY ORDERABLES Performing Organization Address [facility]/ZIP Co de Phone Number [facility] [place] [address] * POCT Glucose (02/24/2021 8:10 PM EST) POC Glucose 136 65 - 199 mg/dL [facility] Comment: Supplemental ranges: <140 mg/dL before meals <180 mg/dL all other times of the day Blood 02/24/2021 8:10 PM EST 02/24/2021 8:10 PM EST Kaleb Norwood MD POINT OF CARE TEST O RDERABLES Performing Organization Address City/[facility]/ZIP Co de Phone Number [facility] [place] [address] * POCT Glucose (02/24/2021 4:45 PM EST) POC Glucose 103 65 - 199 mg/dL [facility] Comment: Supplemental ranges: <140 mg/dL before meals <180 mg/dL all other times of the day Blood 02/24/2021 4:45 PM EST 02/24/2021 4:45 PM EST Kaleb Norwood MD POINT OF CARE TEST O RDERABLES Performing Organization Address [facility] de Phone Number [facility] [place] [address] * POCT Glucose (02/24/2021 11:46 AM EST) POC Glucose 97 65 - 199 mg/dL [facility] Comment: Supplemental ranges: <140 mg/dL before meals <180 mg/dL all other times of the day Blood 02/24/2021 11:4 6 AM EST 02/24/2021 11:46 AM EST Kaleb Norwood MD POINT OF CARE TEST O RDERABLES Performing Organization Address [facility] de Phone Number [facility] [place] [address] * POCT Glucose (02/24/2021 7:46 AM EST) POC Glucose 130 65 - 199 mg/dL [facility] Comment: Supplemental ranges: <140 mg/dL before meals <180 mg/dL all other times of the day Blood 02/24/2021 7:46 AM EST 02/24/2021 7:46 AM EST Alisa Borrero MD POINT OF CAR E TEST ORDERABLES Performing Organization Address [facility] de Phone Number [facility] [place] [address] * Differential, Automated (02/24/2021 3:39 AM EST) Neutrophils % 55.2 % [facility] Neutr Abs (ANC) 4.86 1.70 - 6.10 x10(3)/[facility] Lymphocytes % 31.0 % [facility] Lymphocytes Abs 2.7 0.9 - 3.2 x10(3)/[facility] Monocytes % 9.8 % [facility] Monocyte Abs 0.9 0.3 - 0.9 x10(3)/[facility] Eosinophils % 3.1 % [facility] Eosinophils Abs 0.3 0.0 - 0.4 x10(3)/[facility] Basophils % 0.7 % [facility] Basophils Abs 0.1 0.0 - 0.1 x10(3)/[facility] Immature Gran % 0.20 % [facility] Comment: Immature granulocytes(IG's)percentage and absolute count will include metamyelocytes, myelocytes, and promyelocytes. Blood smears from CBCs yielding IG's will be scanned manually for concordance. If this scan disagrees with the automated IG or if promyelocytes are noted, a manual differential will be performed. [place] Gran Abs 0.02 0.00 - 0.04 x10(3)/[facility] Blood 02/24/2021 3:39 AM EST 02/24/2021 4:07 AM EST Narrative Resulting Agency Comment Spec In Lab Harry Aguilar DO HEMATOLOGY ORDERABLE S Performing Organization Address City/State/[facility] Co de Phone Number [facility] [place] [address] * (ABNORMAL) Hemogram (02/24/2021 3:39 AM EST) WBC 8.8 4.0 - 9.5 x10(3)/[facility] RBC 4.57 4.00 - 5.21 x10(6)/[facility] Hemoglobin 13.6 11.7 - 15.5 g/dL [facility] Hematocrit 42.0 35.7 - 45.8 % [facility] MCV 91.9 82.6 - 94.4 fL [facility] MCH 29.8 27.1 - 32.0 pg [facility] MCHC 32.4 31.7 - 35.0 g/dL [facility] Platelets 250 145 - 357 x10(3)/[facility] RDWSD 47.0(H) 37.0 - 46.0 fL [facility] RDWCV 14.1 11.5 - 14.1 % [facility] MPV 9.1 7.6 - 12.9 fL [facility] nRBC % Auto 0.0 % [facility] nRBC Abs Auto 0.000 0.000 - 0.000 x10(3)/[facility] Blood 02/24/2021 3:39 AM EST 02/24/2021 4:07 AM EST Narrative Resulting Agency Comment Spec In Lab Harry Aguilar DO HEMATOLOGY ORDERABLE S Performing Organization Address City/[facility]/ZIP Co de Phone Number [facility] [place] [address] * Magnesium (02/24/2021 3:39 AM EST) Magnesium 0.85 0.69 - 1.07 mmol/L [facility] Blood 02/24/2021 3:39 AM EST 02/24/2021 4:07 AM EST Narrative Resulting Agency Comment Spec In Lab Alisa Borrero MD CHEMISTRY OR DERABLES Performing Organization Address City/[facility]/ZIP Co de Phone Number [facility] [place] [address] * (ABNORMAL) Basic Metabolic Panel (non-fasting) (02/24/2021 3:39 AM EST) Glucose Lvl 118 65 - 199 mg/dL [facility] Comment:Diabetes: >=200 mg/d L plus symptoms BUN 19(H) 8 - 18 mg/dL [facility] Creatinine 1.00 0.70 - 1.20 mg/dL [facility] Sodium 140 135 - 145 mmol/L [facility] Potassium 3.9 3.5 - 5.0 mmol/L [facility] Comment: Please note: ??Patients with WBC >100,000 may have falsely elevated Potassium levels. ??For accurate Potassium quantification in these patients send serum separator tube (gold top) for subsequent determinations. ??Contact the Clinical Chemistry Laboratory if there are any questions. Chloride 99 98 - 107 mmol/L [facility] CO2 29 22 - 31 mmol/L [facility] Anion Gap 12 5 - 15 mmol/L [facility] Calcium 8.9 8.5 - 10.5 mg/dL [facility] Estimated GFR 59(L) >=60 mL/min/1. 73 m?? [facility] Comment: This patient? s estimated glomerular filtration rate (eGFR) is between 59 mL/min/1.73 m2 (patients with less muscle mass) and 68 mL/min/1.73 m2 (patients with more muscle mass) [...] and symptoms in addition to eGFR. Blood 02/24/2021 3:39 AM EST 02/24/2021 4:07 AM EST Narrative Resulting Agency Comment Spec In Lab Alisa Borrero MD CHEMISTRY OR DERABLES [facility] [place] [address] * POCT Glucose (02/23/2021 3:54 PM EST) POC Glucose 143 65 - 199 mg/dL [facility] Comment: Supplemental ranges: <140 mg/dL before meals <180 mg/dL all other times of the day Blood 02/23/2021 3:54 PM EST 02/23/2021 3:54 PM EST Alisa Borrero MD POINT OF CAR E TEST ORDERABLES Performing Organization Address [facility] Co de Phone Number [facility] [place] [address] * POCT Glucose (02/23/2021 11:28 AM EST) POC Glucose 125 65 - 199 mg/dL [facility] Comment: Supplemental ranges: <140 mg/dL before meals <180 mg/dL all other times of the day Blood 02/23/2021 11:2 8 AM EST 02/23/2021 11:28 AM EST Alisa Borrero MD POINT OF CAR E TEST ORDERABLES Performing Organization Address [facility] de Phone Number [facility] [place] [address] * POCT Glucose (02/23/2021 7:39 AM EST) POC Glucose 113 65 - 199 mg/dL [facility] Comment: Supplemental ranges: <140 mg/dL before meals <180 mg/dL all other times of the day Blood 02/23/2021 7:39 AM EST 02/23/2021 7:39 AM EST Alisa Borrero MD POINT OF CAR E TEST ORDERABLES Performing Organization Address [facility] de Phone Number [facility] [place] [address] * Differential, Automated (02/23/2021 4:45 AM EST) Neutrophils % 62.6 % [facility] Neutr Abs (ANC) 5.46 1.70 - 6.10 x10(3)/[facility] LABORAT[facility] Lymphocytes % 25.4 % [facility] Lymphocytes Abs 2.2 0.9 - 3.2 x10(3)/[facility] LABORATORY Monocytes % 8.4 % [facility] Monocyte Abs 0.7 0.3 - 0.9 x10(3)/[facility] LABORATORY Eosinophils % 2.6 % [facility] Eosinophils Abs 0.2 0.0 - 0.4 x10(3)/[facility] LABOR[facility] Basophils % 0.8 % [facility] Basophils Abs 0.1 0.0 - 0.1 x10(3)/[facility] Immature Gran % 0.20 % [facility] Comment: Immature granulocytes(IG's)percentage and absolute count will include metamyelocytes, myelocytes, and promyelocytes. Blood smears from CBCs yielding IG's will be scanned manually for concordance. If this scan disagrees with the automated IG or if promyelocytes are noted, a manual differential will be performed. [place] Gran Abs 0.02 0.00 - 0.04 x10(3)/[facility] LABORATORY Blood 02/23/2021 4:45 AM EST 02/23/2021 4:54 AM EST Narrative Resulting Agency Comment Spec In Lab Harry Aguilar DO HEMATOLOGY ORDERABLE S [facility] [place] [address] * (ABNORMAL) Hemogram (02/23/2021 4:45 AM EST) WBC 8.7 4.0 - 9.5 x10(3)/[facility] LABORATORY RBC 4.45 4.00 - 5.21 x10(6)/[facility] Hemoglobin 13.6 11.7 - 15.5 g/dL [facility] Hematocrit 41.2 35.7 - 45.8 % [facility] MCV 92.6 82.6 - 94.4 fL [facility] MCH 30.6 27.1 - 32.0 pg [facility] MCHC 33.0 31.7 - 35.0 g/dL [facility] Platelets 254 145 - 357 x10(3)/[facility] LABORATORY RDWSD 48.0(H) 37.0 - 46.0 fL [facility] RDWCV 14.4(H) 11.5 - 14.1 % [facility] MPV 8.9 7.6 - 12.9 fL [facility] nRBC % Auto 0.0 % [facility] nRBC Abs Auto 0.000 0.000 - 0.000 x10(3)/[facility] LABORATORY Blood 02/23/2021 4:45 AM EST 02/23/2021 4:54 AM EST Narrative Resulting Agency Comment Spec In Lab Harry Aguilar DO HEMATOLOGY ORDERABLE S Performing Organization Address City/[facility]/ZIP Co de Phone Number [facility] [place] [address] * Magnesium (02/23/2021 4:45 AM EST) Magnesium 0.94 0.69 - 1.07 mmol/L [facility] Blood 02/23/2021 4:45 AM EST 02/23/2021 4:54 AM EST Narrative Resulting Agency Comment Spec In Lab Alisa Borrero MD CHEMISTRY OR DERABLES Performing Organization Address City/[facility]/ZIP Co de Phone Number [facility] [place] [address] * (ABNORMAL) Basic Metabolic Panel (non-fasting) (02/23/2021 4:45 AM EST) Glucose Lvl 109 65 - 199 mg/dL [facility] Comment:Diabetes: >=200 mg/d L plus symptoms BUN 19(H) 8 - 18 mg/dL [facility] Creatinine 0.81 0.70 - 1.20 mg/dL [facility] Sodium 142 135 - 145 mmol/L [facility] Potassium 4.2 3.5 - 5.0 mmol/L [facility] Comment: Please note: ??Patients with WBC >100,000 may have falsely elevated Potassium levels. ??For accurate Potassium quantification in these patients send serum separator tube (gold top) for subsequent determinations. ??Contact the Clinical Chemistry Laboratory if there are any questions. Chloride 104 98 - 107 mmol/L [facility] CO2 28 22 - 31 mmol/L [facility] Anion Gap 10 5 - 15 mmol/L [facility] Calcium 9.1 8.5 - 10.5 mg/dL [facility] Estimated GFR 76 >=60 mL/min/1. 73 m?? [facility] Comment: This patient? s estimated glomerular filtration rate (eGFR) is between 76 mL/min/1.73 m2 (patients with less muscle mass) and 88 mL/min/1.73 m2 (patients with more muscle mass) [...] and symptoms in addition to eGFR. Blood 02/23/2021 4:45 AM EST 02/23/2021 4:54 AM EST Narrative Resulting Agency Comment Spec In Lab Alisa Borrero MD CHEMISTRY OR DERABLES [facility] [place] [address] * HIV Screen, 4th Generation ([facility]/CGP/APD/NLH) (02/23/2021 4:45 AM EST) Pathologist [facility] HIV-1/2 Ab and Ag Negative Negative [facility] Comment: This 4th Generation HIV test screens for the presence of the HIV-1 p24 antigen as well as antibodies reactive against HIV-1 and HIV-2. A negative screen does not rule out an acute HIV infection. If acute HIV infection is suspected, testing should be repeated in 2 - 3 weeks or HIV nucleic acid testing performed. HIV Comment Low Risk of HIV Infection [facility] Blood 02/23/2021 4:45 AM EST 02/23/2021 4:54 AM EST Narrative Resulting Agency Comment Spec In Lab Alisa Borrero MD IMMUNOLOGY O RDERABLES Performing Organization Address [facility] Co de Phone Number [facility] [place] [address] * Lyme IgG & IgM Antibody (02/23/2021 4:45 AM EST) Lyme Screening Antibody Neg Neg [facility] Blood 02/23/2021 4:45 AM EST 02/23/2021 7:26 AM EST Narrative Resulting Agency Comment Spec In Lab Alisa Borrero MD IMMUNOLOGY O RDERABLES Performing Organization Address [facility] Phone Number [facility] [place] [address] * POCT Glucose (02/22/2021 4:52 PM EST) POC Glucose 172 65 - 199 mg/dL [facility] Comment: Supplemental ranges: <140 mg/dL before meals <180 mg/dL all other times of the day Blood 02/22/2021 4:52 PM EST 02/22/2021 4:52 PM EST Alisa Borrero MD POINT OF CAR E TEST ORDERABLES Performing Organization Address [facility] Co de Phone Number [facility] [place] [address] * POCT Glucose (02/22/2021 10:52 AM EST) POC Glucose 146 65 - 199 mg/dL [facility] Comment: Supplemental ranges: <140 mg/dL before meals <180 mg/dL all other times of the day Blood 02/22/2021 10:5 2 AM EST 02/22/2021 10:52 AM EST Alisa Borrero MD POINT OF CAR E TEST ORDERABLES Performing Organization Address [facility] Co de Phone Number [facility] [place] [address] * T4, free (02/22/2021 10:50 AM EST) Free T4 1.15 0.93 - 1.70 ng/dL [facility] Comment: Reference Interval (ng/dL): Females: ??First Trimester: 0.97-1.68 ??Second Trimester: 0.77-1.51 ??Third Trimester: 0.77-1.49 Blood 02/22/2021 10:5 0 AM EST 02/22/2021 11:21 AM EST Narrative Resulting Agency Comment Spec In Lab Alisa Borrero MD CHEMISTRY OR DERABLES Performing Organization Address [facility] Co de Phone Number [facility] [place] [address] * (ABNORMAL) T3 Total (02/22/2021 10:50 AM EST) T3, Total 50(L) 75 - 170 ng/dL [facility] Blood 02/22/2021 10:5 0 AM EST 02/22/2021 11:21 AM EST Narrative Resulting Agency Comment Spec In Lab Alisa Borrero MD CHEMISTRY OR DERABLES Performing Organization Address [facility] Co de Phone Number [facility] [place] [address] * CRP, acute inflammation (02/22/2021 10:50 AM EST) CRP 3.8 <=4.9 mg/L [facility] Blood 02/22/2021 10:5 0 AM EST 02/22/2021 11:21 AM EST Narrative Resulting Agency Comment Spec In Lab Lea Macdonald MD CHEMISTRY ORDERABLE S Performing Organization Address City/State/[facility] Co de Phone Number [facility] [place] [address] * BOOGIE (02/22/2021 10:50 AM EST) Antinuclear Ab Test ?Result ? Flag ??Unit ??RefValue Antinuclear Ab, HEp-2 ? <1:80 (Negative) ? <1:80 (Negative) ??Substrate, S ? ADDITIONAL INFORMATION --------- ?Method: Immunofluorescence using HEp-2 cellular substrate. ?Test Performed by: ?[facility] ?[address] [place] [address] ?Book Sewer: Cornell Orozco M.D. Ph.D.; CLIA# [id number] [facility] Blood 02/22/2021 10:5 0 AM EST 02/22/2021 12:56 PM EST Narrative Resulting Agency Comment Spec In Lab Lea Macdonald MD IMMUNOLOGY ORDERABL ES Performing Organization Address [facility] de Phone Number [facility] [place] [address] * (ABNORMAL) Hepatic Function Panel (02/22/2021 10:50 AM EST) Total Protein 6.7 6.1 - 8.0 g/dL [facility] Albumin 4.2 3.2 - 5.2 g/dL [facility] AST 26 0 - 30 unit/L [facility] ALT 52(H) 0 - 30 unit/L [facility] Alk Phos 74 35 - 105 unit/L [facility] Total Bilirubin 0.6 0.2 - 1.3 mg/dL [facility] Bili, Direct 0.2 0.0 - 0.3 mg/dL [facility] Blood 02/22/2021 10:5 0 AM EST 02/22/2021 11:21 AM EST Narrative Resulting Agency Comment Spec In Lab Lea Macdonald MD CHEMISTRY ORDERABLE S Performing Organization Address [facility] de Phone Number [facility] [place] [address] * ECHO COMPLETE W CONTRAST (02/22/2021 10:36 AM EST) Pathologist [facility] EF 15 HEARTLAB SYSTEM Anatomical Region Laterality Modality Other 02/22/2021 Narrative 02/22/2021 11:07 AM EST Procedure: ?Transthoracic Echocardiogram Patient: ?DIVYA MUNOZ ? (Age): 1955(65y) Med Rec#: ? [id number] ?Sex: ?F ? Site Loc: ? [facility] ?Ht / Wt: ??163(cm)/67(kg) Pt. Loc: ?CCU ? BSA: ?1.72 Study Date: ?? 02/22/2021 ?Pt. Type: Inpatient Tape: ? Referring: Lea Hodges I Referring: PAYTON Reading: Raoul Lofton ([id number]) [employer]: Isa Anaya Diagnosis: *Unspecified systolic (congestive) heart failure (I50.20) Rhythm: ? Tachycardia BP: ? 89/60 SUMMARY: 1. The left ventricle is severely dilated. Global left ventricular systolic function is severely and diffusely reduced with EF 15-20%. ??No mural thrombus is seen. 2. The right [...] is a small to moderate pericardial effusion. Findings ? : Study Quality: ? Adequate Left Ventricle: ? The left ventricle is severely dilated. ?Left ventricular wall thickness is normal. ?There is no evidence of LVOT obstruction. ?No ventricular septal defect is visualized. ?Global left ventricular systolic function is severely reduced. Ejection fraction is estimated to be 15%.-20%. ?There is diffuse hypokinesis present. ?Left sided filling pressure could not be assessed by Doppler. Left Atrium: ? The left atrium is moderately dilated.(43.0 ml/m2). ?There is no patent foramen ovale visualized. Right Ventricle: ? The right ventricle is probably normal in size. ?Right ventricular global systolic function is moderately reduced. ?There are right ventricular segmental wall motion abnormalities. ?The free wall of the right ventricle appears akinetic. ?Pulmonary artery hypertension could not be assessed due to inadequate tricuspid regurgitation jet. ?The estimated right atrial pressure is 15 mmHg. Right Atrium: ? The right atrium is normal in size. Aortic Valve: ? The aortic valve is probably tricuspid. ?The aortic valve leaflets are mildly thickened. ?Focal aortic leaflet calcification is visualized. ?There is no evidence of aortic valve stenosis. ?There is no evidence of aortic regurgitation. Mitral Valve: ? The mitral valve leaflets appear normal. ?There is restricted closure of both mitral valve leaflets. ?There is no evidence of mitral stenosis. ?There is moderate to severe (3+/4+) mitral regurgitation present. Tricuspid Valve: ? The tricuspid valve leaflets are morphologically normal. ?There is no tricuspid valve stenosis. ?There is trace tricuspid regurgitation present. Pulmonic Valve: ? The pulmonic valve is probably normal. ?There is no pulmonic stenosis present. ?There is trace pulmonic regurgitation present. Pericardium: ? There is a small posterior pericardial effusion. ?A pericardial fat pad is visualized. Aorta: ? The aortic root is normal in size. ?There is mild dilatation of the ascending aorta.(3.6 cm). Pulmonary Artery: ? The main pulmonary artery is not well visualized. Venous: ? The inferior vena cava appears dilated. ?There is no change in the dimension of the inferior vena cava with respiration consistent with markedly increased right atrial pressure. Misc: ? Two-dimensional echo, spectral Doppler and color Doppler performed. ?Definity contrast (one 1.5 ml vial)was used to enhance endocardial definition. Excess contrast was discarded. Chambers 2D ?Value ?Units (Range) ? IVSd (2D) ? 0.95 ? cm ? LVPWd (2D) ?1.13 ? cm ? IVS:LVPW ratio (2D) 0.84 ? ratio ? RWT (2D) ?0.28 ? ratio ? RWT PW (2D) ? 0.31 ? ratio ? LVIDd (2D) ?7.35 ? cm ? LVIDs (2D) ?6.63 ? cm ? LVIDd (2D) index ?4.26 ? cm/m2 ? LVIDs (2D) index ?3.85 ? cm/m2 ? LV FS (2D) ?9.83 ? % ? EF Teichholz (2D) ?? 20.82 ?% ? Ao root diameter (2D3.2 ?cm (2.1 - 3.6) ? Ascending Ao ?3.6 ?cm (2 - 3.5) ? Volumes/Mass ?Value ?Units (Range) ? LA Area 4 CH ?21.2 ? cm2 (<21) ? LA ESV BP (A/L) inde42.93 ?ml/m2 ? RA AREA 4CH ? 14.6 ? cm2 ? LV ESV SP 4CH (MOD) 191.76 ? ml ? LV mass (2D) ?368.89 ? g ? LV mass (2D) index ??214.1 ?g/m2 ? Aortic Valve ?Value ?Units (Range) ? LVOT diameter ? 2.13 ? cm ? LVOT Vmax ? 0.62 ? m/sec ? LVOT VTI ?8.14 ? cm ? LVOT peak gradient ??1.53 ? mmHg ? LVOT mean gradient ??0.8 ?mmHg ? SV LVOT ? 29.08 ?ml ? CO LVOT ? 3.62 ? l/min ? Cardiac index ? 2.1 ?l/min/m2 ? Mitral Valve ?Value ?Units (Range) ? MR volume (PISA) ?13.05 ?ml ? MR flow (PISA) ?45.53 ?ml/sec ? MR ERO ?0.1 ?cm2 ? MR PISA radius ?0.49 ? cm ? MR alias Vmax ? 30.03 ?cm/sec ? Tricuspid Valve ?Value ?Units (Range) ? RAP ? 15 ? mmHg ? This report has been electronically signed by: Raoul Lofton M.D. ? 02/22/2021 11:07:10 Images reviewed and interpretation verified [facility] Cardiac Ultrasound Laboratory Procedure Note Raoul Lofton MD - 02/22/2021 Procedure: Transthoracic Echocardiogram Patient: DIVYA MUNOZ(Age): 1955(65y) Med Rec#: [id number] Sex: F Site Loc: [facility] Ht / Wt: 163(cm)/67(kg) Pt. Loc: [facility] BSA: 1.72 Study Date: 02/22/2021 Pt. Type: Inpatient Tape: Referring: Lea Hodges I Referring: PAYTON Reading: Raoul Lofton ([id number]) [employer]: Isa Anaya Diagnosis: *Unspecified systolic (congestive) heart failure (I50.20) Rhythm: Tachycardia BP: 89/60 SUMMARY: 1. The left ventricle is severely dilated. [...] is a small to moderate pericardial effusion. Findings : Study Quality: Adequate Left Ventricle: The left ventricle is severely dilated. Left ventricular wall thickness is normal. There is no evidence of LVOT obstruction. No ventricular septal defect is visualized. Global left ventricular systolic function is severely reduced. Ejection fraction is estimated to be 15%.-20%. There is diffuse hypokinesis present. Left sided filling pressure could not be assessed by Doppler. Left Atrium: The left atrium is moderately dilated.(43.0 ml/m2). There is no patent foramen ovale visualized. Right Ventricle: The right ventricle is probably normal in size. Right ventricular global systolic function is moderately reduced. There are right ventricular segmental wall motion abnormalities. The free wall of the right ventricle appears akinetic. Pulmonary artery hypertension could not be assessed due to inadequate tricuspid regurgitation jet. The estimated right atrial pressure is 15 mmHg. Right Atrium: The right atrium is normal in size. Aortic Valve: The aortic valve is probably tricuspid. The aortic valve leaflets are mildly thickened. Focal aortic leaflet calcification is visualized. There is no evidence of aortic valve stenosis. There is no evidence of aortic regurgitation. Mitral Valve: The mitral valve leaflets appear normal. There is restricted closure of both mitral valve leaflets. There is no evidence of mitral stenosis. There is moderate to severe (3+/4+) mitral regurgitation present. Tricuspid Valve: The tricuspid valve leaflets are morphologically normal. There is no tricuspid valve stenosis. There is trace tricuspid regurgitation present. Pulmonic Valve: The pulmonic valve is probably normal. There is no pulmonic stenosis present. There is trace pulmonic regurgitation present. Pericardium: There is a small posterior pericardial effusion. A pericardial fat pad is visualized. Aorta: The aortic root is normal in size. There is mild dilatation of the ascending aorta.(3.6 cm). Pulmonary Artery: The main pulmonary artery is not well visualized. Venous: The inferior vena cava appears dilated. There is no change in the dimension of the inferior vena cava with respiration consistent with markedly increased right atrial pressure. Misc: Two-dimensional echo, spectral Doppler and color Doppler performed. Definity contrast (one 1.5 ml vial)was used to enhance endocardial definition. Excess contrast was discarded. Chambers 2D Value Units (Range) IVSd (2D) 0.95 cm LVPWd (2D) 1.13 cm IVS:LVPW ratio (2D) 0.84 ratio RWT (2D) 0.28 ratio RWT PW (2D) 0.31 ratio LVIDd (2D) 7.35 cm LVIDs (2D) 6.63 cm LVIDd (2D) index 4.26 cm/m2 LVIDs (2D) index 3.85 cm/m2 LV FS (2D) 9.83 % EF Teichholz (2D) 20.82 % Ao root diameter (2D3.2 cm (2.1 - 3.6) Ascending Ao 3.6 cm (2 - 3.5) Volumes/Mass Value Units (Range) LA Area 4 CH 21.2 cm2 (<21) LA ESV BP (A/L) inde42.93 ml/m2 RA AREA 4CH 14.6 cm2 LV ESV SP 4CH (MOD) 191.76 ml LV mass (2D) 368.89 g LV mass (2D) index 214.1 g/m2 Aortic Valve Value Units (Range) LVOT diameter 2.13 cm LVOT Vmax 0.62 m/sec LVOT VTI 8.14 cm LVOT peak gradient 1.53 mmHg LVOT mean gradient 0.8 mmHg SV LVOT 29.08 ml CO LVOT 3.62 l/min Cardiac index 2.1 l/min/m2 Mitral Valve Value Units (Range) MR volume (PISA) 13.05 ml MR flow (PISA) 45.53 ml/sec MR ERO 0.1 cm2 MR PISA radius 0.49 cm MR alias Vmax 30.03 cm/sec Tricuspid Valve Value Units (Range) RAP 15 mmHg This report has been electronically signed by: Raoul Lofton M.D. 02/22/2021 11:07:10 Images reviewed and interpretation verified [facility] Cardiac Ultrasound Laboratory Lea Macdonald MD ECHO ORDERABLES * POCT Glucose (02/22/2021 8:00 AM EST) POC Glucose 133 65 - 199 mg/dL [facility] Comment: Supplemental ranges: <140 mg/dL before meals <180 mg/dL all other times of the day Blood 02/22/2021 8:00 AM EST 02/22/2021 8:00 AM EST Lea Macdonald MD POINT OF CARE TEST ORDERABLES Performing Organization Address City/State/[facility] Co de Phone Number [facility] [place] [address] * Differential, Automated (02/22/2021 5:15 AM EST) Neutrophils % 59.5 % [facility] Neutr Abs (ANC) 5.65 1.70 - 6.10 x10(3)/[facility] LABORATORY Lymphocytes % 29.8 % [facility] Lymphocytes Abs 2.8 0.9 - 3.2 x10(3)/[facility] LABORATORY Monocytes % 8.7 % [facility] Monocyte Abs 0.8 0.3 - 0.9 x10(3)/[facility] LABORATORY Eosinophils % 1.3 % [facility] Eosinophils Abs 0.1 0.0 - 0.4 x10(3)/[facility] LABORATORY Basophils % 0.5 % [facility] Basophils Abs 0.0 0.0 - 0.1 x10(3)/[facility] LABORATORY Immature Gran % 0.20 % [facility] Comment: Immature granulocytes(IG's)percentage and absolute count will include metamyelocytes, myelocytes, and promyelocytes. Blood smears from CBCs yielding IG's will be scanned manually for concordance. If this scan disagrees with the automated IG or if promyelocytes are noted, a manual differential will be performed. Nelida Gran Abs 0.02 0.00 - 0.04 x10(3)/[facility] LABORATORY Blood 02/22/2021 5:15 AM EST 02/22/2021 5:27 AM EST Narrative Resulting Agency Comment Spec In Lab Duglas Castillo MD HEMATOLOGY ORDERABLE S [facility] [place] [address] * (ABNORMAL) Hemogram (02/22/2021 5:15 AM EST) WBC 9.5 4.0 - 9.5 x10(3)/[facility] LABORATORY RBC 4.42 4.00 - 5.21 x10(6)/[facility] LABORATORY Hemoglobin 13.3 11.7 - 15.5 g/dL [facility] Hematocrit 40.4 35.7 - 45.8 % [facility] MCV 91.4 82.6 - 94.4 fL [facility] MCH 30.1 27.1 - 32.0 pg [facility] MCHC 32.9 31.7 - 35.0 g/dL [facility] Platelets 256 145 - 357 x10(3)/[facility] LABORATORY RDWSD 48.1(H) 37.0 - 46.0 [facility] LABORATORY RDWCV 14.4(H) 11.5 - 14.1 % [facility] MPV 9.2 7.6 - 12.9 [facility] LABORATORY nRBC % Auto 0.0 % [facility] nRBC Abs Auto 0.000 0.000 - 0.000 x10(3)/[facility] LABORATORY Blood 02/22/2021 5:15 AM EST 02/22/2021 5:27 AM EST Narrative Resulting Agency Comment Spec In Lab Duglas Castillo MD HEMATOLOGY ORDERABLE S [facility] [place] [address] * Magnesium (02/22/2021 5:15 AM EST) Pathologist [facility] Magnesium 0.88 0.69 - 1.07 mmol/L [facility] Blood 02/22/2021 5:15 AM EST 02/22/2021 5:27 AM EST Narrative Resulting Agency Comment Spec In Lab Lae Macdonald MD CHEMISTRY ORDERABLE S [facility] [place] [address] * (ABNORMAL) Basic Metabolic Panel (non-fasting) (02/22/2021 5:15 AM EST) Glucose Lvl 104 65 - 199 mg/dL [facility] Comment:Diabetes: >=200 mg/d L plus symptoms BUN 22(H) 8 - 18 mg/dL [facility] Creatinine 0.90 0.70 - 1.20 mg/dL [facility] Sodium 140 135 - 145 mmol/L [facility] Potassium 4.2 3.5 - 5.0 mmol/L [facility] Comment: Please note: ??Patients with WBC >100,000 may have falsely elevated Potassium levels. ??For accurate Potassium quantification in these patients send serum separator tube (gold top) for subsequent determinations. ??Contact the Clinical Chemistry Laboratory if there are any questions. Chloride 104 98 - 107 mmol/L [facility] CO2 26 22 - 31 mmol/L [facility] Anion Gap 10 5 - 15 mmol/L [facility] Calcium 8.7 8.5 - 10.5 mg/dL [facility] Estimated GFR 67 >=60 mL/min/1. 73 m?? [facility] Comment: This patient? s estimated glomerular filtration rate (eGFR) is between 67 mL/min/1.73 m2 (patients with less muscle mass) and 77 mL/min/1.73 m2 (patients with more muscle mass) [...] and symptoms in addition to eGFR. Blood 02/22/2021 5:15 AM EST 02/22/2021 5:27 AM EST Narrative Resulting Agency Comment Spec In Lab Lea Macdonald MD CHEMISTRY ORDERABLE S [facility] [place] [address] * COVID-19 PCR (02/22/2021 12:40 AM EST) SARS-CoV-2 RNA PCR Not Detected Not Detected [facility] Comment: This result should be interpreted in combination with the clinical observations, patient history and epidemiological information. For testing of asymptomatic individuals, assay performance characteristics and clinical utility have not been evaluated. Testing for SARS-CoV-2 (Severe acute respiratory syndrome coronavirus 2, formerly known as 2019 novel coronavirus or 2019-nCoV) to aid in the diagnosis of COVID-19 is performed using the Simplexa COVID-19 Direct Assay by Hand[employer] as authorized by the FDA issued Emergency Use Authorization (EUA). This assay is intended for In-vitro Diagnostic (IVD) use with nasopharyngeal swabs collected from individuals meeting the CDC criteria for testing. The assay is performed based on the instructions for use and additional guidance provided by the FDA. Testing is performed in the Microbiology Laboratory within the Department of Pathology and Laboratory Medicine at [facility], certified under the Clinical Laboratory Improvement Amendments of 1988 (CLIA), 42 U.S.C. section 263a, to perform high complexity tests. Assay performance has been verified according to clinical laboratory regulatory requirements. Test results are provided above. A result of Not Detected indicates that the viral RNA target is not present but does not preclude SARS-CoV-2 infection. False negative results may occur if a specimen is improperly collected, transported or handled; if amplification inhibitors are present; or if inadequate numbers of viral particles are present in the specimen. A result of Detected suggests a current or recent infection and the patient is presumed to be infected. Positive and negative predictive values for this test are highly dependent on disease prevalence. A result of Invalid indicates the inability to conclusively determine the presence or absence of SARS-CoV-2 RNA in the sample which can be due to a variety of factors. Recollection is recommended in the case of an invalid result. CDC COVID-19 criteria for testing on human specimens and clinical management guidance information are available at the CDC Coronavirus Disease 2019 (COVID-19) webpage under Information for Healthcare Professionals (https://www.cdc.gov/coronavirus/2019-ncov/hcp/index.html). Additional information about this and other EUA tests can be found in provider and patient fact sheets at the following FDA website: https://www.fda.gov/medical-devices/utuhdgfxiup-xviyxye-3591-blafe-03-igtmbyxlj- use-a vnunhefluftqj-wvnfdtb-wbnplnb/fmfsj-xcqolqjnlqb-uofb SARS-CoV-2 Source [employer] MA RY [facility] LAB[facility]ORY Nasopharyngeal Swab 02/23/20 12:40 AM EST 02/22/2021 2:27 AM EST Comment:Symptoms->Surveillan ce Narrative Resulting Agency Comment Spec In Lab Lea Macdonald MD MICROBIOLOGY - GENE RAL ORDERABLES Performing Organization Address City/[facility]/ZIP Co de Phone Number [facility] [place] [address] * POCT Glucose (02/21/2021 10:05 PM EST) Pathologist [facility] POC Glucose 128 65 - 199 mg/dL [facility] Comment: Supplemental ranges: <140 mg/dL before meals <180 mg/dL all other times of the day Blood 02/21/2021 10:0 5 PM EST 02/21/2021 10:05 PM EST Lea Macdonald MD POINT OF CARE TEST ORDERABLES Performing Organization Address City/[facility]/ZIP Co de Phone Number [facility] [place] [address] * Magnesium (02/21/2021 10:05 PM EST) Pathologist [facility] Magnesium 0.95 0.69 - 1.07 mmol/L [facility] Blood 02/21/2021 10:0 5 PM EST 02/21/2021 10:24 PM EST Narrative Resulting Agency Comment Spec In Lab Lea Macdonald MD CHEMISTRY ORDERABLE S [facility] [place] [address] * (ABNORMAL) BMP w/fasting Glucose (02/21/2021 10:05 PM EST) Glucose Fasting 125(H) 65 - 99 mg/dL [facility] Comment: ?Fasting* Glucose Interpretive Criteria Normal [...] of Diabetes Mellitus, Position Statement from the [place] [employer]. ??Diabetes Care, Volume 33, Supplement 1, Mar 2009 BUN 21(H) 8 - 18 mg/dL [facility] Creatinine 1.07 0.70 - 1.20 mg/dL [facility] Sodium 142 135 - 145 mmol/L [facility] Potassium 3.9 3.5 - 5.0 mmol/L [facility] Comment: Please note: ??Patients with WBC >100,000 may have falsely elevated Potassium levels. ??For accurate Potassium quantification in these patients send serum separator tube (gold top) for subsequent determinations. ??Contact the Clinical Chemistry Laboratory if there are any questions. Chloride 101 98 - 107 mmol/L [facility] CO2 29 22 - 31 mmol/L [facility] Anion Gap 12 5 - 15 mmol/L [facility] Calcium 9.4 8.5 - 10.5 mg/dL [facility] Estimated GFR 54(L) >=60 mL/min/1. 73 m?? [facility] Comment: This patient? s estimated glomerular filtration rate (eGFR) is between 54 mL/min/1.73 m2 (patients with less muscle mass) and 63 mL/min/1.73 m2 (patients with more muscle mass) [...] symptoms in addition to eGFR. Blood 02/21/2021 10:0 5 PM EST 02/21/2021 10:24 PM EST Narrative Resulting Agency Comment Spec In Lab Lea Macdonald MD CHEMISTRY ORDERABLE S [facility] [place] [place] [address] * XR Chest One View (02/21/2021 5:00 PM EST) Anatomical Region Laterality Modality Chest N/A Digital Radiogra phy Impressions 02/21/2021 5:16 PM EST Severely enlarged cardiac silhouette; suspect combination of dilated cardiomyopathy and pericardial effusion. Thank you for letting us participate in the care of this patient. ??If you are a health care provider and have any questions regarding this report, please contact the number below. ??For patients who have questions please contact the health pet care technician that requested your imaging first. ? Electronically signed by: Cara Fam [facility] ([phone]), at 02/21/2021 5:16 PM Narrative 02/21/2021 5:16 PM EST EXAMINATION: XR CHEST ONE VIEW CLINICAL HISTORY: sob TECHNIQUE: 1 view of the chest COMPARISON: None FINDINGS: Severe enlargement of the cardiac silhouette. Findings are concerning for any combination of markedly dilated cardiomyopathy and large pericardial effusion. Pulmonary vascular congestion. No obvious effusion on single frontal view. Procedure Note Craa Huston MD - 02/21/2021 EXAMINATION: XR CHEST ONE VIEW CLINICAL HISTORY: sob TECHNIQUE: 1 view of the chest COMPARISON: None FINDINGS: Severe enlargement of the cardiac silhouette. Findings are concerning forany combination of markedly dilated cardiomyopathy and large pericardialeffusion. Pulmonary vascular congestion. No obvious effusion on single frontalview. IMPRESSION Severely enlarged cardiac silhouette; suspect combination of dilated cardiomyopathy and pericardial effusion. Thank you for letting us participate in the care of this patient. If youare a health care provider and have any questions regarding this report,please contact the number below. For patients who have questions please contactthe health pet care technician that requested your imaging first. Lea Macdonald MD IMG DX ORDERABLES * Folate, serum (02/21/2021 4:55 PM EST) Folate Lvl >20.0 4.8 - 24.2 ng/mL [facility] Blood 02/21/2021 4:55 PM EST 02/21/2021 5:08 PM EST Narrative Resulting Agency Comment Spec In Lab Lea Macdonald MD CHEMISTRY ORDERABLE S [facility] [place] [address] * Vitamin B12 (02/21/2021 4:55 PM EST) Vitamin B-12 302 232 - 1,245 pg/mL [facility] Blood 02/21/2021 4:55 PM EST 02/21/2021 5:08 PM EST Narrative Resulting Agency Comment Spec In Lab Lea Macdonald MD CHEMISTRY ORDERABLE S [facility] [place] [address] * Vitamin D, 25-Hydroxy (02/21/2021 4:55 PM EST) 25-OH Vit D Total 57 21 - 100 ng/mL [facility] 25-OH Vit D Interp Sufficient [facility] Blood 02/21/2021 4:55 PM EST 02/21/2021 5:08 PM EST Narrative Resulting Agency Comment Spec In Lab Lea Macdonald MD CHEMISTRY ORDERABLE S [facility] [place] [address] * (ABNORMAL) Iron and TIBC (02/21/2021 4:55 PM EST) Iron 60 30 - 150 mcg/dL [facility] TIBC 343 250 - 450 mcg/dL [facility] Iron Saturation 17(L) 20 - 50 % [facility] Blood 02/21/2021 4:55 PM EST 02/21/2021 5:09 PM EST Narrative Resulting Agency Comment Spec In Lab Lea Macdonald MD CHEMISTRY ORDERABLE S [facility] [place] [address] * Ferritin (02/21/2021 4:55 PM EST) Ferritin 145 30 - 400 ng/mL [facility] Comment: Pediatric reference ranges not verified at [facility], interpret with caution. Reference ranges for females greater than 50 years of age approach values for men, i.e., 30-400 ng/mL. Blood 02/21/2021 4:55 PM EST 02/21/2021 5:08 PM EST Narrative Resulting Agency Comment Spec In Lab Lea Macdonald MD CHEMISTRY ORDERABLE S [facility] [place] [address] * TSH Rabun (02/21/2021 4:55 PM EST) [facility] TSH 3.99 0.27 - 4.20 mcIU/mL [facility] Comment: Reference Interval (mcIU/mL): Females: ??First Trimester: 0.23-3.88 ??Second Trimester: 0.22-3.90 ??Third Trimester: 0.44-4.66 Blood 02/21/2021 4:55 PM EST 02/21/2021 5:08 PM EST Narrative Resulting Agency Comment Spec In Lab Lea Macdonald MD CHEMISTRY ORDERABLE S Performing Organization Address [facility]/ZIP Co de Phone Number [facility] [place] [address] * Lactate, whole blood, send to lab ([facility]) (02/21/2021 4:26 PM EST) [facility] Lactate WB 1.5 0.5 - 2.2 mmol/L [facility] Blood 02/21/2021 4:26 PM EST 02/21/2021 4:26 PM EST Narrative Resulting Agency Comment Spec In Lab Lea Macdonald MD CHEMISTRY ORDERABLE S [facility] [place] [address] * POCT Glucose (02/21/2021 4:16 PM EST) [facility] POC Glucose 124 65 - 199 mg/dL [facility] Comment: Supplemental ranges: <140 mg/dL before meals <180 mg/dL all other times of the day Blood 02/21/2021 4:16 PM EST 02/21/2021 4:16 PM EST Lae Macdonald MD POINT OF CARE TEST ORDERABLES [facility] [place] [address] * Type and Screen Validity (02/21/2021 4:05 PM EST) [facility] T&S only valid at [facility] LABORATORY Comment:This Type and Screen result is only valid at the [facility] Blood 02/21/2021 4:05 PM EST 02/21/2021 4:17 PM EST Narrative Resulting Agency Comment Spec In Lab Harry Aguilar DO BLOOD BANK LAB ORDER CHRISTINE Performing Organization Address City/[facility]/ZIP Co de Phone Number [facility] [place] [address] * ABORH Recheck Status (02/21/2021 4:05 PM EST) [facility] ABORH Recheck Order Order Placed [facility] ABORH Type Recheck Complete [facility] Blood 02/21/2021 4:05 PM EST 02/21/2021 4:17 PM EST Narrative Resulting Agency Comment Spec In Lab Harry Harmani DO BLOOD BANK LAB ORDER CHRISTINE Performing Organization Address City/[facility]/ZIP Co de Phone Number [facility] [place] [address] * (ABNORMAL) Differential, Automated (02/21/2021 4:05 PM EST) Neutrophils % 60.4 % [facility] LABORAT[facility] Neutr Abs (ANC) 6.17(H) 1.70 - 6.10 x10(3)/[facility] LABORATORY Lymphocytes % 31.3 % [facility] Lymphocytes Abs 3.2 0.9 - 3.2 x10(3)/[facility] LABORATORY Monocytes % 6.3 % [facility] Monocyte Abs 0.6 0.3 - 0.9 x10(3)/[facility] LABORATORY Eosinophils % 1.1 % [facility] Eosinophils Abs 0.1 0.0 - 0.4 x10(3)/[facility] LABORATORY Basophils % 0.6 % [facility] Basophils Abs 0.1 0.0 - 0.1 x10(3)/[facility] LABORATORY Immature Gran % 0.30 % [facility] Comment: Immature granulocytes(IG's)percentage and absolute count will include metamyelocytes, myelocytes, and promyelocytes. Blood smears from CBCs yielding IG's will be scanned manually for concordance. If this scan disagrees with the automated IG or if promyelocytes are noted, a manual differential will be performed. Nelida Gran Abs 0.03 0.00 - 0.04 x10(3)/[facility] LABORATORY Blood 02/21/2021 4:05 PM EST 02/21/2021 4:23 PM EST Narrative Resulting Agency Comment Spec In Lab Harry Aguilar DO HEMATOLOGY ORDERABLE S [facility] [place] [address] * (ABNORMAL) Hemogram (02/21/2021 4:05 PM EST) WBC 10.2(H) 4.0 - 9.5 x10(3)/[facility] LABORATORY RBC 4.74 4.00 - 5.21 x10(6)/[facility] LABORATORY Hemoglobin 14.5 11.7 - 15.5 g/dL [facility] Hematocrit 43.1 35.7 - 45.8 % [facility] MCV 90.9 82.6 - 94.4 [facility] LABORATORY MCH 30.6 27.1 - 32.0 pg [facility] MCHC 33.6 31.7 - 35.0 g/dL [facility] Platelets 294 145 - 357 x10(3)/[facility] LABORATORY RDWSD 47.9(H) 37.0 - 46.0 fL [facility] RDWCV 14.5(H) 11.5 - 14.1 % [facility] MPV 9.0 7.6 - 12.9 [facility] LABORATORY nRBC % Auto 0.0 % [facility] nRBC Abs Auto 0.000 0.000 - 0.000 x10(3)/[facility] LABORATORY Blood 02/21/2021 4:05 PM EST 02/21/2021 4:23 PM EST Narrative Resulting Agency Comment Spec In Lab [facility] DO HEMATOLOGY ORDERABLE S Performing Organization Address City/[facility]/ZIP Co de Phone Number [facility] [place] [address] * Antibody screen (02/21/2021 4:05 PM EST) Ab Screen Interp Negative [facility] Expires at [id number] on: 02/24/2021 [facility] Blood 02/21/2021 4:05 PM EST 02/21/2021 4:17 PM EST Narrative Resulting Agency Comment Spec In Lab [employer] DO BLOOD BANK LAB ORDER CHRISTINE [facility] [place] [address] * ABO/Rh Typing (02/21/2021 4:05 PM EST) ABORH Type A Pos [facility]ORATORY Blood 02/21/2021 4:05 PM EST 02/21/2021 4:17 PM EST Narrative Resulting Agency Comment Spec In Lab Harry Aguilar DO BLOOD BANK LAB ORDER CHRISTINE [facility] [place] [address] * (ABNORMAL) Phosphorus (02/21/2021 4:05 PM EST) [facility] Phosphorus 5.1(H) 2.5 - 4.5 mg/dL [facility] Blood 02/21/2021 4:05 PM EST 02/21/2021 4:23 PM EST Narrative Resulting Agency Comment Spec In Lab Lea Macdonald MD CHEMISTRY ORDERABLE S Performing Organization Address City/[facility]/ZIP Co de Phone Number [facility] [place] [address] * (ABNORMAL) Magnesium (02/21/2021 4:05 PM EST) [facility] Magnesium 0.68(L) 0.69 - 1.07 mmol/L [facility] Blood 02/21/2021 4:05 PM EST 02/21/2021 4:23 PM EST Narrative Resulting Agency Comment Spec In Lab Lea Macdonald MD CHEMISTRY ORDERABLE S Performing Organization Address City/[facility]/ZIP Co de Phone Number [facility] [place] [address] * (ABNORMAL) Basic Metabolic Panel (non-fasting) (02/21/2021 4:05 PM EST) [facility] Glucose Lvl 128 65 - 199 mg/dL [facility] Comment:Diabetes: >=200 mg/d L plus symptoms BUN 21(H) 8 - 18 mg/dL [facility] Creatinine 0.99 0.70 - 1.20 mg/dL [facility] Sodium 140 135 - 145 mmol/L [facility] Potassium 3.8 3.5 - 5.0 mmol/L [facility] Comment: Please note: ??Patients with WBC >100,000 may have falsely elevated Potassium levels. ??For accurate Potassium quantification in these patients send serum separator tube (gold top) for subsequent determinations. ??Contact the Clinical Chemistry Laboratory if there are any questions. Chloride 102 98 - 107 mmol/L [facility] CO2 22 22 - 31 mmol/L [facility] Anion Gap 16(H) 5 - 15 mmol/L [facility] Calcium 9.6 8.5 - 10.5 mg/dL [facility] Estimated GFR 59(L) >=60 mL/min/1. 73 m?? [facility] Comment: This patient? s estimated glomerular filtration rate (eGFR) is between 59 mL/min/1.73 m2 (patients with less muscle mass) and 69 mL/min/1.73 m2 (patients with more muscle mass) [...] symptoms in addition to eGFR. Blood 02/21/2021 4:05 PM EST 02/21/2021 4:23 PM EST Narrative Resulting Agency Comment Spec In Lab Lea Macdonald MD CHEMISTRY ORDERABLE S [facility] [place] [address] * (ABNORMAL) APTT (02/21/2021 4:05 PM EST) PTT 51(H) 25 - 37 sec [facility] Comment: The PTT is NOT appropriate for heparin monitoring. Use the Anti-Xa level for heparin monitoring (HEP UFH) or LMWH monitoring (HEP LMW). A PTT less than 37 seconds generally indicates adequate hemostasis. Blood 02/21/2021 4:05 PM EST 02/21/2021 4:23 PM EST Narrative Resulting Agency Comment Spec In Lab Lea Macdonald MD HEMATOLOGY ORDERABL ES Performing Organization Address [facility] de Phone Number [facility] [place] [address] * (ABNORMAL) Prothrombin Time (02/21/2021 4:05 PM EST) PT 13.1(H) 9.4 - 12.5 sec [facility] INR 1.2 [facility] Comment: An INR <2.0 indicates adequate procoagulant activity for hemostasis in most patients without underlying bleeding disorders, though the INR may not adequately reflect hemostatic capacity in patients with liver disease and synthetic impairment. The recommended target INR range for therapeutic anticoagulation is 2.0 ? 3.0 for most applications, though lower and higher ranges may be appropriate depending on clinical circumstances. Blood 02/21/2021 4:05 PM EST 02/21/2021 4:23 PM EST Narrative Resulting Agency Comment Spec In Lab Lea Macdonald MD HEMATOLOGY ORDERABL ES Performing Organization Address [facility] de Phone Number [facility] [place] [address] * CARDIAC CATHETERIZATION (02/21/2021 3:40 PM EST) Anatomical Region Laterality Modality Other Narrative 02/21/2021 5:34 PM EST ?[facility] ? Cardiac Catheterization/Intervention Report ? Patient Name: [place], Stacy ? Procedure Date: 02/21/2021 ? A #: [id number] ? Primary Physician: Lea Hodges I ? Case #: [id number] ? File Name: [id number] ? Catheterization Order Number: [id number] ? [facility] ?Supervisor [facility] ? Final Report [place], [place] ? Patient Name: ? Stacy [place] ?ID#: ?[id number] ? : ?1955 ? Procedure Date: ? February 21, 2021 ?Case #: ? [id number] ? Room: ? 6 ? Case Physician: ? Lea Hodges M.D. ? Start: ?13:24 ?Fellow: ? Raj Trivedi M.D. ?Admission: ??02/21/2021 ? Referring Physician: ??Gerry Hall M.D. ? Procedures: ?* Coronary Angiography ?* Left Heart Catheterization ?* Arterial Blood Gases ? History ?Stacy Esparza is a 65 year old woman. She has hypertension and a family ?history of coronary artery disease. The patient's smoking status is ?Current with Current - Every Day frequency, using cigarettes. Cigarette ?use is Heavy (>=10/day). She has hypercholesterolemia managed with lipid ?therapy. The patient has a prior history of coronary artery disease. She ?had a remote coronary intervention procedure. The patient has a history ?of an ejection fraction less than or equal to 35% and dilated ?cardiomyopathy. She has a history of CHF. The CHF is NYHA Functional ?Class II and is classified as Systolic. Prior to the initiation of this ?procedure, the patient was designated as ASA Class III. The HA clinical ?frailty scale is 4: Vulnerable. ? Diagnostic Tests: ?Prior Coronary Angiography: ? Prior coronary angiography was performed on 05/06/2012 and showed ? obstructive CAD. LV ejection fraction within 6 months is 25%. ?Electrocardiography: ? EKG was assessed by ECG. EKG was Abnormal. EKG showed T-wave ? inversions and other abnormality. ?Medications Prior to Procedure: ? Aspirin, Angiotensin II Receptor Myrna, Beta Myrna and Statin. ? Indications for Diagnostic Cath: ?The priority of the diagnostic procedure was Elective. 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 Chest pain symptom assessment was: ?Asymptomatic. ? Technique: ?A 6Fr sheath was inserted in the right radial artery utilizing the ?Seldinger technique. A 6Fr sheath was inserted in the right femoral ?artery utilizing the Seldinger technique. The left coronary artery was ?injected utilizing a 5Fr JL 3.5 catheter. A 6Fr 3DRC catheter was used to ?inject the right coronary artery. Left ventricular pressure was performed ?utilizing a 5Fr JR 4 catheter. 3,000 units of heparin were administered. ?A total of 150cc of Omnipaque were opened, 102cc of Omnipaque were ?administered and 48cc of Omnipaque were wasted. Radiation: Fluoro time ?was 19.3 minutes, dose area product was 52,000 mGYcm2 and air kerma was ?465 mGY. See the case log for additional details. ?The patient received the following medications prior to and during the ?procedure: ? Unfractionated Heparin. ? Hemodynamics: ?Left Heart Pressures ? Resting: ? Syst Diast ? EDP ?a ?v ? m ?Ao 131 ?? 80 ?100 ?LV 137 ? 40 ? Coronary Angiography: ?Dominance: Right ?Left Main ? The left main was normal, free of disease. ?Left Anterior Descending ? There was a 50% long segmental stenosis of the mid segment of the ? left anterior descending artery (LAD). ??The LAD was large. ?Left Circumflex ? There was mild diffuse (<=25% stenosis) disease of the entire vessel ? segment of the left circumflex artery (LCX). ?Right Coronary Artery ? There was a single discrete total occlusion of the mid segment of ? the right coronary artery (RCA). ??The RCA was moderate in size. ? Distal flow was via collaterals from the LAD. ? Vascular Access: ?Vascular Access Angiogram: ? A selective angiogram at the right radial artery revealed Occluded R ? axillary. ? A selective angiogram at the right femoral artery revealed mild ? diffuse disease. ?Vascular Access Management: ? Mechanical Compression of the right radial artery access site was ? performed. ? A 6 Fr Perclose was deployed at the right femoral artery access ? site. This device was successful. Manual Compression of the right ? femoral artery access site was performed. ? Point of Care Testing: ?ABG: ? Arterial Blood gasses were performed using the I-Stat analyzer at ? 15:35: pH: 7.27, pCO2: 61.4, pO2: 320.0, sPO2: 100%, HCO3: 28 on ? FIO2: bipap. ?I-Stat: ? I-Stat was performed using the I-Stat analyzer at 15:35: Na+: 139, ? K+: 4.2, Hct: 43%, Hb: 14.6. ? Conclusions: ?* Two vessel coronary artery disease (LAD and RCA) ?* Elevated left ventricular end diastolic pressure ? Complications/Events: ?The patient had no complications during these procedures. ? Recommendations: ?Based upon the results of this procedure, it was recommended that the ?patient be managed with medical therapy. ? Comments: ?Findings: ?- 100% RCA occlusion of the distal-vessel that is ISR. Collaterals ?supplied from the LAD system. ?- LVEDP 45 and required rescue bipap during the procedure. Started nisa ?nitro gtt. Admission for IV diuresis and bipap. ?The attending physician was present for the entire procedure. ?Dr. Lea Hodges M.D. was present during the moderate sedation ?intraservice time as documented by the sedation nurse. ??Case time = 01:22. ?Dr. Lea Hodges M.D. performed the coronary angiography, left heart ?catheterization and ABG. ? Lea Hodges M.D. ? Electronically Signed by: Lea Hodges M.D. ? Report Finalized: 02/21/2021 ??17:25 ? Procedure Note Lea Hodges I MD - 11/30/2021 [facility] Cardiac Catheterization/Intervention Report Patient Name: Stacy Esparza Procedure Date: 02/21/2021 A #: [id number] Primary Physician: Lea Hodges I Case #: [id number] File Name: [id number] Catheterization Order Number: [id number] [facility] FinalReport [place], [place] Patient Name: Stacy Esparza ID#:[id number] :[id number] Procedure Date: February 21, 2021 Case #: [id number] Room: 6 Case Physician: Lea Hodges M.D. Start: 13:24 Fellow: Raj Trivedi M.D. Admission:02/21/2021 Referring Physician: Gerry Hall M.D. Procedures: * Coronary Angiography * Left Heart Catheterization * Arterial Blood Gases History Stacy Esparza is a 65 year old woman. She has hypertension and afamily history of coronary artery disease. The patient's smoking status is Current with Current - Every Day frequency, using cigarettes.Cigarette use is Heavy (>=10/day). She has hypercholesterolemia managed withlipid therapy. The patient has a prior history of coronary artery disease.She had a remote coronary intervention procedure. The patient has ahistory of an ejection fraction less than or equal to 35% and dilated cardiomyopathy. She has a history of CHF. The CHF is NYHA Functional Class II and is classified as Systolic. Prior to the initiation ofthis procedure, the patient was designated as ASA Class III. The CSHAclinical frailty scale is 4: Vulnerable. Diagnostic Tests: Prior Coronary Angiography: Prior coronary angiography was performed on 05/06/2012 andshowed obstructive CAD. LV ejection fraction within 6 months is 25%. Electrocardiography: EKG was assessed by ECG. EKG was Abnormal. EKG showed T-wave inversions and other abnormality. Medications Prior to Procedure: Aspirin, Angiotensin II Receptor Myrna, Beta Myrna andStatin. Indications for Diagnostic Cath: The priority of the diagnostic procedure was Elective. 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 Chest pain symptom assessmentwas: Asymptomatic. Technique: A 6Fr sheath was inserted in the right radial artery utilizing the Seldinger technique. A 6Fr sheath was inserted in the right femoral artery utilizing the Seldinger technique. The left coronary arterywas injected utilizing a 5Fr JL 3.5 catheter. A 6Fr 3DRC catheter wasused to inject the right coronary artery. Left ventricular pressure wasperformed utilizing a 5Fr JR 4 catheter. 3,000 units of heparin wereadministered. A total of 150cc of Omnipaque were opened, 102cc of Omnipaque were administered and 48cc of Omnipaque were wasted. Radiation: Fluorotime was 19.3 minutes, dose area product was 52,000 mGYcm2 and air kermawas 465 mGY. See the case log for additional details. The patient received the following medications prior to and duringthe procedure: Unfractionated Heparin. Hemodynamics: Left Heart Pressures Resting: Syst Diast EDP a v m Ao 131 80 100 LV 137 40 Coronary Angiography: Dominance: Right Left Main The left main was normal, free of disease. Left Anterior Descending There was a 50% long segmental stenosis of the mid segment ofthe left anterior descending artery (LAD). The LAD was large. Left Circumflex There was mild diffuse (<=25% stenosis) disease of the entirevessel segment of the left circumflex artery (LCX). Right Coronary Artery There was a single discrete total occlusion of the mid segmentof the right coronary artery (RCA). The RCA was moderate in size. Distal flow was via collaterals from the LAD. Vascular Access: Vascular Access Angiogram: A selective angiogram at the right radial artery revealedOccluded R axillary. A selective angiogram at the right femoral artery revealed mild diffuse disease. Vascular Access Management: Mechanical Compression of the right radial artery access sitewas performed. A 6 Fr Perclose was deployed at the right femoral artery access site. This device was successful. Manual Compression of theright femoral artery access site was performed. Point of Care Testing: ABG: Arterial Blood gasses were performed using the I-Stat analyzerat 15:35: pH: 7.27, pCO2: 61.4, pO2: 320.0, sPO2: 100%, HCO3: 28on FIO2: bipap. I-Stat: I-Stat was performed using the I-Stat analyzer at 15:35: Na+:139, K+: 4.2, Hct: 43%, Hb: 14.6. Conclusions: * Two vessel coronary artery disease (LAD and RCA) * Elevated left ventricular end diastolic pressure Complications/Events: The patient had no complications during these procedures. Recommendations: Based upon the results of this procedure, it was recommended thatthe patient be managed with medical therapy. Comments: Findings: - 100% RCA occlusion of the distal-vessel that is ISR. Collaterals supplied from the LAD system. - LVEDP 45 and required rescue bipap during the procedure. Startedona nitro gtt. Admission for IV diuresis and bipap. The attending physician was present for the entire procedure. Dr. Lea Hodges M.D. was present during the moderate sedation intraservice time as documented by the sedation nurse. Case time =01:22. Dr. Lea Hodges M.D. performed the coronary angiography, leftheart catheterization and ABG. Lea Hodges M.D. Electronically Signed by: Lea Hodges M.D. Report Finalized: 02/21/2021 17:25 Lea Macdonald MD CARDIAC CATH ORDERA BLES * EKG 12 Lead (02/21/2021 10:22 AM EST) Ventricular rate 89 BPM MUSE SYSTEM Atrial Rate 89 BPM MUSE SYSTEM P-R Interval 142 ms MUSE SYSTEM QRS Duration 114 ms MUSE SYSTEM Q-T Interval 406 ms MUSE SYSTEM QTC Calculated (Bezet) 493 ms MUSE SYSTEM Calculated P [place] 69 degrees MUSE SYSTEM Calculated R [place] -75 degrees MUSE SYSTEM Calculated T [place] 107 degrees MUSE SYSTEM INTERPRETATION Significant artifact present Normal sinus rhythm Possible Left atrial enlargement Left axis deviation Abnormal ECG T-wave inversion in Anterior leads When compared with ECG of 06-MAY-2012 12:01, QRS axis Shifted left Confirmed by fellow MD Мария, Lucio ([id number]) on 02/21/2021 11:56:48 AM Confirmed by MD Lawrence, Karl ([id number]) on 02/21/2021 12:52:51 PM MUSE SYSTEM 02/21/2021 10:2 2 AM EST 02/21/2021 12:52 PM EST Lea Macdonald MD ECG ORDERABLES MUSE SYSTEM documented in this encounter Visit Diagnoses Diagnosis Screening for cardiovascular condition Screening for other and unspecified cardiovascular conditions Cardiomyopathy, unspecified type HFrEF (heart failure with reduced ejection fraction) CAD (coronary artery disease) Coronary atherosclerosis of unspecified type of vessel, [place] or graft Screening for cardiovascular condition Screening for other and unspecified cardiovascular conditions Cardiomyopathy, unspecified type HFrEF (heart failure with reduced ejection fraction) documented in this encounter Admitting Diagnoses Diagnosis CAD (coronary artery disease) Coronary atherosclerosis of unspecified type of vessel, [place] or graft documented in this encounter Administered Medications Inactive Administered Medications - up to 3 most recent administrations Medication Order MAR Action Action Date Dose Rate Site aspirin EC tablet 81 mg 81 mg, Oral, DAILY, First dose on Sat02/21/21 at 1645, Until Discontinued, Routine Given 02/25/2021 9:05 PM EST 81 mg Given 02/24/2021 8:04 PM EST 81 mg Given 02/23/2021 8:10 PM EST 81 mg atorvastatin (Lipitor) tablet 80 mg 80 mg, Oral, EVERY EVENING, First dose on Sat02/22/21 at 1700, Until Discontinued, Routine Given 02/25/2021 5:14 PM EST 80 mg Given 02/24/2021 4:46 PM EST 80 mg Given 02/23/2021 5:29 PM EST 80 mg benzonatate (Tessalon) capsule 100 mg 100 mg, Oral, 3 TIMES DAILY PRN, Starting on Araceli 02/23/21 at 1317, Until 02/26/21 at 1336, Cough, DO NOT CRUSH OR OPEN, Routine Given 02/24/2021 4:51 PM EST 100 mg Given 02/23/2021 1:42 PM EST 100 mg dextrose 10% infusion 250 mL, at 1,000 mL/hr, Intravenous, EVERY 30 MIN PRN, Starting on Sat02/21/21 at 1803, Until Sat02/26/21 at 1336, For BG 50-70 mg/dL: Oral treatment preferred: [...] for the duration of the active insulin. enoxaparin (Lovenox) (40 mg/0.4 mL) subcutaneous injection 40 mg 40 mg, Subcutaneous, NIGHTLY, First dose on Sat02/21/21 at 2100, Until Discontinued, Routine Given 02/25/2021 9:06 PM EST 40 mg Given 02/24/2021 8:04 PM EST 40 mg Given 02/23/2021 8:10 PM EST 40 mg famotidine (Pepcid) tablet 20 mg 20 mg, Oral, 2 TIMES DAILY, First dose on Sat02/21/21 at 2100, Until Discontinued, Routine Given 02/26/2021 8:4 8 AM EST 20 mg Given 02/25/2021 9:05 PM EST 20 mg Given 02/25/2021 8:57 AM EST 20 mg furosemide (Lasix) (10 mg/mL) injection 40 mg 40 mg, Intravenous, ONCE, 1 dose, On Sat02/22/21 at 1100, Routine Given 02/22/2021 10:46 AM EST 40 mg furosemide (Lasix) (10 mg/mL) injection 40 mg 40 mg, Intravenous, ONCE, 1 dose, On Araceli 02/23/21 at 0945 Given 02/23/2021 9:02 AM EST 40 mg furosemide (Lasix) (10 mg/mL) injection 80 mg 80 mg, Intravenous, ONCE, 1 dose, On Araceli 02/23/21 at 1700, Routine Given 02/23/2021 5:27 PM EST 80 mg furosemide (Lasix) (10 mg/mL) injection 80 mg 80 mg, Intravenous, ONCE, 1 dose, On Sat02/24/21 at 1045, Routine Given 02/24/2021 10:06 AM EST 80 mg furosemide (Lasix) (10 mg/mL) injection 80 mg 80 mg, Intravenous, ONCE, 1 dose, On Sat02/24/21 at 1700, Routine Given 02/24/2021 4:45 PM EST 80 mg furosemide (Lasix) (10 mg/mL) injection 80 mg 80 mg, Intravenous, ONCE, 1 dose, On 02/25/21 at 0300, Routine Given 02/25/2021 3:28 AM EST 80 mg gadoterate meglumine (Dotarem) (0.5 mMol/mL) injection solution 0-100 mL 0-100 mL, Intravenous, ONCE PRN, 1 dose, Starting on Araceli 02/23/21 at 1153, Until 02/26/21 at 1336, Per Protocol, Radiology Contrast, Routine glucagon (Glucagen) (1 mg/mL) injection solution 1 mg 1 mg, Intramuscular, EVERY 30 MIN PRN, Starting on 02/21/21 at 1803, Until 02/26/21 at 1336, Low blood sugar, For BG 50-70 mg/dL: [...] duration of the active insulin., Routine glucose (GLUTOSE) 40% oral geL 15-30 g, Buccal, EVERY 30 MIN PRN, Starting on Sat02/21/21 at 1803, Until 02/26/21 at 1336, Low blood sugar, For BG 50-70 mg/dL: [...] duration of the active insulin. 1 tube contains 15 grams of glucose (net weight of tube = 37.5 grams., Routine insulin lispro (HumaLOG;Admelog) (100 unit/mL) subcutaneous injection vial 1-5 Units 1-5 Units, Subcutaneous, 3 TIMES DAILY BEFORE MEALS, First dose on Sat02/22/21 at 0730, Until Discontinued, CORRECTION BOLUS [1-4 Units] Sensitive Sliding Scale (BG in mg/dL): Correction factor 40 (1 unit of insulin is expected to drop the glucose 40 mg/dL) BG 160 - 200 Give 1 unit BG 201 - 240 Give 2 units BG 241 - 280 Give 3 units BG greater than 280, give 4 units and recheck BG in 2 hours. - If recheck BG is LESS than 280, give no insulin and resume schedule - If recheck BG is GREATER than 280, give 4 units and repeat BG in 2 hours (no more than 3 times) & call for new insulin orders. DO NOT hold if NPO, unless specifically directed to do so by written order. Per Blood Glucose Monitoring Policy, re-check a BG of > 240 mg/dL in 2 hours., Routine Given 02/25/2021 8:43 AM EST 2 Units Given 02/22/2021 5:03 PM EST 1 Units ipratropium-albuteroL (Duoneb) 0.5 mg-3 mg(2.5 mg base)/3 mL nebulizer solution 3 mL 3 mL, Nebulization, 4 TIMES DAILY PRN, Starting on Araceli 02/23/21 at 1317, Until 02/26/21 at 1336, Wheezing, cough, shortness of breath, Routine Given 02/24/2021 4:51 PM EST 3 mLs Given 02/23/2021 3:02 PM EST 3 mLs iron sucrose (Venofer) 300 mg in sodium chloride 0.9% 115 mL infusion 300 mg, Intravenous, ONCE, 1 dose, On Sat02/22/21 at 1100, Administer over 90 Minutes, Patients should be closely monitored for signs of hypersensitivity during and for at least 30 min after each administration. New Bag 02/22/2021 10:46 AM EST 300 mg 76.7 mL/hr levothyroxine (Synthroid) tablet 100 mcg 100 mcg, Oral, DAILY, First dose (after last modification) on Sat02/24/21 at 0900, Until Discontinued, Routine Given 02/24/2021 9:00 AM EST 100 mcg levothyroxine (Synthroid) tablet 150 mcg 150 mcg, Oral, DAILY, First dose on Sat02/21/21 at 1645, Until Discontinued, Routine Given 02/23/2021 8:56 AM EST 150 mcg Given 02/22/2021 8:44 AM EST 150 mcg levothyroxine (Synthroid) tablet 50 mcg 50 mcg, Oral, DAILY, First dose (after last modification) on Sat02/25/21 at 0900, Until Discontinued, Routine Given 02/26/2021 8:48 AM EST 50 mcg Given 02/25/2021 8:57 AM EST 50 mcg losartan (Cozaar) tablet 25 mg 25 mg, Oral, DAILY, First dose on Sat02/24/21 at 1015, Until Discontinued, Routine Given 02/26/2021 8:48 AM EST 25 mg Given 02/25/2021 8:57 AM EST 25 mg Given 02/24/2021 11:35 AM EST 25 mg magnesium oxide (Mag-Ox) tablet 400 mg 400 mg, Oral, 2 TIMES DAILY, First dose on Sat02/21/21 at 2100, Until Discontinued, Routine Given 02/26/2021 8:48 AM EST 400 mg Given 02/25/2021 9:05 PM EST 400 mg Given 02/25/2021 8:57 AM EST 400 mg magnesium sulfate 2 g in sterile water 50 mL infusion 2 g, Intravenous, ONCE, 1 dose, On Sat02/21/21 at 1830, Administer over 120 Minutes Rate/Dose Verify 02/21/2021 6:30 PM EST 25 mL/hr New Bag 02/21/2021 6:14 PM EST 2 g 25 mL/hr magnesium sulfate 2 g in sterile water 50 mL infusion 2 g, Intravenous, ONCE, 1 dose, On Sat02/22/21 at 0845, Administer over 120 Minutes New Bag 02/22/2021 8:44 AM EST 2 g 25 mL/hr magnesium sulfate 2 g in sterile water 50 mL infusion 2 g, Intravenous, ONCE, 1 dose, On Sat02/25/21 at 0300, Administer over 120 Minutes New Bag 02/25/2021 3:28 AM EST 2 g 25 mL/hr metoprolol succinate XL (Toprol-XL) tablet 100 mg 100 mg, Oral, DAILY, First dose on 02/25/21 at 1700, Until Discontinued, DO NOT CRUSH OR OPEN, Routine Given 02/26/2021 8:48 AM EST 100 mg Given 02/25/2021 5:27 PM EST 100 mg metoprolol tartrate (Lopressor) tablet 12.5 mg 12.5 mg, Oral, EVERY 6 HOURS SCHEDULED, First dose on Sat02/23/21 at 1200, Until Discontinued, Hold for HR < 50, SBP < 90, Routine Given 02/24/2021 6:36 AM EST 12.5 mg Given 02/24/2021 12:40 AM EST 12.5 mg Given 02/23/2021 5:27 PM EST 12.5 mg metoprolol tartrate (Lopressor) tablet 25 mg 25 mg, Oral, EVERY 6 HOURS SCHEDULED, First dose (after last modification) on Sat02/24/21 at 1200, Until Discontinued, Hold for HR < 50, SBP < 90, Routine Given 02/25/2021 5:45 AM EST 25 mg Given 02/24/2021 5:06 PM EST 25 mg Given 02/24/2021 11:35 AM EST 25 mg perflutren lipid microspheres (Definity) injection 0.5 mL 0.5 mL, Intravenous, ONCE PRN, 1 dose, Starting on Sat02/22/21 at 1037, Until Sat02/22/21 at 1037, Other, for enhancement of sub-optimal echo images, Echo Lab (Intra-Procedure), Routine Given 02/22/2021 10:37 AM EST 0.5 mLs potassium chloride ER (K-Dur/Klor-Con) tablet 20 mEq 20 mEq, Oral, EVERY 4 HOURS PRN, Starting on Sat02/21/21 at 1725, Until Araceli 02/23/21 at 1029, hypokalemia, Administer for serum potassium (mMol/L) of 3.9 - 4 See instructions for Potassium Protocol in online policies., Routine Given 02/22/2021 12:05 AM EST 20 mEq potassium chloride ER (K-Dur/Klor-Con) tablet 40 mEq 40 mEq, Oral, EVERY 4 HOURS PRN, Starting on Sat02/21/21 at 1725, Until Araceli 02/23/21 at 1029, hypokalemia, Administer for serum potassium (mMol/L) of 3.6 - 3.8 See instructions for Potassium Protocol in online policies., Routine Given 02/21/2021 6:14 PM EST 40 mEq potassium chloride ER (K-Dur/Klor-Con) tablet 40 mEq 40 mEq, Oral, ONCE, 1 dose, On Sat02/24/21 at 1730, 20 mEq tablet may be dissolved in water for administration, Routine Given 02/24/2021 5:06 PM EST 40 mEq simvastatin (Zocor) tablet 20 mg 20 mg, Oral, NIGHTLY, First dose on Sat02/21/21 at 2100, Until Discontinued Given 02/21/2021 8:11 PM EST 20 mg sodium chloride 0.9 % (flush) (BD PosiFlush Normal Saline 0.9) flush 5 mL 5 mL, Intravenous, 2 TIMES DAILY, First dose on 02/21/21 at 2100, Until Discontinued, Routine Given 02/26/2021 8:56 AM EST 5 mLs Given 02/25/2021 9:07 PM EST 5 mLs Given 02/25/2021 8:58 AM EST 5 mLs sodium chloride 0.9% infusion 50 mL/hr, Intravenous, CONTINUOUS, Starting on Sat02/21/21 at 1045, Until Sat02/21/21 at 1244, Cath (Day of Procedure) New Bag 02/21/2021 11:04 AM EST 50 mL/hr 50 mL/hr spironolactone (Aldactone) tablet 12.5 mg 12.5 mg, Oral, DAILY, First dose on Araceli 02/23/21 at 1115, Until Discontinued, DO NOT SPLIT, CRUSH OR OPEN, Routine Given 02/26/2021 8:48 AM EST 12.5 mg Given 02/25/2021 8:57 AM EST 12.5 mg Given 02/24/2021 9:00 AM EST 12.5 mg torsemide (Demadex) tablet 40 mg 40 mg, Oral, 2 TIMES DAILY, First dose on 02/25/21 at 0900, Until Discontinued, Routine Given 02/26/2021 8:48 AM EST 40 mg Given 02/25/2021 5:14 PM EST 40 mg Given 02/25/2021 8:57 AM EST 40 mg documented in this encounter Active and Recently Administered Medications Times are shown in EST. Scheduled Medication Order 02/24/2021 02/25/2021 02/26/2021 aspirin EC tablet 81 mg 81 mg, Oral, DAILY, First dose on Sat02/21/21 at 1645, Until Discontinued, Routine 2003 (Given - Provider: Vonda Arango RN) 210 (Given - Provider: Vonda Arango RN) atorvastatin (Lipitor) tablet 80 mg 80 mg, Oral, EVERY EVENING, First dose on Sat02/22/21 at 1700, Until Discontinued, Routine 1646 (Given - Provider: Miguel A Nunes RN) 1714 (Given - Provider: Denisse Michaels RN) enoxaparin (Lovenox) (40 mg/0.4 mL) subcutaneous injection 40 mg 40 mg, Subcutaneous, NIGHTLY, First dose on Sat02/21/21 at 2100, Until Discontinued, Routine 2003 (Given - Provider: Vonda Arango RN) 2105 (Given - Provider: Vonda Arango RN) famotidine (Pepcid) tablet 20 mg 20 mg, Oral, 2 TIMES DAILY, First dose on Sat02/21/21 at 2100, Until Discontinued, Routine 0900 (Given - Provider: Jaziel Romero RN)2003 (Given - Provider: Vonda Arango RN) 08 (Given - Provider: Denisse Michaels, NIESHA)2104 (Given - Provider: Vonda Arango RN) 0848 (Given - Provider: Denisse Michaels, RN) furosemide (Lasix) (10 mg/mL) injection 80 mg (COMPLETED) 80 mg, Intravenous, ONCE, 1 dose, On Sat02/24/21 at 1045, Routine 1006 (Given - Provider: Sendy Myles RN) furosemide (Lasix) (10 mg/mL) injection 80 mg (COMPLETED) 80 mg, Intravenous, ONCE, 1 dose, On Sat02/24/21 at 1700, Routine 1645 (Given - Provider: Miguel A Nunes RN) furosemide (Lasix) (10 mg/mL) injection 80 mg (COMPLETED) 80 mg, Intravenous, ONCE, 1 dose, On Sat02/25/21 at 0300, Routine 0328 (Given - Provider: Vonda Arango RN) insulin lispro (HumaLOG;Admelog) (100 unit/mL) subcutaneous injection vial 1-5 Units(Linked Group 1) 1-5 Units, Subcutaneous, 3 TIMES DAILY BEFORE MEALS, First dose on Sat02/22/21 at 0730, Until Discontinued, CORRECTION BOLUS [1-4 Units] Sensitive Sliding Scale (BG in mg/dL): Correction factor 40 (1 unit of insulin is expected to drop the glucose 40 mg/dL) BG 160 - 200 Give 1 unit BG 201 - 240 Give 2 units BG 241 - 280 Give 3 units BG greater than 280, give 4 units and recheck BG in 2 hours. - If recheck BG is LESS than 280, give no insulin and resume schedule - If recheck BG is GREATER than 280, give 4 units and repeat BG in 2 hours (no more than 3 times) & call for new insulin orders. DO NOT hold if NPO, unless specifically directed to do so by written order. Per Blood Glucose Monitoring Policy, re-check a BG of > 240 mg/dL in 2 hours., Routine 0730 (Not Given - Provider: Jaziel Romero RN - Reason: Order parameters not met)1130 (Not Given - Provider: Jaziel Romero RN - Reason: Order parameters not met)1630 (Not Given - Provider: Miguel A Nunes RN - Reason: Order parameters not met) 0843 (Given - Provider: Denisse Michaels RN)1130 (Not Given - Provider: Denisse Michaels RN - Reason: Order parameters not met)1630 (Not Given - Provider: Denisse Michaels RN - Reason: Order parameters not met) 0730 (Not Given - Provider: Denisse Michaels RN - Reason: Order parameters not met)1130 (Due) levothyroxine (Synthroid) tablet 100 mcg (CANCELED) 100 mcg, Oral, DAILY, First dose (after last modification) on Sat02/24/21 at 0900, Until Discontinued, Routine 0900 (Given - Provider: Jaziel Romero RN) levothyroxine (Synthroid) tablet 50 mcg 50 mcg, Oral, DAILY, First dose (after last modification) on Sat02/25/21 at 0900, Until Discontinued, Routine 0857 (Given - Provider: Denisse Michaels RN) 0848 (Given - Provider: Denisse Michaels RN) losartan (Cozaar) tablet 25 mg 25 mg, Oral, DAILY, First dose on Sat02/24/21 at 1015, Until Discontinued, Routine 1135 (Given - Provider: Jaziel Romero RN) 0857 (Given - Provider: Denisse Michaels RN) 0848 (Given - Provider: Denisse Michaels RN) magnesium oxide (Mag-Ox) tablet 400 mg 400 mg, Oral, 2 TIMES DAILY, First dose on Sat02/21/21 at 2100, Until Discontinued, Routine 0900 (Given - Provider: Jaziel Romero RN)2004 (Given - Provider: Vonda Arango RN) 0857 (Given - Provider: Denisse Michaels RN)2105 (Given - Provider: Vonda Arango RN) 0848 (Given - Provider: Denisse Michaels, NIESHA) magnesium sulfate 2 g in sterile water 50 mL infusion (COMPLETED) 2 g, Intravenous, ONCE, 1 dose, On Sat02/25/21 at 0300, Administer over 120 Minutes 0328 (New Bag - Provider: Vonda Arango RN)0528 (Stopped - Provider: Cornell Cruz RN) metoprolol succinate XL (Toprol-XL) tablet 100 mg 100 mg, Oral, DAILY, First dose on Sat02/25/21 at 1700, Until Discontinued, DO NOT CRUSH OR OPEN, Routine 1727 (Given - Provider: Denisse Michaels, NIESHA) 0848 (Given - Provider: Denisse Michaels, NIESHA) metoprolol tartrate (Lopressor) tablet 12.5 mg (CANCELED) 12.5 mg, Oral, EVERY 6 HOURS SCHEDULED, First dose on Sat02/23/21 at 1200, Until Discontinued, Hold for HR < 50, SBP < 90, Routine 0040 (Given - Provider: Cornell Cruz RN)0636 (Given - Provider: Cornell Cruz RN) metoprolol tartrate (Lopressor) tablet 25 mg (CANCELED) 25 mg, Oral, EVERY 6 HOURS SCHEDULED, First dose (after last modification) on Sat02/24/21 at 1200, Until Discontinued, Hold for HR < 50, SBP < 90, Routine 1135 (Given - Provider: Jaziel Romero RN)1706 (Given - Provider: Miguel A Nunes RN) 0000 (Not Given - Provider: Vonda Arango RN - Reason: Order parameters not met)0545 (Given - Provider: Cornell Cruz RN) potassium chloride ER (K-Dur/Klor-Con) tablet 40 mEq (COMPLETED) 40 mEq, Oral, ONCE, 1 dose, On Sat02/24/21 at 1730, 20 mEq tablet may be dissolved in water for administration, Routine 1706 (Given - Provider: Miguel A Nunes RN) sodium chloride 0.9 % (flush) (BD PosiFlush Normal Saline 0.9) flush 5 mL 5 mL, Intravenous, 2 TIMES DAILY, First dose on Sat02/21/21 at 2100, Until Discontinued, Routine 0900 (Given - Provider: Jaziel Romero, RN)2004 (Given - Provider: Vonda Arango, RN) 0858 (Given - Provider: Denisse Michaels, NIESHA)2107 (Given - Provider: Vonda Arango, NIESHA) 0856 (Given - Provider: Denisse Michaels, RN) spironolactone (Aldactone) tablet 12.5 mg 12.5 mg, Oral, DAILY, First dose on Araceli 02/23/21 at 1115, Until Discontinued, DO NOT SPLIT, CRUSH OR OPEN, Routine 0900 (Given - Provider: Jaziel Romero, NIESHA) 0857 (Given - Provider: Denisse Michaels, NIESHA) 0848 (Given - Provider: Denisse Michaels, NIESHA) torsemide (Demadex) tablet 40 mg 40 mg, Oral, 2 TIMES DAILY, First dose on 02/25/21 at 0900, Until Discontinued, Routine 0857 (Given - Provider: Denisse Michaels RN)1714 (Given - Provider: Denisse Michaels, NIESHA) 0848 (Given - Provider: Denisse Michaels, RN) PRN Medication Order 02/24/2021 02/25/2021 02/26/2021 benzonatate (Tessalon) capsule 100 mg 100 mg, Oral, 3 TIMES DAILY PRN, Starting on Araceli 02/23/21 at 1317, Until 02/26/21 at 1336, Cough, DO NOT CRUSH OR OPEN, Routine 1651 (Given - Provider: Miguel A Nunes RN) dextrose 10% infusion(Linked Group 2) 250 mL, at 1,000 mL/hr, Intravenous, EVERY 30 MIN PRN, Starting on Sat02/21/21 at 1803, Until 02/26/21 at 1336, For BG 50-70 mg/dL: Oral treatment preferred: [...] for the duration of the active insulin. gadoterate meglumine (Dotarem) (0.5 mMol/mL) injection solution 0-100 mL 0-100 mL, Intravenous, ONCE PRN, 1 dose, Starting on Sat02/23/21 at 1153, Until Sat02/26/21 at 1336, Per Protocol, Radiology Contrast, Routine glucagon (Glucagen) (1 mg/mL) injection solution 1 mg(Linked Group 2) 1 mg, Intramuscular, EVERY 30 MIN PRN, Starting on Sat02/21/21 at 1803, Until Sat02/26/21 at 1336, Low blood sugar, For BG 50-70 mg/dL: [...] duration of the active insulin., Routine glucose (GLUTOSE) 40% oral geL(Linked Group 2) 15-30 g, Buccal, EVERY 30 MIN PRN, Starting on Sat02/21/21 at 1803, Until 02/26/21 at 1336, Low blood sugar, For BG 50-70 mg/dL: [...] duration of the active insulin. 1 tube contains 15 grams of glucose (net weight of tube = 37.5 grams., Routine ipratropium-albuteroL (Duoneb) 0.5 mg-3 mg(2.5 mg base)/3 mL nebulizer solution 3 mL 3 mL, Nebulization, 4 TIMES DAILY PRN, Starting on Araceli 02/23/21 at 1317, Until 02/26/21 at 1336, Wheezing, cough, shortness of breath, Routine 1651 (Given - Provider: Miguel A Nunes RN) lidocaine (Xylocaine) 1% (10 mg/mL) injection 3 mg 3 mg (0.3 mL), Subcutaneous, ONCE PRN, 1 dose, Starting on Sat02/21/21 at 1557, Until 02/26/21 at 1336, for discomfort with PIV insertion, Routine sodium chloride 0.9 % (flush) (BD PosiFlush Normal Saline 0.9) flush 5-20 mL 5-20 mL, Intravenous, EVERY 1 MIN PRN, Starting on Sat02/21/21 at 1557, Until 02/26/21 at 1336, flush, Flush pertains to all indwelling lines. Flush per protocol found in the job aid using the link provided on this medication record., Routine Linked Groups Order Group 1: POCT Fingerstick Glucose (CANCELED) Routine, 4 TIMES DAILY BEFORE MEALS & AT BEDTIME, First occurrence on Sat02/21/21 at 2200, Until Specified, Consider choosing FOUR TIMES A DAY BEFORE MEALS AND AT BEDTIME as frequency for: Patients who have good hypoglycemia awareness: -Patients who are eating meals during the day and sleeping at night -Patient who are otherwise stable And insulin lispro (HumaLOG;Admelog) (100 unit/mL) subcutaneous injection vial 1-5 UnitsJump to med 1-5 Units, Subcutaneous, 3 TIMES DAILY BEFORE MEALS, First dose on Sat02/22/21 at 0730, Until Discontinued, CORRECTION BOLUS [1-4 Units] Sensitive Sliding Scale (BG in mg/dL): Correction factor 40 (1 unit of insulin is expected to drop the glucose 40 mg/dL) BG 160 - 200 Give 1 unit BG 201 - 240 Give 2 units BG 241 - 280 Give 3 units BG greater than 280, give 4 units and recheck BG in 2 hours. - If recheck BG is LESS than 280, give no insulin and resume schedule - If recheck BG is GREATER than 280, give 4 units and repeat BG in 2 hours (no more than 3 times) & call for new insulin orders. DO NOT hold if NPO, unless specifically directed to do so by written order. Per Blood Glucose Monitoring Policy, re-check a BG of > 240 mg/dL in 2 hours., Routine Group 2: glucose (GLUTOSE) 40% oral geLJump to med 15-30 g, Buccal, EVERY 30 MIN PRN, Starting on Sat02/21/21 at 1803, Until 02/26/21 at 1336, Low blood sugar, For BG 50-70 mg/dL: [...] duration of the active insulin. 1 tube contains 15 grams of glucose (net weight of tube = 37.5 grams., Routine Or dextrose 10% infusionJump to med 250 mL, at 1,000 mL/hr, Intravenous, EVERY 30 MIN PRN, Starting on Sat02/21/21 at 1803, Until 02/26/21 at 1336, For BG 50-70 mg/dL: Oral treatment preferred: [...] Intramuscular, EVERY 30 MIN PRN, Starting on Sat02/21/21 at 1803, Until 02/26/21 at 1336, Low blood sugar, For BG 50-70 mg/dL: [...] Routine documented in this encounter Care Teams Adjunct Political Science Instructor Relationship Specialty Start Date End Date Angela Cotto MD [address] [place] [address] PCP - General Family Medicine 02/20/21 07/30/21 documented as of this encounter
--- OUTSIDE RECORDS SUMMARY | 2023-10-16 01:26 | XMS_ITS | Encounter Summary ---
Author Organization [facility] [place] [address] Care Team Providers Care Director Of Accreditation Name Role Phone Unavailable Primary Care Provider Unavailabl e Encounter Details Date Type Department Care Team (Late st Contact Info) Description 05/06/2012 7:50 AM EST Anesthesia Event [place] [phone] Gordo Pires MD [facility] [address] [place] [address] Anesthesia Record Procedure Summary Procedure Name Responsible Anesthesiologist Anesthesia Start Time Anesthesia Stop Time CARDIAC CATHETERIZATION Events No events on file. Meds * Agents No agents on file. * Blood No blood administrations on file. Lines, Drains, and Airways Type Details Placement Removal PIV 08/20/23; 1035; [id number] catheter system; 22 gauge; median cubital vein (antecubital fossa), right 08/20/23 1035 by Yary Curiel (RETIRED) Peripheral IV Line - Single Lumen 05/06/12; 0733; 05/07/12; 1012 05/06/12 0733 by Gypsy Day RN 05/07/12 1012 by Steven Servin RN LDA Cath/EP Sheath 05/06/12; 0818; 5 Peruvian (Fr); Right; Femoral 05/06/12 0818 by Marisol Mitchell RN 05/06/12 1215 by Chelsea Holland RN LDA Cath/EP Sheath 05/06/12; 0828; 6 Peruvian (Fr); Right; Femoral (vein) 05/06/12 0828 by Marisol Mitchell RN 05/06/12 1215 by Chelsea Holland RN (RETIRED) Peripheral IV Line - Single Lumen 02/21/21; 1058; cephalic vein (lateral side of arm), left; [id number] catheter system; Anatomical Landmarks; 20 gauge; .me; distraction; no longer indicated, removed per policy/procedure; 02/26/21; 1018 02/21/21 1058 by Elsa Brush RN 02/26/21 1018 by Denisse Macias RN LDA Cath/EP Sheath 02/21/21; 1314; 6 Peruvian (Fr); Right; Wrist; Arterial 02/21/21 1314 by Trena Kohler RN 02/21/21 1430 by Trena Kohler RN LDA Cath/EP Sheath 02/21/21; 1358; 6 Peruvian (Fr); Right; Femoral; Arterial 02/21/21 1358 by Trena Kohler RN 02/21/21 1448 by Trena Kohler RN Urethral Catheter 02/21/21; 1509; Use of diuretics, Physician order; indwelling double lumen catheter; 14; inserted at this facility; 1; 10; none; drainage bag to dependent drainage; urethral catheter removed, tubing intact, per protocol/policy; 02/21/21; 2215 02/21/21 1509 by Trena Kohler RN 02/21/21 2215 by Veronica Bernal RN (RETIRED) Peripheral IV Line - Single Lumen 12/12/21; 0731; basilic vein (medial side of arm), left; fzsg-ixe-kypaof catheter system; Anatomical Landmarks; 20 gauge; Lea [...] 10:30 AM EDT Appointment [place] [phone] [place] [address] 10/17/2023 11:40 AM EDT Office Visit Cardiology at [address] [phone] [place] [address] 11/15/2023 10:00 AM EDT Hospital Encounter Non[place] [phone] Arrived 11/21/2023 1:40 PM EDT Office Visit Cardiology at [address] [phone] Lea Hodges MD [facility] [place] [address] documented as of this encounter Visit Diagnoses Not on filedocumented in this encounter
--- OUTSIDE RECORDS SUMMARY | 2023-10-16 01:26 | XMS_ITS | Encounter Summary ---
Author Organization [facility] [place] [address] Care Team Providers Care Administration Professional Name Role Phone Angela Cotto MD Primary Care Provider [phone] Reason for Visit * Auth/Cert Specialty Diagnoses / Procedures Referred By Contehdy t Referred To Contact Diagnoses CAD (coronary artery disease) Screening for cardiovascular condition [Z13.6]Cardiomyopathy, unspecified type [I42.9] Procedures PRG CATH PLMT LEFT HEART CATH & ARTS W/INJ & ANGIO IMG S&I CARDIAC CATHETERIZATION CORONARY ANGIOGRAPHY; W LHC,POSSIBLE PCI Referral ID Status Reason Start Date Expiration Date Visits Re quested Visits Authorized [id number] 1 1 Encounter Details Date Type Department Care Team (Late st Contact Info) Description 02/21/2021 9:05 AM EST - 02/21/2021 10:05 AM EST [place] [id number] Lea Hodges MD [facility] [place] [address] CARDIAC CATHETERIZATION Social History Tobacco Use Types Packs/Day Years [...] Sign Reading Time Taken Comments Blood Pressure 124/82 02/21/2021 9:54 AM EST Pulse 92 02/21/2021 9:54 AM EST Temperature 36.9 ??C (98.4 ??F) 02/21/2021 9:54 AM ES T Respiratory Rate 18 02/21/2021 9:54 AM EST Oxygen Saturation 95% 02/21/2021 9:54 AM EST Inhaled Oxygen Concentration - - Weight 66.7 kg (147 lb) 02/21/2021 9:54 AM EST Height 162.6 cm (5' 4) 02/21/2021 9:54 AM EST Body Mass Index 25.85 02/21/2021 9:54 AM EST documented in this encounter Discharge Summaries * Kaleb Norwood MD - 02/26/2021 11:31 AM EST Patient Name: Stacy Esparza Patient Age: 65 y.o. Language: Vincentian Race: White Ethnicity: Not nor Admit date: [...] Coronary artery disease -left heart cath showed SWITCHBOARD CLERK of RCA distal to prior HUGO, with [...] Angela Cotto MD [address] / [facility] [address] Pending Studies and Lab Data: none No [...] with diffuse hypokinesis and apical akinesis. ?? [facility] today as outpatient procedure showed in-stent SWITCHBOARD CLERK of RCA and nonocclusive left coronary disease, [...] her baseline. She presented to her outpatient racing secretary and handicapper ([facility]), TTE showed reduced EF of 20-25% [...] on TTE, was mild per read from [facility] 1 week ago. Unclear etiology, though most likely her chronic severe HFrEF. No indication for drainage. - no tamponade physiology ?? #ASCVD #CAD s/p RCA stent in 2012 - cath with non-occlusive CAD - [facility] showed SWITCHBOARD CLERK of RCA - aspirin 81 daily - [...] Operations: Procedure(s): CARDIAC CATHETERIZATION CORONARY ANGIOGRAPHY; W LHC,POSSIBLE PCI Important Studies and Lab Data: Recent [...] Procedure Component Value Units Date/Time COVID-19 PCR [[id number]] Collected: 02/22/2139 Lab Status: Final result Specimen: [...] using the Simplexa COVID-19 Direct Assay by [employer] as authorized by the FDA issued Emergency [...] Department of Pathology and Laboratory Medicine at [facility], certified under the Clinical Laboratory Improvement Amendments [...] fact sheets at the following FDA website: https://www.fda.gov/medical-devices/pdxohhcodpz-bnspulq-0171-nbcst-90-jhjxercsz- wyj-knzqccedkywnwo-jeuwgsq-devices/njhvh-eiqcqojlhik-qctt SARS-CoV-2 Source LIBRARY SERVICES ASSISTANT Swab Imaging: Results for orders placed or [...] who have questions please contact the health veterinarian laboratory animal care that requested your imaging first. Chest One View (Exam End: 02/25/2021 8:20 AM) Impression Bibasilar opacities, suspect subsegmental atelectases. Stable cardiomegaly. Thank you for letting us participate in the care of this patient. If you are a health care provider and have any questions regarding this report, please contact the number below. For patients who have questions please contact the health veterinarian laboratory animal care that requested your imaging first. Discharge Conditions/Prognosis: [...] shortness of breath with activity and your racing secretary and handicapper had found that your heart failure had [...] appointments: During 8am-5pm Saturday through Saturday call [phone] to speak with a nurse in the cardiology clinic All other times call [phone] and ask to speak to the baking factory worker spinning bath person. What activities can you do, and what [...] the hospital? Kaleb Norwood MD - Attending Test Skein Winder Shant Mustafa MD - Human Resource Statistician Shalom Mooney MD, Harry Aguilar DO - Resident Physicians When do I see my doctors next? Future Appointments Date Time Provider Department Center 03/09/2021 1:40 PM LAB, THREE L Lab 3L [facility] 03/09/2021 2:40 PM Mylene Carrero PA [facility] CARD 4A [facility] You will need to follow up with your PCP (Angela Cotto MD at [phone]) within 1 week of discharge - scheduled for 03/06 at 2pm. You will need to follow up with your Test Skein Winder (Mylene Wagner with Dr. Alisa Reddy at [facility]) within 1 month of discharge - scheduled for 03/09/21 as above. For questions regarding issues relating to your hospitalization on the Cardiology Service, please contact your inpatient physician through the [facility] Movie Theater Manager [phone] and ask for pager #[phone]. Issues after hours and on weekends will be handled by the Cardiology staff on-call. General Instructions None Future Appointments and Orders Future Appointments and Orders Future Appointments Provider Department Dept Phone 03/09/2021 1:40 PM LAB, THREE L Lab 3L [facility] Arrive at: Switcher Area 3L [phone] 03/09/2021 2:40 PM Mylene Carrero PA Cardiology at [facility] Arrive at: Switcher Area 4A [phone] Future Orders Complete By Expires HOME OXYGEN [...] (if performed) 3 - Signed and dated qwgv-zp-[id number] evaluation documenting the need for Oxygen Scheduling [...] (if performed) 3 - Signed and dated hszi-nx-hjdr evaluation documenting the need for Oxygen Scheduling [...] please contact your inpatient physician through the [facility] Movie Theater Manager . Issues afterhours and on weekends will [...] shortness of breath with activity and your racing secretary and handicapper had found that your heart failure had [...] appointments: During 8am-5pm Saturday through Saturday call [phone] to speak with a nurse in the cardiology clinic All other times call [phone] and ask to speak to the baking factory worker spinning bath person. What activities can you do, and what [...] the hospital? Kaleb Norwood MD - Attending Test Skein Winder Shant Mustafa MD - Human Resource Statistician Shalom Mooney MD, Harry Aguilar, DO - Resident Physicians When do I see my doctors next? Future Appointments Date Time Provider Department Center 03/09/2021 1:40 PM LAB, THREE L Lab 3L AB [facility] 03/09/2021 2:40 PM Mylene Carrero PA [facility] CARD 4A [facility] You will need to follow up with your PCP (Angela Cotto MD at [phone]) within 1 week of discharge - scheduled for 03/06 at 2pm. You will need to follow up with your Test Skein Winder (Mylene Wagner with Dr. Alisa Reddy at [facility]) within 1 month of discharge - scheduled for 03/09/21 as above. For questions regarding issues relating to your hospitalization on the Cardiology Service, please contact your inpatient physician through the [facility] Movie Theater Manager [phone] and ask for pager #[phone]. Issues after hours and on weekends will [...] who developed flash pulmonary edema in the chemical laboratory chief requiring rescue bipap, since stabilized with nitro [...] petechiae, or ecchymoses Laboratory: CBC: Recent Labs 02/26/2142002/25/2113 02/24/21 0339 WBC 8.4 8.0 8.8 HGB 13.7 14.1 13.6 PLATELET 254 261 250 Chemistry: Recent Labs 02/26/2142002/25/21 0613 02/25/21 0010 02/24/21 0339 NA 140 139 138 140 K 4.3 4.1 4.2 3.9 CL 99 98 99 99 CO2 30 29 30 29 BUN 26* 21* 23* 19* CREATININE 1.05 0.89 0.94 1.00 GLUCOSE 108 118 -- 118 Recent Labs 02/26/2142002/25/21 0613 02/25/21 0010 02/21/21 2205 02/21/21 1605 [...] who have questions please contact the health veterinarian laboratory animal care that requested your imaging first. Chest One View (Exam End: 02/25/2021 8:20 AM) Impression Bibasilar opacities, suspect subsegmental atelectases. Stable cardiomegaly. Thank you for letting us participate in the care of this patient. If you are a health care provider and have any questions regarding this report, please contact the number below. For patients who have questions please contact the health veterinarian laboratory animal care that requested your imaging first. Cardiac Cath [...] who developed flash pulmonary edema in the chemical laboratory chief requiring rescue bipap. ?? LHC showed SWITCHBOARD CLERK of RCA with good collateral flow, nonocclusive [...] on TTE, was mild per read from [facility] 1 week ago. Unclear etiology, though most likely her chronic severe HFrEF. No indication for drainage. - no tamponade physiology #ASCVD #CAD s/p RCA stent in 2012 - cath with non-occlusive CAD - [facility] showed SWITCHBOARD CLERK of RCA - aspirin 81 daily - [...] full code - Dispo: Home today Shalom Mooeny MD PGY-1 Cardiology 02/26/21 CARDIOLOGY ATTENDING NOTE [...] minimum of two midnights or is onthe [facility] inpatient only procedure list (status C) due to:??decompensated congestive heart failure requiring IV medication and fluid monitoring. ?? Mrs. Esparza is a 65 year old woman with history of CAD s/p PCI to RCA in 2012 who presented with worsening shortness of breath and drop in EF; in chemical laboratory chief, developed flash pulmonary edema requiring BiPAP, now weaned off. TTE with EF 15- 20%. She's on GDMT with BB, ARB, MRA, oral diuretic. Qualifiesfor home oxygen. Discharge today, has f/u with CHF team. Will need cardiac MRI as outpatient for evaluation of non-ischemic cardiomyopathy. ?? Rest per Dr. Mooney.?? Kaleb Norwood MD, MPH, RPVI, FACC, [facility] Pager [phone] Cardiovascular Airborne Operations ManagerMaintenance Mechanic [place] [address] * Denisse Michaels RN - 02/25/2021 5:51 [...] who developed flash pulmonary edema in the chemical laboratory chief requiring rescue bipap, since stabilized with nitro [...] or ecchymoses Laboratory: CBC: Recent Labs 02/25/21 0613 02/24/219 02/23/21 0445 WBC 8.0 8.8 8.7 HGB 14.1 [...] who have questions please contact the health veterinarian laboratory animal care that requested your imaging first. Chest One View (Exam End: 02/25/2021 8:20 AM) Impression Bibasilar opacities, suspect subsegmental atelectases. Stable cardiomegaly. Thank you for letting us participate in the care of this patient. If you are a health care provider and have any questions regarding this report, please contact the number below. For patients who have questions please contact the health veterinarian laboratory animal care that requested your imaging first. Cardiac Cath [...] who developed flash pulmonary edema in the chemical laboratory chief requiring rescue bipap. ?? LHC showed SWITCHBOARD CLERK of RCA with good collateral flow, nonocclusive [...] on TTE, was mild per read from [facility] 1 week ago. Unclear etiology, though most likely her chronic severe HFrEF. No indication for drainage. - no tamponade physiology #ASCVD #CAD s/p RCA stent in 2012 - cath with non-occlusive CAD - [facility] showed SWITCHBOARD CLERK of RCA - aspirin 81 daily - [...] minimum of two midnights or [facility] (status C) due to: decompensated congestive heart failure requiring IV medication and fluid monitoring. ?? Mrs. Esparza is a 65 year old woman with history of CAD s/p PCI to RCA in 2012 who presented with worsening shortness of breath and drop in EF; in chemical laboratory chief, developed flash pulmonary edema requiring BiPAP, now weaned off. TTE with EF 15- 20%. Continue to optimize GMDT with BB, ARB, MRA. Switch to oral diuretic today. Qualifies for home oxygen. Likely discharge tomorrow. Will need cardiac MRI as outpatient for evaluation of non-ischemic cardiomyopathy. ?? Rest per Dr. Aguilar. Kaleb Norwood MD, MPH, RPVI, FACC, FS Pager [phone] Cardiovascular Airborne Operations ManagerMaintenance Mechanic [place] [address] * Harry Aguilar DO - 02/25/2021 8:41 [...] portable oxygen) ?? Rate: 1 L/min Route: [place] Vendor Ordered: [facility] ?? I anticipate [...] who developed flash pulmonary edema in the chemical laboratory chief requiring rescue bipap, since stabilized with nitro drip and IV diuresis. Reason for intervention: consult cx: Would like more information about a low sodium diet, food alternatives to high sodium foods. Nutrition Plan: Continue [facility] diet order Encourage good po intake Monitor weight Monitor BM - may need to adjust regimen Pt seen for low sodium education, Two Gram Sodium Diet booklet at bedside. Provided her with [facility] booklet as well. Pt reported she has [...] foods she has. Expressed good understanding of Dz2sryrpg. Active Orders Diet Daily Healthy Menu Choices/Cardiac diet ([facility]-Diet) Frequency: Effective Now Number of Occurrences: Until [...] in the interim. Arlette Enriquez RD Pager: [phone] * Sendy Myles RN - 02/24/2021 11:33 [...] placed. [place] and patient requests referral to: [facility] (Resp Supplies) Central Intake: [place]: [place]: Expected date of discharge: 02/25/21. Referral routed to the Swatch Checker for matching with agency/vendor and to provide [...] (Requiring portable oxygen) Rate: 1-2 L/min Route: [place] Vendor Ordered: [facility] I anticipate that [...] who developed flash pulmonary edema in the chemical laboratory chief requiring rescue bipap, since stabilized with nitro [...] or performed during the hospital encounter of 11/30/21 XR Chest One View (Exam End: 02/21/2021 5:00 PM) Impression Severely enlarged cardiac silhouette; suspect combination of dilated cardiomyopathy and pericardial effusion. Thank you for letting us participate in the care of this patient. If you are a health care provider and have any questions regarding this report, please contact the number below. For patients who have questions please contact the health veterinarian laboratory animal care that requested your imaging first. : ?? [...] who developed flash pulmonary edema in the chemical laboratory chief requiring rescue bipap. ?? LHC showed SWITCHBOARD CLERK of RCA with good collateral flow, nonocclusive left-sided coronary disease. No intervention performed. ?? The etiology of her newly reduced EF is unclear. RCA SWITCHBOARD CLERK aligns with her inferior akinesis, though her [...] losartan 25mg daily -cardiac MRI -work with mental health case manager to get insurance coverage so she can get entresto and sglt2i -plan to follow up with Dr. Reddy ЕКАТЕРИНА in 2 weeks - appt scheduled Scheduled to follow up in PCP office on 03/06 at 2pm #Mild-moderate pericardial effusion Seen on TTE, was mild per read from [facility] 1 week ago. Unclear etiology, though most likely her chronic severe HFrEF. No indication for drainage now, as she is stable.? #CAD s/p RCA stent in 2012 -s/p C, no indication for intervention -continue [...] of two midnights or is on the [facility] inpatient only procedure list (status C) due to: decompensated congestive heart failure requiring IV medication and fluid monitoring. Mrs. Esparza is a 65 year old woman with history of CAD s/p PCI to RCA in 2012 who presented with worsening shortness of breath and drop in EF; in chemical laboratory chief, developed flash pulmonary edema requiring BiPAP, now weaned off. TTE with EF 15- 20%. Continue to optimize GMDT - increase BB, start ARB (doesn't have insurance for Entresto currently), continue MRA. Continue diuresis. Cardiac MRI for evaluation of non-ischemic cardiomyopathy. Rest per Dr. Mooney. Kaleb Norwood MD, MPH, RPVI, FACC, FS Pager [phone] Cardiovascular Airborne Operations ManagerMaintenance Mechanic [place] [address] * Cornell Cruz RN - 02/24/2021 1:15 [...] Antibody Neg Neg HIV Screen, 4th Generation ([facility]P/APD/[facility]) Result Value Ref Range HIV-1/2 Ab and [...] to moderate pericardial effusion. ?? Cath with SWITCHBOARD CLERK of RCA LVEDP 40 Assessment: 65 y.o. year old female w/ h/o CAD s/p PCI to RCA in 2012 c/b iCMP 25-30% who p/w worsening SOB andpersistent POZO last week. After drop in EF noted, taken to chemical laboratory chief where ISR of the RCA lesion wasnoted. After procedure she developed flash pulmonary edema and respiratory failure requiring BiPAP.Taken to [facility] for IV diuresis + IV TNG. Now improved with plan for dx w/u for DCM and optimization of meds. Plan: 1. Endo c/s re: T3/T4 2. cMR today @ 11:30 3. Metoprolol 12.5mg q6h 4. 03/26 tab Entresto BID 5. Sayre 12.5mg QD 6. Will singh check dapa/empa [...] pulmonary edema and respiratory failure in the chemical laboratory chief requiring rescue BiPAP, since stabilized with nitro [...] WFL Skin: all visible skin intact, see continuous improvement black belt for details Musculoskeletal: ROM: WFL Strength: WFL, [...] in this evaluation. Time IN / OUT: 3847-8015 Total Minutes, Physical Therapy: 22 Billing Code: Evaluation Natalie Murillo, PT Pager: [phone] Physical Therapy Inpatient Rehabilitation Department * Cornell [...] who developed flash pulmonary edema in the chemical laboratory chief requiring rescue bipap, since stabilized with nitro [...] Chemistry: Recent Labs 02/23/21 0445 02/22/21 0515 02/21/21 2205 02/21/21 1605 NA 142 140 142 140 K 4.2 4.2 3.9 3.8 CL 104 104 101 102 CO2 28 26 29 22 BUN 19* 22* 21* 21* CREATININE 0.81 0.90 1.07 0.99 GLUCOSE 109 104 -- 128 Recent Labs 02/23/21 0445 02/22/21 0515 02/21/21 2205 02/21/21 1605 CALCIUM 9.1 8.7 9.4 9.6 MAGNESIUM [...] who have questions please contact the health veterinarian laboratory animal care that requested your imaging first. : ?? [...] who developed flash pulmonary edema in the chemical laboratory chief requiring rescue bipap. ?? LHC showed SWITCHBOARD CLERK of RCA with good collateral flow, nonocclusive left-sided coronary disease. No intervention performed. ?? The etiology of her newly reduced EF is unclear. RCA SWITCHBOARD CLERK aligns with her inferior akinesis, though her [...] entresto as outpatient -cardiac MRI -work with mental health case manager to get insurance coverage so she can get entresto and sglt2i -plan to follow up with Dr. Reddy ЕКАТЕРИНА in 2 weeks #Mild-moderate pericardial effusion Seen on TTE, was mild per read from [facility] 1 week ago. Unclear etiology, though most likely her chronic severe HFrEF. No indication for drainage now, as she is stable.? #CAD s/p RCA stent in 2013 -s/p LHC, no indication for intervention -continue [...] Attending Attestation I was the assigned attending racing secretary and handicapper for this clinical encounter. For the purposes of billing,I was directly involved in the clinical decision making and the plan of care is reasonable. Please see my separate attending note from today for additional details. Alisa Reddy MD MPH Advanced Heart Disease & Cardiac Transplant Attending 02/23/2021, 5:52 PM * Fredy Bolanos, OT - 02/22/2021 3:50 PM EST Occupational Therapy Evaluation Patient profile: Stacy Esparza is a 65 y.o. female admitted on 02/21/2021 With h/o CAD s/p PCI to RCA in 2012 c/b iCMP 25-30% who p/w worsening SOB and persistent PZOO last week. After drop in EF noted, taken to chemical laboratory chief on 02/21/21 where ISR of the RCA [...] to room. She was using oxygenpurchased from [employer] due to significant POZO. Precautions/Special Considerations: risk [...] Discharge planning. Total Minutes, Occupational Therapy: 50 (Eval, SCHM x 2 (3:50-4:30)) 2017 OT Evaluation [...] and measurable assessment of functional outcome. Pager: [phone] FREDY BOLANOS OT 02/22/2021 Occupational Therapy Rehabilitation [...] Value Ref Range T&S only valid at [facility] Hosp POCT Glucose Result Value Ref Range POC Glucose 124 65 - 199 mg/dL Lactate, whole blood, send to lab ([facility]) Result Value Ref Range Lactate WB 1.5 0.5 - 2.2 mmol/L TSH [place] Result Value Ref Range TSH 3.99 0.27 [...] PCR Not Detected Not Detected SARS-CoV-2 Source LIBRARY SERVICES ASSISTANT Swab Basic Metabolic Panel (non-fasting) Result Value [...] Relevant Cardiac Tests: TTE pending Cath with SWITCHBOARD CLERK of RCA LVEDP 40 Assessment: 65 y.o. year old female w/ h/o CAD s/p PCI to RCA in 2012 c/b iCMP 25-30% who p/w worsening SOB andpersistent POZO last week. After drop in EF noted, taken to chemical laboratory chief where ISR of the RCA lesion wasnoted. [...] setting of recent acute onset of severe OPZO 10 days ago with newly reduced EF 20-25% (from 53% on last check), who developed flash pulmonary edema in the chemical laboratory chief requiring rescue bipap, since stabilized with nitro drip and IV diuresis. 24 Hour Events/Subjective: -Stabilized with rescue BiPAP yesterday after flash pulmonary edema in the Budget Examiner in the setting of hypertension and receiving [...] 294 278 Chemistry: Recent Labs 02/22/21 0515 02/21/21220402/21/21 1605 NA 140 142 140 K 4.2 [...] who have questions please contact the health veterinarian laboratory animal care that requested your imaging first. Assessment & Plan: Ms. Esparza is a 65F PMHx significant for hypothyroidism, coronary disease s/p RCA stent in 2012, who presents for planned outpatient cardiac catheterization in the setting of recent acute onset of severe POZO 10 days ago with newly reduced EF 20-25% (from 53% on last check), who developed flash pulmonary edema in the chemical laboratory chief requiring rescue bipap. ?? LHC showed SWITCHBOARD CLERK of RCA with good collateral flow, nonocclusive left-sided coronary disease. No intervention performed. ?? The etiology of her newly reduced EF is unclear. RCA SWITCHBOARD CLERK aligns with her inferior akinesis, though her diffuse LV hypokinesis does not appear to be ischemic in nature, so we will proceed with workup and optimization of her GDMT. Ddx includes tachymyopathy (recent palpitations), ETOH (denies recent use), infectious (denies recent infectious symptoms), other. 02/22: Clinically much improved after starting on nitro drip and diuresis of net negative 2 L ( mg IV Lasix). Now with severely dilated cardiomyopathy on chest x-ray and preliminary TTE results with ? pericardial effusion, we will await formal echo read prior to further diuresis given her soft pressures. She remains wet on exam this morning though she is satting well on room air. ?? PLAN: Admit to Cardiology, S2 Team Pager # [phone] ?? #Flash pulmonary edema #HFrEF, acute exacerbation #Dilated cardiomyopathy of unclear etiology -Follow-up TTE results -vitamin D, iron studies, TSH -tele -hold home metoprolol for now in setting of low blood pressures -hold home losartan for now in setting of low pressures -Consider work-up for additional etiologies, including infectious -cardiac MRI ? #CAD s/p RCA stent in 2013 -s/p [facility], no indication for intervention -continue home ASA [...] Attending Attestation I was the assigned attending racing secretary and handicapper for this clinical encounter. For the purposes [...] non-diaphoretic, no rashes on limited exam Lines- Nancy Galvez ASSESSMENT, MANAGEMENT, and DECISION MAKINyoF in the chemical laboratory chief for diagnostic outpatient cath in work-up of [...] response. Formal TTE okay for tomorrow. RCA SWITCHBOARD CLERK noted; favor medical management for now. Will [...] Attending Addendum I was the assigned attending racing secretary and handicapper for this clinical encounter. For the purposes [...] After drop in EF noted, taken to chemical laboratory chief where ISR ofthe RCA lesion was noted. [...] patient. For any additional questions,my pager is #[phone]. Alisa Reddy MD MPH Advanced Heart Disease & Cardiac Transplant Attending 02/21/2021, 4:07 PM * Shalom Light MD - 02/21/2021 3:33 PM EST Images from the original note were not included. Cardiovascular Medicine Admission History and Physical Patient Name: Stacy Esparza Service: Cardiology S2 Team Responsible Attending: Alisa Reddy MD MPH PCP: Angela Cotto MD PCP phone #: [phone] ID/Chief Complaint: Flash pulmonary edema, acute HFrEF exacerbation History of Present Illness: Stacy Esparza is 65F with history of CAD (stents to the RCA in 2013) and ischemic cardiomyopathy s/p improvement in EF to 52% who presents with worsening shortness of breath since last week without chest pain. Has had persistent POZO and palpitations. Recent TTE showing LVEF 25 to 30% with a severely dilated LV with diffuse hypokinesis and apical akinesis. [facility] today as outpatient procedure showed in-stent SWITCHBOARD CLERK of RCA and nonocclusive left coronary disease, without indication for intervention. During the procedure she received approximately 600cc fluid and developed acute hypoxic respiratory failure requiring rescue bipap. She was given 40mg IV lasix plus 80mg IV lasix, with continued respiratory distress on bipap, and was admitted to the CV for further diuresis and management. She reports 10 days of progressive POZO with minimal exertion, which is an acute worsening from her baseline. 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 Invalid input(s): [id number] Heme: No results for input(s): LDH, HAPTOGLOBIN, URICACID in the last 168 hours. Microbiology: None Diagnostic Studies: EKG- CXR- pending Cardiac Catheterization- report pending - SWITCHBOARD CLERK of RCA distal to prior stent, nonocclusive [...] who developed flash pulmonary edema in the chemical laboratory chief requiring rescue bipap. LHC showed SWITCHBOARD CLERK of RCA with good collateral flow, nonocclusive left-sided coronary disease. No intervention performed. At time of exam patient is stable in CVCC with improved respiratory status after diuresis, though remains on bipap, which we will continue for 30 minutes before transitioning to NC. The etiology of her newly reduced EF is unclear. RCA SWITCHBOARD CLERK aligns with her inferior akinesis, though her diffuse LV hypokinesis does not appear to be ischemic in nature, so we will proceed with workup and optimization of her GDMT. Ddx includes tachymyopathy (recent palpitations), ETOH (denies recent use), infectious (denies recent infectious symptoms), other. PLAN: Admit to Cardiology, S2 Team Pager # [phone] #Flash pulmonary edema #HFrEF -TTE -CXR -vitamin [...] MD Internal Medicine PGY1 Cardiology S2, Pager [phone] 02/21/2021 Associated attestation - Alisa De Leon MD - 02/22/2021 1:20 PM EST Cardiology Attending Addendum I was the assigned attending racing secretary and handicapper for this clinical encounter. For the purposes [...] After drop in EF noted, taken to chemical laboratory chief where ISR ofthe RCA lesion was noted. [...] patient. For any additional questions,my pager is #[phone]. Alisa Reddy MD MPH Advanced Heart Disease [...] catheterization for worsening cardiomyopathy. Will proceed with [facility]. - proceed as planned - consent signed [...] for discharge is: Home w/o Services Company: [employer] Transportation: Private car Functional status prior to [...] Insurance: N/A Prescription Coverage: Yes Preferred Pharmacy: [facility] - [place], [place] - [facility] [id number] [facility] - [place], [place] - [address] [facility] [address] [facility] [facility] [address] [facility], [place] - [address] [facility] [address] [facility] [address] [facility] [address] Marcia Mayes RN, BSN Case Management * Plan of [...] Insurance: N/A Prescription Coverage: No Preferred Pharmacy: [facility] [place], [place] - [facility] [id number] [place], [place] - [address] [facility] [address] [facility] [address] [facility] [id number] Last Physical Therapy Recommendation: home with daily check in,other (see comments) (daily check invia phone call as needed) with None Last Occupational Therapy Recommendation: home with None Plan for discharge is: Home w/o Services Company: [employer] UPDATE: Patient does not qualify for home oxygen, see O2 Certification note dated 02/24/21. Agency Referrals & Follow-up Care: [facility] (Resp Supplies) Central Intake: [place]: [place]: Transportation: Daughter Barriers to discharge: Plan going forward: Nursing to obtain O2 saturation levels Care Management will continue to follow and assist with discharge planning and coordination of careas indicated. * Plan of Care - Alisa Cabrera RN - 02/22/2021 4:42 PM EST OUTCOME EVALUATION NOTE: OUTCOME SUMMARY: Pt A&O, [facility], no complaints of pain, 1-2LNC, daughter at [...] nurse, medical record, and Patient,Child (Araseli (daughter) atbedside) RNCM Introduced self/reviewed role; services accepted. Reason for Hospitalization: Cath Last COVID test: Lab Results Component Value Date [id number] Not Detected 02/22/2021 Past medical History: History reviewed. No pertinent past medical history. Hospitalizations Within the Past 30 Days: no previous admission in last 30 days Current Decision-Making Capacity: Self Advance Care Planning: Attempt Cardiopulmonary Resuscitation - Inpatient <no information> -Advanced Directive: No, need to discuss (Patient would like to complete AD while in hospital. RNCMto make LOGISTICS SUPPLY OFFICER aware.) If AD's have not been completed Adult Child would be surrogate decision maker per [place] surrogate decision making law. (Only good for 180 days) Any patient receiving care at [facility] must abide by [place] law. The hierarchy for surrogate decision making [...] (i) The agent with financial power of sr. operations manager or a conservator appointed in accordance with [...] DME: none Home Address confirmed as: [address] [facility] [address] Social & Family Supports: All names listed [...] resources to daughter andpatient: [facility], [place], and [place]. Daughter reports they have spoken with [...] Insurance: N/A Prescription Coverage: None Preferred Pharmacy: [facility] [id number] Hours: Not open 24 hours [facility] - [place], [place] - [address] [place] [id number] Hours: Not open 24 hours Status: Patient is a : unable to assess Primary Care Provider: Angela Cotto MD [phone] Patient/Caregiver Goals of Treatment: be able to [...] Operative Note Patient Name: Stacy Esparza : [id number] MR#: [id number] Case Date: 02/21/2021 Surgeon: Surgeon(s) and Role: * Lea Hodges MD - Primary * Raj Trivedi MD - Fellow Preoperative diagnosis: Screening for cardiovascular condition [Z13.6]Cardiomyopathy, unspecified type [I42.9] Postoperative diagnosis: Cardiomyopathy Procedure(s) (LRB): CARDIAC CATHETERIZATION (Left) CORONARY ANGIOGRAPHY; W C,POSSIBLE PCI (N/A) Anesthesia: Moderate sedation Access: attempted [...] of 45 mmHg. Distal RCA is now SWITCHBOARD CLERK. Left system unchanged from prior cath. She needs admission and IV diuresis with Bipap. Can re-address need to intervene on RCA SWITCHBOARD CLERK once she is optimized from HF stand-point. Lea Hodges MD Interventional Cardiology 02/21/2021 documented in this encounter Plan of Treatment Upcoming Encounters Date Type Department Care Team (Late st Contact Info) Description 10/17/2023 10:30 AM EDT Appointment [place] [phone] [place] [address] 10/17/2023 11:40 AM EDT Office Visit Cardiology at [address] [phone] [place] [address] 11/15/2023 10:00 AM EDT Hospital Encounter Non-[place] [phone] Arrived 11/21/2023 1:40 PM EDT Office Visit Cardiology at [address] [phone] Lea Hodges MD [facility] [place] [address] documented as of this encounter Procedures Procedure [...] 02/22/2021 5:15 AM EST RAPID COVID-19 PCR ([facility]) Routine 02/22/2021 12:40 AM EST POCT GLUCOSE [...] * POCT Glucose (02/26/2021 7:42 AM EST) Pathologist [facility] [place] POC Glucose 113 65 - 199 mg/dL [facility] Comment: Supplemental ranges: <140 mg/dL before meals <180 mg/dL all other times of the day Blood 02/26/2021 7:42 AM EST 02/26/2021 7:42 AM EST Kaleb Norwood MD POINT OF CARE TEST O RDERABLES [facility] [place] [address] * Differential, Automated (02/26/2021 4:21 AM EST) Pathologist [facility] [place] Neutrophils % 51.4 % [facility] Neutr Abs (ANC) 4.29 1.70 - 6.10 x10(3)/[facility] LABORATORY Lymphocytes % 33.9 % [facility] Lymphocytes Abs 2.8 0.9 - 3.2 x10(3)/[facility] Monocytes % 10.0 % [facility] Monocyte Abs 0.8 0.3 - 0.9 x10(3)/[facility]ORY Eosinophils % 3.9 % [facility] Eosinophils Abs 0.3 0.0 - 0.4 x10(3)/[facility] Basophils % 0.7 % [facility] Basophils Abs 0.1 0.0 - 0.1 x10(3)/[facility]ATORY Immature Gran % 0.10 % [facility] Comment: Immature granulocytes(IG's)percentage and absolute count will include metamyelocytes, myelocytes, and promyelocytes. Blood smears from CBCs yielding IG's will be scanned manually for concordance. If this scan disagrees with the automated IG or if promyelocytes are noted, a manual differential will be performed. [place] Gran Abs 0.01 0.00 - 0.04 x10(3)/[facility] LAB[facility]ATORY Blood 02/26/2021 4:21 AM EST 02/26/2021 4:38 AM EST Narrative Resulting Agency Comment Spec In Lab Harry Aguilar DO HEMATOLOGY ORDERABLE S Performing Organization Address City/State/[facility] Co de Phone Number [facility] [place] [address] * (ABNORMAL) Hemogram (02/26/2021 4:21 AM EST) WBC 8.4 4.0 - 9.5 x10(3)/[facility] LAB[facility]ATORY RBC 4.49 4.00 - 5.21 x10(6)/[facility] Hemoglobin 13.7 11.7 - 15.5 g/dL [facility] Hematocrit 41.2 35.7 - 45.8 % [facility] MCV 91.8 82.6 - 94.4 [facility]ATORY MCH 30.5 27.1 - 32.0 pg [facility] MCHC 33.3 31.7 - 35.0 g/dL [facility] Platelets 254 145 - 357 x10(3)/[facility] LABORATORY RDWSD 47.7(H) 37.0 - 46.0 [facility] LAB[facility]ORY RDWCV 14.3(H) 11.5 - 14.1 % [facility] MPV 9.2 7.6 - 12.9 [facility]ORY nRBC % Auto 0.0 % [facility] nRBC Abs Auto 0.000 0.000 - 0.000 x10(3)/[facility] Blood 02/26/2021 4:21 AM EST 02/26/2021 4:38 AM EST Narrative Resulting Agency Comment Spec In Lab Obradhaa Kimanii DO HEMATOLOGY ORDERABLE S [facility] [place] [address] * Magnesium (02/26/2021 4:21 AM EST) Magnesium 0.98 0.69 - 1.07 mmol/L [facility] Blood 02/26/2021 4:21 AM EST 02/26/2021 4:38 AM EST Narrative Resulting Agency Comment Spec In Lab Alisa Borrero MD CHEMISTRY OR DERABLES Performing Organization Address City/[facility]/ZIP Co de Phone Number [facility] [place] [address] * (ABNORMAL) Basic Metabolic Panel (non-fasting) (02/26/2021 4:21 AM EST) Pathologist [facility] [place] Glucose Lvl 108 65 - 199 mg/dL [facility] Comment:Diabetes: >=200 mg/d L plus symptoms BUN 26(H) 8 - 18 mg/dL [facility] Creatinine 1.05 0.70 - 1.20 mg/dL [facility] Sodium 140 135 - 145 mmol/L [facility] Potassium 4.3 3.5 - 5.0 mmol/L [facility] Comment: Please note: ??Patients with WBC >100,000 may have falsely elevated Potassium levels. ??For accurate Potassium quantification in these patients send serum separator tube (gold top) for subsequent determinations. ??Contact the Clinical Chemistry Laboratory if there are any questions. Chloride 99 98 - 107 mmol/L [facility] CO2 30 22 - 31 mmol/L [facility] Anion Gap 11 5 - 15 mmol/L [facility] Calcium 9.0 8.5 - 10.5 mg/dL [facility] Estimated GFR 55(L) >=60 mL/min/1. 73 m?? [facility] Comment: This patient? s estimated [...] MD CHEMISTRY OR DERABLES Performing Organization Address [facility] Co de Phone Number [facility] [place] [address] * POCT Glucose (02/25/2021 5:06 PM EST) POC Glucose 107 65 - 199 mg/dL [facility] Comment: Supplemental ranges: <140 mg/dL before meals <180 mg/dL all other times of the day Blood 02/25/2021 5:06 PM EST 02/25/2021 5:06 PM EST Kaleb Norwood MD POINT OF CARE TEST O JAROD Performing Organization Address [facility] Co de Phone Number [facility] [place] [address] * POCT Glucose (02/25/2021 12:02 PM EST) POC Glucose 107 65 - 199 mg/dL [facility] Comment: Supplemental ranges: <140 mg/dL before meals <180 mg/dL all other times of the day Blood 02/25/2021 12:0 2 PM EST 02/25/2021 12:02 PM EST Kaleb Norwood MD POINT OF CARE TEST O JAROD Performing Organization Address [facility]/ZIP Co de Phone Number [facility] [place] [address] * (ABNORMAL) POCT Glucose (02/25/2021 8:42 AM EST) POC Glucose 239(H) 65 - 199 mg/dL [facility] Comment: Supplemental ranges: <140 mg/dL before meals <180 mg/dL all other times of the day Blood 02/25/2021 8:42 AM EST 02/25/2021 8:42 AM EST Kaleb Norwood MD POINT OF CARE TEST O RDERABLES [facility] [place] [address] * XR Chest One View (02/25/2021 8:20 [...] who have questions please contact the health veterinarian laboratory animal care that requested your imaging first. ? [...] patients who have questions please contactthe health veterinarian laboratory animal care that requested your imaging first. Kaleb Norwood MD IMG DX ORDERABLES * Differential, Automated (02/25/2021 6:13 AM EST) Neutrophils % 56.2 % [facility] Neutr Abs (ANC) 4.52 1.70 - 6.10 x10(3)/[facility] Lymphocytes % 28.7 % [facility] Lymphocytes Abs 2.3 0.9 - 3.2 x10(3)/[facility] Monocytes % 10.4 % [facility] Monocyte Abs 0.8 0.3 - 0.9 x10(3)/[facility] Eosinophils % 3.5 % [facility] Eosinophils Abs 0.3 0.0 - 0.4 x10(3)/[facility] Basophils % 1.0 % [facility] Basophils Abs 0.1 0.0 - 0.1 x10(3)/[facility] Immature Gran % 0.20 % [facility] Comment: Immature granulocytes(IG's)percentage and absolute count will include metamyelocytes, myelocytes, and promyelocytes. Blood smears from CBCs yielding IG's will be scanned manually for concordance. If this scan disagrees with the automated IG or if promyelocytes are noted, a manual differential will be performed. Nel[place] Gran Abs 0.02 0.00 - 0.04 x10(3)/[facility] Blood 02/25/2021 6:13 AM EST 02/25/2021 6:27 AM EST Narrative Resulting Agency Comment Spec In Lab Harry Aguilar DO HEMATOLOGY ORDERABLE S Performing Organization Address City/State/[facility] Co de Phone Number [facility] [place] [address] * (ABNORMAL) Hemogram (02/25/2021 6:13 AM EST) WBC 8.0 4.0 - 9.5 x10(3)/[facility] RBC 4.70 4.00 - 5.21 x10(6)/[facility] Hemoglobin 14.1 11.7 - 15.5 g/dL [facility] Hematocrit 43.3 35.7 - 45.8 % [facility] MCV 92.1 82.6 - 94.4 fL [facility] MCH 30.0 27.1 - 32.0 pg [facility] MCHC 32.6 31.7 - 35.0 g/dL [facility] Platelets 261 145 - 357 x10(3)/[facility] RDWSD 47.8(H) 37.0 - 46.0 fL [facility] RDWCV 14.2(H) 11.5 - 14.1 % [facility] MPV 9.2 7.6 - 12.9 fL [facility] nRBC % Auto 0.0 % [facility] nRBC Abs Auto 0.000 0.000 - 0.000 x10(3)/mcL [facility] Blood 02/25/2021 6:13 AM EST 02/25/2021 6:27 AM EST Narrative Resulting Agency Comment Spec In Lab Yaakovflash Lauren GARCIA HEMATOLOGY ORDERABLE S Performing Organization Address City/[facility]/ZIP Co de Phone Number [facility] [place] [address] * (ABNORMAL) Magnesium (02/25/2021 6:13 AM EST) Magnesium 1.11(H) 0.69 - 1.07 mmol/L [facility] Blood 02/25/2021 6:13 AM EST 02/25/2021 6:27 AM EST Narrative Resulting Agency Comment Spec In Lab Alisa Borrero MD CHEMISTRY OR DERABLES Performing Organization Address City/[facility]/ZIP Co de Phone Number [facility] [place] [address] * (ABNORMAL) Basic Metabolic Panel (non-fasting) (02/25/2021 6:13 AM EST) Glucose Lvl 118 65 - 199 mg/dL [facility] Comment:Diabetes: >=200 mg/d L plus symptoms BUN 21(H) 8 - 18 mg/dL [facility] Creatinine 0.89 0.70 - 1.20 mg/dL [facility] [...] questions. Chloride 98 98 - 107 mmol/L [facility] CO2 29 22 - 31 mmol/L [facility] Anion Gap 12 5 - 15 mmol/L [facility] Calcium 9.1 8.5 - 10.5 mg/dL [facility] Estimated GFR 68 >=60 mL/min/1. 73 m?? [facility] Comment: This patient? s estimated [...] MD CHEMISTRY OR DERABLES Performing Organization Address City/[facility]/ZIP Co de Phone Number [facility] [place] [address] * Magnesium (02/25/2021 12:10 AM EST) Magnesium 0.84 0.69 - 1.07 mmol/L [facility] Blood 02/25/2021 12:1 0 AM EST 02/25/2021 12:14 AM EST Narrative Resulting Agency Comment Spec In Lab Kaleb Norwood MD CHEMISTRY ORDERABLES Performing Organization Address [facility]/ZIP Co de Phone Number [facility] [place] [address] * (ABNORMAL) BMP w/fasting Glucose (02/25/2021 12:10 AM EST) Glucose Fasting 103(H) 65 - 99 mg/dL [facility] Comment: ?Fasting* Glucose Interpretive Criteria [...] of Diabetes Mellitus, Position Statement from the [place] [employer]. ??Diabetes Care, Volume 33, Supplement 1, Mar 2009 BUN 23(H) 8 - 18 mg/dL [facility] Creatinine 0.94 0.70 - 1.20 mg/dL [facility] Sodium 138 135 - 145 mmol/L [facility] Potassium 4.2 3.5 - 5.0 mmol/L [facility] Comment: Please note: ??Patients with WBC >100,000 may have falsely elevated Potassium levels. ??For accurate Potassium quantification in these patients send serum separator tube (gold top) for subsequent determinations. ??Contact the Clinical Chemistry Laboratory if there are any questions. Chloride 99 98 - 107 mmol/L [facility] CO2 30 22 - 31 mmol/L [facility] Anion Gap 9 5 - 15 mmol/L [facility] Calcium 8.8 8.5 - 10.5 mg/dL [facility] Estimated GFR 63 >=60 mL/min/1. 73 m?? [facility] Comment: This patient? s estimated [...] Norwood MD CHEMISTRY ORDERABLES Performing Organization Address [facility] Co de Phone Number [facility] [place] [address] * POCT Glucose (02/24/2021 8:10 PM EST) POC Glucose 136 65 - 199 mg/dL [facility] Comment: Supplemental ranges: <140 mg/dL before meals <180 mg/dL all other times of the day Blood 02/24/2021 8:10 PM EST 02/24/2021 8:10 PM EST Kaleb Norwood MD POINT OF CARE TEST O RDERABLES Performing Organization Address [facility] Co de Phone Number [facility] [place] [address] * POCT Glucose (02/24/2021 4:45 PM EST) POC Glucose 103 65 - 199 mg/dL [facility] Comment: Supplemental ranges: <140 mg/dL before meals <180 mg/dL all other times of the day Blood 02/24/2021 4:45 PM EST 02/24/2021 4:45 PM EST Kaleb Norwood MD POINT OF CARE TEST O RDERABLES Performing Organization Address [facility] Co de Phone Number [facility] [place] [address] * POCT Glucose (02/24/2021 11:46 AM EST) POC Glucose 97 65 - 199 mg/dL [facility] Comment: Supplemental ranges: <140 mg/dL before meals <180 mg/dL all other times of the day Blood 02/24/2021 11:4 6 AM EST 02/24/2021 11:46 AM EST Kaleb Norwood MD POINT OF CARE TEST O RDERABLES Performing Organization Address City/[facility] Co de Phone Number [facility] [place] [address] * POCT Glucose (02/24/2021 7:46 AM EST) Pathologist [facility] [place] POC Glucose 130 65 - 199 mg/dL [facility] Comment: Supplemental ranges: <140 mg/dL before meals <180 mg/dL all other times of the day Blood 02/24/2021 7:46 AM EST 02/24/2021 7:46 AM EST Alisa Borrero MD POINT OF CAR E TEST ORDERABLES Performing Organization Address [facility] Co de Phone Number [facility] [place] [address] * Differential, Automated (02/24/2021 3:39 AM EST) Pathologist [facility] [place] Neutrophils % 55.2 % [facility] Neutr Abs (ANC) 4.86 1.70 - 6.10 x10(3)/[facility] Lymphocytes % 31.0 % [facility] Lymphocytes Abs 2.7 0.9 - 3.2 x10(3)/[facility] Monocytes % 9.8 % [facility] Monocyte Abs 0.9 0.3 - 0.9 x10(3)/[facility] Eosinophils % 3.1 % [facility] Eosinophils Abs 0.3 0.0 - 0.4 x10(3)/[facility] Basophils % 0.7 % [facility] Basophils Abs 0.1 0.0 - 0.1 x10(3)/[facility] Immature Gran % 0.20 % [facility] Comment: Immature granulocytes(IG's)percentage and absolute count will include metamyelocytes, myelocytes, and promyelocytes. Blood smears from CBCs yielding IG's will be scanned manually for concordance. If this scan disagrees with the automated IG or if promyelocytes are noted, a manual differential will be performed. Nelida Gran Abs 0.02 0.00 - 0.04 x10(3)/[facility] LABORATORY Blood 02/24/2021 3:39 AM EST 02/24/2021 4:07 AM EST Narrative Resulting Agency Comment Spec In Lab Harry Aguilar DO HEMATOLOGY ORDERABLE S Performing Organization Address City/State/[facility] Co de Phone Number [facility] [place] [address] * (ABNORMAL) Hemogram (02/24/2021 3:39 AM EST) WBC 8.8 4.0 - 9.5 x10(3)/[facility] LABORATORY RBC 4.57 4.00 - 5.21 x10(6)/[facility] LABORATORY Hemoglobin 13.6 11.7 - 15.5 g/dL [facility] Hematocrit 42.0 35.7 - 45.8 % [facility] MCV 91.9 82.6 - 94.4 fL [facility] MCH 29.8 27.1 - 32.0 pg [facility] MCHC 32.4 31.7 - 35.0 g/dL [facility] Platelets 250 145 - 357 x10(3)/[facility] LABORATORY RDWSD 47.0(H) 37.0 - 46.0 fL [facility] RDWCV 14.1 11.5 - 14.1 % [facility] MPV 9.1 7.6 - 12.9 fL [facility] nRBC % Auto 0.0 % [facility] nRBC Abs Auto 0.000 0.000 - 0.000 x10(3)/mcL [facility] Blood 02/24/2021 3:39 AM EST 02/24/2021 4:07 AM EST Narrative Resulting Agency Comment Spec In Lab Harry Aguilar HEMATOLOGY ORDERABLE S Performing Organization Address [facility] Co de Phone Number [facility] [place] [address] * Magnesium (02/24/2021 3:39 AM EST) Magnesium 0.85 0.69 - 1.07 mmol/L [facility] Blood 02/24/2021 3:39 AM EST 02/24/2021 4:07 AM EST Narrative Resulting Agency Comment Spec In Lab Alisa Borrero MD CHEMISTRY OR DERABLES Performing Organization Address City/[facility]/ZIP Co de Phone Number [facility] [place] [address] * (ABNORMAL) Basic Metabolic Panel (non-fasting) (02/24/2021 3:39 AM EST) Glucose Lvl 118 65 - 199 mg/dL [facility] Comment:Diabetes: >=200 mg/d L plus symptoms BUN 19(H) 8 - 18 mg/dL [facility] Creatinine 1.00 0.70 - 1.20 mg/dL [facility] Sodium 140 135 - 145 mmol/L [facility] Potassium 3.9 3.5 - 5.0 mmol/L [facility] Comment: Please note: ??Patients with WBC >100,000 may have falsely elevated Potassium levels. ??For accurate Potassium quantification in these patients send serum separator tube (gold top) for subsequent determinations. ??Contact the Clinical Chemistry Laboratory if there are any questions. Chloride 99 98 - 107 mmol/L [facility] CO2 29 22 - 31 mmol/L [facility] Anion Gap 12 5 - 15 mmol/L [facility] Calcium 8.9 8.5 - 10.5 mg/dL [facility] Estimated GFR 59(L) >=60 mL/min/1. 73 m?? [facility] Comment: This patient? s estimated [...] MD CHEMISTRY OR DERABLES Performing Organization Address City/[facility]/ZIP Co de Phone Number [facility] [place] [address] * POCT Glucose (02/23/2021 3:54 PM EST) POC Glucose 143 65 - 199 mg/dL [facility] Comment: Supplemental ranges: <140 mg/dL before meals <180 mg/dL all other times of the day Blood 02/23/2021 3:54 PM EST 02/23/2021 3:54 PM EST Alisa Borrero MD POINT OF CAR E TEST ORDERABLES Performing Organization Address City/[facility]/ZIP Co de Phone Number [facility] [place] [address] * POCT Glucose (02/23/2021 11:28 AM EST) POC Glucose 125 65 - 199 mg/dL [facility] Comment: Supplemental ranges: <140 mg/dL before meals <180 mg/dL all other times of the day Blood 02/23/2021 11:2 8 AM EST 02/23/2021 11:28 AM EST Alisa Borrero MD POINT OF CAR E TEST ORDERABLES Performing Organization Address City/[facility] Co de Phone Number [facility] [place] [address] * POCT Glucose (02/23/2021 7:39 AM EST) Pathologist [facility] [place] POC Glucose 113 65 - 199 mg/dL [facility] Comment: Supplemental ranges: <140 mg/dL before meals <180 mg/dL all other times of the day Blood 02/23/2021 7:39 AM EST 02/23/2021 7:39 AM EST Alisa Borrero MD POINT OF CAR E TEST ORDERABLES Performing Organization Address City/[facility] Co de Phone Number [facility] [place] [address] * Differential, Automated (02/23/2021 4:45 AM EST) Pathologist [facility] [place] Neutrophils % 62.6 % [facility] Neutr Abs (ANC) 5.46 1.70 - 6.10 x10(3)/[facility] LABORATORY Lymphocytes % 25.4 % [facility] Lymphocytes Abs 2.2 0.9 - 3.2 x10(3)/[facility] LABORATORY Monocytes % 8.4 % [facility] Monocyte Abs 0.7 0.3 - 0.9 x10(3)/[facility] LABORATORY Eosinophils % 2.6 % [facility] Eosinophils Abs 0.2 0.0 - 0.4 x10(3)/[facility] LABORATORY Basophils % 0.8 % [facility] Basophils Abs 0.1 0.0 - 0.1 x10(3)/[facility] LABORATORY Immature Gran % 0.20 % [facility] Comment: Immature granulocytes(IG's)percentage and absolute count will include metamyelocytes, myelocytes, and promyelocytes. Blood smears from CBCs yielding IG's will be scanned manually for concordance. If this scan disagrees with the automated IG or if promyelocytes are noted, a manual differential will be performed. Nelida Gran Abs 0.02 0.00 - 0.04 x10(3)/[facility] LABORATORY Blood 02/23/2021 4:45 AM EST 02/23/2021 4:54 AM EST Narrative Resulting Agency Comment Spec In Lab Harry Aguilar DO HEMATOLOGY ORDERABLE S Performing Organization Address City/State/[facility] Co de Phone Number [facility] [place] [address] * (ABNORMAL) Hemogram (02/23/2021 4:45 AM EST) WBC 8.7 4.0 - 9.5 x10(3)/[facility] LABORATORY RBC 4.45 4.00 - 5.21 x10(6)/[facility] LABORATORY Hemoglobin 13.6 11.7 - 15.5 g/dL [facility] Hematocrit 41.2 35.7 - 45.8 % [facility] MCV 92.6 82.6 - 94.4 fL [facility] MCH 30.6 27.1 - 32.0 pg [facility] MCHC 33.0 31.7 - 35.0 g/dL [facility] Platelets 254 145 - 357 x10(3)/[facility] RDWSD 48.0(H) 37.0 - 46.0 fL [facility] RDWCV 14.4(H) 11.5 - 14.1 % [facility] MPV 8.9 7.6 - 12.9 fL [facility] nRBC % Auto 0.0 % [facility] nRBC Abs Auto 0.000 0.000 - 0.000 x10(3)/mcL [facility] Blood 02/23/2021 4:45 AM EST 02/23/2021 4:54 AM EST Narrative Resulting Agency Comment Spec In Lab Harry Harmanmalachi GARCIA HEMATOLOGY ORDERABLE S Performing Organization Address [facility] Co de Phone Number [facility] [place] [address] * Magnesium (02/23/2021 4:45 AM EST) Magnesium 0.94 0.69 - 1.07 mmol/L [facility] Blood 02/23/2021 4:45 AM EST 02/23/2021 4:54 AM EST Narrative Resulting Agency Comment Spec In Lab Alisa Borrero MD CHEMISTRY OR DERABLES Performing Organization Address [facility] Co de Phone Number [facility] [place] [address] * (ABNORMAL) Basic Metabolic Panel (non-fasting) (02/23/2021 4:45 AM EST) Glucose Lvl 109 65 - 199 mg/dL [facility] Comment:Diabetes: >=200 mg/d L plus symptoms BUN 19(H) 8 - 18 mg/dL [facility] Creatinine 0.81 0.70 - 1.20 mg/dL [facility] Sodium 142 135 - 145 mmol/L [facility] Potassium 4.2 3.5 - 5.0 mmol/L [facility] Comment: Please note: ??Patients with WBC >100,000 may have falsely elevated Potassium levels. ??For accurate Potassium quantification in these patients send serum separator tube (gold top) for subsequent determinations. ??Contact the Clinical Chemistry Laboratory if there are any questions. Chloride 104 98 - 107 mmol/L [facility] CO2 28 22 - 31 mmol/L [facility] Anion Gap 10 5 - 15 mmol/L [facility] Calcium 9.1 8.5 - 10.5 mg/dL [facility] Estimated GFR 76 >=60 mL/min/1. 73 m?? [facility] Comment: This patient? s estimated [...] MD CHEMISTRY OR DERABLES Performing Organization Address City/[facility] Co de Phone Number [facility] [place] [phone] * HIV Screen, 4th Generation ([facility]/CGP/APD/NLH) (02/23/2021 4:45 AM EST) Pathologist [facility] [place] HIV-1/2 Ab and Ag Negative Negative [facility] Comment: This 4th Generation HIV [...] HIV Comment Low Risk of HIV Infection [facility] Blood 02/23/2021 4:45 AM EST 02/23/2021 4:54 AM EST Narrative Resulting Agency Comment Spec In Lab Alisa Borrero MD IMMUNOLOGY O RDERABLES [facility] [place] [address] * Lyme IgG & IgM Antibody (02/23/2021 4:45 AM EST) Lyme Screening Antibody Neg Neg [facility] Blood 02/23/2021 4:45 AM EST 02/23/2021 7:26 AM EST Narrative Resulting Agency Comment Spec In Lab Alisa Borrero MD IMMUNOLOGY O RDERABLES Performing Organization Address [facility] Co de Phone Number [facility] [place] [address] * POCT Glucose (02/22/2021 4:52 PM EST) POC Glucose 172 65 - 199 mg/dL [facility] Comment: Supplemental ranges: <140 mg/dL before meals <180 mg/dL all other times of the day Blood 02/22/2021 4:52 PM EST 02/22/2021 4:52 PM EST Alisa Borrero MD POINT OF CAR E TEST ORDERABLES Performing Organization Address [facility] Co de Phone Number [facility] [place] [address] * POCT Glucose (02/22/2021 10:52 AM EST) POC Glucose 146 65 - 199 mg/dL [facility] Comment: Supplemental ranges: <140 mg/dL before meals <180 mg/dL all other times of the day Blood 02/22/2021 10:5 2 AM EST 02/22/2021 10:52 AM EST Alias Borrero MD POINT OF CAR E TEST ORDERABLES Performing Organization Address City/[facility]/ZIP Co de Phone Number [facility] [place] [address] * T4, free (02/22/2021 10:50 AM EST) Free T4 1.15 0.93 - 1.70 ng/dL [facility] Comment: Reference Interval (ng/dL): Females: ??First Trimester: 0.97-1.68 ??Second Trimester: 0.77-1.51 ??Third Trimester: 0.77-1.49 Blood 02/22/2021 10:5 0 AM EST 02/22/2021 11:21 AM EST Narrative Resulting Agency Comment Spec In Lab Alisa Borrero MD CHEMISTRY OR DERABLES Performing Organization Address [facility]/ZIP Co de Phone Number [facility] [place] [address] * (ABNORMAL) T3 Total (02/22/2021 10:50 AM EST) T3, Total 50(L) 75 - 170 ng/dL [facility] Blood 02/22/2021 10:5 0 AM EST 02/22/2021 11:21 AM EST Narrative Resulting Agency Comment Spec In Lab Alisa Borrero MD CHEMISTRY OR DERABLES Performing Organization Address [facility]/ZIP Co de Phone Number [facility] [place] [address] * CRP, acute inflammation (02/22/2021 10:50 AM EST) CRP 3.8 <=4.9 mg/L [facility] Blood 02/22/2021 10:5 0 AM EST 02/22/2021 11:21 AM EST Narrative Resulting Agency Comment Spec In Lab Lea Macdonald MD CHEMISTRY ORDERABLE S Performing Organization Address [facility]/ZIP Co de Phone Number [facility] [place] [address] * BOOGIE (02/22/2021 10:50 AM EST) Antinuclear Ab Test ?Result ? Flag ??Unit ??RefValue Antinuclear Ab, HEp-2 ? <1:80 (Negative) ? <1:80 (Negative) ??Substrate, S ? ADDITIONAL INFORMATION --------- ?Method: Immunofluorescence using HEp-2 cellular substrate. ?Test Performed by: ?[facility] ?[address] [place] [address] ?Intraoperative Neuro Tech: Cornell Orozco M.D. Ph.D.; CLIA# [id number] [facility] Blood 02/22/2021 10:5 0 AM EST 02/22/2021 12:56 PM EST Narrative Resulting Agency Comment Spec In Lab Lea Macdonald MD IMMUNOLOGY ORDERABL ES [facility] [place] [address] * (ABNORMAL) Hepatic Function Panel (02/22/2021 10:50 AM EST) Total Protein 6.7 6.1 - 8.0 g/dL [facility] Albumin 4.2 3.2 - 5.2 g/dL [facility] AST 26 0 - 30 unit/L [facility] ALT 52(H) 0 - 30 unit/L [facility] Alk Phos 74 35 - 105 unit/L [facility] Total Bilirubin 0.6 0.2 - 1.3 mg/dL [facility] Bili, Direct 0.2 0.0 - 0.3 mg/dL [facility] Blood 02/22/2021 10:5 0 AM EST 02/22/2021 11:21 AM EST Narrative Resulting Agency Comment Spec In Lab Lea Macdonald MD CHEMISTRY ORDERABLE S Performing Organization Address City/State/[facility] Co de Phone Number [facility] [place] [address] * ECHO COMPLETE W CONTRAST (02/22/2021 10:36 AM EST) EF 15 HEART[facility] SYSTEM Anatomical Region Laterality Modality Other 02/22/2021 Narrative 02/22/2021 11:07 AM EST Procedure: ?Transthoracic Echocardiogram Patient: ?MARCO AHORTENSIA MUNOZ ? (Age): 1955(65y) Med Rec#: ? [id number] ?Sex: ?F ? Site Loc: ? DH ?Ht / Wt: ??163(cm)/67(kg) Pt. Loc: ?CCU ? BSA: ?1.72 Study Date: ?? 02/22/2021 ?Pt. Type: Inpatient Tape: ? Referring: Lea Hodges I Referring: LISCHKESTEFAN Reading: Raoul Lofton ([id number]) Electric Pile Driver Operator: Isa Anaya Diagnosis: *Unspecified systolic (congestive) heart [...] 02/22/2021 11:07:10 Images reviewed and interpretation verified [facility] Cardiac Ultrasound Laboratory Procedure Note Raoul Lofton MD - 02/22/2021 Procedure: Transthoracic Echocardiogram Patient: DIVYA MUNOZ(Age): 1955(65y) Med Rec#: [id number] Sex: F Site Loc: [facility] Ht / Wt: 163(cm)/67(kg) Pt. Loc: U BSA: 1.72 Study Date: 02/22/2021 Pt. Type: Inpatient Tape: Referring: Lea Hodges I Referring: PAYTON Reading: Raoul Lofton ([id number]) Electric Pile Driver Operator: Isa Anaya Diagnosis: *Unspecified systolic (congestive) heart [...] 02/22/2021 11:07:10 Images reviewed and interpretation verified [facility] Cardiac Ultrasound Laboratory Lea Macdonald MD ECHO ORDERABLES * POCT Glucose (02/22/2021 8:00 AM EST) [facility] POC Glucose 133 65 - 199 mg/dL [facility] Comment: Supplemental ranges: <140 mg/dL before meals <180 mg/dL all other times of the day Blood 02/22/2021 8:00 AM EST 02/22/2021 8:00 AM EST Lea Macdonald MD POINT OF CARE TEST ORDERABLES [facility] [place] [address] * Differential, Automated (02/22/2021 5:15 AM EST) Neutrophils % 59.5 % [facility] Neutr Abs (ANC) 5.65 1.70 - 6.10 x10(3)/[facility] LABORATORY Lymphocytes % 29.8 % [facility] Lymphocytes Abs 2.8 0.9 - 3.2 x10(3)/[facility] LABORATORY Monocytes % 8.7 % [facility] Monocyte Abs 0.8 0.3 - 0.9 x10(3)/[facility] LABORATORY Eosinophils % 1.3 % [facility] Eosinophils Abs 0.1 0.0 - 0.4 x10(3)/[facility] LABORATORY Basophils % 0.5 % [facility] Basophils Abs 0.0 0.0 - 0.1 x10(3)/[facility] LABORATORY Immature Gran % 0.20 % [facility] Comment: Immature granulocytes(IG's)percentage and absolute count will include metamyelocytes, myelocytes, and promyelocytes. Blood smears from CBCs yielding IG's will be scanned manually for concordance. If this scan disagrees with the automated IG or if promyelocytes are noted, a manual differential will be performed. Nelida Gran Abs 0.02 0.00 - 0.04 x10(3)/[facility] LABORATORY Blood 02/22/2021 5:15 AM EST 02/22/2021 5:27 AM EST Narrative Resulting Agency Comment Spec In Lab Duglas Castillo MD HEMATOLOGY ORDERABLE S [facility] [place] [address] * (ABNORMAL) Hemogram (02/22/2021 5:15 AM EST) WBC 9.5 4.0 - 9.5 x10(3)/[facility] LABORATORY RBC 4.42 4.00 - 5.21 x10(6)/[facility] LABORATORY Hemoglobin 13.3 11.7 - 15.5 g/dL [facility] Hematocrit 40.4 35.7 - 45.8 % [facility] MCV 91.4 82.6 - 94.4 fL [facility] MCH 30.1 27.1 - 32.0 pg [facility] MCHC 32.9 31.7 - 35.0 g/dL [facility] Platelets 256 145 - 357 x10(3)/[facility] LABORATORY RDWSD 48.1(H) 37.0 - 46.0 fL [facility] RDWCV 14.4(H) 11.5 - 14.1 % [facility] MPV 9.2 7.6 - 12.9 fL [facility] nRBC % Auto 0.0 % [facility] nRBC Abs Auto 0.000 0.000 - 0.000 x10(3)/[facility] LABORATORY Blood 02/22/2021 5:15 AM EST 02/22/2021 5:27 AM EST Narrative Resulting Agency Comment Spec In Lab Duglas Castillo MD HEMATOLOGY ORDERABLE S Performing Organization Address City/[facility]/ZIP Co de Phone Number [facility] [place] [address] * Magnesium (02/22/2021 5:15 AM EST) Magnesium 0.88 0.69 - 1.07 mmol/L [facility] Blood 02/22/2021 5:15 AM EST 02/22/2021 5:27 AM EST Narrative Resulting Agency Comment Spec In Lab Lea Macdonald MD CHEMISTRY ORDERABLE S Performing Organization Address City/[facility]/ZIP Co de Phone Number [facility] [place] [address] * (ABNORMAL) Basic Metabolic Panel (non-fasting) (02/22/2021 5:15 AM EST) Glucose Lvl 104 65 - 199 mg/dL [facility] Comment:Diabetes: >=200 mg/d L plus symptoms BUN 22(H) 8 - 18 mg/dL [facility] Creatinine 0.90 0.70 - 1.20 mg/dL [facility] Sodium 140 135 - 145 mmol/L [facility] Potassium 4.2 3.5 - 5.0 mmol/L [facility] Comment: Please note: ??Patients with WBC >100,000 may have falsely elevated Potassium levels. ??For accurate Potassium quantification in these patients send serum separator tube (gold top) for subsequent determinations. ??Contact the Clinical Chemistry Laboratory if there are any questions. Chloride 104 98 - 107 mmol/L [facility] CO2 26 22 - 31 mmol/L [facility] Anion Gap 10 5 - 15 mmol/L [facility] Calcium 8.7 8.5 - 10.5 mg/dL [facility] Estimated GFR 67 >=60 mL/min/1. 73 m?? [facility] Comment: This patient? s estimated [...] Lab Lea Macdonald MD CHEMISTRY ORDERABLE S [facility] [place] [address] * COVID-19 PCR (02/22/2021 12:40 AM EST) SARS-CoV-2 RNA PCR Not Detected Not Detected [facility] Comment: This result should be [...] using the Simplexa COVID-19 Direct Assay by [employer] as authorized by the FDA issued Emergency [...] Department of Pathology and Laboratory Medicine at [facility], certified under the Clinical Laboratory Improvement Amendments [...] fact sheets at the following FDA website: https://www.fda.gov/medical-devices/bgzqcyjdjrf-pezizcn-4339-ioncl-40-jqscheflv- use-a cbbrrecjfvfrv-kpcygrz-oozflcm/ujjfl-fxtiexqlqdh-rrwa SARS-CoV-2 Source [employer]ARY SERVICES ASSISTANT Swab MA [facility] Nasopharyngeal Swab 02/23/20 12:40 AM EST 02/22/2021 2:27 AM EST Comment:Symptoms->Surveillan ce Narrative Resulting Agency Comment Spec In Lab Lea Macdonald MD MICROBIOLOGY - GENE RAL ORDERABLES Performing Organization Address City/[facility]/ZIP Co de Phone Number [facility] [place] [address] * POCT Glucose (02/21/2021 10:05 PM EST) POC Glucose 128 65 - 199 mg/dL [facility] Comment: Supplemental ranges: <140 mg/dL before meals <180 mg/dL all other times of the day Blood 02/21/2021 10:0 5 PM EST 02/21/2021 10:05 PM EST Lea Macdonald MD POINT OF CARE TEST ORDERABLES Performing Organization Address [facility]/ZIP Co de Phone Number [facility] [place] [address] * Magnesium (02/21/2021 10:05 PM EST) Magnesium 0.95 0.69 - 1.07 mmol/L [facility] Blood 02/21/2021 10:0 5 PM EST 02/21/2021 10:24 PM EST Narrative Resulting Agency Comment Spec In Lab Lea Macdonald MD CHEMISTRY ORDERABLE S Performing Organization Address City/[facility]/ZIP Co de Phone Number [facility] [place] [address] * (ABNORMAL) BMP w/fasting Glucose (02/21/2021 10:05 PM EST) Glucose Fasting 125(H) 65 - 99 mg/dL [facility] Comment: ?Fasting* Glucose Interpretive Criteria [...] of Diabetes Mellitus, Position Statement from the [place] [employer]. ??Diabetes Care, Volume 33, Supplement 1, Mar 2009 BUN 21(H) 8 - 18 mg/dL [facility] Creatinine 1.07 0.70 - 1.20 mg/dL [facility] Sodium 142 135 - 145 mmol/L [facility] Potassium 3.9 3.5 - 5.0 mmol/L [facility] [...] 31 mmol/L [facility] Anion Gap 12 5 - 15 mmol/L [facility] Calcium 9.4 8.5 - 10.5 mg/dL [facility] Estimated GFR 54(L) >=60 mL/min/1. 73 m?? [facility] Comment: This patient? s estimated [...] Lab Lea Macdonald MD CHEMISTRY ORDERABLE S [facility] [place] [address] * XR Chest One View (02/21/2021 5:00 [...] who have questions please contact the health veterinarian laboratory animal care that requested your imaging first. ? Narrative 02/21/2021 5:16 PM EST EXAMINATION: XR CHEST ONE VIEW CLINICAL HISTORY: sob TECHNIQUE: 1 view of the chest COMPARISON: None FINDINGS: Severe enlargement of the cardiac silhouette. Findings are concerning for any combination of markedly dilated cardiomyopathy and large pericardial effusion. Pulmonary vascular congestion. No obvious effusion on single frontal view. Procedure Note Cara Huston MD - 02/21/2021 EXAMINATION: XR CHEST [...] patients who have questions please contactthe health veterinarian laboratory animal care that requested your imaging first. Lea Macdonald MD IMG DX ORDERABLES * Folate, serum (02/21/2021 4:55 PM EST) Folate Lvl >20.0 4.8 - 24.2 ng/mL [facility] Blood 02/21/2021 4:55 PM EST 02/21/2021 5:08 PM EST Narrative Resulting Agency Comment Spec In Lab Lea Macdonald MD CHEMISTRY ORDERABLE S Performing Organization Address [facility] [place] [place] [address] * Vitamin B12 (02/21/2021 4:55 PM EST) Vitamin B-12 302 232 - 1,245 pg/mL [facility] Blood 02/21/2021 4:55 PM EST 02/21/2021 5:08 PM EST Narrative Resulting Agency Comment Spec In Lab Lea Macdonald MD CHEMISTRY ORDERABLE S Performing Organization Address [facility] Co de Phone Number [facility] [place] [address] * Vitamin D, 25-Hydroxy (02/21/2021 4:55 PM EST) 25-OH Vit D Total 57 21 - 100 ng/mL [facility] 25-OH Vit D Interp Sufficient [facility] Blood 02/21/2021 4:55 PM EST 02/21/2021 5:08 PM EST Narrative Resulting Agency Comment Spec In Lab Lea Macdonald MD CHEMISTRY ORDERABLE S [facility] [place] [address] * (ABNORMAL) Iron and TIBC (02/21/2021 4:55 PM EST) Iron 60 30 - 150 mcg/dL [facility] TIBC 343 250 - 450 mcg/dL [facility] Iron Saturation 17(L) 20 - 50 % [facility] Blood 02/21/2021 4:55 PM EST 02/21/2021 5:09 PM EST Narrative Resulting Agency Comment Spec In Lab Lea Macdonald MD CHEMISTRY ORDERABLE S [facility] [place] [address] * Ferritin (02/21/2021 4:55 PM EST) Ferritin 145 30 - 400 ng/mL [facility] Comment: Pediatric reference ranges not verified at [facility], interpret with caution. Reference ranges for females greater than 50 years of age approach values for men, i.e., 30-400 ng/mL. Blood 02/21/2021 4:55 PM EST 02/21/2021 5:08 PM EST Narrative Resulting Agency Comment Spec In Lab Lea Macdonald MD CHEMISTRY ORDERABLE S Performing Organization Address [facility] Co de Phone Number [facility] [place] [address] * TSH [place] (02/21/2021 4:55 PM EST) TSH 3.99 0.27 - 4.20 mcIU/mL [facility] Comment: Reference Interval (mcIU/mL): Females: ??First Trimester: 0.23-3.88 ??Second Trimester: 0.22-3.90 ??Third Trimester: 0.44-4.66 Blood 02/21/2021 4:55 PM EST 02/21/2021 5:08 PM EST Narrative Resulting Agency Comment Spec In Lab Lea Macdonald MD CHEMISTRY ORDERABLE S Performing Organization Address [facility] Co de Phone Number [facility] [place] [address] * Lactate, whole blood, send to lab ([facility]) (02/21/2021 4:26 PM EST) Pathologist [facility] [place] Lactate WB 1.5 0.5 - 2.2 mmol/L [facility] Blood 02/21/2021 4:26 PM EST 02/21/2021 4:26 PM EST Narrative Resulting Agency Comment Spec In Lab Lea Macdonald MD CHEMISTRY ORDERABLE S Performing Organization Address City/[facility]/ZIP Co de Phone Number [facility] [place] [address] * POCT Glucose (02/21/2021 4:16 PM EST) Pathologist [facility] [place] POC Glucose 124 65 - 199 mg/dL [facility] Comment: Supplemental ranges: <140 mg/dL before meals <180 mg/dL all other times of the day Blood 02/21/2021 4:16 PM EST 02/21/2021 4:16 PM EST Lea Macdonald MD POINT OF CARE TEST ORDERABLES [facility] [place] [address] * Type and Screen Validity (02/21/2021 4:05 PM EST) Pathologist [facility] [place] T&S only valid at [facility] LABORATORY Comment:This Type and Screen result is only valid at the [facility] Blood 02/21/2021 4:05 PM EST 02/21/2021 4:17 PM EST Narrative Resulting Agency Comment Spec In Lab Harry Aguilar BLOOD BANK LAB ORDER CHRISTINE Performing Organization Address City/[facility]/ZIP Co de Phone Number [facility] [place] [address] * ABORH Recheck Status (02/21/2021 4:05 PM EST) [facility] ABORH Recheck Order Order Placed [facility] ABORH Type Recheck Complete [facility] Blood 02/21/2021 4:05 PM EST 02/21/2021 4:17 PM EST Narrative Resulting Agency Comment Spec In Lab Harry Aguilar BLOOD BANK LAB ORDER CHRISTINE [facility] [place] [address] * (ABNORMAL) Differential, Automated (02/21/2021 4:05 PM EST) [facility] Neutrophils % 60.4 % [facility] Neutr Abs (ANC) 6.17(H) 1.70 - 6.10 x10(3)/mc L [facility] Lymphocytes % 31.3 % [facility] Lymphocytes Abs 3.2 0.9 - 3.2 x10(3)/mc L [facility] Monocytes % 6.3 % [facility] Monocyte Abs 0.6 0.3 - 0.9 x10(3)/[facility] LABORATORY Eosinophils % 1.1 % [facility] Eosinophils Abs 0.1 0.0 - 0.4 x10(3)/[facility] LABORATORY Basophils % 0.6 % [facility] Basophils Abs 0.1 0.0 - 0.1 x10(3)/[facility] LABORATORY Immature Gran % 0.30 % [facility] Comment: Immature granulocytes(IG's)percentage and absolute count will include metamyelocytes, myelocytes, and promyelocytes. Blood smears from CBCs yielding IG's will be scanned manually for concordance. If this scan disagrees with the automated IG or if promyelocytes are noted, a manual differential will be performed. [place] Gran Abs 0.03 0.00 - 0.04 x10(3)/[facility] LABORATORY Blood 02/21/2021 4:05 PM EST 02/21/2021 4:23 PM EST Narrative Resulting Agency Comment Spec In Lab Harry Aguilar DO HEMATOLOGY ORDERABLE S Performing Organization Address City/State/[facility] Co de Phone Number [facility] [place] [address] * (ABNORMAL) Hemogram (02/21/2021 4:05 PM EST) WBC 10.2(H) 4.0 - 9.5 x10(3)/[facility] LABORATORY RBC 4.74 4.00 - 5.21 x10(6)/[facility] LABORATORY Hemoglobin 14.5 11.7 - 15.5 g/dL [facility] Hematocrit 43.1 35.7 - 45.8 % [facility] MCV 90.9 82.6 - 94.4 fL [facility] MCH 30.6 27.1 - 32.0 pg [facility] MCHC 33.6 31.7 - 35.0 g/dL [facility] Platelets 294 145 - 357 x10(3)/[facility] LABORATORY RDWSD 47.9(H) 37.0 - 46.0 [facility] LABORATORY RDWCV 14.5(H) 11.5 - 14.1 % [facility] MPV 9.0 7.6 - 12.9 [facility] LABORATORY nRBC % Auto 0.0 % [facility] nRBC Abs Auto 0.000 0.000 - 0.000 x10(3)/[facility] LABORATORY Blood 02/21/2021 4:05 PM EST 02/21/2021 4:23 PM EST Narrative Resulting Agency Comment Spec In Lab Harry Aguilar DO HEMATOLOGY ORDERABLE S [facility] [place] [address] * Antibody screen (02/21/2021 4:05 PM EST) Ab Screen Interp Negative [facility] Expires at [id number] on: 02/24/2021 [facility] Blood 02/21/2021 4:05 PM EST 02/21/2021 4:17 PM EST Narrative Resulting Agency Comment Spec In Lab Harry Aguilar DO BLOOD BANK LAB ORDER CHRISTINE [facility] [place] [address] * ABO/Rh Typing (02/21/2021 4:05 PM EST) ABORH Type A Pos [facility] Blood 02/21/2021 4:05 PM EST 02/21/2021 4:17 PM EST Narrative Resulting Agency Comment Spec In Lab Harry Aguilar DO BLOOD BANK LAB ORDER CHRISTINE [facility] [place] [address] * (ABNORMAL) Phosphorus (02/21/2021 4:05 PM EST) [facility] Phosphorus 5.1(H) 2.5 - 4.5 mg/dL [facility] Blood 02/21/2021 4:05 PM EST 02/21/2021 4:23 PM EST Narrative Resulting Agency Comment Spec In Lab Lea Macdonald MD CHEMISTRY ORDERABLE S Performing Organization Address [facility] Co de Phone Number [facility] [place] [address] * (ABNORMAL) Magnesium (02/21/2021 4:05 PM EST) [facility] Magnesium 0.68(L) 0.69 - 1.07 mmol/L [facility] Blood 02/21/2021 4:05 PM EST 02/21/2021 4:23 PM EST Narrative Resulting Agency Comment Spec In Lab Lea Macdonald MD CHEMISTRY ORDERABLE S Performing Organization Address [facility] de Phone Number [facility] [place] [address] * (ABNORMAL) Basic Metabolic Panel (non-fasting) (02/21/2021 4:05 PM EST) [facility] Glucose Lvl 128 65 - 199 mg/dL [facility] Comment:Diabetes: >=200 mg/d L plus symptoms BUN 21(H) 8 - 18 mg/dL [facility] Creatinine 0.99 0.70 - 1.20 mg/dL [facility] Sodium 140 135 - 145 mmol/L [facility] Potassium 3.8 3.5 - 5.0 mmol/L [facility] Comment: Please note: ??Patients with WBC >100,000 may have falsely elevated Potassium levels. ??For accurate Potassium quantification in these patients send serum separator tube (gold top) for subsequent determinations. ??Contact the Clinical Chemistry Laboratory if there are any questions. Chloride 102 98 - 107 mmol/L [facility] CO2 22 22 - 31 mmol/L [facility] Anion Gap 16(H) 5 - 15 mmol/L [facility] Calcium 9.6 8.5 - 10.5 mg/dL [facility] Estimated GFR 59(L) >=60 mL/min/1. 73 m?? [facility] Comment: This patient? s estimated [...] Lab Lea Macdonald MD CHEMISTRY ORDERABLE S [facility] [place] [address] * (ABNORMAL) APTT (02/21/2021 4:05 PM EST) PTT 51(H) 25 - 37 sec [facility] Comment: The PTT is NOT appropriate for heparin monitoring. Use the Anti-Xa level for heparin monitoring (HEP UFH) or LMWH monitoring (HEP LMW). A PTT less than 37 seconds generally indicates adequate hemostasis. Blood 02/21/2021 4:05 PM EST 02/21/2021 4:23 PM EST Narrative Resulting Agency Comment Spec In Lab Lea Macdonald MD HEMATOLOGY ORDERABL ES Performing Organization Address [facility] de Phone Number [facility] [place] [address] * (ABNORMAL) Prothrombin Time (02/21/2021 4:05 PM EST) PT 13.1(H) 9.4 - 12.5 sec [facility] INR 1.[address] [facility] Comment: An INR <2.0 indicates [...] MD HEMATOLOGY ORDERABL ES Performing Organization Address [facility] de Phone Number [facility] [place] [address] * CARDIAC CATHETERIZATION (02/21/2021 3:40 PM EST) Anatomical Region Laterality Modality Other Narrative 02/21/2021 5:34 PM EST ?[facility] ? Cardiac Catheterization/Intervention Report ? Patient Name: Divya, Stacy ? Procedure Date: 02/21/2021 ? A #: [id number] ? Primary Physician: Lea Hodges I ? Case #: [id number] ? File Name: [id number] ? Catheterization Order Number: [id number] ? [facility] ? Final Report [place], [place] ? Patient Name: ? Stacy Carbon ?ID#: ?[id number] ? : ?1955 ? Procedure Date: ? February 21, 2021 ?Case #: ? [id number] ? Room: ? 6 ? Case Physician: [...] procedure was Elective. The indication for ?the chemical laboratory chief visit is LV dysfunction. Chest pain symptom [...] 02/21/2021 ??17:25 ? Procedure Note Lea Hodges MD - 02/21/2021 [facility] Cardiac Catheterization/Intervention Report Patient Name: Stacy Esparza Procedure Date: 02/21/2021 A #: [id number] Primary Physician: Lea Hodges I Case #: [id number] File Name: [id number] Catheterization Order Number: [id number] [facility] FinalReport [place], [place] Patient Name: Stacy Esparza ID#:[id number] :1955 Procedure Date: February 21, 2021 Case [...] diagnostic procedure was Elective. Theindication for the chemical laboratory chief visit is LV dysfunction. Chest pain symptom [...] (Bezet) 493 ms MUSE SYSTEM Calculated P [place] 69 degrees MUSE SYSTEM Calculated R [place] -75 degrees MUSE SYSTEM Calculated T [place] 107 degrees MUSE SYSTEM INTERPRETATION Significant artifact present Normal sinus rhythm Possible Left atrial enlargement Left axis deviation Abnormal ECG T-wave inversion in Anterior leads When compared with ECG of 06-MAY-2012 12:01, QRS axis Shifted left Confirmed by fellow MD Hsieh Daniel ([id number]) on 02/21/2021 11:56:48 AM Confirmed by MD Bravo Jon ([id number]) on 02/21/2021 12:52:51 PM MUSE SYSTEM 02/21/2021 10:2 2 AM EST 02/21/2021 12:52 PM EST Lea Macdonald MD ECG ORDERABLES [facility] documented in this encounter Visit Diagnoses Diagnosis Screening for cardiovascular condition Screening for other and unspecified cardiovascular conditions Cardiomyopathy, unspecified type HFrEF (heart failure with reduced ejection fraction) Screening for cardiovascular condition Screening for other and unspecified cardiovascular conditions Cardiomyopathy, unspecified type HFrEF (heart failure with reduced ejection fraction) documented in this encounter Admitting Diagnoses Diagnosis CAD (coronary artery disease) Coronary atherosclerosis of unspecified type of vessel, [place] or graft documented in this encounter Administered [...] Given 02/25/2021 8:57 AM EST 20 mg fentaNYL (pf) (50 mcg/mL) multi-dose injection ONCE PRN, Starting on Sat02/21/21 at 1324, Until Sat02/21/21 at 1557, Cath (Intra-Procedure), Routine Given 02/21/2021 1:24 PM EST 25 mcg furosemide (Lasix) (10 mg/mL) injection ONCE PRN, Starting on Sat02/21/21 at 1421, Until Sat02/21/21 at 1557, Cath (Intra-Procedure), Routine Given 02/21/2021 3:16 PM EST 80 mg Given 02/21/2021 2:21 PM EST 40 mg gadoterate meglumine (Dotarem) (0.5 mMol/mL) injection [...] weight of tube = 37.5 grams., Routine heparin (porcine) (1,000 units/mL) injection ONCE PRN, Starting on Sat02/21/21 at 1412, Until Sat02/21/21 at 1557, Cath (Intra-Procedure), Routine Given 02/21/2021 2:12 PM EST 3,000 Units insulin lispro (HumaLOG;Admelog) (100 unit/mL) subcutaneous injection [...] Given 02/22/2021 5:03 PM EST 1 Units iohexoL (Omnipaque) (350 mg/mL) solution ONCE PRN, Starting on Sat02/21/21 at 1448, Until Sat02/21/21 at 1557, Cath (Intra-Procedure), Routine Given 02/21/2021 2:48 PM EST 102 mLs ipratropium-albuteroL (Duoneb) 0.5 mg-3 mg(2.5 mg base)/3 mL nebulizer solution 3 mL 3 mL, Nebulization, 4 TIMES DAILY PRN, Starting on Araceli 02/23/21 at 1317, Until 02/26/21 at 1336, Wheezing, cough, shortness of breath, Routine Given 02/24/2021 4:51 PM EST 3 mLs Given 02/23/2021 3:02 PM EST 3 mLs levothyroxine (Synthroid) tablet 50 mcg 50 mcg, Oral, DAILY, First dose (after last modification) on 02/25/21 at 0900, Until Discontinued, Routine [...] Given 02/25/2021 8:57 AM EST 400 mg metoprolol succinate XL (Toprol-XL) tablet 100 mg 100 mg, Oral, DAILY, First dose on Sat02/25/21 at 1700, Until Discontinued, DO NOT CRUSH OR OPEN, Routine Given 02/26/2021 8:48 AM EST 100 mg Given 02/25/2021 5:27 PM EST 100 mg midazolam (pf) (Versed) (1 mg/mL) multi-dose injection ONCE PRN, Starting on Sat02/21/21 at 1324, Until Sat02/21/21 at 1557, Cath (Intra-Procedure), Routine Given 02/21/2021 1:24 PM EST 1 mg nitroGLYcerin (200 mcg/mL) in dextrose 5% 250 mL infusion CONTINUOUS PRN, Starting on Sat02/21/21 at 1505, Until Sat02/21/21 at 1557, Cath (Intra-Procedure), Routine New Bag 02/21/2021 3:05 PM EST 50 mcg/min 15 m L/hr nitroGLYcerin 100 mcg/mL intracoronary dilution ONCE PRN, Starting on Sat02/21/21 at 1324, Until Sat02/21/21 at 1557, Cath (Intra-Procedure), Routine Given 02/21/2021 1:24 PM EST 150 mcg sodium chloride 0.9 % (flush) (BD PosiFlush Normal Saline 0.9) flush 5 mL 5 mL, Intravenous, 2 TIMES DAILY, First dose on Sat02/21/21 at 2100, Until Discontinued, Routine Given 02/26/2021 8:56 AM EST 5 mLs Given 02/25/2021 9:07 PM EST 5 mLs Given 02/25/2021 8:58 AM EST 5 mLs spironolactone (Aldactone) tablet 12.5 mg 12.5 mg, [...] Given 02/25/2021 8:57 AM EST 40 mg verapamiL (Isoptin) (2.5 mg/mL) injection ONCE PRN, Starting on Sat02/21/21 at 1325, Until Sat02/21/21 at 1557, Administer over 2 Minutes, Cath (Intra-Procedure) Given 02/21/2021 1:25 PM EST 2.5 mg documented in this encounter Active and Recently Administered Medications Times are shown in EST. Scheduled Medication Order 02/24/2021 02/25/2021 02/26/2021 aspirin EC tablet 81 mg 81 mg, Oral, DAILY, First dose on Sat02/21/21 at 1645, Until Discontinued, Routine 2003 (Given - Provider: Vonda Arango RN) 2104 (Given - Provider: Vonda Arango RN) atorvastatin (Lipitor) tablet 80 mg 80 mg, Oral, EVERY EVENING, First dose on Sat02/22/21 at 1700, Until Discontinued, Routine 1646 (Given - Provider: Miguel A Nunes RN) 1714 (Given - Provider: Denisse Michaels, NIESHA) enoxaparin (Lovenox) (40 mg/0.4 mL) subcutaneous injection [...] RN)2003 (Given - Provider: Vonda Arango RN) 0857 (Given - Provider: Denisse Michaels, NIESHA)2104 (Given - Provider: Vonda Arango RN) 0848 (Given - Provider: Denisse Michaels, NIESHA) furosemide (Lasix) (10 mg/mL) injection 80 mg [...] Michaels RN) 0848 (Given - Provider: Denisse J Xenia, RN) magnesium oxide (Mag-Ox) tablet 400 mg 400 mg, Oral, 2 TIMES DAILY, First dose on Sat02/21/21 at 2100, Until Discontinued, Routine 0900 (Given - Provider: Jaziel Romero, NIESHA)2004 (Given - Provider: Vonda Arango, RN) 0857 (Given - Provider: Denisse Michaels, NIESHA)2105 (Given - Provider: Vonda Arango, RN) 0848 (Given - Provider: Denisse Michaels, NIESHA) magnesium sulfate 2 g in sterile water 50 mL infusion (COMPLETED) 2 g, Intravenous, ONCE, 1 dose, On 02/25/21 at 0300, Administer over 120 Minutes 0328 (New Bag - Provider: Vonda Arango, NIESHA)0528 (Stopped - Provider: Cornell Cruz, NIESHA) metoprolol succinate XL (Toprol-XL) tablet 100 mg 100 mg, Oral, DAILY, First dose on Sat02/25/21 at 1700, Until Discontinued, DO NOT CRUSH OR OPEN, Routine 1727 (Given - Provider: Denisse Michaels RN) 0848 (Given - Provider: Denisse Michaels, NIESHA) metoprolol tartrate (Lopressor) tablet 12.5 mg (CANCELED) 12.5 mg, Oral, EVERY 6 HOURS SCHEDULED, First dose on Sat02/23/21 at 1200, Until Discontinued, Hold for HR < 50, SBP < 90, Routine 0040 (Given - Provider: Cornell Cruz RN)0636 (Given - Provider: Cornell Cruz, NIESHA) metoprolol tartrate (Lopressor) tablet 25 mg (CANCELED) 25 mg, Oral, EVERY 6 HOURS SCHEDULED, First dose (after last modification) on Sat02/24/21 at 1200, Until Discontinued, Hold for HR < 50, SBP < 90, Routine 1135 (Given - Provider: Jaziel Romero, NIESHA)1706 (Given - Provider: Miguel A Nunes RN) 0000 (Not Given - Provider: Vonda Arango RN - Reason: Order parameters not met)0545 (Given - Provider: Cornell Cruz, NIESHA) potassium chloride ER (K-Dur/Klor-Con) tablet 40 mEq [...] RN)2004 (Given - Provider: Vonda Arango RN) 0858 (Given - Provider: Denisse Michaels RN)210 (Given - Provider: Vonda Arango RN) 0856 (Given - Provider: Denisse Michaels, NIESHA) spironolactone (Aldactone) tablet 12.5 mg 12.5 mg, Oral, DAILY, First dose on Araceli 02/23/21 at 1115, Until Discontinued, DO NOT SPLIT, CRUSH OR OPEN, Routine 0900 (Given - Provider: Jaziel Romero RN) 0857 (Given - Provider: Denisse Michaels RN) 0848 (Given - Provider: Denisse Michaels RN) torsemide (Demadex) tablet 40 mg 40 mg, Oral, 2 TIMES DAILY, First dose on Sat02/25/21 at 0900, Until Discontinued, Routine 0857 (Given - Provider: Denisse Michaels RN)1714 (Given - Provider: Denisse Michaels RN) 0848 (Given - Provider: Denisse Michaels, NIESHA) PRN Medication Order 02/24/2021 02/25/2021 02/26/2021 benzonatate (Tessalon) capsule 100 mg 100 mg, Oral, 3 TIMES DAILY PRN, Starting on Araceli 02/23/21 at 1317, Until 02/26/21 at 1336, Cough, DO NOT CRUSH OR OPEN, Routine 165 (Given - Provider: Miguel A Nunes RN) dextrose 10% infusion(Linked Group 2) 250 mL, at 1,000 mL/hr, Intravenous, EVERY 30 MIN PRN, Starting on e 02/21/21 at 1803, Until 02/26/21 at 1336, For [...] Intramuscular, EVERY 30 MIN PRN, Starting on Tu02/21/21 at 1803, Until 02/26/21 at 1336, Low [...] Buccal, EVERY 30 MIN PRN, Starting on Tu02/21/21 at 1803, Until 02/26/21 at 1336, Low [...] Subcutaneous, ONCE PRN, 1 dose, Starting on Tu02/21/21 at 1557, Until 02/26/21 at 1336, for discomfort with PIV insertion, Routine sodium chloride 0.9 % (flush) (BD PosiFlush Normal Saline 0.9) flush 5-20 mL 5-20 mL, Intravenous, EVERY 1 MIN PRN, Starting on Sat02/21/21 at 1557, Until Sat02/26/21 at 1336, flush, Flush pertains to all [...] Routine documented in this encounter Care Teams Administration Professional Relationship Specialty Start Date End Date Angela Cotto MD [address] [place] [address] PCP - General Family Medicine 02/20/21 07/30/21 documented as of this encounter
--- OUTSIDE RECORDS SUMMARY | 2023-10-16 01:26 | XMS_ITS | Encounter Summary ---
Author Organization [facility] [place] [address] Care Team Providers Care Scrap Hooker Name Role Phone Unavailable Primary Care Provider Unavailabl e Encounter Details Date Type Department Care Team (Latest Contact Info) Description 05/06/2012 6:59 AM EST - 05/07/2012 10:37 AM EST Hospital Encounter Intermediate [place] [address] Raoul Martin MD [facility] [place] [address] Other primary cardiomyopathies Discharge Disposition: Home Social History Tobacco Use Types Packs/Day Years Used Date Smoking Tobacco: Former Cigarettes 0 05/06/2002 - 05/06/2012 Smokeless Tobacco: Never Tobacco Cessation:Counseling Given: Yes Alcohol Use Standard Drinks/Week Comments No 0 (1 standard drink = 0.6 oz pur e alcohol) none in last 3 months Sex and Gender Information Value Date Recorded Sex Assigned at Not on file Gender Identity Not on file Sexual Orientation Not on file documented as of this encounter Last Filed Vital Signs Vital Sign Reading Time Taken Comments Blood Pressure 127/49 05/07/2012 7:00 AM EST Pulse 82 05/07/2012 7:00 AM EST Temperature 36.5 ??C (97.7 ??F) 05/07/2012 7:00 AM ES T Respiratory Rate 18 05/07/2012 7:00 AM EST Oxygen Saturation 91% 05/07/2012 7:00 AM EST Inhaled Oxygen Concentration - - Weight 66.7 kg (147 lb 0.8 oz) 05/07/2012 6:15 A M EST Height 162.6 cm (5' 4.02) 05/06/2012 1:55 PM ES T Body Mass Index 25.23 05/06/2012 1:55 PM EST documented in this encounter Discharge Instructions * Patient Instructions* Cipriano Morales - 05/07/2012 8:42 AM EST Anti-coagulation follow up: N/A Call your doctor if: Chest pain, dyspnea, pain or swelling in legs occurs. If you have non-emergent questions between now and the time of your follow up appointments: During 8am-5pm Saturday through Saturday call [phone] to speak with a nurse in the cardiology clinic All other times call [phone] and ask to speak to the underground foreman front office supervisor. Return to work: One week Driving: No driving for 48 hours after catheterization. Follow up Appointments: PCP Call for appointment in 1-2 weeks. 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 Please call for appointment Home oxygen therapy: N/A Arrangements for VNA/home care: none documented in this encounter Medications at Time of Discharge Medication Sig Dispensed Refills Start Date End Date nitroGLYcerin (NITROSTAT) 0.[address] 1 tablet under the tongue daily as needed for Chest pain. 90 tablet 3 05/07/2012 aspirin 81 mg EC tablet Take 81 mg by mouth daily. multivitamin (THERAGRAN) tablet Take 1 tablet by mouth daily. clopidogrel (PLAVIX) 75 mg tablet Take 1 tablet by mouth daily. 30 tablet 11 05/07/2012 02/20/2021 levothyroxine (SYNTHROID) 50 mcg tablet Take 150 mcg by mouth daily. 02/26/2021 digoxin (LANOXIN) 125 mcg tablet Take 125 mcg by mouth daily. 02/20/2021 liothyronine (CYTOMEL) 5 mcg tablet Take 10 mcg by mouth daily. 02/26/2021 lisinopril (PRINIVIL;ZESTRIL) 10 mg tablet Take 10 mg by mouth daily. 02/20/2021 furosemide (LASIX) 80 mg tablet Take 80 mg by mouth every morning. 02/26/2021 furosemide (LASIX) 40 mg tablet Take 40 mg by mouth every evening. 02/26/2021 metoprolol tartrate (LOPRESSOR) 50 mg tablet Take 100 mg by mouth daily. 02/26/2021 sertraline (ZOLOFT) 25 mg tablet Take 50 mg by mouth daily. 02/20/2021 ergocalciferol (ERGOCALCIFEROL) 50,000 unit capsule Take 50,000 Units by mouth once a week. Takes on saturday02/20/2021 riboflavin 100 mg Tab Take 100 mg by mouth daily. 02/20/2021 Coenzyme Q10 (CO Q-10) 200 mg Cap Take 200 mg by mouth daily. 02/20/2021 Magnesium 84 mg TbSR Take 84 mg by mouth daily. 02/20/2021 OMEGA-3 FATTY ACIDS (FISH OIL CONCENTRATE ORAL) Take 1,200 mg by mouth 2 times daily. 02/20/2021 ascorbic acid (VITAMIN C) 500 mg tablet Take 500 mg by mouth 2 times daily. 02/20/2021 documented as of this encounter Progress Notes * Raoul Martin MD - 05/07/2012 2:41 PM EST Staff Discharge Note The patient was interviewed and examined today 05/07/2012 during morning rounds. Detailed findings are as per Dr. Barbosa's note above of 05/07/2012. Cath yesterday showed 2 vessel CAD with moderate LAD stenosis and total occlusion of RCA. Ms. Esparza has done well post PCI of RCA. She is ambulating and ready for discharge. She is not having chest pain, SOB or lightheadedness. Cath site is benign. Findings and plans were reviewed with the patient We again reviewed importance of rehab, not smoking, indications for various medications including recommendations for statin, clopidogrel 75 mg po daily for a minimum of 12 months in the setting of multiple HUGO and aspirin indefinitely. Details are outlined in the discharge summary. * Kimberly Osei RN - 05/07/2012 9:46 AM EST Cardiac Rehabilitation Inpatient Evaluation Primary Cardiac Diagnosis: SD/PCI Cardiac Risk Factors: Smoking: yes Overweight: slight Hyperlipidemia: yes Sedentary: more so recently due to increasing sx HTN: yes Family history: no DM: no Stress: some Patient Education: Reviewed cardiac cath findings, implications of coronary artery disease, managing angina and risk factor modification. Mrs. Esparza has been very limited due to increasing SOB. Sheis hoping to get back to being active again. She has CM w/EF of 25%. She has claudication that prevents her from doing sustained walks. Given parameters for how to progress with home exercise. She is very interested in quitting tobacco and has discussed with her PCP. She would like to try Chantix. She has a good friend (lab support technician RN) who recently quit w/Chantix. She is going to talk to the team about a prescription. We discussed side-effects of Chantix and other methods of quitting. Gave her the Smoking Cessation packet. She will follow-up with her PCP. Phase II Referral: [facility] Activity Summary: By discharge, patient will be able to perform self care, walk 5-7 minutes and go up and down stairs without signs or symptoms of ischemia. Date /Initials Baseline Response Symptoms/Comments Activity HR 90 95 Some calf cramping with stairs, not a new Walk/stairs BP 98/58 140/60 Sx for her. O2 Sat 94% 95% Of note, patient stated her ability to walk ECG SR SR This far and fast was a huge improvement * Oscar Maynard RN - 05/07/2012 9:30 AM EST IV and Tele discontinued per order. Discharge education and paperwork reviewed with and given to Pt. Pt worked with cardiac rehab. Pt discharged off unit on own power with no c/o pain, SOB or discomfort. Daughter with Pt, who will drive her home. * Cipriano Morales - 05/07/2012 7:49 AM EST Inpatient Cardiology Discharge Day Note Patient Name: Stacy Esparza Service: S1 Responsible Attending:Dr Martin Reason for continued hospitalization: Evaluation and management of Post PCI. Active Problems: CAD Interval History: A 56 years old female with history of HTN, hyperlipidemia, CHF, hypothyroidism, and smoking was diagnosed with severe cardiomyopathy of unclear etiology. Her primary symptoms were dyspnea on exertion, PND, and orthopnea. A nuclear stress showed a reversible defect in the inferior wall. She was brought to cardiac lab support technician. Her angiogram showed a 50 % lesion in the mid-LAD and a totally occluded mid-RCA with good collaterals from the Left coronary arteries. A successful balloon angioplasty with 3 HUGO (Promus element 3 x 28, 3 x 38 and 3 x 8 mm) inserted in the proximal to distal RCA. Telemetry: HR:sinus rhythm Meds: Current Facility-Administered Medications Ordered in Epic Medication Dose Route Frequency Provider Last Rate Last Dose ??? ascorbic acid (VITAMIN C) tablet 500 mg 500 mg Oral BID Cipriano Morales MD ??? aspirin EC tablet 81 mg 81 mg Oral Daily Cipriano Morales MD 81 mg at 05/06/12 1630 ??? digoxin (LANOXIN) tablet 125 mcg 125 mcg Oral Daily Cipriano Morales MD ??? ergocalciferol (ERGOCALCIFEROL) capsule 50,000 Units 50,000 Units Oral Weekly Leonel Morales MD ??? furosemide (LASIX) tablet 40 mg 40 mg Oral QPM Cipriano Morales MD 40 mg at 05/06/12 1700 ??? furosemide (LASIX) tablet 80 mg 80 mg Oral Cipriano Aviles MD 80 mg at 05/07/12 0700 ??? levothyroxine (SYNTHROID) tablet 50 mcg 50 mcg Oral Cipriano Aviles MD 50 mcg at 05/07/12 0600 ??? liothyronine (CYTOMEL) tablet 10 mcg 10 mcg Oral Daily Cipriano Morales MD ??? lisinopril (PRINIVIL;ZESTRIL) tablet 10 mg 10 mg Oral Daily Cipriano Morales MD ??? magnesium oxide (MAG-OX) tablet 200 mg 200 mg Oral Daily Cipriano Morales MD 200 mg at 05/06/12 1630 ??? metoprolol tartrate (LOPRESSOR) tablet 50 mg 50 mg Oral BID Cipriano Morales MD ??? multivitamin (THERAGRAN) tablet 1 tablet 1 tablet Oral Daily Cipriano Morales MD 1 tablet at 05/06/12 1630 ??? riboflavin tablet 100 mg 100 mg Oral Daily Cipriano Morales MD 100 mg at 05/06/12 1630 ??? sertraline (ZOLOFT) tablet 50 mg 50 mg Oral Daily Cipriano Morales MD ??? sodium chloride 0.9% infusion 75 mL/hr Intravenous Continuous Cipriano Morales MD 75 mL/hr at 05/06/12 1205 75 mL/hr at 05/06/12 1205 ??? acetaminophen (TYLENOL) tablet 650 mg 650 mg Oral Q6H PRN Cipriano Morales MD ??? clopidogrel (PLAVIX) tablet 75 mg 75 mg Oral Daily Cipriano Morales MD ??? nitroGLYcerin (NITROSTAT) SL tablet 0.4 mg 0.4 mg Sublingual Daily PRN Cipriano Morales MD ??? DISCONTD: sodium chloride 0.9 % flush 5 mL 5 mL Intravenous Q12H Vicky Dickinson PA 5 mL at 05/06/12 0745 ??? DISCONTD: sodium chloride 0.9% infusion 200 mL/hr Intravenous Continuous Vicky Dickinson PA 200 mL/hr at 05/06/12 0734 200 mL/hr at 05/06/12 0734 ??? DISCONTD: clopidogrel (PLAVIX) tablet Once PRN Raoul Martin MD 600 mg at 05/06/12 0904 ??? DISCONTD: bivalirudin (ANGIOMAX) injection Once PRN Raoul Martin MD 50.3 mg at 05/06/12 0910 ??? DISCONTD: bivalirudin (ANGIOMAX) 250 mg in sodium chloride 0.9% 50 mL infusion (SOCIAL DIRECTOR) Continuous PRN Raoul Martin MD 1.75 mg/kg/hr at 05/06/12 0914 ??? DISCONTD: sodium chloride 0.9% infusion Continuous PRN Raoul Martin MD 300 mL at ??? DISCONTD: nitroGLYCerin 100 mcg/mL intracoronary dilution Once PRN Raoul Martin MD 100 mcg at 05/06/12 1012 ??? DISCONTD: iohexol (OMNIPAQUE) 350 mg iodine/mL injection Once PRN Raoul Martin MD 160 mL at 05/06/12 1051 ??? DISCONTD: atropine injection 1 mg 1 mg Intravenous Q15 Min PRN Cipriano Morales MD ??? DISCONTD: fentaNYL 50mcg/mL injection 25 mcg Intravenous Q15 Min PRN Cipriano Morales MD ??? DISCONTD: midazolam (VERSED) injection 1 mg 1 mg Intravenous Q30 Min PRN Cipriano Morales MD No current Epic-ordered outpatient prescriptions on file. Physical Exam: Vital Signs: Last value Range last 8 hrs Temperature Temp: 36.5 ??C (97.7 ??F) Temp: [36.5 ??C (97.7 ??F)] Heart Rate Heart Rate: 82 Heart Rate: [72-82] Blood Pressure BP: 127/49 mmHg BP: (102-127)/(45-49) Respiratory Rate Resp: 18 Resp: [18] SpO2 SpO2: 91 % SpO2: [91 %-93 %] Physical Exam Lab Comments: Recent Results (from the past 24 hour(s)) CARDIAC ENZYMES Component Value Range Troponin-T <0.03 <=0.03 (ng/mL) CK, Total 54 0 - 160 (unit/L) CBC (WITH DIFF) Component Value Range WBC 10.0 4.0 - 10.0 (x10(3)/mcL) RBC 4.22 3.93 - 5.22 (x10(6)/mcL) Hemoglobin 12.6 11.2 - 15.7 (gm/dL) Hematocrit 38.2 34.0 - 45.0 (%) MCV 90.5 79.0 - 94.0 (fL) MCH 29.9 26.6 - 32.2 (pg) MCHC 33.0 32.0 - 36.5 (gm/dL) Platelets 232 145 - 370 (x10(3)/mcL) RDWSD 61.4 (*) 35.0 - 46.0 (fL) RDWCV 18.5 (*) 10.9 - 14.4 (%) MPV 9.0 9.0 - 12.0 (fL) CARDIAC ENZYMES Component Value Range Troponin-T <0.03 <=0.03 (ng/mL) CK, Total 48 0 - 160 (unit/L) BMP W/FASTING GLUCOSE Component Value Range Glucose Fasting 94 65 - 99 (mg/dL) BUN 18 8 - 18 (mg/dL) Creatinine 0.75 0.70 - 1.20 (mg/dL) Sodium 140 135 - 145 (mmol/L) Potassium 3.9 3.5 - 5.0 (mmol/L) Chloride 104 98 - 107 (mmol/L) CO2 27 22 - 31 (mmol/L) Anion Gap 9 5 - 15 (mmol/L) Calcium 8.7 8.5 - 10.5 (mg/dL) Estimated GFR >60 >=60 DIFFERENTIAL, AUTOMATED Component Value Range Neutrophils % 58.2 34.0 - 71.0 (%) Neutr Abs (ANC) 5.84 1.50 - 6.30 (x10(3)/mcL) Lymphocytes % 30.0 19.0 - 53.0 (%) Lymphocytes Abs 3.0 1.0 - 3.6 (x10(3)/mcL) Monocytes % 8.7 4.0 - 13.0 (%) Monocyte Abs 0.9 0.2 - 1.0 (x10(3)/mcL) Eosinophils % 2.3 0.0 - 7.0 (%) Eosinophils Abs 0.2 0.0 - 0.5 (x10(3)/mcL) Basophils % 0.4 0.0 - 2.0 (%) Basophils Abs 0.0 0.0 - 0.2 (x10(3)/mcL) Immature Gran % 0.40 0.00 - 0.66 (%) Nelida Gran Abs 0.04 0.00 - 0.05 (x10(3)/mcL) Pertinent Radiographic/Diagnostic Results: ECG: Discharge Medication Checklist: Aspirin Yes Clopidogrel/prasugrel Yes Costa inhibitor/or ARB Yes Beta Myrna Yes Lipid Lowering Yes Nitroglycerin Yes Assessment: Stacy Esparza is a 56 y.o. female with history of HTN, hyperlipidemia, CHF, hypothyroidism, and smoking was diagnosed with severe cardiomyopathy of unclear etiology. Her primary symptoms were dyspnea on exertion, PND, and orthopnea. A nuclear stress showed a reversible defect in the inferior wall. She was brought to cardiac lab support technician. Her angiogram showed a 50 % lesion in the mid-LAD and a totally occluded mid-RCA with good collaterals from the Left coronary arteries. A successful balloon angioplasty with 3 HUGO (Promus element 3 x 28, 3 x 38 and 3 x 8 mm) inserted in the proximal to distal RCA. She did very well overnight. She had no symptoms and was ambulating with no issues. Plan: 1. Discharge home 2. Continue plavix for at least 1 year and ASA indefinitely. 3. Aggressive risk factors modification. 4.Encourage to stop smoking 5. Follow up cardiology office in 2-4 weeks. * Ida Fleming RN - 05/06/2012 6:25 PM EST Pt up off bed rest. Right groin negative. documented in this encounter H&P Notes * Raoul Martin MD - 05/06/2012 11:14 AM EST Interventional Cardiology Post-PCI H&P Reason for Admission: s/p PCI History: A 56 years old female with history of HTN, hyperlipidemia, hypothyroidism, and smoking was diagnosed with severe cardiomyopathy of unclear etiology. Her primary symptoms were dyspnea on exertion, PND, and orthopnea. A nuclear stress showed a reversible defect in the inferior wall. She was brought to cardiac lab support technician. Her angiogram showed a 50 % lesion in the mid-LAD and a totally occluded mid-RCA with good collaterals from the Left coronary arteries. A successful balloon angioplasty with 3 HUGO (Promus element 3 x 28, 3 x 38 and 3 x 8 mm) inserted in the proximal to distal RCA. This patient is admitted post PCI for IV hydration, pain management, access site management in the setting of anticoagulation, serial cardiac biomarker monitoring, telemetry monitoring, evaluation oftheir medical condition, and cardiac rehabilitation. PMH: Patient Active Problem List Diagnoses ??? Other primary cardiomyopathies ??? Alcohol abuse, unspecified ??? Hyperpotassemia ??? Cardiogenic shock ??? Unspecified hypothyroidism Outpatient Prescriptions Marked as Taking for the 05/06/12 encounter (Hospital Encounter) with Raoul Martin MD Medication Sig Dispense Refill ??? levothyroxine (SYNTHROID) 50 mcg tablet Take 50 mcg by mouth daily. ??? digoxin (LANOXIN) 125 mcg tablet Take 125 mcg by mouth daily. ??? liothyronine (CYTOMEL) 5 mcg tablet Take 10 mcg by mouth daily. ??? lisinopril (PRINIVIL;ZESTRIL) 10 mg tablet Take 10 mg by mouth daily. ??? furosemide (LASIX) 80 mg tablet Take 80 mg by mouth every morning. ??? furosemide (LASIX) 40 mg tablet Take 40 mg by mouth every evening. ??? metoprolol tartrate (LOPRESSOR) 50 mg tablet Take 50 mg by mouth 2 times daily. ??? sertraline (ZOLOFT) 25 mg tablet Take 50 mg by mouth daily. ??? ergocalciferol (ERGOCALCIFEROL) 50,000 unit capsule Take 50,000 Units by mouth once a week. Takes on saturday ??? riboflavin 100 mg Tab Take 100 mg by mouth daily. ??? aspirin 81 mg EC tablet Take 81 mg by mouth daily. ??? Coenzyme Q10 (CO Q-10) 200 mg Cap Take 200 mg by mouth daily. ??? Magnesium 84 mg TbSR Take 84 mg by mouth daily. ??? OMEGA-3 FATTY ACIDS (FISH OIL CONCENTRATE ORAL) Take 1,200 mg by mouth 2 times daily. ??? ascorbic acid (VITAMIN C) 500 mg tablet Take 500 mg by mouth 2 times daily. ??? multivitamin (THERAGRAN) tablet Take 1 tablet by mouth daily. Allergies as of 05/01/2012 ??? (No Known Allergies) History Social History ??? Marital Status: Spouse Name: N/A Number of Children: N/A ??? Years of Education: N/A Occupational History ??? Not on file. Social History Main Topics ??? Smoking status: Not on file ??? Smokeless tobacco: Not on file ??? Alcohol Use: No none in last 3 months ??? Drug Use: No ??? Sexually Active: Other Topics Concern ??? Not on file Social History Narrative ??? No narrative on file Physical Exam Last value Range last 8 hrs Temperature Temp: 36.6 ??C (97.9 ??F) Temp: [36.6 ??C (97.9 ??F)] Heart Rate Heart Rate: 77 Heart Rate: [75-77] Blood Pressure BP: 127/54 mmHg BP: (117-127)/(54-70) Respiratory Rate Resp: 17 Resp: [16-17] SpO2 SpO2: 97 % SpO2: [93 %-97 %] General: well-appearing, NAD HEENT: NC/AT, anicteric sclerae, OP clear, MMM Neck: supple, no LAD, no bruits or JVP Lungs: CTAB CV: RRR, S1, S2, no M/R/G Abd: NABS, soft, NT, ND Ext: no C/C/E Vascular: 2+ radial, femoral, DP, PT pulses b/l Assessment: A 56 years old female with history as listed was diagnosed with severe cardiomyopathy of unclear etiology. Her primary symptoms were dyspnea on exertion, PND, and orthopnea. A nuclear stress showed areversible defect in the inferior wall. She was brought to cardiac lab support technician. Her angiogram showed a 50 % lesion in the mid-LAD and a totally occluded mid-RCA with good collaterals from the Left coronary arteries. A successful balloon angioplasty with 3 HUGO (Promus element 3 x 28, 3 x 38 and 3 x 8 mm) inserted in the proximal to distal RCA. This patient is admitted post PCI for IV hydration, pain management, access site management in the setting of anticoagulation, serial cardiac biomarker monitoring, telemetry monitoring, evaluation oftheir medical condition, and cardiac rehabilitation. Plan: - admit for overnight monitoring - telemetry, serial ECGs, cycle cardiac biomarkers - DAPT - IVF - continue BB, ACEi, statin - monitor access site - chest pain protocol - cardiac rehab consult - FULL CODE - anticipate discharge in am Interventional Saff H&P: The patient was interviewed and examined, detailed findings are as per Dr. Morales above. Stacy Esparza is a 56 yo woman with a cardiomyopathy, recent admission to [facility] with CHF and inferior ischemiaadmitted post HUGO to proximal and mid RCA (toal occlusion) for observation. 50% stenosis mid LAD also noted. The findings, indications for intervening and plan were reviewed with the patient and her daughter including recommendations for clopidogrel 75 mg po daily for a minimum of 12 months, aspirin indefinitely, cardiac rehab and tobacco cessation.. * Vicky Dickinson PA - 05/06/2012 7:28 AM EST Pre-Cardiac Catheterization 24 hr Update Please see Dr. Almanzar's note dated 05/05/2012 for full details regarding reason for referral for cardiac catheterization. There has been no significant interval change in clinical status since thatvisit. Consent obtained. Labs in chart. Okay. documented in this encounter Procedure Notes * Provider, Scanning - 05/08/2012 11:18 AM ESTAssociated Order(s): SCAN DOC: CARDIAC CATH * Provider, Scanning - 05/08/2012 11:18 AM ESTAssociated Order(s): SCAN DOC: NARCOTICS AND/OR VICE DETECTIVE * Provider, Scanning - 05/06/2012 11:20 AM ESTAssociated Order(s): CARDIAC CATHETERIZATION documented in this encounter Miscellaneous Notes * Miscellaneous - Provider, Scanning - 05/08/2012 11:18 AM EST * Miscellaneous - Provider, Scanning - 05/08/2012 11:18 AM EST * Discharge Summary - Cipriano Morales - 05/06/2012 11:26 AM EST Inpatient Cardiology - Discharge Summary Patient Name: Stacy Esparza Patient Age: 56 y.o. Birthdate: 1955 Admit date: 05/06/2012 Discharge date : 05/07/2012 Attending Physician: Raoul Martin MD Discharge Diagnoses (Hospital Problems) and Secondary Diagnoses (Chronic Problems): CAD Ischemic cardiomyopathy Active Non-Hospital Problems Diagnoses ??? Other primary cardiomyopathies ??? Alcohol abuse, unspecified ??? Hyperpotassemia ??? Cardiogenic shock ??? Unspecified hypothyroidism Operations/Major Procedures: Operations: CARDIAC CATHETERIZATION - Procedure: Coronary Angiography Other Major Procedures: None History of Presentation: A 56 years old female with history of HTN, hyperlipidemia, CHF, hypothyroidism, and smoking was diagnosed with severe cardiomyopathy of unclear etiology. Her primary symptoms were dyspnea on exertion, PND, and orthopnea. A nuclear stress showed a reversible defect in the inferior wall. She was brought to cardiac lab support technician. Her angiogram showed a 50 % lesion in the mid-LAD and a totally occluded mid-RCA with good collaterals from the Left coronary arteries. A successful balloon angioplasty with 3 HUGO (Promus element 3 x 28, 3 x 38 and 3 x 8 mm) inserted in the proximal to distal RCA. This patient is admitted post PCI for IV hydration, pain management, access site management in the setting of anticoagulation, serial cardiac biomarker monitoring, telemetry monitoring, evaluation oftheir medical condition, and cardiac rehabilitation. Hospital Course: Patient admitted following cardiac catheterization for overnight monitoring and observation. The patient did well overnight without significant chest pain or arrhythmias on telemetry. The right femoral access site was evaluated and the femoral pulse was palpable with no evidence of hematoma, bruit,or vascular compromise to the right foot. Cardiac biomarkers and a repeat ECG were reviewed. The patient ambulated with nursing without chest discomfort or exertional dyspnea. The patient met criteria for discharge home in stable condition. Important Studies and Lab Data: Labs: Lab Results Component Value Date WBC 10.0 05/07/2012 No results found for this basename: INR in the last 168 hours Lab Results Component Value Date NA 140 05/07/2012 No results found for this basename: TSH in the last 7068 hours No results found for this basename: HA1C in the last 7068 hours Recent Labs Basename 05/07/12 0334 05/06/12 1130 CK 48 54 TROPONINT <0.03 <0.03 No results found for this basename: CHLPL, HDL, CHOLHDL, TRIG, LDLCHOL, LDLDIRECT Pending Studies and Lab Data: None Discharge Conditions/Prognosis: The patient is stable with no active issue on discharge Discharge to: Home Discharge Medications: Current Discharge Medication List UNREVIEWED medications Dose Details levothyroxine (SYNTHROID) 50 mcg 50 mcg digoxin (LANOXIN) 125 mcg 125 mcg liothyronine (CYTOMEL) 10 mcg 10 mcg lisinopril (PRINIVIL;ZESTRIL) 10 mg 10 mg furosemide (LASIX) 80 mg 80 mg furosemide (LASIX) 40 mg 40 mg metoprolol tartrate (LOPRESSOR) 50 mg 50 mg sertraline (ZOLOFT) 50 mg 50 mg ergocalciferol (ERGOCALCIFEROL) 50,000 Units 50,000 Units riboflavin 100 mg 100 mg aspirin 81 mg 81 mg Coenzyme Q10 200 mg 200 mg Magnesium 84 mg 84 mg OMEGA-3 FATTY ACIDS (FISH OIL CONCENTRATE ORAL) 1,200 mg 1,200 mg ascorbic acid (VITAMIN C) 500 mg 500 mg multivitamin (THERAGRAN) 1 tablet 1 tablet Updated Allergies/ADRs: No Known Allergies Instructions Given to Patient at Discharge: Provider Instructions None General Instructions None Provider Contact Information: Follow-up Recommendations for Providers: Follow up cardiology office in 2-4 weeks Discharge References/Attachments: Discharge References/Attachments None Signed: Cipriano Morales MD DATE: 05/07/2012 * Miscellaneous - Provider, Scanning - 05/06/2012 9:56 AM EST documented in this encounter Plan of Treatment Upcoming Encounters Date Type Department Care Team (Late st Contact Info) Description 10/17/2023 10:30 AM EDT Appointment Non-[place] [address] [place] [address] 10/17/2023 11:40 AM EDT Office Visit Cardiology at [address] [phone] [place] [address] 11/15/2023 10:00 AM EDT Hospital Encounter Non-[place] [address] Arrived 11/21/2023 1:40 PM EDT Office Visit Cardiology at [address] [phone] Lea Hodges MD [facility] [place] [address] Scheduled Orders Name Type Priority Associated Diagnoses Orde r Schedule EKG 12 Lead ECG Routine Other primary cardiomyopathies One Time for 1 Occurrences starting 05/06/2012 until 05/06/2012 documented as of this encounter Procedures Procedure Name Priority Date/Time Associated Diagnosis Comments NARCOTICS AND/OR VICE DETECTIVE SCAN 05/08/2012 11:18 AM EST CARDIAC CATH SCAN 05/08/2012 11: 18 AM EST BMP W/FASTING GLUCOSE Routine 05/07/2012 3:34 AM EST DIFFERENTIAL, AUTOMATED Routine 05/07/2012 3:34 AM EST CARDIAC ENZYMES ([facility]) Routine 05/07/2012 3:34 AM EST CBC (WITH DIFF) Routine 05/07/2012 3:34 AM EST EKG 12-LEAD Routine 05/06/2012 12:01 PM EST Other primary cardiomyopathies CARDIAC ENZYMES ([facility]) STAT 05/06/2012 11:30 AM EST CARDIAC CATHETERIZATION Routine 05/06/2012 10:54 AM EST CARDIAC CATHETERIZATION 05/06/2012 7:50 AM EST CAD documented in this encounter Results * SCAN DOC: NARCOTICS AND/OR VICE DETECTIVE (05/08/2012 11:18 AM EST) Anatomical Region Laterality Modality Other Narrative Transcriptions Provider, Scanning - 05/08/2012 11:18 AM EST Scanning Provider MEDIA MGR SCAN EXT O RDR/RSLT * SCAN DOC: CARDIAC CATH (05/08/2012 11:18 AM EST) Anatomical Region Laterality Modality Other Narrative Transcriptions Provider, Scanning - 05/08/2012 11:18 AM EST Scanning Provider MEDIA MGR SCAN EXT O RDR/RSLT * Differential, Automated (05/07/2012 3:34 AM EST) Neutrophils % 58.2 34.0 - 71.0 % CERNER MILLENNIUM Neutr Abs (ANC) 5.84 1.50 - 6.30 x10(3)/mcL CERNER MILLENNIUM Lymphocytes % 30.0 19.0 - 53.0 % CERNER MILLENNIUM Lymphocytes Abs 3.0 1.0 - 3.6 x10(3)/mcL CERNER MILLENNIUM Monocytes % 8.7 4.0 - 13.0 % CERNER MILLENNIUM Monocyte Abs 0.9 0.2 - 1.0 x10(3)/mcL CERNER MILLENNIUM Eosinophils % 2.3 0.0 - 7.0 % CERNER MILLENNIUM Eosinophils Abs 0.2 0.0 - 0.5 x10(3)/mcL CERNER MILLENNIUM Basophils % 0.4 0.0 - 2.0 % CERNER MILLENNIUM Basophils Abs 0.0 0.0 - 0.2 x10(3)/mcL CERNER MILLENNIUM Immature Gran % 0.40 0.00 - 0.66 % CERNER MILLENNIUM Comment: Immature granulocytes(IG's)percentage and absolute count will include metamyelocytes, myelocytes, and promyelocytes. Blood smears from CBCs yielding IG's will be scanned manually for concordance. If this scan disagrees with the automated IG or if promyelocytes are noted, a manual differential will be performed. [place] Gran Abs 0.04 0.00 - 0.05 x10(3)/mcL CERNER MILLENNIUM Blood specimen (specimen) 05/07/2012 3:34 AM EST 05/07/2012 3:50 AM EST Raoul Martin MD HEMATOLOGY ORDERABLE S [facility] * BMP w/fasting Glucose (05/07/2012 3:34 AM EST) Glucose Fasting 94 65 - 99 mg/dL [facility] MILLENNIUM Comment: ?Fasting* Glucose Interpretive Criteria Normal ?65-99 [...] of Diabetes Mellitus, Position Statement from the [place] [employer]. ??Diabetes Care, Volume 33, Supplement 1, Mar 2009 BUN 18 8 - 18 mg/dL CERNER MILLENNIUM Creatinine 0.75 0.70 - 1.20 mg/dL [facility] MILLENNIUM Comment: Please note that the pediatric reference intervals supplied above were not validated at [facility]. Results from pediatric patients should be interpreted in conjunction to the patient's age, height and muscle mass. Sodium 140 135 - 145 mmol/L CERNER MILLENNIUM Potassium 3.9 3.5 - 5.0 mmol/L CERNER MILLENNIUM Comment: Please note: ??Patients with WBC >100,000 may have falsely elevated Potassium levels. ??For accurate Potassium quantification in these patients send serum separator tube (gold top) for subsequent determinations. ??Contact the Clinical Chemistry Laboratory if there are any questions. Chloride 104 98 - 107 mmol/L CERNER MILLENNIUM CO2 27 22 - 31 mmol/L CERNER MILLENNIUM Anion Gap 9 5 - 15 mmol/L CERNER MILLENNIUM Calcium 8.7 8.5 - 10.5 mg/dL CERNER MILLENNIUM Estimated GFR >60 >=60 CERNER MILLENNIUM Comment: The National Kidney Disease Education Program (NKDEP) has recommended all laboratories report estimated GFR (eGFR) along with plasma creatinine measurements to assist you with recognition of early kidney disease. Caveats: ??Plasma creatinine should be at steady-state (unchanged within the past week). For patients multiply eGFR by 1.2. The MDRD equation was developed using patients between the ages of 18 and 70 years. ?? The MDRD equation has not been validated for patients < 18 years of age and should not be used to assess renal function in the pediatric population. ??The MDRD eGFR equation will also overestimate the true GFR of patients above the age of 70. ??This overestimation is variable but increases with age. At present, NKDEP does NOT recommend using the MDRD equation for drug dosing purposes and pharmacists should continue to use their current dosing methods. In addition, numerical eGFR values greater than 60 ml/min/1.73 square meters should be treated as > 60, and not an exact number due to greater inaccuracies at these higher values. Per NKDEP, they classify normal renal function as any GFR >60ml/min/1.73 square meters; chronic kidney disease when GFR <60, and renal failure when GFR <15. ??This calculation may not be valid for patients with atypical muscle mass (very lean or obese), acute renal failure, and in patients with diabetic kidney disease. References: http://nkdep.nih.gov/resources/NKDEP_Suggestn4Labs_0606_508.pdf http://www.kidney.org/professionals/kls/pdf/faq_gfr.pdf Edmond Arteaga, Carl NA, Baron AK, Param TS, Goldie AD, Taya СЕРГЕЙ. Relative performance of the MDRD and CKD-EPI equations for estimating glomerular filtration rate among patients with varied clinical presentations. Clin J Am Soc Nephrol;6:1963-72. Blood specimen (specimen) 05/07/2012 3:34 AM EST 05/07/2012 3:50 AM EST Narrative Resulting Agency Comment Spec In Lab Raoul Martin MD CHEMISTRY ORDERABLES Performing Organization Address [facility] de Phone Number [facility] * Cardiac Enzymes (05/07/2012 3:34 AM EST) Troponin-T <0.03 <=0.03 ng/mL [facility] Comment: 0.03 ng/mL: Represents the 99th percentile upper reference limit for normals. >0.03 ng/mL: Elevated cardiac troponin T level indicative of myocardial damage. Diagnosis of acute, evolving or recent CA requires a typical rise and gradual fall of cTnT with at least ONE of the following: a) Ischemic symptoms b) Development of pathologic Q waves on the ECG c) ECG changes indicative of eschemia (S-T segment elevation/depression) d) Coronary artery intervention Serial bloods should be obtained for testing on admission, at 6 to 9 hrs and again at 12 to 24 hrs if earlier samples are negative and the clinical index of suspicion is high. Reference: [Myocardial infarction redefined a consensus document of the Joint Society of Cardiology/[place] College [employer] Card[employer] Committee for the redefinition of myocardial infarction. Journal of the [place] College [employer] 2000; 36: 959-969] CK, Total 48 0 - 160 unit/L [facility] Blood specimen (specimen) 05/07/2012 3:34 AM EST 05/07/2012 3:50 AM EST Narrative Resulting Agency Comment Spec In Lab Raoul Martin MD CHEMISTRY ORDERABLES Performing Organization Address [facility] Co de Phone Number [facility] * (ABNORMAL) CBC (with Diff) (05/07/2012 3:34 AM EST) Pathologist [facility] [place] WBC 10.0 4.0 - 10.0 x10(3)/mcL CERNER MILLENNIUM RBC 4.22 3.93 - 5.22 x10(6)/mcL CERNER MILLENNIUM Hemoglobin 12.6 11.2 - 15.7 gm/dL CERNER MILLENNIUM Hematocrit 38.2 34.0 - 45.0 % CERNER MILLENNIUM MCV 90.5 79.0 - 94.0 fL CERNER MILLENNIUM MCH 29.9 26.6 - 32.2 pg CERNER MILLENNIUM MCHC 33.0 32.0 - 36.5 gm/dL CERNER MILLENNIUM Platelets 232 145 - 370 x10(3)/mcL CERNER MILLENNIUM RDWSD 61.4(H) 35.0 - 46.0 fL CERNER MILLENNIUM RDWCV 18.5(H) 10.9 - 14.4 % CERNER MILLENNIUM MPV 9.0 9.0 - 12.0 fL [facility] MILLENNIUM Blood specimen (specimen) 05/07/2012 3:34 AM EST 05/07/2012 3:50 AM EST Narrative Resulting Agency Comment Spec In Lab Raoul Martin MD HEMATOLOGY ORDERABLE S Performing Organization Address [place]/[facility] Co de Phone Number [facility] * EKG 12 Lead (05/06/2012 12:01 PM EST) Ventricular rate 68 BPM MUSE SYSTEM Atrial Rate 68 BPM MUSE SYSTEM P-R Interval 192 ms MUSE SYSTEM QRS Duration 108 ms MUSE SYSTEM Q-T Interval 430 ms MUSE SYSTEM QTC Calculated (Bezet) 457 ms MUSE SYSTEM Calculated P Adams 71 degrees MUSE SYSTEM Calculated R Adams 23 degrees MUSE SYSTEM Calculated T Adams 119 degrees MUSE SYSTEM INTERPRETATION Normal sinus rhythm Possible Left atrial enlargement ST & T wave abnormality, consider anterolateral ischemia Abnormal ECG No previous ECGs available Confirmed by MD Yahir, Lew ([id number]) on 05/06/2012 4:17:48 PM MUSE SYSTEM 05/06/2012 12:0 1 PM EST 05/06/2012 4:17 PM EST Raoul Martin MD ECG ORDERABLES Performing Organization Address [place]/[facility] Co de Phone Number MUSE SYSTEM * Cardiac Enzymes (05/06/2012 11:30 AM EST) Troponin-T <0.03 <=0.03 ng/mL [facility] Comment: 0.03 ng/mL: Represents the 99th percentile upper reference limit for normals. >0.03 ng/mL: Elevated cardiac troponin T level indicative of myocardial damage. Diagnosis of acute, evolving or recent CA requires a typical rise and gradual fall of cTnT with at least ONE of the following: a) Ischemic symptoms b) Development of pathologic Q waves on the ECG c) ECG changes indicative of eschemia (S-T segment elevation/depression) d) Coronary artery intervention Serial bloods should be obtained for testing on admission, at 6 to 9 hrs and again at 12 to 24 hrs if earlier samples are negative and the clinical index of suspicion is high. Reference: [Myocardial infarction redefined a consensus document of the Joint Society of Cardiology/[place] College [employer] Cardiology Committee for the redefinition of myocardial infarction. Journal of the [place] College [employer]iology 2000; 36: 959-969] CK, Total 54 0 - 160 unit/L [facility]URDOCK Blood specimen (specimen) 05/06/2012 11:30 AM EST 05/06/2012 11:53 AM EST Narrative Resulting Agency Comment Spec In Lab Raoul Martin MD CHEMISTRY ORDERABLES [facility] * Cardiac Catheterization (05/06/2012 10:54 AM EST) Anatomical Region Laterality Modality Other Narrative 05/06/2012 1:32 PM EST Procedure Note Provider, Scanning - 05/06/2012 11:20 AM EST Raoul Martin MD CARDIAC CATH ORDERAB LES documented in this encounter Visit Diagnoses Diagnosis Other primary cardiomyopathies documented in this encounter Administered Medications Inactive Administered Medications - up to 3 most recent administrations Medication Order MAR Action Action Date Dose Rate Site ascorbic acid (VITAMIN C) tablet 500 mg 500 mg, Oral, 2 TIMES DAILY, First dose on Sat05/06/12 at 2100, Until Discontinued, Routine Given 05/07/2012 9:00 AM EST 500 mg aspirin EC tablet 81 mg 81 mg, Oral, DAILY, First dose on Sat05/06/12 at 1630, Until Discontinued, Routine Given 05/07/2012 9:00 AM EST 81 mg Given 05/06/2012 4:30 PM EST 81 mg clopidogrel (PLAVIX) tablet 75 mg 75 mg, Oral, DAILY, First dose on Sat05/07/12 at 0900, Until Discontinued, Routine Given 05/07/2012 9:00 AM EST 75 mg diaZEPam (VALIUM) tablet 5 mg 5 mg, Oral, ONCE, 1 dose, On Sat05/06/12 at 0745, Cath (Day of Procedure), Routine Given 05/06/2012 7:44 AM EST 5 mg digoxin (LANOXIN) tablet 125 mcg 125 mcg, Oral, DAILY, First dose on Sat05/07/12 at 0900, Until Discontinued, Routine Given 05/07/2012 9:00 AM EST 125 mcg diphenhydrAMINE (BENADRYL) capsule 25 mg 25 mg, Oral, ONCE, 1 dose, On Sat05/06/12 at 0745, Cath (Day of Procedure), Routine Given 05/06/2012 7:44 AM EST 25 mg furosemide (LASIX) tablet 40 mg 40 mg, Oral, EVERY EVENING, First dose on Sat05/06/12 at 1700, Until Discontinued, Routine Given 05/06/2012 5:00 PM EST 40 mg furosemide (LASIX) tablet 80 mg 80 mg, Oral, EVERY MORNING, First dose on Sat05/07/12 at 0700, Until Discontinued, Routine Given 05/07/2012 7:00 AM EST 80 mg levothyroxine (SYNTHROID) tablet 50 mcg 50 mcg, Oral, EVERY MORNING, First dose on Sat05/07/12 at 0600, Until Discontinued, Routine Given 05/07/2012 6:00 AM EST 50 mcg liothyronine (CYTOMEL) tablet 10 mcg 10 mcg, Oral, DAILY, First dose on Sat05/07/12 at 0900, Until Discontinued, Routine Given 05/07/2012 9:00 AM EST 10 mcg lisinopril (PRINIVIL;ZESTRIL) tablet 10 mg 10 mg, Oral, DAILY, First dose on Sat05/07/12 at 0900, Until Discontinued, Routine Given 05/07/2012 9:00 AM EST 10 mg magnesium oxide (MAG-OX) tablet 200 mg 200 mg, Oral, DAILY, First dose on Sat05/06/12 at 1630, Until Discontinued, Therapeutic interchange for home magnesium, Routine Given 05/07/2012 9:00 AM EST 200 mg Given 05/06/2012 4:30 PM EST 200 mg metoprolol tartrate (LOPRESSOR) tablet 50 mg 50 mg, Oral, 2 TIMES DAILY, First dose on Sat05/06/12 at 2100, Until Discontinued, Routine Given 05/07/2012 9:00 AM EST 50 mg multivitamin (THERAGRAN) tablet 1 tablet 1 tablet, Oral, DAILY, First dose on Sat05/06/12 at 1630, Until Discontinued Given 05/07/2012 9:00 AM EST 1 tablet Given 05/06/2012 4:30 PM EST 1 tablet riboflavin tablet 100 mg 100 mg, Oral, DAILY, First dose on Sat05/06/12 at 1630, Until Discontinued, Routine Given 05/07/2012 9:00 AM EST 100 mg Given 05/06/2012 4:30 PM EST 100 mg sertraline (ZOLOFT) tablet 50 mg 50 mg, Oral, DAILY, First dose on Sat05/07/12 at 0900, Until Discontinued, Routine Given 05/07/2012 9:00 AM EST 50 mg sodium chloride 0.9 % flush 5 mL 5 mL, Intravenous, EVERY 12 HOURS, First dose on Sat05/06/12 at 0745, Until Discontinued, Cath (Day of Procedure) Given by Other 05/06/2012 7:45 AM EST 5 mLs sodium chloride 0.9% infusion 200 mL/hr, Intravenous, CONTINUOUS, Starting on Sat05/06/12 at 0745, Until Sat05/06/12 at 1340, Cath (Day of Procedure) New Bag 05/06/2012 7:34 AM EST 200 mL/hr 200 mL/hr sodium chloride 0.9% infusion 75 mL/hr, Intravenous, CONTINUOUS, Starting on Sat05/06/12 at 1145, Until Sat05/06/12 at 1744 New Bag 05/06/2012 12:05 PM EST 75 mL/hr 75 mL/hr documented in this encounter Active and Recently Administered Medications Times are shown in EST. Scheduled Medication Order 05/05/2012 05/06/2012 05/07/2012 ascorbic acid (VITAMIN C) tablet 500 mg (CANCELED) 500 mg, Oral, 2 TIMES DAILY, First dose on Sat05/06/12 at 2100, Until Discontinued, Routine 2100 (Due) 0900 (Given - Provider: Oscar Maynard RN) aspirin EC tablet 81 mg (CANCELED) 81 mg, Oral, DAILY, First dose on Sat05/06/12 at 1630, Until Discontinued, Routine 1630 (Given - Provider: Ida Fleming RN) 0900 (Given - Provider: Oscar Maynard RN) clopidogrel (PLAVIX) tablet 75 mg 75 mg, Oral, DAILY, First dose on Sat05/07/12 at 0900, Until Discontinued, Routine 0900 (Given - Provid er: Oscar Maynard RN) diaZEPam (VALIUM) tablet 5 mg (COMPLETED) 5 mg, Oral, ONCE, 1 dose, On Sat05/06/12 at 0745, Cath (Day of Procedure), Routine 0744 (Given - Provider: Gypsy Day RN) digoxin (LANOXIN) tablet 125 mcg (CANCELED) 125 mcg, Oral, DAILY, First dose on Sat05/07/12 at 0900, Until Discontinued, Routine 0900 (Given - Provid er: Oscar Maynard RN) diphenhydrAMINE (BENADRYL) capsule 25 mg (COMPLETED) 25 mg, Oral, ONCE, 1 dose, On Sat05/06/12 at 0745, Cath (Day of Procedure), Routine 0744 (Given - Provider: Gypsy Day RN) furosemide (LASIX) tablet 40 mg (CANCELED) 40 mg, Oral, EVERY EVENING, First dose on Sat05/06/12 at 1700, Until Discontinued, Routine 1700 (Given - Provider: Ida Fleming RN) furosemide (LASIX) tablet 80 mg (CANCELED) 80 mg, Oral, EVERY MORNING, First dose on Sat05/07/12 at 0700, Until Discontinued, Routine 0700 (Given - Provid er: Marnie Christina RN) levothyroxine (SYNTHROID) tablet 50 mcg (CANCELED) 50 mcg, Oral, EVERY MORNING, First dose on Sat05/07/12 at 0600, Until Discontinued, Routine 0600 (Given - Provid er: Marnie Christina RN) liothyronine (CYTOMEL) tablet 10 mcg (CANCELED) 10 mcg, Oral, DAILY, First dose on Sat05/07/12 at 0900, Until Discontinued, Routine 0900 (Given - Provid er: Oscar Maynard RN) lisinopril (PRINIVIL;ZESTRIL) tablet 10 mg (CANCELED) 10 mg, Oral, DAILY, First dose on Sat05/07/12 at 0900, Until Discontinued, Routine 0900 (Given - Provid er: Oscar Maynard RN) magnesium oxide (MAG-OX) tablet 200 mg (CANCELED) 200 mg, Oral, DAILY, First dose on Sat05/06/12 at 1630, Until Discontinued, Therapeutic interchange for home magnesium, Routine 1630 (Given - Provider: Ida Fleming RN) 0900 (Given - Provider: Oscar Maynard RN) metoprolol tartrate (LOPRESSOR) tablet 50 mg (CANCELED) 50 mg, Oral, 2 TIMES DAILY, First dose on Sat05/06/12 at 2100, Until Discontinued, Routine 2100 (Due) 0900 (Given - Provider: Oscar Maynard RN) multivitamin (THERAGRAN) tablet 1 tablet (CANCELED) 1 tablet, Oral, DAILY, First dose on Sat05/06/12 at 1630, Until Discontinued 1630 (Given - Provider: Ida Fleming RN) 0900 (Given - Provider: Oscar Maynard RN) riboflavin tablet 100 mg (CANCELED) 100 mg, Oral, DAILY, First dose on Sat05/06/12 at 1630, Until Discontinued, Routine 1630 (Given - Provider: Ida Fleming RN) 0900 (Given - Provider: Oscar Maynard RN) sertraline (ZOLOFT) tablet 50 mg (CANCELED) 50 mg, Oral, DAILY, First dose on Sat05/07/12 at 0900, Until Discontinued, Routine 0900 (Given - Provid er: Oscar Maynard RN) sodium chloride 0.9 % flush 5 mL (CANCELED) 5 mL, Intravenous, EVERY 12 HOURS, First dose on Sat05/06/12 at 0745, Until Discontinued, Cath (Day of Procedure) 0745 (Given by Other - Provider: Ida Fleming RN) Continuous Medication Order 05/05/2012 05/06/2012 05/07/2012 sodium chloride 0.9% infusion (CANCELED) 200 mL/hr, Intravenous, CONTINUOUS, Starting on Sat05/06/12 at 0745, Until Sat05/06/12 at 1340, Cath (Day of Procedure) 0734 (New Bag - Provider: Gypsy Day RN) sodium chloride 0.9% infusion () 75 mL/hr, Intravenous, CONTINUOUS, Starting on Sat05/06/12 at 1145, Until Sat05/06/12 at 1744 1205 (New Bag - Provider: Chelsea Holland RN) PRN Medication Order 05/05/2012 05/06/2012 05/07/2012 bivalirudin (ANGIOMAX) 250 mg in sodium chloride 0.9% 50 mL infusion (SOCIAL DIRECTOR) (CANCELED) CONTINUOUS PRN, Starting on Sat05/06/12 at 0914, Until Sat05/06/12 at 1053, Cath (Intra-Procedure), Routine 0914 (New Bag - Provider: Milagros Yip RN)1045 (Stopped - Provider: Marisol Mitchell RN) bivalirudin (ANGIOMAX) injection (CANCELED) ONCE PRN, Starting on Sat05/06/12 at 0910, Until Sat05/06/12 at 1135, Intra-Operative (Intra-Procedure), Routine 0910 (Given - Provider: Alcides Yip RN) clopidogrel (PLAVIX) tablet (CANCELED) ONCE PRN, Starting on Sat05/06/12 at 0904, Until Sat05/06/12 at 1135, Intra-Operative (Intra-Procedure), Routine 0904 (Given - Provider: Raj Bell RN) iohexol (OMNIPAQUE) 350 mg iodine/mL injection (CANCELED) ONCE PRN, Starting on Sat05/06/12 at 1051, Until Sat05/06/12 at 1053, Per Protocol, Cath (Intra-Procedure), Routine 1051 (Given - Provider: Blessing Martin MD) nitroGLYcerin (NITROSTAT) SL tablet 0.4 mg 0.4 mg, Sublingual, DAILY PRN, Starting on Sat05/06/12 at 1115, Until Sat05/07/12 at 1243, Chest pain, May repeat every 5 minutes for a total of three doses., Routine nitroGLYCerin 100 mcg/mL intracoronary dilution (CANCELED) ONCE PRN, Starting on Sat05/06/12 at 1012, Until Sat05/06/12 at 1053, Cath (Intra-Procedure), Routine 1012 (Given - Provider: Blessing Martin MD) sodium chloride 0.9% infusion (CANCELED) CONTINUOUS PRN, Starting on Sat05/06/12 at 0948, Until Sat05/06/12 at 1053, Cath (Intra-Procedure) 0948 (New Bag - Provider: Milagros Yip RN)1051 (Rate/Dose Change - Provider: Alcides Yip RN) documented in this encounter
--- OUTSIDE RECORDS SUMMARY | 2023-10-16 01:26 | XMS_ITS | Encounter Summary ---
Author Organization [facility] [place] [address] Care Team Providers Care Unit Aide Tech Name Role Phone Unavailable Primary Care Provider Unavailabl e Encounter Details Date Type Department Care Team (Late st Contact Info) Description 06/19/2012 9:40 AM EDT Office Visit Cardiology at [address] [phone] Raoul Martin MD [facility] [place] [address] CAD S/P percutaneous coronary angioplasty (Primary Dx) Discharge Disposition: Home Social History Tobacco Use [...] Sign Reading Time Taken Comments Blood Pressure 118/58 06/19/2012 9:57 AM EDT Pulse 84 06/19/2012 9:57 AM EDT Temperature - - Respiratory Rate - - Oxygen Saturation 95% 06/19/2012 9:57 AM EDT Inhaled Oxygen Concentration - - Weight 67.1 kg (148 lb) 06/19/2012 9:57 AM EDT Height 161.3 cm (5' 3.5) 06/19/2012 9:57 AM EDT Body Mass Index 25.81 06/19/2012 9:57 AM EDT documented in this encounter Progress Notes * Raoul Martin MD - 06/19/2012 10:19 AM EDT History: 56 y.o. female with severe dilated cardiomyopathy of unknown etiology followed by Dr. Doherty presenting for routine follow-up after PCI with 3 HUGO to 100% RCA . She is an active participant in cardiac rehab at [facility] and is doing very well. She exercises on treadmill, recumbent bike and arm ergometer for 60 minutes three times/week. These activities are well tolerated without chest pain or unusual SOB. Her work level and functional capacity have gradually increased. She saw Dr. Almanzar on 06/03/09 with plans is to repeat an echo at 90 days post PCI to see if she might benefit from ICD. Metoprolol succinate was decreased from 100 to 50 mg/day because of fatigue. She is not smoking and is free of alcohol. Interval ROS: She denies PND, orthopnea, persistent edema, palpitations, presyncope or syncope. Current Outpatient Rx Name Route Sig Dispense Refill ??? SIMVASTATIN 20 MG ORAL TAB Oral Take 20 mg by mouth nightly. ??? CLOPIDOGREL 75 MG ORAL TAB Oral Take 1 tablet by mouth daily. 30 tablet 11 ??? NITROGLYCERIN 0.4 [address] SL SUBL Sublingual Place 1 tablet under the tongue daily as needed for Chest pain. 90 tablet 3 ??? LEVOTHYROXINE 50 MCG ORAL TAB Oral Take 50 mcg by mouth daily. ??? DIGOXIN 125 MCG ORAL TAB Oral Take 125 mcg by mouth daily. ??? LIOTHYRONINE 5 MCG ORAL TAB Oral Take 10 mcg by mouth daily. ??? LISINOPRIL 10 MG ORAL TAB Oral Take 10 mg by mouth daily. ??? FUROSEMIDE 80 MG ORAL TAB Oral Take 80 mg by mouth every morning. ??? FUROSEMIDE 40 MG ORAL TAB Oral Take 40 mg by mouth every evening. ??? METOPROLOL TARTRATE 50 MG ORAL TAB Oral Take 50 mg by mouth daily. ??? SERTRALINE 25 MG ORAL TAB Oral Take 50 mg by mouth daily. ??? ERGOCALCIFEROL (VITAMIN D2) 55216 UNITS ORAL CAP Oral Take 50,000 Units by mouth once a week. Takes on saturday ??? RIBOFLAVIN 100 MG ORAL TAB Oral Take 100 mg by mouth daily. ??? ASPIRIN 81 MG ORAL TBEC Oral Take 81 mg by mouth daily. ??? COENZYME Q10 200 MG ORAL CAP Oral Take 200 mg by mouth daily. ??? MAGNESIUM 84 MG ORAL TBSR Oral Take 84 mg by mouth daily. ??? FISH OIL CONCENTRATE ORAL Oral Take 1,200 mg by mouth 2 times daily. ??? ASCORBIC ACID 500 MG ORAL TAB Oral Take 500 mg by mouth 2 times daily. ??? THERAPEUTIC MULTIVITAMIN ORAL TAB Oral Take 1 tablet by mouth daily. Physical Exam: Blood pressure 118/58, pulse 84, height 161.3 cm (5' 3.5), weight 67.132 kg (148 lb), SpO2 95.00%. Friendly, well nourished, no distress accompanied by daughter. HEENT: JVP is normal. Carotid upstrokes are normal without bruits. Lungs: Clear to percusion and auscultation. Cor: Regular rhythm. S1 and S2 physiologic. No murmur, rub or gallop noted. Abd: Soft, nontender, no bruits. Ext: Pulses are preserved, no femoral bruits, cath site well healed, no edema, cyanosis or clubbing. Neuro: Grossly normal. Assessment: Stable post PCI with multiple HUGO to 100% RCA Plan: 1. A review of the active management, medications, test results and working diagnosis was conductedwith the patient and her daughter. Questions were answered. 2. Plan is to continue current medical therapy including clopidogrel 75 mg daily for a minimum of 12 months, aspirin indefinitely, ACEi, statin, long acting beta blockerand cardiac rehab. 3. They are aware of the importance of continued risk factor modification. 4. The following labs or other testing advised: f/u routine labs TTE with primary safe expert and PCP. 5. Scheduled cardiology follow-up here will be on a prn basis. documented in this encounter Plan of Treatment Upcoming Encounters Date Type Department Care Team (Late st Contact Info) Description 10/17/2023 10:30 AM EDT Appointment Non-[place] [phone] Lea Jay [place] [address] 10/17/2023 11:40 AM EDT Office Visit Cardiology at [address] [phone] [place] [address] 11/15/2023 10:00 AM EDT Hospital Encounter Non-Invasive [place] [phone] Arrived 11/21/2023 1:40 PM EDT Office Visit Cardiology at [address] [phone] Lea Hodges MD [facility] [place] [address] documented as of this encounter Visit Diagnoses Diagnosis CAD S/P percutaneous coronary angioplasty- Primary Coronary atherosclerosis of [place] coronary artery documented in this encounter
--- OUTSIDE RECORDS SUMMARY | 2023-10-16 01:27 | XMS_ITS | Encounter Summary ---
Author Organization [facility] Address [address] [place] [address] Care Team Providers Care Mold Stacker Name Role Phone Angela Cotto MD Primary Care Provider [phone] Encounter Details Date Type Department Care Team (Late st Contact Info) Description 05/03/2022 Results Only [facility] Laboratory Services - [facility] [address] [place] [address] lOeg Trinidad MD [address] [place] [phone] Social History Tobacco Use Types Packs/Day Years Used Date Smoking Tobacco: Every Day Alcohol Use Standard Drinks/Week Comments Not Currently 0 (1 standard drink = 0.6 oz pur e alcohol) Interpersonal Safety Answer Date Record ed Physically Hurt Never 10/25/2019 Verbally Threaten Not on file 10/25/2019 Sex and Gender Information Value Date Recorded Sex Assigned at Not on file Gender Identity Not on file Sexual Orientation Not on file documented as of this encounter Functional Status Functional Status Response Date of Assess ment Because of a physical, menta l, or emotional condition, does this person have difficulty doing errands alone such as visiting a doctor's office or shopping? Yes 02/15/2021 Cognitive Status Response Date of Assessm ent Because of a physical, menta l, or emotional condition, does this person have serious difficulty concentrating, remembering, or making decisions? No 02/15/2021 documented as of this encounter Plan of Treatment Not on file documented as of this encounter Procedures Procedure Name Priority Date/Time Associated Diagnosis Comments VITAMIN D (25,OH) Routine 05/03/2022 6:58 EST documented in this encounter Results * VITAMIN D (25,OH) (05/03/2022 6:58 EST) Vitamin D 49 30 - 100 ng/ml [facility] 05/03/2022 6:58 EST Oleg Trinidad MD CHEMISTRY & BLOOD GA S ORDERABLES Performing Organization Address City/State/[facility] Co de Phone Number [facility] [address] [place] [address] documented in this encounter Visit Diagnoses Not on filedocumented in this encounter Care Teams Mold Stacker Relationship Specialty Start Date End Date Angela Cotto MD [address] [place] [phone] PCP - General Family Medicine - Primary Care 10/26/20 documented as of this encounter
--- OUTSIDE RECORDS SUMMARY | 2023-10-16 01:27 | XMS_ITS | Encounter Summary ---
Author Organization [facility] Address [address] [place] [address] Care Team Providers Care Auxiliary Engineer Name Role Phone Angela Cotto MD Primary Care Provider [phone] Encounter Details Date Type Department Care Team (Latest Contact Info) Description 02/12/2023 [facility] [address] [place] [address] Oleg Trinidad MD [address] [place] [phone] Primary cardiomyopathy (HCC-CMS) (Primary Dx); Atherosclerosis of [place] coronary artery with angina pectoris, unspecified whether [place] or transplanted heart (HCC-CMS); Heart failure, unspecified HF chronicity, unspecified heart failure type (HCC-CMS); Elevated triglycerides with high cholesterol Social History Tobacco Use Types Packs/Day Years [...] on file documented as of this encounter Results * LDL, DIRECT (02/12/2023 8:50 EST) LDL, Direct 104 <160 mg/dL 02/13/2023 14:11 EST [facility] Comment: LDL, Direct Reference Ranges: Optimal: Less than 100 mg/dL Above Optimal: 100-129 mg/dL Borderline High: 130-159 mg/dL High: 160-189 mg/dL Very High: Greater than or equal to 190 mg/dL Blood VENOUS BLOOD / Unknown Venipuncture / Unknown 02/12/2023 8:50 EST 02/12/2023 17:52 EST Oleg Trinidad MD CHEMISTRY & BLOOD GA S ORDERABLES Performing Organization Address City/[facility] Co de Phone Number [facility] [address] [place] [address] * NT PRO BNP (02/12/2023 8:50 EST) NT-pro BNP 151 <221 pg/mL 02/12/2023 18:16 EST [facility] Comment: In the acute setting NT-proBNP values <300 pg/mL have a 98% NPV for excluding acute heart failure. In outpatient populations, NT-proBNP values <125 have a 99% NPV for excluding heart failure. Blood VENOUS BLOOD / Unknown Venipuncture / Unknown 02/12/2023 8:50 EST 02/12/2023 17:52 EST Oleg Trinidad MD CHEMISTRY & BLOOD GA S ORDERABLES Performing Organization Address City/[facility] Co de Phone Number [facility] [address] [place] [address] documented in this encounter Visit Diagnoses Diagnosis Primary cardiomyopathy (HCC-CMS)- Primary Other primary cardiomyopathies Atherosclerosis of [place] coronary artery with angina pectoris, unspecified whether [place] or transplanted heart (HCC-CMS) Heart failure, unspecified HF chronicity, unspecified heart failure type (HCC-CMS) Elevated triglycerides with high cholesterol Mixed hyperlipidemia documented in this encounter Care Teams Auxiliary Engineer Relationship Specialty Start Date End Date Angela Cotto MD [address] [place] [phone] PCP - General Family Medicine - Primary Care 10/26/20 documented as of this encounter
--- OUTSIDE RECORDS SUMMARY | 2023-10-16 01:27 | XMS_ITS | Encounter Summary ---
Author Organization [facility] Address [address] [place] [address] Care Team Providers Care Programming Instructor Name Role Phone Angela Cotto MD Primary Care Provider [phone] Encounter Details Date Type Department Care Team (Latest Contact Info) Description 02/12/2023 17:51 EST - 02/12/2023 23:59 EST Hospital Encounter [facility] - Main [place] [address] [place] [phone] Car Changer, [facility] Discharge Disposition: Home or Self Care Social History Tobacco Use Types Packs/Day Years [...] No 02/15/2021 documented as of this encounter Medications at Time of Discharge Medication Sig Dispensed Refills Start Date End Date acetaminophen (TYLENOL) 325 mg tablet 1 tablet orally as needed allopurinoL (ZYLOPRIM) 100 mg tablet Take 100 mg by mouth daily. aspirin 81 mg EC tablet 1 tab(s) orally once a day atorvastatin (LIPITOR) 80 mg tablet Take 80 mg by mouth daily. cholecalciferol (VITAMIN D3) 1,250 mcg (50,000 unit) capsule 1 cap(s) orally month Coenzyme Q10 100 mg capsule 1 cap(s) orally once a day colchicine (COLCRYS) 0.6 mg tablet Take 0.6 mg by mouth daily. cyclobenzaprine (FLEXERIL) 10 mg tablet Take 5 mg by mouth 3 times daily as needed for Muscle Spasms. EPINEPHrine (EPIPEN) 0.3 mg/0.3 mL injectionIndications:glen ent at risk of anaphylaxis Inject 0.3 mg into the muscle once as needed for Other (for allergic reaction). ergocalciferol (DRISDOL; VITAMIN D2) 1,250 mcg (50,000 unit) capsule Take 50,000 Units by mouth once a week. furosemide (LASIX) 80 mg tablet 1 tab am,1/2 tab pm orally twice daily levothyroxine sodium (LEVOTHYROXINE ORAL) Take by mouth. Unsure dosage liothyronine (CYTOMEL) 25 mcg tablet Take 12.5 mcg by mouth daily. metFORMIN (GLUCOPHAGE) 1,000 mg tablet Take 1,000 mg by mouth 2 times daily with breakfast and dinner. MULTIVITAMIN ORAL Take 1 Tablet by mouth daily. naproxen (NAPROSYN) 500 mg tablet Take 500 mg by mouth 2 times daily with breakfast and dinner. nicotine (NICODERM CQ) 21 mg/[address] 1 Patch onto the skin every 24 hours. nitroglycerin (NITROSTAT) 0.[address] 0.4 mg under the tongue every 5 minutes as needed for Chest Pain. documented as of this encounter Discharge Disposition Disposition Code Departure Means Destination Home or Self Care documented in this encounter Plan of Treatment Not on file documented as of this encounter Visit Diagnoses Not on filedocumented in this encounter Care Teams Programming Instructor Relationship Specialty Start Date End Date Angela Cotto MD [address] [place] [phone] PCP - General Family Medicine - Primary Care 10/26/20 documented as of this encounter
--- OUTSIDE RECORDS SUMMARY | 2023-10-16 01:27 | XMS_ITS | Encounter Summary ---
Author Organization [facility] Address [address] [place] [address] Care Team Providers Care Diplomatic Officer Name Role Phone Angela Cotto MD Primary Care Provider [phone] Reason for Visit * Vascular Lab (Routine) - Authorization Not Required Specialty Diagnoses / Procedures Referred By Shyam agarwal Referred To Contact Diagnoses Abnormal result of other cardiovascular function study Unequal blood pressure in upper extremities Procedures US UPPER ARTERIAL DUPLEX Oleg Trinidad MD [address] [place] [phone] [facility] Vascular Lab Referral ID Status Reason Start Date Expiration Date Visits Requested Visits Authorized [id number] Authorization Not Required 12/10/2022 1 1 Encounter Details Date Type Department Care Team (Latest Contact Info) Description 01/18/2023 11:30 EDT Ancillary Procedure [facility] Vascular Surgery - Main [place] [address] [place], [place] [address] Abnormal result of other cardiovascular function study; Unequal blood pressure in upper extremities Social History Tobacco Use Types Packs/Day [...] Procedure Name Priority Date/Time Associated Diagnosis Comments US UPPER ARTERIAL DUPLEX Routine 01/18/2023 12:02 EDT Abnormal result of other cardiovascular function study Unequal blood pressure in upper extremities documented in this encounter Results * US UPPER ARTERIAL DUPLEX RIGHT WITH PHYSIOLOGIC TEST (01/18/2023 12:02 EDT) UPPER ARTERIAL RIGHT BRACHIAL DIST PSV 37 cm/s [facility] UPPER ARTERIAL RIGHT BRACHIAL PROX PSV 18 cm/s [facility] Right Upper Arm Brachial mid sys PSV 27 cm/s [facility] Upper arterial right arm axillary sys max 0 cm/s [facility] Right subclavian sys 73 cm/s [facility] UPPER ARTERIAL RIGHT RADIAL PROX PSV 15 cm/s [facility] Right Upper Arm Radial mid sys PSV 20 cm/s [facility] UPPER ARTERIAL RIGHT RADIAL DIST PSV 18 cm/s [facility] UPPER ARTERIAL RIGHT ULNAR PROX PSV 10 cm/s [facility] Right Upper Arm Ulnar mid sys PSV 16 cm/s [facility] UPPER ARTERIAL RIGHT ULNAR DISTAL PSV 23 cm/s [facility] Right Brachial Blood Pressure 88 mmHg [facility] Left Brachial Blood Pressure 140 mmHg [facility] Right Radial Blood Pressure 88 mmHg [facility] Right Ulnar Blood Pressure 101 mmHg [facility] RIGHT WRIST / BRACHIAL INDEX 0.72 [facility] Right Digit 1 Blood Pressure 97 mmHg [facility] R Digit 1/Brach Index 0.69 [facility] Left Radial Blood Pressure 143 mmHg [facility] Left Ulnar Blood Pressure 153 mmHg [facility] LEFT WRIST / BRACHIAL INDEX 1.09 [facility] Left Digit 1 Blood Pressure 143 mmHg [facility] L digit 1/brach index 1.02 [facility] Anatomical Region Laterality Modality Vascular Ultrasound Narrative 01/23/2023 17:07 EDT ?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 ?Segmental pressures and waveforms demonstrate evidence of moderate arterial insufficiency within the right upper extremity and no evidence of arterial insufficiency within the left lower extremity. 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 Right Upper Digits 1st digit: Moderately diminished Left Upper Digits 1st digit: Normal Right Upper Arterial Physiologic Right wrist: moderately diminished Right radial Doppler: monophasic Right ulnar Doppler: monophasic Left Upper Arterial Physiologic Left wrist: normal Left radial Doppler: triphasic Left ulnar Doppler: triphasic Arterial HPI and Indications Right brachial blood pressure lower than left. Arterial Past Medical History CAD, Hyperlipidemia and Tobacco use. Oleg Trinidad MD IMG VASCULAR PHILOMENA [facility] documented in this encounter Visit Diagnoses Diagnosis Abnormal result of other cardiovascular function study Unequal blood pressure in upper extremities documented in this encounter Care Teams Diplomatic Officer Relationship Specialty Start Date End Date Angela Cotto MD [address] [place] [phone] PCP - General Family Medicine - Primary Care 10/26/20 documented as of this encounter
--- OUTSIDE RECORDS SUMMARY | 2023-10-16 01:27 | XMS_ITS | Encounter Summary ---
Author Organization [facility] Address [address] [place] [address] Care Team Providers Care College Director Name Role Phone Angela Cotto MD Primary Care Provider [phone] Encounter Details Date Type Department Care Team (Latest Contact Info) Description 08/29/2023 12:56 EDT - 08/29/2023 23:59 EDT [facility] [place] [address] [place] [phone] Hog Operator, [facility] Discharge Disposition: Home or Self Care [...] on filedocumented in this encounter Care Teams College Director Relationship Specialty Start Date End Date Angela Cotto MD [address] [place] [phone] PCP - General Family Medicine - Primary Care 10/26/20 documented as of this encounter
--- OUTSIDE RECORDS SUMMARY | 2023-10-16 01:27 | XMS_ITS | Encounter Summary ---
Author Organization [facility] Address [address] [place] [address] Care Team Providers Care Regional Commercial Sales Manager Name Role Phone Angela Cotto MD Primary Care Provider [phone] Encounter Details Date Type Department Care Team (Late st Contact Info) Description 02/12/2023 Results Only [facility] Laboratory Services - [facility] [address] [place] [address] Oleg Trinidad MD [address] [place] [phone] Social History Tobacco Use Types Packs/Day [...] Procedure Name Priority Date/Time Associated Diagnosis Comments LIPID PROFILE (INCLUDES CHOLESTEROL, TRIGLYCERIDES, HDL, LDL) Routine 02/12/2023 12:15 EST documented in this encounter Results * (ABNORMAL) LIPID PROFILE (INCLUDES CHOLESTEROL, TRIGLYCERIDES, HDL, LDL) (02/12/2023 12:15 EST) Pathologist [facility] Cholesterol 219.00(H) 0.00 - 200.00 mg/dL [facility] dHDL 43.00 40.00 - 60.00 mg/dL [facility] Triglycerides 438.00(H) 0.00 - 150.00 mg/dL [facility] Comment:TRIGLYCERIDES >400 m g/dL, LDL CALCULATION NOT VALID 02/12/2023 12:1 5 EST Oleg Trinidad MD CHEMISTRY & BLOOD GA S ORDERABLES [facility] [address] [place] [address] documented in this encounter Visit Diagnoses Not on filedocumented in this encounter Care Teams Regional Commercial Sales Manager Relationship Specialty Start Date End Date Angela Cotto MD [address] [place] [phone] PCP - General Family Medicine - Primary Care 10/26/20 documented as of this encounter
--- OUTSIDE RECORDS SUMMARY | 2023-10-16 01:27 | XMS_ITS | Encounter Summary ---
Author Organization [facility] Address [address] [place] [address] Care Team Providers Care Global Marketing Coordinator Name Role Phone Angela Cotto MD Primary Care Provider [phone] Encounter Details Date Type Department Care Team (Late st Contact Info) Description 08/29/2023 Orders Only [facility] [address] [place] [address] Oleg Trinidad MD [address] [place] [address] Coronary arteriosclerosis; Heart failure, unspecified HF chronicity, unspecified heart failure type (HCC-CMS); Gout, unspecified cause, unspecified chronicity, unspecified site; Secondary hypertension; Hypothyroidism, unspecified type; Vitamin D deficiency disease Social History Tobacco Use Types Packs/Day Years [...] Procedure Name Priority Date/Time Associated Diagnosis Comments LDL, DIRECT Today 08/29/2023 9:10 EDT Coronary arteriosclerosis VITAMIN D (25,[place]) Routine 08/29/2023 9:1 0 EDT Vitamin D deficiency disease URIC ACID Routine 08/29/2023 9:10 EDT Gout, unspecified cause, unspecified chronicity, unspecified site T3 FREE Routine 08/29/2023 9:10 EDT Hypothyroidism, unspecified type TSH Routine 08/29/2023 9:10 EDT Hypothyroidism, unspecified type T4 FREE Routine 08/29/2023 9:10 EDT Hypothyroidism, unspecified type NT PRO BNP Routine 08/29/2023 9:10 EDT Heart failure, unspecified HF chronicity, unspecified heart failure type ([facility]) MAGNESIUM Routine 08/29/2023 9:10 EDT Coronary arteriosclerosis LIPID PROFILE (INCLUDES CHOLESTEROL, TRIGLYCERIDES, HDL, LDL) Routine 08/29/2023 9:10 EDT Coronary arteriosclerosis COMPREHENSIVE METABOLIC PANEL (CMP) Routine 08/29/2023 9:10 EDT Secondary hypertension documented in this encounter Results * LDL, DIRECT (08/29/2023 9:10 EDT) LDL, Direct 33 <160 mg/dL 08/29/2023 13:56 EDT [facility] Comment: LDL, Direct Reference Ranges: Optimal: Less than 100 mg/dL Above Optimal: 100-129 mg/dL Borderline High: 130-159 mg/dL High: 160-189 mg/dL Very High: Greater than or equal to 190 mg/dL Blood VENOUS BLOOD / Unknown Venipuncture / Unknown 08/29/2023 9:10 EDT 08/29/2023 12:58 EDT Oleg Trinidad MD CHEMISTRY & BLOOD GA S ORDERABLES Performing Organization Address City/[facility]/ZIP Co de Phone Number [facility] [address] [place] [address] * VITAMIN D (25,OH) (08/29/2023 9:10 EDT) 25OH Vitamin D Tot 64 30 - 100 ng/mL 08/29/2023 13:51 EDT [facility] Blood VENOUS BLOOD / Unknown Venipuncture / Unknown 08/29/2023 9:10 EDT 08/29/2023 12:58 EDT Oleg Trinidad MD CHEMISTRY & BLOOD GA S ORDERABLES Performing Organization Address [facility]/ZIP Co de Phone Number [facility] [address] [place] [address] * TSH (08/29/2023 9:10 EDT) Pathologist [facility] TSH 1.72 0.47 - 4.68 mIU/L 08/29/2023 14:05 EDT [facility] Blood VENOUS BLOOD / Unknown Venipuncture / Unknown 08/29/2023 9:10 EDT 08/29/2023 12:58 EDT Narrative [facility] - 08/29/2023 14:05 EDT The results of this assay can be falsely lowered due to the consumption of Biotin. Oleg Trinidad MD CHEMISTRY & BLOOD GA S ORDERABLES Performing Organization Address City/[facility]/ZIP Co de Phone Number [facility] [address] [place], [place] [id number] * T4 FREE (08/29/2023 9:10 EDT) T4, Free 1.3 0.8 - 2.2 ng/dL 08/29/2023 13:51 EDT [facility] Blood VENOUS BLOOD / Unknown Venipuncture / Unknown 08/29/2023 9:10 EDT 08/29/2023 12:58 EDT Oleg Trinidad MD CHEMISTRY & BLOOD GA S ORDERABLES [facility] [address] [place] [address] * T3 FREE (08/29/2023 9:10 EDT) Pathologist [facility] T3, Free 3.1 2.8 - 5.3 pg/mL 08/29/2023 20:53 EDT [facility] Blood VENOUS BLOOD / Unknown Venipuncture / Unknown 08/29/2023 9:10 EDT 08/29/2023 12:58 EDT Oleg Trinidad MD CHEMISTRY & BLOOD GA S ORDERABLES [facility] [address] [place] [address] * (ABNORMAL) COMPREHENSIVE METABOLIC PANEL (CMP) (08/29/2023 9:10 EDT) Pathologist [facility] Sodium 138 136 - 145 mmol/L 08/29/2023 13:33 [facility] Potassium 5.3(H) 3.5 - 5.0 mmol/L 08/29/2023 13:33 [facility] Chloride 105 96 - 110 mmol/L 08/29/2023 13:33 [facility] CO2 Total 25 22 - 32 mmol/L 08/29/2023 13:33 [facility] Glucose 100(H) 70 - 99 mg/dl 08/29/2023 13:33 [facility] BUN 16 10 - 26 mg/dL 08/29/2023 13:33 [facility] Creatinine 0.78 0.52 - 1.04 mg/dL 08/29/2023 13:33 [facility] eGFR 82 >60 mL/min/1.7 3m2 08/29/2023 13:33 [facility] Total Protein 6.6 6.3 - 8.2 g/dL 08/29/2023 13:33 [facility] Albumin 4.3 3.4 - 4.9 g/dL 08/29/2023 13:33 [facility] Alkaline Phosphatase 75 38 - 126 U/L 08/29/2023 13:33 [facility] AST 23 15 - 46 U/L 08/29/2023 13:33 [facility] ALT 14 <35 U/L 08/29/2023 13:33 [facility] Bilirubin, Total <0.5 <1.4 mg/dL 08/29/19 13:33 [facility] Calcium 9.4 8.5 - 10.5 mg/dL 08/29/2023 13:33 [facility] Albumin/Globulin Ratio 1.9 1.0 - 2.5 08/29/2023 13:33 [facility] Anion Gap 8 5 - 14 mmol/L 08/29/2023 13:33 [facility] Blood VENOUS BLOOD / Unknown Venipuncture / Unknown 08/29/2023 9:10 EDT 08/29/2023 12:58 EDT Oleg Trinidad MD CHEMISTRY & BLOOD GA S ORDERABLES [facility] [address] [place] [address] * URIC ACID (08/29/2023 9:10 EDT) Uric Acid 3.5 2.2 - 7.7 mg/dL 08/29/2023 13:33 [facility] Blood VENOUS BLOOD / Unknown Venipuncture / Unknown 08/29/2023 9:10 EDT 08/29/2023 12:58 EDT Oleg Trinidad MD CHEMISTRY & BLOOD GA S ORDERABLES [facility] [address] [place] [address] * (ABNORMAL) LIPID PROFILE (INCLUDES CHOLESTEROL, TRIGLYCERIDES, HDL, LDL) (08/29/2023 9:10 EDT) Cholesterol 82 <200 mg/dL 08/29/2023 13:33 [facility] Comment:Note that therapeuti c goals will differ between patients based on cardiac risk factors and current medical therapy. HDL 38(L) >=50 mg/dl 08/29/2023 13:33 [facility] Comment:Note that therapeuti c goals will differ between patients based on cardiac risk factors and current medical therapy. LDL, Calculated <20 <160 mg/dL 13:33 [facility] Comment: Note that therapeutic goals will differ between patients based on cardiac risk factors and current medical therapy. Calculated LDL invalid (<20 mg/dL) Direct LDL measurement added by reflex. Triglyceride 171(H) <=150 mg/dL 08/29/2023 13:33 [facility] Comment:Note that therapeuti c goals will differ between patients based on cardiac risk factors and current medical therapy. Chol/HDL Ratio 2.2 See Note 08/29/2023 13:33 [facility] Comment: NOTE: Desirable Ratio = <4.1 Patient At Risk Ratio = >5.0(Males) ?>6.0(Females) Non HDL Cholesterol 44 <160 mg/dL 08/29/2023 13:33 [facility] Comment:Note that therapeuti c goals will differ between patients based on cardiac risk factors and current medical therapy. Blood VENOUS BLOOD / Unknown Venipuncture / Unknown 08/29/2023 9:10 EDT 08/29/2023 12:58 EDT Oleg Trinidad MD CHEMISTRY & BLOOD GA S ORDERABLES Performing Organization Address City/[facility] Co de Phone Number [facility] [address] [place] [address] * NT PRO BNP (08/29/2023 9:10 EDT) NT-pro BNP 136 <221 pg/mL 08/29/2023 13:43 EDT [facility] Comment: In the acute setting NT-proBNP values <300 pg/mL have a 98% NPV for excluding acute heart failure. In outpatient populations, NT-proBNP values <125 have a 99% NPV for excluding heart failure. Blood VENOUS BLOOD / Unknown Venipuncture / Unknown 08/29/2023 9:10 EDT 08/29/2023 12:58 EDT Oleg Trinidad MD CHEMISTRY & BLOOD GA S ORDERABLES Performing Organization Address [facility] Co de Phone Number [facility] [address] [place] [address] * MAGNESIUM (08/29/2023 9:10 EDT) Magnesium 1.7 1.7 - 2.8 mg/dL 08/29/2023 13:33 EDT [facility] Blood VENOUS BLOOD / Unknown Venipuncture / Unknown 08/29/2023 9:10 EDT 08/29/2023 12:58 EDT Oleg Trinidad MD CHEMISTRY & BLOOD GA S ORDERABLES Performing Organization Address City/[facility]/ZIP Co de Phone Number [facility] [address] [place] [address] documented in this encounter Visit Diagnoses Diagnosis Coronary arteriosclerosis Coronary atherosclerosis of unspecified type of vessel, [place] and [place] or graft Heart failure, unspecified HF chronicity, unspecified heart failure type ([facility]) Gout, unspecified cause, unspecified chronicity, unspecified site Secondary hypertension Other secondary hypertension, unspecified Hypothyroidism, unspecified type Vitamin D deficiency disease Unspecified vitamin D deficiency documented in this encounter Care Teams Global Marketing Coordinator Relationship Specialty Start Date End Date Angela Cotto MD [address] [place] [phone] PCP - General Family Medicine - Primary Care 10/26/20 documented as of this encounter
--- OUTSIDE RECORDS SUMMARY | 2023-10-16 01:27 | XMS_ITS | Encounter Summary ---
Author Organization [facility] Address [address] [place] [address] Care Team Providers Care Semiconductors Wafer Breaker Name Role Phone Angela Cotto MD Primary Care Provider [phone] Reason for Referral * Radiology Services (Routine/Next Available) - Authorization Not Required Specialty Diagnoses / Procedures Referred By Contac t Referred To Contact Diagnoses Abnormal result of other cardiovascular function study Procedures CT CHEST WO CONTRAST Oleg Trinidad MD [address] [place] [address] [facility]erral ID Status Reason Start Date Expiration Date Visits Requested Visits Authorized [id number] Authorization Not Required 12/07/2022 1 1 Reason for Visit * Radiology Services (Routine/Next Available) - Authorization Not Required Specialty Diagnoses / Procedures [facility] Referred To Contact Diagnoses Abnormal result of other cardiovascular function study Procedures CT CHEST WO CONTRAST Oleg Trinidad MD [address] [place] [address] [facility] [place] Referral ID Status Reason Start Date Expiration Date Visits Requested Visits Authorized [id number] Authorization Not Required 12/07/2022 1 1 Encounter Details Date Type Department Care Team (Latest Contact Info) Description 12/27/2022 8:28 EDT - 12/27/2022 23:59 EDT Hospital Encounter [facility] CT Scan [address] [place] [address] Abnormal result of other cardiovascular function study Discharge Disposition: Home or Self Care Social [...] Procedure Name Priority Date/Time Associated Diagnosis Comments CT CHEST WO CONTRAST Routine 12/27/2022 8:35 EDT Abnormal result of other cardiovascular function study documented in this encounter Results * CT CHEST WO CONTRAST (12/27/2022 8:35 EDT) Anatomical Region Laterality Modality Chest Computed Tomogra phy 12/27/2022 8:29 EDT Impressions 12/27/2022 16:58 EDT 1. ?? No acute abnormality. No suspicious pulmonary nodules. 2. ?? Aneurysmal dilatation descending thoracic aorta up to 4.6 cm, increased from previous. COMMENTS: Consistent with the [employer]'s Incidental Findings Committee white paper (J Am Dwayne Radiol 2017): For any incidental adrenal lesion greater than or equal to 1 cm but less than or equal to 4 cm classified in this report as benign, likely benign, or containing fat (including classification as an adenoma or myelolipoma), no follow-up imaging is recommended per consensus recommendations based on imaging criteria. Further lab evaluation could be pursued if warranted based on clinical findings. THIS DOCUMENT HAS BEEN ELECTRONICALLY SIGNED BY JOANNE SALAZAR MD FOR ANY QUESTIONS OR CONCERNS REGARDING THIS REPORT PLEASE CALL [facility] AT [phone] Narrative 12/27/2022 16:58 EDT PROCEDURE INFORMATION: Exam: CT Chest Without Contrast; Diagnostic Exam date and time: 12/27/2022 8:29 AM Age: 67 years old Clinical indication: Abnormal result of other cardiovascular function study; Other: Abnormal vascular flow TECHNIQUE: Imaging protocol: Diagnostic computed tomography of the chest without contrast. 3D rendering (Not supervised by radiologist): MIP and/or 3D reconstructed images were created by the technologist. Radiation optimization: All CT scans at this facility use at least one of these dose optimization techniques: automated exposure control; mA and/or kV adjustment per patient size (includes targeted exams where dose is matched to clinical indication); or iterative reconstruction. REPORTING DATA: Count of CT and Cardiac NM exams in prior 12 months: This patient has received 0 known CTs and 0 known cardiac nuclear medicine studies in the 12 months prior to the current study. COMPARISON: CT CHEST LOW DOSE LUNG SCREENING 05/27/2018 10:10 AM FINDINGS: Lungs: Unremarkable. No consolidation. No masses. Pleural spaces: Unremarkable. No pneumothorax. No pleural effusion. Heart: Unremarkable. No cardiomegaly. No pericardial effusion. Coronary arteries: Coronary artery calcifications. Lymph nodes: Unremarkable. No enlarged lymph nodes. Vasculature: Aorta demonstrates mild atherosclerotic calcification. Ascending thoracic aorta and aortic arch normal caliber. Aneurysmal dilatation descending thoracic aorta up to 4.6 cm, increased from previous. Adrenal glands: 1.8 cm left adrenal adenoma. Bones/joints: Unremarkable. No acute fracture. Soft tissues: Unremarkable. Procedure Note Joanne Salazar MD - 12/27/2022 PROCEDURE INFORMATION: Exam: CT Chest Without Contrast; Diagnostic Exam date and time: 12/27/2022 8:29 AM Age: 67 years old Clinical indication: Abnormal result of other cardiovascular function study; Other: Abnormal vascular flow TECHNIQUE: Imaging protocol: Diagnostic computed tomography of the chest without contrast. 3D rendering (Not supervised by radiologist): MIP and/or 3D reconstructed images were created by the technologist. Radiation optimization: All CT scans at this facility use at least one of these dose optimization techniques: automated exposure control; mA and/or kV adjustment per patient size (includes targeted exams where dose is matched to clinical indication); or iterative reconstruction. REPORTING DATA: Count of CT and Cardiac NM exams in prior 12 months: This patient has received 0 known CTs and 0 known cardiac nuclear medicine studies in the 12 months prior to the current study. COMPARISON: CT CHEST LOW DOSE LUNG SCREENING 05/27/2018 10:10 AM FINDINGS: Lungs: Unremarkable. No consolidation. No masses. Pleural spaces: Unremarkable. No pneumothorax. No pleural effusion. Heart: Unremarkable. No cardiomegaly. No pericardial effusion. Coronary arteries: Coronary artery calcifications. Lymph nodes: Unremarkable. No enlarged lymph nodes. Vasculature: Aorta demonstrates mild atherosclerotic calcification. Ascending thoracic aorta and aortic arch normal caliber. Aneurysmal dilatation descending thoracic aorta up to 4.6 cm, increased from previous. Adrenal glands: 1.8 cm left adrenal adenoma. Bones/joints: Unremarkable. No acute fracture. Soft tissues: Unremarkable. IMPRESSION 1. No acute abnormality. No suspicious pulmonary nodules. 2. Aneurysmal dilatation descending thoracic aorta up to 4.6 cm, increased from previous. COMMENTS: Consistent with the [employer]'s Incidental Findings Committee white paper (J Am Dwayne Radiol 2017): For any incidental adrenal lesion greater than or equal to 1 cm but less than or equal to 4 cm classified in this report as benign, likely benign, or containing fat (including classification as an adenoma or myelolipoma), no follow-up imaging is recommended per consensus recommendations based on imaging criteria. Further lab evaluation could be pursued if warranted based on clinical findings. THIS DOCUMENT HAS BEEN ELECTRONICALLY SIGNED BY JOANNE SALAZAR MD FOR ANY QUESTIONS OR CONCERNS REGARDING THIS REPORT PLEASE CALL [facility] [phone] Oleg Trinidad MD IMG CT ORDERABLES documented in this encounter Visit Diagnoses Diagnosis Abnormal result of other cardiovascular function study documented in this encounter Care Teams Semiconductors Wafer Breaker Relationship Specialty Start Date End Date Angela Cotto MD [address] [place] [address] [phone] PCP - General Family Medicine - Primary Care 10/26/20 documented as of this encounter
--- OUTSIDE RECORDS SUMMARY | 2023-10-16 01:27 | XMS_ITS | Encounter Summary ---
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
--- OUTSIDE RECORDS SUMMARY | 2023-10-16 01:27 | XMS_ITS | Encounter Summary ---
Author Organization [facility] Address [address] [place] [address] Care Team Providers Care Job Printer Name Role Phone Angela Cotto MD Primary Care Provider [phone] Encounter Details Date Type Department Care Team (Late st Contact Info) Description 09/05/2022 Orders Only [facility] [address] [place] [address] Oleg Trinidad MD [address] [place] [phone] Heart failure, unspecified HF chronicity, unspecified heart failure type (HCC-CMS) Social History Tobacco Use Types Packs/Day Years [...] Procedure Name Priority Date/Time Associated Diagnosis Comments NT PRO BNP Routine 09/05/2022 14:13 EDT Heart failure, unspecified HF chronicity, unspecified heart failure type (HCC-CMS) documented in this encounter Results * NT PRO BNP (09/05/2022 14:13 EDT) NT-pro BNP 91 <221 pg/mL 09/05/2022 15:12 EDT [facility] Comment: In the acute setting NT-proBNP values <300 pg/mL have a 98% NPV for excluding acute heart failure. In outpatient populations, NT-proBNP values <125 have a 99% NPV for excluding heart failure. Blood VENOUS BLOOD / Unknown Venipuncture / Unknown 09/05/2022 14:13 EDT 09/05/2022 14:13 EDT Oleg Trinidad MD CHEMISTRY & BLOOD GA S ORDERABLES Performing Organization Address City/State/[place] Co de Phone Number [facility] [address] [place] [address] documented in this encounter Visit Diagnoses Diagnosis Heart failure, unspecified HF chronicity, unspecified heart failure type (HCC-CMS) documented in this encounter Care Teams Job Printer Relationship Specialty Start Date End Date Angela Cotto MD [address] [place] [address] [phone] PCP - General Family Medicine - Primary Care 10/26/20 documented as of this encounter
--- OUTSIDE RECORDS SUMMARY | 2023-10-16 01:27 | XMS_ITS | Encounter Summary ---
Author Organization [facility] Address [address] [place] [address] Care Team Providers Care Customer Service Officer Name Role Phone Angela Cotto MD Primary Care Provider [phone] Encounter Details Date Type Department Care Team (Latest Contact Info) Description 04/29/2023 12:42 EST - 04/29/2023 23:59 EST Hospital Encounter [facility] - Main [place] [address] [place] [phone] Dredge Worker, [facility] Discharge Disposition: Home [...] on filedocumented in this encounter Care Teams Customer Service Officer Relationship Specialty Start Date End Date Angela Cotto MD [address] [place] [phone] PCP - General Family Medicine - Primary Care 10/26/20 documented as of this encounter
--- OUTSIDE RECORDS SUMMARY | 2023-10-16 01:27 | XMS_ITS | Encounter Summary ---
Author Organization [facility] Address [address] [place] [address] Care Team Providers Care Chargemaster Specialist Name Role Phone Angela Cotto MD Primary Care Provider [phone] Encounter Details Date Type Department Care Team (Late st Contact Info) Description 07/11/2022 Results Only [facility] Services - [facility] [address] [place] [address] Oleg Trinidad MD [address] [place] [phone] Social History Tobacco Use Types Packs/Day [...] Procedure Name Priority Date/Time Associated Diagnosis Comments COMPREHENSIVE METABOLIC PANEL (CMP) Routine 02/12/2023 12:15 EST documented in this encounter Results * (ABNORMAL) COMPREHENSIVE METABOLIC PANEL (CMP) (02/12/2023 12:15 EST) Glucose 123.00(H) 70.00 - 100.00 mg/dL [facility] Bun 19.00 7.00 - 20.00 mg/dL [facility] Creatinine 0.90 0.70 - 1.50 mg/dL [facility] GFR, Calculated >60 [facility] Comment: Chronic renal impairment is defined as GFR <60 Multiply result by 1.210 for patients eGFR calculated using the IDMS-traceable MDRD study Sodium 143.00 137.00 - 145.00 mmol/L [facility] Potassium 5.00 3.50 - 5.10 mmol/L [facility] Chloride 100.00 98.00 - 107.00 mmol/L [facility] Carbon Dioxide 29.00 22.00 - 30.00 mmol/L [facility] Calcium 10.20 8.50 - 10.50 mg/dL [facility] Anion Gap 14 7 - 17 mmol/L [facility] Total Protein 7.40 6.30 - 8.20 g/dL [facility] Albumin 4.60 3.50 - 5.00 g/dL [facility] Total Bilirubin 0.50 0.20 - 1.30 mg/dL [facility] AST/SGOT 22.00 15.00 - 46.00 U/L [facility] ALT/SGPT 21.00 0.00 - 35.00 U/L [facility] ALK 69.00 38.00 - 126.00 U/L [facility] 02/12/2023 12:1 5 EST Oleg Tirnidad MD CHEMISTRY & BLOOD GA S ORDERABLES [facility] [address] [place] [address] documented in this encounter Visit Diagnoses Not on filedocumented in this encounter Care Teams Chargemaster Specialist Relationship Specialty Start Date End Date Angela Cotto MD [address] [place] [phone] PCP - General Family Medicine - Primary Care 10/26/20 documented as of this encounter
--- OUTSIDE RECORDS SUMMARY | 2023-10-16 01:27 | XMS_ITS | Clinical Summary ---
Author Organization [facility] Address [address] [place] [address] Care Team Providers Care Printed Circuit Board Panels Plater Name Role Phone Angela Cotto MD Primary Care Provider [phone] Allergies Active Allergy Reactions Criticality Noted Date Comments Lisinopril Cough 02/15/2021 Venom-Honey Bee 01/15/2012 Medications Medication Sig Dispensed Refills Start Date End Date Status Coenzyme Q10 100 mg capsule 1 cap(s) orally once a day Active furosemide (LASIX) 80 mg tablet 1 tab am,1/2 tab pm orally twice daily Active cholecalciferol (VITAMIN D3) 1,250 mcg (50,000 unit) capsule 1 cap(s) orally month Active aspirin 81 mg EC tablet 1 tab(s) orally once a day Active acetaminophen (TYLENOL) 325 mg tablet 1 tablet orally as needed Active levothyroxine sodium (LEVOTHYROXINE ORAL) Take by mouth. Unsure dosage Active atorvastatin (LIPITOR) 80 mg tablet Take 80 mg by mouth daily. Active cyclobenzaprine (FLEXERIL) 10 mg tablet Take 5 mg by mouth 3 times daily as needed for Muscle Spasms. Active nicotine (NICODERM CQ) 21 mg/[address] 1 Patch onto the skin every 24 hours. Active liothyronine (CYTOMEL) 25 mcg tablet Take 12.5 mcg by mouth daily. Active naproxen (NAPROSYN) 500 mg tablet Take 500 mg by mouth 2 times daily with breakfast and dinner. Active colchicine (COLCRYS) 0.6 mg tablet Take 0.6 mg by mouth daily. Active allopurinoL (ZYLOPRIM) 100 mg tablet Take 100 mg by mouth daily. Active nitroglycerin (NITROSTAT) 0.[address] 0.4 mg under the tongue every 5 minutes as needed for Chest Pain. Active EPINEPHrine (EPIPEN) 0.3 mg/0.3 mL injectionIndications: patient at risk of anaphylaxis Inject 0.3 mg into the muscle once as needed for Other (for allergic reaction). Active metFORMIN (GLUCOPHAGE) 1,000 mg tablet Take 1,000 mg by mouth 2 times daily with breakfast and dinner. Active MULTIVITAMIN ORAL Take 1 Tablet by mouth daily. Active ergocalciferol (DRISDOL; VITAMIN D2) 1,250 mcg (50,000 unit) capsule Take 50,000 Units by mouth once a week. 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 Worker, [facility] Discharge Disposition: Home or Self Care 08/29/2023 Orders Only [address] [address] Oleg Trinidad MD Coronary arteriosclerosis; Heart failure, unspecified HF chronicity, unspecified heart failure type (HCC-CMS); Gout, unspecified cause, unspecified chronicity, unspecified site; Secondary hypertension; Hypothyroidism, unspecified type; Vitamin D deficiency disease 08/29/2023 Community Orders [address] [address] Oleg Trinidad MD Vitamin D deficiency disease (Primary Dx); Hypothyroidism, unspecified type; Secondary hypertension; Gout, unspecified cause, unspecified chronicity, unspecified site; Coronary arteriosclerosis; Cardiomyopathy, unspecified type (HCC-CMS); Heart failure, unspecified HF chronicity, unspecified heart failure type ([facility]) from Last 3 Months Surgical History Surgery Date Site/Laterality Comments CORONARY ANGIOPLASTY WITH ST ENT PLACEMENT 03/25/2012 - 03/24/2013 RCA PCI Medical History Medical History Date Comments Ischemic cardiomyopathy 2012 EF 25% = > 52 after RCA PCI Family History Medical History Relation Comments Heart Attack Father Relation Status Comments Father Social History Tobacco Use Types Packs/Day Years [...] on file Sexual Orientation Not on file Obstetrics History Last Filed Vital Signs Vital Sign Reading Time Taken Comments Blood Pressure 157/87 02/15/2021 1405 EST Pulse 121 02/15/2021 1411 EST Temperature - - Respiratory Rate - - Oxygen Saturation 93% 02/15/2021 1411 EST Inhaled Oxygen Concentration - - Weight 66.7 kg (147 lb) 02/15/2021 1411 EST Height 162.6 cm (5' 4) 02/15/2021 1411 EST Body Mass Index 25.23 02/15/2021 1411 EST Plan of Treatment Health Maintenance Due Date Last Done Comments Hepatitis C Screen 1955 RSV Immunization ( o r 60+ Years) (1 - 1-dose 60+ series) 2014 Fall Risk Screening 08/12/2019 COVID-19 Vaccine ( season) 2023 Procedures Procedure Name Priority Date/Time Associated Diagnosis Comments LDL, DIRECT Today 08/29/2023 9:10 EDT Coronary arteriosclerosis VITAMIN D (25,OH) Routine 08/29/2023 9:1 0 EDT Vitamin D deficiency disease TSH Routine 08/29/2023 9:10 EDT Hypothyroidism, unspecified type T4 FREE Routine 08/29/2023 9:10 EDT Hypothyroidism, unspecified type T3 FREE Routine 08/29/2023 9:10 EDT Hypothyroidism, unspecified type COMPREHENSIVE METABOLIC PANEL (CMP) Routine 08/29/2023 9:10 EDT Secondary hypertension URIC ACID Routine 08/29/2023 9:10 EDT Gout, unspecified cause, unspecified chronicity, unspecified site LIPID PROFILE (INCLUDES CHOLESTEROL, TRIGLYCERIDES, HDL, LDL) Routine 08/29/2023 9:10 EDT Coronary arteriosclerosis NT PRO BNP Routine 08/29/2023 9:10 EDT Heart failure, unspecified HF chronicity, unspecified heart failure type (HCC-CMS) MAGNESIUM Routine 08/29/2023 9:10 EDT Coronary arteriosclerosis from Last 3 Months Results * LDL, DIRECT (08/29/2023 9:10 EDT) LDL, Direct 33 <160 mg/dL 08/29/2023 13:[address] [facility] Comment: LDL, Direct Reference Ranges: Optimal: Less than 100 mg/dL Above Optimal: 100-129 mg/dL Borderline High: 130-159 mg/dL High: 160-189 mg/dL Very High: Greater than or equal to 190 mg/dL Blood VENOUS BLOOD / Unknown Venipuncture / Unknown 08/29/2023 9:10 EDT 08/29/2023 12:58 EDT Oleg Trinidad MD CHEMISTRY & BLOOD GA S ORDERABLES [facility] [address] [place] [address] * VITAMIN D (25,OH) (08/29/2023 9:10 EDT) 25OH Vitamin D Tot 64 30 - 100 ng/mL 08/29/2023 13:[address] [facility] Blood VENOUS BLOOD / Unknown Venipuncture / Unknown 08/29/2023 9:10 EDT 08/29/2023 12:58 EDT Oleg Trinidad MD CHEMISTRY & BLOOD GA S ORDERABLES Performing Organization Address City/[facility]/ZIP Co de Phone Number [facility] [address] [place] [address] * URIC ACID (08/29/2023 9:10 EDT) Uric Acid 3.5 2.2 - 7.7 mg/dL 08/29/2023 13:[address] [facility] Blood VENOUS BLOOD / Unknown Venipuncture / Unknown 08/29/2023 9:10 EDT 08/29/2023 12:58 EDT Oleg Trinidad MD CHEMISTRY & BLOOD GA S ORDERABLES Performing Organization Address City/[facility]/ZIP Co de Phone Number [facility] [address] [place] [address] * T3 FREE (08/29/2023 9:10 EDT) T3, Free 3.1 2.8 - 5.3 pg/mL 08/29/2023 20:53 EDT [facility] Blood VENOUS BLOOD / Unknown Venipuncture / Unknown 08/29/2023 9:10 EDT 08/29/2023 12:58 EDT Oleg Trinidad MD CHEMISTRY & BLOOD GA S ORDERABLES [facility] [address] [place] [id number] * TSH (08/29/2023 9:10 EDT) TSH 1.72 0.47 - 4.68 mIU/L 08/29/2023 14:[address] [facility] Blood VENOUS BLOOD / Unknown Venipuncture / Unknown 08/29/2023 9:10 EDT 08/29/2023 12:[address] [facility] - 08/29/2023 14:05 EDT The results of this assay can be falsely lowered due to the consumption of Biotin. Oleg Trinidad MD CHEMISTRY & BLOOD GA S ORDERABLES Performing Organization Address [facility]/ZIP Co de Phone Number [facility] [address] [place] [address] * T4 FREE (08/29/2023 9:10 EDT) Pathologist [facility] T4, Free 1.3 0.8 - 2.2 ng/dL 08/29/2023 13:[address] [facility] Blood VENOUS BLOOD / Unknown Venipuncture / Unknown 08/29/2023 9:10 EDT 08/29/2023 12:58 EDT Oleg Trinidad MD CHEMISTRY & BLOOD GA S ORDERABLES Performing Organization Address [facility] Co de Phone Number [facility] [address] [place] [address] * NT PRO BNP (08/29/2023 9:10 EDT) [facility] NT-pro BNP 136 <221 pg/mL 08/29/2023 13:[address] [facility] Comment: In the acute setting NT-proBNP values <300 pg/mL have a 98% NPV for excluding acute heart failure. In outpatient populations, NT-proBNP values <125 have a 99% NPV for excluding heart failure. Blood VENOUS BLOOD / Unknown Venipuncture / Unknown 08/29/2023 9:10 EDT 08/29/2023 12:58 EDT Oleg Trinidad MD CHEMISTRY & BLOOD GA S ORDERABLES Performing Organization Address City/[facility]/ZIP Co de Phone Number [facility] [address] [place] [address] * MAGNESIUM (08/29/2023 9:10 EDT) [facility] Magnesium 1.7 1.7 - 2.8 mg/dL 08/29/2023 13:33 [facility] Blood VENOUS BLOOD / Unknown Venipuncture / Unknown 08/29/2023 9:10 EDT 08/29/2023 12:58 EDT Oleg Trinidad MD CHEMISTRY & BLOOD GA S ORDERABLES Performing Organization Address City/State/[facility] Co de Phone Number [facility] [address] [place] [address] * (ABNORMAL) LIPID PROFILE (INCLUDES CHOLESTEROL, TRIGLYCERIDES, HDL, LDL) (08/29/2023 9:10 EDT) [facility] Cholesterol 82 <200 mg/dL 08/29/2023 13:33 [facility] Comment:Note that therapeuti c goals will differ between patients based on cardiac risk factors and current medical therapy. HDL 38(L) >=50 mg/dl 08/29/2023 13:33 [facility] Comment:Note that therapeuti c goals will differ between patients based on cardiac risk factors and current medical therapy. LDL, Calculated <20 <160 mg/dL 13:33 [facility] Comment: Note that therapeutic goals will differ between patients based on cardiac risk factors and current medical therapy. Calculated LDL invalid (<20 mg/dL) Direct LDL measurement added by reflex. Triglyceride 171(H) <=150 mg/dL 08/29/2023 13:33 [facility] Comment:Note that therapeuti c goals will differ between patients based on cardiac risk factors and current medical therapy. Chol/HDL Ratio 2.2 See Note 08/29/2023 13:33 [facility] Comment: NOTE: Desirable Ratio = <4.1 Patient At Risk Ratio = >5.0(Males) ?>6.0(Females) Non HDL Cholesterol 44 <160 mg/dL 08/29/2023 13:33 [facility] Comment:Note that therapeuti c goals will differ between patients based on cardiac risk factors and current medical therapy. Blood VENOUS BLOOD / Unknown Venipuncture / Unknown 08/29/2023 9:10 EDT 08/29/2023 12:58 EDT Oleg Trinidad MD CHEMISTRY & BLOOD GA S ORDERABLES [facility] [address] [place] [address] * (ABNORMAL) COMPREHENSIVE METABOLIC PANEL (CMP) (08/29/2023 9:10 EDT) Sodium 138 136 - 145 mmol/L 08/29/2023 13:33 [facility] Potassium 5.3(H) 3.5 - 5.0 mmol/L 08/29/2023 13:33 [facility] Chloride 105 96 - 110 mmol/L 08/29/2023 13:33 [facility] CO2 Total 25 22 - 32 mmol/L 08/29/2023 13:33 [facility] Glucose 100(H) 70 - 99 mg/dl 08/29/2023 13:33 [facility] BUN 16 10 - 26 mg/dL 08/29/2023 13:33 [facility] Creatinine 0.78 0.52 - 1.04 mg/dL 08/29/2023 13:33 [facility] eGFR 82 >60 mL/min/1.7 3m2 08/29/2023 13:33 [facility] Total Protein 6.6 6.3 - 8.2 g/dL 08/29/2023 13:33 [facility] Albumin 4.3 3.4 - 4.9 g/dL 08/29/2023 13:33 [facility] Alkaline Phosphatase 75 38 - 126 U/L 08/29/2023 13:33 [facility] AST 23 15 - 46 U/L 08/29/2023 13:[address] [facility] ALT 14 <35 U/L 08/29/2023 13:33 [facility] Bilirubin, Total <0.5 <1.4 mg/dL 08/29/19 13:[address] [facility] Calcium 9.4 8.5 - 10.5 mg/dL 08/29/2023 13:33 [facility] Albumin/Globulin Ratio 1.9 1.0 - 2.5 08/29/2023 13:[address] [facility] Anion Gap 8 5 - 14 mmol/L 08/29/2023 13:33 [facility] Blood VENOUS BLOOD / Unknown Venipuncture / Unknown 08/29/2023 9:10 EDT 08/29/2023 12:58 EDT Oleg Trinidad MD CHEMISTRY & BLOOD GA S ORDERABLES Performing Organization Address City/State/[facility] Co de Phone Number [facility] [address] [place] [address] from Last 3 Months Care Teams Printed Circuit Board Panels Plater Relationship Specialty Start Date End Date Angela Cotto MD [address] [place] [phone] PCP - General Family Medicine - Primary Care 10/26/20
--- OUTSIDE RECORDS SUMMARY | 2023-10-16 01:27 | XMS_ITS | Encounter Summary ---
Author Organization [facility] Address [address] [place] [address] Care Team Providers Care Inspector Machine Parts Name Role Phone Angela Cotto MD Primary Care Provider [phone] Encounter Details Date Type Department Care Team (Late st Contact Info) Description 07/11/2022 Orders Only [facility] [address] [place] [address] Oleg Trinidad MD [address] [place] [phone] Coronary arteriosclerosis; Heart failure, unspecified [...] Associated Diagnosis Comments NT PRO BNP Routine 07/11/2022 10:20 EDT Coronary arteriosclerosis Heart failure, unspecified HF chronicity, unspecified heart failure type (HCC-CMS) documented in this encounter Results * (ABNORMAL) NT PRO BNP (07/11/2022 10:20 EDT) NT-pro BNP 224(H) <221 pg/mL 07/11/2022 15:37 EDT [facility] Comment: In the acute setting NT-proBNP values <300 pg/mL have a 98% NPV for excluding acute heart failure. In outpatient populations, NT-proBNP values <125 have a 99% NPV for excluding heart failure. Blood VENOUS BLOOD / Unknown Venipuncture / Unknown 07/11/2022 10:20 EDT 07/11/2022 14:53 EDT Oleg Trinidad MD CHEMISTRY & BLOOD GA S ORDERABLES [facility] [address] [place] [address] documented in this encounter Visit Diagnoses Diagnosis Coronary arteriosclerosis Coronary atherosclerosis of unspecified type of vessel, cocopah or graft Heart failure, unspecified HF chronicity, unspecified heart failure type (HCC-CMS) documented in this encounter Care Teams Inspector Machine Parts Relationship Specialty Start Date End Date Angela Cotto MD [address] [place] [phone] PCP - General Family Medicine - Primary Care 10/26/20 documented as of this encounter
--- OUTSIDE RECORDS SUMMARY | 2023-10-16 01:27 | XMS_ITS | Encounter Summary ---
Author Organization [facility] Address [address] [place] [address] Care Team Providers Care Rolfer Name Role Phone Angela Cotto MD Primary Care Provider [phone] Encounter Details Date Type Department Care Team (Late st Contact Info) Description 02/12/2023 Results Only [facility] Laboratory Services - [facility] [address] [place] [address] Oleg Trinidad MD [address] [place] [phone] Social History Tobacco Use Types Packs/Day [...] Procedure Name Priority Date/Time Associated Diagnosis Comments TSH Routine 02/12/2023 12:15 EST documented in this encounter Results * TSH (02/12/2023 12:15 EST) TSH 3.95 0.45 - 5.33 uIU/mL [facility] 02/12/2023 12:1 5 EST Oleg Trinidad MD CHEMISTRY & BLOOD GA S ORDERABLES [facility] [address] [place] [address] documented in this encounter Visit Diagnoses Not on filedocumented in this encounter Care Teams Rolfer Relationship Specialty Start Date End Date Angela Cotto MD [address] [place] [phone] PCP - General Family Medicine - Primary Care 10/26/20 documented as of this encounter
--- OUTSIDE RECORDS SUMMARY | 2023-10-16 01:27 | XMS_ITS | Encounter Summary ---
Author Organization [facility] Address [address] [place] [address] Care Team Providers Care Electrical And Radio Aircraft Mechanic Name Role Phone Angela Cotto MD Primary Care Provider [phone] Encounter Details Date Type Department Care Team (Late st Contact Info) Description 04/29/2023 Orders Only [facility] [address] [place] [address] Oleg Trinidad MD [address] [place] [phone] Heart failure, unspecified HF chronicity, [...] Associated Diagnosis Comments NT PRO BNP Routine 04/29/2023 12:42 EST Heart failure, unspecified HF chronicity, unspecified heart failure type (HCC-CMS) documented in this encounter Results * NT PRO BNP (04/29/2023 12:42 EST) NT-pro BNP 54 <221 pg/mL 04/29/2023 13:[address] [facility] Comment: In the acute setting NT-proBNP values <300 pg/mL have a 98% NPV for excluding acute heart failure. In outpatient populations, NT-proBNP values <125 have a 99% NPV for excluding heart failure. Blood VENOUS BLOOD / Unknown Venipuncture / Unknown 04/29/2023 12:42 EST 04/29/2023 12:42 EST Oleg Trinidad MD CHEMISTRY & BLOOD GA S ORDERABLES Performing Organization Address City/State/[facility] Co de Phone Number [facility] [address] [place] [address] documented in this encounter Visit Diagnoses Diagnosis Heart failure, unspecified HF chronicity, unspecified heart failure type (HCC-CMS) documented in this encounter Care Teams Electrical And Radio Aircraft Mechanic Relationship Specialty Start Date End Date Angela Cotto MD [address] [place] [phone] PCP - General Family Medicine - Primary Care 10/26/20 documented as of this encounter
--- OUTSIDE RECORDS SUMMARY | 2023-10-16 01:27 | XMS_ITS | Referral Summary ---
Author Organization [facility] Address [address] [place] [address] Care Team Providers Care Veterinary Hospital Attendant Name Role Phone Angela Cotto MD Primary Care Provider [phone] Encounters Date Type Department Care Team Description 08/29/2023 Orders Only [facility] [address], [place] [phone] Oleg Trinidad MD Coronary arteriosclerosis; Heart failure, unspecified HF chronicity, unspecified heart failure type (HCC-CMS); Gout, unspecified cause, unspecified chronicity, unspecified site; Secondary hypertension; Hypothyroidism, unspecified type; Vitamin D deficiency disease 08/29/2023 12:56 EDT - 08/29/2023 23:59 EDT Hospital Encounter [facility] [place] [address] [place] [phone] Lock Tender Chief Operator, [facility] Discharge Disposition: Home or Self Care 08/29/2023 Community Orders [facility] [address], [place] [phone] Oleg Trinidad MD Vitamin D deficiency disease (Primary Dx); Hypothyroidism, unspecified type; Secondary hypertension; Gout, unspecified cause, unspecified chronicity, unspecified site; Coronary arteriosclerosis; Cardiomyopathy, unspecified type (HCC-CMS); Heart failure, unspecified HF chronicity, unspecified heart failure type (HCC-CMS) from Last 3 Months Allergies Active Allergy Reactions Criticality Noted Date [...] 02/15/2021 Hypothyroid 02/15/2021 Ischemic mitral regurgitation 02/15/2021 Social History Tobacco Use Types Packs/Day Years [...] Body Mass Index 25.23 02/15/2021 1411 EST Functional Status Functional Status Response Date of [...] concentrating, remembering, or making decisions? No 02/15/2021 Plan of Treatment Not on file Procedures Procedure Name Priority Date/Time Associated Diagnosis [...] unspecified HF chronicity, unspecified heart failure type ([facility]) MAGNESIUM Routine 08/29/2023 9:10 EDT Coronary arteriosclerosis from Last 3 Months Results * LDL, DIRECT (08/29/2023 9:10 EDT) LDL, Direct 33 <160 mg/dL 08/29/2023 13:56 EDT [facility] Comment: LDL, Direct Reference Ranges: Optimal: Less than 100 mg/dL Above Optimal: 100-129 mg/dL Borderline High: 130-159 mg/dL High: 160-189 mg/dL Very High: Greater than or equal to 190 mg/dL Blood VENOUS BLOOD / Unknown Venipuncture / Unknown 08/29/2023 9:10 EDT 08/29/2023 12:58 EDT Oleg Trinidad MD CHEMISTRY & BLOOD GA S ORDERABLES [facility] [address] [place] [address] * VITAMIN D (25,OH) (08/29/2023 9:10 EDT) 25OH Vitamin D Tot 64 30 - 100 ng/mL 08/29/2023 13:51 EDT [facility] Blood VENOUS BLOOD / Unknown Venipuncture / Unknown 08/29/2023 9:10 EDT 08/29/2023 12:58 EDT Oleg Trinidad MD CHEMISTRY & BLOOD GA S ORDERABLES Performing Organization Address City/[facility]/ZIP Co de Phone Number [facility] [address] [place] [address] * URIC ACID (08/29/2023 9:10 EDT) Uric Acid 3.5 2.2 - 7.7 mg/dL 08/29/2023 13:33 EDT [facility] Blood VENOUS BLOOD / Unknown Venipuncture / Unknown 08/29/2023 9:10 EDT 08/29/2023 12:58 EDT Oleg Trinidad MD CHEMISTRY & BLOOD GA S ORDERABLES Performing Organization Address City/[facility]/ZIP Co de Phone Number [facility] [address] [place] [address] * T3 FREE (08/29/2023 9:10 EDT) T3, Free 3.1 2.8 - 5.3 pg/mL 08/29/2023 20:53 EDT [facility] Blood VENOUS BLOOD / Unknown Venipuncture / Unknown 08/29/2023 9:10 EDT 08/29/2023 12:58 EDT Oleg Trinidad MD CHEMISTRY & BLOOD GA S ORDERABLES [facility] [address] [place] [address] * TSH (08/29/2023 9:10 EDT) TSH 1.72 0.47 - 4.68 mIU/L 08/29/2023 14:05 EDT [facility] Blood VENOUS BLOOD / Unknown Venipuncture / Unknown 08/29/2023 9:10 EDT 08/29/2023 12:58 EDT Narrative [facility] - 08/29/2023 14:05 EDT The results of this assay can be falsely lowered due to the consumption of Biotin. Oleg Trinidad MD CHEMISTRY & BLOOD GA S ORDERABLES Performing Organization Address [facility] Co de Phone Number [facility] [address] [place] [address] * T4 FREE (08/29/2023 9:10 EDT) T4, Free 1.3 0.8 - 2.2 ng/dL 08/29/2023 13:51 EDT [facility] Blood VENOUS BLOOD / Unknown Venipuncture / Unknown 08/29/2023 9:10 EDT 08/29/2023 12:58 EDT Oleg Trinidad MD CHEMISTRY & BLOOD GA S ORDERABLES Performing Organization Address [facility] Number [facility] [address] [place] [address] * NT PRO BNP (08/29/2023 9:10 EDT) NT-pro BNP 136 <221 pg/mL 08/29/2023 13:43 EDT [facility] Comment: In the acute setting NT-proBNP values <300 pg/mL have a 98% NPV for excluding acute heart failure. In outpatient populations, NT-proBNP values <125 have a 99% NPV for excluding heart failure. Blood VENOUS BLOOD / Unknown Venipuncture / Unknown 08/29/2023 9:10 EDT 08/29/2023 12:58 EDT Oleg Trinidad MD CHEMISTRY & BLOOD GA S ORDERABLES Performing Organization Address [facility] Co de Phone Number [facility] [address] [place] [address] * MAGNESIUM (08/29/2023 9:10 EDT) Magnesium 1.7 1.7 - 2.8 mg/dL 08/29/2023 13:33 EDT [facility] Blood VENOUS BLOOD / Unknown Venipuncture / Unknown 08/29/2023 9:10 EDT 08/29/2023 12:58 EDT Oleg Trinidad MD CHEMISTRY & BLOOD GA S ORDERABLES [facility] [address] [place] [address] * (ABNORMAL) LIPID PROFILE (INCLUDES CHOLESTEROL, TRIGLYCERIDES, HDL, LDL) (08/29/2023 9:10 EDT) Cholesterol 82 <200 mg/dL 08/29/2023 13:33 [facility] Comment:Note that therapeuti c goals will differ between patients based on cardiac risk factors and current medical therapy. HDL 38(L) >=50 mg/dl 08/29/2023 13:33 [facility] Comment:Note that therapeuti c goals will differ between patients based on cardiac risk factors and current medical therapy. LDL, Calculated <20 <160 mg/dL 13:33 [facility] Comment: Note that therapeutic goals will differ between patients based on cardiac risk factors and current medical therapy. Calculated LDL invalid (<20 mg/dL) Direct LDL measurement added by reflex. Triglyceride 171(H) <=150 mg/dL 08/29/2023 13:33 [facility] Comment:Note that therapeuti c goals will differ between patients based on cardiac risk factors and current medical therapy. Chol/HDL Ratio 2.2 See Note 08/29/2023 13:33 [facility] Comment: NOTE: Desirable Ratio = <4.1 Patient At Risk Ratio = >5.0(Males) ?>6.0(Females) Non HDL Cholesterol 44 <160 mg/dL 08/29/2023 13:33 [facility] Comment:Note that therapeuti c goals will differ between patients based on cardiac risk factors and current medical therapy. Blood VENOUS BLOOD / Unknown Venipuncture / Unknown 08/29/2023 9:10 EDT 08/29/2023 12:58 EDT Oleg Trinidad MD CHEMISTRY & BLOOD GA S ORDERABLES [facility] [address] [place] [address] * (ABNORMAL) COMPREHENSIVE METABOLIC PANEL (CMP) (08/29/2023 9:10 EDT) Sodium 138 136 - 145 mmol/L 08/29/2023 13:33 [facility] Potassium 5.3(H) 3.5 - 5.0 mmol/L 08/29/2023 13:33 [facility] Chloride 105 96 - 110 mmol/L 08/29/2023 13:33 [facility] CO2 Total 25 22 - 32 mmol/L 08/29/2023 13:33 [facility] Glucose 100(H) 70 - 99 mg/dl 08/29/2023 13:33 [facility] BUN 16 10 - 26 mg/dL 08/29/2023 13:33 [facility] Creatinine 0.78 0.52 - 1.04 mg/dL 08/29/2023 13:33 [facility] eGFR 82 >60 mL/min/1.7 3m2 08/29/2023 13:33 [facility] Total Protein 6.6 6.3 - 8.2 g/dL 08/29/2023 13:33 [facility] Albumin 4.3 3.4 - 4.9 g/dL 08/29/2023 13:33 [facility] Alkaline Phosphatase 75 38 - 126 U/L 08/29/2023 13:33 [facility] AST 23 15 - 46 U/L 08/29/2023 13:33 [facility] ALT 14 <35 U/L 08/29/2023 13:33 [facility] Bilirubin, Total <0.5 <1.4 mg/dL 08/29/19 13:33 EDT [facility] Calcium 9.4 8.5 - 10.5 mg/dL 08/29/2023 13:33 EDT [facility] Albumin/Globulin Ratio 1.9 1.0 - 2.5 08/29/2023 13:33 EDT [facility] Anion Gap 8 5 - 14 mmol/L 08/29/2023 13:33 EDT [facility] Blood VENOUS BLOOD / Unknown Venipuncture / Unknown 08/29/2023 9:10 EDT 08/29/2023 12:58 EDT Oleg Trinidad MD CHEMISTRY & BLOOD GA S ORDERABLES [facility] [address] [place] [address] from Last 3 Months Care Teams Veterinary Hospital Attendant Relationship Specialty Start Date End Date Angela Cotto MD [address] [place] [phone] PCP - General Family Medicine - Primary Care 10/26/20
--- OUTSIDE RECORDS SUMMARY | 2023-10-16 01:27 | XMS_ITS | Encounter Summary ---
Author Organization [facility] Address [address] [place] [address] Care Team Providers Care Policewoman Name Role Phone Angela Cotto MD Primary Care Provider [phone] Encounter Details Date Type Department Care Team (Latest Contact Info) Description 09/05/2022 [facility] [address] [place] [address] Oleg Trinidad MD [address] [place] [phone] Coronary arteriosclerosis (Primary Dx); Ischemic cardiomyopathy; Primary cardiomyopathy (HCC-CMS); Heart failure, unspecified HF chronicity, unspecified [...] documented as of this encounter Results * NT PRO BNP (09/05/2022 14:13 EDT) NT-pro BNP 91 <221 pg/mL 09/05/2022 15:12 EDT [facility] Comment: In the acute setting NT-proBNP values <300 pg/mL have a 98% NPV for excluding acute heart failure. In outpatient populations, NT-proBNP values <125 have a 99% NPV for excluding heart failure. Blood VENOUS BLOOD / Unknown Venipuncture / Unknown 09/05/2022 14:13 EDT 09/05/2022 14:13 EDT Oleg Trinidad MD CHEMISTRY & BLOOD GA S ORDERABLES Performing Organization Address City/State/[facility] Co de Phone Number [facility] [address] [place] [address] documented in this encounter Visit Diagnoses Diagnosis Coronary arteriosclerosis- Primary Coronary atherosclerosis of unspecified type of vessel, upper [place] or graft Ischemic cardiomyopathy Other specified forms of chronic ischemic heart disease Primary cardiomyopathy (HCC-CMS) Other primary cardiomyopathies Heart failure, unspecified HF chronicity, unspecified heart failure type (HCC-CMS) documented in this encounter Care Teams Policewoman Relationship Specialty Start Date End Date Angela Cotto MD [address] [place] [phone] PCP - General Family Medicine - Primary Care 10/26/20 documented as of this encounter
--- OUTSIDE RECORDS SUMMARY | 2023-10-16 01:27 | XMS_ITS | Encounter Summary ---
Author Organization [facility] Address [address] [place] [address] Care Team Providers Care Map Editor Name Role Phone Angela Cotto MD Primary Care Provider [phone] Encounter Details Date Type Department Care Team (Latest Contact Info) Description 07/11/2022 [facility] [address] [place] [address] Oleg Trinidad MD [address] [place] [phone] Coronary arteriosclerosis (Primary Dx); Heart failure, unspecified HF chronicity, unspecified heart [...] as of this encounter Results * (ABNORMAL) NT PRO BNP (07/11/2022 10:20 EDT) NT-pro BNP 224(H) <221 pg/mL 07/11/2022 15:37 EDT [facility] Comment: In the acute setting NT-proBNP values <300 pg/mL have a 98% NPV for excluding acute heart failure. In outpatient populations, NT-proBNP values <125 have a 99% NPV for excluding heart failure. Blood VENOUS BLOOD / Unknown Venipuncture / Unknown 07/11/2022 10:20 EDT 07/11/2022 14:53 EDT Oleg Trinidad MD CHEMISTRY & BLOOD GA S ORDERABLES [facility] [address] [place] [address] documented in this encounter Visit Diagnoses Diagnosis Coronary arteriosclerosis- Primary Coronary atherosclerosis of unspecified type of vessel, [place] or graft Heart failure, unspecified HF chronicity, unspecified heart failure type ([facility]-CMS) documented in this encounter Care Teams Map Editor Relationship Specialty Start Date End Date Angela Cotto MD [address] [place] [phone] PCP - General Family Medicine - Primary Care 10/26/20 documented as of this encounter
--- OUTSIDE RECORDS SUMMARY | 2023-10-16 01:27 | XMS_ITS | Encounter Summary ---
Author Organization [facility] Address [address] [place] [address] Care Team Providers Care Heating And Refrigeration Inspector Name Role Phone Angela Cotto MD Primary Care Provider [phone] Encounter Details Date Type Department Care Team (Late st Contact Info) Description 08/29/2023 [facility] [address] [place] [address] Oleg Trinidad MD [address] [place] [phone] Vitamin D deficiency disease (Primary Dx); Hypothyroidism, [...] documented as of this encounter Results * MAGNESIUM (08/29/2023 9:10 EDT) Magnesium 1.7 1.7 - 2.8 mg/dL 08/29/2023 13:33 EDT [facility] Blood VENOUS BLOOD / Unknown Venipuncture / Unknown 08/29/2023 9:10 EDT 08/29/2023 12:58 EDT Oleg Trinidad MD CHEMISTRY & BLOOD GA S ORDERABLES Performing Organization Address [facility] Co de Phone Number [facility] [address] [place] [address] * NT PRO BNP (08/29/2023 9:10 EDT) NT-pro BNP 136 <221 pg/mL 08/29/2023 13:43 EDT [facility] Comment: In the acute setting NT-proBNP values <300 pg/mL have a 98% NPV for excluding acute heart failure. In outpatient populations, NT-proBNP values <125 have a 99% NPV for excluding heart failure. Blood VENOUS BLOOD / Unknown Venipuncture / Unknown 08/29/2023 9:10 EDT 08/29/2023 12:58 EDT Oleg Trinidad MD CHEMISTRY & BLOOD GA S ORDERABLES Performing Organization Address [facility]/ZIP Co de Phone Number [facility] [address] [place] [address] * (ABNORMAL) LIPID PROFILE (INCLUDES CHOLESTEROL, TRIGLYCERIDES, HDL, LDL) (08/29/2023 9:10 EDT) Cholesterol 82 <200 mg/dL 08/29/2023 13:33 EDT [facility] Comment:Note that therapeuti [...] MD CHEMISTRY & BLOOD GA S ORDERABLES [facility] [address] [place] [address] * URIC ACID (08/29/2023 9:10 EDT) Uric Acid 3.5 2.2 - 7.7 mg/dL 08/29/2023 13:33 [facility] Blood VENOUS BLOOD / Unknown Venipuncture / Unknown 08/29/2023 9:10 EDT 08/29/2023 12:58 EDT Oleg Trinidad MD CHEMISTRY & BLOOD GA S ORDERABLES [facility] [address] [place] [address] * (ABNORMAL) COMPREHENSIVE METABOLIC PANEL (CMP) (08/29/2023 [...] Total <0.5 <1.4 mg/dL 08/29/19 13:33 EDT [facility] Calcium 9.4 8.5 - 10.5 mg/dL 08/29/2023 13:33 EDT [facility] Albumin/Globulin Ratio 1.9 1.0 - 2.5 08/29/2023 13:33 EDT [facility] Anion Gap 8 5 - 14 mmol/L 08/29/2023 13:33 EDT [facility] Blood VENOUS BLOOD / Unknown Venipuncture / Unknown 08/29/2023 9:10 EDT 08/29/2023 12:58 EDT Oleg Trinidad MD CHEMISTRY & BLOOD GA S ORDERABLES [facility] [address] [place] [address] * T3 FREE (08/29/2023 9:10 EDT) T3, Free 3.1 2.8 - 5.3 pg/mL 08/29/2023 20:53 EDT [facility] Blood VENOUS BLOOD / Unknown Venipuncture / Unknown 08/29/2023 9:10 EDT 08/29/2023 12:58 EDT Oleg Trinidad MD CHEMISTRY & BLOOD GA S ORDERABLES [facility] [address] [place] [address] * T4 FREE (08/29/2023 9:10 EDT) T4, Free 1.3 0.8 - 2.2 ng/dL 08/29/2023 13:51 EDT [facility] Blood VENOUS BLOOD / Unknown Venipuncture / Unknown 08/29/2023 9:10 EDT 08/29/2023 12:58 EDT Oleg Trinidad MD CHEMISTRY & BLOOD GA S ORDERABLES Performing Organization Address City/[facility] Co de Phone Number [facility] [address] [place] [address] * TSH (08/29/2023 9:10 EDT) TSH 1.72 0.47 - 4.68 mIU/L 08/29/2023 14:05 EDT [facility] Blood VENOUS BLOOD / Unknown Venipuncture / Unknown 08/29/2023 9:10 EDT 08/29/2023 12:58 EDT Narrative [facility] - 08/29/2023 14:05 EDT The results of this assay can be falsely lowered due to the consumption of Biotin. Oleg Trinidad MD CHEMISTRY & BLOOD GA S ORDERABLES Performing Organization Address [facility] Co de Phone Number [facility] [address] [place] [address] * VITAMIN D (25,OH) (08/29/2023 9:10 EDT) 25OH Vitamin D Tot 64 30 - 100 ng/mL 08/29/2023 13:51 EDT [facility] Blood VENOUS BLOOD / Unknown Venipuncture / Unknown 08/29/2023 9:10 EDT 08/29/2023 12:58 EDT Oleg Trinidad MD CHEMISTRY & BLOOD GA S ORDERABLES Performing Organization Address City/[facility] Co de Phone Number [facility] [address] [place] [address] documented in this encounter Visit Diagnoses Diagnosis Vitamin D deficiency disease- Primary Unspecified vitamin D deficiency Hypothyroidism, unspecified type Secondary hypertension Other secondary hypertension, unspecified Gout, unspecified cause, unspecified chronicity, unspecified site Coronary arteriosclerosis Coronary atherosclerosis of unspecified type of vessel, [place] or graft Cardiomyopathy, unspecified type (HCC-CMS) Heart failure, unspecified HF chronicity, unspecified heart failure type (HCC-CMS) documented in this encounter Care Teams Heating And Refrigeration Inspector Relationship Specialty Start Date End Date Angela Cotto MD [address] [place] [phone] PCP - General Family Medicine - Primary Care 10/26/20 documented as of this encounter
--- OUTSIDE RECORDS SUMMARY | 2023-10-16 01:27 | XMS_ITS | Encounter Summary ---
Author Organization [facility] [place] [address] Care Team Providers Care Gauge Machine Operator Name Role Phone Unavailable Primary Care Provider Unavailabl e Encounter Details Date Type Department Care Team (Late st Contact Info) Description 05/01/2012 Orders Only Cardiology at [address] [phone] Vicky Dickinson PA [facility] [place] [address] Social History Tobacco Use Types Packs/Day Years Used Date Smoking Tobacco: Never Assessed Sex and Gender Information Value Date Recorded Sex Assigned at Not on file Gender Identity Not on file Sexual Orientation Not on file documented as of this encounter Plan of Treatment Upcoming Encounters Date Type Department Care Team (Late st Contact Info) Description 10/17/2023 10:30 AM EDT Appointment Non-[place]vasive [place] [phone] [place] [address] 10/17/2023 11:40 AM EDT Office Visit Cardiology at [address] [phone] Lea Jay MD [place], [place] [phone] 11/15/2023 10:00 AM EDT Hospital Encounter Non-[place]vasive [place] [phone] Arrived 11/21/2023 1:40 PM EDT Office Visit Cardiology at [address] [phone] Lea Hodges MD [facility] [place] [address] Scheduled Orders Name Type Priority Associated Diagnoses Order Schedule Cardiac Catheterization Cardiac Cath Routine One Time for 1 Occurrences starting 05/01/2012 until 05/01/2012 documented as of this encounter Visit Diagnoses Not on filedocumented in this encounter
--- OUTSIDE RECORDS SUMMARY | 2023-10-16 01:27 | XMS_ITS | Encounter Summary ---
Author Organization [facility] Address [address] [place] [address] Care Team Providers Care Manager Business Planning Name Role Phone Angela Cotto MD Primary Care Provider [phone] Encounter Details Date Type Department Care Team (Late st Contact Info) Description 02/12/2023 Results Only [facility] [address] [place] [address] Oleg Trinidad MD [address] [place] [phone] Social History Tobacco Use Types Packs/Day [...] Procedure Name Priority Date/Time Associated Diagnosis Comments COMPLETE BLOOD COUNT WITH DIFFERENTIAL (AUTO) Routine 02/12/2023 12:15 EST documented in this encounter Results * (ABNORMAL) COMPLETE BLOOD COUNT WITH DIFFERENTIAL (AUTO) (02/12/2023 12:15 EST) WBC 8.6 4.0 - 12.4 x10e3/uL [facility] Lymphocytes 31.5 % [facility] Monocytes 7.3 % [facility] Lymph # 2.72 1.09 - 3.30 x10e3/uL [facility] Walsh # 0.63 0.10 - 0.80 x10e3/uL [facility] RBC 5.01 3.86 - 5.04 x10e6/uL [facility] HGB 15.1 11.6 - 15.2 g/dL [facility] HCT 47.2(H) 34.9 - 44.4 % [facility] MCV 94.2 81.0 - 98.0 fL [facility] MCH 30.1 26.7 - 33.3 pg [facility] MCHC 32.0(L) 32.1 - 35.9 g/dL [facility] RDW 14.4 <14.7 % [facility] PLT 287 141 - 377 x10e3/uL [facility] MPV 9.7 9.5 - 12.7 fL [facility] Absolute Neutrophil 5.07 2.20 - 8.85 x10e3/uL [facility] Neutrophils 58.8 % [facility] Eosinophils 1.5 % [facility] Eosinophils Absolute 0.13 0.03 - 0.61 x10e3/uL [facility] Basophils 0.8 % [facility] Basophils Absolute 0.07 0.01 - 0.11 x10e3/uL [facility] Immature Granulocytes 0.1 % [facility] Immature Granulocytes Absolute 0.01 0.00 - 0.06 x10e3/uL [facility] RDW-SD 50.7(H) <50.4 fL [facility] 02/12/2023 12:1 5 EST Oleg Trinidad MD HEMATOLOGY & PF4 ORD ERABLES [facility] [address] [place] [address] documented in this encounter Visit Diagnoses Not on filedocumented in this encounter Care Teams Manager Business Planning Relationship Specialty Start Date End Date Angela Cotto MD [address] [place] [phone] PCP - General Family Medicine - Primary Care 10/26/20 documented as of this encounter
--- OUTSIDE RECORDS SUMMARY | 2023-10-16 01:27 | XMS_ITS | Encounter Summary ---
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, unspecified whether hughes or transplanted heart (HCC-CMS); Heart failure, unspecified [...] Priority Date/Time Associated Diagnosis Comments LDL, DIRECT Routine 02/12/2023 8:50 EST Elevated triglycerides with high cholesterol NT PRO BNP Routine 02/12/2023 8:50 EST 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, unspecified whether hughes or transplanted heart (HCC-CMS) Heart failure, unspecified HF chronicity, unspecified heart failure type (HCC-CMS) documented in this encounter Results * LDL, DIRECT (02/12/2023 8:50 EST) LDL, Direct 104 <160 mg/dL 02/13/2023 14:11 EST [facility] Comment: LDL, Direct Reference Ranges: Optimal: Less than 100 mg/dL Above Optimal: 100-129 mg/dL Borderline High: 130-159 mg/dL High: 160-189 mg/dL Very High: Greater than or equal to 190 mg/dL Blood VENOUS BLOOD / Unknown Venipuncture / Unknown 02/12/2023 8:50 EST 02/12/2023 17:52 EST Oleg Trinidad MD CHEMISTRY & BLOOD GA S ORDERABLES Performing Organization Address City/State/[facility] Co de Phone Number [facility] [address] [place] [address] * NT PRO BNP (02/12/2023 8:50 EST) NT-pro BNP 151 <221 pg/mL 02/12/2023 18:16 EST [facility] Comment: In the acute setting NT-proBNP values <300 pg/mL have a 98% NPV for excluding acute heart failure. In outpatient populations, NT-proBNP values <125 have a 99% NPV for excluding heart failure. 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
--- OUTSIDE RECORDS SUMMARY | 2023-10-16 01:27 | XMS_ITS | Encounter Summary ---
Author Organization [facility] Address [address] [place] [address] Care Team Providers Care Canal Superintendent Name Role Phone Angela Cotto MD Primary Care Provider [phone] Encounter Details Date Type Department Care Team (Late st Contact Info) Description 07/11/2022 Results Only [facility] Laboratory Services - [facility] [address] [place] [address] Oleg Trinidad MD [address] [place] [phone] Social History Tobacco Use Types Packs/Day [...] Procedure Name Priority Date/Time Associated Diagnosis Comments MAGNESIUM Routine 02/12/2023 12:15 EST documented in this encounter Results * MAGNESIUM (02/12/2023 12:15 EST) Magnesium 1.80 1.60 - 2.30 mg/dL [facility] 02/12/2023 12:1 5 EST Oleg Trinidad MD CHEMISTRY & BLOOD GA S ORDERABLES Performing Organization Address City/State/[facility] Co de Phone Number [facility] [address] [place] [address] documented in this encounter Visit Diagnoses Not on filedocumented in this encounter Care Teams Canal Superintendent Relationship Specialty Start Date End Date Angela Cotto MD [address] [place] [phone] PCP - General Family Medicine - Primary Care 10/26/20 documented as of this encounter
--- OUTSIDE RECORDS SUMMARY | 2023-10-16 01:27 | XMS_ITS | Encounter Summary ---
Author Organization [facility] [place] [address] Care Team Providers Care Ui Ux Developer Name Role Phone Unavailable Primary Care Provider Unavailabl e Encounter Details Date Type Department Care Team (Late st Contact Info) Description 05/06/2012 7:30 AM EST - 05/06/2012 8:30 AM EST [place] [address] Raoul Martin MD [facility] [place] [address] CARDIAC CATHETERIZATION Social History Tobacco Use Types [...] Sign Reading Time Taken Comments Blood Pressure 117/54 05/06/2012 7:19 AM EST Pulse 75 05/06/2012 7:19 AM EST Temperature 36.6 ??C (97.9 ??F) 05/06/2012 7:19 AM ES T Respiratory Rate 16 05/06/2012 7:19 AM EST Oxygen Saturation 93% 05/06/2012 7:19 AM EST Inhaled Oxygen Concentration - - Weight 67.1 kg (148 lb) 05/06/2012 7:19 AM EST Height 162.6 cm (5' 4) 05/06/2012 7:19 AM EST Body Mass Index 25.23 05/06/2012 1:55 PM EST documented in this encounter Discharge Instructions * Patient Instructions* Cipriano Morales - 05/07/2012 8:42 AM EST Anti-coagulation follow up: N/A Call your doctor if: Chest pain, dyspnea, pain or swelling in legs occurs. If you have non-emergent questions between now and the time of your follow up appointments: During 8am-5pm Saturday through Saturday call [phone] to speak with a nurse in the cardiology clinic All other times call [phone] and ask to speak to the director network development simulation educator. Return to work: One week Driving: No driving for 48 hours after catheterization. Follow up Appointments: PCP Call for appointment in 1-2 weeks. Air Director You should be seen in 3-4 weeks [...] try Chantix. She has a good friend (high density press laborer RN) who recently quit w/[employer]. She is [...] inferior wall. She was brought to cardiac high density press laborer. Her angiogram showed a 50 % lesion [...] in sodium chloride 0.9% 50 mL infusion (ROLLWAY MAN) Continuous PRN Raoul Martin MD 1.75 mg/kg/hr [...] Min PRN Cipriano Morales MD No current [facility]-ordered outpatient prescriptions on file. Physical Exam: Vital [...] inferior wall. She was brought to cardiac high density press laborer. Her angiogram showed a 50 % lesion [...] inferior wall. She was brought to cardiac high density press laborer. Her angiogram showed a 50 % lesion [...] inferior wall. She was brought to cardiac high density press laborer. Her angiogram showed a 50 % lesion [...] woman with a cardiomyopathy, recent admission to [facility] with CHF and inferior ischemiaadmitted post HUOG to proximal and mid RCA (toal occlusion) [...] 05/08/2012 11:18 AM ESTAssociated Order(s): SCAN DOC: PATIENT ATTENDANT * Provider, Scanning - 05/06/2012 11:20 AM ESTAssociated Order(s): CARDIAC CATHETERIZATION documented in this encounter Miscellaneous Notes * Miscellaneous - Provider, Scanning - 05/08/2012 11:18 AM EST * Miscellaneous - Provider, Scanning - 05/08/2012 11:18 AM EST * Discharge Summary - Cipriano Morales - 05/06/2012 11:26 AM EST Inpatient Cardiology - Discharge Summary Patient Name: Stacy PAULN: [id number] Patient Age: 56 y.o. Birthdate: 1955 Admit [...] inferior wall. She was brought to cardiac high density press laborer. Her angiogram showed a 50 % lesion [...] 10:30 AM EDT Appointment [place] [address] [place] [address] 10/17/2023 11:40 AM EDT Office Visit Cardiology at [address] [phone] [place] [address] 11/15/2023 10:00 AM EDT Hospital Encounter Non[place] [address] Arrived 11/21/2023 1:40 PM EDT Office Visit Cardiology at [address] [address] Lea Hodges MD [facility] [place] [address] Scheduled Orders Name Type Priority Associated Diagnoses Orde r Schedule EKG 12 Lead ECG Routine Other primary cardiomyopathies One Time for 1 Occurrences starting 05/06/2012 until 05/06/2012 documented as of this encounter Procedures Procedure Name Priority Date/Time Associated Diagnosis Comments PATIENT ATTENDANT SCAN 05/08/2012 11:18 AM EST CARDIAC CATH SCAN 05/08/2012 11: 18 AM EST BMP W/FASTING GLUCOSE Routine 05/07/2012 3:34 AM EST DIFFERENTIAL, AUTOMATED Routine 05/07/2012 3:34 AM EST CARDIAC ENZYMES [place] Routine 05/07/2012 3:34 AM EST CBC (WITH DIFF) Routine 05/07/2012 3:34 AM EST EKG 12-LEAD Routine 05/06/2012 12:01 PM EST Other primary cardiomyopathies CARDIAC ENZYMES ([facility] STAT 05/06/2012 11:30 AM EST CARDIAC CATHETERIZATION Routine 05/06/2012 10:54 AM EST CARDIAC CATHETERIZATION 05/06/2012 7:50 AM EST CAD documented in this encounter Results * SCAN DOC: PATIENT ATTENDANT (05/08/2012 11:18 AM EST) Anatomical Region Laterality [...] EST Raoul Martin MD HEMATOLOGY ORDERABLE S [facility] * BMP w/fasting Glucose (05/07/2012 3:34 AM EST) Glucose Fasting 94 65 - 99 mg/dL [facility] Comment: ?Fasting* Glucose Interpretive Criteria Normal [...] of Diabetes Mellitus, Position Statement from the [place] Diabetes Association. ??Diabetes Care, Volume 33, Supplement 1, Mar 2009 BUN 18 8 - 18 mg/dL CERNER MILLENNIUM Creatinine 0.75 0.70 - 1.20 mg/dL CERNER MILLENNIUM Comment: Please note that the pediatric reference intervals supplied above were not validated at [facility]. Results from pediatric patients should be interpreted [...] diabetic kidney disease. References: http://nkdep.nih.gov/resources/NKDEP_Suggestn4Labs_0606_508.pdf http://www.kidney.org/professionals/kls/pdf/faq_gfr.pdf Edmond K, Carl NA, Baron AK, Param TS, Goldie AD, Taya СЕРГЕЙ. Relative performance of the MDRD and CKD-EPI equations for estimating glomerular filtration rate among patients with varied clinical presentations. Clin J Am Soc Nephrol;6:1963-72. Blood specimen (specimen) 05/07/2012 3:34 AM EST 05/07/2012 3:50 AM EST Narrative Resulting Agency Comment Spec In Lab Raoul Martin MD CHEMISTRY ORDERABLES Performing Organization Address [facility] de Phone Number [facility] * Cardiac Enzymes (05/07/2012 3:34 AM EST) Troponin-T <0.03 <=0.03 ng/mL [facility] [employer] Comment: 0.03 ng/mL: Represents the 99th percentile upper reference limit for normals. >0.03 ng/mL: Elevated cardiac troponin T level indicative of myocardial damage. Diagnosis of acute, evolving or recent LA requires a typical rise and gradual fall [...] consensus document of the Joint Society of Cardiology/[place] College of Cardiology Committee for the redefinition of myocardial infarction. Journal of the [place] College of Cardiology 2000; 36: 959-969] CK, Total 48 0 - 160 unit/L [facility] Blood specimen (specimen) 05/07/2012 3:34 AM EST 05/07/2012 3:50 AM EST Narrative Resulting Agency Comment Spec In Lab Raoul Martin MD CHEMISTRY ORDERABLES Performing Organization Address [facility] de Phone Number [facility]SA [email or web address] * (ABNORMAL) CBC (with Diff) (05/07/2012 3:34 AM EST) Pathologist [facility] WBC 10.0 4.0 - 10.0 x10(3)/mcL CERNER MILLENNIUM RBC 4.22 3.93 - 5.22 x10(6)/mcL CERNER MILLENNIUM Hemoglobin 12.6 11.2 - 15.7 gm/dL CERNER MILLENNIUM Hematocrit 38.2 34.0 - 45.0 % CERNER MILLENNIUM MCV 90.5 79.0 - 94.0 fL RAYSA MILLENNIUM MCH 29.9 26.6 - 32.2 pg RAYSA MILLENNIUM MCHC 33.0 32.0 - 36.5 gm/dL CERJEN MILLENNIUM Platelets 232 145 - 370 x10(3)/mcL CERJEN MILLENNIUM RDWSD 61.4(H) 35.0 - 46.0 fL RAYSA MILLENNIUM RDWCV 18.5(H) 10.9 - 14.4 % RAYSA MILLENNIUM MPV 9.0 9.0 - 12.0 fL RAYSA BILLSENNIUM Blood specimen (specimen) 05/07/2012 3:34 AM EST 05/07/2012 3:50 AM EST Narrative Resulting Agency Comment Spec In Lab Raoul Martin MD HEMATOLOGY ORDERABLE S Performing Organization Address City/[facility]/ZIP Co de Phone Number RAYSA MURDOCK * EKG 12 Lead (05/06/2012 12:01 PM EST) Ventricular rate 68 BPM MUSE SYSTEM Atrial Rate 68 BPM MUSE SYSTEM P-R Interval 192 ms MUSE SYSTEM QRS Duration 108 ms MUSE SYSTEM Q-T Interval 430 ms MUSE SYSTEM QTC Calculated (Bezet) 457 ms MUSE SYSTEM Calculated P Huntington 71 degrees MUSE SYSTEM Calculated R Huntington 23 degrees MUSE SYSTEM Calculated T Huntington 119 degrees MUSE SYSTEM INTERPRETATION Normal sinus rhythm Possible Left atrial enlargement ST & T wave abnormality, consider anterolateral ischemia Abnormal ECG No previous ECGs available Confirmed by MD Yahir, Lew ([id number]) on 05/06/2012 4:17:48 PM MUSE SYSTEM 05/06/2012 12:0 1 PM EST 05/06/2012 4:17 PM EST Raoul Martin MD ECG ORDERABLES Performing Organization Address City/[facility]/ZIP Co de Phone Number MUSE SYSTEM * Cardiac Enzymes (05/06/2012 11:30 AM EST) Troponin-T <0.03 <=0.03 ng/mL RAYSA MURDOCK Comment: 0.03 ng/mL: Represents the 99th percentile upper reference limit for normals. >0.03 ng/mL: Elevated cardiac troponin T level indicative of myocardial damage. Diagnosis of acute, evolving or recent LA requires a typical rise and gradual fall [...] consensus document of the Joint Society of Cardiology/[place] College of Cardiology Committee for the redefinition of myocardial infarction. Journal of the [place] College of Cardiology 2000; 36: 959-969] CK, [...] LES documented in this encounter Visit Diagnoses Not [...] Given 05/06/2012 4:30 PM EST 81 mg bivalirudin (ANGIOMAX) 250 mg in sodium chloride 0.9% 50 mL infusion (ROLLWAY MAN) CONTINUOUS PRN, Starting on Sat05/06/12 at 0914, Until Sat05/06/12 at 1053, Cath (Intra-Procedure), Routine New Bag 05/06/2012 9:14 AM EST 1.75 mg/kg/hr 23.5 mL/hr Left Arm bivalirudin (ANGIOMAX) injection ONCE PRN, Starting on Sat05/06/12 at 0910, Until Sat05/06/12 at 1135, Intra-Operative (Intra-Procedure), Routine Given 05/06/2012 9:10 AM EST 50.3 mg Left Arm clopidogrel (PLAVIX) tablet 75 mg 75 mg, Oral, DAILY, First dose on Sat05/07/12 at 0900, Until Discontinued, Routine Given 05/07/2012 9:00 AM EST 75 mg clopidogrel (PLAVIX) tablet ONCE PRN, Starting on Sat05/06/12 at 0904, Until Sat05/06/12 at 1135, Intra-Operative (Intra-Procedure), Routine Given 05/06/2012 9:04 AM EST 600 mg diaZEPam (VALIUM) tablet 5 mg 5 [...] Given 05/07/2012 7:00 AM EST 80 mg iohexol (OMNIPAQUE) 350 mg iodine/mL injection ONCE PRN, Starting on Sat05/06/12 at 1051, Until Sat05/06/12 at 1053, Per Protocol, Cath (Intra-Procedure), Routine Given 05/06/2012 10:51 AM EST 160 mLs levothyroxine (SYNTHROID) tablet 50 mcg 50 mcg, [...] Given 05/06/2012 4:30 PM EST 1 tablet nitroGLYCerin 100 mcg/mL intracoronary dilution ONCE PRN, Starting on Sat05/06/12 at 1012, Until Sat05/06/12 at 1053, Cath (Intra-Procedure), Routine Given 05/06/2012 10:12 AM EST 100 mcg riboflavin tablet 100 mg 100 mg, Oral, [...] mL/hr 200 mL/hr sodium chloride 0.9% infusion CONTINUOUS PRN, Starting on Sat05/06/12 at 0948, Until Sat05/06/12 at 1053, Cath (Intra-Procedure) Rate/Dose Change 05/06/2012 10:51 AM EST 300 mLs New Bag 05/06/2012 9:48 AM EST 200 mLs sodium chloride 0.9% infusion 75 mL/hr, Intravenous, [...] Routine 0900 (Given - Provid er: Oscar Maynrad RN) diaZEPam (VALIUM) tablet 5 mg (COMPLETED) 5 mg, Oral, ONCE, 1 dose, On Sat05/06/12 at 0745, Cath (Day of Procedure), Routine 0744 (Given - Provider: Gypsy Day RN) digoxin (LANOXIN) tablet 125 mcg (CANCELED) 125 mcg, Oral, DAILY, First dose on Sat05/07/12 at 0900, Until Discontinued, Routine 09 (Given - Provid er: Oscar Maynard RN) [...] [id number] (New Bag - Provider: Chelsea Holland, NIESHA) PRN Medication Order 05/05/2012 05/06/2012 05/07/2012 bivalirudin (ANGIOMAX) 250 mg in sodium chloride 0.9% 50 mL infusion (ROLLWAY MAN) (CANCELED) CONTINUOUS PRN, Starting on Sat05/06/12 at [...]
--- OUTSIDE RECORDS SUMMARY | 2023-10-16 01:27 | XMS_ITS | Encounter Summary ---
Author Organization [facility] Address [address] [place] [address] Care Team Providers Care Plaster Block Layer Name Role Phone Angela Cotto MD Primary Care Provider [phone] Encounter Details Date Type Department Care Team (Late st Contact Info) Description 04/29/2023 [facility] [address] [place] [address] Oleg Trinidad MD [address] [place] [address] Heart failure, unspecified HF chronicity, unspecified heart failure type (HCC-CMS) (Primary Dx) Social History Tobacco Use Types [...] BNP 54 <221 pg/mL 04/29/2023 13:18 EST [facility] Comment: In the acute setting NT-proBNP values <300 pg/mL have a 98% NPV for excluding acute heart failure. In outpatient populations, NT-proBNP values <125 have a 99% NPV for excluding heart failure. Blood VENOUS BLOOD / Unknown Venipuncture / Unknown 04/29/2023 12:42 EST 04/29/2023 12:42 EST Oleg Trinidad MD CHEMISTRY & BLOOD GA S ORDERABLES Performing Organization Address City/State/[facility] Co de Phone Number [facility] [address] [place] [address] documented in this encounter Visit Diagnoses Diagnosis Heart failure, unspecified HF chronicity, unspecified heart failure type ([facility]-CMS)- Primary documented in this encounter Care Teams Plaster Block Layer Relationship Specialty Start Date End Date Angela Cotto MD [address] [place] [phone] PCP - General Family Medicine - Primary Care 10/26/20 documented as of this encounter
--- OUTSIDE RECORDS SUMMARY | 2023-10-16 01:27 | XMS_ITS | Encounter Summary ---
Author Organization [facility] Address [address] [place] [address] Care Team Providers Care Extension Work Instructor Name Role Phone Angela Cotto MD Primary Care Provider [phone] Encounter Details Date Type Department Care Team (Late st Contact Info) Description 06/12/2022 Results Only [facility] Laboratory Services - [facility] [address] [place] [address] Oleg Trinidad MD [address] [place] [phone] Social History Tobacco Use Types Packs/Day [...] Date/Time Associated Diagnosis Comments BASIC METABOLIC PANEL (BMP) Routine 09/05/2022 11:59 EDT documented in this encounter Results * (ABNORMAL) BASIC METABOLIC PANEL (BMP) (09/05/2022 11:59 EDT) Glucose 132.00(H) 70.00 - 100.00 mg/dL [facility] Bun 26.00(H) 7.00 - 20.00 mg/dL [facility] Creatinine 1.10 0.70 - 1.50 mg/dL [facility] GFR, Calculated 49.4(A) [facility] Comment: Chronic renal impairment is defined as GFR <60 Multiply result by 1.210 for patients eGFR calculated using the IDMS-traceable MDRD study Sodium 139.00 137.00 - 145.00 mmol/L [facility] Potassium 4.60 3.50 - 5.10 mmol/L [facility] Chloride 100.00 98.00 - 107.00 mmol/L [facility] Carbon Dioxide 30.00 22.00 - 30.00 mmol/L [facility] Calcium 9.40 8.50 - 10.50 mg/dL [facility] Anion Gap 9 7 - 17 mmol/L [facility] 09/05/2022 11:5 9 EDT Oleg Trinidad MD CHEMISTRY & BLOOD GA S ORDERABLES [facility] [address] [place] [address] documented in this encounter Visit Diagnoses Not on filedocumented in this encounter Care Teams Extension Work Instructor Relationship Specialty Start Date End Date Angela Cotto MD [address] [place] [phone] PCP - General Family Medicine - Primary Care 10/26/20 documented as of this encounter
--- OUTSIDE RECORDS SUMMARY | 2023-10-16 01:27 | XMS_ITS | Encounter Summary ---
Author Organization [facility] Address [address] [place] [address] Care Team Providers Care Mixing Picker Tender Name Role Phone Angela Cotto MD Primary Care Provider Encounter Details Date Type Department Care Team (Late st Contact Info) Description 02/20/2023 Results Only [facility] Laboratory Services - [facility] [address] [place] [address] Oleg Trinidad MD [address] [place] [phone] Social History Tobacco Use Types Packs/Day [...] Procedure Name Priority Date/Time Associated Diagnosis Comments HEMOGLOBIN A1C Routine 02/20/2023 9:40 EST documented in this encounter Results * (ABNORMAL) HEMOGLOBIN A1C (02/20/2023 9:40 EST) HgB A1C% 5.9 4.0 - 6.0 % [facility] Average Calculated 116(H) 60 - 115 mg/dL [facility] 02/20/2023 9:40 EST Oleg Trinidad MD CHEMISTRY & BLOOD GA S ORDERABLES [facility] [address] [place] [address] documented in this encounter Visit Diagnoses Not on filedocumented in this encounter Care Teams Mixing Picker Tender Relationship Specialty Start Date End Date Angela Cotto MD [address] [place] [phone] PCP - General Family Medicine - Primary Care 10/26/20 documented as of this encounter
--- OUTSIDE RECORDS SUMMARY | 2023-10-16 01:27 | XMS_ITS | Encounter Summary ---
Author Organization [facility] Address [address] [place] [address] Care Team Providers Care Chemistry Physics Teacher Name Role Phone Angela Cotto MD Primary Care Provider [phone] Encounter Details Date Type Department Care Team (Late st Contact Info) Description 02/12/2023 Results Only [facility] Laboratory Services - [facility] [address] [place] [address] Oleg Trinidad MD [address] [place] [phone] Social History Tobacco Use Types Packs/Day [...] Associated Diagnosis Comments VITAMIN D (25,OH) Routine 02/12/2023 12: 15 EST documented in this encounter Results * VITAMIN D (25,OH) (02/12/2023 12:15 EST) Vitamin D 56 30 - 100 ng/ml [facility] 02/12/2023 12:1 5 EST Oleg Trinidad MD CHEMISTRY & BLOOD GA S ORDERABLES [facility] [address] [place] [address] documented in this encounter Visit Diagnoses Not on filedocumented in this encounter Care Teams Chemistry Physics Teacher Relationship Specialty Start Date End Date Angela Cotto MD [address] [place] [phone] PCP - General Family Medicine - Primary Care 10/26/20 documented as of this encounter
--- OUTSIDE RECORDS SUMMARY | 2023-10-16 01:27 | XMS_ITS | Encounter Summary ---
Author Organization [facility] Address [address] [place] [address] Care Team Providers Care Systems Mechanic Name Role Phone Angela Cotto MD Primary Care Provider [phone] Encounter Details Date Type Department Care Team (Late st Contact Info) Description 04/29/2023 [facility] [address] [place], [place] [phone] Estefania Cotton, WEATHER ANALYST [address] [place], [place] [phone] Social History Tobacco Use Types Packs/Day Years [...] on filedocumented in this encounter Care Teams Systems Mechanic Relationship Specialty Start Date End Date Angela Cotto MD [address] [place] [phone] PCP - General Family Medicine - Primary Care 10/26/20 documented as of this encounter
--- OUTSIDE RECORDS SUMMARY | 2023-10-16 01:27 | XMS_ITS | Encounter Summary ---
Author Organization [facility] Address [address] [place] [address] Care Team Providers Care Industrial X Ray Operator Name Role Phone Angela Cotto MD Primary Care Provider [phone] Encounter Details Date Type Department Care Team (Latest Contact Info) Description 09/05/2022 14:10 EDT - 09/05/2022 23:59 EDT Hospital Encounter [facility] Lab - Main [place] [address] [place] [phone] Senior Billing Consultant, [facility] Discharge Disposition: Home or Self Care [...] on filedocumented in this encounter Care Teams Industrial X Ray Operator Relationship Specialty Start Date End Date Angela Cotto MD [address] [place] [phone] PCP - General Family Medicine - Primary Care 10/26/20 documented as of this encounter
--- OUTSIDE RECORDS SUMMARY | 2023-10-16 01:28 | XMS_ITS | Encounter Summary ---
Author Organization [facility] Address [address] [place] [address] Care Team Providers Care Spectral Scientist Name Role Phone Angela Cotto MD Primary Care Provider [phone] Encounter Details Date Type Department Care Team (Late st Contact Info) Description 05/03/[address] [facility] Laboratory Services - [facility] [address] [place] [address] Oleg Trinidad MD [address] [place] [phone] Social History Tobacco Use Types Packs/Day [...] Priority Date/Time Associated Diagnosis Comments TSH Routine 05/03/2022 7:00 EST documented in this encounter Results * TSH (05/03/2022 7:00 EST) TSH 2.84 0.45 - 5.33 uIU/mL [facility] 05/03/2022 7:00 EST Oleg Trinidad MD CHEMISTRY & BLOOD GA S ORDERABLES Performing Organization Address City/State/[facility] Co de Phone Number [facility] [address] [place] [address] documented in this encounter Visit Diagnoses Not on filedocumented in this encounter Care Teams Spectral Scientist Relationship Specialty Start Date End Date Angela Cotto MD [address] [place] [phone] PCP - General Family Medicine - Primary Care 10/26/20 documented as of this encounter
--- OUTSIDE RECORDS SUMMARY | 2023-10-16 01:28 | XMS_ITS | Encounter Summary ---
Author Organization [facility] Address [address] [place] [address] Care Team Providers Care Fruit Dumper Name Role Phone Angela Cotto MD Primary Care Provider [phone] Encounter Details Date Type Department Care Team (Late st Contact Info) Description 05/25/2021 Results Only [facility] Laboratory Services - [facility] [address] [place] [address] Angela Cotto MD [address] [place] [phone] Social History Tobacco Use Types Packs/Day [...] Priority Date/Time Associated Diagnosis Comments MAGNESIUM Routine 05/25/2021 10:24 EST documented in this encounter Results * MAGNESIUM (05/25/2021 10:24 EST) Magnesium 1.80 1.60 - 2.30 mg/dL [facility] 05/25/2021 10:2 4 EST Angela Cotto MD CHEMISTRY & BLOOD GA S ORDERABLES [facility] [address] [place] [address] documented in this encounter Visit Diagnoses Not on filedocumented in this encounter Care Teams Fruit Dumper Relationship Specialty Start Date End Date Angela Cotto MD [address] [place] [phone] PCP - General Family Medicine - Primary Care 10/26/20 documented as of this encounter
--- OUTSIDE RECORDS SUMMARY | 2023-10-16 01:28 | XMS_ITS | Encounter Summary ---
Author Organization [facility] Address [address] [place] [address] Care Team Providers Care Concrete Carpenter Name Role Phone Angela Cotto MD Primary Care Provider [phone] Encounter Details Date Type Department Care Team (Latest Contact Info) Description 08/01/2021 13:34 EDT - 08/01/2021 23:59 EDT Hospital Encounter [facility] Lab - Main [place] [address] [place] [phone] Farmworker Poultry, [facility] Discharge Disposition: Home or Self Care [...] filedocumented in this encounter Care Teams Concrete Carpenter Relationship Specialty Start Date End Date Angela Cotto MD [address] [place] [phone] PCP - General Family Medicine - Primary Care 10/26/20 documented as of this encounter
--- OUTSIDE RECORDS SUMMARY | 2023-10-16 01:28 | XMS_ITS | Encounter Summary ---
Author Organization [facility] Address [address] [place] [address] Care Team Providers Care Care Management Specialist Name Role Phone Angela Cotto MD Primary Care Provider [phone] Encounter Details Date Type Department Care Team (Late st Contact Info) Description 05/03/2022 Results Only [facility] Laboratory Services - [facility] [address] [place] [address] Oleg Trinidad MD [address] [place] [phone] Social History Tobacco Use Types Packs/Day [...] Diagnosis Comments COMPREHENSIVE METABOLIC PANEL (CMP) Routine 05/03/2022 7:00 EST documented in this encounter Results * (ABNORMAL) COMPREHENSIVE METABOLIC PANEL (CMP) (05/03/2022 7:00 EST) Glucose 103.00(H) 70.00 - 100.00 mg/dL [facility] Bun 21.00(H) 7.00 - 20.00 mg/dL [facility] Creatinine 1.00 0.70 - 1.50 mg/dL [facility] GFR, Calculated 55.3(A) [facility] Comment: Chronic renal impairment is defined as GFR <60 Multiply result by 1.210 for patients eGFR calculated using the IDMS-traceable MDRD study Sodium 143.00 137.00 - 145.00 mmol/L [facility] Potassium 5.30(H) 3.50 - 5.10 mmol/L [facility] Chloride 106.00 98.00 - 107.00 mmol/L [facility] Carbon Dioxide 28.00 22.00 - 30.00 mmol/L [facility] Calcium 9.60 8.50 - 10.50 mg/dL [facility] Anion Gap 9 7 - 17 mmol/L [facility] Total Protein 7.30 6.30 - 8.20 g/dL [facility] Albumin 4.60 3.50 - 5.00 g/dL [facility] Total Bilirubin 0.40 0.20 - 1.30 mg/dL [facility] AST/SGOT 18.00 15.00 - 46.00 U/L [facility] ALT/SGPT 15.00 0.00 - 35.00 U/L [facility] ALK 93.00 38.00 - 126.00 U/L [facility] 05/03/2022 7:00 EST Oleg Trinidad MD CHEMISTRY & BLOOD GA S ORDERABLES [facility] [address] [place] [address] documented in this encounter Visit Diagnoses Not on filedocumented in this encounter Care Teams Care Management Specialist Relationship Specialty Start Date End Date Angela Cotto MD [address] [place] [phone] PCP - General Family Medicine - Primary Care 10/26/20 documented as of this encounter
--- OUTSIDE RECORDS SUMMARY | 2023-10-16 01:28 | XMS_ITS | Encounter Summary ---
Author Organization [facility] Address [address] [place] [address] Care Team Providers Care Square Dance Caller Name Role Phone Angela Cotto MD Primary Care Provider [phone] Reason for Visit * Reason Onset Date Comments Other 02/17/2021 Encounter Details Date Type Department Care Team (Late st Contact Info) Description 02/17/2021 Telephone [facility] [address] [place] [address] Gerry Hall MD [address] [place] [address] [place] [phone] Other Social History Tobacco Use Types Packs/Day Years [...] No 02/15/2021 documented as of this encounter Miscellaneous Notes * Telephone Encounter - Alexis Dorantes RN - 02/22/2021 1009 EST Medication list faxed from PCP office. Medication list updated. * Telephone Encounter - Alexis Dorantes RN - 02/20/2021 1708 EST Patient was seen last week in office. Has scheduled Cardiac C[facility] 02/21/21 at [facility]. Will want to wait until results of cath are known prior to addressing question of home oxygen therapy. * Telephone Encounter - Nick Portillo - 02/20/2021 1511 EST pts daughter calling to see about oxygen for pt. Araseli says that patient has ordered O2 off [employer] this seems to help with pts SOB. Daughter is wondering if pt would benefit from O2 and who might facilitate an rx for this. She would like a call back to discuss. documented in this encounter Plan of Treatment Not on file documented as of this encounter Visit Diagnoses Not on filedocumented in this encounter Historical Medications * This list may reflect changes made after this encounter. Medication Sig Dispensed Refills Start Date End Date ergocalciferol (DRISDOL; VITAMIN D2) 1,250 mcg (50,000 unit) capsule Take 50,000 Units by mouth once a week. MULTIVITAMIN ORAL Take 1 Tablet by mouth daily. metFORMIN (GLUCOPHAGE) 1,000 mg tablet Take 1,000 mg by mouth 2 times daily with breakfast and dinner. EPINEPHrine (EPIPEN) 0.3 mg/0.3 mL injectionIndications:glen ent at risk of anaphylaxis Inject 0.3 mg into the muscle once as needed for Other (for allergic reaction). nitroglycerin (NITROSTAT) 0.[address] 0.4 mg under the tongue every 5 minutes as needed for Chest Pain. allopurinoL (ZYLOPRIM) 100 mg tablet Take 100 mg by mouth daily. colchicine (COLCRYS) 0.6 mg tablet Take 0.6 mg by mouth daily. naproxen (NAPROSYN) 500 mg tablet Take 500 mg by mouth 2 times daily with breakfast and dinner. liothyronine (CYTOMEL) 25 mcg tablet Take 12.5 mcg by mouth daily. nicotine (NICODERM CQ) 21 mg/[address] 1 Patch onto the skin every 24 hours. cyclobenzaprine (FLEXERIL) 10 mg tablet Take 5 mg by mouth 3 times daily as needed for Muscle Spasms. added in this encounter Care Teams Square Dance Caller Relationship Specialty Start Date End Date Angela Cotto MD [address] [place] [phone] PCP - General Family Medicine - Primary Care 10/26/20 documented as of this encounter
--- OUTSIDE RECORDS SUMMARY | 2023-10-16 01:28 | XMS_ITS | Encounter Summary ---
Author Organization [facility] Address [address] [place] [address] Care Team Providers Care Die Casting Machine Maintainer Name Role Phone Angela Cotto MD Primary Care Provider [phone] Encounter Details Date Type Department Care Team (Late st Contact Info) Description 04/18/2022 Results Only [facility] Laboratory Services - [facility] [address] [place] [address] Rhonda Doshi, PA [address] [place] [phone] Social History Tobacco Use Types Packs/Day [...] Procedure Name Priority Date/Time Associated Diagnosis Comments BUPRENORPHINE TOTAL Routine 04/18/2022 9 :15 EST documented in this encounter Results * BUPRENORPHINE TOTAL (04/18/2022 9:15 EST) Buprenorphine NEG NEGATIVE [facility] 04/18/2022 9:15 EST Rhonda BENTLEY CHEMISTRY & BLOOD GA S ORDERABLES Performing Organization Address City/State/[facility] Co de Phone Number [facility] [address] [place] [address] documented in this encounter Visit Diagnoses Not on filedocumented in this encounter Care Teams Die Casting Machine Maintainer Relationship Specialty Start Date End Date Angela Cotto MD [address] [place] [phone] PCP - General Family Medicine - Primary Care 10/26/20 documented as of this encounter
--- OUTSIDE RECORDS SUMMARY | 2023-10-16 01:28 | XMS_ITS | Encounter Summary ---
Author Organization [facility] Address [address] [place] [address] Care Team Providers Care Line Repairer Name Role Phone Angela Cotto MD Primary Care Provider [phone] Encounter Details Date Type Department Care Team (Late st Contact Info) Description 04/05/2021 Results Only [facility] Laboratory Services - [facility] [address] [place] [address] Oleg Trinidad MD [address] [place] [phone] Social History Tobacco Use Types Packs/Day [...] Procedure Name Priority Date/Time Associated Diagnosis Comments T3 FREE Routine 04/05/2021 9:50 EST documented in this encounter Results * (ABNORMAL) T3 FREE (04/05/2021 9:50 EST) Free T3 2.21(L) 2.40 - 4.00 pg/mL [facility] Comment:The results of this assay can be falsely elevated due to the consumption of Biotin 04/05/2021 9:50 EST Oleg Trinidad MD CHEMISTRY & BLOOD GA S ORDERABLES [facility] [address] [place] [address] documented in this encounter Visit Diagnoses Not on filedocumented in this encounter Care Teams Line Repairer Relationship Specialty Start Date End Date Angela Cotto MD [address] [place] [phone] PCP - General Family Medicine - Primary Care 10/26/20 documented as of this encounter
--- OUTSIDE RECORDS SUMMARY | 2023-10-16 01:28 | XMS_ITS | Encounter Summary ---
Author Organization [facility] Address [address] [place] [address] Care Team Providers Care Secy Name Role Phone Angela Cotto MD Primary Care Provider [phone] Encounter Details Date Type Department Care Team (Late st Contact Info) Description 04/12/2021 Results Only [facility] Laboratory Services - [facility] [address] [place] [address] Oleg Trinidad MD [address] [place] [phone] Social History Tobacco Use Types Packs/Day [...] Date/Time Associated Diagnosis Comments HEMOGLOBIN A1C Routine 04/12/2021 9:32 EST documented in this encounter Results * (ABNORMAL) HEMOGLOBIN A1C (04/12/2021 9:32 EST) HgB A1C% 6.1(H) 4.0 - 6.0 % [facility] Average Calculated 123(H) 60 - 115 mg/dL [facility] 04/12/2021 9:32 EST Oleg Trinidad MD CHEMISTRY & BLOOD GA S ORDERABLES [facility] [address] [place] [address] documented in this encounter Visit Diagnoses Not on filedocumented in this encounter Care Teams Secy Relationship Specialty Start Date End Date Angela Cotto MD [address] [place] [phone] PCP - General Family Medicine - Primary Care 10/26/20 documented as of this encounter
--- OUTSIDE RECORDS SUMMARY | 2023-10-16 01:28 | XMS_ITS | Encounter Summary ---
Author Organization [facility] Address [address] [place] [address] Care Team Providers Care Fire Assistant Name Role Phone Angela Cotto MD Primary Care Provider [phone] Encounter Details Date Type Department Care Team (Latest Contact Info) Description 01/30/2022 13:21 EST - 01/30/2022 23:59 [facility] Hospital Encounter [facility] Lab - Main [place] [address] [place] [phone] Apprenticeship Training Representative, [facility] Discharge Disposition: Home or Self Care [...] on filedocumented in this encounter Care Teams Fire Assistant Relationship Specialty Start Date End Date Angela Cotto MD [address] [place] [phone] PCP - General Family Medicine - Primary Care 10/26/20 documented as of this encounter
--- OUTSIDE RECORDS SUMMARY | 2023-10-16 01:28 | XMS_ITS | Encounter Summary ---
Author Organization [facility] Address [address] [place] [address] Care Team Providers Care Spiral Winder Name Role Phone Angela Cotto MD Primary Care Provider [phone] Encounter Details Date Type Department Care Team (Late st Contact Info) Description 02/15/2021 15:30 EST Phlebotomy Only [facility] - Outpatient Phlebotomy Drawing [address] [place] [address] Lab, [facility] Op Phlebotomy ACC/AHA stage C heart failure with reduced ejection fraction (HCC-CMS) (HCC); SOB (shortness of breath) Social History Tobacco Use Types Packs/Day Years [...] Date/Time Associated Diagnosis Comments COMPLETE BLOOD COUNT AND DIFFERENTIAL Routine 02/15/2021 15:37 EST ACC/AHA stage C heart failure with reduced ejection fraction (HCC-CMS) (HCC) URIC ACID Routine 02/15/2021 15:37 EST ACC/AHA stage C heart failure with reduced ejection fraction (HCC-CMS) (HCC) NT PRO BNP Routine 02/15/2021 15:37 EST ACC/AHA stage C heart failure with reduced ejection fraction (HCC-CMS) (HCC) SOB (shortness of breath) MAGNESIUM Routine 02/15/2021 15:37 EST ACC/AHA stage C heart failure with reduced ejection fraction (HCC-CMS) (HCC) COMPREHENSIVE METABOLIC PANEL (CMP) Routine 02/15/2021 15:37 EST ACC/AHA stage C heart failure with reduced ejection fraction (HCC-CMS) (HCC) documented in this encounter Results * (ABNORMAL) URIC ACID (02/15/2021 15:37 EST) Uric Acid 10.5(H) 2.2 - 7.7 mg/dL 02/15/2021 17:20 EST [facility] Blood VENOUS BLOOD / Unknown Venipuncture / Unknown 02/15/2021 15:37 EST 02/15/2021 16:40 EST Gerry Hall MD CHEMISTRY & BLOOD GA S ORDERABLES [facility] [address] [place] [address] * (ABNORMAL) COMPREHENSIVE METABOLIC PANEL (CMP) (02/15/2021 15:37 EST) Pathologist [facility] Sodium 141 136 - 145 mmol/L 02/15/2021 17:20 EST [facility] Potassium 4.2 3.5 - 5.0 mmol/L 02/15/2021 17:20 EST [facility] Chloride 101 96 - 110 mmol/L 02/15/2021 17:20 [facility] CO2 Total 27 22 - 32 mmol/L 02/15/2021 17:20 [facility] Glucose 104(H) 70 - 100 mg/dL 02/15/2021 17:20 [facility] BUN 21 10 - 26 mg/dL 02/15/2021 17:20 [facility] Creatinine 0.93 0.52 - 1.04 mg/dL 02/15/2021 17:20 [facility] eGFR 64 >60 mL/min/1.7 3m2 02/15/2021 17:20 [facility] Total Protein 6.7 6.3 - 8.2 g/dL 02/15/2021 17:20 [facility] Albumin 4.2 3.4 - 4.9 g/dL 02/15/2021 17:20 [facility] Alkaline Phosphatase 73 38 - 126 U/L 02/15/2021 17:20 [facility] AST 29 15 - 46 U/L 02/15/2021 17:20 [facility] ALT 37(H) <35 U/L 02/15/2021 17:20 [facility] Bilirubin, Total 0.7 <1.4 mg/dL 02/16/20 17:20 [facility] Calcium 9.2 8.5 - 10.5 mg/dL 02/15/2021 17:20 [facility] Albumin/Globulin Ratio 1.7 1.0 - 2.5 02/15/2021 17:20 [facility] Anion Gap 13 8 - 16 02/15/2021 17:20 [facility] Blood VENOUS BLOOD / Unknown Venipuncture / Unknown 02/15/2021 15:37 EST 02/15/2021 16:40 EST Gerry Hall MD CHEMISTRY & BLOOD GA S ORDERABLES [facility] [address] [place] [address] * (ABNORMAL) COMPLETE BLOOD COUNT AND DIFFERENTIAL (02/15/2021 15:37 [facility]) WBC 12.00 4.00 - 12.40 K/cmm 02/15/2021 16:38 [facility] RBC 4.78 3.86 - 5.04 M/cmm 02/15/2021 16:38 [facility] Hemoglobin 14.5 11.6 - 15.2 gm/dL 02/15/2021 16:38 [facility] HCT 43.6 34.9 - 44.4 % 02/15/2021 16:38 [facility] MCV 91 81 - 98 fl 02/15/2021 16:38 [facility] MCH 30.3 26.7 - 33.3 pg 02/15/2021 16:38 [facility] MCHC 33.3 32.1 - 35.9 gm/dL 02/15/2021 16:38 [facility] RDW-CV 13.9 <14.7 % 02/15/2021 16:38 [facility] RDW-SD 46.3 <50.4 fl 02/15/2021 16:38 [facility] PLT 323 141 - 377 K/cmm 02/15/2021 16:38 [facility] MPV 9.2(L) 9.5 - 12.7 fl 02/15/2021 16:38 [facility] % Neutrophils 60.0 % 02/15/2021 16:38 [facility] % Lymphocytes 28.8 % 02/15/2021 16:38 [facility] % Monocytes 8.8 % 02/15/2021 16:38 [facility] % Eosinophils 1.2 % 02/15/2021 16:38 [facility] % Basophils 0.8 % 02/15/2021 16:38 [facility] % Immature Grans 0.4 % 02/16/20 16:38 [facility] Absolute Neutrophils 7.22 2.20 - 8.85 K/cmm 02/15/2021 16:38 [facility] Absolute Lymphocytes 3.45(H) 1.09 - 3.30 K/cmm 02/15/2021 16:38 [facility] Absolute Monocytes 1.05(H) 0.10 - 0.80 K/cmm 02/15/2021 16:38 [facility] Absolute Eosinophils 0.14 0.03 - 0.61 K/cmm 02/15/2021 16:38 [facility] ABS Basophils 0.09 0.01 - 0.11 K/cmm 02/15/2021 16:38 [facility] Absolute Immature Grans 0.05 0.00 - 0.06 K/cmm 02/15/2021 16:38 [facility] Type of Differential: Auto 02/15/2021 16:38 [facility] Blood VENOUS BLOOD / Unknown Venipuncture / Unknown 02/15/2021 15:37 EST 02/15/2021 16:34 EST Gerry Hall MD PACKAGES & DNA PROBE ORDERABLES Performing Organization Address [facility] Co de Phone Number [facility] [address] [place] [address] * (ABNORMAL) NT PRO BNP (02/15/2021 15:37 EST) Pathologist [facility] NT-pro BNP 3,820(H) <125 pg/mL 02/15/2021 17:30 EST [facility] Comment:The results of this assay can be falsely lowered due to consumption of Biotin. Blood VENOUS BLOOD / Unknown Venipuncture / Unknown 02/15/2021 15:37 EST 02/15/2021 16:40 EST Gerry Hall MD CHEMISTRY & BLOOD GA S ORDERABLES Performing Organization Address [facility]/ZIP Co de Phone Number [facility] [address] [place] [address] * (ABNORMAL) MAGNESIUM (02/15/2021 15:37 EST) Pathologist [facility] Magnesium 1.6(L) 1.7 - 2.8 mg/dL 02/15/2021 17:20 EST [facility] Blood VENOUS BLOOD / Unknown Venipuncture / Unknown 02/15/2021 15:37 EST 02/15/2021 16:40 EST Gerry Hall MD CHEMISTRY & BLOOD GA S ORDERABLES [facility] [address] [place] [address] documented in this encounter Visit Diagnoses Diagnosis ACC/AHA stage C heart failure with reduced ejection fraction (HCC-CMS) SOB (shortness of breath) Shortness of breath documented in this encounter Care Teams Spiral Winder Relationship Specialty Start Date End Date Angela Cotto MD [address] [place] [phone] PCP - General Family Medicine - Primary Care 10/26/20 documented as of this encounter
--- OUTSIDE RECORDS SUMMARY | 2023-10-16 01:28 | XMS_ITS | Encounter Summary ---
Author Organization [facility] Address [address] [place] [address] Care Team Providers Care Pump Station Operator Name Role Phone Angela Cotto MD Primary Care Provider [phone] Encounter Details Date Type Department Care Team (Late st Contact Info) Description 04/05/2021 Results Only [facility] Laboratory Services - [facility] [address] [place] [address] Oleg Trinidad MD [address] [place] [phone] Social History Tobacco Use Types Packs/Day [...] Procedure Name Priority Date/Time Associated Diagnosis Comments T4 FREE Routine 04/05/2021 9:50 EST documented in this encounter Results * T4 FREE (04/05/2021 9:50 EST) FT4 1.05 0.58 - 1.64 ng/dL [facility] Comment:The results of this assay can be falsely elevated due to the consumption of Biotin 04/05/2021 9:50 EST Oleg Trinidad MD CHEMISTRY & BLOOD GA S ORDERABLES [facility] [address] [place] [address] documented in this encounter Visit Diagnoses Not on filedocumented in this encounter Care Teams Pump Station Operator Relationship Specialty Start Date End Date Angela Cotto MD [address] [place] [phone] PCP - General Family Medicine - Primary Care 10/26/20 documented as of this encounter
--- OUTSIDE RECORDS SUMMARY | 2023-10-16 01:28 | XMS_ITS | Encounter Summary ---
Author Organization [facility] Address [address] [place] [address] Care Team Providers Care Director Of Early Childhood Name Role Phone Angela Cotto MD Primary Care Provider [phone] Encounter Details Date Type Department Care Team (Late st Contact Info) Description 03/12/2022 [facility] [address] [place] [address] Oleg Trinidad MD [address] [place] [address] Chronic systolic heart failure (HCC-CMS) (Primary Dx) Social History Tobacco Use [...] as of this encounter Results * (ABNORMAL) BASIC METABOLIC PANEL (BMP) (03/12/2022 8:39 EST) Sodium 139 136 - 145 mmol/L 03/12/2022 15:17 [facility] Potassium 4.7 3.5 - 5.0 mmol/L 03/12/2022 15:17 [facility] Chloride 103 96 - 110 mmol/L 03/12/2022 15:17 [facility] CO2 Total 26 22 - 32 mmol/L 03/12/2022 15:17 [facility] Anion Gap 10 5 - 14 03/12/2022 15:17 [facility] Glucose 113(H) 70 - 100 mg/dL 03/12/2022 15:17 [facility] Calcium 9.1 8.5 - 10.5 mg/dL 03/12/2022 15:17 [facility] BUN 18 10 - 26 mg/dL 03/12/2022 15:17 [facility] Creatinine 0.86 0.52 - 1.04 mg/dL 03/12/2022 15:17 [facility] eGFR 74 >60 mL/min/1.73 m2 03/12/2022 15:17 [facility] Blood VENOUS BLOOD / Unknown Venipuncture / Unknown 03/12/2022 8:39 EST 03/12/2022 14:23 EST Oleg Trinidad MD CHEMISTRY & BLOOD GA S ORDERABLES [facility] [address] [place] [address] documented in this encounter Visit Diagnoses Diagnosis Chronic systolic heart failure (HCC-CMS)- Primary Chronic systolic heart failure documented in this encounter Care Teams Director Of Early Childhood Relationship Specialty Start Date End Date Angela Cotto MD [address] [place] [address] PCP - General Family Medicine - Primary Care 10/26/20 documented as of this encounter
--- OUTSIDE RECORDS SUMMARY | 2023-10-16 01:28 | XMS_ITS | Encounter Summary ---
Author Organization [facility] Address [address] [place] [address] Care Team Providers Care Gravity Prospector Name Role Phone Angela Cotto MD Primary Care Provider [phone] Encounter Details Date Type Department Care Team (Latest Contact Info) Description 04/05/2021 14:57 EST - 04/05/2021 23:59 EST Hospital Encounter [facility] - Main [place] [address] [place] [address] [employer], [facility] Discharge Disposition: [...] Muscle Spasms. EPINEPHrine (EPIPEN) 0.3 mg/0.3 mL injectionIndications:p atient at risk of anaphylaxis Inject 0.3 mg [...] 5 minutes as needed for Chest Pain. losartan (COZAAR) 25 mg tablet Take 1 Tablet by mouth daily for 90 days. 90 Tablet 3 02/15/2021 05/16/2021 metoprolol SUCCinate (TOPROL-XL) 50 mg tablet Take 1 Tablet by mouth 2 times daily for 90 days. 180 Tablet 3 02/15/2021 05/16/2021 documented as of this encounter Discharge Disposition Disposition Code Departure Means Destination Home or Self Care documented in this encounter Plan of Treatment Not on file documented as of this encounter Visit Diagnoses Not on filedocumented in this encounter Care Teams Gravity Prospector Relationship Specialty Start Date End Date Angela Cotto MD [address] [place] [phone] PCP - General Family Medicine - Primary Care 10/26/20 documented as of this encounter
--- OUTSIDE RECORDS SUMMARY | 2023-10-16 01:28 | XMS_ITS | Encounter Summary ---
Author Organization [facility] Address [address] [place] [address] Care Team Providers Care Staffing Clerk Name Role Phone Angela Cotto MD Primary Care Provider [phone] Encounter Details Date Type Department Care Team (Latest Contact Info) Description 05/25/2021 13:19 EST - 05/25/2021 23:59 EST Hospital Encounter [facility] - Main [place] [address] [place] [id number] [employer], [facility] Discharge Disposition: Home or Self Care [...] on filedocumented in this encounter Care Teams Staffing Clerk Relationship Specialty Start Date End Date Angela Cotto MD [address] [place] [phone] PCP - General Family Medicine - Primary Care 10/26/20 documented as of this encounter
--- OUTSIDE RECORDS SUMMARY | 2023-10-16 01:28 | XMS_ITS | Encounter Summary ---
Author Organization [facility] Address [address] [place] [address] Care Team Providers Care Director Of Patient Care Name Role Phone Angela Cotto MD Primary Care Provider [phone] Encounter Details Date Type Department Care Team (Late st Contact Info) Description 05/25/2021 [facility] [address] [place] [address] Oleg Trinidad MD [address] [place] [address] Gout, unspecified cause, unspecified chronicity, unspecified site (Primary Dx) Social History Tobacco Use Types [...] Procedure Name Priority Date/Time Associated Diagnosis Comments URIC ACID Routine 05/25/2021 9:15 EST Gout, unspecified cause, unspecified chronicity, unspecified site documented in this encounter Results * URIC ACID (05/25/2021 9:15 EST) Uric Acid 7.2 2.2 - 7.7 mg/dL 05/25/2021 14:06 EST [facility] Blood VENOUS BLOOD / Unknown Venipuncture / Unknown 05/25/2021 9:15 EST 05/25/2021 13:20 EST Oleg Trinidad MD CHEMISTRY & BLOOD GA S ORDERABLES Performing Organization Address City/State/[facility] Co de Phone Number [facility] [address] [place] [address] documented in this encounter Visit Diagnoses Diagnosis Gout, unspecified cause, unspecified chronicity, unspecified site- Primary documented in this encounter Care Teams Director Of Patient Care Relationship Specialty Start Date End Date Angela Cotto MD [address] [place] [phone] PCP - General Family Medicine - Primary Care 10/26/20 documented as of this encounter
--- OUTSIDE RECORDS SUMMARY | 2023-10-16 01:28 | XMS_ITS | Encounter Summary ---
Author Organization [facility] Address [address] [place] [address] Care Team Providers Care Canal Boat Operator Name Role Phone Angela Cotto MD Primary Care Provider [phone] Encounter Details Date Type Department Care Team (Late st Contact Info) Description 10/20/2021 Results Only [facility] Laboratory Services - [facility] [address] [place] [address] Oleg Trinidad MD [address] [place] [phone] Social History Tobacco Use Types Packs/Day [...] Date/Time Associated Diagnosis Comments HEMOGLOBIN A1C Routine 10/20/2021 8:20 EDT documented in this encounter Results * (ABNORMAL) HEMOGLOBIN A1C (10/20/2021 8:20 EDT) HgB A1C% 5.9 4.0 - 6.0 % [facility] Average Calculated 116(H) 60 - 115 mg/dL [facility] 10/20/2021 8:20 EDT Oleg Trinidad MD CHEMISTRY & BLOOD GA S ORDERABLES [facility] [address] [place] [address] documented in this encounter Visit Diagnoses Not on filedocumented in this encounter Care Teams Canal Boat Operator Relationship Specialty Start Date End Date Angela Cotto MD [address] [place] [phone] PCP - General Family Medicine - Primary Care 10/26/20 documented as of this encounter
--- OUTSIDE RECORDS SUMMARY | 2023-10-16 01:28 | XMS_ITS | Encounter Summary ---
Author Organization [facility] Address [address] [place] [address] Care Team Providers Care Discharge Planner Name Role Phone Angela Cotto MD Primary Care Provider [phone] Encounter Details Date Type Department Care Team (Latest Contact Info) Description 01/30/2022 [facility] [address] [place] [address] Oleg Trinidad MD [address] [place] [address] Primary cardiomyopathy (HCC-CMS) (Primary Dx); Vitamin D deficiency Social History Tobacco Use Types Packs/Day Years [...] documented as of this encounter Results * VITAMIN D (25,OH) (01/30/2022 8:51 EST) 25OH Vitamin D Tot 55 30 - 100 ng/mL 01/30/2022 13:58 [facility] Blood VENOUS BLOOD / Unknown Venipuncture / Unknown 01/30/2022 8:51 EST 01/30/2022 13:21 EST Oleg Trinidad MD CHEMISTRY & BLOOD GA S ORDERABLES [facility] [address] [place] [address] * (ABNORMAL) BASIC METABOLIC PANEL (BMP) (01/30/2022 8:51 EST) Pathologist [facility] Sodium 143 136 - 145 mmol/L 01/30/2022 13:36 [facility] Potassium 5.1(H) 3.5 - 5.0 mmol/L 01/30/2022 13:36 [facility] Chloride 101 96 - 110 mmol/L 01/30/2022 13:36 [facility] CO2 Total 29 22 - 32 mmol/L 01/30/2022 13:36 [facility] Anion Gap 13 5 - 14 01/30/2022 13:36 [facility] Glucose 97 70 - 100 mg/dL 01/30/2022 13:36 [facility] Calcium 9.5 8.5 - 10.5 mg/dL 01/30/2022 13:36 [facility] BUN 16 10 - 26 mg/dL 01/30/2022 13:36 [facility] Creatinine 0.92 0.52 - 1.04 mg/dL 01/30/2022 13:36 [facility] eGFR 68 >60 mL/min/1.73 m2 01/30/2022 13:36 [facility] Blood VENOUS BLOOD / Unknown Venipuncture / Unknown 01/30/2022 8:51 EST 01/30/2022 13:21 EST Oleg Trinidad MD CHEMISTRY & BLOOD GA S ORDERABLES [facility] [address] [place] [address] documented in this encounter Visit Diagnoses Diagnosis Primary cardiomyopathy (HCC-CMS)- Primary Other primary cardiomyopathies Vitamin D deficiency Unspecified vitamin D deficiency documented in this encounter Care Teams Discharge Planner Relationship Specialty Start Date End Date Angela Cotto MD [address] [place] [phone] PCP - General Family Medicine - Primary Care 10/26/20 documented as of this encounter
--- OUTSIDE RECORDS SUMMARY | 2023-10-16 01:28 | XMS_ITS | Encounter Summary ---
Author Organization [facility] Address [address] [place] [address] Care Team Providers Care Knot Tying Operator Name Role Phone Angela Cotto MD Primary Care Provider [phone] Encounter Details Date Type Department Care Team (Late st Contact Info) Description 05/03/2022 Results Only [facility] Laboratory Services - [facility] [address] [place] [address] Oleg Trinidad MD [address] [place] [phone] Social History Tobacco Use Types Packs/Day [...] Date/Time Associated Diagnosis Comments T3 FREE Routine 05/03/2022 7:00 EST documented in this encounter Results * T3 FREE (05/03/2022 7:00 EST) Free T3 2.83 2.40 - 4.00 pg/mL [facility] Comment:The results of this assay can be falsely elevated due to the consumption of Biotin 05/03/2022 7:00 EST Oleg Trinidad MD CHEMISTRY & BLOOD GA S ORDERABLES Performing Organization Address City/State/[facility] Co de Phone Number [facility] [address] [place] [address] documented in this encounter Visit Diagnoses Not on filedocumented in this encounter Care Teams Knot Tying Operator Relationship Specialty Start Date End Date Angela Cotto MD [address] [place] [phone] PCP - General Family Medicine - Primary Care 10/26/20 documented as of this encounter
--- OUTSIDE RECORDS SUMMARY | 2023-10-16 01:28 | XMS_ITS | Encounter Summary ---
Author Organization [facility] Address [address] [place] [address] Care Team Providers Care Special Crimes Investigator Name Role Phone Angela Cotto MD Primary Care Provider [phone] Encounter Details Date Type Department Care Team (Late st Contact Info) Description 08/01/2021 [facility] [address] [place] [address] Oleg Trinidad MD [address] [place] [phone] Gout, unspecified cause, unspecified chronicity, [...] Date/Time Associated Diagnosis Comments URIC ACID Routine 08/01/2021 8:58 EDT Gout, unspecified cause, unspecified chronicity, unspecified site documented in this encounter Results * URIC ACID (08/01/2021 8:58 EDT) Uric Acid 4.6 2.2 - 7.7 mg/dL 08/01/2021 14:04 EDT [facility] Blood VENOUS BLOOD / Unknown Venipuncture / Unknown 08/01/2021 8:58 EDT 08/01/2021 13:34 EDT Oleg Trinidad MD CHEMISTRY & BLOOD GA S ORDERABLES Performing Organization Address City/State/[facility] Co de Phone Number [facility] [address] [place] [address] documented in this encounter Visit Diagnoses Diagnosis Gout, unspecified cause, unspecified chronicity, unspecified site- Primary documented in this encounter Care Teams Special Crimes Investigator Relationship Specialty Start Date End Date Angela Cotto MD [address] [place] [phone] PCP - General Family Medicine - Primary Care 10/26/20 documented as of this encounter
--- OUTSIDE RECORDS SUMMARY | 2023-10-16 01:28 | XMS_ITS | Encounter Summary ---
Author Organization [facility] Address [address] [place] [address] Care Team Providers Care Racing Secretary Name Role Phone Angela Cotto MD Primary Care Provider [phone] Encounter Details Date Type Department Care Team (Late st Contact Info) Description 04/05/2021 Results Only [facility] [address] [place] [address] Oleg Trinidad MD [address] [place] [phone] Social History Tobacco Use Types Packs/Day [...] Priority Date/Time Associated Diagnosis Comments TSH Routine 04/05/2021 9:50 EST documented in this encounter Results * TSH (04/05/2021 9:50 EST) TSH 4.61 0.45 - 5.33 uIU/mL [facility] 04/05/2021 9:50 EST Oleg Trinidad MD CHEMISTRY & BLOOD GA S ORDERABLES Performing Organization Address City/State/[facility] Co de Phone Number [facility] [address] [place] [address] documented in this encounter Visit Diagnoses Not on filedocumented in this encounter Care Teams Racing Secretary Relationship Specialty Start Date End Date Angela Cotto MD [address] [place] [phone] PCP - General Family Medicine - Primary Care 10/26/20 documented as of this encounter
--- OUTSIDE RECORDS SUMMARY | 2023-10-16 01:28 | XMS_ITS | Encounter Summary ---
Author Organization [facility] Address [address] [place] [address] Care Team Providers Care Drying And Winding Supervisor Name Role Phone Angela Cotto MD Primary Care Provider [phone] Encounter Details Date Type Department Care Team (Late st Contact Info) Description 08/01/2021 Results Only [facility] Laboratory Services - [facility] [address] [place] [address] Oleg Trinidad MD [address] [place] [phone] Social History Tobacco Use Types Packs/Day [...] Diagnosis Comments COMPREHENSIVE METABOLIC PANEL (CMP) Routine 08/01/2021 9:11 EDT documented in this encounter Results * (ABNORMAL) COMPREHENSIVE METABOLIC PANEL (CMP) (08/01/2021 9:11 EDT) Glucose 109.00(H) 70.00 - 100.00 mg/dL [facility] Bun 17.00 7.00 - 20.00 mg/dL [facility] Creatinine 0.90 0.70 - 1.50 mg/dL [facility] GFR, Calculated >60 [facility] Comment: Chronic renal impairment is defined as GFR <60 Multiply result by 1.210 for patients eGFR calculated using the IDMS-traceable MDRD study Sodium 140.00 137.00 - 145.00 mmol/L [facility] Potassium 4.90 3.50 - 5.10 mmol/L [facility] Chloride 102.00 98.00 - 107.00 mmol/L [facility] Carbon Dioxide 27.00 22.00 - 30.00 mmol/L [facility] Calcium 10.00 8.50 - 10.50 mg/dL [facility] Anion Gap 11 7 - 17 mmol/L [facility] Total Protein 7.60 6.30 - 8.20 g/dL [facility] Albumin 4.90 3.50 - 5.00 g/dL [facility] Total Bilirubin 0.70 0.20 - 1.30 mg/dL [facility] AST/SGOT 22.00 15.00 - 46.00 U/L [facility] ALT/SGPT 16.00 0.00 - 35.00 U/L [facility] ALK 75.00 38.00 - 126.00 U/L [facility] 08/01/2021 9:11 EDT Oleg Trinidad MD CHEMISTRY & BLOOD GA S ORDERABLES [facility] [address] [place] [address] documented in this encounter Visit Diagnoses Not on filedocumented in this encounter Care Teams Drying And Winding Supervisor Relationship Specialty Start Date End Date Angela Cotto MD [address] [place] [phone] PCP - General Family Medicine - Primary Care 10/26/20 documented as of this encounter
--- OUTSIDE RECORDS SUMMARY | 2023-10-16 01:28 | XMS_ITS | Encounter Summary ---
Author Organization [facility] Address [address] [place] [address] Care Team Providers Care Diesel Engineer Name Role Phone Angela Cotto MD Primary Care Provider [phone] Encounter Details Date Type Department Care Team (Late st Contact Info) Description 05/03/2022 Results Only [facility] Laboratory Services - [facility] [address] [place] [address] Oleg Trinidad MD [address] [place] [phone] Social History Tobacco Use Types Packs/Day [...] Date/Time Associated Diagnosis Comments HEMOGLOBIN A1C Routine 05/03/2022 7:00 EST documented in this encounter Results * HEMOGLOBIN A1C (05/03/2022 7:00 EST) HgB A1C% 5.8 4.0 - 6.0 % [facility] Average Calculated 113 60 - 115 mg/dL [facility] 05/03/2022 7:00 EST Oleg Trinidad MD CHEMISTRY & BLOOD GA S ORDERABLES Performing Organization Address City/State/[facility] Co de Phone Number [facility] [address] [place] [address] documented in this encounter Visit Diagnoses Not on filedocumented in this encounter Care Teams Diesel Engineer Relationship Specialty Start Date End Date Angela Cotto MD [address] [place] [phone] PCP - General Family Medicine - Primary Care 10/26/20 documented as of this encounter
--- OUTSIDE RECORDS SUMMARY | 2023-10-16 01:28 | XMS_ITS | Encounter Summary ---
Author Organization [facility] Address [address] [place] [address] Care Team Providers Care Business Analytics Director Name Role Phone Angela Cotto MD Primary Care Provider [phone] Encounter Details Date Type Department Care Team (Latest Contact Info) Description 10/20/2021 [facility] [address] [place] [address] Oleg Trinidad MD [address] [place] [phone] Disease of cardiovascular system (Primary Dx); Hypothyroidism, unspecified type; Congestive heart failure, unspecified HF chronicity, unspecified heart failure type (HCC-CMS) (HCC); Pure hypercholesterolemia; Gout, unspecified cause, unspecified chronicity, unspecified site Social History Tobacco Use Types Packs/Day Years [...] Date/Time Associated Diagnosis Comments LDL, DIRECT Today 10/20/2021 6:49 EDT Pure hypercholesterolemia URIC ACID Routine 10/20/2021 6:49 EDT Gout, unspecified cause, unspecified chronicity, unspecified site TSH Routine 10/20/2021 6:49 EDT Hypothyroidism, unspecified type NT PRO BNP Routine 10/20/2021 6:49 EDT Congestive heart failure, unspecified HF chronicity, unspecified heart failure type (FORMERLY [facility]) (HCC) LIPID PROFILE (INCLUDES CHOLESTEROL, TRIGLYCERIDES, HDL, LDL) Routine 10/20/2021 6:49 EDT Pure hypercholesterolemia COMPREHENSIVE METABOLIC PANEL (CMP) Routine 10/20/2021 6:49 EDT Disease of cardiovascular system documented in this encounter Results * LDL, DIRECT (10/20/2021 6:49 EDT) LDL, Direct <30 <160 mg/dL 10/20/2021 14:15 EDT [facility] Comment: LDL, Direct Reference Ranges: Optimal: Less than 100 mg/dL Above Optimal: 100-129 mg/dL Borderline High: 130-159 mg/dL High: 160-189 mg/dL Very High: Greater than or equal to 190 mg/dL Blood VENOUS BLOOD / Unknown Venipuncture / Unknown 10/20/2021 6:49 EDT 10/20/2021 12:27 EDT Oleg Trinidad MD CHEMISTRY & BLOOD GA S ORDERABLES [facility] [address] [place] [address] * URIC ACID (10/20/2021 6:49 EDT) Pathologist [facility] Uric Acid 3.8 2.2 - 7.7 mg/dL 10/20/2021 13:53 T [facility] Blood VENOUS BLOOD / Unknown Venipuncture / Unknown 10/20/2021 6:49 EDT 10/20/2021 12:27 EDT Oleg Trinidad MD CHEMISTRY & BLOOD GA S ORDERABLES Performing Organization Address City/State/[facility] Co de Phone Number [facility] [address] [place] [address] * (ABNORMAL) LIPID PROFILE (INCLUDES CHOLESTEROL, TRIGLYCERIDES, HDL, LDL) (10/20/2021 6:49 EDT) [facility] Cholesterol 81 <200 mg/dL 10/20/2021 13:53 [facility] Comment:Note that therapeuti c goals will differ between patients based on cardiac risk factors and current medical therapy. HDL 36(L) >=50 mg/dL 10/20/2021 13:53 [facility] Comment:Note that therapeuti c goals will differ between patients based on cardiac risk factors and current medical therapy. LDL, Calculated <20 <160 mg/dL 13:53 [facility] Comment: Note that therapeutic goals will differ between patients based on cardiac risk factors and current medical therapy. Calculated LDL invalid (<20 mg/dL) Direct LDL measurement added by reflex. Triglyceride 154(H) <=150 mg/dL 10/20/2021 13:53 [facility] Comment:Note that therapeuti c goals will differ between patients based on cardiac risk factors and current medical therapy. Chol/HDL Ratio 2.3 See Note 10/20/2021 13:53 [facility] Comment: NOTE: Desirable Ratio = <4.1 Patient At Risk Ratio = >5.0(Males) ?>6.0(Females) Non HDL Cholesterol 45 <160 mg/dL 10/20/2021 13:53 [facility] Comment:Note that therapeuti c goals will differ between patients based on cardiac risk factors and current medical therapy. Blood VENOUS BLOOD / Unknown Venipuncture / Unknown 10/20/2021 6:49 EDT 10/20/2021 12:27 EDT Oleg Trinidad MD CHEMISTRY & BLOOD GA S ORDERABLES Performing Organization Address [facility]/ZIP Co de Phone Number [facility] [address] [place] [address] * (ABNORMAL) NT PRO BNP (10/20/2021 6:49 EDT) NT-pro BNP 1,130(H) <125 pg/mL 10/20/2021 14:27 EDT [facility] Comment:The results of this assay can be falsely lowered due to consumption of Biotin. Blood VENOUS BLOOD / Unknown Venipuncture / Unknown 10/20/2021 6:49 EDT 10/20/2021 12:27 EDT Oleg Trinidad MD CHEMISTRY & BLOOD GA S ORDERABLES Performing Organization Address [facility] Co de Phone Number [facility] [address] [place] [address] * TSH (10/20/2021 6:49 EDT) [facility] TSH 3.79 0.47 - 4.68 mIU/L 10/20/2021 14:27 EDT [facility] Blood VENOUS BLOOD / Unknown Venipuncture / Unknown 10/20/2021 6:49 EDT 10/20/2021 12:27 EDT Narrative [facility] - 10/20/2021 14:27 EDT The results of this assay can be falsely lowered due to the consumption of Biotin. Oleg Trinidad MD CHEMISTRY & BLOOD GA S ORDERABLES Performing Organization Address [facility]/ZIP Co de Phone Number [facility] [address] [place] [address] * COMPREHENSIVE METABOLIC PANEL (CMP) (10/20/2021 6:49 EDT) Sodium 142 136 - 145 mmol/L 10/20/2021 13:53 [facility] Potassium 4.7 3.5 - 5.0 mmol/L 10/20/2021 13:53 [facility] Chloride 103 96 - 110 mmol/L 10/20/2021 13:53 [facility] CO2 Total 26 22 - 32 mmol/L 10/20/2021 13:53 [facility] Glucose 93 70 - 100 mg/dL 10/20/2021 13:53 [facility] BUN 19 10 - 26 mg/dL 10/20/2021 13:53 [facility] Creatinine 0.89 0.52 - 1.04 mg/dL 10/20/2021 13:53 [facility] eGFR 71 >60 mL/min/1.7 3m2 10/20/2021 13:53 [facility] Total Protein 7.2 6.3 - 8.2 g/dL 10/20/2021 13:53 [facility] Albumin 4.8 3.4 - 4.9 g/dL 10/20/2021 13:53 [facility] Alkaline Phosphatase 64 38 - 126 U/L 10/20/2021 13:53 [facility] AST 22 15 - 46 U/L 10/20/2021 13:53 [facility] ALT 14 <35 U/L 10/20/2021 13:53 [facility] Bilirubin, Total 0.4 <1.4 mg/dL 10/21/19 13:53 [facility] Calcium 9.3 8.5 - 10.5 mg/dL 10/20/2021 13:53 [facility] Albumin/Globulin Ratio 2.0 1.0 - 2.5 10/20/2021 13:53 [facility] Anion Gap 13 5 - 14 10/20/2021 13:53 [facility] Blood VENOUS BLOOD / Unknown Venipuncture / Unknown 10/20/2021 6:49 EDT 10/20/2021 12:27 EDT Oleg Trinidad MD CHEMISTRY & BLOOD GA S ORDERABLES [facility] [address] [place] [address] documented in this encounter Visit Diagnoses Diagnosis Disease of cardiovascular system- Primary Unspecified cardiovascular disease Hypothyroidism, unspecified type Congestive heart failure, unspecified HF chronicity, unspecified heart failure type ([facility]ERLY [facility]) Pure hypercholesterolemia Gout, unspecified cause, unspecified chronicity, unspecified site documented in this encounter Care Teams Business Analytics Director Relationship Specialty Start Date End Date Angela Cotto MD [address] [place] [phone] PCP - General Family Medicine - Primary Care 10/26/20 documented as of this encounter
--- OUTSIDE RECORDS SUMMARY | 2023-10-16 01:28 | XMS_ITS | Encounter Summary ---
Author Organization [facility] Address [address] [place] [address] Care Team Providers Care Area Supervisor Name Role Phone Angela Cotto MD Primary Care Provider [phone] Encounter Details Date Type Department Care Team (Latest Contact Info) Description 03/12/2022 14:23 EST - 03/12/2022 23:59 EST Hospital Encounter [facility] - Main [place] [address] [place] [phone] Fast Food Server, [facility] Discharge Disposition: Home or Self Care [...] on filedocumented in this encounter Care Teams Area Supervisor Relationship Specialty Start Date End Date Angela Cotto MD [address] [place] [phone] PCP - General Family Medicine - Primary Care 10/26/20 documented as of this encounter
--- OUTSIDE RECORDS SUMMARY | 2023-10-16 01:28 | XMS_ITS | Encounter Summary ---
Author Organization [facility] Address [address] [place] [address] Care Team Providers Care Inventory Transcriber Name Role Phone Angela Cotto MD Primary Care Provider [phone] Encounter Details Date Type Department Care Team (Late st Contact Info) Description 04/05/2021 Results Only [facility] Laboratory Services - [facility] [address] [place] [address] Oleg Trinidad MD [address] [place] [phone] Social History Tobacco Use Types Packs/Day [...] Diagnosis Comments BASIC METABOLIC PANEL (BMP) Routine 05/25/2021 10:24 EST documented in this encounter Results * (ABNORMAL) BASIC METABOLIC PANEL (BMP) (05/25/2021 10:24 EST) Glucose 108.00(H) 70.00 - 100.00 mg/dL [facility] Bun 20.00 7.00 - 20.00 mg/dL [facility] Creatinine 1.20 0.70 - 1.50 mg/dL [facility] Estimated GFR 44.9(A) [facility] Comment: Chronic renal impairment is defined as GFR <60 Multiply result by 1.210 for patients eGFR calculated using the IDMS-traceable MDRD study Sodium 139.00 137.00 - 145.00 mmol/L [facility] Potassium 4.70 3.50 - 5.10 mmol/L [facility] Chloride 102.00 98.00 - 107.00 mmol/L [facility] Carbon Dioxide 27.00 22.00 - 30.00 mmol/L [facility] Calcium 9.70 8.50 - 10.50 mg/dL [facility] Anion Gap 10 7 - 17 mmol/L [facility] 05/25/2021 10:2 4 EST Angela Cotto MD CHEMISTRY & BLOOD GA S ORDERABLES [facility] [address] [place] [address] documented in this encounter Visit Diagnoses Not on filedocumented in this encounter Care Teams Inventory Transcriber Relationship Specialty Start Date End Date Angela Cotto MD [address] [place] [phone] PCP - General Family Medicine - Primary Care 10/26/20 documented as of this encounter
--- OUTSIDE RECORDS SUMMARY | 2023-10-16 01:28 | XMS_ITS | Encounter Summary ---
Author Organization [facility] Address [address] [place] [address] Care Team Providers Care Hebrew Teacher Name Role Phone Angela Cotto MD Primary Care Provider [phone] Reason for Referral * Radiology Services (Routine/Next Available) - Authorization Not Required Specialty Diagnoses / Procedures Referred By Contac t Referred To Contact Diagnoses ACC/AHA stage C heart failure with reduced ejection fraction (HCC-CMS) SOB (shortness of breath) Procedures XR CHEST 2 VIEWS Gerry Hall MD [address] [place] [phone] [facility] Referral ID Status Reason Start Date Expiration Date Visits Requested Visits Authorized [id number] Authorization Not Required 1 1 1 Reason for Visit * Radiology Services (Routine/Next Available) - Authorization Not Required Specialty Diagnoses / Procedures Referred By Contac t Referred To Contact Diagnoses ACC/AHA stage C heart failure with reduced ejection fraction (HCC-CMS) SOB (shortness of breath) Procedures XR CHEST 2 VIEWS Gerry Hall MD [address] [place] [address] [phone] [facility] Referral ID Status Reason Start Date Expiration Date Visits Requested Visits Authorized [id number] Authorization Not Required 1 1 1 Encounter Details Date Type Department Care Team (Latest Contact Info) Description 02/15/2021 15:24 EST - 02/15/2021 23:59 EST Hospital Encounter [facility] Xray [address] [place] [address] ACC/AHA stage C heart failure with reduced ejection fraction (HCC-CMS) (HCC); SOB (shortness of breath) Discharge Disposition: Home or Self Care Social [...] mg tablet 1 tablet orally as needed aspirin 81 mg EC tablet 1 tab(s) orally once a day atorvastatin (LIPITOR) 80 mg tablet Take 80 mg by mouth daily. cholecalciferol (VITAMIN D3) 1,250 mcg (50,000 unit) capsule 1 cap(s) orally month Coenzyme Q10 100 mg capsule 1 cap(s) orally once a day furosemide (LASIX) 80 mg tablet 1 tab am,1/2 tab pm orally twice daily levothyroxine sodium (LEVOTHYROXINE ORAL) Take by mouth. Unsure dosage losartan (COZAAR) 25 mg tablet Take 1 [...] Procedure Name Priority Date/Time Associated Diagnosis Comments XR CHEST 2 VIEWS Routine 02/15/2021 15:5 8 EST ACC/AHA stage C heart failure with reduced ejection fraction (HCC-CMS) (HCC) SOB (shortness of breath) documented in this encounter Results * XR CHEST 2 VIEWS (02/15/2021 15:58 EST) Anatomical Region Laterality Modality Computed Radiogr aphy 02/15/2021 16:0 0 EST Impressions 02/15/2021 16:00 EST 1. Pronounced cardiac enlargement, with suspected edema. Narrative 02/15/2021 16:00 EST INDICATION: sob TECHNIQUE: ??Chest, PA and lateral views COMPARISON: 04/30/2012. FINDINGS: The heart is severely enlarged. There are Ann B lines. No effusion is seen. No pneumothorax is detected. No lobar pneumonia is detected. Procedure Note Cheng Arias MD - 02/15/2021 INDICATION: sob TECHNIQUE: Chest, PA and lateral views COMPARISON: 04/30/2012. FINDINGS: The heart is severely enlarged. There are Ann B lines. Noeffusion is seen. No pneumothorax is detected. No lobar pneumonia isdetected. IMPRESSION 1. Pronounced cardiac enlargement, with suspected edema. Gerry Hall MD IMG DIAGNOSTIC IMAGI NG ORDERABLES documented in this encounter Visit Diagnoses Diagnosis ACC/AHA stage C heart failure with reduced ejection fraction (HCC-CMS) SOB (shortness of breath) Shortness of breath documented in this encounter Care Teams Hebrew Teacher Relationship Specialty Start Date End Date Angela Cotto MD [address] [place] [phone] PCP - General Family Medicine - Primary Care 10/26/20 documented as of this encounter
--- OUTSIDE RECORDS SUMMARY | 2023-10-16 01:28 | XMS_ITS | Encounter Summary ---
Author Organization [facility] Address [address] [place] [address] Care Team Providers Care Plunger Scoop Operator Name Role Phone Angela Cotto MD Primary Care Provider [phone] Encounter Details Date Type Department Care Team (Late st Contact Info) Description 05/03/2022 Results Only [facility] Laboratory Services - [facility] [address] [place] [address] Oleg Trinidad MD [address] [place] [phone] Social History Tobacco Use Types Packs/Day [...] Date/Time Associated Diagnosis Comments T4 FREE Routine 05/03/2022 7:00 EST documented in this encounter Results * T4 FREE (05/03/2022 7:00 EST) FT4 1.07 0.58 - 1.64 ng/dL [facility] Comment:The results of this assay can be falsely elevated due to the consumption of Biotin 05/03/2022 7:00 EST Oleg Trinidad MD CHEMISTRY & BLOOD GA S ORDERABLES [facility] [address] [place] [address] documented in this encounter Visit Diagnoses Not on filedocumented in this encounter Care Teams Plunger Scoop Operator Relationship Specialty Start Date End Date Angela Cotto MD [address] [place] [phone] PCP - General Family Medicine - Primary Care 10/26/20 documented as of this encounter
--- OUTSIDE RECORDS SUMMARY | 2023-10-16 01:28 | XMS_ITS | Encounter Summary ---
Author Organization [facility] Address [address] [place] [address] Care Team Providers Care Reading Intervention Teacher Name Role Phone Angela Cotto MD Primary Care Provider [phone] Encounter Details Date Type Department Care Team (Late st Contact Info) Description 02/22/2021 Orders Only [facility] [address] [place] [address] Alexis Dorantes RN Ischemic cardiomyopathy (Primary Dx) Social History Tobacco Use Types [...] Procedure Name Priority Date/Time Associated Diagnosis Comments ECG REPORT - SCANNED 02/23/2021 20:25 EST EKG 12-LEAD Routine 02/15/2021 14:28 EST Ischemic cardiomyopathy documented in this encounter Results * ECG REPORT - SCANNED (02/23/2021 20:25 EST) 02/23/2021 20:2 5 EST Scan 2 Grain Loader PROCEDURE/MINOR ALETA GICAL ORDERABLES * EKG 12-LEAD (02/15/2021 14:28 EST) 02/15/2021 14:2 8 EST Narrative [facility] - 02/23/2021 20:20 EST ? CVC ? Test Date: ?2021-02-15 Pat Name: ? STACY STOKES ?Department: ? Room: ? Gender: ? Female ? Program Production Specialist: ?? KP : ?1955 ? Requested By: EVA STEVENSON Order Number: [id number] ? Kendell PARKER: ?? ALBA SHIELDS MD ? Measurements Intervals ?[place] ? Rate: ? 116 ?P: ?72 [place]: ? 142 ?QRS: ?-9 QRSD: ? 112 ?T: ?105 QT: ? 339 ? QTc: ?422 ? Interpretive Statements Sinus tachycardia Possible Left atrial enlargement Anterolateral infarct , age undetermined No previous ECG available for comparison I reviewed the tracing and have either agreed or edited the findings in this report. Electronically Signed On 02-23-2021 20:20:17 EST by ALBA SHIELDS MD. Procedure Note Alba Shields MD - 02/23/2021 CVC Test Date: 2021-02-15 Pat Name: STACY STOKES Department: Room: Gender: Female Program Production Specialist: MAGDA : 1955 Requested By: EVA STEVENSON Order Number: [id number] Reading MD: ALBA SHIELDS MD Measurements Intervals [place] Rate: 116 P: 72 [place]: 142 QRS: -9 QRSD: 112 T: 105 QT: 339 QTc: 422 Interpretive Statements Sinus tachycardia Possible Left atrial enlargement Anterolateral infarct , age undetermined No previous ECG available for comparison I reviewed the tracing and have either agreed or edited the findings inthis report. Electronically Signed On 02-23-2021 20:20:17 EST by ALBA BOLAÑOS. Gerry Hall MD CARDIAC ECG ORDERABL ES [facility] documented in this encounter Visit Diagnoses Diagnosis Ischemic cardiomyopathy- Primary Other specified forms of chronic ischemic heart disease documented in this encounter Care Teams Reading Intervention Teacher Relationship Specialty Start Date End Date Angela Cotto MD [address] [place] [phone] PCP - General Family Medicine - Primary Care 10/26/20 documented as of this encounter
--- OUTSIDE RECORDS SUMMARY | 2023-10-16 01:28 | XMS_ITS | Encounter Summary ---
Author Organization [facility] Address [address] [place] [address] Care Team Providers Care Senior Technical Architect Name Role Phone Angela Cotto MD Primary Care Provider [phone] Encounter Details Date Type Department Care Team (Late st Contact Info) Description 03/12/2022 Orders Only [facility] [address] [place] [address] Oleg Trinidad MD [address] [place] [phone] Chronic systolic heart failure (HCC-CMS) Social History Tobacco Use Types Packs/Day [...] Diagnosis Comments BASIC METABOLIC PANEL (BMP) Routine 03/12/2022 8:39 EST Chronic systolic heart failure (HCC-CMS) documented in this encounter Results * (ABNORMAL) BASIC METABOLIC PANEL (BMP) (03/12/2022 8:39 EST) Sodium 139 136 - 145 mmol/L 03/12/2022 15:17 [facility] Potassium 4.7 3.5 - 5.0 mmol/L 03/12/2022 15:17 [facility] Chloride 103 96 - 110 mmol/L 03/12/2022 15:17 [facility] CO2 Total 26 22 - 32 mmol/L 03/12/2022 15:17 [facility] Anion Gap 10 5 - 14 03/12/2022 15:17 [facility] Glucose 113(H) 70 - 100 mg/dL 03/12/2022 15:17 [facility] Calcium 9.1 8.5 - 10.5 mg/dL 03/12/2022 15:17 [facility] BUN 18 10 - 26 mg/dL 03/12/2022 15:17 [facility] Creatinine 0.86 0.52 - 1.04 mg/dL 03/12/2022 15:17 [facility] eGFR 74 >60 mL/min/1.73 m2 03/12/2022 15:17 [facility] Blood VENOUS BLOOD / Unknown Venipuncture / Unknown 03/12/2022 8:39 EST 03/12/2022 14:23 EST Oleg Trinidad MD CHEMISTRY & BLOOD GA S ORDERABLES [facility] [address] [place] [address] documented in this encounter Visit Diagnoses Diagnosis Chronic systolic heart failure (HCC-CMS) Chronic systolic heart failure documented in this encounter Care Teams Senior Technical Architect Relationship Specialty Start Date End Date Angela Cotto MD [address] [place] [phone] PCP - General Family Medicine - Primary Care 10/26/20 documented as of this encounter
--- OUTSIDE RECORDS SUMMARY | 2023-10-16 01:28 | XMS_ITS | Encounter Summary ---
Author Organization [facility] Address [address] [place] [address] Care Team Providers Care Auto Service Station Attendant Name Role Phone Angela Cotto MD Primary Care Provider [phone] Encounter Details Date Type Department Care Team (Late st Contact Info) Description 08/01/2021 Results Only [facility] - [facility] [address] [place] [address] Oleg Trinidad MD [address] [place] [phone] Social History Tobacco Use Types Packs/Day [...] Associated Diagnosis Comments VITAMIN D (25,OH) Routine 08/01/2021 9:11 EDT documented in this encounter Results * VITAMIN D (25,OH) (08/01/2021 9:11 EDT) Vitamin D 76 30 - 100 ng/ml [facility] 08/01/2021 9:11 EDT Oleg Trinidad MD CHEMISTRY & BLOOD GA S ORDERABLES [facility] [address] [place] [address] documented in this encounter Visit Diagnoses Not on filedocumented in this encounter Care Teams Auto Service Station Attendant Relationship Specialty Start Date End Date Angela Cotto MD [address] [place] [phone] PCP - General Family Medicine - Primary Care 10/26/20 documented as of this encounter
--- OUTSIDE RECORDS SUMMARY | 2023-10-16 01:28 | XMS_ITS | Encounter Summary ---
Author Organization [facility] Address [address] [place] [address] Care Team Providers Care Family Service Aide Name Role Phone Angela Cotto MD Primary Care Provider [phone] Encounter Details Date Type Department Care Team (Latest Contact Info) Description 05/03/2022 12:58 EST - 05/03/2022 23:59 [facility] Hospital Encounter [facility] - Main [place] [address] [place] [address] Pickling Machine Operator, [facility] Discharge Disposition: Home or [...] on filedocumented in this encounter Care Teams Family Service Aide Relationship Specialty Start Date End Date Angela Cotto MD [address] [place] [phone] PCP - General Family Medicine - Primary Care 10/26/20 documented as of this encounter
--- OUTSIDE RECORDS SUMMARY | 2023-10-16 01:28 | XMS_ITS | Encounter Summary ---
Author Organization [facility] Address [address] [place] [address] Care Team Providers Care Power Machine Operator Name Role Phone Angela Cotto MD Primary Care Provider [phone] Encounter Details Date Type Department Care Team (Late st Contact Info) Description 04/18/2022 Results Only [facility] Laboratory Services - [facility] [address] [place] [address] Rhonda Doshi, PA [address] [place] [address] Social History Tobacco Use Types [...] Procedure Name Priority Date/Time Associated Diagnosis Comments DRUG SCREEN, URINE - [facility] Routine 04/18/2022 9:15 EST documented in this encounter Results * DRUG SCREEN, URINE - [facility] (04/18/2022 9:15 EST) Cannabinoids (THC) NEG NEGATIVE T [facility] Opiates (OPI) NEG NEGATIVE [facility] Amphetamines (AMP) NEG NEGATIVE T [facility] Cocaine (C0C) NEG NEGATIVE [facility] Phencyclidine (PCP) NEG NEGATIVE [facility] Tricyc Antidepressant (TCA) NEG NEGATIVE [facility] Barbituate (BAR) NEG NEGATIVE [facility] Methadone (MTD) NEG NEGATIVE [facility] Benzodiazepine (BZO) NEG NEGATIVE [facility] Propoxyphene (PPX) NEG NEGATIVE T [facility] Methamphetamine (MAMP) NEG NEGATIVE [facility] Oxycodone (OXY) NEG NEGATIVE [facility] 04/18/2022 9:15 EST Rhonda BENTLEY URINALYSIS ORDERABLE S Performing Organization Address City/State/[facility] Co de Phone Number [facility] [address] [place] [address] documented in this encounter Visit Diagnoses Not on filedocumented in this encounter Care Teams Power Machine Operator Relationship Specialty Start Date End Date Angela Cotto MD [address] [place] [phone] PCP - General Family Medicine - Primary Care 10/26/20 documented as of this encounter
--- OUTSIDE RECORDS SUMMARY | 2023-10-16 01:28 | XMS_ITS | Encounter Summary ---
Author Organization [facility] Address [address] [place] [address] Care Team Providers Care Chief Information Officer Name Role Phone Angela Cotto MD Primary Care Provider [phone] Encounter Details Date Type Department Care Team (Late st Contact Info) Description 01/30/2022 Orders Only [facility] [address] [place] [address] Oleg Trinidad MD [address] [place] [address] Primary cardiomyopathy (HCC-CMS); Vitamin D deficiency Social History Tobacco Use [...] Associated Diagnosis Comments VITAMIN D (25,OH) Routine 01/30/2022 8:5 1 EST Vitamin D deficiency BASIC METABOLIC PANEL (BMP) Routine 01/30/2022 8:51 EST Primary cardiomyopathy (HCC-CMS) documented in this encounter Results * VITAMIN D (25,OH) (01/30/2022 8:51 EST) 25OH Vitamin D Tot 55 30 - 100 ng/mL 01/30/2022 13:58 EST [facility] Blood VENOUS BLOOD / Unknown Venipuncture / Unknown 01/30/2022 8:51 EST 01/30/2022 13:21 EST Oleg Trinidad MD CHEMISTRY & BLOOD GA S ORDERABLES Performing Organization Address City/State/[facility] Co de Phone Number [facility] [address] [place] [address] * (ABNORMAL) BASIC METABOLIC PANEL (BMP) (01/30/2022 8:51 EST) Sodium 143 136 - 145 mmol/L 01/30/2022 [...] 0.92 0.52 - 1.04 mg/dL 01/30/2022 13:36 EST [facility] eGFR 68 >60 mL/min/1.73 m2 01/30/2022 13:36 EST [facility] Blood VENOUS BLOOD / Unknown Venipuncture / Unknown 01/30/2022 8:51 EST 01/30/2022 13:21 EST Oleg Trinidad MD CHEMISTRY & BLOOD GA S ORDERABLES Performing Organization Address City/State/[facility] Co de Phone Number [facility] [address] [place] [address] documented in this encounter Visit Diagnoses Diagnosis Primary cardiomyopathy (HCC-CMS) Other primary cardiomyopathies Vitamin D deficiency Unspecified vitamin D deficiency documented in this encounter Care Teams Chief Information Officer Relationship Specialty Start Date End Date Angela Cotto MD [address] [place] [phone] PCP - General Family Medicine - Primary Care 10/26/20 documented as of this encounter
--- OUTSIDE RECORDS SUMMARY | 2023-10-16 01:28 | XMS_ITS | Encounter Summary ---
Author Organization [facility] Address [address] [place] [address] Care Team Providers Care Television Repair Teacher Name Role Phone Angela Cotto MD Primary Care Provider [phone] Encounter Details Date Type Department Care Team (Late st Contact Info) Description 05/25/2021 Results Only [facility] Laboratory Services - [facility] [address] [place] [address] Angela Cotto MD [address] [place] [phone] Social History Tobacco Use Types Packs/Day [...] Date/Time Associated Diagnosis Comments HEMOGLOBIN A1C Routine 05/25/2021 10:24 EST documented in this encounter Results * (ABNORMAL) HEMOGLOBIN A1C (05/25/2021 10:24 EST) HgB A1C% 5.9 4.0 - 6.0 % [facility] Average Calculated 116(H) 60 - 115 mg/dL [facility] 05/25/2021 10:2 4 EST Angela Cotto MD CHEMISTRY & BLOOD GA S ORDERABLES [facility] [address] [place] [address] documented in this encounter Visit Diagnoses Not on filedocumented in this encounter Care Teams Television Repair Teacher Relationship Specialty Start Date End Date Angela Cotto MD [address] [place] [phone] PCP - General Family Medicine - Primary Care 10/26/20 documented as of this encounter
--- OUTSIDE RECORDS SUMMARY | 2023-10-16 01:28 | XMS_ITS | Encounter Summary ---
Author Organization [facility] Address [address] [place] [address] Care Team Providers Care Solutions Architect Consultant Name Role Phone Angela Cotto MD Primary Care Provider Encounter Details Date Type Department Care Team (Late st Contact Info) Description 04/05/2021 [facility] [address] [place] [address] Oleg Trinidad MD [address] [place] [phone] Gout, unspecified cause, unspecified chronicity, [...] Date/Time Associated Diagnosis Comments URIC ACID Routine 04/05/2021 9:16 EST Gout, unspecified cause, unspecified chronicity, unspecified site documented in this encounter Results * URIC ACID (04/05/2021 9:16 EST) Uric Acid 6.9 2.2 - 7.7 mg/dL 04/05/2021 16:07 EST [facility] Blood VENOUS BLOOD / Unknown Venipuncture / Unknown 04/05/2021 9:16 EST 04/05/2021 14:57 EST Oleg Trinidad MD CHEMISTRY & BLOOD GA S ORDERABLES Performing Organization Address City/State/[facility] Co de Phone Number [facility] [address] [place] [address] documented in this encounter Visit Diagnoses Diagnosis Gout, unspecified cause, unspecified chronicity, unspecified site- Primary documented in this encounter Care Teams Solutions Architect Consultant Relationship Specialty Start Date End Date Angela Cotto MD [address] [place] [phone] PCP - General Family Medicine - Primary Care 10/26/20 documented as of this encounter
--- OUTSIDE RECORDS SUMMARY | 2023-10-16 01:28 | XMS_ITS | Encounter Summary ---
Author Organization [facility] Address [address] [place] [address] Care Team Providers Care Field Project Manager Name Role Phone Angela Cotto MD Primary Care Provider [phone] Encounter Details Date Type Department Care Team (Late st Contact Info) Description 05/03/2022 [facility] [address] [place] [address] Oleg Trinidad MD [address] [place] [address] Heart failure, unspecified HF chronicity, unspecified heart failure type (HCC-CMS) (Primary Dx); Pure hypercholesterolemia ; Gout, unspecified cause, unspecified chronicity, unspecified site [...] documented as of this encounter Results * URIC ACID (05/03/2022 6:50 EST) Uric Acid 3.5 2.2 - 7.7 mg/dL 05/03/2022 14:11 [facility] Blood VENOUS BLOOD / Unknown Venipuncture / Unknown 05/03/2022 6:50 EST 05/03/2022 12:59 EST Oleg Trinidad MD CHEMISTRY & BLOOD GA S ORDERABLES Performing Organization Address City/State/[facility] Co de Phone Number [facility] [address] [place] [address] * (ABNORMAL) LIPID PROFILE (INCLUDES CHOLESTEROL, TRIGLYCERIDES, HDL, LDL) (05/03/2022 6:50 EST) Pathologist [facility] Cholesterol 95 <200 mg/dL 05/03/2022 14:11 [facility] Comment:Note that therapeuti c goals will differ between patients based on cardiac risk factors and current medical therapy. HDL 37(L) >=50 mg/dL 05/03/2022 14:11 [facility] Comment:Note that therapeuti c goals will differ between patients based on cardiac risk factors and current medical therapy. LDL, Calculated <20 <160 mg/dL 14:11 [facility] Comment: Note that therapeutic goals will differ between patients based on cardiac risk factors and current medical therapy. Calculated LDL invalid (<20 mg/dL) Direct LDL measurement added by reflex. Triglyceride 208(H) <=150 mg/dL 05/03/2022 14:11 [facility] Comment:Note that therapeuti c goals will differ between patients based on cardiac risk factors and current medical therapy. Chol/HDL Ratio 2.6 See Note 05/03/2022 14:11 [facility] Comment: NOTE: Desirable Ratio = <4.1 Patient At Risk Ratio = >5.0(Males) ?>6.0(Females) Non HDL Cholesterol 58 <160 mg/dL 05/03/2022 14:11 EST [facility] Comment:Note that therapeuti c goals will differ between patients based on cardiac risk factors and current medical therapy. Blood VENOUS BLOOD / Unknown Venipuncture / Unknown 05/03/2022 6:50 EST 05/03/2022 12:59 EST Oleg Trinidad MD CHEMISTRY & BLOOD GA S ORDERABLES Performing Organization Address City/[facility] Co de Phone Number [facility] [address] [place] [address] * (ABNORMAL) NT PRO BNP (05/03/2022 6:50 EST) NT-pro BNP 262(H) <125 pg/mL 05/03/2022 14:24 EST [facility] Comment:The results of this assay can be falsely lowered due to consumption of Biotin. Blood VENOUS BLOOD / Unknown Venipuncture / Unknown 05/03/2022 6:50 EST 05/03/2022 12:59 EST Oleg Trinidad MD CHEMISTRY & BLOOD GA S ORDERABLES Performing Organization Address [facility] Co de Phone Number [facility] [address] [place] [address] documented in this encounter Visit Diagnoses Diagnosis Heart failure, unspecified HF chronicity, unspecified heart failure type ([facility])- Primary Pure hypercholesterolemia Gout, unspecified cause, unspecified chronicity, unspecified site documented in this encounter Care Teams Field Project Manager Relationship Specialty Start Date End Date Angela Cotto MD [address] [place] [phone] PCP - General Family Medicine - Primary Care 10/26/20 documented as of this encounter
--- OUTSIDE RECORDS SUMMARY | 2023-10-16 01:28 | XMS_ITS | Encounter Summary ---
Author Organization [facility] Address [address] [place] [address] Care Team Providers Care Compact Assembler Name Role Phone Angela Cotto MD Primary Care Provider [phone] Encounter Details Date Type Department Care Team (Late st Contact Info) Description 10/20/2021 Results Only [facility] Laboratory Services - [facility] [address] [place] [address] Oleg Trinidad MD [address] [place] [phone] Social History Tobacco Use Types Packs/Day [...] COMPLETE BLOOD COUNT WITH DIFFERENTIAL (AUTO) Routine 10/20/2021 8:20 EDT documented in this encounter Results * (ABNORMAL) COMPLETE BLOOD COUNT WITH DIFFERENTIAL (AUTO) (10/20/2021 8:20 EDT) WBC 10.4 4.5 - 10.5 x10e3/uL [facility] Lymphocytes 41.5 20.5 - 51.1 % [facility] Monocytes 5.6 1.7 - 9.3 % [facility] Granulocytes 52.9 42.2 - 75.2 % [facility] Lymph # 4.3(H) 1.2 - 3.4 x10e3/uL [facility] Yancey # 0.6 0.1 - 0.6 x10e3/uL [facility] Gran # 5.5 1.4 - 6.5 x10e3/uL [facility] RBC 4.95 4.00 - 6.00 x10e6/uL [facility] HGB 15.2 11.0 - 18.0 g/dL [facility] HCT 47.5 35.0 - 60.0 % [facility] MCV 95.9 80.0 - 99.9 fL [facility] MCH 30.8 27.0 - 31.0 pg [facility] MCHC 32.1(L) 33.0 - 37.0 g/dL [facility] RDW 14.9(H) 11.6 - 13.7 % [facility] PLT 302 150 - 450 x10e3/uL [facility] MPV 6.9(L) 7.8 - 11.0 fL [facility] 10/20/2021 8:20 EDT Oleg Trinidad MD HEMATOLOGY & PF4 ORD ERABLES [facility] [address] [place] [address] documented in this encounter Visit Diagnoses Not on filedocumented in this encounter Care Teams Compact Assembler Relationship Specialty Start Date End Date Angela Cotto MD [address] [place] [phone] PCP - General Family Medicine - Primary Care 10/26/20 documented as of this encounter
--- OUTSIDE RECORDS SUMMARY | 2023-10-16 01:28 | XMS_ITS | Encounter Summary ---
Author Organization [facility] Address [address] [place] [address] Care Team Providers Care Rn Community Name Role Phone Angela Cotot MD Primary Care Provider [phone] Encounter Details Date Type Department Care Team (Late st Contact Info) Description 05/03/2022 Orders Only [facility] [address] [place] [address] Oleg Trinidad MD [address] [place] [address] Gout, unspecified cause, unspecified chronicity, unspecified site; Pure hypercholesterolemia; Heart failure, unspecified HF chronicity, unspecified heart failure type ([facility]) Social History Tobacco Use Types Packs/Day Years [...] Date/Time Associated Diagnosis Comments LDL, DIRECT Today 05/03/2022 6:50 EST Pure hypercholesterolemia URIC ACID Routine 05/03/2022 6:50 EST Gout, unspecified cause, unspecified chronicity, unspecified site NT PRO BNP Routine 05/03/2022 6:50 EST Heart failure, unspecified HF chronicity, unspecified heart failure type ([facility]) LIPID PROFILE (INCLUDES CHOLESTEROL, TRIGLYCERIDES, HDL, LDL) Routine 05/03/2022 6:50 EST Pure hypercholesterolemia documented in this encounter Results * LDL, DIRECT (05/03/2022 6:50 EST) LDL, Direct <30 <160 mg/dL 05/03/2022 14:[address] [facility] Comment: LDL, Direct Reference Ranges: Optimal: Less than 100 mg/dL Above Optimal: 100-129 mg/dL Borderline High: 130-159 mg/dL High: 160-189 mg/dL Very High: Greater than or equal to 190 mg/dL Blood VENOUS BLOOD / Unknown Venipuncture / Unknown 05/03/2022 6:50 EST 05/03/2022 12:59 EST Oleg Trinidad MD CHEMISTRY & BLOOD GA S ORDERABLES [facility] [address] [place] [address] * (ABNORMAL) NT PRO BNP (05/03/2022 6:50 EST) NT-pro BNP 262(H) <125 pg/mL 05/03/2022 14:[address] [facility] Comment:The results of this assay can be falsely lowered due to consumption of Biotin. Blood VENOUS BLOOD / Unknown Venipuncture / Unknown 05/03/2022 6:50 EST 05/03/2022 12:59 EST Oleg Trinidad MD CHEMISTRY & BLOOD GA S ORDERABLES [facility] [address] [place] [address] * (ABNORMAL) LIPID PROFILE (INCLUDES CHOLESTEROL, TRIGLYCERIDES, HDL, LDL) (05/03/2022 6:50 EST) Cholesterol 95 <200 mg/dL 05/03/2022 14:11 [facility] Comment:Note that therapeuti c goals will differ between patients based on cardiac risk factors and current medical therapy. HDL 37(L) >=50 mg/dL 05/03/2022 14:11 [facility] Comment:Note that therapeuti c goals will differ between patients based on cardiac risk factors and current medical therapy. LDL, Calculated <20 <160 mg/dL 14:11 [facility] Comment: Note that therapeutic goals will differ between patients based on cardiac risk factors and current medical therapy. Calculated LDL invalid (<20 mg/dL) Direct LDL measurement added by reflex. Triglyceride 208(H) <=150 mg/dL 05/03/2022 14:11 [facility] Comment:Note that therapeuti c goals will differ between patients based on cardiac risk factors and current medical therapy. Chol/HDL Ratio 2.6 See Note 05/03/2022 14:11 [facility] Comment: NOTE: Desirable Ratio = <4.1 Patient At Risk Ratio = >5.0(Males) ?>6.0(Females) Non HDL Cholesterol 58 <160 mg/dL 05/03/2022 14:11 [facility] Comment:Note that therapeuti c goals will differ between patients based on cardiac risk factors and current medical therapy. Blood VENOUS BLOOD / Unknown Venipuncture / Unknown 05/03/2022 6:50 EST 05/03/2022 12:59 EST Oleg Trinidad MD CHEMISTRY & BLOOD GA S ORDERABLES [facility] [address] [place] [address] * URIC ACID (05/03/2022 6:50 EST) Uric Acid 3.5 2.2 - 7.7 mg/dL 05/03/2022 14:[address] [facility] Blood VENOUS BLOOD / Unknown Venipuncture / Unknown 05/03/2022 6:50 EST 05/03/2022 12:59 EST Oleg Trinidad MD CHEMISTRY & BLOOD GA S ORDERABLES Performing Organization Address City/[facility] Co de Phone Number [facility] [address] [place] [address] documented in this encounter Visit Diagnoses Diagnosis Gout, unspecified cause, unspecified chronicity, unspecified site Pure hypercholesterolemia Heart failure, unspecified HF chronicity, unspecified heart failure type ([facility]) documented in this encounter Care Teams Rn Community Relationship Specialty Start Date End Date Angela Cotto MD [address] [place] [phone] PCP - General Family Medicine - Primary Care 10/26/20 documented as of this encounter
--- OUTSIDE RECORDS SUMMARY | 2023-10-16 01:28 | XMS_ITS | Encounter Summary ---
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
--- OUTSIDE RECORDS SUMMARY | 2023-10-16 01:28 | XMS_ITS | Encounter Summary ---
Author Organization [facility] Address [address] [place] [address] Care Team Providers Care Distribution Operations Manager Name Role Phone Angela Cotto MD Primary Care Provider [phone] Encounter Details Date Type Department Care Team (Late st Contact Info) Description 05/03/2022 Results Only [facility] Laboratory Services - [facility] [address] [place] [address] Oleg Trinidad MD [address] [place] [phone] Social History Tobacco Use Types Packs/Day [...] Priority Date/Time Associated Diagnosis Comments MAGNESIUM Routine 05/03/2022 7:00 EST documented in this encounter Results * MAGNESIUM (05/03/2022 7:00 EST) Magnesium 2.10 1.60 - 2.30 mg/dL [facility] 05/03/2022 7:00 EST Oleg Trinidad MD CHEMISTRY & BLOOD GA S ORDERABLES Performing Organization Address City/State/[facility] Co de Phone Number [facility] [address] [place] [address] documented in this encounter Visit Diagnoses Not on filedocumented in this encounter Care Teams Distribution Operations Manager Relationship Specialty Start Date End Date Angela Cotto MD [address] [place] [phone] PCP - General Family Medicine - Primary Care 10/26/20 documented as of this encounter
--- OUTSIDE RECORDS SUMMARY | 2023-10-16 01:29 | XMS_ITS | Encounter Summary ---
Author Organization [facility] Address [address] [place] [address] Care Team Providers Care Deputy Bailiff Name Role Phone Ethel Cunningham MD Primary Care Provider [phone] Encounter Details Date Type Department Care Team (Late st Contact Info) Description 12/02/2019 Results Only [facility] - [facility] - Main [address] [address] Angela Cotto MD [address] [place] [phone] Social History Tobacco Use Types Packs/Day Years Used Date Smoking Tobacco: Never Assessed Interpersonal Safety Answer Date Record ed Physically [...] Name Priority Date/Time Associated Diagnosis Comments LIPID PANEL POC - CV Routine 0 13:35 EDT COMPREHENSIVE METABOLIC POC - [facility] Routine 12/02/2019 13:35 EDT GLYCOHEMOGLOBIN POC - [facility] Routine 12/02/2019 13:35 EDT MAGNESIUM POC - [facility] Routine 12/02/2019 13:35 EDT POCT CHOLESTEROL LDL ([facility]) Routine 12/02/2019 13:35 EDT URIC ACID Routine 12/02/2019 7:00 EDT documented in this encounter Results * MAGNESIUM POC - CV (12/02/2019 13:35 EDT) Magnesium 2.00 1.60 - 2.30 MG/DL 12/02/2019 13:38 EDT [facility] 12/02/2019 13:3 5 EDT 12/02/2019 13:35 EDT [facility] - 12/02/2019 13:38 EDT CHRONIC RENAL IMPAIRMENT IS DEFINED GFR <60 MULTIPLY RESULT BY 1.210 FOR PATIENTS EGFR CALCULATED USING THE IDMS-TRACEABLE MDRD STUDY Angela Cotto MD CHEMISTRY & BLOOD GA S ORDERABLES Performing Organization Address [facility] Co de Phone Number [facility] [address] [place] [address] * (ABNORMAL) LIPID PANEL POC - CV (12/02/2019 13:35 EDT) Triglyceride 270(H) 0.00 - 150.00 MG/DL 12/02/2019 13:38 EDT [facility] Cholesterol 110 0.00 - 200.00 MG/DL 12/02/2019 13:38 EDT [facility] HDL 38(L) 40.00 - 60.00 MG/DL 12/02/2019 13:38 EDT [facility] 12/02/2019 13:3 5 EDT 12/02/2019 13:35 EDT Narrative [facility] - 12/02/2019 13:38 EDT CHRONIC RENAL IMPAIRMENT IS DEFINED GFR <60 MULTIPLY RESULT BY 1.210 FOR PATIENTS EGFR CALCULATED USING THE IDMS-TRACEABLE MDRD STUDY Angela Cotto MD CHEMISTRY & BLOOD GA S ORDERABLES Performing Organization Address [facility] Co de Phone Number [facility] [address] [place] [address] * (ABNORMAL) POCT CHOLESTEROL LDL (CV) (12/02/2019 13:35 EDT) Pathologist [facility] LDL CHOLESTEROL - [facility] 18(L) 60 - 100 mg/dl 12/02/2019 13:38 EDT [facility] 12/02/2019 13:3 5 EDT 12/02/2019 13:35 EDT [facility] - 12/02/2019 13:38 EDT CHRONIC RENAL IMPAIRMENT IS DEFINED GFR <60 MULTIPLY RESULT BY 1.210 FOR PATIENTS EGFR CALCULATED USING THE IDMS-TRACEABLE MDRD STUDY Angela Cotto MD POINT OF CARE TEST O RDERABLES Performing Organization Address [facility]/ZIP Co de Phone Number [facility] [address] [place] [address] * (ABNORMAL) GLYCOHEMOGLOBIN POC - [facility] (12/02/2019 13:35 EDT) [facility] Hemoglobin A1c 6.1(H) 4.0 - 6.0 % 12/02/2019 13:38 [facility] AVG CALCULATED GLUCOSE - [facility] 123(H) 60 - 115 MG/DL 12/02/2019 13:38 [facility] 12/02/2019 13:3 5 EDT 12/02/2019 13:35 EDT [facility] - 12/02/2019 13:38 EDT CHRONIC RENAL IMPAIRMENT IS DEFINED GFR <60 MULTIPLY RESULT BY 1.210 FOR PATIENTS EGFR CALCULATED USING THE IDMS-TRACEABLE MDRD STUDY Angela Cotto MD CHEMISTRY & BLOOD GA S ORDERABLES Performing Organization Address City/[facility]/ZIP Co de Phone Number [facility] [address] [place] [address] * (ABNORMAL) COMPREHENSIVE METABOLIC POC - [facility] (12/02/2019 13:35 EDT) [facility] Albumin % 4.4 3.50 - 5.00 G/DL 12/02/2019 13:38 [facility] ALKALINE PHOSPHATASE - [facility] 87 38.00 - 126.00 U/L 12/02/2019 13:38 [facility] BILIRUBIN TOTAL 0.6 0.20 - 1.30 MG/DL 12/02/2019 13:38 [facility] BUN - [facility] 20 7.00 - 20.00 MG/DL 12/02/2019 13:38 [facility] CALCIUM - [facility] 9.6 8.50 - 10.50 MG/DL 12/02/2019 13:38 [facility] Chloride 99 98.00 - 107.00 MMOL/L 12/02/2019 13:38 [facility] CO2 Total 33(H) 22.00 - 30.00 MMOL/L 12/02/2019 13:38 [facility] CREATININE 0.9 0.70 - 1.50 MG/DL 12/02/2019 13:38 [facility] Anion Gap 6(L) 7 - 17 12/02/2019 13:38 [facility] GLUCOSE - [facility] 108(H) 70.00 - 100.00 MG/DL 12/02/2019 13:38 [facility] Potassium 4.3 3.50 - 5.10 MMOL/L 12/02/2019 13:38 [facility] Sodium 138 137.00 - 145.00 MMOL/L 12/02/2019 13:38 [facility] TOTAL PROTEIN - [facility] 6.9 6.30 - 8.20 G/DL 12/02/2019 13:38 [facility] SGOT/AST - [facility] 24 15.00 - 46.00 U/L 12/02/2019 13:38 [facility] SGPT/ALT - [facility] 22 0.00 - 35.00 U/L 12/02/2019 13:38 [facility] 12/02/2019 13:3 5 EDT 12/02/2019 13:35 [facility] - 12/02/2019 13:38 [facility] CHRONIC RENAL IMPAIRMENT IS DEFINED GFR <60 MULTIPLY RESULT BY 1.210 FOR PATIENTS EGFR CALCULATED USING THE IDMS-TRACEABLE MDRD STUDY Angela Cotto MD CHEMISTRY & BLOOD GA S ORDERABLES Performing Organization Address City/[facility]/ZIP Co de Phone Number [facility] [address] [place] [address] * (ABNORMAL) URIC ACID (12/02/2019 7:00 EDT) URIC ACID - [facility] 9.9(H) 2.2 - 7.7 mg/dL 12/02/2019 14:09 EDT [facility] 12/02/2019 7:00 EDT 12/02/2019 13:41 EDT Narrative [facility] - 12/02/2019 14:09 EDT Does PT Have a Latex Allergy? NO Angela Cotto MD CHEMISTRY & BLOOD GA S ORDERABLES Performing Organization Address [facility] de Phone Number [facility] [address] [place] [address] documented in this encounter Visit Diagnoses Not on filedocumented in this encounter Care Teams Deputy Bailiff Relationship Specialty Start Date End Date Ethel Cunningham MD [address] [place] [phone] PCP - General 07/21/12 10/25/20 documented as of this encounter
--- OUTSIDE RECORDS SUMMARY | 2023-10-16 01:29 | XMS_ITS | Encounter Summary ---
Author Organization [facility] Address [address] [place] [address] Care Team Providers Care Hogshead Opener Name Role Phone Ethel Cunningham MD Primary Care Provider [phone] Encounter Details Date Type Department Care Team (Late st Contact Info) Description 10/28/[address] [facility] [place] [facility] [place] [address] [address] Angela Cotto MD [address] [place] [phone] Social History Tobacco Use Types Packs/Day Years Used Date Smoking Tobacco: Never Assessed Sex and Gender Information Value Date Recorded Sex Assigned at Not on file Gender Identity Not on file Sexual Orientation Not on file documented as of this encounter Plan of Treatment Not on file documented as of this encounter Procedures Procedure Name Priority Date/Time Associated Diagnosis Comments GLYCOHEMOGLOBIN POC - CV Routine 10/28/2018 11:35 EDT documented in this encounter Results * (ABNORMAL) GLYCOHEMOGLOBIN POC - CV (10/28/2018 11:35 EDT) Hemoglobin A1c 6.2(H) 4.0 - 6.0 % 10/28/2018 11:37 EDT [facility] AVG CALCULATED GLUCOSE - CV 126(H) 60 - 115 MG/DL 10/28/2018 11:37 EDT [facility] 10/28/2018 11:3 5 EDT 10/28/2018 11:35 EDT Angela Cotto MD CHEMISTRY & BLOOD GA S ORDERABLES [facility] documented in this encounter Visit Diagnoses Not on filedocumented in this encounter Care Teams Hogshead Opener Relationship Specialty Start Date End Date Ethel Cunningham MD [address] [place] [phone] PCP - General 07/21/12 10/25/20 documented as of this encounter
--- OUTSIDE RECORDS SUMMARY | 2023-10-16 01:29 | XMS_ITS | Encounter Summary ---
Author Organization [facility] Address [address] [place] [address] Care Team Providers Care Branch Retail Executive Name Role Phone Ethel Cunningham MD Primary Care Provider Encounter Details Date Type Department Care Team (Late st Contact Info) Description 07/22/2019 Results Only [facility] - [address] [address] Angela Cotto MD [address] [place] [phone] Social History Tobacco Use Types Packs/Day Years Used Date Smoking Tobacco: Never Assessed Sex and Gender Information Value Date Recorded Sex Assigned at Not on file Gender Identity Not on file Sexual Orientation Not on file documented as of this encounter Plan of Treatment Not on file documented as of this encounter Procedures Procedure Name Priority Date/Time Associated Diagnosis Comments POCT CHOLESTEROL LDL ([facility]) Routine 07/22/2019 14:12 EDT documented in this encounter Results * (ABNORMAL) POCT CHOLESTEROL LDL ([facility]) (07/22/2019 14:12 EDT) LDL CHOLESTEROL - [facility] 24(L) 60 - 100 mg/dl 07/22/2019 14:13 EDT [facility] 07/22/2019 14:1 2 EDT 07/22/2019 14:12 EDT Narrative [facility] - 07/22/2019 14:13 EDT CHRONIC RENAL IMPAIRMENT IS DEFINED GFR <60 MULTIPLY RESULT BY 1.210 FOR PATIENTS EGFR CALCULATED USING THE IDMS-TRACEABLE MDRD STUDY Angela Cotto MD POINT OF CARE TEST O RDERABLES [facility] documented in this encounter Visit Diagnoses Not on filedocumented in this encounter Care Teams Branch Retail Executive Relationship Specialty Start Date End Date Ethel Cunningham MD [address] [place] [address] PCP - General 07/21/12 10/25/20 documented as of this encounter
--- OUTSIDE RECORDS SUMMARY | 2023-10-16 01:29 | XMS_ITS | Encounter Summary ---
Author Organization [facility] Address [address] [place] [address] Care Team Providers Care Biztalk Administrator Name Role Phone Ethel Cunningham MD Primary Care Provider Encounter Details Date Type Department Care Team (Late st Contact Info) Description 11/26/2017 Historical Results Only [facility] - [facility] - [address] [address] Rhonda Doshi, [place] [address] [place] [phone] Social History Tobacco Use Types Packs/Day Years Used Date Smoking Tobacco: Never Assessed Sex and Gender Information Value Date Recorded Sex Assigned at Not on file Gender Identity Not on file Sexual Orientation Not on file documented as of this encounter Plan of Treatment Not on file documented as of this encounter Procedures Procedure Name Priority Date/Time Associated Diagnosis Comments LDL CHOL DIRECT - CV Routine 11/26/2017 12:20 EDT THYROID STIM HORMONE POC - CV Routine 11/26/2017 12:10 EDT documented in this encounter Results * LDL CHOL DIRECT - CV (11/26/2017 12:20 EDT) LDL CHOLESTEROL DIRECT - CV 109 mg/dL 11/26/2017 20:55 EDT [facility] Comment: The National Cholesterol Education Program Adult Treatment Panel III (NCEP-ATP III) provides the following classifications of LDL: Category ? mg/dl Optimal ?<100 ? Near Optimal ? 100-129 Borderline High ?130-159 High ? 160-189 Very High ?> or = 190 11/26/2017 12:2 0 EDT 11/26/2017 18:34 EDT Narrative [facility] - 11/26/2017 20:55 EDT Does PT Have a Latex Allergy? NO Rhonda BENTLEY CHEMISTRY & BLOOD GA S ORDERABLES [facility] * THYROID STIM HORMONE POC - [facility] (11/26/2017 12:10 EDT) THYROID STIM HORMONE - [facility] 2.28 0.45 - 5.33 UIU/ML 11/26/2017 12:11 EDT [facility] 11/26/2017 12:1 0 EDT 11/26/2017 12:10 EDT Rhonda BENTLEY CHEMISTRY & BLOOD GA S ORDERABLES [facility] documented in this encounter Visit Diagnoses Not on filedocumented in this encounter Care Teams Biztalk Administrator Relationship Specialty Start Date End Date Ethel Cunningham MD [address] [place] [phone] PCP - General 07/21/12 10/25/20 documented as of this encounter
--- OUTSIDE RECORDS SUMMARY | 2023-10-16 01:29 | XMS_ITS | Encounter Summary ---
Author Organization [facility] Address [address] [place] [address] Care Team Providers Care Legal Job Titles Name Role Phone Ethel Cunningham MD Primary Care Provider Encounter Details Date Type Department Care Team (Late st Contact Info) Description 05/12/2020 Results Only [facility] - [facility] - Main [address] [address] Angela Cotto MD [address] [place] [phone] Social History Tobacco Use Types Packs/Day [...] Associated Diagnosis Comments LIPID PANEL POC - [facility] Routine 9:48 EST COMPREHENSIVE METABOLIC POC - CV Routine 05/12/2020 9:48 EST GLYCOHEMOGLOBIN POC - CV Routine 05/12/2020 9:48 EST POCT CHOLESTEROL LDL (CV) Routine 05/12/2020 9:48 EST URIC ACID Routine 05/12/2020 7:40 EST documented in this encounter Results * (ABNORMAL) LIPID PANEL POC - CV (05/12/2020 9:48 EST) Triglyceride 289(H) 0.00 - 150.00 MG/DL 05/12/2020 9:49 EST [facility] Cholesterol 109 0.00 - 200.00 MG/DL 05/12/2020 9:49 EST [facility] HDL 37(L) 40.00 - 60.00 MG/DL 05/12/2020 9:49 EST [facility] 05/12/2020 9:48 EST 05/12/2020 9:48 EST Narrative [facility] - 05/12/2020 9:49 EST CHRONIC RENAL IMPAIRMENT IS DEFINED GFR <60 MULTIPLY RESULT BY 1.210 FOR PATIENTS EGFR CALCULATED USING THE IDMS-TRACEABLE MDRD STUDY Angela Cotto MD CHEMISTRY & BLOOD GA S ORDERABLES Performing Organization Address City/[facility]/ZIP Co de Phone Number [facility] [address] [place] [address] * (ABNORMAL) POCT CHOLESTEROL LDL ([facility]) (05/12/2020 9:48 EST) LDL CHOLESTEROL - CV 14(L) 60 - 100 mg/dl 05/12/2020 9:49 EST [facility] 05/12/2020 9:48 EST 05/12/2020 9:48 EST Narrative [facility] - 05/12/2020 9:49 EST CHRONIC RENAL IMPAIRMENT IS DEFINED GFR <60 MULTIPLY RESULT BY 1.210 FOR PATIENTS EGFR CALCULATED USING THE IDMS-TRACEABLE MDRD STUDY Angela Cotto MD POINT OF CARE TEST O RDERABLES Performing Organization Address City/[facility]/ZIP Co de Phone Number [facility] [address] [place] [address] * (ABNORMAL) GLYCOHEMOGLOBIN POC - [facility] (05/12/2020 9:48 EST) [facility] Hemoglobin A1c 6.0 4.0 - 6.0 % 05/12/2020 9:49 [facility] AVG CALCULATED GLUCOSE - [facility] 120(H) 60 - 115 MG/DL 05/12/2020 9:49 [facility] 05/12/2020 9:48 EST 05/12/2020 9:48 EST [facility] - 05/12/2020 9:49 EST CHRONIC RENAL IMPAIRMENT IS DEFINED GFR <60 MULTIPLY RESULT BY 1.210 FOR PATIENTS EGFR CALCULATED USING THE IDMS-TRACEABLE MDRD STUDY Angela Cotto MD CHEMISTRY & BLOOD GA S ORDERABLES [facility] [address] [place] [address] * (ABNORMAL) COMPREHENSIVE METABOLIC POC - [facility] (05/12/2020 9:48 EST) [facility] Albumin % 4.4 3.50 - 5.00 G/DL 05/12/2020 9:49 [facility] ALKALINE PHOSPHATASE - [facility] 107 38.00 - 126.00 U/L 05/12/2020 9:49 [facility] BILIRUBIN TOTAL 0.8 0.20 - 1.30 MG/DL 05/12/2020 9:49 [facility] BUN - [facility] 9 7.00 - 20.00 MG/DL 05/12/2020 9:49 [facility] CALCIUM - [facility] 9.6 8.50 - 10.50 MG/DL 05/12/2020 9:49 [facility] Chloride 103 98.00 - 107.00 MMOL/L 05/12/2020 9:49 [facility] CO2 Total 26 22.00 - 30.00 MMOL/L 05/12/2020 9:49 [facility] CREATININE 0.6(L) 0.70 - 1.50 MG/DL 05/12/2020 9:49 [facility] Anion Gap 11 7 - 17 05/12/2020 9:49 [facility] GLUCOSE - [facility] 129(H) 70.00 - 100.00 MG/DL 05/12/2020 9:49 [facility] Potassium 4.5 3.50 - 5.10 MMOL/L 05/12/2020 9:49 [facility] Sodium 140 137.00 - 145.00 MMOL/L 05/12/2020 9:49 [facility] TOTAL PROTEIN - [facility] 6.8 6.30 - 8.20 G/DL 05/12/2020 9:49 [facility] SGOT/AST - [facility] 39 15.00 - 46.00 U/L 05/12/2020 9:49 [facility] SGPT/ALT - [facility] 65(H) 0.00 - 35.00 U/L 05/12/2020 9:49 [facility] 05/12/2020 9:48 EST 05/12/2020 9:48 EST Narrative [facility] - 05/12/2020 9:49 EST CHRONIC RENAL IMPAIRMENT IS DEFINED GFR <60 MULTIPLY RESULT BY 1.210 FOR PATIENTS EGFR CALCULATED USING THE IDMS-TRACEABLE MDRD STUDY Angela Cotto MD CHEMISTRY & BLOOD GA S ORDERABLES Performing Organization Address City/[facility]/ZIP Co de Phone Number [facility] [address] [place] [address] * URIC ACID (05/12/2020 7:40 EST) URIC ACID - [facility] 6.0 2.2 - 7.7 mg/dL 05/12/2020 15:03 EST [facility] 05/12/2020 7:40 EST 05/12/2020 14:22 EST Narrative [facility] - 05/12/2020 15:03 EST Does PT Have a Latex Allergy? NO Angela Cotto MD CHEMISTRY & BLOOD GA S ORDERABLES [facility] [address] [place] [address] documented in this encounter Visit Diagnoses Not on filedocumented in this encounter Care Teams Legal Job Titles Relationship Specialty Start Date End Date Ethel Cunningham MD [address] [place] [phone] PCP - General 07/21/12 10/25/20 documented as of this encounter
--- OUTSIDE RECORDS SUMMARY | 2023-10-16 01:29 | XMS_ITS | Encounter Summary ---
Author Organization [facility] Address [address] [place] [address] Care Team Providers Care Telephoto Engineer Name Role Phone Angela Cotto MD Primary Care Provider [phone] Encounter Details Date Type Department Care Team (Late st Contact Info) Description 10/27/2020 Results Only Imaging [facility] Radiology Results [address] [place] [address] Angela Cotto MD [address] [place] [phone] Social History Tobacco Use Types Packs/Day [...] Procedure Name Priority Date/Time Associated Diagnosis Comments MA BREAST SCREENING GEETHA BILATERAL 10/27/2020 10:57 EDT documented in this encounter Results * MA BREAST SCREENING GEETHA BILATERAL (10/27/2020 10:57 EDT) Anatomical Region Laterality Modality Breast Bilateral Mammography 10/27/2020 10:5 7 EDT Narrative 10/27/2020 10:57 EDT ? EXAM: MAMMOGRAM/MAMMO BILATERAL SCREEN W ??EX. D/ ([id number]) ? CLINICAL INFORMATION: ? Z12.31 SCREENING ? INDICATION: Z12.31 SCREENING SCREENING ??May 27 ? COMPARISON: ??Comparison has been made to previous images. ? TECHNIQUE: ??Full field digital whole breast 2D (C-view) and 3D CC and ? MLO views of both breasts were obtained. CAD technology was utilized. ? FINDINGS: ??The fibroglandular patterns of the breasts are normal. ? There has been no change when compared to previous mammograms and ? there is no mammographic evidence of cancer. ??There are scattered ? areas of fibroglandular density. ? FINAL ASSESSMENT: ??BILATERAL BREAST - Category 1 - Negative. Routine ? mammographic follow-up is recommended. ? These results will be communicated to your patient via a lay letter ? from Radiology. ??If any additional imaging is needed we will contact ? your patient directly. ? REPORT SIGNED IN OTHER VENDOR SYSTEM 10/27/2020 ?Reported By: Jaziel Tirado MD ? CC: ? Transcribed Date/Time: 10/27/2020 (1057) ? Conservation Science Officer: ? Printed Date/Time: 10/27/2020 (1119) ? PAGE 1 ? Signed Report ? Procedure Note Jaziel Tirado MD - 10/27/2020 EXAM: MAMMOGRAM/MAMMO BILATERAL SCREEN W EX. D/ ([id number]) CLINICAL INFORMATION: Z12.31 SCREENING INDICATION: Z12.31 SCREENING SCREENING May 27 COMPARISON: Comparison has been made to previous images. TECHNIQUE: Full field digital whole breast 2D (C-view) and 3D CCand MLO views of both breasts were obtained. CAD technology wasutilized. FINDINGS: The fibroglandular patterns of the breasts are normal. There has been no change when compared to previous mammograms and there is no mammographic evidence of cancer. There are scattered areas of fibroglandular density. FINAL ASSESSMENT: BILATERAL BREAST - Category 1 - Negative.Routine mammographic follow-up is recommended. These results will be communicated to your patient via a lay letter from Radiology. If any additional imaging is needed we willcontact your patient directly. REPORT SIGNED IN OTHER VENDOR SYSTEM 10/27/2020 Reported By: Jaziel Tirado MD CC: Transcribed Date/Time: 10/27/2020 (5394) Conservation Science Officer: Printed Date/Time: 10/27/2020 (3504) PAGE 1 Signed Report Angela Cotto MD [facility] MAMMOGRAPHY [facility] documented in this encounter Visit Diagnoses Not on filedocumented in this encounter Care Teams Telephoto Engineer Relationship Specialty Start Date End Date Angela Cotto MD [address] [place] [phone] PCP - General Family Medicine - Primary Care 10/26/20 documented as of this encounter
--- OUTSIDE RECORDS SUMMARY | 2023-10-16 01:29 | XMS_ITS | Encounter Summary ---
Author Organization [facility] Address [address] [place] [address] Care Team Providers Care Electric Razor Mechanic Name Role Phone Ethel Cunningham MD Primary Care Provider [phone] Encounter Details Date Type Department Care Team (Late st Contact Info) Description 10/28/2018 Historical Results Only [facility] - [address] [address] Angela Cotto MD [address] [place] [phone] Social History Tobacco Use Types Packs/Day Years Used Date Smoking Tobacco: Never Assessed Sex and Gender Information Value Date Recorded Sex Assigned at Not on file Gender Identity Not on file Sexual Orientation Not on file documented as of this encounter Plan of Treatment Not on file documented as of this encounter Procedures Procedure Name Priority Date/Time Associated Diagnosis Comments COMPREHENSIVE METABOLIC POC - [facility] Routine 10/28/2018 11:35 EDT documented in this encounter Results * (ABNORMAL) COMPREHENSIVE METABOLIC POC - [facility] (10/28/2018 11:35 EDT) Albumin % 3.8 3.50 - 5.00 G/DL 10/28/2018 11:37 EDT [facility] ALKALINE PHOSPHATASE - [facility] 84 38.00 - 126.00 U/L 10/28/2018 11:37 EDT [facility] BILIRUBIN TOTAL 0.7 0.20 - 1.30 MG/DL 10/28/2018 11:37 [facility] BUN - [facility] 14 7.00 - 20.00 MG/DL 10/28/2018 11:37 [facility] CALCIUM - [facility] 9.3 8.50 - 10.50 MG/DL 10/28/2018 11:37 [facility] Chloride 100 98.00 - 107.00 MMOL/L 10/28/2018 11:37 [facility] CO2 Total 30 22.00 - 30.00 MMOL/L 10/28/2018 11:37 [facility] CREATININE 0.9 0.70 - 1.50 MG/DL 10/28/2018 11:37 [facility] Anion Gap 9 7 - 17 MMOL/L 10/28/2018 11:37 [facility] GLUCOSE - [facility] 101(H) 70.00 - 100.00 MG/DL 10/28/2018 11:37 [facility] Potassium 4.2 3.50 - 5.10 MMOL/L 10/28/2018 11:37 [facility] Sodium 139 137.00 - 145.00 MMOL/L 10/28/2018 11:37 [facility] TOTAL PROTEIN - [facility] 6.5 6.30 - 8.20 G/DL 10/28/2018 11:37 [facility] SGOT/AST - [facility] 19 15.00 - 46.00 U/L 10/28/2018 11:37 [facility] SGPT/ALT - [facility] 25 13.00 - 69.00 U/L 10/28/2018 11:37 [facility] 10/28/2018 11:3 5 EDT 10/28/2018 11:35 EDT Angela Cotto MD CHEMISTRY & BLOOD GA S ORDERABLES [facility] documented in this encounter Visit Diagnoses Not on filedocumented in this encounter Care Teams Electric Razor Mechanic Relationship Specialty Start Date End Date Ethel Cunningham MD [address] [place] [address] PCP - General 07/21/12 10/25/20 documented as of this encounter
--- OUTSIDE RECORDS SUMMARY | 2023-10-16 01:29 | XMS_ITS | Encounter Summary ---
Author Organization [facility] Address [address] [place] [address] Care Team Providers Care Production Recorder Name Role Phone Ethel Cunningham MD Primary Care Provider [phone] Encounter Details Date Type Department Care Team (Late st Contact Info) Description 11/12/2018 Historical Results Only [facility] Lab - [address] [address] Angela Cotto MD [address] [place] [phone] Social History Tobacco Use Types Packs/Day Years Used Date Smoking Tobacco: Never Assessed Sex and Gender Information Value Date Recorded Sex Assigned at Not on file Gender Identity Not on file Sexual Orientation Not on file documented as of this encounter Plan of Treatment Not on file documented as of this encounter Procedures Procedure Name Priority Date/Time Associated Diagnosis Comments HPV DNA DETECTION WITH GENOTYPING, PCR Routine 11/12/2018 8:43 EDT PAP TEST Routine 11/12/2018 documented in this encounter Results * HUMAN PAPILLOMAVIRUS (HPV) DETECTION-HIGH RISK TYPES (11/12/2018 8:43 EDT) HPV other High Risk types, PCR NEG 11/17/2018 15:52 EDT [facility] Comment: Negative for HPV types 16, 18, 31, 33, 35, 39, 45, 51, 52, 56, 58, 59, 66, 68. Method: Cervista HPV HR (High Risk) DNA test. 11/12/2018 8:43 EDT 11/13/2018 8:43 EDT Angela Cotot MD MICROBIOLOGY - GENER AL ORDERABLES [facility] * PAP TEST (11/12/2018) 11/12/2018 11/13/2018 8:3 7 EDT Narrative [facility] - 11/18/2018 11:25 EDT ----- ------- Name: STACY STOKES ?: 53 ?Age/Sex: 63/F ?Unit#: [id number] ? Loc: LAB.THC ? Status: REG REF ?? Reg Date: 11/12/18 ? Pt.Phone Number: ? ----- ------- Specimen: [id number] ?STATUS: SOUT ?Spec Date:11/12/18 ? Physician Copies: ?Angela Cotto MD ? Tissues: ? Cervical/Endo Pap ? CPT: 91418 ?? Units: ??1 ----- ------- ? CYTOLOGY DIAGNOSIS SPECIMEN ADEQUACY: ?Satisfactory for evaluation. Transformation zone component ABSENT. GENERAL CATEGORIZATION: ?Negative for Intraepithelial Lesion or Malignancy DESCRIPTIVE DIAGNOSIS: ?? Shift in inder present suggestive of bacterial vaginosis. ----- ------- ?HPV DNA RESULTS ? LABORATORY ?? Date ? Time Test ?Result ?? Flag ?Normal Range ?? 11/12/18 0843 HPV DNA RESULT ??NEG ? Negative for HPV types 16, 18, 31, 33, 35, 39, 45, 51, 52, ? 56, 58, 59, 66, 68. ? Method: Cervista HPV HR (High Risk) DNA test. ----- ------- ORDER QUERIES: LMP: ? - POSTMENO ? Post ?PREVIOUS ATYPICAL: ?? BCP/HRT? ?? Rad Rx? ?? IUD?PAP PLUS HPV? Y ??REFLEX TO HR-HPV IF ASCUS ?? REFLEX TO HPV 16/18 IF HPV POS/PAP NEG Y HPV REGARDLESS?RFLX HPV IF LSIL ?? Signed Vy Wins[facility] CT(ASCP) 11/18/18 By the signature above, the attending physician certifies that he/she has personally conducted a gross and/or microscopic examination of the described specimens and rendered or confirmed the above diagnosis. Test Performed by [facility], [address] [place] [address] Ehs Engineer: Viviane Romero MD PHD ----- ------- Angela Cotto MD PATHOLOGY ORDERABLES [facility] documented in this encounter Visit Diagnoses Not on filedocumented in this encounter Care Teams Production Recorder Relationship Specialty Start Date End Date Ethel Cunningham MD [address] [place] [phone] PCP - General 07/21/12 10/25/20 documented as of this encounter
--- OUTSIDE RECORDS SUMMARY | 2023-10-16 01:29 | XMS_ITS | Encounter Summary ---
Author Organization [facility] Address [address] [place] [address] Care Team Providers Care Boring Inspector Name Role Phone Ethel Cunningham MD Primary Care Provider [phone] Encounter Details Date Type Department Care Team (Latest Contact Info) Description 05/27/2018 10:10 EST - 05/27/2018 23:59 EST Hospital Encounter [address] [address] Unknown, Provider, Discharge Disposition: Home or Self Care Social History Tobacco Use Types Packs/Day Years Used Date Smoking Tobacco: Never Assessed Sex and Gender Information Value Date Recorded Sex Assigned at Not on file Gender Identity Not on file Sexual Orientation Not on file documented as of this encounter Discharge Disposition Disposition Code Departure Means Destination Home or Self [facility] documented in this encounter Plan of Treatment Not on file documented as of this encounter Visit Diagnoses Not on filedocumented in this encounter Care Teams Boring Inspector Relationship Specialty Start Date End Date Ethel Cunningham MD [address] [place] [address] PCP - General 07/21/12 10/25/20 documented as of this encounter
--- OUTSIDE RECORDS SUMMARY | 2023-10-16 01:29 | XMS_ITS | Encounter Summary ---
Author Organization [facility] Address [address] [place] [address] Care Team Providers Care Open Hearth Worker Name Role Phone Ethel Cunningham MD Primary Care Provider [phone] Encounter Details Date Type Department Care Team (Late st Contact Info) Description 10/06/2020 Results Only [facility] - [facility] Lab - Main [address] [address] Angela Cotto MD [address] [place] [phone] Social History Tobacco Use Types Packs/Day [...] Associated Diagnosis Comments COMPREHENSIVE METABOLIC POC - [facility] Routine 10/06/2020 12:16 EDT GLYCOHEMOGLOBIN POC - CV Routine 10/06/2020 12:16 EDT FREE T4 POC - [facility] Routine 10/06/2020 12 :16 EDT THYROID STIM HORMONE POC - CV Routine 10/06/2020 12:16 EDT MAGNESIUM POC - [facility] Routine 10/06/2020 12:16 EDT URIC ACID Routine 10/06/2020 9:00 EDT documented in this encounter Results * THYROID STIM HORMONE POC - CV (10/06/2020 12:16 EDT) [facility] THYROID STIM HORMONE - CV 2.92 0.45 - 5.33 UIU/ML 10/06/2020 12:17 EDT [facility] 10/06/2020 12:1 6 EDT 10/06/2020 12:16 EDT [facility] - 10/06/2020 12:17 EDT CHRONIC RENAL IMPAIRMENT IS DEFINED GFR <60 MULTIPLY RESULT BY 1.210 FOR PATIENTS EGFR CALCULATED USING THE IDMS-TRACEABLE MDRD STUDY Angela Cotto MD CHEMISTRY & BLOOD GA S ORDERABLES [facility] [address] [place] [address] * MAGNESIUM POC - CV (10/06/2020 12:16 EDT) [facility] Magnesium 1.90 1.60 - 2.30 MG/DL 10/06/2020 12:17 EDT [facility] 10/06/2020 12:1 6 EDT 10/06/2020 12:16 EDT [facility] - 10/06/2020 12:17 EDT CHRONIC RENAL IMPAIRMENT IS DEFINED GFR <60 MULTIPLY RESULT BY 1.210 FOR PATIENTS EGFR CALCULATED USING THE IDMS-TRACEABLE MDRD STUDY Angela Cotto MD CHEMISTRY & BLOOD GA S ORDERABLES [facility] [address] [place] [address] * (ABNORMAL) GLYCOHEMOGLOBIN POC - CV (10/06/2020 12:16 EDT) [facility] Hemoglobin A1c 6.3(H) 4.0 - 6.0 % 10/06/2020 12:17 EDT [facility] AVG CALCULATED GLUCOSE - [facility] 130(H) 60 - 115 MG/DL 10/06/2020 12:17 EDT [facility] 10/06/2020 12:1 6 EDT 10/06/2020 12:16 EDT Narrative [facility] - 10/06/2020 12:17 EDT CHRONIC RENAL IMPAIRMENT IS DEFINED GFR <60 MULTIPLY RESULT BY 1.210 FOR PATIENTS EGFR CALCULATED USING THE IDMS-TRACEABLE MDRD STUDY Angela Cotto MD CHEMISTRY & BLOOD GA S ORDERABLES Performing Organization Address [facility] Co de Phone Number [facility] [address] [place] [address] * FREE T4 POC - CV (10/06/2020 12:16 EDT) [facility] FREE T4 - [facility] 0.71 0.58 - 1.64 NG/DL 10/06/2020 12:17 EDT [facility] Comment:THE RESULTS OF THIS ASSAY CAN BE FALSELY ELEVATED DUE TO THE CONSUMPTION OF BIOTIN 10/06/2020 12:1 6 EDT 10/06/2020 12:16 EDT [facility] - 10/06/2020 12:17 EDT CHRONIC RENAL IMPAIRMENT IS DEFINED GFR <60 MULTIPLY RESULT BY 1.210 FOR PATIENTS EGFR CALCULATED USING THE IDMS-TRACEABLE MDRD STUDY Angela Cotto MD CHEMISTRY & BLOOD GA S ORDERABLES Performing Organization Address [facility]/ZIP Co de Phone Number [facility] [address] [place] [address] * (ABNORMAL) COMPREHENSIVE METABOLIC POC - [facility] (10/06/2020 12:16 EDT) [facility] Albumin % 4.2 3.50 - 5.00 G/DL [facility]KAL[facility] - [facility] 105 38.00 - 126.00 U/L 10/06/2020 12:17 [facility] BILIRUBIN TOTAL 0.5 0.20 - 1.30 MG/DL 10/06/2020 12:17 [facility] BUN - [facility] 17 7.00 - 20.00 MG/DL 10/06/2020 12:17 [facility] CALCIUM - [facility] 9.6 8.50 - 10.50 MG/DL 10/06/2020 12:17 [facility] Chloride 101 98.00 - 107.00 MMOL/L 10/06/2020 12:17 [facility] CO2 Total 32(H) 22.00 - 30.00 MMOL/L 10/06/2020 12:17 [facility] CREATININE 0.9 0.70 - 1.50 MG/DL 10/06/2020 12:17 [facility] Anion Gap 6(L) 7 - 17 10/06/2020 12:17 [facility] GLUCOSE - [facility] 131(H) 70.00 - 100.00 MG/DL 10/06/2020 12:17 [facility] Potassium 4.1 3.50 - 5.10 MMOL/L 10/06/2020 12:17 [facility] Sodium 139 137.00 - 145.00 MMOL/L 10/06/2020 12:17 [facility] TOTAL PROTEIN - [facility] 7.0 6.30 - 8.20 G/DL 10/06/2020 12:17 [facility] SGOT/AST - [facility] 30 15.00 - 46.00 U/L 10/06/2020 12:17 [facility] SGPT/ALT - [facility] 33 0.00 - 35.00 U/L 10/06/2020 12:17 [facility] 10/06/2020 12:1 6 EDT 10/06/2020 12:16 [facility] - 10/06/2020 12:17 EDT CHRONIC RENAL IMPAIRMENT IS DEFINED GFR <60 MULTIPLY RESULT BY 1.210 FOR PATIENTS EGFR CALCULATED USING THE IDMS-TRACEABLE MDRD STUDY Angela Cotto MD CHEMISTRY & BLOOD GA S ORDERABLES Performing Organization Address City/[facility]/ZIP Co de Phone Number [facility] [address] [place] [phone] * (ABNORMAL) URIC ACID (10/06/2020 9:00 EDT) URIC ACID - [facility] 9.6(H) 2.2 - 7.7 mg/dL 10/06/2020 13:49 EDT [facility] 10/06/2020 9:00 EDT 10/06/2020 13:07 EDT Narrative [facility] - 10/06/2020 13:49 EDT Does PT Have a Latex Allergy? NO Angela Cotto MD CHEMISTRY & BLOOD GA S ORDERABLES Performing Organization Address [facility] Co de Phone Number [facility] [address] [place] [address] documented in this encounter Visit Diagnoses Not on filedocumented in this encounter Care Teams Open Hearth Worker Relationship Specialty Start Date End Date Ethel Cunningham MD [address] [place] [address] PCP - General 07/21/12 10/25/20 documented as of this encounter
--- OUTSIDE RECORDS SUMMARY | 2023-10-16 01:29 | XMS_ITS | Encounter Summary ---
Author Organization [facility] Address [address] [place] [address] Care Team Providers Care President & Ceo Name Role Phone Ethel Cunningham MD Primary Care Provider [phone] Encounter Details Date Type Department Care Team (Late st Contact Info) Description 10/28/2018 Historical Results Only [facility] - [address] [address] Angela Cotto MD [address] [place] [phone] Social History Tobacco Use Types Packs/Day [...] Associated Diagnosis Comments LIPID PANEL POC - [facility] Routine 10/28/2018 11:35 EDT documented in this encounter Results * (ABNORMAL) LIPID PANEL POC - [facility] (10/28/2018 11:35 EDT) Triglyceride 331(H) 0.00 - 150.00 MG/DL 10/28/2018 11:[address] [facility] Cholesterol 175 0.00 - 200.00 MG/DL 10/28/2018 11:[address] [facility] HDL 43 40.00 - 60.00 MG/DL 10/28/2018 11:[address] [facility] 10/28/2018 11:3 5 EDT 10/28/2018 11:35 EDT Angela Cotto MD CHEMISTRY & BLOOD GA S ORDERABLES [facility] documented in this encounter Visit Diagnoses Not on filedocumented in this encounter Care Teams President & Ceo Relationship Specialty Start Date End Date Ethel Cunningham MD [address] [place] [address] PCP - General 07/21/12 10/25/20 documented as of this encounter
--- OUTSIDE RECORDS SUMMARY | 2023-10-16 01:29 | XMS_ITS | Encounter Summary ---
Author Organization [facility] Address [address] [place] [address] Care Team Providers Care Weatherization Installer Name Role Phone Ethel Cunningham MD Primary Care Provider [phone] Encounter Details Date Type Department Care Team (Late st Contact Info) Description 11/26/2017 Historical Results Only [facility] Lab - [address] [address] Rhonda Doshi, PA [address] [place] [phone] Social History Tobacco Use Types [...] Associated Diagnosis Comments LIPID PANEL POC - [facility] Routine 11/26/2017 12:10 EDT documented in this encounter Results * (ABNORMAL) LIPID PANEL POC - [facility] (11/26/2017 12:10 EDT) Triglyceride 433(H) 0.00 - 150.00 MG/DL 11/26/2017 12:11 EDT [facility] Comment:TRIGLYCERIDES >400 M G/DL, LDL CALCULATION NOT VALID Cholesterol 217(H) 0.00 - 200.00 MG/DL 11/26/2017 12:11 EDT [facility] HDL 39(L) 40.00 - 60.00 MG/DL 11/26/2017 12:11 EDT [facility] 11/26/2017 12:1 0 EDT 11/26/2017 12:10 EDT Rhonda BENTLEY CHEMISTRY & BLOOD GA S ORDERABLES [facility] documented in this encounter Visit Diagnoses Not on filedocumented in this encounter Care Teams Weatherization Installer Relationship Specialty Start Date End Date Ethel Cunningham MD [address] [place] [phone] PCP - General 07/21/12 10/25/20 documented as of this encounter
--- OUTSIDE RECORDS SUMMARY | 2023-10-16 01:29 | XMS_ITS | Encounter Summary ---
Author Organization [facility] Address [address] [place] [address] Care Team Providers Care Spinner Continuous Name Role Phone Angela Cotto MD Primary Care Provider [phone] Reason for Referral * Cardiology (Routine/Next Available) - Specialty Report Received Specialty Diagnoses / Procedures Referred By Shyam agarwal Referred To Contact Diagnoses Ischemic cardiomyopathy Procedures TRANSTHORACIC ECHO (TTE) COMPLETE MD ECHO HEART XTHORACIC,COMPLETE W DOPPLER Gerry Hall MD [address] [address] Referral ID Status Reason Start Date Expiration Date V isits Requested Visits Authorized [id number] Specialty Report Received 02/13/2021 1 1 Reason for Visit * Cardiology (Routine/Next Available) - Specialty Report Received Specialty Diagnoses / Procedures Referred By Shyam agarwal Referred To Contact Diagnoses Ischemic cardiomyopathy Procedures TRANSTHORACIC ECHO (TTE) COMPLETE MD ECHO HEART XTHORACIC,COMPLETE W DOPPLER Gerry Hall MD 130 [facility] [address] [address] Referral ID Status Reason Start Date Expiration Date V isits Requested Visits Authorized [id number] Specialty Report Received 02/13/2021 1 1 Encounter Details Date Type Department Care Team (Latest Contact Info) Description 02/15/2021 12:46 EST - 02/15/2021 15:23 EST Hospital Encounter [facility] [place] [facility] [place] [address] [place] [address] Ischemic cardiomyopathy Discharge Disposition: Home or Self Care Social [...] Blood Pressure 157/87 02/15/2021 1405 EST Pulse - - Temperature - - Respiratory Rate - - Oxygen Saturation - - Inhaled Oxygen Concentration - - Weight 69.9 kg (154 lb) 02/15/2021 1405 EST Height 162.6 cm (5' 4) 02/15/2021 1405 EST Body Mass Index 26.43 02/15/2021 1405 EST documented in this encounter Functional Status Functional Status Response [...] Procedure Name Priority Date/Time Associated Diagnosis Comments TRANSTHORACIC ECHO (TTE) COMPLETE Routine 02/15/2021 14:00 EST Ischemic cardiomyopathy documented in this encounter Results * TRANSTHORACIC ECHO (TTE) COMPLETE W/DOPPLER W/CF W/ CONTRAST (02/15/2021 14:00 EST) LV ID, ED, PLAX 7.0 3.5 - 6.0 cm [facility] LV ID, ES, PLAX 6.5 2.1 - 4.0 cm [facility] IVS thickness, ED, PLAX 0.8 cm [facility] LV PW thickness, ED, PLAX 1.0 0.6 - 1.1 cm [facility] LV ejection fraction, 1-p A4C 34 % [facility] LV end-diastolic volume, 1-p A4C 289 ml [facility] LV ejection fraction, 1-p A2C 22 % [facility] LV end diastolic volume 1-p A2C 236 ml [facility] EF 31 % [facility] LVOT ID, S 2.1 cm [facility] LVOT area 3.5 cm2 [facility] LVOT peak velocity, S 0.8 m/s [facility] LVOT mean velocity, S 0.4 m/s [facility] LVOT VTI, S 9.7 cm [facility] AV LVOT peak gradient 3 mmHg [facility] LVOT mean gradient, S 1 mmHg [facility] Stroke volume (SV), LVOT DP 34 ml [facility] Stroke index (SV/bsa) LVOT DP 19.0 ml/m2 [facility] LV Diastolic Volume 282 mL [facility] LV Systolic Volume 194 mL [facility] LVIDD BY MMODE 7.0 cm [facility] LV e', medial 0.05 m/s [facility] LV E/e', medial 0.0 [facility] LA ID, A-P, ES 3.9 cm [facility] LA ID/bsa, A-P 2.2 cm/m2 [facility] LA Atrial Area A4C 21.0 cm2 [facility] LA Atrial Area A2C 21.0 cm2 [facility] LA volumes, ES, A4C 57.0 ml [facility] LA volume/bsa, ES, A4C 32.0 ml/m2 [facility] LA volume, ES, BP 57.0 ml [facility] LA volume/bsa, ES, BP 32.0 ml/m2 [facility] LA/aortic root ratio 1.26 [facility] LA Atrial Length A4C 5.8 cm [facility] LA Atrial Length A2C 5.8 cm [facility] O TAPSE 18.00 cm [facility] Aortic valve peak velocity, S 1.3 m/s [facility] Aortic valve mean velocity, S 0.8 m/s [facility] Aortic valve VTI, S 17.0 cm [facility] Aortic valve area VTI 2.0 cm2 [facility] Aortic valve area, peak velocity 2.3 cm2 [facility] Aortic peak gradient, S 6 mmHg [facility] Aortic mean gradient, S 3 mmHg [facility] AV DOI 0.66 [facility] Velocity ratio, mean, LVOT/AV 0.49 [facility] AVAI Pk Brock 1 cm2/m2 [facility] Aortic root ID 3.1 cm [facility] Ascending aorta ID, a-p 3.5 cm [facility] Mitral Regurgitant Velocity Time Integral 146.0 cm [facility] LV Diastolic Volume Index 160.0 mL/m2 [facility] LV Systolic Volume Index 110.0 mL/m2 [facility] Mr max brock 5.18 m/s [facility] AV dimensionless index (DI) 1.1 [facility] Aortic valve area 1.7 cm2 [facility] Pulmonic valve mean velocity, S 0 cm/s [facility] Interventricular Septum to Posterior Wall Thickness Ratio 0.8 [facility] Anatomical Region Laterality Modality Ultrasound Narrative 02/15/2021 14:40 EST ?Left??Ventricle: The left ventricular cavity was severely dilated in size. Left ventricular systolic function was severely decreased with an ejection fraction of 25-30%. Left ventricular wall thickness was normal. There was diffuse hypokinesis with regional abnormalities. There was akinesis of the apex. There was no left ventricular thrombus. ?Left??Atrium: Left atrial cavity was mildly dilated. ?Mitral??Valve: There was severe mitral regurgitation with a centrally directed jet. ?Right??Ventricle: The right ventricular cavity was normal in size. Right ventricular systolic function was normal. Right ventricular wall thickness was normal. ?IVC/SVC: The inferior vena cava demonstrated a diameter of ??<=21 mm and collapses >50%. ?Pericardium: A small pericardial effusion was identified anterior to the heart. There was right atrial inversion. The pericardium was thickened. Left Ventricle The left ventricular cavity was severely dilated in size. Left ventricular systolic function was severely decreased with an ejection fraction of 25-30%. Findings consistent with left ventricular diastolic dysfunction. Left ventricular wall thickness was normal. There was diffuse hypokinesis with regional abnormalities. There was akinesis of the apex. There was no left ventricular thrombus. Right Ventricle The right ventricular cavity was normal in size. Right ventricular systolic function was normal. Right ventricular wall thickness was normal. Left Atrium Left atrial cavity was mildly dilated. Right Atrium The right atrium was normal in size. IVC/SVC The inferior vena cava demonstrated a diameter of <=21 mm and collapses >50%; therefore, the right atrial pressure is estimated at 0-5 mmHg. Mitral Valve There was severe mitral regurgitation with a centrally directed jet. There was no significant mitral valve stenosis. Tricuspid Valve There was trace tricuspid valve regurgitation. Aortic Valve The aortic valve structure was trileaflet. The aortic leaflets mildly calcified. There was no aortic valve stenosis. There was no aortic valve regurgitation. AV Peak Gradient: 6mmHg. AV Mean Gradient: 3mmHg. AV Area VTI: 2.0. Pulmonic Valve The pulmonic valve was not well visualized. Ascending Aorta The aortic root was normal in size. The ascending aorta was normal in size. Pericardium A small pericardial effusion was identified anterior to the heart. There was right atrial inversion. The pericardium was thickened. Pulmonic Artery Unable to assess PA pressure. Study Details Scanning was performed from the apical, parasternal, subcostal and suprasternal acoustic windows. Definity contrast was used during the study. Overall the study quality was adequate. Gerry Hall MD CARDIAC ECHO ORDERAB LES documented in this encounter Visit Diagnoses Diagnosis Ischemic cardiomyopathy Other specified forms of chronic ischemic heart disease documented in this encounter Orders Medications Ordered That Marcel ht Not Have Been Administered Count Last Ordered Date First Ordered Date perflutren lipid microsphere s (DEFINITY) 0.165 mg in sodium chloride (PF) 1 mL 1 02/15/2021 documented in this encounter Care Teams Spinner Continuous Relationship Specialty Start Date End Date Angela Cotto MD [address] [place] [phone] PCP - General Family Medicine - Primary Care 10/26/20 documented as of this encounter
--- OUTSIDE RECORDS SUMMARY | 2023-10-16 01:29 | XMS_ITS | Encounter Summary ---
Author Organization [facility] Address [address] [place] [address] Care Team Providers Care Java Developer Architect Name Role Phone Ethel Cunningham MD Primary Care Provider [phone] Encounter Details Date Type Department Care Team (Late st Contact Info) Description 07/22/2019 Results Only [facility] - [address] [address] Angela Cotto MD [address] [place] [phone] Social History Tobacco Use Types Packs/Day Years Used Date Smoking Tobacco: Never Assessed Sex and Gender Information Value Date Recorded Sex Assigned at Not on file Gender Identity Not on file Sexual Orientation Not on file documented as of this encounter Plan of Treatment Not on file documented as of this encounter Procedures Procedure Name Priority Date/Time Associated Diagnosis Comments [address] - [facility] [place] Routine 07/22/2019 14 :12 EDT documented in this encounter Results * [place] [id number] POC - [facility] [place] (07/22/2019 14:12 EDT) [place] [address],[facility] 3.53 2.40 - 4.00 PG/ML 07/22/2019 14:13 EDT [facility] Comment:THE RESULTS OF THIS ASSAY CAN BE FALSELY ELEVATED DUE TO THE CONSUMPTION OF BIOTIN 07/22/2019 14:1 2 EDT 07/22/2019 14:12 EDT Narrative [facility] - 07/22/2019 14:13 EDT CHRONIC RENAL IMPAIRMENT IS DEFINED GFR <60 MULTIPLY RESULT BY 1.210 FOR PATIENTS EGFR CALCULATED USING THE IDMS-TRACEABLE MDRD STUDY Angela Cotto MD CHEMISTRY & BLOOD GA S ORDERABLES [facility] documented in this encounter Visit Diagnoses Not on filedocumented in this encounter Care Teams Java Developer Architect Relationship Specialty Start Date End Date Ethel Cunningham MD [address] [place] [phone] PCP - General 07/21/12 10/25/20 documented as of this encounter
--- OUTSIDE RECORDS SUMMARY | 2023-10-16 01:29 | XMS_ITS | Encounter Summary ---
Author Organization [facility] Address [address] [place] [address] Care Team Providers Care Records Management Analyst Name Role Phone Ethel Cunningham MD Primary Care Provider [phone] Encounter Details Date Type Department Care Team (Late st Contact Info) Description 04/08/2018 Historical Results Only [facility] - [facility] [place] Lab - [address] [address] Rhonda Doshi PA [address] [place] [phone] Social History Tobacco Use Types [...] Date/Time Associated Diagnosis Comments POCT CHOLESTEROL LDL ([facility] [place]) Routine 04/08/2018 11:12 EST documented in this encounter Results * POCT CHOLESTEROL LDL ([facility] [place]) (04/08/2018 11:12 EST) LDL CHOLESTEROL - [facility] [place] 88 60 - 100 MG/DL 04/08/2018 11:[address] [facility] 04/08/2018 11:1 2 EST 04/08/2018 11:12 EST Rhonda C Bylow PA POINT OF CARE TEST O RDERABLES [facility] documented in this encounter Visit Diagnoses Not on filedocumented in this encounter Care Teams Records Management Analyst Relationship Specialty Start Date End Date Ethel Cunningham MD [address] [place] [address] PCP - General 07/21/12 10/25/20 documented as of this encounter
--- OUTSIDE RECORDS SUMMARY | 2023-10-16 01:29 | XMS_ITS | Encounter Summary ---
Author Organization [facility] Address [address] [place] [address] Care Team Providers Care Technology Intern Name Role Phone Ethel Cunningham MD Primary Care Provider Encounter Details Date Type Department Care Team (Late st Contact Info) Description 03/03/2019 Results Only [facility] - [address] [address] Angela Cotto MD [address] [place] [phone] Social History Tobacco Use Types Packs/Day [...] Associated Diagnosis Comments COMPREHENSIVE METABOLIC POC - [facility] [place] Routine 03/03/2019 13:18 EST documented in this encounter Results * (ABNORMAL) COMPREHENSIVE METABOLIC POC - [facility] [place] (03/03/2019 13:18 EST) Albumin % 4.4 3.50 - 5.00 G/DL 03/03/2019 13:19 EST [facility] ALKALINE PHOSPHATASE - [facility] 86 38.00 - 126.00 U/L 03/03/2019 13:19 EST [facility] BILIRUBIN TOTAL 0.4 0.20 - 1.30 MG/DL 03/03/2019 13:19 [facility] BUN - [facility] 19 7.00 - 20.00 MG/DL 03/03/2019 13:19 [facility] CALCIUM - [facility] [place] 9.7 8.50 - 10.50 MG/DL 03/03/2019 13:19 [facility] Chloride 102 98.00 - 107.00 MMOL/L 03/03/2019 13:19 [facility] CO2 Total 32(H) 22.00 - 30.00 MMOL/L 03/03/2019 13:19 [facility] CREATININE 0.8 0.70 - 1.50 MG/DL 03/03/2019 13:19 [facility] Anion Gap 8 7 - 17 03/03/2019 13:19 [facility] GLUCOSE - [facility] 93 70.00 - 100.00 MG/DL 03/03/2019 13:19 [facility] Potassium 4.4 3.50 - 5.10 MMOL/L 03/03/2019 13:19 [facility] Sodium 142 137.00 - 145.00 MMOL/L 03/03/2019 13:19 [facility] TOTAL PROTEIN - [facility] 7.2 6.30 - 8.20 G/DL 03/03/2019 13:19 [facility] SGOT/AST - [facility] 22 15.00 - 46.00 U/L 03/03/2019 13:19 [facility] SGPT/ALT - [facility] [place] 32 13.00 - 69.00 U/L 03/03/2019 13:19 [facility] 03/03/2019 13:1 8 EST 03/03/2019 13:18 [facility] - 03/03/2019 13:19 [facility] CHRONIC RENAL IMPAIRMENT IS DEFINED GFR <60 MULTIPLY RESULT BY 1.210 FOR PATIENTS EGFR CALCULATED USING THE IDMS-TRACEABLE MDRD STUDY Angela Cotto MD CHEMISTRY & BLOOD GA S ORDERABLES [facility] documented in this encounter Visit Diagnoses Not on filedocumented in this encounter Care Teams Technology Intern Relationship Specialty Start Date End Date Ethel Cunningham MD [address] [place] [phone] PCP - General 07/21/12 10/25/20 documented as of this encounter
--- OUTSIDE RECORDS SUMMARY | 2023-10-16 01:29 | XMS_ITS | Encounter Summary ---
Author Organization [facility] Address [address] [place] [address] Care Team Providers Care Bottle Filler Name Role Phone Ethel Cunningham MD Primary Care Provider Encounter Details Date Type Department Care Team (Late st Contact Info) Description 05/27/2018 Historical Results Only [facility] Radiology Results [address] [place] [address] Angela Cotto MD [address] [place] [phone] Social History Tobacco Use Types Packs/Day Years Used Date Smoking Tobacco: Never Assessed Sex and Gender Information Value Date Recorded Sex Assigned at Not on file Gender Identity Not on file Sexual Orientation Not on file documented as of this encounter Plan of Treatment Not on file documented as of this encounter Procedures Procedure Name Priority Date/Time Associated Diagnosis Comments CT CHEST LOW DOSE LUNG SCREENING 05/27/2018 15:[address] CHEST LOW DOSE LUNG SCREENING 05/27/2018 10:20 EST documented in this encounter Results * CT CHEST LOW DOSE LUNG SCREENING (05/27/2018 15:07 EST) Anatomical Region Laterality Modality Chest Other 05/27/2018 15:0 7 EST Narrative 05/27/2018 15:08 EST ? EXAM: CAT SCAN/CHEST LOW DOSE LUNG SCREEN EX. D/ (1020) ? CLINICAL INFORMATION: ? F17.210 CURRENT SMOKER ? 1 PPD X 45 YRS = 45 PACK YEAR HX ? NO SIGNS OR SX'S OF LUNG CA OR URI ? CESSATION GUIDANCE PROVIDED, SHARED DECISION ? CHEST LOW DOSE LUNG SCREENING ??05/27/2018 2:48 PM ? Clinical History/Comments: ? current smoker 1ppd x 45 yrs = 45 pack year hx , no signs or sx's of ? lung ca or uri cessation guidance provided , shared decision ? Technique: ? A single breath-hold helical CT acquisition was performed through ? the chest on a multidetector-row scanner with a reconstructed slice ? thickness of 3 mm and retrospectively reconstructed 0.9 mm thick ? sections with 0.45 mm overlapping intervals. ??The scans were ? obtained from the lung apices through the bases without IV contrast. ? Dose was adjusted between 1.0 and 1.5 milliSieverts for low dose ? screening purposes. Scans were reviewed on a dedicated PACS ? workstation for analysis. ? Comparison: ? None ? Findings: ? Lung Screening Specific (LungRADS) findings: ? *No nodules ? Potentially Significant Incidentals (LungRADS Category S): None ? Pulmonary Incidentals: Emphysema and airways thickening. ? Scarring/atelectasis in the lung bases ? Other incidentals: The aorta and coronary arteries are heavily ? calcified and there is also soft plaque throughout the aorta. The ? descending aorta is a few slightly dilated to a maximum of 4.2 cm. ? Old rib fractures are present bilaterally. ? ACR Reportable Incidentals: ??Coronary Arterial Calcification - Severe ? Impression: ? 1. LungRADS category 1 (Negative) ??Findings: ??No nodules or ? definitely benign nodules (calcified granulomas). ? 2. LungRADS category S: ??Negative, no new or potentially significant ? incidental findings requiring urgent additional evaluation. ? 3. Coronary atherosclerosis ? Recommendations: ? Routine low dose CT lung screening. ??Suggest next low dose CT exam ? or follow up on or around 12 months from today. ? This report utilizes the CT Lung Screening Reporting and Data System ? (ACR LungRADS version 1.0) as below: ? PAGE 1 ? Signed Report ? (CONTINUED) ? Category 0: Incomplete (part or all of lung cannot be evaluated, or ? prior chest CT being located for comparison) ? Category 1: Negative (no nodules or definitely benign nodules) ? Category 2: Benign appearance or behavior (nodules with very low ? likelihood of becoming a clinically active cancer, risk of ? malignancy <1%) ? Category 3: Probably benign (probably benign finding - short term ? follow up suggested, risk of malignancy 1-2%) ? Category 4: Suspicious (additional diagnostic testing or tissue ? sampling recommended) ? Modifiers to Categories 1-4: ? Category C: Prior diagnosis of lung cancer returning to screening ? Category S: Potentially significant ancillary finding requiring ? urgent additional evaluation. ? REPORT SIGNED IN OTHER VENDOR SYSTEM 05/27/2018 ?Reported By: Pranay Gonzales MD ? CC: ? Transcribed Date/Time: 05/27/2018 (1508) ? Rental Salesperson: ? Printed Date/Time: 09/14/2018 (2317) ? PAGE 2 ? Signed Report ? Procedure Note Pranay Gonzales MD - 01/29/2019 EXAM: CAT SCAN/CHEST LOW DOSE LUNG SCREEN EX. D/ (1020) CLINICAL INFORMATION: F17.210 CURRENT SMOKER 1 PPD X 45 YRS = 45 PACK YEAR HX NO SIGNS OR SX'S OF LUNG CA OR URI CESSATION GUIDANCE PROVIDED, SHARED DECISION CHEST LOW DOSE LUNG SCREENING 05/27/2018 2:48 PM Clinical History/Comments: current smoker 1ppd x 45 yrs = 45 pack year hx , no signs or sx's of lung ca or uri cessation guidance provided , shared decision Technique: A single breath-hold helical CT acquisition was performed through the chest on a multidetector-row scanner with a reconstructed slice thickness of 3 mm and retrospectively reconstructed 0.9 mm thick sections with 0.45 mm overlapping intervals. The scans were obtained from the lung apices through the bases without IV contrast. Dose was adjusted between 1.0 and 1.5 milliSieverts for low dose screening purposes. Scans were reviewed on a dedicated PACS workstation for analysis. Comparison: None Findings: Lung Screening Specific (LungRADS) findings: *No nodules Potentially Significant Incidentals (LungRADS Category S): None Pulmonary Incidentals: Emphysema and airways thickening. Scarring/atelectasis in the lung bases Other incidentals: The aorta and coronary arteries are heavily calcified and there is also soft plaque throughout the aorta. The descending aorta is a few slightly dilated to a maximum of 4.2 cm. Old rib fractures are present bilaterally. ACR Reportable Incidentals: Coronary Arterial Calcification -Severe Impression: 1. LungRADS category 1 (Negative) Findings: No nodules or definitely benign nodules (calcified granulomas). 2. LungRADS category S: Negative, no new or potentially significant incidental findings requiring urgent additional evaluation. 3. Coronary atherosclerosis Recommendations: Routine low dose CT lung screening. Suggest next low dose CT exam or follow up on or around 12 months from today. This report utilizes the CT Lung Screening Reporting and Data System (ACR LungRADS version 1.0) as below: PAGE 1 Signed Report (CONTINUED) Category 0: Incomplete (part or all of lung cannot be evaluated, or prior chest CT being located for comparison) Category 1: Negative (no nodules or definitely benign nodules) Category 2: Benign appearance or behavior (nodules with very low likelihood of becoming a clinically active cancer, risk of malignancy <1%) Category 3: Probably benign (probably benign finding - short term follow up suggested, risk of malignancy 1-2%) Category 4: Suspicious (additional diagnostic testing or tissue sampling recommended) Modifiers to Categories 1-4: Category C: Prior diagnosis of lung cancer returning to screening Category S: Potentially significant ancillary finding requiring urgent additional evaluation. REPORT SIGNED IN OTHER VENDOR SYSTEM 05/27/2018 Reported By: Pranay Gonzales MD CC: Transcribed Date/Time: 05/27/2018 (1508) Rental Salesperson: [facility] Printed Date/Time: 09/14/2018 (2820) PAGE 2 Signed Report Angela Cotto MD IMG CT ORDERABLES * CT CHEST LOW DOSE LUNG SCREENING (05/27/2018 10:20 EST) Anatomical Region Laterality Modality Chest Other 05/27/2018 10:2 0 EST Narrative 05/27/2018 15:07 EST ? EXAM: CAT SCAN/CHEST LOW DOSE LUNG SCREEN EX. D/ (1020) ? CLINICAL INFORMATION: ? F17.210 CURRENT SMOKER ? 1 PPD X 45 YRS = 45 PACK YEAR HX ? NO SIGNS OR SX'S OF LUNG CA OR URI ? CESSATION GUIDANCE PROVIDED, SHARED DECISION ? CHEST LOW DOSE LUNG SCREENING ??05/27/2018 2:48 PM ? Clinical History/Comments: ? current smoker 1ppd x 45 yrs = 45 pack year hx , no signs or sx's of ? lung ca or uri cessation guidance provided , shared decision ? Technique: ? A single breath-hold helical CT acquisition was performed through ? the chest on a multidetector-row scanner with a reconstructed slice ? thickness of 3 mm and retrospectively reconstructed 0.9 mm thick ? sections with 0.45 mm overlapping intervals. ??The scans were ? obtained from the lung apices through the bases without IV contrast. ? Dose was adjusted between 1.0 and 1.5 milliSieverts for low dose ? screening purposes. Scans were reviewed on a dedicated PACS ? workstation for analysis. ? Comparison: ? None ? Findings: ? Lung Screening Specific (LungRADS) findings: ? *No nodules ? Potentially Significant Incidentals (LungRADS Category S): None ? Pulmonary Incidentals: Emphysema and airways thickening. ? Scarring/atelectasis in the lung bases ? Other incidentals: The aorta and coronary arteries are heavily ? calcified and there is also soft plaque throughout the aorta. The ? descending aorta is a few slightly dilated to a maximum of 4.2 cm. ? Old rib fractures are present bilaterally. ? ACR Reportable Incidentals: ??Coronary Arterial Calcification - Severe ? Impression: ? 1. LungRADS category 1 (Negative) ??Findings: ??No nodules or ? definitely benign nodules (calcified granulomas). ? 2. LungRADS category S: ??Negative, no new or potentially significant ? incidental findings requiring urgent additional evaluation. ? 3. Coronary atherosclerosis ? Recommendations: ? Routine low dose CT lung screening. ??Suggest next low dose CT exam ? or follow up on or around 12 months from today. ? This report utilizes the CT Lung Screening Reporting and Data System ? (ACR LungRADS version 1.0) as below: ? PAGE 1 ? Signed Report ? (CONTINUED) ? Category 0: Incomplete (part or all of lung cannot be evaluated, or ? prior chest CT being located for comparison) ? Category 1: Negative (no nodules or definitely benign nodules) ? Category 2: Benign appearance or behavior (nodules with very low ? likelihood of becoming a clinically active cancer, risk of ? malignancy <1%) ? Category 3: Probably benign (probably benign finding - short term ? follow up suggested, risk of malignancy 1-2%) ? Category 4: Suspicious (additional diagnostic testing or tissue ? sampling recommended) ? Modifiers to Categories 1-4: ? Category C: Prior diagnosis of lung cancer returning to screening ? Category S: Potentially significant ancillary finding requiring ? urgent additional evaluation. ? REPORT SIGNED IN OTHER VENDOR SYSTEM 05/27/2018 ?Reported By: Pranay Gonzales MD ? CC: ? Transcribed Date/Time: 05/27/2018 (1508) ? Rental Salesperson: ? Printed Date/Time: 09/14/2018 (2317) ? PAGE 2 ? Signed Report ? Angela Cotto MD IMG CT ORDERABLES documented in this encounter Visit Diagnoses Not on filedocumented in this encounter Care Teams Bottle Filler Relationship Specialty Start Date End Date Ethel Cunningham MD [address] [place] [phone] PCP - General 07/21/12 10/25/20 documented as of this encounter
--- OUTSIDE RECORDS SUMMARY | 2023-10-16 01:29 | XMS_ITS | Encounter Summary ---
Author Organization [facility] Address [address] [place] [address] Care Team Providers Care Artificial Candy Maker Name Role Phone Ethel Cunningham MD Primary Care Provider [phone] Encounter Details Date Type Department Care Team (Late st Contact Info) Description 04/08/2018 Historical Results Only [facility] [place] [facility] [place] [address] [address] Rhonda Doshi, PA [address] [place] [address] Social History Tobacco Use Types [...] Associated Diagnosis Comments LIPID PANEL POC [place] [facility] [place] 04/08/2018 11:12 EST documented in this encounter Results * (ABNORMAL) LIPID PANEL POC - [facility] [place] (04/08/2018 11:12 EST) Triglyceride 283(H) 0.00 - 150.00 MG/DL 04/08/2018 11:13 EST [facility] Cholesterol 183 0.00 - 200.00 MG/DL 04/08/2018 11:13 EST [facility] HDL 38(L) 40.00 - 60.00 MG/DL 04/08/2018 11:13 EST [facility] 04/08/2018 11:1 2 EST 04/08/2018 11:12 EST Rhonda BENTLEY CHEMISTRY & BLOOD GA S ORDERABLES [facility] documented in this encounter Visit Diagnoses Not on filedocumented in this encounter Care Teams Artificial Candy Maker Relationship Specialty Start Date End Date Ethel Cunningham MD [address] [place] [address] PCP - General 07/21/12 10/25/20 documented as of this encounter
--- OUTSIDE RECORDS SUMMARY | 2023-10-16 01:29 | XMS_ITS | Encounter Summary ---
Author Organization [facility] Address [address] [place] [address] Care Team Providers Care Pipeline Dispatcher Name Role Phone Angela Cotto MD Primary Care Provider [phone] Reason for Referral * Cardiology (Routine/Next Available) - Specialty Report Received Specialty Diagnoses / Procedures [facility] Referred To Contact Diagnoses Ischemic cardiomyopathy Procedures TRANSTHORACIC ECHO (TTE) COMPLETE NC ECHO HEART XTHORACIC,COMPLETE W DOPPLER Gerry Hall MD [address] [facility] [address] [place] [address] Referral ID Status Reason Start Date Expiration Date V isits Requested Visits Authorized [id number] Specialty Report Received 02/13/2021 1 1 Reason for Visit * Reason Onset Date Comments Pre-visit Orders 02/13/2021 Encounter Details Date Type Department Care Team (Late st Contact Info) Description 02/13/2021 Orders Only [facility] [place] [facility] [address] [place] [address] Gerry Hall MD [address] [place], [place] [address] [address] [place] [address] Ischemic cardiomyopathy (Primary Dx) Social History Tobacco [...] as of this encounter Progress Notes * Nick Portillo - 02/13/2021 0852 EST ECHO sched for 02/15/21; 1300 NPV with Sowmya Og scheduled fro 03/07/21; 1345. Pt aware documented in this encounter Plan of Treatment Not on file documented as of this encounter Results * TRANSTHORACIC ECHO (TTE) [...] specified forms of chronic ischemic heart disease Ischemic cardiomyopathy Other specified forms of chronic ischemic heart disease documented in this encounter Care Teams Pipeline Dispatcher Relationship Specialty Start Date End Date Angela Cotto MD [address] [place] [phone] PCP - General Family Medicine - Primary Care 10/26/20 documented as of this encounter
--- OUTSIDE RECORDS SUMMARY | 2023-10-16 01:29 | XMS_ITS | Encounter Summary ---
Author Organization [facility] Address [address] [place] [address] Care Team Providers Care Cake Washer Name Role Phone Ethel Cunningham MD Primary Care Provider [phone] Encounter Details Date Type Department Care Team (Late st Contact Info) Description 03/03/2019 Results Only [facility] - [facility] [place] [facility] - [address] [address] Angela Cotto MD [address] [place] [phone] Social History Tobacco Use Types Packs/Day Years Used Date Smoking Tobacco: Never Assessed Sex and Gender Information Value Date Recorded Sex Assigned at Not on file Gender Identity Not on file Sexual Orientation Not on file documented as of this encounter Plan of Treatment Not on file documented as of this encounter Procedures Procedure Name Priority Date/Time Associated Diagnosis Comments FREE T4 POC - CV Routine 03/03/2019 13 :18 EST documented in this encounter Results * FREE T4 POC - [facility] (03/03/2019 13:18 EST) FREE T4 - CV 0.62 0.58 - 1.64 NG/DL 03/03/2019 13:19 EST [facility] Comment:THE RESULTS OF THIS ASSAY CAN BE FALSELY ELEVATED DUE TO THE CONSUMPTION OF BIOTIN 03/03/2019 13:1 8 EST 03/03/2019 13:18 EST Narrative [facility] - 03/03/2019 13:19 EST CHRONIC RENAL IMPAIRMENT IS DEFINED GFR <60 MULTIPLY RESULT BY 1.210 FOR PATIENTS EGFR CALCULATED USING THE IDMS-TRACEABLE MDRD STUDY Angela Cotto MD CHEMISTRY & BLOOD GA S ORDERABLES [facility] documented in this encounter Visit Diagnoses Not on filedocumented in this encounter Care Teams Cake Washer Relationship Specialty Start Date End Date Ethel Cunningham MD [address] [place] [address] PCP - General 07/21/12 10/25/20 documented as of this encounter
--- OUTSIDE RECORDS SUMMARY | 2023-10-16 01:29 | XMS_ITS | Encounter Summary ---
Author Organization [facility] Address [address] [place] [address] Care Team Providers Care Color Checker Roving Or Yarn Name Role Phone Ethel Cunningham MD Primary Care Provider [phone] Encounter Details Date Type Department Care Team (Late st Contact Info) Description 07/22/2019 Results Only [facility] [place] [facility] [place] [address] [address] Angela Cotto MD [address] [place] [phone] Social History Tobacco Use Types Packs/Day [...] Diagnosis Comments GLYCOHEMOGLOBIN POC - CV Routine 07/22/2019 14:12 EDT documented in this encounter Results * (ABNORMAL) GLYCOHEMOGLOBIN POC - CV (07/22/2019 14:12 EDT) Hemoglobin A1c 6.1(H) 4.0 - 6.0 % 07/22/2019 14:13 EDT [facility] AVG CALCULATED GLUCOSE - [facility] [place] 123(H) 60 - 115 MG/DL 07/22/2019 14:13 EDT [facility] 07/22/2019 14:1 2 EDT 07/22/2019 14:12 EDT Narrative [facility] - 07/22/2019 14:13 EDT CHRONIC RENAL IMPAIRMENT IS DEFINED GFR <60 MULTIPLY RESULT BY 1.210 FOR PATIENTS EGFR CALCULATED USING THE IDMS-TRACEABLE MDRD STUDY Angela Cotto MD CHEMISTRY & BLOOD GA S ORDERABLES [facility] documented in this encounter Visit Diagnoses Not on filedocumented in this encounter Care Teams Color Checker Roving Or Yarn Relationship Specialty Start Date End Date Ethel Cunningham MD [address] [place] [phone] PCP - General 07/21/12 10/25/20 documented as of this encounter
--- OUTSIDE RECORDS SUMMARY | 2023-10-16 01:29 | XMS_ITS | Encounter Summary ---
Author Organization [facility] Address [address] [place] [address] Care Team Providers Care Cleaner And Polisher Name Role Phone Ethel Cunningham MD Primary Care Provider [phone] Encounter Details Date Type Department Care Team (Late st Contact Info) Description 06/24/2018 Historical Results Only [facility] - [facility] [place] [facility] - [address] [address] Angela Cotto MD [address] [place] [phone] Social History Tobacco Use Types Packs/Day [...] Associated Diagnosis Comments LIPID PANEL POC - [facility] [place] Routine 06/24/2018 13:24 EDT documented in this encounter Results * (ABNORMAL) LIPID PANEL POC - [facility] [place] (06/24/2018 13:24 EDT) Triglyceride 342(H) 0.00 - 150.00 MG/DL 06/24/2018 13:27 EDT [facility] Cholesterol 228(H) 0.00 - 200.00 MG/DL 06/24/2018 13:27 EDT [facility] HDL 39(L) 40.00 - 60.00 MG/DL 06/24/2018 13:27 EDT [facility] 06/24/2018 13:2 4 EDT 06/24/2018 13:24 EDT Angela Cotto MD CHEMISTRY & BLOOD GA S ORDERABLES [facility] documented in this encounter Visit Diagnoses Not on filedocumented in this encounter Care Teams Cleaner And Polisher Relationship Specialty Start Date End Date Ethel Cunningham MD [address] [place] [phone] PCP - General 07/21/12 10/25/20 documented as of this encounter
--- OUTSIDE RECORDS SUMMARY | 2023-10-16 01:29 | XMS_ITS | Encounter Summary ---
Author Organization [facility] Address [address] [place] [address] Care Team Providers Care Building Pressure Washer Name Role Phone Angela Cotto MD Primary Care Provider [phone] Reason for Referral * Radiology Services (Routine/Next Available) - Authorization Not Required Specialty Diagnoses / Procedures Referred By Contac t Referred To Contact Diagnoses ACC/AHA stage C heart failure with reduced ejection fraction (HCC-CMS) SOB (shortness of breath) Procedures XR CHEST 2 VIEWS Gerry Hall MD [address] [place] [address] [address] [place] [phone] [facility] Referral ID Status Reason Start Date Expiration Date Visits Requested Visits Authorized [id number] Authorization Not Required 1 1 1 Reason for Visit * Reason Comments New Patient Visit s/p ECHO * Cardiology (Routine) - Authorization Not Required Specialty Diagnoses / Procedures Referred By Contac t Referred To Contact Cardiology Diagnoses CAD (coronary artery disease) Angela Cotto MD [address] [place] [phone] [facility] [address] [place] [address] Referral ID Status Reason Start Date Expiration Date Visits Requested Visits Authorized [id number] Authorization Not Required 1 1 Encounter Details Date Type Department Care Team (Latest Contact Info) Description 02/15/2021 14:15 EST Office Visit [facility] [address] [place] [address] Gerry Hall MD [address] [facility] [address] [place] [address] ACC/AHA stage C heart failure with reduced ejection fraction (HCC-CMS) ([facility]) (Primary Dx); Ischemic cardiomyopathy; S/P coronary artery stent placement; Prediabetes; Ischemic mitral regurgitation; Mixed hyperlipidemia Social History Tobacco Use Types Packs/Day Years [...] Sign Reading Time Taken Comments Blood Pressure - - Pulse 121 02/15/2021 1411 EST Temperature - - Respiratory Rate - - Oxygen Saturation 93% 02/15/2021 1411 EST Inhaled Oxygen Concentration - - Weight 66.7 kg (147 lb) 02/15/2021 1411 EST Height 162.6 cm (5' 4) 02/15/2021 1411 EST Body Mass Index 25.23 02/15/2021 1411 EST documented in this encounter Functional Status [...] No 02/15/2021 documented as of this encounter Ordered Prescriptions Prescription Sig Dispensed Refills Start Date End Da te metoprolol SUCCinate (TOPROL-XL) 50 mg tablet Take 1 Tablet by mouth 2 times daily for 90 days. 180 Tablet 3 02/15/2021 05/16/2021 losartan (COZAAR) 25 mg tablet Take 1 Tablet by mouth daily for 90 days. 90 Tablet 3 02/15/2021 05/16/2021 documented in this encounter Progress Notes * Gerry Hall MD - 02/15/2021 1415 EST [facility] CARDIOLOGY NEW PATIENT VISIT Date of Service: 02/15/2021 Reason for Visit: ACC/AHA stage C heart failure with reduced ejection fraction (HCC-CMS) ([facility]) [I50.20] Referring Provider: Angela Cotto Primary Care Provider: Angela Cotto SUBJECTIVE PATIENT: Stacy Esparza, 1955 HISTORY OF PRESENT ILLNESS 65 y.o. year-old female with family history of premature CAD, ongoing tobacco smoking, hypothyroidism, pre-diabetes, and ischemic CMP s/p RCA PCI 2012. EF trajectory: 25 => 52% (2012). Until last week active w/o cardiopulmonary limitations. Then sudden onset SOB, no angina. Since then persistent GONZALEZ and palpitations. No PND, edema, near- syncope/sycnope. No viral/bacterial/febrile illness. No prolonged travel. Today's echo showed a severe dilated LV w/ severely reduced function as well as severe functional MR. Continues to smoke. No ethanol. Patient denies F/C/NS, CP, SOB, PND, edema, palpitations, syncope, claudication, focal deficits, bleeding, GI or symptoms. PAST SURGICAL HISTORY Past Surgical History: Procedure Laterality Date ??? CORONARY ANGIOPLASTY WITH STENT PLACEMENT 2012 RCA PCI MEDICATIONS Outpatient Medications Marked as Taking for the 02/15/21 encounter (Office Visit) with Gerry Hall MD Medication Sig ??? acetaminophen (TYLENOL) 325 mg tablet 1 tablet orally as needed ??? aspirin 81 mg EC tablet 1 tab(s) orally once a day ??? atorvastatin (LIPITOR) 80 mg tablet Take 80 mg by mouth daily. ??? cholecalciferol (VITAMIN D3) 1,250 mcg (50,000 unit) capsule 1 cap(s) orally month ??? Coenzyme Q10 100 mg capsule 1 cap(s) orally once a day ??? furosemide (LASIX) 80 mg tablet 1 tab am,1/2 tab pm orally twice daily ??? levothyroxine sodium (LEVOTHYROXINE ORAL) Take by mouth. Unsure dosage ??? metoprolol SUCCinate (TOPROL-XL) 50 mg tablet Take 1 Tablet by mouth 2 times daily for 90 days. ??? [DISCONTINUED] metoprolol SUCCinate (TOPROL-XL) 50 mg tablet Take 50 mg by mouth 2 times daily. ALLERGIES Allergies Allergen Reactions ??? Lisinopril Cough ??? Venom-Honey Bee FAMILY HISTORY: Father w/ CO at 59 yo. SOCIAL HISTORY: Smoker. No alcohol. REVIEW OF SYSTEMS: Performed; pertinent positives and negatives as mentioned above. OBJECTIVE PHYSICAL EXAM Wt Readings from Last 3 Encounters: 02/15/21 66.7 kg (147 lb) 02/15/21 69.9 kg (154 lb) BP Readings from Last 3 Encounters: 02/15/21 (!) 157/87 Pulse Readings from Last 3 Encounters: 02/15/21 (!) 121 GENERAL: Pleasant, no acute distress. HEENT: Anicteric, mucous membranes moist. NECK: Supple, normal jugular venous pressure, brisk carotid upstrokes, no bruits. CHEST: Nontender. LUNGS: Clear to auscultation bilaterally, no rhonchi rales or wheezes. HEART: Regular rate and rhythm, normal S1-S2, no murmurs. ABDOMEN: Soft, nontender, nondistended, bowel sounds present, no bruits. EXTREM: No clubbing, cyanosis, edema, equal pulses. SKIN: Warm and dry, no rashes. NEURO: Alert and oriented x3, grossly intact DIAGNOSTIC DATA Available records including laboratory and cardiac studies reviewed and discussed with patient; pertinent findings as mentioned in HPI and as follows: Lab Results Component Value Date BUN 24 (H) 01/06/2021 CREATININE 0.9 01/06/2021 NA 140 01/06/2021 K 4.3 01/06/2021 MG 1.60 01/06/2021 No results found for: NTBNP, NTBNPEXT, URICACID, URICACIDEXT, HGB Lab Results Component Value Date CHOL 97 01/06/2021 HDL 33 (L) 01/06/2021 LDL 15 (L) 01/06/2021 TRIG 247 (H) 01/06/2021 Lab Results Component Value Date HGBA1C 6.0 01/06/2021 TSH 0.96 01/06/2021 Echocardiogram from today reviewed and interpreted to show ??? Left??Ventricle: The left ventricular cavity was severely dilated in size. Left ventricular systolic function was severely decreased with an ejection fraction of 25-30%. Left ventricular wall thickness was normal. There was diffuse hypokinesis with regional abnormalities. There was akinesis of the apex. There was no left ventricular thrombus. ??? Left??Atrium: Left atrial cavity was mildly dilated. ??? Mitral??Valve: There was severe mitral regurgitation with a centrally directed jet. ??? Right??Ventricle: The right ventricular cavity was normal in size. Right ventricular systolic function was normal. Right ventricular wall thickness was normal. ? ? IVC/SVC: The inferior vena cava demonstrated a diameter of <=21 mm and collapses >50%. ??? Pericardium: A small pericardial effusion was identified anterior to the heart. There was rightatrial inversion. The pericardium was thickened. ?? EKG from today reviewed and interpreted to show sinus tachycardia w/ normal intervals, no ischemic EKG changs, no Q-waves; rate 116/', QRS 112 ms, QTc 422 (Fridericia) ASSESSMENT 1. ACC/AHA stage C heart failure with reduced ejection fraction (HCC-CMS) ([facility]) 2. Ischemic cardiomyopathy 3. S/P coronary artery stent placement 4. Prediabetes 5. Ischemic mitral regurgitation 6. Mixed hyperlipidemia Given acute onset of s/s, most likely newly declined LVEF due to ischemia. Given pericardial effusion and thickening, perimyocarditis remains a possibility, albeit no s/s of viral illness. Uncontrolled hypertension could be another cause of her CMP although she doesn't havea h/o HTN. Her MR is functional. Volume status optimized. Hypertensive and tachycardic. No angina or ischemic EKG changes. PLAN ?? Increase metoprolol to 50 mg BID Start l;osartan 25 mg daily ?? Continue current dose of furosemide ?? Continue ASA and statin; will hold off on Plavix load until anatomy defined ?? Cardiac catheterization w/in 1 week ?? Labs and CXR today Follow-up 3 weeks Gerry Hall MD, PhD Other Orders Placed This Visit Procedures ??? XR CHEST 2 VIEWS ??? Magnesium ??? NT Pro BNP ??? Complete Blood Count and Differential ??? Comprehensive Metabolic Panel (CMP) ??? Uric Acid ??? Amb Consult/Follow Up Cardiology ??? EKG 12 lead documented in this encounter Plan of Treatment Scheduled Orders Name Type Priority Associated Diagnoses Orde r Schedule EKG 12-LEAD ECG Routine ACC/AHA stage C heart failure with reduced ejection fraction (HCC-CMS) (HCC) Ordered: 02/15/2021 documented as of this encounter Results * XR CHEST 2 [...] Hall MD IMG DIAGNOSTIC IMAGI NG ORDERABLES * (ABNORMAL) URIC ACID (02/15/2021 15:37 EST) Uric Acid 10.5(H) 2.2 - 7.7 mg/dL 02/15/2021 17:20 EST [facility] Blood VENOUS BLOOD / Unknown Venipuncture / Unknown 02/15/2021 15:37 EST 02/15/2021 16:40 EST Gerry Hall MD CHEMISTRY & BLOOD GA S ORDERABLES [facility] [address] [place] [address] * (ABNORMAL) COMPREHENSIVE METABOLIC PANEL (CMP) (02/15/2021 15:37 [facility]) Sodium 141 136 - 145 mmol/L 02/15/2021 17:20 [facility] Potassium 4.2 3.5 - 5.0 mmol/L 02/15/2021 17:20 [facility] Chloride 101 96 - 110 mmol/L 02/15/2021 17:20 [facility] CO2 Total 27 22 - 32 mmol/L 02/15/2021 17:20 [facility] Glucose 104(H) 70 - 100 mg/dL 02/15/2021 17:20 [facility] BUN 21 10 - 26 mg/dL 02/15/2021 17:20 [facility] Creatinine 0.93 0.52 - 1.04 mg/dL 02/15/2021 17:20 [facility] eGFR 64 >60 mL/min/1.7 3m2 02/15/2021 17:20 [facility] Total Protein 6.7 6.3 - 8.2 g/dL 02/15/2021 17:20 [facility] Albumin 4.2 3.4 - 4.9 g/dL 02/15/2021 17:20 [facility] Alkaline Phosphatase 73 38 - 126 U/L 02/15/2021 17:20 [facility] AST 29 15 - 46 U/L 02/15/2021 17:20 [facility] ALT 37(H) <35 U/L 02/15/2021 17:20 [facility] Bilirubin, Total 0.7 <1.4 mg/dL 02/16/20 17:20 [facility] Calcium 9.2 8.5 - 10.5 mg/dL 02/15/2021 17:20 [facility] Albumin/Globulin Ratio 1.7 1.0 - 2.5 02/15/2021 17:20 [facility] Anion Gap 13 8 - 16 02/15/2021 17:20 [facility] Blood VENOUS BLOOD / Unknown Venipuncture / Unknown 02/15/2021 15:37 EST 02/15/2021 16:40 EST Gerry Hall MD CHEMISTRY & BLOOD GA S ORDERABLES [facility] [address] [place] [address] * (ABNORMAL) COMPLETE BLOOD COUNT AND DIFFERENTIAL (02/15/2021 15:37 EST) WBC 12.00 4.00 - 12.40 K/cmm 02/15/2021 16:38 [facility] RBC 4.78 3.86 - 5.04 M/cmm 02/15/2021 16:38 [facility] Hemoglobin 14.5 11.6 - 15.2 gm/dL 02/15/2021 16:38 [facility] HCT 43.6 34.9 - 44.4 % 02/15/2021 16:38 [facility] MCV 91 81 - 98 fl 02/15/2021 16:38 [facility] MCH 30.3 26.7 - 33.3 pg 02/15/2021 16:38 [facility] MCHC 33.3 32.1 - 35.9 gm/dL 02/15/2021 16:38 [facility] RDW-CV 13.9 <14.7 % 02/15/2021 16:38 [facility] RDW-SD 46.3 <50.4 fl 02/15/2021 16:38 [facility] PLT 323 141 - 377 K/cmm 02/15/2021 16:38 [facility] MPV 9.2(L) 9.5 - 12.7 fl 02/15/2021 16:38 [facility] % Neutrophils 60.0 % 02/15/2021 16:38 [facility] % Lymphocytes 28.8 % 02/15/2021 16:38 [facility] % Monocytes 8.8 % 02/15/2021 16:38 [facility] % Eosinophils 1.2 % 02/15/2021 16:38 [facility] % Basophils 0.8 % 02/15/2021 16:38 [facility] % Immature Grans 0.4 % 02/16/20 16:38 [facility] Absolute Neutrophils 7.22 2.20 - 8.85 K/cmm 02/15/2021 16:38 [facility] Absolute Lymphocytes 3.45(H) 1.09 - 3.30 K/cmm 02/15/2021 16:38 [facility] Absolute Monocytes 1.05(H) 0.10 - 0.80 K/cmm 02/15/2021 16:38 [facility] Absolute Eosinophils 0.14 0.03 - 0.61 K/cmm 02/15/2021 16:38 [facility] ABS Basophils 0.09 0.01 - 0.11 K/cmm 02/15/2021 16:38 [facility] Absolute Immature Grans 0.05 0.00 - 0.06 K/cmm 02/15/2021 16:38 [facility] Type of Differential: Auto 02/15/2021 16:38 [facility] Blood VENOUS BLOOD / Unknown Venipuncture / Unknown 02/15/2021 15:37 EST 02/15/2021 16:34 EST Gerry Hall MD PACKAGES & DNA PROBE ORDERABLES Performing Organization Address City/State/[facility] Co de Phone Number [facility] [address] [place] [address] * (ABNORMAL) NT PRO BNP (02/15/2021 15:37 EST) NT-pro BNP 3,820(H) <125 pg/mL 02/15/2021 17:30 [facility] Comment:The results of this assay can be falsely lowered due to consumption of Biotin. Blood VENOUS BLOOD / Unknown Venipuncture / Unknown 02/15/2021 15:37 EST 02/15/2021 16:40 EST Gerry Hall MD CHEMISTRY & BLOOD GA S ORDERABLES [facility] [address] [place] [address] * (ABNORMAL) MAGNESIUM (02/15/2021 15:37 EST) Magnesium 1.6(L) 1.7 - 2.8 mg/dL 02/15/2021 17:20 EST [facility] Blood VENOUS BLOOD / Unknown Venipuncture / Unknown 02/15/2021 15:37 EST 02/15/2021 16:40 EST Gerry Hall MD CHEMISTRY & BLOOD GA S ORDERABLES Performing Organization Address City/[facility]/ZIP Co de Phone Number [facility] [address] [place] [address] documented in this encounter Visit Diagnoses Diagnosis ACC/AHA stage C heart failure with reduced ejection fraction (HCC-CMS)- Primary Ischemic cardiomyopathy Other specified forms of chronic ischemic heart disease S/P coronary artery stent placement Postsurgical percutaneous transluminal coronary angioplasty status Prediabetes Other abnormal glucose Ischemic mitral regurgitation Mitral valve disorders Mixed hyperlipidemia ACC/AHA stage C heart failure with reduced ejection fraction (HCC-CMS) SOB (shortness of breath) Shortness of breath documented in this encounter Discontinued Medications Medication Sig Discontinue Reason Start Date End Da te metoprolol SUCCinate (TOPROL-XL) 50 mg tablet Take 50 mg by mouth 2 times daily. Reorder 02/15/2021 02/15/2021 documented as of this encounter Historical Medications * This list may reflect changes made after this encounter. Medication Sig Dispensed Refills Start Date End Date atorvastatin (LIPITOR) 80 mg tablet Take 80 mg by mouth daily. levothyroxine sodium (LEVOTHYROXINE ORAL) Take by mouth. Unsure dosage acetaminophen (TYLENOL) 325 mg tablet 1 tablet orally as needed aspirin 81 mg EC tablet 1 tab(s) orally once a day cholecalciferol (VITAMIN D3) 1,250 mcg (50,000 unit) capsule 1 cap(s) orally month furosemide (LASIX) 80 mg tablet 1 tab am,1/2 tab pm orally twice daily Coenzyme Q10 100 mg capsule 1 cap(s) orally once a day metoprolol SUCCinate (TOPROL-XL) 50 mg tablet Take 50 mg by mouth 2 times daily. 02/15/2021 02/15/2021 added in this encounter Care Teams Building Pressure Washer Relationship Specialty Start Date End Date Angela Cotto MD [address] [place] [phone] PCP - General Family Medicine - Primary Care 10/26/20 documented as of this encounter
--- OUTSIDE RECORDS SUMMARY | 2023-10-16 01:29 | XMS_ITS | Encounter Summary ---
Author Organization [facility] Address [address] [place] [address] Care Team Providers Care Processing Inspector Name Role Phone Ethel Cunningham MD Primary Care Provider [phone] Encounter Details Date Type Department Care Team (Late st Contact Info) Description 05/28/2018 Historical Results Only [facility] Radiology Results [address] [place] [address] Angela Cotto MD [address] [place] [phone] Social History Tobacco Use Types Packs/Day [...] Diagnosis Comments MA BREAST SCREENING GEETHA BILATERAL 05/28/2018 10:15 EST documented in this encounter Results * MA BREAST SCREENING GEETHA BILATERAL (05/28/2018 10:15 EST) Anatomical Region Laterality Modality Breast Bilateral Other 05/28/2018 10:1 5 EST Narrative 05/28/2018 10:15 EST ? EXAM: MAMMOGRAM/MAMMO BILATERAL SCREEN W ??EX. D/ (1037) ? CLINICAL INFORMATION: ? Z12.31 SCREENING ? INDICATION: Z12.31 SCREENING SCREENING FOR LUNG CANCER, SCREENING ? 2008,NEW BASE ? TECHNIQUE: ??Full field digital whole breast 2D (C-view) and 3D CC and ? MLO views of both breasts were obtained. CAD technology was utilized. ? FINDINGS: ??The fibroglandular patterns of the breasts are normal. ? There has been no change when compared to previous mammograms and ? there is no mammographic evidence of cancer. There are scattered ? areas of fibroglandular density. ? FINAL ASSESSMENT BILATERAL BREAST: ??BI-RADS Category 1 - Negative. ? Routine mammographic follow-up is recommended. ? These results will be communicated to your patient via a lay letter ? from Radiology. ??If any additional imaging is needed we will contact ? your patient directly. ? REPORT SIGNED IN OTHER VENDOR SYSTEM 05/28/2018 ?Reported By: Trevon Lemos MD ? CC: ? Transcribed Date/Time: 05/28/2018 (1015) ? Battery Charger Conveyor Line: ? Printed Date/Time: 09/14/2018 (2317) ? PAGE 1 ? Signed Report ? Procedure Note Trevon Lemos MD, MD - 01/29/2019 EXAM: MAMMOGRAM/MAMMO BILATERAL SCREEN W EX. D/ (1037) CLINICAL INFORMATION: Z12.31 SCREENING INDICATION: Z12.31 SCREENING SCREENING FOR LUNG CANCER, SCREENING 2007,NEW BASE TECHNIQUE: Full field digital whole breast 2D (C-view) and 3D CCand MLO views of both breasts were obtained. CAD technology wasutilized. FINDINGS: The fibroglandular patterns of the breasts are normal. There has been no change when compared to previous mammograms and there is no mammographic evidence of cancer. There are scattered areas of fibroglandular density. FINAL ASSESSMENT BILATERAL BREAST: BI-RADS Category 1 - Negative. Routine mammographic follow-up is recommended. These results will be communicated to your patient via a lay letter from Radiology. If any additional imaging is needed we willcontact your patient directly. REPORT SIGNED IN OTHER VENDOR SYSTEM 05/28/2018 Reported By: Trevon Lemos MD CC: Transcribed Date/Time: 05/28/2018 (1015) Battery Charger Conveyor Line: Printed Date/Time: 09/14/2018 (4669) PAGE 1 Signed Report Angela Cotto MD IMG MAMMOGRAPHY [facility] documented in this encounter Visit Diagnoses Not on filedocumented in this encounter Care Teams Processing Inspector Relationship Specialty Start Date End Date Ethel Cunningham MD [address] [place] [phone] PCP - General 07/21/12 10/25/20 documented as of this encounter
--- OUTSIDE RECORDS SUMMARY | 2023-10-16 01:29 | XMS_ITS | Encounter Summary ---
Author Organization [facility] Address [address] [place] [address] Care Team Providers Care Government Affairs Manager Name Role Phone Ethel Cunningham MD Primary Care Provider [phone] Encounter Details Date Type Department Care Team (Late st Contact Info) Description 06/24/2018 Historical Results Only [facility] - [address] [address] Angela Cotto MD [address] [place] [phone] Social History Tobacco Use Types Packs/Day [...] Date/Time Associated Diagnosis Comments POCT CHOLESTEROL LDL ([facility] Routine 06/24/2018 13:24 EDT documented in this encounter Results * (ABNORMAL) POCT CHOLESTEROL LDL ([facility] (06/24/2018 13:24 EDT) LDL CHOLESTEROL - [facility] 121(H) 60 - 100 MG/DL 06/24/2018 13:[address] [facility] 06/24/2018 13:2 4 EDT 06/24/2018 13:24 EDT Angela Cotto MD POINT OF CARE TEST O RDERABLES [facility] documented in this encounter Visit Diagnoses Not on filedocumented in this encounter Care Teams Government Affairs Manager Relationship Specialty Start Date End Date Ethel Cunningham MD [address] [place] [phone] PCP - General 07/21/12 10/25/20 documented as of this encounter
--- OUTSIDE RECORDS SUMMARY | 2023-10-16 01:29 | XMS_ITS | Encounter Summary ---
Author Organization [facility] Address [address] [place] [address] Care Team Providers Care Product Development Coordinator Name Role Phone Ethel Cunningham MD Primary Care Provider [phone] Encounter Details Date Type Department Care Team (Late st Contact Info) Description 06/24/2018 Historical Results Only [facility] - [address] [address] Angela Cotto MD [address] [place] [phone] Social History Tobacco Use Types Packs/Day [...] Associated Diagnosis Comments COMPREHENSIVE METABOLIC POC - [facility] Routine 06/24/2018 13:24 EDT documented in this encounter Results * (ABNORMAL) COMPREHENSIVE METABOLIC POC - [facility] (06/24/2018 13:24 EDT) Albumin % 4.4 3.50 - 5.00 G/DL 06/24/2018 13:27 EDT [facility] ALKALINE PHOSPHATASE - [facility] 78 38.00 - 126.00 U/L 06/24/2018 13:27 EDT [facility] BILIRUBIN TOTAL 0.6 0.20 - 1.30 MG/DL 06/24/2018 13:27 [facility] BUN - [facility] 13 7.00 - 20.00 MG/DL 06/24/2018 13:27 [facility] CALCIUM - [facility] 9.6 8.50 - 10.50 MG/DL 06/24/2018 13:27 [facility] Chloride 102 98.00 - 107.00 MMOL/L 06/24/2018 13:27 [facility] CO2 Total 27 22.00 - 30.00 MMOL/L 06/24/2018 13:27 [facility] CREATININE 0.7 0.70 - 1.50 MG/DL 06/24/2018 13:27 [facility] Anion Gap 13 7 - 17 MMOL/L 06/24/2018 13:27 [facility] GLUCOSE - [facility] 105(H) 70.00 - 100.00 MG/DL 06/24/2018 13:27 [facility] Potassium 4.4 3.50 - 5.10 MMOL/L 06/24/2018 13:27 [facility] Sodium 142 137.00 - 145.00 MMOL/L 06/24/2018 13:27 [facility] TOTAL PROTEIN - [facility] 7.3 6.30 - 8.20 G/DL 06/24/2018 13:27 [facility] SGOT/AST - [facility] 19 15.00 - 46.00 U/L 06/24/2018 13:27 [facility] SGPT/ALT - [facility] 25 13.00 - 69.00 U/L 06/24/2018 13:27 [facility] 06/24/2018 13:2 4 EDT 06/24/2018 13:24 EDT Angela Cotto MD CHEMISTRY & BLOOD GA S ORDERABLES [facility] documented in this encounter Visit Diagnoses Not on filedocumented in this encounter Care Teams Product Development Coordinator Relationship Specialty Start Date End Date Ethel Cunningham MD [address] [place] [phone] PCP - General 07/21/12 10/25/20 documented as of this encounter
--- OUTSIDE RECORDS SUMMARY | 2023-10-16 01:29 | XMS_ITS | Encounter Summary ---
Author Organization [facility] Address [address] [place] [address] Care Team Providers Care Printing Grey Cloth Tender Name Role Phone Ethel Cunningham MD Primary Care Provider [phone] Encounter Details Date Type Department Care Team (Late st Contact Info) Description 10/28/2018 Historical Results Only [facility] - [facility] Lab - [address] [address] Angela Cotto MD [address] [place] [phone] Social History Tobacco Use Types Packs/Day Years Used Date Smoking Tobacco: Never Assessed Sex and Gender Information Value Date Recorded Sex Assigned at Not on file Gender Identity Not on file Sexual Orientation Not on file documented as of this encounter Plan of Treatment Not on file documented as of this encounter Procedures Procedure Name Priority Date/Time Associated Diagnosis Comments MAGNESIUM POC - [facility] Routine 10/28/2018 11:35 EDT documented in this encounter Results * MAGNESIUM POC - CV (10/28/2018 11:35 EDT) Magnesium 2.00 1.60 - 2.30 MG/DL 10/28/2018 11:37 EDT [facility] 10/28/2018 11:3 5 EDT 10/28/2018 11:35 EDT Angela Cotto MD CHEMISTRY & BLOOD GA S ORDERABLES [facility] documented in this encounter Visit Diagnoses Not on filedocumented in this encounter Care Teams Printing Grey Cloth Tender Relationship Specialty Start Date End Date Ethel Cunningham MD [address] [place] [address] PCP - General 07/21/12 10/25/20 documented as of this encounter
--- OUTSIDE RECORDS SUMMARY | 2023-10-16 01:29 | XMS_ITS | Encounter Summary ---
Author Organization [facility] Address [address] [place] [address] Care Team Providers Care Province Archivist Name Role Phone Ethel Cunningham MD Primary Care Provider [phone] Encounter Details Date Type Department Care Team (Late st Contact Info) Description 11/26/2017 Historical Results Only [facility] - [facility] Lab - [address] [address] Rhonda Doshi, PA [address] [place] [phone] Social History Tobacco Use Types [...] Diagnosis Comments GLYCOHEMOGLOBIN POC - CV Routine 11/26/2017 12:10 EDT documented in this encounter Results * (ABNORMAL) GLYCOHEMOGLOBIN POC - [facility] (11/26/2017 12:10 EDT) Hemoglobin A1c 6.1(H) 4.0 - 6.0 % 11/26/2017 12:11 EDT [facility] AVG CALCULATED GLUCOSE - [facility] 123(H) 60 - 115 MG/DL 11/26/2017 12:11 EDT [facility] 11/26/2017 12:1 0 EDT 11/26/2017 12:10 EDT Rhonda BENTLEY CHEMISTRY & BLOOD GA S ORDERABLES [facility] documented in this encounter Visit Diagnoses Not on filedocumented in this encounter Care Teams Province Archivist Relationship Specialty Start Date End Date Ethel Cunningham MD [address] [place] [address] PCP - General 07/21/12 10/25/20 documented as of this encounter
--- OUTSIDE RECORDS SUMMARY | 2023-10-16 01:29 | XMS_ITS | Encounter Summary ---
Author Organization [facility] Address [address] [place] [address] Care Team Providers Care Cloud Security Architect Name Role Phone Ethel Cunningham MD Primary Care Provider [phone] Encounter Details Date Type Department Care Team (Late st Contact Info) Description 10/28/2018 Historical Results Only [facility] Lab - [address] [address] Angela Cotto MD [address] [place] [phone] Social History Tobacco Use Types Packs/Day Years Used Date Smoking Tobacco: Never Assessed Sex and Gender Information Value Date Recorded Sex Assigned at Not on file Gender Identity Not on file Sexual Orientation Not on file documented as of this encounter Plan of Treatment Not on file documented as of this encounter Procedures Procedure Name Priority Date/Time Associated Diagnosis Comments VITAMIN D 25 POC - [facility] Routine 10/28/2018 11:35 EDT URIC ACID Routine 10/28/2018 6:30 EDT documented in this encounter Results * VITAMIN D 25 POC - [facility] (10/28/2018 11:35 EDT) VIT D, 25 HYDROXY - [facility] 41 30 - 100 NG/ML 10/28/2018 11:37 EDT [facility] 10/28/2018 11:3 5 EDT 10/28/2018 11:35 EDT Angela Cotto MD CHEMISTRY & BLOOD GA S ORDERABLES [facility] * (ABNORMAL) URIC ACID (10/28/2018 6:30 EDT) URIC ACID - [facility] 8.4(H) 2.2 - 7.7 mg/dL 10/28/2018 13:47 EDT [facility] 10/28/2018 6:30 EDT 10/28/2018 13:24 EDT Narrative [facility] - 10/28/2018 13:47 EDT Does PT Have a Latex Allergy? NO Angela Cotto MD CHEMISTRY & BLOOD GA S ORDERABLES Performing Organization Address City/[facility]/ZIP Co de Phone Number [facility] documented in this encounter Visit Diagnoses Not on filedocumented in this encounter Care Teams Cloud Security Architect Relationship Specialty Start Date End Date Ethel Cunningham MD [address] [place] [address] PCP - General 07/21/12 10/25/20 documented as of this encounter
--- OUTSIDE RECORDS SUMMARY | 2023-10-16 01:29 | XMS_ITS | Encounter Summary ---
Author Organization [facility] Address [address] [place] [address] Care Team Providers Care Byproducts Pump Operator Name Role Phone Ethel Cunningham MD Primary Care Provider Encounter Details Date Type Department Care Team (Late st Contact Info) Description 03/03/2019 Results Only [facility] - [facility] - [address] [address] Angela Cotto MD [address] [place] [phone] Social History Tobacco Use Types Packs/Day Years Used Date Smoking Tobacco: Never Assessed Sex and Gender Information Value Date Recorded Sex Assigned at Not on file Gender Identity Not on file Sexual Orientation Not on file documented as of this encounter Plan of Treatment Not on file documented as of this encounter Procedures Procedure Name Priority Date/Time Associated Diagnosis Comments THYROID STIM HORMONE POC - [facility] Routine 03/03/2019 13:18 EST URIC ACID Routine 03/03/2019 10:20 EST documented in this encounter Results * THYROID STIM HORMONE POC - [facility] (03/03/2019 13:18 EST) THYROID STIM HORMONE - CV 2.80 0.45 - 5.33 UIU/ML 03/03/2019 13:[address] [facility] 03/03/2019 13:1 8 EST 03/03/2019 13:[address] [facility] - 03/03/2019 13:19 EST CHRONIC RENAL IMPAIRMENT IS DEFINED GFR <60 MULTIPLY RESULT BY 1.210 FOR PATIENTS EGFR CALCULATED USING THE IDMS-TRACEABLE MDRD STUDY Angela Cotto MD CHEMISTRY & BLOOD GA S ORDERABLES [facility] * (ABNORMAL) URIC ACID (03/03/2019 10:20 EST) URIC ACID - [facility] 8.4(H) 2.2 - 7.7 mg/dL 03/03/2019 13:[address] [facility] 03/03/2019 10:2 0 EST 03/03/2019 12:[address] [facility] - 03/03/2019 13:34 EST Does PT Have a Latex Allergy? NO Angela Cotto MD CHEMISTRY & BLOOD GA S ORDERABLES [facility] documented in this encounter Visit Diagnoses Not on filedocumented in this encounter Care Teams Byproducts Pump Operator Relationship Specialty Start Date End Date Ethel Cunningham MD [address] [place] [address] PCP - General 07/21/12 10/25/20 documented as of this encounter
--- OUTSIDE RECORDS SUMMARY | 2023-10-16 01:29 | XMS_ITS | Encounter Summary ---
Author Organization [facility] Address [address] [place] [address] Care Team Providers Care Sales Product Manager Name Role Phone Ethel Cunningham MD Primary Care Provider [phone] Encounter Details Date Type Department Care Team (Late st Contact Info) Description 10/28/2018 Historical Results Only [facility] Lab - [address] [address] Angela Cotto MD [address] [place] [phone] Social History Tobacco Use Types Packs/Day [...] Date/Time Associated Diagnosis Comments POCT CHOLESTEROL LDL ([facility]) Routine 10/28/2018 11:35 EDT documented in this encounter Results * POCT CHOLESTEROL LDL ([facility]) (10/28/2018 11:35 EDT) LDL CHOLESTEROL - [facility] 66 60 - 100 MG/DL 10/28/2018 11:37 EDT [facility] 10/28/2018 11:3 5 EDT 10/28/2018 11:35 EDT Angela Cotto MD POINT OF CARE TEST O RDERABLES [facility] documented in this encounter Visit Diagnoses Not on filedocumented in this encounter Care Teams Sales Product Manager Relationship Specialty Start Date End Date Ethel Cunningham MD [address] [place] [address] PCP - General 07/21/12 10/25/20 documented as of this encounter
--- OUTSIDE RECORDS SUMMARY | 2023-10-16 01:29 | XMS_ITS | Encounter Summary ---
Author Organization [facility] Address [address] [place] [address] Care Team Providers Care Truck Rental Manager Name Role Phone Ethel Cunningham MD Primary Care Provider [phone] Encounter Details Date Type Department Care Team (Late st Contact Info) Description 07/22/2019 Results Only [facility] - [facility] Lab - [address] [address] Angela Cotto MD [address] [place] [phone] Social History Tobacco Use Types Packs/Day [...] Diagnosis Comments LIPID PANEL POC - [facility] Routine 07/22/2019 14:12 EDT documented in this encounter Results * (ABNORMAL) LIPID PANEL POC - [facility] (07/22/2019 14:12 EDT) Triglyceride 238(H) 0.00 - 150.00 MG/DL 07/22/2019 14:13 EDT [facility] Cholesterol 109 0.00 - 200.00 MG/DL 07/22/2019 14:13 EDT [facility] HDL 37(L) 40.00 - 60.00 MG/DL 07/22/2019 14:13 EDT [facility] 07/22/2019 14:1 2 EDT 07/22/2019 14:12 EDT Narrative [facility] - 07/22/2019 14:13 EDT CHRONIC RENAL IMPAIRMENT IS DEFINED GFR <60 MULTIPLY RESULT BY 1.210 FOR PATIENTS EGFR CALCULATED USING THE IDMS-TRACEABLE MDRD STUDY Angela Cotto MD CHEMISTRY & BLOOD GA S ORDERABLES [facility] documented in this encounter Visit Diagnoses Not on filedocumented in this encounter Care Teams Truck Rental Manager Relationship Specialty Start Date End Date Ethel Cunningham MD [address] [place] [address] PCP - General 07/21/12 10/25/20 documented as of this encounter
--- OUTSIDE RECORDS SUMMARY | 2023-10-16 01:29 | XMS_ITS | Encounter Summary ---
Author Organization [facility] Address [address] [place] [address] Care Team Providers Care Prototype Technician Name Role Phone Ethel Cunningham MD Primary Care Provider [phone] Encounter Details Date Type Department Care Team (Late st Contact Info) Description 07/22/2019 Results Only [facility] - [facility] Lab - [address] [address] Angela Cotto MD [address] [place] [phone] Social History Tobacco Use Types Packs/Day [...] Associated Diagnosis Comments FREE T4 POC - [facility] Routine 07/22/2019 14 :12 EDT documented in this encounter Results * FREE T4 POC - [facility] (07/22/2019 14:12 EDT) FREE T4 - [facility] 0.81 0.58 - 1.64 NG/DL 07/22/2019 14:13 EDT [facility] Comment:THE RESULTS OF THIS ASSAY CAN BE FALSELY ELEVATED DUE TO THE CONSUMPTION OF BIOTIN 07/22/2019 14:1 2 EDT 07/22/2019 14:12 EDT Narrative [facility] - 07/22/2019 14:13 EDT CHRONIC RENAL IMPAIRMENT IS DEFINED GFR <60 MULTIPLY RESULT BY 1.210 FOR PATIENTS EGFR CALCULATED USING THE IDMS-TRACEABLE MDRD STUDY Angela Cotto MD CHEMISTRY & BLOOD GA S ORDERABLES [facility] documented in this encounter Visit Diagnoses Not on filedocumented in this encounter Care Teams Prototype Technician Relationship Specialty Start Date End Date Ethel Cunningham MD [address] [place] [phone] PCP - General 07/21/12 10/25/20 documented as of this encounter
--- OUTSIDE RECORDS SUMMARY | 2023-10-16 01:29 | XMS_ITS | Encounter Summary ---
Author Organization [facility] Address [address] [place] [address] Care Team Providers Care Agricultural Research Engineer Name Role Phone Ethel Cunningham MD Primary Care Provider [phone] Encounter Details Date Type Department Care Team (Late st Contact Info) Description 03/03/2019 Results Only [facility] - [facility] Lab - [address] [address] Angela Cotto MD [address] [place] [phone] Social History Tobacco Use Types Packs/Day [...] Date/Time Associated Diagnosis Comments MAGNESIUM POC - [facility] Routine 03/03/2019 13:18 EST documented in this encounter Results * MAGNESIUM POC - CV (03/03/2019 13:18 EST) Magnesium 1.90 1.60 - 2.30 MG/DL 03/03/2019 13:19 EST [facility] 03/03/2019 13:1 8 EST 03/03/2019 13:18 EST Narrative [facility] - 03/03/2019 13:19 EST CHRONIC RENAL IMPAIRMENT IS DEFINED GFR <60 MULTIPLY RESULT BY 1.210 FOR PATIENTS EGFR CALCULATED USING THE IDMS-TRACEABLE MDRD STUDY Angela Cotto MD CHEMISTRY & BLOOD GA S ORDERABLES [facility] documented in this encounter Visit Diagnoses Not on filedocumented in this encounter Care Teams Agricultural Research Engineer Relationship Specialty Start Date End Date Ethel Cunningham MD [address] [place] [address] PCP - General 07/21/12 10/25/20 documented as of this encounter
--- OUTSIDE RECORDS SUMMARY | 2023-10-16 01:29 | XMS_ITS | Encounter Summary ---
Author Organization [facility] Address [address] [place] [address] Care Team Providers Care Legal Recruiter Name Role Phone Ethel Cunningham MD Primary Care Provider [phone] Encounter Details Date Type Department Care Team (Late st Contact Info) Description 06/24/2018 Historical Results Only [facility] - [facility] - [address] [address] Angela Cotto MD [address] [place] [phone] Social History Tobacco Use Types Packs/Day [...] Date/Time Associated Diagnosis Comments GLYCOHEMOGLOBIN POC - [facility] Routine 06/24/2018 13:24 EDT documented in this encounter Results * (ABNORMAL) GLYCOHEMOGLOBIN POC - [facility] (06/24/2018 13:24 EDT) Hemoglobin A1c 6.0 4.0 - 6.0 % 06/24/2018 13:27 EDT [facility] AVG CALCULATED GLUCOSE - [facility] 120(H) 60 - 115 MG/DL 06/24/2018 13:27 EDT [facility] 06/24/2018 13:2 4 EDT 06/24/2018 13:24 EDT Angela Cotto MD CHEMISTRY & BLOOD GA S ORDERABLES [facility] documented in this encounter Visit Diagnoses Not on filedocumented in this encounter Care Teams Legal Recruiter Relationship Specialty Start Date End Date Ethel Cunningham MD [address] [place] [address] PCP - General 07/21/12 10/25/20 documented as of this encounter
--- OUTSIDE RECORDS SUMMARY | 2023-10-16 01:29 | XMS_ITS | Encounter Summary ---
Author Organization [facility] Address [address] [place] [address] Care Team Providers Care Blending Kettle Tender Name Role Phone Ethel Cunningham MD Primary Care Provider [phone] Encounter Details Date Type Department Care Team (Late st Contact Info) Description 07/22/2019 Results Only [facility] - [facility] Lab - [address] [address] Angela Cotto MD [address] [place] [phone] Social History Tobacco Use Types Packs/Day [...] Diagnosis Comments THYROID STIM HORMONE POC - [facility] Routine 07/22/2019 14:12 EDT documented in this encounter Results * THYROID STIM HORMONE POC - [facility] (07/22/2019 14:12 EDT) THYROID STIM HORMONE - [facility] 1.97 0.45 - 5.33 UIU/ML 07/22/2019 14:13 EDT [facility] [...] on filedocumented in this encounter Care Teams Blending Kettle Tender Relationship Specialty Start Date End Date Ethel Cunningham MD [address] [place] [address] PCP - General 07/21/12 10/25/20 documented as of this encounter
--- OUTSIDE RECORDS SUMMARY | 2023-10-16 01:29 | XMS_ITS | Encounter Summary ---
Author Organization [facility] Address [address] [place] [address] Care Team Providers Care Deck Engine Operator Name Role Phone Angela Cotto MD Primary Care Provider [phone] Encounter Details Date Type Department Care Team (Late st Contact Info) Description 01/06/2021 Results Only [facility] - [facility] - Main [place] [address] [place], [place] [address] Angela Cotto MD [address] [place] [phone] Social History Tobacco Use Types Packs/Day [...] Comments LIPID PANEL POC - [facility] Routine 12:43 EDT COMPREHENSIVE METABOLIC POC - [facility] Routine 01/06/2021 12:43 EDT GLYCOHEMOGLOBIN POC - [facility] Routine 01/06/2021 12:43 EDT FREE T4 POC - [facility] Routine 01/06/2021 12 :43 EDT THYROID STIM HORMONE POC - [facility] Routine 01/06/2021 12:43 EDT MAGNESIUM POC - [facility] Routine 01/06/2021 12:43 EDT POCT CHOLESTEROL LDL ([facility]) Routine 01/06/2021 12:43 EDT documented in this encounter Results * THYROID STIM HORMONE POC - [facility] (01/06/2021 12:43 EDT) THYROID STIM HORMONE - CV 0.96 0.45 - 5.33 UIU/ML 01/06/2021 12:45 EDT [facility] 01/06/2021 12:4 3 EDT 01/06/2021 12:43 EDT Narrative [facility] - 01/06/2021 12:45 EDT CHRONIC RENAL IMPAIRMENT IS DEFINED GFR <60 MULTIPLY RESULT BY 1.210 FOR PATIENTS EGFR CALCULATED USING THE IDMS-TRACEABLE MDRD STUDY Angela Cotto MD CHEMISTRY & BLOOD GA S ORDERABLES Performing Organization Address [facility] Co de Phone Number [facility] [address] [place] [address] * MAGNESIUM POC - CV (01/06/2021 12:43 EDT) Pathologist [facility] Magnesium 1.60 1.60 - 2.30 MG/DL 01/06/2021 12:45 EDT [facility] 01/06/2021 12:4 3 EDT 01/06/2021 12:43 EDT Narrative [facility] - 01/06/2021 12:45 EDT CHRONIC RENAL IMPAIRMENT IS DEFINED GFR <60 MULTIPLY RESULT BY 1.210 FOR PATIENTS EGFR CALCULATED USING THE IDMS-TRACEABLE MDRD STUDY Angela Cotto MD CHEMISTRY & BLOOD GA S ORDERABLES Performing Organization Address City/[facility]/ZIP Co de Phone Number [facility] [address] [place] [address] * (ABNORMAL) LIPID PANEL POC - [facility] (01/06/2021 12:43 EDT) [facility] Triglyceride 247(H) 0.00 - 150.00 MG/DL 01/06/2021 12:45 EDT [facility] Cholesterol 97 0.00 - 200.00 MG/DL 01/06/2021 12:45 EDT [facility] HDL 33(L) 40.00 - 60.00 MG/DL 01/06/2021 12:45 EDT [facility] 01/06/2021 12:4 3 EDT 01/06/2021 12:43 EDT [facility] - 01/06/2021 12:45 EDT CHRONIC RENAL IMPAIRMENT IS DEFINED GFR <60 MULTIPLY RESULT BY 1.210 FOR PATIENTS EGFR CALCULATED USING THE IDMS-TRACEABLE MDRD STUDY Angela Cotto MD CHEMISTRY & BLOOD GA S ORDERABLES Performing Organization Address City/[facility]/ZIP Co de Phone Number [facility] [address] [place] [address] * (ABNORMAL) POCT CHOLESTEROL LDL ([facility]) (01/06/2021 12:43 EDT) [facility] LDL CHOLESTEROL - [facility] 15(L) 60 - 100 mg/dl 01/06/2021 12:45 EDT [facility] 01/06/2021 12:4 3 EDT 01/06/2021 12:43 EDT [facility] - 01/06/2021 12:45 EDT CHRONIC RENAL IMPAIRMENT IS DEFINED GFR <60 MULTIPLY RESULT BY 1.210 FOR PATIENTS EGFR CALCULATED USING THE IDMS-TRACEABLE MDRD STUDY Angela Cotto MD POINT OF CARE TEST O RDERABLES [facility] [address] [place] [address] * (ABNORMAL) GLYCOHEMOGLOBIN POC - [facility] (01/06/2021 12:43 EDT) [facility] Hemoglobin A1c 6.0 4.0 - 6.0 % 01/06/2021 12:45 EDT [facility] AVG CALCULATED GLUCOSE - [facility] 120(H) 60 - 115 MG/DL 01/06/2021 12:45 EDT [facility] 01/06/2021 12:4 3 EDT 01/06/2021 12:43 EDT [facility] - 01/06/2021 12:45 EDT CHRONIC RENAL IMPAIRMENT IS DEFINED GFR <60 MULTIPLY RESULT BY 1.210 FOR PATIENTS EGFR CALCULATED USING THE IDMS-TRACEABLE MDRD STUDY Angela Cotto MD CHEMISTRY & BLOOD GA S ORDERABLES Performing Organization Address [facility] Co de [facility] Number [facility] [address] [place] [address] * FREE T4 POC - [facility] (01/06/2021 12:43 EDT) [facility] FREE T4 - CV 0.75 0.58 - 1.64 NG/DL 01/06/2021 12:45 EDT [facility] Comment:THE RESULTS OF THIS ASSAY CAN BE FALSELY ELEVATED DUE TO THE CONSUMPTION OF BIOTIN 01/06/2021 12:4 3 EDT 01/06/2021 12:43 EDT [facility] - 01/06/2021 12:45 EDT CHRONIC RENAL IMPAIRMENT IS DEFINED GFR <60 MULTIPLY RESULT BY 1.210 FOR PATIENTS EGFR CALCULATED USING THE IDMS-TRACEABLE MDRD STUDY Angela Cotto MD CHEMISTRY & BLOOD GA S ORDERABLES Performing Organization Address City/[facility]/ZIP Co de Phone Number [facility] [address] [place] [address] * (ABNORMAL) COMPREHENSIVE METABOLIC POC - [facility] (01/06/2021 12:43 EDT) [facility] Albumin % 4.5 3.50 - 5.00 G/DL 01/06/2021 12:45 EDT [facility] ALKALINE PHOSPHATASE - [facility] 88 38.00 - 126.00 U/L 01/06/2021 12:45 [facility] BILIRUBIN TOTAL 0.6 0.20 - 1.30 MG/DL 01/06/2021 12:45 [facility] BUN - [facility] 24(H) 7.00 - 20.00 MG/DL 01/06/2021 12:45 [facility] CALCIUM - [facility] 9.8 8.50 - 10.50 MG/DL 01/06/2021 12:45 [facility] Chloride 101 98.00 - 107.00 MMOL/L 01/06/2021 12:45 [facility] CO2 Total 31(H) 22.00 - 30.00 MMOL/L 01/06/2021 12:45 [facility] CREATININE 0.9 0.70 - 1.50 MG/DL 01/06/2021 12:45 [facility] Anion Gap 8 7 - 17 01/06/2021 12:45 [facility] GLUCOSE - [facility] 105(H) 70.00 - 100.00 MG/DL 01/06/2021 12:45 [facility] Potassium 4.3 3.50 - 5.10 MMOL/L 01/06/2021 12:45 [facility] Sodium 140 137.00 - 145.00 MMOL/L 01/06/2021 12:45 [facility] TOTAL PROTEIN - [facility] 6.8 6.30 - 8.20 G/DL 01/06/2021 12:45 [facility] SGOT/AST - [facility] 21 15.00 - 46.00 U/L 01/06/2021 12:45 [facility] SGPT/ALT - [facility] 17 0.00 - 35.00 U/L 01/06/2021 12:45 [facility] 01/06/2021 12:4 3 EDT 01/06/2021 12:43 [facility] - 01/06/2021 12:45 EDT CHRONIC RENAL IMPAIRMENT IS DEFINED GFR <60 MULTIPLY RESULT BY 1.210 FOR PATIENTS EGFR CALCULATED USING THE IDMS-TRACEABLE MDRD STUDY Angela Cotto MD CHEMISTRY & BLOOD GA S ORDERABLES [facility] [address] [place] [address] documented in this encounter Visit Diagnoses Not on filedocumented in this encounter Care Teams Deck Engine Operator Relationship Specialty Start Date End Date Angela Cotto MD [address] [place] [phone] PCP - General Family Medicine - Primary Care 10/26/20 documented as of this encounter
--- OUTSIDE RECORDS SUMMARY | 2023-10-16 01:29 | XMS_ITS | Encounter Summary ---
Author Organization [facility] Address [address] [place] [address] Care Team Providers Care Apprentice Plant Attendant Name Role Phone Ethel Cunningham MD Primary Care Provider [phone] Encounter Details Date Type Department Care Team (Late st Contact Info) Description 04/08/2018 Historical Results Only [facility] [place] [facility] [place] [address] [address] Rhonda Doshi, PA [address] [place] [address] Social History Tobacco Use Types [...] Diagnosis Comments GLYCOHEMOGLOBIN POC - CV Routine 04/08/2018 11:12 EST documented in this encounter Results * (ABNORMAL) GLYCOHEMOGLOBIN POC - CV (04/08/2018 11:12 EST) Hemoglobin A1c 5.9 4.0 - 6.0 % 04/08/2018 11:[address] [facility] AVG CALCULATED GLUCOSE - [facility] 116(H) 60 - 115 MG/DL 04/08/2018 11:[address] [facility] 04/08/2018 11:1 2 EST 04/08/2018 11:12 EST Rhonda BENTLEY CHEMISTRY & BLOOD GA S ORDERABLES [facility] documented in this encounter Visit Diagnoses Not on filedocumented in this encounter Care Teams Apprentice Plant Attendant Relationship Specialty Start Date End Date Ethel Cunningham MD [address] [place] [address] PCP - General 07/21/12 10/25/20 documented as of this encounter
--- OUTSIDE RECORDS SUMMARY | 2023-10-16 01:29 | XMS_ITS | Encounter Summary ---
Author Organization [facility] Address [address] [place] [address] Care Team Providers Care Dry House Tender Name Role Phone Ethel Cunningham MD Primary Care Provider [phone] Encounter Details Date Type Department Care Team (Late st Contact Info) Description 03/03/2019 Results Only [facility] - [address] [address] Angela Cotto MD [address] [place] [phone] Social History Tobacco Use Types Packs/Day Years Used Date Smoking Tobacco: Never Assessed Sex and Gender Information Value Date Recorded Sex Assigned at Not on file Gender Identity Not on file Sexual Orientation Not on file documented as of this encounter Plan of Treatment Not on file documented as of this encounter Procedures Procedure Name Priority Date/Time Associated Diagnosis Comments FREE T3 POC - CV Routine 03/03/2019 13 :18 EST documented in this encounter Results * (ABNORMAL) FREE T3 POC - CV (03/03/2019 13:18 EST) Pathologist [facility] T3,FREE - CV 4.01(A) 2.40 - 4.00 PG/ML 03/03/2019 13:19 EST [facility] Comment:THE RESULTS OF THIS ASSAY [...] on filedocumented in this encounter Care Teams Dry House Tender Relationship Specialty Start Date End Date Ethel Cunningham MD [address] [place] [address] PCP - General 07/21/12 10/25/20 documented as of this encounter
--- OUTSIDE RECORDS SUMMARY | 2023-10-16 01:29 | XMS_ITS | Encounter Summary ---
Author Organization [facility] Address [address] [place] [address] Care Team Providers Care Hand Button Splitter Name Role Phone Ethel Cunningham MD Primary Care Provider [phone] Encounter Details Date Type Department Care Team (Late st Contact Info) Description 03/03/2019 Results Only [facility] - [facility] - [address] [address] Angela Cotto MD [address] [place] [phone] Social History Tobacco Use Types Packs/Day [...] Diagnosis Comments GLYCOHEMOGLOBIN POC - CV Routine 03/03/2019 13:18 EST documented in this encounter Results * (ABNORMAL) GLYCOHEMOGLOBIN POC - CV (03/03/2019 13:18 EST) Hemoglobin A1c 5.9 4.0 - 6.0 % 03/03/2019 13:[address] [facility] AVG CALCULATED GLUCOSE - [facility] 116(H) 60 - 115 MG/DL 03/03/2019 13:[address] [facility] [...] on filedocumented in this encounter Care Teams Hand Button Splitter Relationship Specialty Start Date End Date Ethel Cunningham MD [address] [place] [address] PCP - General 07/21/12 10/25/20 documented as of this encounter
--- OUTSIDE RECORDS SUMMARY | 2023-10-16 01:29 | XMS_ITS | Encounter Summary ---
Author Organization [facility] Address [address] [place] [address] Care Team Providers Care Cloud Administrator Name Role Phone Ethel Cunningham MD Primary Care Provider [phone] Encounter Details Date Type Department Care Team (Late st Contact Info) Description 06/24/2018 Historical Results Only [facility] - [facility] - [address] [address] Angela Cotto MD [address] [place] [phone] Social History Tobacco Use Types Packs/Day [...] Date/Time Associated Diagnosis Comments MAGNESIUM POC - [facility] Routine 06/24/2018 13:24 EDT documented in this encounter Results * MAGNESIUM POC - CV (06/24/2018 13:24 EDT) Magnesium 1.90 1.60 - 2.30 MG/DL 06/24/2018 13:27 EDT [facility] 06/24/2018 13:2 4 EDT 06/24/2018 13:24 EDT Angela Cotto MD CHEMISTRY & BLOOD GA S ORDERABLES [facility] documented in this encounter Visit Diagnoses Not on filedocumented in this encounter Care Teams Cloud Administrator Relationship Specialty Start Date End Date Ethel Cunningham MD [address] [place] [address] PCP - General 07/21/12 10/25/20 documented as of this encounter
--- OUTSIDE RECORDS SUMMARY | 2023-10-16 01:29 | XMS_ITS | Encounter Summary ---
Author Organization [facility] Address [address] [place] [address] Care Team Providers Care Sporting Goods Sales Manager Name Role Phone Ethel Cunningham MD Primary Care Provider [phone] Encounter Details Date Type Department Care Team (Late st Contact Info) Description 07/22/2019 Results Only [facility] - [address] [address] Angela Cotto MD [address] [place] [phone] Social History Tobacco Use Types Packs/Day [...] Associated Diagnosis Comments COMPREHENSIVE METABOLIC POC - [facility] Routine 07/22/2019 14:12 EDT documented in this encounter Results * (ABNORMAL) COMPREHENSIVE METABOLIC POC - [facility] (07/22/2019 14:12 EDT) Albumin % 4.1 3.50 - 5.00 G/DL 07/22/2019 14:13 EDT [facility] ALKALINE PHOSPHATASE - [facility] 82 38.00 - 126.00 U/L 07/22/2019 14:13 EDT [facility] BILIRUBIN TOTAL 0.6 0.20 - 1.30 MG/DL 07/22/2019 14:13 [facility] BUN - [facility] 18 7.00 - 20.00 MG/DL 07/22/2019 14:13 [facility] CALCIUM - [facility] 9.1 8.50 - 10.50 MG/DL 07/22/2019 14:13 [facility] Chloride 101 98.00 - 107.00 MMOL/L 07/22/2019 14:13 [facility] CO2 Total 29 22.00 - 30.00 MMOL/L 07/22/2019 14:13 [facility] CREATININE 0.8 0.70 - 1.50 MG/DL 07/22/2019 14:13 [facility] Anion Gap 9 7 - 17 07/22/2019 14:13 [facility] GLUCOSE - [facility] 101(H) 70.00 - 100.00 MG/DL 07/22/2019 14:13 [facility] Potassium 4.5 3.50 - 5.10 MMOL/L 07/22/2019 14:13 [facility] Sodium 139 137.00 - 145.00 MMOL/L 07/22/2019 14:13 [facility] TOTAL PROTEIN - [facility] 7.1 6.30 - 8.20 G/DL 07/22/2019 14:13 [facility] SGOT/AST - [facility] 24 15.00 - 46.00 U/L 07/22/2019 14:13 [facility] SGPT/ALT - [facility] 26 0.00 - 35.00 U/L 07/22/2019 14:13 [facility] 07/22/2019 14:1 2 EDT 07/22/2019 14:12 [facility] - 07/22/2019 14:13 T CHRONIC RENAL IMPAIRMENT IS DEFINED GFR <60 MULTIPLY RESULT BY 1.210 FOR PATIENTS EGFR CALCULATED USING THE IDMS-TRACEABLE MDRD STUDY Angela Cotto MD CHEMISTRY & BLOOD GA S ORDERABLES [facility] documented in this encounter Visit Diagnoses Not on filedocumented in this encounter Care Teams Sporting Goods Sales Manager Relationship Specialty Start Date End Date Ethel Cunningham MD [address] [place] [address] PCP - General 07/21/12 10/25/20 documented as of this encounter
--- OUTSIDE RECORDS SUMMARY | 2023-10-16 01:30 | XMS_ITS | Encounter Summary ---
Author Organization [facility] Address [address] [place] [address] Care Team Providers Care Cotton Dispatcher Name Role Phone Ethel Cunningham MD Primary Care Provider [phone] Encounter Details Date Type Department Care Team (Late st Contact Info) Description 12/11/2016 Historical Results Only [facility] - [address] [address] Rhonda Doshi, PA [address] [place] [address] Social History Tobacco Use Types [...] Associated Diagnosis Comments FREE T3 POC - [facility] Routine 12/11/2016 14 :35 EDT documented in this encounter Results * FREE T3 POC - CV (12/11/2016 14:35 EDT) Pathologist [facility] T3,FREE - CV 3.01 2.40 - 4.00 PG/ML 12/11/2016 14:37 EDT [facility] 12/11/2016 14:3 5 EDT 12/11/2016 14:35 EDT Rhonda BENTLEY CHEMISTRY & BLOOD GA S ORDERABLES [facility] documented in this encounter Visit Diagnoses Not on filedocumented in this encounter Care Teams Cotton Dispatcher Relationship Specialty Start Date End Date Ethel Cunningham MD [address] [place] [address] PCP - General 07/21/12 10/25/20 documented as of this encounter
--- OUTSIDE RECORDS SUMMARY | 2023-10-16 01:30 | XMS_ITS | Encounter Summary ---
Author Organization [facility] Address [address] [place] [address] Care Team Providers Care Tube Bender Hand Name Role Phone Ethel Cunningham MD Primary Care Provider [phone] Encounter Details Date Type Department Care Team (Late st Contact Info) Description 06/25/2017 Historical Results Only [facility] - [facility] - [address] [address] Rhonda Doshi, PA [address] [place] [address] Social History Tobacco Use Types [...] Associated Diagnosis Comments LIPID PANEL POC - [facility] Routine 06/25/2017 12:25 EDT documented in this encounter Results * (ABNORMAL) LIPID PANEL POC - [facility] (06/25/2017 12:25 EDT) Triglyceride 301(H) 0.00 - 150.00 MG/DL 06/25/2017 12:26 EDT [facility] Cholesterol 179 0.00 - 200.00 MG/DL 06/25/2017 12:26 EDT [facility] HDL 46 40.00 - 60.00 MG/DL 06/25/2017 12:26 EDT [facility] 06/25/2017 12:2 5 EDT 06/25/2017 12:25 EDT Rhonda BENTLEY CHEMISTRY & BLOOD GA S ORDERABLES [facility] documented in this encounter Visit Diagnoses Not on filedocumented in this encounter Care Teams Tube Bender Hand Relationship Specialty Start Date End Date Ethel Cunningham MD [address] [place] [address] PCP - General 07/21/12 10/25/20 documented as of this encounter
--- OUTSIDE RECORDS SUMMARY | 2023-10-16 01:30 | XMS_ITS | Encounter Summary ---
Author Organization [facility] Address [address] [place] [address] Care Team Providers Care Mortgage Processor Name Role Phone Ethel Cunningham MD Primary Care Provider [phone] Encounter Details Date Type Department Care Team (Late st Contact Info) Description 12/11/2016 Historical Results Only [facility] - [facility] - [address] [address] Rhonda Doshi, PA [address] [place] [address] Social History Tobacco Use Types [...] Diagnosis Comments GLYCOHEMOGLOBIN POC - CV Routine 12/11/2016 14:35 EDT documented in this encounter Results * (ABNORMAL) GLYCOHEMOGLOBIN POC - [facility] (12/11/2016 14:35 EDT) Hemoglobin A1c 5.9 4.0 - 6.0 % 12/11/2016 14:37 EDT [facility] AVG CALCULATED GLUCOSE - [facility] 116(H) 60 - 115 MG/DL 12/11/2016 14:37 EDT [facility] 12/11/2016 14:3 5 EDT 12/11/2016 14:35 EDT Rhonda BENTLEY CHEMISTRY & BLOOD GA S ORDERABLES [facility] documented in this encounter Visit Diagnoses Not on filedocumented in this encounter Care Teams Mortgage Processor Relationship Specialty Start Date End Date Ethel Cunningham MD [address] [place] [address] PCP - General 07/21/12 10/25/20 documented as of this encounter
--- OUTSIDE RECORDS SUMMARY | 2023-10-16 01:30 | XMS_ITS | Encounter Summary ---
Author Organization [facility] Address [address] [place] [address] Care Team Providers Care Excel Vba Developer Name Role Phone Ethel Cunningham MD Primary Care Provider [phone] Encounter Details Date Type Department Care Team (Late st Contact Info) Description 06/25/2017 Historical Results Only [facility] - [address] [address] Rhonda Doshi, PA [address] [place] [address] Social History Tobacco Use Types [...] Date/Time Associated Diagnosis Comments POCT CHOLESTEROL LDL ([facility]) Routine 06/25/2017 12:25 EDT documented in this encounter Results * POCT CHOLESTEROL LDL ([facility]) (06/25/2017 12:25 EDT) LDL CHOLESTEROL - [facility] 73 60 - 100 MG/DL 06/25/2017 12:26 EDT [facility] 06/25/2017 12:2 5 EDT 06/25/2017 12:25 EDT Rhonda BENTLEY POINT OF CARE TEST O RDERABLES [facility] documented in this encounter Visit Diagnoses Not on filedocumented in this encounter Care Teams Excel Vba Developer Relationship Specialty Start Date End Date Ethel Cunningham MD [address] [place] [address] PCP - General 07/21/12 10/25/20 documented as of this encounter
--- OUTSIDE RECORDS SUMMARY | 2023-10-16 01:30 | XMS_ITS | Encounter Summary ---
Author Organization [facility] Address [address] [place] [address] Care Team Providers Care Hand Laster Name Role Phone Ethel Cunningham MD Primary Care Provider [phone] Encounter Details Date Type Department Care Team (Late st Contact Info) Description 11/03/2013 Historical Results Only [facility] - Main [address] [address] Ethel Cunningham MD [address] [place] [phone] Social History Tobacco Use Types Packs/Day Years Used Date Smoking Tobacco: Never Assessed Sex and Gender Information Value Date Recorded Sex Assigned at Not on file Gender Identity Not on file Sexual Orientation Not on file documented as of this encounter Plan of Treatment Not on file documented as of this encounter Procedures Procedure Name Priority Date/Time Associated Diagnosis Comments PAP TEST Routine 11/03/2013 documented in this encounter Results * PAP TEST (11/03/2013) 11/03/2013 11/03/2013 16: 19 EDT Narrative [facility] - 11/09/2013 16:06 EDT ----- ------- Name: STACY STOKES ?: 53 ?Age/Sex: 63/F ?Unit#: [id number] ? Loc: [email or web address] ? Status: REG REF ?? Reg Date: 11/03/13 ? Pt.Phone Number: ? ----- ------- Specimen: [id number] ?STATUS: SOUT ?Spec Date:11/03/13 ? Physician Copies: ?Ethel Cunningham MD ?? Tissues: ? VAG/CERV PAP ? CPT: 20019 ?? Units: ??1 ----- ------- ? CYTOLOGY DIAGNOSIS SPECIMEN ADEQUACY: ?Satisfactory for evaluation. Transformation zone component present. GENERAL CATEGORIZATION: ?Negative for Intraepithelial Lesion or Malignancy DESCRIPTIVE DIAGNOSIS: ? Negative for Intraepithelial Lesion or Malignancy. ----- ------- ?HPV DNA RESULTS ?? 11/03/13 1620 HPV DNA RESULT ??NEG ? Negative for HPV types 16, 18, 31, 33, 35, 39, 45, 51, 52, ? 56, 58, 59, 66, 68. ? Method: Cervista HPV HR (High Risk) DNA test. ----- ------- ORDER QUERIES: LMP: ? - MADIE ? Post ?PREVIOUS ATYPICAL: ?? BCP/HRT? ?? Rad Rx? ?? IUD?PAP PLUS HPV? Y ??REFLEX TO HR-HPV IF ASCUS ?? REFLEX TO HPV 16/18 IF HPV POS/PAP NEG Y HPV REGARDLESS?RFLX HPV IF LSIL ?? Signed Vy Wins[facility] CT(ASCP) 11/09/13 By the signature above, the attending physician certifies that he/she has personally conducted a gross and/or microscopic examination of the described specimens and rendered or confirmed the above diagnosis. Test Performed by [facility], [address] [place] [address] Actimize Architect: Viviane Romero MD PHD ----- ------- Ethel Cunningham MD PATHOLOGY ORDERABLES [facility] documented in this encounter Visit Diagnoses Not on filedocumented in this encounter Care Teams Hand Laster Relationship Specialty Start Date End Date Ethel Cunningham MD [address] [place] [phone] PCP - General 07/21/12 10/25/20 documented as of this encounter
--- OUTSIDE RECORDS SUMMARY | 2023-10-16 01:30 | XMS_ITS | Encounter Summary ---
Author Organization [facility] Address [address] [place] [address] Care Team Providers Care Cheerleading Coach Name Role Phone Ethel Cunningham MD Primary Care Provider [phone] Encounter Details Date Type Department Care Team (Late st Contact Info) Description 12/11/2016 Historical Results Only [facility] - [address] [address] Rhonda Doshi, PA [address] [place] [address] Social History Tobacco Use Types [...] Associated Diagnosis Comments FREE T4 POC - [facility] Routine 12/11/2016 14 :35 EDT documented in this encounter Results * (ABNORMAL) FREE T4 POC - [facility] (12/11/2016 14:35 EDT) FREE T4 - CV 0.37(L) 0.58 - 1.64 NG/DL 12/11/2016 14:37 EDT [facility] 12/11/2016 14:3 5 EDT 12/11/2016 14:35 EDT Rhonda BENTLEY CHEMISTRY & BLOOD GA S ORDERABLES [facility] documented in this encounter Visit Diagnoses Not on filedocumented in this encounter Care Teams Cheerleading Coach Relationship Specialty Start Date End Date Ethel Cunningham MD [address] [place] [phone] PCP - General 07/21/12 10/25/20 documented as of this encounter
--- OUTSIDE RECORDS SUMMARY | 2023-10-16 01:30 | XMS_ITS | Encounter Summary ---
Author Organization [facility] Address [address] [place] [address] Care Team Providers Care Tobacco Hanger Name Role Phone Ethel Cunningham MD Primary Care Provider [phone] Encounter Details Date Type Department Care Team (Late st Contact Info) Description 09/04/2016 Historical Results Only [facility] - [address] [address] Rhonda Doshi, PA [address] [place] [address] Social History Tobacco Use Types [...] Diagnosis Comments VITAMIN D 25 POC - [facility] Routine 09/04/2016 12:30 EDT documented in this encounter Results * VITAMIN D 25 POC - [facility] (09/04/2016 12:30 EDT) VIT D, 25 HYDROXY - [facility] 38 30 - 100 NG/ML 09/04/2016 12:31 EDT [facility] 09/04/2016 12:3 0 EDT 09/04/2016 12:30 EDT Rhonda BENTLEY CHEMISTRY & BLOOD GA S ORDERABLES [facility] documented in this encounter Visit Diagnoses Not on filedocumented in this encounter Care Teams Tobacco Hanger Relationship Specialty Start Date End Date Ethel Cunningham MD [address] [place] [address] PCP - General 07/21/12 10/25/20 documented as of this encounter
--- OUTSIDE RECORDS SUMMARY | 2023-10-16 01:30 | XMS_ITS | Encounter Summary ---
Author Organization [facility] Address [address] [place] [address] Care Team Providers Care Crank Hand Name Role Phone Ethel Cunningham MD Primary Care Provider [phone] Encounter Details Date Type Department Care Team (Late st Contact Info) Description 09/04/2016 Historical Results Only [facility] - [address] [address] Rhonda Doshi, PA [address] [place] [address] Social History Tobacco Use Types [...] Diagnosis Comments THYROID STIM HORMONE POC - [facility] Routine 09/04/2016 12:30 EDT documented in this encounter Results * THYROID STIM HORMONE POC - [facility] (09/04/2016 12:30 EDT) THYROID STIM HORMONE - [facility] 0.36 0.34 - 5.60 UIU/ML 09/04/2016 12:31 EDT [facility] 09/04/2016 12:3 0 EDT 09/04/2016 12:30 EDT Rhonda BENTLEY CHEMISTRY & BLOOD GA S ORDERABLES [facility] documented in this encounter Visit Diagnoses Not on filedocumented in this encounter Care Teams Crank Hand Relationship Specialty Start Date End Date Ethel Cunningham MD [address] [place] [address] PCP - General 07/21/12 10/25/20 documented as of this encounter
--- OUTSIDE RECORDS SUMMARY | 2023-10-16 01:30 | XMS_ITS | Encounter Summary ---
Author Organization [facility] Address [address] [place] [address] Care Team Providers Care Mathematical Physicist Name Role Phone Ethel Cunningham MD Primary Care Provider [phone] Encounter Details Date Type Department Care Team (Late st Contact Info) Description 12/11/2016 Historical Results Only [facility] - [address] [address] Rhonda Doshi, PA [address] [place] [address] Social History Tobacco Use Types [...] Date/Time Associated Diagnosis Comments POCT CHOLESTEROL LDL [place] Routine 12/11/2016 14:35 EDT documented in this encounter Results * (ABNORMAL) POCT CHOLESTEROL LDL ([facility] (12/11/2016 14:35 EDT) LDL CHOLESTEROL - [facility] 39(L) 60 - 100 mg/dl 12/11/2016 14:37 EDT [facility] 12/11/2016 14:3 5 EDT 12/11/2016 14:35 EDT Rhonda BENTLEY POINT OF CARE TEST O RDERABLES [facility] documented in this encounter Visit Diagnoses Not on filedocumented in this encounter Care Teams Mathematical Physicist Relationship Specialty Start Date End Date Ethel Cunningham MD [address] [place] [phone] PCP - General 07/21/12 10/25/20 documented as of this encounter
--- OUTSIDE RECORDS SUMMARY | 2023-10-16 01:30 | XMS_ITS | Encounter Summary ---
Author Organization Health system Address [address] [place] [address] Care Team Providers Care Oil Furnace Installer Name Role Phone Ethel Cunningham MD Primary Care Provider [phone] Encounter Details Date Type Department Care Team (Late st Contact Info) Description 11/26/2017 Historical Results Only [facility] - [address] [address] Rhonda Doshi, PA [address] [place] [address] Social History Tobacco Use Types [...] Comments FREE T4 POC - [facility] Routine 11/26/2017 12 :10 EDT documented in this encounter Results * (ABNORMAL) FREE T4 POC - [facility] (11/26/2017 12:10 EDT) FREE T4 - [facility] 0.57(L) 0.58 - 1.64 NG/DL 11/26/2017 12:11 EDT [facility] 11/26/2017 12:1 0 EDT 11/26/2017 12:10 EDT Rhonda BENTLEY CHEMISTRY & BLOOD GA S ORDERABLES [facility] documented in this encounter Visit Diagnoses Not on filedocumented in this encounter Care Teams Oil Furnace Installer Relationship Specialty Start Date End Date Ethel Cunningham MD [address] [place] [phone] PCP - General 07/21/12 10/25/20 documented as of this encounter
--- OUTSIDE RECORDS SUMMARY | 2023-10-16 01:30 | XMS_ITS | Encounter Summary ---
Author Organization [facility] Address [address] [place] [address] Care Team Providers Care Aircraft Restorer Name Role Phone Ethel Cunningham MD Primary Care Provider [phone] Encounter Details Date Type Department Care Team (Late st Contact Info) Description 06/25/2017 Historical Results Only [facility] Lab - [address] [address] Rhonda Doshi, PA [address] [place] [address] Social History Tobacco Use Types [...] Comments FREE T3 POC - CV Routine 06/25/2017 12 :25 EDT documented in this encounter Results * FREE T3 POC - CV (06/25/2017 12:25 EDT) Pathologist [facility] T3,FREE - CV 3.46 2.40 - 4.00 PG/ML 06/25/2017 12:26 EDT [facility] 06/25/2017 12:2 5 EDT 06/25/2017 12:25 EDT Rhonda BENTLEY CHEMISTRY & BLOOD GA S ORDERABLES [facility] documented in this encounter Visit Diagnoses Not on filedocumented in this encounter Care Teams Aircraft Restorer Relationship Specialty Start Date End Date Ethel Cunningham MD [address] [place] [address] PCP - General 07/21/12 10/25/20 documented as of this encounter
--- OUTSIDE RECORDS SUMMARY | 2023-10-16 01:30 | XMS_ITS | Encounter Summary ---
Author Organization [facility] Address [address] [place] [address] Care Team Providers Care Crm Coordinator Name Role Phone Ethel Cunningham MD Primary Care Provider [phone] Encounter Details Date Type Department Care Team (Late st Contact Info) Description 06/25/2017 Historical Results Only [facility] Lab - [address] [address] Rhonda Doshi, PA [address] [place] [address] Social History Tobacco Use Types [...] Diagnosis Comments THYROID STIM HORMONE POC [place] [facility] Routine 06/25/2017 12:25 EDT documented in this encounter Results * THYROID STIM HORMONE POC - [facility] (06/25/2017 12:25 EDT) THYROID STIM HORMONE - [facility] 4.14 0.45 - 5.33 UIU/ML 06/25/2017 12:26 EDT [facility] 06/25/2017 12:2 5 EDT 06/25/2017 12:25 EDT Rhonda BENTLEY CHEMISTRY & BLOOD GA S ORDERABLES [facility] documented in this encounter Visit Diagnoses Not on filedocumented in this encounter Care Teams Crm Coordinator Relationship Specialty Start Date End Date Ethel Cunningham MD [address] [place] [phone] PCP - General 07/21/12 10/25/20 documented as of this encounter
--- OUTSIDE RECORDS SUMMARY | 2023-10-16 01:30 | XMS_ITS | Encounter Summary ---
Author Organization [facility] Address [address] [place] [address] Care Team Providers Care Principal Examiner Name Role Phone Ethel Cunningham MD Primary Care Provider [phone] Encounter Details Date Type Department Care Team (Late st Contact Info) Description 09/04/2016 Historical Results Only [facility] Lab - [address] [address] Rhonda Doshi, PA [address] [place] [address] Social History Tobacco Use Types [...] Comments FREE T4 POC - [facility] Routine 09/04/2016 12 :30 EDT documented in this encounter Results * (ABNORMAL) FREE T4 POC - [facility] (09/04/2016 12:30 EDT) FREE T4 - CV 0.50(L) 0.58 - 1.64 NG/DL 09/04/2016 12:[address] [facility] 09/04/2016 12:3 0 EDT 09/04/2016 12:30 EDT Rhonda BENTLEY CHEMISTRY & BLOOD GA S ORDERABLES [facility] documented in this encounter Visit Diagnoses Not on filedocumented in this encounter Care Teams Principal Examiner Relationship Specialty Start Date End Date Ethel Cunningham MD [address] [place] [phone] PCP - General 07/21/12 10/25/20 documented as of this encounter
--- OUTSIDE RECORDS SUMMARY | 2023-10-16 01:30 | XMS_ITS | Encounter Summary ---
Author Organization [facility] Address [address] [place] [address] Care Team Providers Care Laboratory Equipment Installer Name Role Phone Ethel Cunningham MD Primary Care Provider [phone] Encounter Details Date Type Department Care Team (Late st Contact Info) Description 09/04/2016 Historical Results Only [facility] [place] Lab - [address] [address] Rhonda Doshi, PA [address] [place] [address] Social History Tobacco Use Types [...] Diagnosis Comments GLYCOHEMOGLOBIN POC - CV Routine 09/04/2016 12:30 EDT documented in this encounter Results * (ABNORMAL) GLYCOHEMOGLOBIN POC - [facility] [place] (09/04/2016 12:30 EDT) Hemoglobin A1c 6.1(H) 4.0 - 6.0 % 09/04/2016 12:31 EDT [facility] AVG CALCULATED GLUCOSE - [facility] [place] 123(H) 60 - 115 MG/DL 09/04/2016 12:31 EDT [facility] 09/04/2016 12:3 0 EDT 09/04/2016 12:30 EDT Rhonda BENTLEY CHEMISTRY & BLOOD GA S ORDERABLES [facility] documented in this encounter Visit Diagnoses Not on filedocumented in this encounter Care Teams Laboratory Equipment Installer Relationship Specialty Start Date End Date Ethel Cunninhgam MD [address] [place] [address] PCP - General 07/21/12 10/25/20 documented as of this encounter
--- OUTSIDE RECORDS SUMMARY | 2023-10-16 01:30 | XMS_ITS | Encounter Summary ---
Author Organization [facility] Address [address] [place] [address] Care Team Providers Care Metal Or Wood Blocker Name Role Phone Ethel Cunningham MD Primary Care Provider [phone] Encounter Details Date Type Department Care Team (Late st Contact Info) Description 09/04/2016 Historical Results Only [facility] Lab - [address] [address] Rhonda Doshi, PA [address] [place] [address] Social History Tobacco Use Types [...] Date/Time Associated Diagnosis Comments POCT CHOLESTEROL LDL ([facility]) Routine 09/04/2016 12:30 EDT documented in this encounter Results * (ABNORMAL) POCT CHOLESTEROL LDL ([facility]) (09/04/2016 12:30 EDT) LDL CHOLESTEROL - [facility] 57(L) 60 - 100 mg/dl 09/04/2016 12:31 EDT [facility] 09/04/2016 12:3 0 EDT 09/04/2016 12:30 EDT Rhonda BENTLEY POINT OF CARE TEST O RDERABLES [facility] documented in this encounter Visit Diagnoses Not on filedocumented in this encounter Care Teams Metal Or Wood Blocker Relationship Specialty Start Date End Date Ethel Cunningham MD [address] [place] [phone] PCP - General 07/21/12 10/25/20 documented as of this encounter
--- OUTSIDE RECORDS SUMMARY | 2023-10-16 01:30 | XMS_ITS | Encounter Summary ---
Author Organization [facility] Address [address] [place] [address] Care Team Providers Care Circular Tank Cooper Name Role Phone Ethel Cunningham MD Primary Care Provider [phone] Encounter Details Date Type Department Care Team (Late st Contact Info) Description 11/26/2017 Historical Results Only [facility] Lab - [address] [address] Rhonda Doshi, PA [address] [place] [address] Social History Tobacco Use Types [...] Comments FREE T3 POC - CV Routine 11/26/2017 12 :10 EDT documented in this encounter Results * FREE T3 POC - CV (11/26/2017 12:10 EDT) T3,FREE - CV 2.80 2.40 - 4.00 PG/ML 11/26/2017 12:11 EDT [facility] 11/26/2017 12:1 0 EDT 11/26/2017 12:10 EDT Rhonda BENTLEY CHEMISTRY & BLOOD GA S ORDERABLES [facility] documented in this encounter Visit Diagnoses Not on filedocumented in this encounter Care Teams Circular Tank Cooper Relationship Specialty Start Date End Date Ethel Cunningham MD [address] [place] [address] PCP - General 07/21/12 10/25/20 documented as of this encounter
--- OUTSIDE RECORDS SUMMARY | 2023-10-16 01:30 | XMS_ITS | Encounter Summary ---
Author Organization [facility] Address [address] [place] [address] Care Team Providers Care Copy Center Specialist Name Role Phone Ethel Cunningham MD Primary Care Provider [phone] Encounter Details Date Type Department Care Team (Late st Contact Info) Description 06/25/2017 Historical Results Only [facility] [place] [address] [address] Rhonda Doshi, PA [address] [place] [address] Social History Tobacco Use [...] Comments FREE T4 POC - [facility] Routine 06/25/2017 12 :25 EDT documented in this encounter Results * (ABNORMAL) FREE T4 POC - [facility] (06/25/2017 12:25 EDT) FREE T4 - [facility] 0.36(L) 0.58 - 1.64 NG/DL 06/25/2017 12:26 EDT [facility] 06/25/2017 12:2 5 EDT 06/25/2017 12:25 EDT Rhonda BENTLEY CHEMISTRY & BLOOD GA S ORDERABLES [facility] documented in this encounter Visit Diagnoses Not on filedocumented in this encounter Care Teams Copy Center Specialist Relationship Specialty Start Date End Date Ethel Cunningham MD [address] [place] [phone] PCP - General 07/21/12 10/25/20 documented as of this encounter
--- OUTSIDE RECORDS SUMMARY | 2023-10-16 01:30 | XMS_ITS | Encounter Summary ---
Author Organization [facility] Address [address] [place] [address] Care Team Providers Care Overweaver Name Role Phone Ethel Cunningham MD Primary Care Provider [phone] Encounter Details Date Type Department Care Team (Late st Contact Info) Description 09/04/2016 Historical Results Only [facility] [place] - [address] [address] Rhonda Doshi, PA [address] [place] [address] Social History Tobacco Use Types [...] Associated Diagnosis Comments LIPID PANEL POC [place] [facility] [place] Routine 09/04/2016 12:30 EDT documented in this encounter Results * (ABNORMAL) LIPID PANEL POC [place] [facility] [place] (09/04/2016 12:30 EDT) Triglyceride 282(H) 0.00 - 150.00 MG/DL 09/04/2016 12:31 EDT [facility] Cholesterol 154 0.00 - 200.00 MG/DL 09/04/2016 12:31 EDT [facility] HDL 41 40.00 - 60.00 MG/DL 09/04/2016 12:31 EDT [facility] 09/04/2016 12:3 0 EDT 09/04/2016 12:30 EDT Rhonda BENTLEY CHEMISTRY & BLOOD GA S ORDERABLES [facility] documented in this encounter Visit Diagnoses Not on filedocumented in this encounter Care Teams Overweaver Relationship Specialty Start Date End Date Ethel Cunningham MD [address] [place] [address] PCP - General 07/21/12 10/25/20 documented as of this encounter
--- OUTSIDE RECORDS SUMMARY | 2023-10-16 01:30 | XMS_ITS | Encounter Summary ---
Author Organization [facility] Address [address] [place] [address] Care Team Providers Care Wood Engraver Name Role Phone Debi Mclaughlin MD Primary Care Provider [phone] Encounter Details Date Type Department Care Team (Late st Contact Info) Description 07/07/2012 Results Only [facility] [phone] Debi Mclaughlin MD [address] [facility] [address] [place], [place] [address] Social History Tobacco Use Types Packs/Day Years Used Date Smoking Tobacco: Never Assessed Sex and Gender Information Value Date Recorded Sex Assigned at Not on file Gender Identity Not on file Sexual Orientation Not on file documented as of this encounter Plan of Treatment Not on file documented as of this encounter Procedures Procedure Name Priority Date/Time Associated Diagnosis Comments VL LOWER ARTERIAL PVR RESTING 07/22/2012 12:51 EDT documented in this encounter Results * VL LOWER ARTERIAL PVR RESTING (07/22/2012 12:51 EDT) Anatomical Region Laterality Modality Other 07/22/2012 12:5 1 EDT 07/24/2012 16:33 EDT Narrative 07/24/2012 16:33 EDT Lower Extremity Arterial Physiologic Evaluation PROCEDURE: ??Multi-level physiologic arterial evaluation of the lower extremities using pulse volume waveform analysis, segmental blood pressures and CW Doppler. [id number]. ? INDICATION: Claudication, PVD. ? HISTORY: ?HPT, HCH, Smoking, CAD, PVD. ? SEGMENTAL PRESSURES RIGHT Brachial Art: ??117 mmHg Above Knee: ?118 mmHg Index: ??0.93 Below Knee: ?102 mmHg Index: ??0.80 Ankle (MARINE DIESEL MECHANIC): ?96 mmHg Index: ??0.76 Ankle (DPA): ?97 mmHg Index: ??0.76 First Digit: ?49 mmHg TBI: ?0.39 LEFT Brachial Art: ??127 mmHg Above Knee: ?117 mmHg Index: ??0.92 Below Knee: ?100 mmHg Index: ??0.79 Ankle (MARINE DIESEL MECHANIC): ?? 104 mmHg Index: ??0.82 Ankle (DPA): ?94 mmHg Index: ??0.74 First Digit: ?60 mmHg TBI: ?0.47 CW DOPPLER ANALYSIS: RIGHT Right CATEGORY MANAGER: Biphasic ?Right SFA: Biphasic ? Right POP: Biphasic ?Right MARINE DIESEL MECHANIC: Monophasic ? Right DPA: Monophasic ? LEFT Left CATEGORY MANAGER: ??Biphasic ?Left SFA: ??Biphasic ? Left POP: ??Biphasic ?Left MARINE DIESEL MECHANIC: ??Monophasic ? Left DPA: ??Monophasic ? PLETHYSMOGRAPHIC FINDINGS Right: ?? Normal appearing pulse volume recordings. ? Left: ?Normal appearing pulse volume recordings. ? IMPRESSION Right: ?? 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 ?? Segmental pressures and waveforms demonstrate tibial-peroneal disease. ? Left: ?Segmental pressures and waveforms demonstrate femoral-popliteal disease. ?? Segmental pressures and waveforms demonstrate tibial-peroneal disease. Procedure Note 07/24/2012 Lower Extremity Arterial Physiologic Evaluation PROCEDURE: Multi-level physiologic arterial evaluation of the lower extremities using pulse volume waveform analysis, segmental blood pressures and CW Doppler. [address]70[address]. INDICATION: Claudication, PVD. HISTORY: HPT, HCH, Smoking, CAD, PVD. SEGMENTAL PRESSURES RIGHT Brachial Art: 117 mmHg Above Knee: 118 mmHg Index: 0.93 Below Knee: 102 mmHg Index: 0.80 Ankle (MARINE DIESEL MECHANIC): 96 mmHg Index: 0.76 Ankle (DPA): 97 mmHg Index: 0.76 First Digit: 49 mmHg TBI: 0.39 LEFT Brachial Art: 127 mmHg Above Knee: 117 mmHg Index: 0.92 Below Knee: 100 mmHg Index: 0.79 Ankle (MARINE DIESEL MECHANIC): 104 mmHg Index: 0.82 Ankle (DPA): 94 mmHg Index: 0.74 First Digit: 60 mmHg TBI: 0.47 CW DOPPLER ANALYSIS: RIGHT Right CATEGORY MANAGER: Biphasic Right SFA: Biphasic Right POP: Biphasic Right MARINE DIESEL MECHANIC: Monophasic Right DPA: Monophasic LEFT Left CATEGORY MANAGER: Biphasic Left SFA: Biphasic Left POP: Biphasic Left MARINE DIESEL MECHANIC: Monophasic Left DPA: Monophasic PLETHYSMOGRAPHIC FINDINGS Right: Normal appearing pulse volume recordings. Left: Normal appearing pulse volume recordings. 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 Segmental pressures and waveforms demonstrate tibial-peroneal disease. 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 Segmental pressures and waveforms demonstrate tibial-peroneal disease. Debi Mclaughlin MD [facility] documented in this encounter Visit Diagnoses Not on filedocumented in this encounter Care Teams Wood Engraver Relationship Specialty Start Date End Date Debi Mclaughlin MD [address] [address] PCP - General 07/07/12 07/20/12 documented as of this encounter
--- OUTSIDE RECORDS SUMMARY | 2023-10-16 01:30 | XMS_ITS | Encounter Summary ---
Author Organization [facility] Address [address] [place] [address] Care Team Providers Care Bobbin Winder Name Role Phone Ethel Cunningham MD Primary Care Provider Encounter Details Date Type Department Care Team (Late st Contact Info) Description 12/11/2016 Historical Results Only [facility] Lab - [address] [address] Rhonda Doshi, PA [address] [place] [address] Social History Tobacco Use Types [...] Associated Diagnosis Comments LIPID PANEL POC - [facility] Routine 12/11/2016 14:35 EDT documented in this encounter Results * (ABNORMAL) LIPID PANEL POC - [facility] (12/11/2016 14:35 EDT) Triglyceride 203(H) 0.00 - 150.00 MG/DL 12/11/2016 14:37 EDT [facility] Cholesterol 121 0.00 - 200.00 MG/DL 12/11/2016 14:37 EDT [facility] HDL 41 40.00 - 60.00 MG/DL 12/11/2016 14:37 EDT [facility] 12/11/2016 14:3 5 EDT 12/11/2016 14:35 EDT Rhonda BENTLEY CHEMISTRY & BLOOD GA S ORDERABLES [facility] documented in this encounter Visit Diagnoses Not on filedocumented in this encounter Care Teams Bobbin Winder Relationship Specialty Start Date End Date Ethel Cunningham MD [address] [place] [address] PCP - General 07/21/12 10/25/20 documented as of this encounter
--- OUTSIDE RECORDS SUMMARY | 2023-10-16 01:30 | XMS_ITS | Encounter Summary ---
Author Organization [facility] Address [address] [place] [address] Care Team Providers Care Switchboard Inspector Name Role Phone Ethel Cunningham MD Primary Care Provider [phone] Encounter Details Date Type Department Care Team (Late st Contact Info) Description 06/25/2017 Historical Results Only [facility] [place] [facility] - [address] [address] Rhonda Doshi, PA [address] [place] [address] Social History Tobacco Use Types [...] Diagnosis Comments GLYCOHEMOGLOBIN POC - [facility] Routine 06/25/2017 12:25 EDT documented in this encounter Results * GLYCOHEMOGLOBIN POC - CV (06/25/2017 12:25 EDT) Hemoglobin A1c 5.8 4.0 - 6.0 % 06/25/2017 12:26 EDT [facility] AVG CALCULATED GLUCOSE - [facility] [place] 113 60 - 115 MG/DL 06/25/2017 12:26 EDT [facility] 06/25/2017 12:2 5 EDT 06/25/2017 12:25 EDT Rhonda BENTLEY CHEMISTRY & BLOOD GA S ORDERABLES [facility] documented in this encounter Visit Diagnoses Not on filedocumented in this encounter Care Teams Switchboard Inspector Relationship Specialty Start Date End Date Ethel Cunningham MD [address] [place] [phone] PCP - General 07/21/12 10/25/20 documented as of this encounter
--- OUTSIDE RECORDS SUMMARY | 2023-10-16 01:30 | XMS_ITS | Encounter Summary ---
Author Organization [facility] Address [address] [place] [address] Care Team Providers Care Automotive Maintenance Technician Name Role Phone Ethel Cunningham MD Primary Care Provider [phone] Encounter Details Date Type Department Care Team (Late st Contact Info) Description 12/11/[address] [facility] Lab - [address] [address] Rhonda Doshi, PA [address] [place] [address] Social History Tobacco Use Types [...] Diagnosis Comments THYROID STIM HORMONE POC - [facility] Routine 12/11/2016 14:35 EDT documented in this encounter Results * THYROID STIM HORMONE POC - [facility] (12/11/2016 14:35 EDT) THYROID STIM HORMONE - [facility] 0.54 0.34 - 5.60 UIU/ML 12/11/2016 14:37 EDT [facility] 12/11/2016 14:3 5 EDT 12/11/2016 14:35 EDT Rhonda BENTLEY CHEMISTRY & BLOOD GA S ORDERABLES [facility] documented in this encounter Visit Diagnoses Not on filedocumented in this encounter Care Teams Automotive Maintenance Technician Relationship Specialty Start Date End Date Ethel Cunningham MD [address] [place] [address] PCP - General 07/21/12 10/25/20 documented as of this encounter
== END ==
PROVIDERS: PCP Family Medicine; Visit Provider Family Medicine
DX: Z12.39 Encounter for other screening for malignant neoplasm of breast (principal); Z12.31 Encounter for screening mammogram for malignant neoplasm of breast
CPT/HCPCS: 77063; 77067